=== PATIENT | female | born 1965 | race Caucasian/White ===

== ENCOUNTER → 2020-10-09 09:51 | Outpatient (CLI) | payer OTHER, SELFPAY ==
--- NOTE | 2020-10-09 09:54 | BI_ITS ---
MAMMOGRAPHY - BILATERAL SCREENING REASON FOR EXAM: Female, 55 years old. Routine annual screening examination. PERTINENT HISTORY: Non-contributory. TECHNIQUE: Digital bilateral breast ross (3D mammographic acquisition) in the CC and MLO projections. 2-D mediolateral oblique (MLO) and craniocaudad (CC) views of both breasts were obtained. CAD: Full Field Digital Mammography with Computer Added Detection was performed. COMPARISON: Comparison is made with prior outside examination dated 05/12/2017. FINDINGS: Breast Composition: There are scattered areas of fibroglandular density. There are no dominant masses or suspicious calcifications. Stable small benign-appearing bilateral axillary lymph. No other significant abnormalities are identified. There has been no significant change since the prior study. BI/SCRN MAMM (CAD)W/ROSS BILAT IMPRESSION: Stable bilateral screening mammogram. Yearly follow-up mammogram recommended. (A) ASSESSMENT CATEGORY: BIRADS Category 2: Benign. A letter regarding these results will be sent to the patient by the facility within 30 days. Approximately 10% of breast cancers are not detected by mammography. A normal mammogram should not delay biopsy of a clinically suspicious abnormality. [id number] Electronically Signed: Ahsan Wright MD at 10:59 EDT , Service support ,
== END ==
PROVIDERS: PCP Nurse Practitioner Family; Referring Provider Nurse Practitioner Family; Visit Provider Nurse Practitioner Family
DX: Z12.31 Encounter for screening mammogram for malignant neoplasm of breast (principal)
CPT/HCPCS: 77063; 77067

== ENCOUNTER 2021-07-15 12:02 | Outpatient (CLI) | payer OTHER, SELFPAY | END 2021-07-15 23:59 | disposition short-term general hospital (02) | LOC: LABSPEC 12:04 | PROVIDERS: PCP Nurse Practitioner Family; Referring Provider Physician Assistant; Visit Provider Physician Assistant | DX: U07.1 COVID-19 (principal) | CPT/HCPCS: 87635; U0003; U0005 ==

== ENCOUNTER 2021-10-15 06:21 | Day surgery (SDC) | payer OTHER, SELFPAY ==
[2021-10-15] VITALS (14 sets, daily range): BP systolic 110–159; BP diastolic 44–118; PULSE 58–67; RESP 16–18; TEMP 36.3–36.7; O2SAT 97–100; BMI 37.8
[2021-10-15] MEDS: Lactated Ringers 1,000 ML 15 ML IV (06:56)
--- NOTE | 2021-10-15 07:00 | PCM.HP.STD ---
HPI - General HPI Narrative MILAD L[address], is a 56 F who presents for screening colonoscopy. She had a previous one when she was in her 40s. She has a family history of colon cancer. Fortunately she has been asymptomatic. No abdominal pain. No black stools. No blood in her stools. She has a good feeling of wellness. [facility] Medical History (Updated 10/15/21 @ 07:[address] Aquilino Anaya MD) Alcohol use Anxiety Arthritis Back pain Fatty liver History of edema History of irregular heartbeat Hypertension Injury of back Leg cramps Non-smoker Post-menopausal Thyroid disease Wears glasses Home Medications ergocalciferol (vitamin D2) 1,250 mcg (50,000 unit) capsule 1 unit PO DAILY 09/09/21 [History Last Taken Unknown] hydrochlorothiazide 25 mg tablet 25 mg PO DAILY 09/09/21 [History Last Taken Unknown] levothyroxine 50 mcg tablet 1 tablet PO DAILY 09/09/21 [History Last Taken Unknown] terbinafine HCl 250 mg tablet 250 mg PO DAILY 09/09/21 [History Last Taken Unknown] biotin 1 mg PO DAILY 10/13/21 [History Last Taken Unknown] cholecalciferol (vitamin D3) [Vitamin D3] 50 mcg PO DAILY 10/13/21 [History Last Taken Unknown] magnesium 200 mg PO DAILY 10/13/21 [History Last Taken Unknown] turmeric 400 mg PO DAILY 10/13/21 [History Last Taken Unknown] vit C-Zn gluc-herbal no.325 [Elderberry Zinc Vit C] 1 flakita PO DAILY 10/13/21 [History Last Taken Unknown] Allergy/AdvReac Type Severity Reaction Status Date / Time metronidazole [From Flagyl] Allergy Hives Verified 10/15/21 06:43 Surgical History (Updated 10/13/21 @ 13:31 by Christie Victoria) History of delivery Hx laparoscopic cholecystectomy Hx of hysterectomy Social History Smoking Status: Never smoker ROS Constitutional Constitutional: Reports systems reviewed and no addt'l complaints, except as documented Cardiovascular Cardiovascular: Denies chest pain Respiratory/Chest Respiratory/Chest: Denies shortness of breath at rest Gastrointestinal Gastrointestinal: Denies abdominal pain, change in bowel habits, hematochezia or melena Vital Signs Vital Signs Vital Signs: 10/15/21 06:45 10/15/21 06:46 Temperature 98.0 F Temperature Source Temporal Pulse Rate 58 L Respiratory Rate 18 Respiratory Pattern Normal Blood Pressure 129/75 H Blood Pressure Mean 93 Blood Pressure Source Monitor Blood Pressure Position Semi-Fowlers Blood Pressure Location Left Arm Pulse Ox 100 Oxygen Delivery Method Room Air Weight Weight: 227 lb 9.6 oz Body Mass Index (BMI) 37.8 Physical Exam Const alert, oriented x3 and no apparent distress General Appearance: cooperative and comfortable Eyes General Eye: normal appearance of both eyes Neck General: normal visual inspection Chest inspection of chest normal Resp Effort and Inspection: able to speak in complete sentences and symmetric chest movement Auscultation: clear to auscultation bilaterally Cardio regular rate and regular rhythm GI soft to palpation, non-tender and non-distended Extremity no calf tenderness Neuro oriented x3 Psych thought process normal Results Lab / Micro Data Micro: Microbiology 10/14/21 12:55 Interface Orders SARS-CoV-2 Antigen (Rapid) - Final Assessment & Plan Assessment/Plan (1) Screening for intestinal cancer: PLAN: The patient presents via open access today for screening colonoscopy. She is aware of the technique, benefit, risk, alternatives. She has had an opportunity to ask and have questions answered. We will proceed as noted. Aquilino Anaya M.D., F.A.C.S.
[2021-10-15] MEDS: Midazolam 5 MG/ML Syringe (07:36)
--- NOTE | 2021-10-15 08:02 | OP.COLON_ITS ---
Patient Name: Kira Cedillo Procedure Date: 10/15/2021 7:30 AM Date of : 1965 Age: 56 Procedure: Colonoscopy Indications: Screening for colorectal malignant neoplasm Providers: Aquilino Anaya MD Medicines: Midazolam 4.5 mg IV, Meperidine 100 mg IV Patient Profile: Last Colonoscopy: more than 10 years ago. Complications: No immediate complications. Procedure: Pre-Anesthesia Assessment: - Prior to the procedure, a History and Physical was performed, and patient medications and allergies were reviewed. The patient's tolerance of previous anesthesia was also reviewed. The risks and benefits of the procedure and the sedation options and risks were discussed with the patient. All questions were answered, and informed consent was obtained. Prior Anticoagulants: The patient has taken no previous anticoagulant or antiplatelet agents. ASA Grade Assessment: II - A patient with mild systemic disease. After reviewing the risks and benefits, the patient was deemed in satisfactory condition to undergo the procedure. After I obtained informed consent, the scope was passed under direct vision. Throughout the procedure, the patient's blood pressure, pulse, and oxygen saturations were monitored continuously. The adult colonoscope was introduced through the anus and advanced to the cecum, identified by appendiceal orifice and ileocecal valve. The colonoscopy was performed without difficulty. The patient tolerated the procedure well. The quality of the bowel preparation was good. The ileocecal valve and the appendiceal orifice were photographed. Moderate Sedation: Moderate (conscious) sedation was personally administered by the endoscopist. The following parameters were monitored: oxygen saturation, heart rate, blood pressure, and response to care. Total physician intraservice time was 15 minutes. Scope In: 7:40:25 AM Scope Withdrawal Time 0 hours 7 minutes 52 seconds Scope Out: 7:56:48 AM Total Procedure Duration Time 0 hours 16 minutes 23 seconds Findings: The digital rectal exam findings include non-thrombosed internal hemorrhoids and internal hemorrhoids that prolapse with straining, but spontaneously regress to the resting position (Grade II). The colon (entire examined portion) appeared normal. Impression: - Non-thrombosed internal hemorrhoids and internal hemorrhoids that prolapse with straining, but spontaneously regress to the resting position (Grade II) found on digital rectal exam. - The entire examined colon is normal. - No specimens collected. Recommendation: - Discharge patient to home. - Resume previous diet. - Continue present medications. - Repeat colonoscopy in 10 years for screening purposes. Procedure Code(s): --- Professional --- 72204, Colonoscopy, flexible; diagnostic, including collection of specimen(s) by brushing or washing, when performed (separate procedure) 64591, 58, Moderate sedation services provided by the same physician or other qualified health district manager primary care sales performing the diagnostic or therapeutic service that the sedation supports, requiring the presence of an independent trained observer to assist in the monitoring of the patient's level of consciousness and physiological status; initial 15 minutes of intraservice time, patient age 5 years or older Diagnosis Code(s): --- Professional --- Z12.11, Encounter for screening for malignant neoplasm of colon K64.1, Second degree hemorrhoids CPT copyright 2017 [employer] [place] [employer]. All rights reserved. The codes documented in this report are preliminary and upon judicial clerk review may be revised to meet current compliance requirements. Aquilino Anaya MD 10/15/2021 8:02:14 AM This report has been signed electronically. Number of Addenda: 0 Note Initiated On: 10/15/2021 7:30 AM
--- NOTE | 2021-10-15 08:03 | OP.CCLET_ITS ---
10/15/2021 Emperatriz Jordan [place] [id number] [address] Re : Colonoscopy procedure for Kira Small Dear Dr. Jordan This procedure was performed on Friday, October 15, 2021. My impressions and recommendations are as follows: Impressions : - Non-thrombosed internal hemorrhoids and internal hemorrhoids that prolapse with straining, but spontaneously regress to the resting position (Grade II) found on digital rectal exam. - The entire examined colon is normal. - No specimens collected. Recommendations : - Discharge patient to home. - Resume previous diet. - Continue present medications. - Repeat colonoscopy in 10 years for screening purposes. My findings are described in the full procedure note, which is enclosed. If I can be of further assistance, please feel free to contact me at Doctor phone number(s): Work: . Sincerely, Aquilino Anaya MD 10/15/2021 8:02:14 AM This report has been signed electronically.
== END 2021-10-15 08:53 | disposition home or self-care (01) ==
LOC: EN 06:21 → AC 06:23
PROVIDERS: PCP Family Medicine; Referring Provider Family Medicine; Visit Provider Surgery
PROC: 0DJD8ZZ Inspection of Lower Intestinal Tract, Via Natural or Artificial Opening Endoscopic (ICD-10-PCS; CPT 45378; principal; 2021-10-15 07:25)
DX: Z12.11 Encounter for screening for malignant neoplasm of colon (principal); K64.1 Second degree hemorrhoids; I10 Essential (primary) hypertension; E07.9 Disorder of thyroid, unspecified; Z20.822 Contact with and (suspected) exposure to COVID-19; Z78.0 Asymptomatic menopausal state; Z79.890 Hormone replacement therapy; Z80.0 Family history of malignant neoplasm of digestive organs
CPT/HCPCS: 45378; 87426; 99152; 99153; C9803; J7120

== ENCOUNTER → 2021-10-27 | Outpatient (CLI) | payer OTHER, SELFPAY ==
[2021-10-27 10:17] LABS: AST(SGOT) 12 U/L (15-37); Alanine Aminotransfer ALT/SGPT 29 U/L (13-56); Albumin, Serum 4.1 g/dL (3.2-5.0); Alkaline Phosphatase 71 U/L (45-117); Bilirubin, Direct 0.11 mg/dL (0.00-0.30); Globulin 3.4 g/dL (2.2-4.2); Protein, Total 7.5 g/dL (6.4-8.2)
== END | disposition home or self-care (01) ==
LOC: MTLAB 08:14
PROVIDERS: PCP Family Medicine; Referring Provider Family Medicine; Visit Provider Family Medicine
DX: B35.1 Tinea unguium (principal)
CPT/HCPCS: 36415; 80076

== ENCOUNTER → 2021-12-03 | Outpatient (CLI) | payer OTHER, SELFPAY ==
--- NOTE | 2021-12-03 13:52 | RAD_ITS ---
STUDY: X-RAY - RIGHT FOOT CLINICAL: Female, 56 years old. Pain at the base of the fifth metatarsal. TECHNIQUE: 3 view(s) of the foot. COMPARISON: None. FINDINGS: Plantar spurs. Normal visualized subtalar, talonavicular, calcaneocuboid, tarsal and tarsometatarsal articulations. Normal metatarsi. Normal metatarsophalangeal joint of the great toe. Normal tibial and fibular sesamoid bones. Normal interphalangeal joint of the great toe. Normal phalanges of the great toe. Normal second through fifth metatarsophalangeal joints. Normal interphalangeal joints and phalanges of the lesser toes. The soft tissue structures are unremarkable. RAD/Foot min 3 Views IMPRESSION: Calcaneal spurs. Electronically Signed: Ahsan Wright MD at 16:20 EDT ,
== END | disposition home or self-care (01) ==
LOC: MTRAD 13:50
PROVIDERS: PCP Family Medicine; Referring Provider Family Medicine; Visit Provider Family Medicine
DX: M79.671 Pain in right foot (principal)
CPT/HCPCS: 73630

== ENCOUNTER → 2021-12-10 | Outpatient (CLI) | payer OTHER, SELFPAY ==
--- NOTE | 2021-12-10 14:10 | BI_ITS ---
MAMMOGRAPHY - BILATERAL SCREENING REASON FOR EXAM: Female, 56 years old. Routine annual screening examination. PERTINENT HISTORY: Non-contributory. TECHNIQUE: Digital bilateral breast ross (3D mammographic acquisition) in the CC and MLO projections. 2-D mediolateral oblique (MLO) and craniocaudad (CC) views of both breasts were obtained. CAD: Full Field Digital Mammography with Computer Added Detection was performed. COMPARISON: Screening mammogram from 10/09/2020. FINDINGS: Breast Composition: There are scattered areas of fibroglandular density. There are no dominant masses or suspicious calcifications. No other significant abnormalities are identified. There has been no significant change since the prior study. BI/SCRN MAMM (CAD)W/ROSS BILAT IMPRESSION: Stable bilateral screening mammogram. Yearly follow-up mammogram recommended. (A) ASSESSMENT CATEGORY: BIRADS Category 1: Negative. A letter regarding these results will be sent to the patient by the facility within 30 days. Approximately 10% of breast cancers are not detected by mammography. A normal mammogram should not delay biopsy of a clinically suspicious abnormality. [id number] Electronically Signed: Anoop Cormier, at 8:50 EDT ,
== END | disposition home or self-care (01) ==
LOC: OPBI 14:08
PROVIDERS: PCP Family Medicine; Referring Provider Family Medicine; Visit Provider Family Medicine
DX: Z12.31 Encounter for screening mammogram for malignant neoplasm of breast (principal)
CPT/HCPCS: 77063; 77067

== ENCOUNTER → 2022-01-12 | Outpatient (CLI) | payer OTHER, SELFPAY ==
[2022-01-12 10:52] LABS: Anion Gap 2 (5-15); BUN 16 mg/dL (7-18); BUN/Creat Ratio 26.9 RATIO (10-20); Calcium,Total 8.9 mg/dL (8.5-10.1); Chloride 105 mmol/L (98-107); EST Glomerular Filtration Rate 110 mL/min (>60); Est Glom Filt Rate - Afr Amer 133 mL/min (>60); Glucose 93 mg/dL (74-106); Potassium 4.1 mmol/L (3.5-5.1); Sodium Level 138 mmol/L (136-145); Thyroid Stim Hormone (TSH) 2.31 uIU/mL (0.358-3.74)
== END | disposition home or self-care (01) ==
LOC: MTLAB 07:48
PROVIDERS: PCP Family Medicine; Referring Provider Internal Medicine Endocrinology, Diabetes & Metabolism; Visit Provider Internal Medicine Endocrinology, Diabetes & Metabolism
DX: E03.8 Other specified hypothyroidism (principal)
CPT/HCPCS: 36415; 80048; 84443

== ENCOUNTER → 2022-07-20 | Outpatient (CLI) | payer OTHER, SELFPAY ==
[2022-07-20 15:47] LABS: Vitamin D,25 Hydroxy 85.4 ng/mL
[2022-07-20 16:02] LABS: Anion Gap 7 (5-15); BUN 20 mg/dL (7-18); BUN/Creat Ratio 27.5 RATIO (10-20); Calcium,Total 9.2 mg/dL (8.5-10.1); Chloride 99 mmol/L (98-107); Creatinine, Serum 0.73 mg/dL (0.55-1.02); EST Glomerular Filtration Rate 87 mL/min (>60); Est Glom Filt Rate - Afr Amer 106 mL/min (>60); Glucose 89 mg/dL (74-106); Potassium 3.8 mmol/L (3.5-5.1); Sodium Level 138 mmol/L (136-145); Thyroid Stim Hormone (TSH) 1.57 uIU/mL (0.358-3.74)
== END | disposition home or self-care (01) ==
LOC: MTLAB 13:05
PROVIDERS: PCP Family Medicine; Referring Provider Internal Medicine Endocrinology, Diabetes & Metabolism; Visit Provider Internal Medicine Endocrinology, Diabetes & Metabolism
DX: E03.8 Other specified hypothyroidism (principal); E55.9 Vitamin D deficiency, unspecified
CPT/HCPCS: 36415; 80048; 82306; 84443

== ENCOUNTER → 2022-08-12 | Outpatient (CLI) | payer OTHER, SELFPAY ==
[2022-08-12 12:40] LABS: Absolute Neutrophil Count 2.1 X10^3/uL (2.0-7.7); Basophil# 0.04 X10^3/uL; Basophil% 0.9 % (0-1); Eosinophil# 0.14 X10^3/uL; Hematocrit 43.2 % (37-47); Hemoglobin 14.6 g/dL (12.0-15.0); Lymphocyte % 42.8 % (19-41); Mean Corp Hgb Conc 33.8 g/dL (32-36); Mean Corpuscular Hgb 29.7 pg (27.0-32.0); Mean Corpuscular Volume 87.8 fL (81-99); Mean Platelet Vol. 10.8 fl (6.2-12.0); Monocyte# 0.34 X10^3/uL; Monocyte% 7.3 % (0-10); NRBC Flagged by Analyzer 0 % (0-5); Neutrophil # 2.14 X10^3/uL (2.7-7.7); Neutrophil % 45.8 % (47-70); Platelet Count 221 K/mm3 (150-450); RBC Distribution Width CV 12.5 % (11.6-14.6); RBC Distribution Width SD 40.3 fl (35.1-43.9); Red Blood Count 4.92 M/mm3 (4.2-5.4); White Blood Count 4.7 K/mm3 (4.4-11.0)
[2022-08-12 13:38] LABS: Cholesterol 249 mg/dL (200); High Density Lipoprotein 63 mg/dL; Triglycerides 123 mg/dL; Very Low Density Lipoprotein 25 mg/dL (5-40)
== END | disposition home or self-care (01) ==
LOC: BFHLAB 10:49
PROVIDERS: PCP Family Medicine; Visit Provider Family Medicine
DX: Z00.00 Encounter for general adult medical examination without abnormal findings (principal); I10 Essential (primary) hypertension; E78.5 Hyperlipidemia, unspecified
CPT/HCPCS: 36415; 80061; 85025

== ENCOUNTER → 2022-12-30 | Outpatient (CLI) | payer OTHER, SELFPAY ==
--- NOTE | 2022-12-30 10:21 | BI_ITS ---
MAMMOGRAPHY - BILATERAL SCREENING REASON FOR EXAM: Female, 57 years old. Routine annual screening examination. PERTINENT HISTORY: Non-contributory. TECHNIQUE: Digital bilateral breast ross (3D mammographic acquisition) in the CC and MLO projections. 2-D mediolateral oblique (MLO) and craniocaudad (CC) views of both breasts were obtained. CAD: Full Field Digital Mammography with Computer Added Detection was performed. COMPARISON: Comparison is made with prior study December 10, 2021 and October 09, 2020. FINDINGS: Breast Composition: There are scattered areas of fibroglandular density. There are no dominant masses or suspicious calcifications. Stable small benign-appearing bilateral axillary lymph. No other significant abnormalities are identified. There has been no significant change since the prior study. BI/SCRN MAMM (CAD)W/ROSS BILAT IMPRESSION: Stable bilateral screening mammogram. Yearly follow-up mammogram recommended. (A) ASSESSMENT CATEGORY: BIRADS Category 2: Benign. A letter regarding these results will be sent to the patient by the facility within 30 days. Approximately 10% of breast cancers are not detected by mammography. A normal mammogram should not delay biopsy of a clinically suspicious abnormality. [id number] Electronically Signed: Ahsan Wright MD at 12:52 EDT ,
== END | disposition home or self-care (01) ==
LOC: OPBI 10:20
PROVIDERS: PCP Family Medicine; Referring Provider Family Medicine; Visit Provider Family Medicine
DX: Z12.31 Encounter for screening mammogram for malignant neoplasm of breast (principal)
CPT/HCPCS: 77063; 77067

== ENCOUNTER → 2023-02-03 | Outpatient (CLI) | payer OTHER, SELFPAY ==
[2023-02-03 15:49] LABS: Anion Gap 7 (5-15); BUN 15 mg/dL (7-18); BUN/Creat Ratio 24.8 RATIO (10-20); Chloride 102 mmol/L (98-107); EST Glomerular Filtration Rate 108 mL/min (>60); Est Glom Filt Rate - Afr Amer 130 mL/min (>60); Glucose 100 mg/dL (74-106); Potassium 3.6 mmol/L (3.5-5.1); Sodium Level 137 mmol/L (136-145); Thyroid Stim Hormone (TSH) 1.26 uIU/mL (0.358-3.74)
== END | disposition home or self-care (01) ==
LOC: MTLAB 12:59
PROVIDERS: PCP Family Medicine; Referring Provider Internal Medicine Endocrinology, Diabetes & Metabolism; Visit Provider Internal Medicine Endocrinology, Diabetes & Metabolism
DX: E03.8 Other specified hypothyroidism (principal)
CPT/HCPCS: 36415; 80048; 82306; 84443

== ENCOUNTER → 2024-01-12 | Outpatient (CLI) | payer OTHER, SELFPAY ==
--- NOTE | 2024-01-12 09:22 | BI_ITS ---
MAMMOGRAPHY - BILATERAL SCREENING REASON FOR EXAM: Female, 58 years old. Routine annual screening examination. PERTINENT HISTORY: Non-contributory. TECHNIQUE: Digital bilateral breast ross (3D mammographic acquisition) in the CC and MLO projections. 2-D mediolateral oblique (MLO) and craniocaudad (CC) views of both breasts were obtained. CAD: Full Field Digital Mammography with Computer Added Detection was performed. COMPARISON: Comparison is made with prior study dated December 30, 2022 and December 10, 2021. FINDINGS: Breast Composition: There are scattered areas of fibroglandular density. There is evidence of a new 1.6 cm x 1.2 cm mass in the central medial anterior aspect of the right breast. There is also enlargement of the right axilla lymph nodes at this time. Biopsy recommended. No other significant abnormalities are identified. BI/SCRN MAMM (CAD)W/ROSS BILAT IMPRESSION: New 1.6 cm x 1.2 cm mass in the central medial anterior aspect of the right breast. Enlarged right axillary lymph nodes. Biopsy recommended. ASSESSMENT CATEGORY: BIRADS Category 4: Suspicious - Biopsy Should Be Considered. A letter regarding these results will be sent to the patient by the facility within 30 days. Approximately 10% of breast cancers are not detected by mammography. A normal mammogram should not delay biopsy of a clinically suspicious abnormality. [id number] Electronically Signed: Ashan Wright MD at 10:42 EDT ,
[2024-01-12 10:12] LABS: Absolute Lymphocyte Count 2.03 X10^3/uL (0.83-4.51); Basophil# 0.02 X10^3/uL; Basophil% 0.4 % (0-1); Eosinophils% 2.2 % (0-5); Hematocrit 42.1 % (37-47); Hemoglobin 14.1 g/dL (12.0-15.0); Lymphocyte # 2.03 X10^3/ul (0.83-4.51); Lymphocyte % 44.8 % (19-41); Mean Corp Hgb Conc 33.5 g/dL (32-36); Mean Corpuscular Hgb 28.8 pg (27.0-32.0); Mean Corpuscular Volume 86.1 fL (81-99); Mean Platelet Vol. 10.4 fl (6.2-12.0); Monocyte# 0.35 X10^3/uL; Monocyte% 7.7 % (0-10); NRBC Flagged by Analyzer 0 % (0-5); Neutrophil # 2.03 X10^3/uL (2.7-7.7); Neutrophil % 44.9 % (47-70); Platelet Count 210 K/mm3 (150-450); RBC Distribution Width CV 12.9 % (11.6-14.6); RBC Distribution Width SD 40.3 fl (35.1-43.9); Red Blood Count 4.89 M/mm3 (4.2-5.4); White Blood Count 4.5 K/mm3 (4.4-11.0)
[2024-01-12 11:13] LABS: ALB/GLOB Ratio 1.2 RATIO (0.9-2.4); AST(SGOT) 17 U/L (15-37); Alanine Aminotransfer ALT/SGPT 28 U/L (13-56); Albumin, Serum 3.9 g/dL (3.2-5.0); Alkaline Phosphatase 79 U/L (45-117); Anion Gap 7 (5-15); BUN 13 mg/dL (7-18); BUN/Creat Ratio 22.1 RATIO (10-20); Calcium,Total 9.2 mg/dL (8.5-10.1); Chloride 101 mmol/L (98-107); Cholesterol 238 mg/dL (200); Creatinine, Serum 0.59 mg/dL (0.55-1.02); EST Glomerular Filtration Rate 111 mL/min (>60); Est Glom Filt Rate - Afr Amer 134 mL/min (>60); Globulin 3.3 g/dL (2.2-4.2); Glucose 85 mg/dL (74-106); High Density Lipoprotein 60 mg/dL; Potassium 3.8 mmol/L (3.5-5.1); Protein, Total 7.2 g/dL (6.4-8.2); Sodium Level 135 mmol/L (136-145); Triglycerides 149 mg/dL; Very Low Density Lipoprotein 30 mg/dL (5-40)
== END | disposition home or self-care (01) ==
LOC: OPBI 09:02
PROVIDERS: PCP Family Medicine; Referring Provider Family Medicine; Visit Provider Family Medicine
DX: Z00.00 Encounter for general adult medical examination without abnormal findings (principal); Z12.31 Encounter for screening mammogram for malignant neoplasm of breast; I10 Essential (primary) hypertension; E78.5 Hyperlipidemia, unspecified
CPT/HCPCS: 36415; 77063; 77067; 80053; 80061; 85025

== ENCOUNTER → 2024-01-19 | Outpatient (CLI) | payer OTHER, SELFPAY ==
--- NOTE | 2024-01-19 | BRBX_PTH ---
PATIENT: [address] LOC: OPUS U#:[id number] AGE/SX: 58/F ROOM: RE01/19/[address]: Dr. Emperatriz Jordan MD : 1965 BED: DIS: 01/19/2024 SPEC #: [id number] RECD: 01/19/24 12:00 STATUS: EVA MARIE #: [id number] ALEXANDER: 01/19/24 00:[address]: Emperatriz Jordan DEPT: SURGICAL PATHOLOGY RECD BY: Truong Cortes Tissues: A - Axillary lymph node, NOS B - Right breast, NOS Procedures: Frozen Section (charge) Surgery Specimen Level IV HEADER OPERATION: Biopsy of right breast mass and lymph node PRE-OP DIAGNOSIS: Right breast mass TISSUE SUBMITTED: A- Lymph node right axillary, B- Right breast mass tissue-3o'clock, 2.0cm from nipple Ischemic Time: 1 minute Fixation Time: 30 hours FROZEN SECTION DIAGNOSIS Right axillary lymph node, biopsy: Metastatic carcinoma, non-small cell. / 01/19/2024 MICROSCOPIC DIAGNOSIS A. Right axillary lymph node, core biopsy: Metastatic carcinoma consistent with breast primary. See comment. B. Right breast, core biopsy: Invasive ductal carcinoma. See synoptic report below. / 01/22/2024 COMMENT A. Immunohistochemistry ([id number]) supports the above diagnosis. B. INVASIVE BREAST CANCER SUMMARY: Procedure: Needle core biopsy Specimen Laterality: Right breast Tumor site: 3o'clock, 2.0cm from nipple Histologic type: Invasive ductal carcinoma Provisional Histologic grade: 3 Tubule Differentiation Score: 3 Nuclear Pleomorphism Score: 3 Mitotic Rate Score: 2 Tumor Size ( greatest dimension): 9.0mm Ductal Carcinoma In situ: Not identified Angiolymphatic Invasion: Not identified Microcalcifications: Not identified Additional Findings: None Breast Marker Study: [id number] ER:>95%(strong intensity) VA:32% (moderate intensity) Her2:1-2+(equivocal) Ki67:75% [id number]:Pending The above summary is in compliance with [employer] [place] [employer] (CAP) Cancer Protocols Checklist and [place] [employer] Committee on Cancer (AJCC), Staging Manual, 8th Ed. Dualish results for Her2 will be reported as a addendum. Case has been reviewed in consultation with Dr. Torres who concurs with the above diagnosis. IDC:SJ MICROSCOPIC DESCRIPTION Slides are reviewed. GROSS DESCRIPTION A. Received in saline for frozen section diagnosis labeled with the patient's name is a specimen designated Right lymph node. The specimen consists of two core of light dinh soft tissue each measuring 0.5cm in length and 0.1cm in diameter. The entire specimen is submitted for frozen section diagnosis in one cassette. B. Received in fixative is one container labeled with the patient's name and designated Right breast. The specimen consists of two elongated fragments of fibroadipose tissue measuring in aggregate 1.5 x 0.2 x 0.1cm. The entire specimen is submitted in one cassette. Elizabeth 01/19/2024 TC:0 CPT: 64685v0 ADDENDUM ADDENDUM ADDENDUM ADDENDUM ADDENDUM ADDENDUM ADDENDUM ADDENDUM ADDENDUM ADDENDUM ADDENDUM ADDENDUM ADDENDUM ADDENDUM ADDENDUM ADDENDUM ADDENDUM ADDENDUM ADDENDUM ADDENDUM ADDENDUM ADDENDUM 02/05/2024 09:47 ADDENDUM 02/05/2024 09:47 ADDENDUM 02/05/2024 09:47 ADDENDUM 02/05/2024 09:47 ADDENDUM 02/05/2024 09:47 This addendum is added to incorporate an outside pathology consultation report. The case was examined at [facility] (#[id number]) and the following diagnosis was rendered. A. Right axillary lymph node, core biopsy: Metastatic carcinoma consistent with breast primary. Outside immunohistochemistry stains reviewed: Estrogen receptor positive, Progesterone receptor positive (rare weak). AE1/3 positive, GATA3 positive, Mammaglobin positive (weak). B. Right breast, core biopsy: Invasive ductal carcinoma (8mm in this core biopsy specimen), Gordon grade 3. Outside immunohistochemistry stains reviewed: Estrogen receptor positive (>95%), Progesterone receptor positive (32%), per outside report ADELITA for HER2/ester not amplified; e-cadherin positive, calponin negative, CK8 positive. Please see complete above mentioned consultation report in EMR
--- NOTE | 2024-01-19 | IMM_PTH ---
PATIENT: [address] LOC: [facility] U#:[id number] AGE/SX: 58/F ROOM: RE01/19/[address]: Dr. Emperatriz Jordan MD : 1965 BED: DIS: 01/19/2024 SPEC #: [id number] RECD: 01/22/24 11:39 STATUS: EVA REQ #: [id number] ALEXANDER: 01/19/24 00:[address]: Emperatriz Jordan DEPT: IMMUNOHISTOCHEMISTRY RECD BY: Truong Cortes Tissues: A - Axillary lymph node, NOS B - Right breast, NOS Procedures: CALPONIN-1 (add) CK5-6 (add) CK8 (add) E-CAD (add) ER (add) HER2 TONI (add) KI-67 (add) MAMM (add) P53 (add) NJ (add) Pankeratin (add) GATA3 (add) P40 (add) MOC-31 (add) ER (initial) NJ (initial) PHYSICIAN & INSTITUTION [address] [address] SPECIMEN INFORMATION: Tissue Source: A- Right axillary lymph node, B- Right breast mass Clinical Info: Right breast mass Specimen Number: [id number], B CPT code: [id number] METHODOLOGY: Deparaffinized sections of prefer/formalin-fixed tissue or PAP/DQ stained slides are incubated with monoclonal/polyclonal antibodies/oligonucleotide probes. Localization is made via biotin free immunoperoxidase method. Appropriate controls are performed and reacted as expected. Results on target cell population are indicated in the following table: RESULTS: ANTIBODY / CLONE RESULT Block A GATA3 (L50-823) positive Mammaglobin (31A5) positive, weak ER (6F11) positive NJ (1E2) positive, rare AE1-3 (AE1/AE3/PCK26) positive Block B P53 (DO-7) positive, missense pattern Ki-67 (30-9) positive, 75% CK8 (86swdnZ01) positive CK5-6 (D5 & 1684) negative Calponin-1 (QA812S) negative P40 (BC28) positive E-Cad (ECH-6) positive MOC-31 (2641) MORPHOMETRIC ANALYSIS ER (clone 6F11) > 95%, strong intensity NJ (clone 16/1E2) 32%, moderate intensity Her-2Neu (clone CB11) 1-2+ The prognostic test for HER2 is performed on formalin-fixed paraffin embedded tissue. A 3+ (positive) staining pattern is defined as intense, homogeneous, complete, circumferential membranous staining in >10% of contiguous tumor cells. A similar weak (2+) staining pattern is interpreted as equivocal. ADELITA follow-up testing is recommended for all equivocal cases. Positivity/negativity for ER/NJ is reported if > or < 1% of the tumor cells are immuno- reactive, respectively. The ASCO/CAP criteria is used for scoring. Reference: Journal of Clinical Oncology, 2013; 31:3913-4650 & 2010; 16:9539-1933. Ischemic time: Less than one hour: Yes. These assays have not been validated on decalcified tissues. Results should be interpreted with caution given the likelihood of false negativity on decalcified specimens or fixation greater than 72 hours. Alternative testing methods (FISH/dualISH for Her2; gene expression for ER) are recommended, if applicable. Please notify the laboratory if additional testing is required. These tests were developed and their performance characteristics determined by [facility]. They may not have been cleared or approved by the U.S. Food and Drug Administration. The FDA has determined that such clearance or approval is not necessary. The above immunohistochemical/dualISH markers are ordered and reviewed by the Pathologist. The test for HER 2 is performed on formalin-fixed paraffin embedded tissue using the CB11 mouse monoclonal antibody ([employer]). A 3+ staining pattern is interpreted as positive and is defined as a strong membranous staining involving the entire cell membrane in over 30% of invasive tumor cells. A similar weak staining pattern (2+) involving 10% of the tumor cells is interpreted as equivocal. HER 2 follow-up testing by FISH is recommended for all equivocal results. Reference: [place] [employer] of [employer] and the College [employer] [place] [employer] (J. Clin. Oncol. 23: 118-145, 2007). Fixative Used: Formalin; Duration of Fixation: 30 Hrs.; Sample Adequate: Yes INTERPRETATION: A. Right axillary lymph node, biopsy: Consistent with metastatic breast carcinoma. B. Right breast, biopsy: Invasive ductal carcinoma, provisional grade 3. Positive for estrogen receptors (favorable prognostic indicator). Positive for progesterone receptors (favorable prognostic indicator). Equivocal for overexpression of UHS6hlb. AM/mr 01/23/2024 ADDENDUM ADDENDUM ADDENDUM ADDENDUM ADDENDUM ADDENDUM ADDENDUM ADDENDUM ADDENDUM ADDENDUM ADDENDUM ADDENDUM ADDENDUM ADDENDUM ADDENDUM ADDENDUM ADDENDUM ADDENDUM ADDENDUM ADDENDUM ADDENDUM 01/26/2024 11:41 ADDENDUM 01/26/2024 11:41 ADDENDUM 01/26/2024 11:41 ADDENDUM 01/26/2024 11:41 ADDENDUM 01/26/2024 11:41 IN SITU HYBRIDIZATION (ADELITA) FOR HER2 Interpretation: Negative/ Not amplified HER2 : CEP-17 Ratio: 1.0 Average HER2 Signal: 2.1 Average CEP-17 Signal: 2.0 Number of Tumor Cells Scanned: 50 Interpretative Information: The INFORM HER2 Dual ADELITA DNA Probe Cocktail assay is performed on formalin-fixed paraffin embedded tissue and determines HER2 gene status by detecting HER2 copies via silver in situ hybridization (SISH) and Chromosome 17 copies via chromogenic red in situ hybridization on tumor cells. A minimum of 20 cells representing > 10% of contiguous and homogeneous invasive tumor cells were analyzed. HER2 gene status is classified as Non-amplified (HER2/Chr17 ratio < 2.0) or Amplified (HER2/Chr17 ratio greater than or equal to 2.0). If the resulting HER2/Chr17 ratio falls within 1.8 - 2.2 (Borderline), retesting by FISH is recommended. Reference: Marty AC, Magdalena ARECHIGAH, Lupe DG, et al: Recommendations for Human Epidermal Growth Factor Receptor 2 Testing in Breast Cancer: [place] [employer] / [employer] [place] [employer] Clinical Practice Guideline Update. J Clin Oncol 31:4608-8817, 2013.
--- NOTE | 2024-01-19 07:52 | US_ITS ---
STUDY: ULTRASOUND BREAST - RIGHT REASON FOR EXAM: Female, 58 years old. Abnormal mammogram. TECHNIQUE: Axial and longitudinal images of the RIGHT breast were performed with a high resolution ultrasound transducer. # OF IMAGES: 101 COMPARISON: Comparison is made with prior mammogram dated January 12, 2024. FINDINGS: RIGHT Breast: The right axilla was examined with ultrasound. There is a 2.4 cm x 1.5 cm 1.2 cm irregular appearing lymph node in the right axilla with increased blood flow. Biopsy recommended. There is also evidence of the 2, benign appearing lymph nodes in the axilla. The larger measures 1.2 cm x 1.2 cm x 0.5 cm. There is evidence of a 2.2 cm x 1.9 cm x 1.7 cm hypoechoic irregular nodule with posterior shadowing at the 3:00 position of the breast at 2 cm from nipple. US/Breast Limited Unilateral IMPRESSION: Abnormal appearing lymph node in the right axilla measuring 2.4 cm x 1.5 cm bone 0.2 cm. 2.2 cm x 1.9 cm x 1.7 cm hypoechoic irregular nodule with some posterior acoustical shadowing at the 3:00 position breast at 2 cm from the nipple. Biopsy recommended. ASSESSMENT CATEGORY: BIRADS Category 5: Highly Suggestive of Malignancy - Appropriate Action Should Be Taken. A letter regarding these results will be sent to the patient by the facility within 30 days. Electronically Signed: Ahsan Wright MD at 9:02 EDT ,
== END | disposition home or self-care (01) ==
PROVIDERS: PCP Family Medicine; Referring Provider Family Medicine; Visit Provider Family Medicine
DX: R92.8 Other abnormal and inconclusive findings on diagnostic imaging of breast (principal)
CPT/HCPCS: 76642; 81002; 88305; 88331; 88341; 88342

== ENCOUNTER → 2024-02-12 | Outpatient (CLI) | payer OTHER, SELFPAY ==
[2024-02-12 12:50] LABS: Anion Gap 4 (5-15); BUN 14 mg/dL (7-18); BUN/Creat Ratio 24.9 RATIO (10-20); Calcium,Total 8.9 mg/dL (8.5-10.1); Chloride 104 mmol/L (98-107); Creatinine, Serum 0.56 mg/dL (0.55-1.02); EST Glomerular Filtration Rate 117 mL/min (>60); Est Glom Filt Rate - Afr Amer 141 mL/min (>60); Glucose 80 mg/dL (74-106); Potassium 3.7 mmol/L (3.5-5.1); Sodium Level 138 mmol/L (136-145); Thyroid Stim Hormone (TSH) 1.49 uIU/mL (0.358-3.74)
== END | disposition home or self-care (01) ==
PROVIDERS: PCP Family Medicine; Referring Provider Internal Medicine Endocrinology, Diabetes & Metabolism; Visit Provider Internal Medicine Endocrinology, Diabetes & Metabolism
DX: E03.8 Other specified hypothyroidism (principal); E55.9 Vitamin D deficiency, unspecified
CPT/HCPCS: 36415; 80048; 82306; 84443

== ENCOUNTER 2024-10-03 15:00 | Outpatient (CLI) | payer OTHER, SELFPAY | END 2024-10-03 23:59 | disposition home or self-care (01) | LOC: MEDOUTP 15:04 | PROVIDERS: PCP Family Medicine | DX: Z45.2 Encounter for adjustment and management of vascular access device (principal); C50.811 Malignant neoplasm of overlapping sites of right female breast; Z17.0 Estrogen receptor positive status [ER+] | CPT/HCPCS: 96523 ==

== ENCOUNTER → 2024-12-16 | Outpatient (CLI) | payer OTHER, SELFPAY ==
[2024-12-16 11:02] LABS: Anion Gap 10 (5-15); BUN 12 mg/dL (4-19); Carbon Dioxide 23.1 mmol/L (21.0-32.0); Chloride 102 mmol/L (98-108); Creatinine, Serum 0.75 mg/dL (0.70-1.20); EST Glomerular Filtration Rate 91 (>60); Potassium 4.3 mmol/L (3.3-5.1); Sodium Level 135 mmol/L (133-145)
== END | disposition home or self-care (01) ==
LOC: MTLAB 09:00
PROVIDERS: PCP Family Medicine
DX: E87.1 Hypo-osmolality and hyponatremia (principal)
CPT/HCPCS: 36415; 80051; 82565; 84520

== ENCOUNTER → 2024-12-26 | Outpatient (CLI) | payer OTHER, SELFPAY ==
--- OUTSIDE RECORDS SUMMARY | 2024-12-26 07:09 | XMS RPT_ITS | CCD ---
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 Name Role Phone UNKNOWN, PROVIDER Unavailable Unavailable WM JIN MD Consulting Unavailable CURRY KELLEY NP Admitting Unavailab CURRY Perez NP Primary Care Unavailab CURRY Perez COUNSELING CENTER DIRECTOR Attending Unavailab le PROVIDER, UNKNOWN Consulting Unavailable PROVIDER, UNKNOWN Consulting Unavailable PROVIDER, UNKNOWN Consulting Unavailable SAM HOWELL Primary Care Unavailable SAM HOWELL Attending Unavailable WM JIN MD Consulting Unavailable DANTESAM RESENDIZ Admitting Unavailable PROVIDER, UNKNOWN Consulting Unavailable PROVIDER, UNKNOWN Consulting Unavailable PROVIDER, UNKNOWN Consulting Unavailable Rehan COUNSELING CENTER DIRECTOR, COUNSELING CENTER DIRECTOR-C Curry Primary Care Provide r Rehan COUNSELING CENTER DIRECTOR, MARCELLA-C Curry Referring Provider DoctorDr. Stoddard Attending Provider Nurse, Surgery Attending Provider Unavailable Laura Lauren Attending Provider Unavailable Dr. Aquilino Anaya Attending Provider Dr. Aquilino Anaya Other Provider Dr. Emperatriz Jordan Primary Care Provider Dr. Emperatriz Jordan Referring Provider [phone] Rehan COUNSELING CENTER DIRECTOR, MARCELLA-Margarito Steiner Primary Care Provide r Rehan COUNSELING CENTER DIRECTOR, COUNSELING CENTER DIRECTOR-C Curry Referring Provider Unavailable Primary Care Provider Unavailabl e Unavailable Primary Care Provider Unavailabl e Unavailable Primary Care Provider Unavailabl e Emperatriz Jordan MD Primary Care Provider Dr. Emperatriz Jordan MD Primary Care Provider Dr. Emperatriz Jordan MD Referring Provider [phone] Thomas ARMAS Attending Provider Dr. Nils Pang MD Attending Provider Dr. Thomas Hanson DO Referring Provider RADHA PHIPPS Attending Provider RADHA PHIPPS Referring Provider [phone] Julian GHOSH, [facility] Provider Vevay Dr. Thomas ARMAS Referring Provider TATIANNA ANIN E Attending Unavailable MIEDEL, EMPERATRIZ Referring Unavailable AN, LEONILA E Admitting Unavailable MIEDEL, EMPERATRIZ Primary Care Unavailable MIEDEL, EMPERATRIZ Primary Care Unavailable BADER, GILBERT Attending Unavailable MIEDEL, EMPERATRIZ Referring Unavailable BADER, GILBERT Attending Unavailable MIEDEL, EMPERATRIZ Primary Care Unavailable ROBOTHAM, RACHEL Referring Unavailable BADER, GILBERT Referring Unavailable MIEDEL, BYRON Primary Care Unavailable BADER, GILBERT Attending Unavailable SELF, SELF Referring Unavailable IHISSCHEDULE, INTERVENTIONAL RAD Attending Unavailable IHISSCHEDULE, INTERVENTIONAL RAD Admitting Unavailable MIEDEL, EMPERATRIZ Primary Care Unavailable BADER, GILBERT Attending Unavailable MIEDEL, EMPERATRIZ Primary Care Unavailable MIEDEL, EMPERATRIZ Referring Unavailable BADER, GILBERT Attending Unavailable MIEDEL, EMPERATRIZ Primary Care Unavailable MIEDEL, EMPERATRIZ Referring Unavailable MIEDEL, EMPERATRIZ Primary Care Unavailable ROEL GARCÍA Attending Unavailable MIEDEL, EMPERATRIZ Referring Unavailable BADER, GILBERT Referring Unavailable BADER, GILBERT Attending Unavailable MIEDEL, EMPERATRIZ Primary Care Unavailable BADER, GILBERT Referring Unavailable BADER, GILBERT Attending Unavailable MIEDEL, EMPERATRIZ Primary Care Unavailable MIEDEL, EMPERATRIZ Primary Care Unavailable MIEDEL, EMPERATRIZ Referring Unavailable AN, LEONILA E Attending Unavailable BADER, GILBERT Referring Unavailable MIEDEL, EMPERATRIZ Primary Care Unavailable BADER, GILBERT Attending Unavailable BADER, GILBERT Referring Unavailable BADER, GILBERT Attending Unavailable MIEDEL, EMPERATRIZ Primary Care Unavailable AN, LEONILA E Attending Unavailable AN, LEONILA E Referring Unavailable MIEDEL, EMPERATRIZ Primary Care Unavailable AN, LEONILA E Attending Unavailable AN, LEONILA E Referring Unavailable [facility] Primary Care Unavailable AN, LEONILA E Attending Unavailable AN, LEONILA E Referring Unavailable [facility] Primary Care Unavailable AN, LEONILA E Attending Unavailable AN, LEONILA E Referring Unavailable [facility] Primary Care Unavailable AN, LEONILA E Attending Unavailable [facility] Referring Unavailable [facility] Primary Care Unavailable BADER, GILBERT Referring Unavailable BADER, GILBERT Attending Unavailable [facility] Primary Care Unavailable THERESA MARROQUIN Attending Unavailable THERESA MARROQUIN Referring Unavailable [facility] Primary Care Unavailable BADER, GILBERT Attending Unavailable RACHEL VAZ Referring Unavailable [facility] Primary Care Unavailable BADER, GILBERT Attending Unavailable [facility] Primary Care Unavailable [facility] Referring Unavailable BADER, GILBERT Attending Unavailable [facility] Primary Care Unavailable [facility] Referring Unavailable [facility] Primary Care Unavailable GARCÍA, ROEL E Referring Unavailable GARCÍA, ROEL E Attending Unavailable [facility] Primary Care Unavailable GARCÍA, ROEL E Referring Unavailable GARCÍA, ROEL E Attending Unavailable [facility] Primary Care Unavailable GARCÍA, ROEL E Referring Unavailable GARCÍA, ROEL E Attending Unavailable [facility] Primary Care Unavailable GARCÍA, ROEL E Referring Unavailable AN, LEONILA E Attending Unavailable BADER, GILBERT Referring Unavailable [facility] Primary Care Unavailable BADER, GILBERT Attending Unavailable BADER, GILBERT Referring Unavailable BADER, GILBERT Attending Unavailable [facility] Primary Care Unavailable BADER, GILBERT Referring Unavailable BADER, GILBERT Attending Unavailable [facility] Primary Care Unavailable BADER, GILBERT Attending Unavailable [facility] Primary Care Unavailable [facility] Referring Unavailable BADER, GILBERT Attending Unavailable [facility] Primary Care Unavailable [facility] Referring Unavailable BADER, GILBERT Referring Unavailable BADER, GILBERT Attending Unavailable [facility] Primary Care Unavailable [facility] Primary Care Unavailable WAYNE LÓPEZ Attending Unavailable [facility], EMPERATRIZ Referring Unavailable BADER, GILBERT Attending Unavailable [facility] Primary Care Unavailable MIEDEL, EMPERATRIZ Referring Unavailable BADER, GILBERT Referring Unavailable BADER, GILBERT Attending [facility]available [facility] Primary Care Unavailable BADER, GILBERT Attending Unavailable [facility] Primary Care Unavailable MIEDEL, EMPERATRIZ Referring Unavailable BADER, GILBERT Attending Unavailable [facility], BYRON Primary Care Unavailable MIEDEL, EMPERATRIZ Referring Unavailable BADER, GILBERT Referring Unavailable BADER, GILBERT Attending Unavailable MIED, BYRON Primary Care Unavailable BADER, GILBERT Referring Unavailable BADER, GILBERT [facility] Primary Care Unavailable BADER, GILBERT Referring Unavailable BADER, GILBERT Attending Unavailable [facility] Primary Care Unavailable [facility], [place] Primary Care Unavailable WAYNE LÓPEZ Attending Unavailable MIED, EMPERATRIZ Referring Unavailable BADER, GILBERT Attending Unavailable BADER, GILBERT Referring Unavailable [facility] Primary Care Unavailable BADER, GILBERT Attending Unavailable [facility] Primary Care Unavailable [facility], EMPERATRIZ Referring Unavailable [facility], [place] Attending Unavailable [facility] Primary Care Unavailable WIED, EMPERATRIZ Referring Unavailable WAYNE LÓPEZ Attending Unavailable [facility] Primary Care Unavailable VERN CORONA Referring Unavailable BADER, GILBERT Referring Unavailable BADER, GILBERT Attending Unavailable [facility] Primary Care Unavailable [facility], [place] Primary Care Unavailable YENNY MORALES Attending Unavailable SELF, SELF Referring Unavailable SELF, SELF Referring Unavailable ANDRAOS, TAISHA ASIF Y Attending Unava ilable [facility], [place] Primary Care Unavailable ROEL GARCÍA Referring Unavailable ROEL GARCÍA Attending Unavailable [facility] Primary Care Unavailable BANNERCHIARA Referring Unavailable [facility], [place] Primary Care Unavailable CHIARA MATA Attending Unavailable ROEL GARCÍA E Referring Unavailable ROEL GARCÍA Attending Unavailable [facility] Primary Care Unavailable LEONILA AN Attending Unavailable [facility] Referring Unavailable [facility] Primary Care Unavailable BADER, GILBERT Referring Unavailable [facility] Primary Care Unavailable BADER, GILBERT Attending Unavailable BADER, GILBERT Referring Unavailable RADHA ROBERTS Attending Unavailable [facility] Primary Care Unavailable DAGO RIVERA Referring Unavailable KING MINA Attending Unavailable [facility] Primary Care Unavailable BADER, GILBERT Referring Unavailable BADER, GILBERT Attending Unavailable [facility] Primary Care Unavailable BADER, GILBERT Referring Unavailable BADER, GILBERT Attending Unavailable [facility] Primary Care Unavailable BADER, GILBERT Referring Unavailable BADER, GILBERT Attending Unavailable [facility] Primary Care Unavailable AN, LEONILA E Attending Unavailable [facility] Referring Unavailable [facility] Primary Care Unavailable BADER, GILBERT Referring Unavailable BADER, GILBERT Attending Unavailable [facility] Primary Care Unavailable BADER, GILBERT Referring Unavailable BADER, GILBERT Attending Unavailable [facility] Primary Care Unavailable THERESA MARROQUIN Attending Unavailable [facility] Referring Unavailable [facility] Primary Care Unavailable WAYNE LÓPEZ Attending Unavailable [facility] Referring Unavailable [facility] Primary Care Unavailable BADER, GILBERT Referring Unavailable BADER, GILBERT Attending Unavailable [facility] Care Unavailable AN, LEONILA E Attending Unavailable [facility] Primary Care Unavailable AN, LEONILA E Referring Unavailable AN, LEONILA E Attending Unavailable AN, LEONILA E Referring Unavailable [facility] Primary Care Unavailable AN, LEONILA E Attending Unavailable [facility] Primary Care Unavailable AN, LEONILA E Referring Unavailable AN, LEONILA E Attending Unavailable [facility] Primary Care Unavailable ROBOTJACQUE, RACHEL Referring Unavailable GARCÍA, ROEL E Referring Unavailable GARCÍA, ROEL E Attending Unavailable [facility] Primary Care Unavailable GARCÍA, ROEL E Referring Unavailable GARCÍA, ROEL E Attending Unavailable BADER, GILBERT Attending Unavailable BADER, GILBERT Referring Unavailable [facility] Primary Care Unavailable BADER, GILBERT Referring Unavailable BADER, GILBERT Attending Unavailable [facility], EMP[facility] Primary Care Unavailable BADER, GILBERT Referring Unavailable BADER, GILBERT Attending Unavailable MIEDEL, EMPERATRIZ Primary Care Unavailable BADER, GILBERT Referring Unavailable BADER, GILBERT Attending Unavailable MIEDEL, EMPERATRIZ Primary Care Unavailable ERIC CAMPOS Referring Unavailable MIEDEL, EMPERATRIZ Primary Care Unavailable CAMPOSERIC Attending Unavailable CAMPOSERIC Attending Unavailable MIEDEL, EMPERATRIZ Primary Care Unavailable ROEL GARCÍA Referring Unavailable MIEDEL, EMPERATRIZ Primary Care Unavailable MIEDEL, EMPERATRIZ Primary Care Unavailable BADER, GILBERT Attending Unavailable MIEDEL, EMPERATRIZ Referring Unavailable ANTATIANNAIN E Attending Unavailable WIEDEL, EMPERATRIZ Referring Unavailable MIEDEL, EMPERATRIZ Primary Care Unavailable MIEDEL, EMPERATRIZ Referring Unavailable MIEDEL, EMPERATRIZ Primary Care Unavailable AN LEONILA E Attending Unavailable AN, LEONILA E Admitting Unavailable AN LEONILA E Attending Unavailable WIEDEL, EMPERATRIZ Referring Unavailable AN, LEONILA E Admitting Unavailable MIEDEL, EMPERATRIZ Primary Care Unavailable RADHA ROBERTS Attending Provider RADHA ROBERTS Referring Provider Paedel, Emperatriz Primary Care Unavailable Miedel, Emperatriz Referring Unavailable Rachel Vaz Attending Unavailable Thomas Hanson Attending Unavailable [facility], Emperatriz Primary Care Unavailable Miedel, Emperatriz Referring Unavailable Thomas Hanson Referring Unavailable Miedel, Emperatriz Primary Care Unavailable Thomas Hanson Attending Unavailable Thomas Hanson Attending Unavailable Thomas Hanson Referring Unavailable Miedel, Emperatriz Primary Care Unavailable Thomas Hanson Attending Unavailable Miedel, Emperatriz Primary Care Unavailable Thomas Hanson Referring Unavailable Miedel, Emperatriz Primary Care Unavailable JUAN M LOYA Referring Unavailable JUAN M LOYA Attending Unavailable Miedel, Emperatriz Primary Care Unavailable Miedel, Emperatriz Referring Unavailable Miedel, Emperatriz Attending Unavailable Miedel, Emperatriz Primary Care Unavailable Miedel, Emperatriz Referring Unavailable Miedel, Emperatriz Attending Unavailable Thomas Hanson Attending Unavailable Leopoldo Hansone Referring Unavailable Miedel, Emperatriz Primary Care Unavailable [place], [place] Primary Care Unavailable Leti Nava Attending Unavailable Leti Nava Referring Unavailable [place], [place] Primary Care Unavailable JUAN M LOYA Referring Unavailable JUAN M LOYA Attending Unavailable Thomas Hanson Attending Unavailable Valentin, Thomas Referring Unavailable Miedel, [place] Primary Care Unavailable Valentin, Thomas Attending Unavailable Valentin, Thomas Referring Unavailable Miedel, [place] Primary Care Unavailable Thomas Hanson Attending Unavailable Valentin, Thomas Referring Unavailable [place], [place] Primary Care Unavailable Thomas Hanson Attending Unavailable [place], [place] Primary Care Unavailable Miedel, Emperatriz Referring Unavailable Thomas Hanson Attending Unavailable Miedel, [place] Primary Care Unavailable Valentin, Thomas Referring Unavailable Valentin, Thomas Attending Unavailable Valentin, Thomas Referring Unavailable Miedel, [place] Primary Care Unavailable Valentin, Thomas Referring Unavailable Thomas Hanson Attending Unavailable [place], [place] Primary Care Unavailable Valentin, Thomas Referring Unavailable [place], [place] Primary Care Unavailable Thomas Hanson Attending Unavailable [place], [place] Primary Care Unavailable Mied, Emperatriz Referring Unavailable Rachel Vaz Attending Unavailable Thomas Hanson Attending Unavailable Valentin, Thomas Referring Unavailable [place], [place] Primary Care Unavailable Valentin, Thomas Referring Unavailable Miedel, [place] Primary Care Unavailable Thomas Hanson Attending Unavailable Allergies Allergy Classification Reported Allergen(s) Allergy Type Date of Onset Reaction(s) Facility (20 sources) [facility] Allergy 2 Other: See Bina, Hives [facility] (20 sources) Silver Propensity to adverse reactions to drug 4 [facility] (1 source) [facility] Drug Allergy 5 [facility] Repository Medications Current Medications Medication Drug Class(es) Dates Sig (Normalized) Sig (Original) abemaciclib 100 mg oral tablet (5 sources) Start: 12-02-2024 take 1 tablet by mouth twice daily Abemaciclib (Verzenio) 100 mg tablet Active 100 mg PO TWICE A DAY December 02, 2024 12:00am Start: 11-13-2024 End: 12-13-2024 take 1 tablet by mouth twice daily abemaciclib (Verzenio) 150 MG tablet Indications: Malignant neoplasm of overlapping sites of right breast in female, estrogen receptor positive Take 1 tablet by mouth 2 times daily. Swallow tablets whole; do not crush, chew, or split. Start cycle 1 on 11/15/24 56 tablet 11/13/2024 12/13/2024 Discontinued (Duplicate (suppress cancel msg)) acetaminophen 325 mg oral ta blet (20 sources) Start: 12-13-2024 975 mg, Oral, ONCE (OUTPT CLINIC), 1 dose, Starting on Mon12/13/24 at 1204, Until Mon12/13/24 at 1225, Administer prior to zoledronic acid infusion. It is not necessary to wait 30 minutes between premedication and infusion. Maximum dose of acetaminophen is 4000 mg from all sources in 24 hours. Start: 11-26-2024 End: 11-26-2024 take 1 tablet by mouth every six hours as needed 650 mg, Oral, EVERY 6 HOURS NEEDED, Starting on Mon11/26/24 at 1142, Until Mon11/26/24 at 1428, Mild Pain, Maximum dose of acetaminophen is 4000 mg from all sources in 24 hours., Post-op/Post-Proc Start: 08-15-2024 take 2 tablets by mo [facility] every six hours as needed Acetaminophen 325 mg tablet Active 650 mg PO EVERY 6 HOURS as needed August 15, 2024 1:00am Start: 08-09-2024 End: 08-09-2024 take 1 tablet by mouth every eight hours 975 mg, Oral, EVERY 8 HOURS NON-STANDARD, First dose on Mon08/09/24 at 1415, Until Discontinued, Administer each dose four hours after dose of ibuprofen., Post-op/Post-Proc Start: 08-09-2024 End: 08-09-2024 take 1 tablet by mouth every six hours as needed 650 mg, Oral, EVERY 6 HOURS NEEDED, Starting on Mon08/09/24 at 1241, Until Mon08/09/24 at 1746, Mild Pain, Contact anesthesiologist prior to administration if patient received acetaminophen perioperatively., Recovery Start: 08-09-2024 End: 08-09-2024 take 4000 mg by mouth every twenty-four hours 975 mg, Oral, ONCE, 1 dose, On Mon08/09/24 at 0830, Maximum dose of acetaminophen is 4000 mg from all sources in 24 hours., Pre-op/Pre-Proc Start: 05-03-2024 take 1 dose by mouth once 650 mg, Oral, ONCE (OUTPT CLINIC), 1 dose, Starting on Mon05/03/24 at 1015, Until Mon05/03/24 at 1017, Premedicate 30 minutes before agent. Start: 02-16-2024 End: 08-16-2024 take 3 tablets by mouth every eight hours in the evening Acetaminophen 325 MG tablet Take 3 tablets by mouth every 8 hours for 7 days. 63 tablet 08/09/2024 1:51 PM EST 08/09/2024 Active Start: 02-16-2024 End: 02-16-2024 take 1 tablet by mouth every eight hours 975 mg, Oral, EVERY 8 HOURS NON-STANDARD, First dose on Mon02/16/24 at 1045, Until Discontinued, Administer each dose four hours after dose of ibuprofen., Post-op/Post-Proc Start: 02-16-2024 End: 02-16-2024 take 4000 mg by mouth every twenty-four hours 975 mg, Oral, ONCE, 1 dose, On Mon02/16/24 at 0700, Maximum dose of acetaminophen is 4000 mg from all sources in 24 hours., Pre-op/Pre-Proc anastrozole 1 mg oral tablet (9 sources) Aromatase Inhibitor Start: 11-08-2024 take 1 tablet by mouth once daily Anastrozole 1 mg tablet Active 1 mg PO daily December 02, 2024 12:00am B Complex Vitamins (VITAMIN B COMPLEX PO) (20 sources) take 1 tablet by mouth once daily B Complex Vitamins (VITAMIN B COMPLEX PO) Take 1 tablet by mouth daily. Suspended take 1 tablet by mouth once edmond y B Complex Vitamins (VITAMIN B COMPLEX PO) Take 1 tablet by mouth daily. Active ergocalciferol 1.25 mg oral capsule (20 sources) Provitamin D2 Compound Start: 08-15-2024 take 1 capsule by mouth every other week Ergocalciferol (Vitamin D2) 1,250 mcg (50,000 unit) capsule Active 1 U PO .q other week August 15, 2024 10:43am Start: 09-09-2021 End: 08-15-2024 take 1 capsule by mouth once daily Ergocalciferol (Vitamin D2) 1,250 mcg (50,000 unit) capsule Discontinued 1 U PO DAILY September 09, 2021 1:00am August 15, 2024 10:46am gabapentin 300 mg oral capsule (20 sources) Anti-epileptic Agent Start: 06-28-2024 End: 03-18-2025 take 1 capsule by mouth three times daily Gabapentin 300 mg capsule Active 300 mg PO THREE TIMES A DAY August 15, 2024 1:00am hydroCHLOROthiazide 25 mg oral tablet (20 sources) Thiazide Diuretic Start: 09-09-2021 take 1 tablet by mouth once daily Hydrochlorothiazide 25 mg tablet Active 25 mg PO DAILY September 09, 2021 1:00am ibuprofen 400 mg oral tablet (20 sources) Nonsteroidal Anti-inflammatory Drug Start: 08-09-2024 End: 08-16-2024 take 1 tablet by mouth every six hours Ibuprofen 600 MG tablet Take 1 tablet by mouth every 6 hours for 7 days. 28 tablet 08/09/2024 08/16/2024 Active Start: 08-09-2024 End: 08-09-2024 take 1 tablet by mouth every eight hours 600 mg, Oral, EVERY 8 HOURS NON-STANDARD, First dose on Mon08/09/24 at 1415, Until Discontinued, Administer each dose four hours after dose of acetaminophen., Post-op/Post-Proc Start: 02-16-2024 take 1 tablet by janice th every eight hours as needed Ibuprofen 400 mg tablet Active 400 mg PO Q8H as needed August 15, 2024 1:00am Start: 02-16-2024 End: 02-16-2024 take 1 tablet by mouth every eight hours 600 mg, Oral, EVERY 8 HOURS NON-STANDARD, First dose on Mon02/16/24 at 1045, Until Discontinued, Administer each dose four hours after dose of acetaminophen., Post-op/Post-Proc levothyroxine sodium 0.05 mg oral tablet (20 sources) l-Thyroxine Start: 09-09-2021 Levothyroxine 50 mcg tablet Active 1 NMA PO DAILY September 09, 2021 1:00am Start: 09-09-2021 take 1 tablet by janice th once daily Levothyroxine Active 1 TAB PO DAILY September 09, 2021 1:00am lidocaine 25 mg/ml / prilocaine 25 mg/ml topical cream (20 sources) Antiarrhythmic, Amide Local Anesthetic Start: 08-15-2024 Lidocaine-Prilocaine 2.5-2.5 % cream Active 1 NMA TOPICAL daily as needed August 15, 2024 1:00am Start: 02-15-2024 End: 07-05-2024 Lidocaine-prilocaine 2.5-2.5 % cream Apply 1 Application topically As directed. Apply thick layer 30-60 minutes before needle stick, then cover area 30 g 3 07/05/2024 Active lisinopril 10 mg oral tablet (9 sources) Angiotensin Converting Enzyme Inhibitor Start: 12-02-2024 take 1 tablet by mouth once daily Lisinopril 10 mg tablet Active 10 mg PO daily December 02, 2024 12:00am loperamide hydrochloride 2 mg oral capsule (7 sources) Opioid Agonist Start: 11-08-2024 take 1 capsule by mouth every six hours as needed Loperamide 2 mg capsule Active 2 mg PO EVERY 6 HOURS as needed December 02, 2024 12:00am loratadine 10 mg oral tablet (17 sources) Start: 08-15-2024 take 1 tablet by mouth once daily Loratadine 10 mg tablet Active 10 mg PO daily August 15, 2024 1:00am Magnesium (10 sources) Start: 10-13-2021 take 200 mg by mouth once daily Magnesium Active 200 MG PO DAILY October 13, 2021 1:19pm Start: 10-13-2021 End: 08-15-2024 take 1 tablet by mouth once daily Magnesium 200 mg Tablet Discontinued 200 mg PO DAILY October 13, 2021 12:00am August 15, 2024 10:37am Start: 10-13-2021 take 200 mg by mouth once edmond y Magnesium Active 200 MG PO DAILY October 12, 2021 11:00pm Start: 10-13-2021 take 200 mg by mouth once edmond y Magnesium Active 200 MG PO DAILY October 13, 2021 12:00am magnesium oxide 400 mg oral tablet (20 sources) Start: 08-15-2024 take 1 tablet by mouth once daily Magnesium Oxide 400 mg (241.3 mg magnesium) tablet Active 400 mg PO daily August 15, 2024 1:00am [id number]-Fish Oil-Vit D3 [phone] gz-ie-kn-unit capsule (3 sources) Start: 08-15-2024 Vq-4-[id number]-Epa-F adelita Oil-Vit D3 [phone] lg-zu-te-unit capsule Active 1 NMA PO daily August 15, 2024 1:00am [place]-3 Fatty Acids (OMEGA 3 PO) (20 sources) take 650 mg by mouth once daily [place]-3 Fatty Acids (OMEGA 3 PO) Take 650 mg by mouth daily. Suspended take 650 mg by mouth once daily [place]-3 Fatty Acids (OMEGA 3 PO) Take 650 mg by mouth daily. Active silver sulfADIAZINE 10 mg/ml topical cream (2 sources) Sulfonamide Antibacterial Start: 10-31-2024 Silver Sulfadiazine (Silvadene) 1 % cream Active 1 NMA TOPICAL TWICE A DAY October 31, 2024 12:00am apply a 1.5 mm thickness Tirzepatide (Weight Loss) (2 sources) Start: 12-02-2024 Tirzepatide (Weight Loss) (Zepbound) 2.5 mg/0.5 mL pen injector Active 2.5 mg SC EVERY WEEK December 02, 2024 12:00am for 4 weeks Tirzepatide-Weight Management (Zepbound) 2.5 MG/0.5ML Solution Auto-injector (1 source) inject 2.5 mg by subcutaneous injection every week Tirzepatide-Weigh t Management (Zepbound) 2.5 MG/0.5ML Solution Auto-injector Inject 2.5 mg under the skin once a week. Active Turmeric extract (20 sources) Start: 10-13-2021 take 400 mg by mouth once daily Turmeric Active 400 MG PO DAILY October 13, 2021 1:19pm Start: 10-13-2021 End: 08-15-2024 take 1 capsule by mouth once daily Turmeric 400 mg Capsule Discontinued 400 mg PO DAILY October 13, 2021 12:00am August 15, 2024 10:39am Start: 10-13-2021 take 400 mg by mouth once edmond y Turmeric Active 400 MG PO DAILY October 12, 2021 11:00pm Start: 10-13-2021 take 400 mg by mouth once edmond y Turmeric Active 400 MG PO DAILY October 13, 2021 12:00am End: 02-15-2024 take 1 tablet by mouth once daily Turmeric (QC TUMERIC COMPLEX PO) Take 1 tablet by mouth daily. 02/15/2024 Discontinued take 1 tablet by janice th once daily Turmeric (QC TUMERIC COMPLEX PO) Take 1 tablet by mouth daily. Active Vit C-Zn Gluc-Herbal No.325 (Elderberry Zinc Vit C) 90-15 mg Lozenge (10 sources) Start: 10-13-2021 Vit C-Zn Gluc- Herbal No.325 (Elderberry Zinc Vit C) 90-15 mg Lozenge Active 1 LOZENGE PO DAILY October 13, 2021 1:19pm Start: 10-13-2021 End: 08-15-2024 Vit C-Zn Gluc-Herbal No.325 (Elderberry Zinc Vit C) 90-15 mg Lozenge Discontinued 1 NMA PO DAILY October 13, 2021 12:00am August 15, 2024 10:39am Start: 10-13-2021 Vit C-Zn Gluc- Herbal No.325 (Elderberry Zinc Vit C) 90-15 mg Lozenge Active 1 LOZENGE PO DAILY October 12, 2021 11:00pm Start: 10-13-2021 Vit C-Zn Gluc- Herbal No.325 (Elderberry Zinc Vit C) 90-15 mg Lozenge Active 1 LOZENGE PO DAILY October 13, 2021 12:00am Vitamin B Complex capsule (3 sources) Start: 08-15-2024 Vitamin B Comp albaro capsule Active 1 NMA PO daily August 15, 2024 1:00am vitamin e 180 mg oral capsul e (20 sources) Start: 08-15-2024 Vitamin E (Dl, Acetate) 180 mg (400 unit) capsule Active 360 mg PO daily August 15, 2024 1:00am take 2 capsules by mouth once da ilia vitamin E 400 units capsule Take 2 capsules by mouth daily. Active zolpidem tartrate 5 mg oral tablet (20 sources) gamma-Aminobutyric Acid-ergic Agonist Start: 08-15-2024 Zolpidem 5 mg tablet Active 5 mg PO AT BEDTIME August 15, 2024 1:00am may repeat once if no response in 30-60 minutes End: 01-13-2025 take 1 tablet by mouth at bedtime as needed for sleep Zolpidem (Ambien) 5 MG tablet Take 1 tablet by mouth At bedtime as needed for Sleep. 07/15/2024 Discontinued Completed/Discontinued Medications Medication Drug Class(es) Dates Sig (Normalized) Sig (Original) 18 ml aprepitant 7.2 mg/ml injection (4 sources) Substance P/Neurokinin-1 Receptor Antagonist Start: 04-05-2024 End: 04-05-2024 130 mg, Intravenous, Administer over 2 Minutes, ONCE (OUTPT CLINIC), 1 dose, Starting on Mon04/05/24 at 1127, Until Mon04/05/24 at 1143, Premedicate 30 minutes prior to chemotherapy. Give as slow IV push over at least 2 minutes. Start: 03-22-2024 End: 03-22-2024 130 mg, Intravenous, Adminis ter over 2 Minutes, ONCE (OUTPT CLINIC), 1 dose, Starting on Mon03/22/24 at 1002, Until Mon03/22/24 at 1117, Premedicate 30 minutes prior to chemotherapy. Give as slow IV push over at least 2 minutes. Start: 03-08-2024 End: 03-08-2024 130 mg, Intravenous, Adminis ter over 2 Minutes, ONCE (OUTPT CLINIC), 1 dose, Starting on Mon03/08/24 at 1115, Until Mon03/08/24 at 1143, Premedicate 30 minutes prior to chemotherapy. Give as slow IV push over at least 2 minutes. Start: 02-23-2024 End: 02-23-2024 130 mg, Intravenous, Adminis ter over 2 Minutes, ONCE (OUTPT CLINIC), 1 dose, Starting on Mon02/23/24 at 1058, Until Mon02/23/24 at 1113, Premedicate 30 minutes prior to chemotherapy. Give as slow IV push over at least 2 minutes. ASHWAGANDHA PO (14 sources) End: 02-15-2024 take 1 tablet by mouth once daily ASHWAGANDHA PO Take 1 tablet by mouth daily. 02/15/2024 Discontinued take 1 tablet by mouth once edmond y ASHWAGANDHA PO Take 1 tablet by mouth daily. Active Biotin (10 sources) Start: 10-13-2021 End: 08-15-2024 take 1 mg by mouth once daily Biotin 500 mcg Capsule Discontinued 1 mg PO DAILY October 13, 2021 12:00am August 15, 2024 10:39am Start: 10-13-2021 take 1 mg by mouth once daily Biotin Active 1 MG PO DAILY October 13, 2021 12:00am calcium chloride 0.0014 meq/ ml / potassium chloride 0.004 meq/ml / sodium chloride 0.103 meq/ml / sodium lactate 0.028 meq/ml injectable solution (2 sources) Start: 08-09-2024 End: 08-09-2024 Intravenous, at 20 mL/hr, CONTINUOUS, Starting on Mon08/09/24 at 0915, Until Mon08/09/24 at 1746 Start: 08-09-2024 End: 08-09-2024 1 dose, Starting on Mon at 0816, Until Mon08/09/24 at 0910, Created by cabinet override cetirizine hydrochloride 10 mg oral tablet (3 sources) Histamine-1 Receptor Antagonist Start: 05-03-2024 End: 05-03-2024 take 1 dose by mouth once 10 mg, Oral, ONCE (OUTPT CLINIC), 1 dose, Starting on Mon05/03/24 at 0835, Until Mon05/03/24 at 0931, Premedicate 30 minutes before chemotherapy. Start: 04-26-2024 End: 04-26-2024 take 1 dose by mouth once 10 mg, Oral, ONCE (OUTPT CLI MARYJO), 1 dose, Starting on Mon04/26/24 at 0831, Until Mon04/26/24 at 0920, Premedicate 30 minutes before chemotherapy. Start: 04-19-2024 End: 04-19-2024 take 1 dose by mouth once 10 mg, Oral, ONCE (OUTPT CLI MARYJO), 1 dose, Starting on Mon04/19/24 at 1112, Until Mon04/19/24 at 1131, Premedicate 30 minutes before chemotherapy. cholecalciferol 0.05 mg oral capsule (10 sources) Vitamin D Start: 10-13-2021 End: 01-19-2024 take 1 capsule by mouth once daily Cholecalciferol (Vitamin D3) (Vitamin D3) 50 mcg (2,000 unit) Capsule Discontinued 50 ug PO DAILY October 13, 2021 12:00am January 19, 2024 10:27am Cyclophosphamide (13 sources) Alkylating Drug End: 04-19-2024 CYCLOPHOSPHAMIDE IV by Intravenous route. 04/19/2024 Discontinued CYCLOPHOSPHAMIDE IV by Intravenous route. Active cycloPHOSphamide (CYTOXAN) 1 ,220 mg in Sodium chloride 0.9%, with overfill, tubing 350 mL (total volume) chemo infusion (4 sources) Start: 04-05-2024 End: 04-05-2024 1,220 mg (rounded from 1,224 mg = 600 mg/m2 2.04 m2 Treatment Plan BSA from Recorded weight), Intravenous, at 700 mL/hr, Administer over 30 Minutes, ONCE (OUTPT CLINIC), 1 dose, Starting on Mon04/05/24 at 1129, Until Mon04/05/24 at 1306 Start: 03-22-2024 End: 03-22-2024 1,220 mg (rounded from 1,224 mg = 600 mg/m2 2.04 m2 Treatment Plan BSA from Recorded weight), Intravenous, at 700 mL/hr, Administer over 30 Minutes, ONCE (OUTPT CLINIC), 1 dose, Starting on Mon03/22/24 at 1004, Until Mon03/22/24 at 1251 Start: 03-08-2024 End: 03-08-2024 1,220 mg (rounded from 1,224 mg = 600 mg/m2 2.04 m2 Treatment Plan BSA from Recorded weight), Intravenous, at 700 mL/hr, Administer over 30 Minutes, ONCE (OUTPT CLINIC), 1 dose, Starting on Mon03/08/24 at 1118, Until Mon03/08/24 at 1330 Start: 02-23-2024 End: 02-23-2024 1,220 mg (rounded from 1,224 mg = 600 mg/m2 2.04 m2 Treatment Plan BSA from Recorded weight), Intravenous, at 700 mL/hr, Administer over 30 Minutes, ONCE (OUTPT CLINIC), 1 dose, Starting on Mon02/23/24 at 1101, Until Mon02/23/24 at 1235 dexamethasone 4 mg oral tablet (8 sources) Corticosteroid Start: 12-13-2024 End: 12-13-2024 8 mg, Oral, ONCE (OUTPT CLINIC), 1 dose, Starting on Mon12/13/24 at 1204, Until Mon12/13/24 at 1225, Administer prior to zoledronic acid infusion. It is not necessary to wait 30 minutes between premedication and infusion. Start: 05-03-2024 End: 05-03-2024 20 mg, Intravenous, ONCE ( TPT CLINIC), 1 dose, Starting on Mon05/03/24 at 0835, Until Mon05/03/24 at 0931, Premedicate 30 minutes before chemotherapy. Light Sensitive. Start: 04-26-2024 End: 04-26-2024 20 mg, Intravenous, ONCE ( TPT CLINIC), 1 dose, Starting on Mon04/26/24 at 0831, Until Mon04/26/24 at 0921, Premedicate 30 minutes before chemotherapy. Light Sensitive. Start: 04-19-2024 End: 04-19-2024 20 mg, Intravenous, ONCE ( TPT CLINIC), 1 dose, Starting on Mon04/19/24 at 1112, Until Mon04/19/24 at 1133, Premedicate 30 minutes before chemotherapy. Light Sensitive. Start: 04-05-2024 End: 04-05-2024 12 mg, Oral, ONCE (OUTPT CLI MARYJO), 1 dose, Starting on Mon04/05/24 at 1127, Until Mon04/05/24 at 1137, Give 30 minutes prior to chemotherapy. Start: 03-22-2024 End: 03-22-2024 12 mg, Oral, ONCE (OUTPT CLI MARYJO), 1 dose, Starting on Mon03/22/24 at 1002, Until Mon03/22/24 at 1113, Give 30 minutes prior to chemotherapy. Start: 03-08-2024 End: 03-08-2024 12 mg, Oral, ONCE (OUTPT CLI MARYJO), 1 dose, Starting on Mon03/08/24 at 1115, Until Mon03/08/24 at 1137, Give 30 minutes prior to chemotherapy. Start: 02-23-2024 End: 02-23-2024 12 mg, Oral, ONCE (OUTPT CLI MARYJO), 1 dose, Starting on Mon02/23/24 at 1058, Until Mon02/23/24 at 1108, Give 30 minutes prior to chemotherapy. 1 ml diphenhydrAMINE hydrochloride 50 mg/ml cartridge (1 source) Histamine-1 Receptor Antagonist Start: 08-09-2024 End: 08-09-2024 12.5 mg, Intravenous, EVERY 30 MINUTES NEEDED, 2 doses, Starting on Mon08/09/24 at 1241, Until Mon08/09/24 at 1746, Itching, Use second dose only if first dose did not result in confusion . Do not give if age is > 65yo, Recovery 25 ml DOXOrubicin hydrochloride 2 mg/ml injection (17 sources) Anthracycline Topoisomerase Inhibitor Start: 04-05-2024 End: 04-05-2024 122 mg (rounded from 122.4 mg = 60 mg/m2 2.04 m2 Treatment Plan BSA from Recorded weight), Intravenous, ONCE (OUTPT CLINIC), 1 dose, Starting on Mon04/05/24 at 1129, Until Mon04/05/24 at 1233, Administer doxorubicin IVP through a free-flowing IV checking for blood return every 2 to 5 mLs. Administer each syringe over 3 to 10 minutes, administration time may vary based on venous access. Follow vesicant precautions. For suspected extravasation, call MD and initiate either COLD + DSMO or COLD + Dexrazoxane plan. Start: 03-22-2024 End: 03-22-2024 122 mg (rounded from 122.4 m g = 60 mg/m2 2.04 m2 Treatment Plan BSA from Recorded weight), Intravenous, ONCE (OUTPT CLINIC), 1 dose, Starting on Mon03/22/24 at 1004, Until Mon03/22/24 at 1210, Administer doxorubicin IVP through a free-flowing IV checking for blood return every 2 to 5 mLs. Administer each syringe over 3 to 10 minutes, administration time may vary based on venous access. Follow vesicant precautions. For suspected extravasation, call MD and initiate either COLD + DSMO or COLD + Dexrazoxane plan. Start: 03-08-2024 End: 03-08-2024 122 mg (rounded from 122.4 m g = 60 mg/m2 2.04 m2 Treatment Plan BSA from Recorded weight), Intravenous, ONCE (OUTPT CLINIC), 1 dose, Starting on Mon03/08/24 at 1118, Until Mon03/08/24 at 1258, Administer doxorubicin IVP through a free-flowing IV checking for blood return every 2 to 5 mLs. Administer each syringe over 3 to 10 minutes, administration time may vary based on venous access. Follow vesicant precautions. For suspected extravasation, call MD and initiate either COLD + DSMO or COLD + Dexrazoxane plan. Start: 02-23-2024 End: 02-23-2024 122 mg (rounded from 122.4 m g = 60 mg/m2 2.04 m2 Treatment Plan BSA from Recorded weight), Intravenous, ONCE (OUTPT CLINIC), 1 dose, Starting on Mon02/23/24 at 1101, Until Mon02/23/24 at 1200, Administer doxorubicin IVP through a free-flowing IV checking for blood return every 2 to 5 mLs. Administer each syringe over 3 to 10 minutes, administration time may vary based on venous access. Follow vesicant precautions. For suspected extravasation, call MD and initiate either COLD + DSMO or COLD + Dexrazoxane plan. End: 04-19-2024 DOXORUBICIN HCL IV by Intrav enous route. 04/19/2024 Discontinued DOXORUBICIN HCL IV by Intravenous route. Active 2 ml famotidine 10 mg/ml injection (3 sources) Histamine-2 Receptor Antagonist Start: 05-03-2024 End: 05-03-2024 20 mg, Intravenous, ONCE (OUTPT CLINIC), 1 dose, Starting on Mon05/03/24 at 0835, Until Mon05/03/24 at 0929, Premedicate 30 minutes before chemotherapy. Start: 04-26-2024 End: 04-26-2024 20 mg, Intravenous, ONCE (OU TPT CLINIC), 1 dose, Starting on Mon04/26/24 at 0831, Until Mon04/26/24 at 0920, Premedicate 30 minutes before chemotherapy. Start: 04-19-2024 End: 04-19-2024 20 mg, Intravenous, ONCE (OU TPT CLINIC), 1 dose, Starting on Mon04/19/24 at 1112, Until Mon04/19/24 at 1131, Premedicate 30 minutes before chemotherapy. 2 ml fentaNYL 0.05 mg/ml injection (3 sources) Opioid Agonist Start: 11-26-2024 End: 11-26-2024 0-300 mcg, Intravenous, Administer over 2 Minutes, ADMINISTER DIRECTED, Starting on Tu11/26/24 at 1059, Until Mon11/26/24 at 1428, intraoperative pain management, Administer during procedure as directed by physician. Recorded MAR dose is cumulative amount given during procedure., Intra-op/Intra-Proc Start: 08-09-2024 End: 08-09-2024 50 mcg, Intravenous, Adminis ter over 2 Minutes, EVERY 10 MINUTES NEEDED, 4 doses, Starting on Mon08/09/24 at 1241, Until Mon08/09/24 at 1746, Severe Pain, Recovery Start: 02-16-2024 End: 02-16-2024 25 mcg, Intravenous, Adminis ter over 2 Minutes, EVERY 5 MINUTES NEEDED, 6 doses, Starting on Mon02/16/24 at 0956, Until Mon02/16/24 at 1328, Severe Pain, Moderate Pain, Additional dose may be administered only if first dose did not result in adverse effects (RR flumazenil 0.1 mg/ml injectable solution (1 source) Benzodiazepine Antagonist Start: 11-26-2024 End: 11-26-2024 0.2 mg, Intravenous, SEE ADMIN INSTRUCTIONS, Starting on Mon11/26/24 at 1059, Until Mon11/26/24 at 1428, Vial to bedside in procedure room. Administer ONLY UNDER THE DIRECTION OF PHYSICIAN. Reversal of Conscious Sedation Initial dose: 0.2 mg Repeat doses: 0.2 mg repeated at one-minute intervals Maximum total cumulative dose: 1mg, Intra-op/Intra-Proc Gadopiclenol SOLN 1-25 mL (3 sources) Start: 07-11-2024 End: 07-11-2024 1-25 mL, Intravenous, ONCE, 1 dose, On Gregoria 07/11/24 at 1330 Start: 02-25-2024 End: 02-25-2024 1-25 mL, Intravenous, ONCE, 1 dose, On Mon02/25/24 at 1145 Start: 02-21-2024 End: 02-21-2024 1-25 mL, Intravenous, ONCE, 1 dose, On Mon02/21/24 at 1630 500 ml glucose 50 mg/ml / potassium chloride 0.02 meq/ml / sodium chloride 4.5 mg/ml injection (1 source) Start: 08-09-2024 End: 08-09-2024 Intravenous, at 125 mL/hr, CONTINUOUS, Starting on Mon08/09/24 at 1415, Until Mon08/09/24 at 1746, May convert to saline well when tolerating regular diet or 8 hours after exit from PACU, whichever is first., Post-op/Post-Proc 1 ml haloperidol 5 mg/ml prefilled syringe (2 sources) Typical Antipsychotic Start: 08-09-2024 End: 08-09-2024 take 1 mg intravenously every hour as needed 1 mg, Intravenous, EVERY 1 HOUR NEEDED, 2 doses, Starting on Mon08/09/24 at 1241, Until Mon08/09/24 at 1746, Nausea, SECOND line antiemetic, Recovery Start: 02-16-2024 End: 02-16-2024 1 mg, Intravenous, ONCE N EEDED, 1 dose, Starting on Mon02/16/24 at 0956, Until Mon02/16/24 at 1328, FIRST line Nausea/vomiting,, If patient still experiencing nausea/vomiting after 1st dose use 2nd line antiemetic, Recovery HERBAL PRODUCT (14 sources) End: 02-15-2024 take 1 tablet by mouth once daily HERBAL PRODUCT Take 1 tablet by mouth daily. Magnesium 02/15/2024 Discontinued take 1 tablet by mouth once edmond y HERBAL PRODUCT Take 1 tablet by mouth daily. Magnesium Active take 1 tablet by mouth once edmond y HERBAL PRODUCT Take 1 tablet by mouth daily. Neuro cognitive Active 1 ml hydrALAZINE hydrochloride 20 mg/ml injection (2 sources) Arteriolar Vasodilator Start: 08-09-2024 End: 08-09-2024 5 mg, Intravenous, EVERY 15 MINUTES NEEDED, 4 doses, Starting on Mon08/09/24 at 1241, Until Mon08/09/24 at 1746, SBP > 180 mmHg, SECOND line HTN, For SBP > 180 Use if HR Start: 02-16-2024 End: 02-16-2024 5 mg, Intravenous, EVERY 15 MINUTES NEEDED, 4 doses, Starting on Mon02/16/24 at 0956, Until Mon02/16/24 at 1328, SBP > 160 mmHg with HR 160 Use if HR Iohexol (OMNIPAQUE) 300 MG/ML 50 mL in Water liquid (free water) 950 mL (1 source) Start: 02-13-2024 End: 02-13-2024 take 1 dose by mouth once 15,000 mg, Oral, ONCE, 1 dose, On Mon02/13/24 at 1145, For administration to inpatients, to be given by RN on inpatient nursing unit., CT Procedure iohexol (OMNIPAQUE) 350 MG/ML injection 1-171 mL (1 source) Start: 02-13-2024 End: 02-13-2024 1-171 mL, Intravenous, ONCE, 1 dose, On Mon02/13/24 at 1200, Extravasation Risk, CT Procedure labetalol hydrochloride 5 mg/ml injectable solution (2 sources) beta-Adrenergi c Dexter Start: 08-09-2024 End: 08-09-2024 5 mg, Intravenous, EVERY 15 MINUTES NEEDED, 4 doses, Starting on Mon08/09/24 at 1241, Until Mon08/09/24 at 1746, SBP > 180 mmHg with HR >60 bpm, FIRST line HTN. , For SBP > 180 Hold if HR Start: 02-16-2024 End: 02-16-2024 5 mg, Intravenous, EVERY 15 MINUTES NEEDED, 4 doses, Starting on Mon02/16/24 at 0956, Until Mon02/16/24 at 1328, SBP > 160 mmHg with HR >60 bpm, FIRST line HTN. , For SBP > 160 Hold if HR lidocaine 1% buffered in sod ium bicarbonate 1-8.4 % injection SOSY 1-20 mL (3 sources) Start: 08-08-2024 End: 08-09-2024 1-20 mL, Infiltration, NEEDED, Starting on Mon08/08/24 at 1440, Until Mon08/09/24 at 0242, Other Start: 08-08-2024 End: 08-09-2024 1-20 mL, Other, NEEDED, S tarting on Mon08/08/24 at 1418, Until Mon08/09/24 at 0242, Other Start: 02-21-2024 End: 02-22-2024 1-20 mL, Infiltration, NE EDED, Starting on Mon02/21/24 at 0934, Until Mon02/22/24 at 0249, Other 2 ml midazolam 1 mg/ml injection (1 source) Benzodiazepine Start: 11-26-2024 End: 11-26-2024 0-10 mg, Intravenous, ADMINISTER DIRECTED, Starting on Mon11/26/24 at 1059, Until Mon11/26/24 at 1428, Procedural sedation, Administer during procedure as directed by physician. Recorded MAR dose is cumulative amount given during procedure., Intra-op/Intra-Proc Naloxone (NARCAN) injection 0.1 mg (1 source) Start: 11-26-2024 End: 11-26-2024 Naloxone (NARCAN) injection 0.1 mg OLANZapine 5 mg oral tablet (20 sources) Atypical Antipsychotic Start: 08-15-2024 End: 09-02-2024 take 1 tablet by mouth once daily Olanzapine 5 mg tablet Discontinued 5 mg PO daily August 15, 2024 1:00am September 02, 2024 10:02am Start: 04-05-2024 2.5 mg, Oral, ONCE (OUTPT CLINIC), 1 dose, Starting on Mon04/05/24 at 1127, Until Mon04/05/24 at 1137, Give 30 minutes prior to chemotherapy. Start: 03-22-2024 2.5 mg, Oral, ONCE (OUTPT CLINIC), 1 dose, Starting on Mon03/22/24 at 1002, Until Mon03/22/24 at 1113, Give 30 minutes prior to chemotherapy. Start: 03-08-2024 2.5 mg, Oral, ONCE (OUTPT CLINIC), 1 dose, Starting on Mon03/08/24 at 1115, Until Mon03/08/24 at 1137, Give 30 minutes prior to chemotherapy. Start: 02-23-2024 2.5 mg, Oral, ONCE (OUTPT CLINIC), 1 dose, Starting on Mon02/23/24 at 1058, Until Mon02/23/24 at 1108, Give 30 minutes prior to chemotherapy. Start: 02-15-2024 End: 05-10-2024 OLANZapine 5 MG tablet Take 5 mg PO at bedtime on days 1, 2, 3, 4 following chemotherapy, or UD by physician 25 tablet 02/15/2024 05/10/2024 Discontinued ondansetron 8 mg oral tablet (11 sources) Serotonin-3 Receptor Antagonist Start: 12-13-2024 End: 12-13-2024 8 mg, Oral, ONCE (OUTPT CLINIC), 1 dose, Starting on Mon12/13/24 at 1204, Until Mon12/13/24 at 1225, Administer prior to zoledronic acid infusion. It is not necessary to wait 30 minutes between premedication and infusion. Start: 12-02-2024 take 1 tablet by janice th every six hours Ondansetron Hcl 4 mg tablet Active 4 mg PO EVERY 6 HOURS December 02, 2024 12:00am Start: 11-26-2024 End: 11-26-2024 take 1 tablet by mouth every six hours as needed Ondansetron (ZOFRAN) tablet 4 mg Start: 11-26-2024 End: 11-26-2024 4 mg, Intravenous, ONCE NEEDED, 1 dose, Starting on Mon11/26/24 at 1059, Until Mon11/26/24 at 1428, Nausea, Intra-op/Intra-Proc Start: 11-08-2024 take 1 tablet by janice th twice daily as needed Ondansetron 8 MG tablet Indications: Malignant neoplasm of overlapping sites of right breast in female, estrogen receptor positive Take 1 tablet by mouth 2 times daily as needed for Other. 60 tablet 2 11/08/2024 Active Start: 02-16-2024 End: 02-16-2024 take 4 mg intravenously every six hours as needed 4 mg, Intravenous, EVERY 6 HOURS NEEDED, Starting on Mon02/16/24 at 1039, Until Mon02/16/24 at 1328, Nausea / Vomiting, 1st line, If N/V persists through 1st line, continue 1st line therapy in addition to 2nd line therapy., Post-op/Post-Proc Ondansetron 4mg/2ml (ZOFRAN) injection 4 mg (1 source) Start: 08-09-2024 End: 08-09-2024 take 4 mg intravenously every six hours as needed Ondansetron 4mg/2ml (ZOFRAN) injection 4 mg oxyCODONE (2 sources) Opioid Agonist Start: 08-09-2024 End: 08-09-2024 take 1 tablet by mouth every four hours as needed oxyCODONE (ROXICODONE) tablet 2.5 mg Start: 02-16-2024 End: 02-16-2024 5 mg, Oral, EVERY 4 HOURS NEEDED, 2 doses, Starting on Mon02/16/24 at 0956, Until Mon02/16/24 at 1328, Mild Pain, Recovery PACLitaxel (20 sources) Microtubule Inhibitor End: 07-15-2024 PACLITAXEL IV by Intravenous route. 07/15/2024 Discontinued PACLITAXEL IV by Intravenous route. Active PACLitaxel (TAXOL) 162 mg in Sodium chloride 0.9% (DEHP-Free), with overfill, tubing 323 mL (total volume) chemo infusion (12 sources) Start: 07-11-2024 End: 07-11-2024 162 mg (rounded from 163.2 m g = 80 mg/m2 2.04 m2 Treatment Plan BSA from Recorded weight), Intravenous, at 323 mL/hr, Administer over 1 Hours, ONCE (OUTPT CLINIC), 1 dose, Starting on Gregoria 07/11/24 at 0929, Until Gregoria 07/11/24 at 1113, See Monitoring Guidelines. Start: 07-05-2024 End: 07-05-2024 162 mg (rounded from 163.2 m g = 80 mg/m2 2.04 m2 Treatment Plan BSA from Recorded weight), Intravenous, at 323 mL/hr, Administer over 1 Hours, ONCE (OUTPT CLINIC), 1 dose, Starting on Mon07/05/24 at 1446, Until Mon07/05/24 at 1630, See Monitoring Guidelines. Start: 06-28-2024 End: 06-28-2024 162 mg (rounded from 163.2 m g = 80 mg/m2 2.04 m2 Treatment Plan BSA from Recorded weight), Intravenous, at 323 mL/hr, Administer over 1 Hours, ONCE (OUTPT CLINIC), 1 dose, Starting on Mon06/28/24 at 1121, Until Mon06/28/24 at 1255, See Monitoring Guidelines. Start: 06-21-2024 End: 06-21-2024 162 mg (rounded from 163.2 m g = 80 mg/m2 2.04 m2 Treatment Plan BSA from Recorded weight), Intravenous, at 323 mL/hr, Administer over 1 Hours, ONCE (OUTPT CLINIC), 1 dose, Starting on Mon06/21/24 at 0852, Until Mon06/21/24 at 1028, See Monitoring Guidelines. Start: 06-14-2024 End: 06-14-2024 162 mg (rounded from 163.2 m g = 80 mg/m2 2.04 m2 Treatment Plan BSA from Recorded weight), Intravenous, at 323 mL/hr, Administer over 1 Hours, ONCE (OUTPT CLINIC), 1 dose, Starting on Mon06/14/24 at 1425, Until Mon06/14/24 at 1553, See Monitoring Guidelines. Start: 06-04-2024 End: 06-04-2024 162 mg (rounded from 163.2 m g = 80 mg/m2 2.04 m2 Treatment Plan BSA from Recorded weight), Intravenous, at 323 mL/hr, Administer over 1 Hours, ONCE (OUTPT CLINIC), 1 dose, Starting on Mon06/04/24 at 1151, Until Mon06/04/24 at 1346, See Monitoring Guidelines. Start: 05-24-2024 End: 05-24-2024 162 mg (rounded from 163.2 m g = 80 mg/m2 2.04 m2 Treatment Plan BSA from Recorded weight), Intravenous, at 323 mL/hr, Administer over 1 Hours, ONCE (OUTPT CLINIC), 1 dose, Starting on Mon05/24/24 at 0905, Until Mon05/24/24 at 1051, See Monitoring Guidelines. Start: 05-17-2024 End: 05-17-2024 162 mg (rounded from 163.2 m g = 80 mg/m2 2.04 m2 Treatment Plan BSA from Recorded weight), Intravenous, at 323 mL/hr, Administer over 1 Hours, ONCE (OUTPT CLINIC), 1 dose, Starting on Mon05/17/24 at 0912, Until Mon05/17/24 at 1113, See Monitoring Guidelines. Start: 05-10-2024 End: 05-10-2024 162 mg (rounded from 163.2 m g = 80 mg/m2 2.04 m2 Treatment Plan BSA from Recorded weight), Intravenous, at 323 mL/hr, Administer over 1 Hours, ONCE (OUTPT CLINIC), 1 dose, Starting on Mon05/10/24 at 0907, Until Mon05/10/24 at 1111, See Monitoring Guidelines. Start: 05-03-2024 End: 05-03-2024 162 mg (rounded from 163.2 m g = 80 mg/m2 2.04 m2 Treatment Plan BSA from Recorded weight), Intravenous, at 323 mL/hr, Administer over 1 Hours, ONCE (OUTPT CLINIC), 1 dose, Starting on Mon05/03/24 at 0929, Until Mon05/03/24 at 1131, See Monitoring Guidelines. Start: 04-26-2024 End: 04-26-2024 162 mg (rounded from 163.2 m g = 80 mg/m2 2.04 m2 Treatment Plan BSA from Recorded weight), Intravenous, at 323 mL/hr, Administer over 1 Hours, ONCE (OUTPT CLINIC), 1 dose, Starting on Mon04/26/24 at 0919, Until Mon04/26/24 at 1106, See Monitoring Guidelines. Start: 04-19-2024 End: 04-19-2024 162 mg (rounded from 163.2 m g = 80 mg/m2 2.04 m2 Treatment Plan BSA from Recorded weight), Intravenous, at 323 mL/hr, Administer over 1 Hours, ONCE (OUTPT CLINIC), 1 dose, Starting on Mon04/19/24 at 1115, Until Mon04/19/24 at 1327, See Monitoring Guidelines. 5 ml palonosetron 0.05 mg/ml injection (4 sources) Serotonin-3 Receptor Antagonist Start: 04-05-2024 End: 04-05-2024 take 0.25 mg intravenously once 0.25 mg, Intravenous, ONCE (OUTPT CLINIC), 1 dose, Starting on Mon04/05/24 at 1127, Until Mon04/05/24 at 1146, Administer by IV push over 30 seconds. Give 30 minutes prior to chemotherapy. Start: 03-22-2024 End: 03-22-2024 take 0.25 mg intravenously once 0.25 mg, Intravenous, ONCE (OUTPT CLINIC), 1 dose, Starting on Mon03/22/24 at 1002, Until Mon03/22/24 at 1115, Administer by IV push over 30 seconds. Give 30 minutes prior to chemotherapy. Start: 03-08-2024 End: 03-08-2024 take 0.25 mg intravenously once 0.25 mg, Intravenous, ONCE (OUTPT CLINIC), 1 dose, Starting on Mon03/08/24 at 1115, Until Mon03/08/24 at 1141, Administer by IV push over 30 seconds. Give 30 minutes prior to chemotherapy. Start: 02-23-2024 End: 02-23-2024 take 0.25 mg intravenously once 0.25 mg, Intravenous, ONCE (OUTPT CLINIC), 1 dose, Starting on Mon02/23/24 at 1058, Until Mon02/23/24 at 1111, Administer by IV push over 30 seconds. Give 30 minutes prior to chemotherapy. 0.6 ml pegfilgrastim 10 mg/ml prefilled syringe (4 sources) Leukocyte Growth Factor Start: 04-05-2024 End: 04-05-2024 inject 1 dose by subcutaneous injection once 6 mg, Subcutaneous, ONCE (OUTPT CLINIC), 1 dose, Starting on Mon04/05/24 at 1129, Until Mon04/05/24 at 1251, Chemo nurse to prepare on-body injector and apply to back of upper arm or abdomen and complete documentation including lot number. Before applying, confirm patient has no scans/procedures scheduled within 27 hours after application (the time before the pegfilgrastim OBI will infuse). If scans/procedures are scheduled, do NOT apply the device and contact the ordering team., Indications: Prevention of Chemotherapy-Induced Neutropenia (Z76.89) Start: 03-22-2024 End: 03-22-2024 inject 1 dose by subcutaneous injection once 6 mg, Subcutaneous, ONCE (OUTPT CLINIC), 1 dose, Starting on Mon03/22/24 at 1004, Until Mon03/22/24 at 1254, Chemo nurse to prepare on-body injector and apply to back of upper arm or abdomen and complete documentation including lot number. Before applying, confirm patient has no scans/procedures scheduled within 27 hours after application (the time before the pegfilgrastim OBI will infuse). If scans/procedures are scheduled, do NOT apply the device and contact the ordering team., Indications: Prevention of Chemotherapy-Induced Neutropenia (Z76.89) Start: 03-08-2024 End: 03-08-2024 inject 1 dose by subcutaneous injection once 6 mg, Subcutaneous, ONCE (OUTPT CLINIC), 1 dose, Starting on Mon03/08/24 at 1118, Until Mon03/08/24 at 1340, Chemo nurse to prepare on-body injector and apply to back of upper arm or abdomen and complete documentation including lot number. Before applying, confirm patient has no scans/procedures scheduled within 27 hours after application (the time before the pegfilgrastim OBI will infuse). If scans/procedures are scheduled, do NOT apply the device and contact the ordering team., Indications: Prevention of Chemotherapy-Induced Neutropenia (Z76.89) Start: 02-23-2024 End: 02-23-2024 inject 1 dose by subcutaneous injection once 6 mg, Subcutaneous, ONCE (OUTPT CLINIC), 1 dose, Starting on Mon02/23/24 at 1101, Until Mon02/23/24 at 1206, Chemo nurse to prepare on-body injector and apply to back of upper arm or abdomen and complete documentation including lot number. Before applying, confirm patient has no scans/procedures scheduled within 27 hours after application (the time before the pegfilgrastim OBI will infuse). If scans/procedures are scheduled, do NOT apply the device and contact the ordering team., Indications: Prevention of Chemotherapy-Induced Neutropenia (Z76.89) prochlorperazine 10 mg oral tablet (20 sources) Phenothiazine Start: 08-15-2024 End: 09-02-2024 take 1 tablet by mouth every eight hours as needed Prochlorperazine Maleate 10 mg tablet Discontinued 10 mg PO Q8H as needed August 15, 2024 1:00am September 02, 2024 10:02am Start: 08-09-2024 End: 08-09-2024 take 10 mg intravenously every six hours as needed 10 mg, Intravenous, EVERY 6 HOURS NEEDED, Starting on Mon08/09/24 at 1403, Until Mon08/09/24 at 1746, Nausea / Vomiting, 2nd line, For IV route: dilute dose with 10mL normal saline and give by slow IV push at a rate of 5mg/min. Maximum of 40mg/day., Post-op/Post-Proc Start: 08-09-2024 End: 08-09-2024 take 5 mg intravenously every hour as needed 5 mg, Intravenous, EVERY 1 HOUR NEEDED, 2 doses, Starting on Mon08/09/24 at 1241, Until Mon08/09/24 at 1746, Nausea / Vomiting, FIRST Line antiemetic, Do not administer within 6 hours of intra-operative dose. For IV route: dilute dose with 10mL normal saline and give by slow IV push at a rate of 5mg/min. Maximum of 40mg/day., Recovery Start: 02-16-2024 End: 02-16-2024 take 10 mg intravenously every six hours as needed 10 mg, Intravenous, EVERY 6 HOURS NEEDED, Starting on Mon02/16/24 at 1039, Until Mon02/16/24 at 1328, Refractory Nausea Vomiting, In addition to 1st line therapy., Post-op/Post-Proc Start: 02-16-2024 End: 02-16-2024 take 5 mg intravenously every hour as needed 5 mg, Intravenous, Administer over 5 Minutes, EVERY 1 HOUR NEEDED, Starting on Mon02/16/24 at 0956, Until Mon02/16/24 at 1328, Refractory Nausea Vomiting, SECOND Line, Use if patient still experiencing nausea/vomiting after 1st line antiemetic. For IV route: dilute dose with 10mL normal saline and give by slow IV push at a rate of 5mg/min. Maximum of 40mg/day., Recovery Start: 02-15-2024 End: 07-15-2024 take 1 tablet by mouth every six hours as needed Prochlorperazine 10 MG tablet Take 1 tablet by mouth every 6 hours as needed for Nausea / Vomiting. 40 tablet 3 02/15/2024 07/15/2024 Discontinued sennosides, mcc 8.6 mg oral tablet (1 source) Start: 08-09-2024 End: 08-09-2024 take 8.6 mg by mouth twice daily 8.6 mg, Oral, 2 TIMES DAILY, First dose on Mon08/09/24 at 1700, Until Discontinued, Post-op/Post-Proc 250 ml sodium chloride 9 mg/ml injection (20 sources) Start: 12-13-2024 End: 12-13-2024 500 mL, Intravenous, at 20-999 mL/hr, CONTINUOUS, Starting on Mon12/13/24 at 1215, Until Mon12/13/24 at 1901, Infuse at 20 mL/hr. May increase rate of carrier fluid to max rate of drug in line to manage drug induced burning at IV site during infusion and/or to clear the line of drug and flush the IV site for a maximum of 30 min post drug administration. Start: 07-11-2024 End: 07-11-2024 1-100 mL, Intravenous, ONCE NEEDED, 1 dose, Starting on Mon07/11/24 at 1319, Until Mon07/11/24 at 1329, Flush, MR Procedure Start: 07-11-2024 End: 07-11-2024 500 mL, Intravenous, at 20-9 99 mL/hr, CONTINUOUS, Starting on Mon07/11/24 at 0915, Until 07/11/24 at 1327, Infuse at 20 mL/hr. May increase rate of carrier fluid to max rate of drug in line to manage drug induced burning at IV site during infusion and/or to clear the line of drug and flush the IV site for a maximum of 30 min post drug administration. Start: 07-05-2024 End: 07-05-2024 1 dose, Starting on Mon at 1500, Until Mon07/05/24 at 1638, Created by cabinet override Start: 06-28-2024 End: 06-28-2024 1 dose, Starting on 06/03 at 1121, Until Mon06/28/24 at 1154, Created by cabinet override Start: 06-28-2024 End: 06-28-2024 500 mL, Intravenous, at 20-9 99 mL/hr, CONTINUOUS, Starting on Mon06/28/24 at 1115, Until Mon06/28/24 at 1527, Infuse at 20 mL/hr. May increase rate of carrier fluid to max rate of drug in line to manage drug induced burning at IV site during infusion and/or to clear the line of drug and flush the IV site for a maximum of 30 min post drug administration. Start: 06-21-2024 End: 06-21-2024 1 dose, Starting on 06/03 at 0853, Until Mon06/21/24 at 0859, Created by cabinet override Start: 06-21-2024 End: 06-21-2024 500 mL, Intravenous, at 20-9 99 mL/hr, CONTINUOUS, Starting on Mon06/21/24 at 0815, Until Mon06/21/24 at 1312, Infuse at 20 mL/hr. May increase rate of carrier fluid to max rate of drug in line to manage drug induced burning at IV site during infusion and/or to clear the line of drug and flush the IV site for a maximum of 30 min post drug administration. Start: 06-14-2024 End: 06-14-2024 1 dose, Starting on 06/02 at 1422, Until Mon06/14/24 at 1427, Created by cabinet override Start: 06-14-2024 End: 06-14-2024 500 mL, Intravenous, at 20-9 99 mL/hr, CONTINUOUS, Starting on Mon06/14/24 at 1400, Until Mon06/14/24 at 1759, Infuse at 20 mL/hr. May increase rate of carrier fluid to max rate of drug in line to manage drug induced burning at IV site during infusion and/or to clear the line of drug and flush the IV site for a maximum of 30 min post drug administration. Start: 06-04-2024 End: 06-04-2024 1 dose, Starting on 06/04 at 1145, Until Mon06/04/24 at 1152, Created by cabinet override Start: 06-04-2024 End: 06-04-2024 500 mL, Intravenous, at 20-9 99 mL/hr, CONTINUOUS, Starting on Mon06/04/24 at 1145, Until Mon06/04/24 at 1551, Infuse at 20 mL/hr. May increase rate of carrier fluid to max rate of drug in line to manage drug induced burning at IV site during infusion and/or to clear the line of drug and flush the IV site for a maximum of 30 min post drug administration. Start: 05-24-2024 End: 05-24-2024 500 mL, Intravenous, at 20-9 99 mL/hr, CONTINUOUS, Starting on Mon05/24/24 at 0845, Until Mon05/24/24 at 1323, Infuse at 20 mL/hr. May increase rate of carrier fluid to max rate of drug in line to manage drug induced burning at IV site during infusion and/or to clear the line of drug and flush the IV site for a maximum of 30 min post drug administration. Start: 05-17-2024 End: 05-17-2024 500 mL, Intravenous, at 20-9 99 mL/hr, CONTINUOUS, Starting on Mon05/17/24 at 0845, Until Mon05/17/24 at 1905, Infuse at 20 mL/hr. May increase rate of carrier fluid to max rate of drug in line to manage drug induced burning at IV site during infusion and/or to clear the line of drug and flush the IV site for a maximum of 30 min post drug administration. Start: 05-10-2024 End: 05-10-2024 1 dose, Starting on 05/10 at 0930, Until Mon05/10/24 at 1012, Created by cabinet override Start: 05-10-2024 End: 05-10-2024 500 mL, Intravenous, at 20-9 99 mL/hr, CONTINUOUS, Starting on Mon05/10/24 at 0915, Until Mon05/10/24 at 1324, Infuse at 20 mL/hr. May increase rate of carrier fluid to max rate of drug in line to manage drug induced burning at IV site during infusion and/or to clear the line of drug and flush the IV site for a maximum of 30 min post drug administration. Start: 05-03-2024 End: 05-03-2024 1 dose, Starting on 05/03 at 0926, Until Mon05/03/24 at 0932, Created by cabinet override Start: 05-03-2024 End: 05-03-2024 500 mL, Intravenous, at 20-9 99 mL/hr, CONTINUOUS, Starting on Mon05/03/24 at 0845, Until Mon05/03/24 at 1343, Infuse at 20 mL/hr. May increase rate of carrier fluid to max rate of drug in line to manage drug induced burning at IV site during infusion and/or to clear the line of drug and flush the IV site for a maximum of 30 min post drug administration. Start: 04-26-2024 End: 04-26-2024 500 mL, Intravenous, at 20-9 99 mL/hr, CONTINUOUS, Starting on Mon04/26/24 at 0845, Until Mon04/26/24 at 1316, Infuse at 20 mL/hr. May increase rate of carrier fluid to max rate of drug in line to manage drug induced burning at IV site during infusion and/or to clear the line of drug and flush the IV site for a maximum of 30 min post drug administration. Start: 04-19-2024 End: 04-19-2024 500 mL, Intravenous, at 20-9 99 mL/hr, CONTINUOUS, Starting on Mon04/19/24 at 1115, Until Mon04/19/24 at 1537, Infuse at 20 mL/hr. May increase rate of carrier fluid to max rate of drug in line to manage drug induced burning at IV site during infusion and/or to clear the line of drug and flush the IV site for a maximum of 30 min post drug administration. Start: 04-05-2024 End: 04-05-2024 500 mL, Intravenous, at 20-9 99 mL/hr, CONTINUOUS, Starting on Mon04/05/24 at 1130, Until Mon04/05/24 at 1615, Infuse at 20 mL/hr. May increase rate of carrier fluid to max rate of drug in line to manage drug induced burning at IV site during infusion and/or to clear the line of drug and flush the IV site for a maximum of 30 min post drug administration. Start: 03-22-2024 End: 03-22-2024 500 mL, Intravenous, at 20-9 99 mL/hr, CONTINUOUS, Starting on Mon03/22/24 at 1015, Until Mon03/22/24 at 1601, Infuse at 20 mL/hr. May increase rate of carrier fluid to max rate of drug in line to manage drug induced burning at IV site during infusion and/or to clear the line of drug and flush the IV site for a maximum of 30 min post drug administration. Start: 03-08-2024 End: 03-08-2024 500 mL, Intravenous, at 20-9 99 mL/hr, CONTINUOUS, Starting on Mon03/08/24 at 1130, Until Mon03/08/24 at 1925, Infuse at 20 mL/hr. May increase rate of carrier fluid to max rate of drug in line to manage drug induced burning at IV site during infusion and/or to clear the line of drug and flush the IV site for a maximum of 30 min post drug administration. Start: 02-25-2024 End: 02-25-2024 1-250 mL, Intravenous, ONCE NEEDED, 1 dose, Starting on Mon02/25/24 at 1141, Until Mon02/25/24 at 1216, Flush, MR Procedure Start: 02-23-2024 End: 02-23-2024 500 mL, Intravenous, at 20-9 99 mL/hr, CONTINUOUS, Starting on Mon02/23/24 at 1100, Until Mon02/23/24 at 1811, Infuse at 20 mL/hr. May increase rate of carrier fluid to max rate of drug in line to manage drug induced burning at IV site during infusion and/or to clear the line of drug and flush the IV site for a maximum of 30 min post drug administration. Start: 02-21-2024 End: 02-21-2024 1-100 mL, Intravenous, ONCE NEEDED, 1 dose, Starting on Mon02/21/24 at 1625, Until Mon02/21/24 at 1625, Flush, MR Procedure Start: 02-13-2024 End: 02-13-2024 1-100 mL, Intravenous, ONCE NEEDED, 1 dose, Starting on Mon02/13/24 at 1157, Until Mon02/13/24 at 1159, Flush, CT Procedure Tc-99m medronate (MDP) 22.5-33 millicurie (1 source) Start: 02-13-2024 End: 02-13-2024 22.5-33 millicurie, Intravenous, ONCE, 1 dose, On Mon02/13/24 at 1100 TC-99M SULFUR COLLOID (0.10 UM FILTRATE) IVPB 0.36-0.6 millicurie (1 source) Start: 08-09-2024 End: 08-09-2024 0.36-0.6 millicurie, Subcutaneous, ONCE, 1 dose, On Mon08/09/24 at 1015 terbinafine 250 mg oral tablet (10 sources) Allylamine Antifungal Start: 09-09-2021 End: 01-19-2024 take 1 tablet by mouth once daily Terbinafine Hcl 250 mg tablet Discontinued 250 mg PO DAILY September 09, 2021 1:00am January 19, 2024 10:28am traMADol hydrochloride 50 mg oral tablet (12 sources) Opioid Agonist Start: 08-09-2024 End: 12-13-2024 take 1 tablet by mouth every six hours as needed for pain traMADol 50 MG tablet Indications: S/P breast lumpectomy Take 1 tablet by mouth every 6 hours as needed for breakthrough pain for up to 7 days. 5 tablet 08/09/2024 1:51 PM EST 08/09/2024 12/13/2024 Discontinued (Therapy completed) Start: 02-16-2024 End: 02-16-2024 take 1 tablet by mouth every six hours as needed 50 mg, Oral, EVERY 6 HOURS NEEDED, Starting on Mon02/16/24 at 1039, Until Mon02/16/24 at 1328, Mild Pain, Moderate Pain, Post-op/Post-Proc VERIFY LINKED PATCH PLACEMENT (1 source) Start: 02-16-2024 End: 02-16-2024 Other, EVERY 12 HOURS, First dose on Mon02/16/24 at 0900, Until Discontinued, Confirm continued adhesion of scopolamine 1.5 mg/72hr patch at documented site. 100 ml zoledronic acid 0.04 mg/ml injection (4 sources) Bisphosphonate Start: 12-13-2024 End: 12-13-2024 4 mg, Intravenous, Administer over 15 Minutes, ONCE (OUTPT CLINIC), 1 dose, Starting on Mon12/13/24 at 1207, Until Mon12/13/24 at 1238 Start: 12-02-2024 Zoledronic Aci d 4 mg recon soln Active mg .Route December 02, 2024 12:00am IV infusion beginning 12/13/24 Zoledronic Acid (ZOMETA IV) by Intravenous route. Active Problems Active Problems Problem Classification Problem Date Documented Da te Episodic/Chronic Allergic reactions (3 sources) Radiation dermatitis; Translations: [Radiodermatitis, unspecified] Onset: 12-04-2024 10-31-2024 Episodic Cancer of breast (20 sources) Overlapping malignant neoplasm of female breast; Translations: [Malignant neoplasm of overlapping sites of right female breast] Onset: 01-19-2024 02-01-2024 Chronic Comment on above: Inner upper quadrant , 2.8 cm, ER + (95%)/VA + (32%)/HER2 negative, FISH negative, Ki-67 75%, cT2N1 Grade 3. Cancer of breast (1 source) History of malignant neoplasm of breast; Translations: [Personal history of malignant neoplasm of breast] 02-05-2024 Episodic Fluid and electrolyte disorders (7 sources) Hyponatremia; Translations: [Hypo-osmolality and hyponatremia] Onset: 12-13-2024 12-13-2024 Episodic Joint disorders and dislocations; trauma-related (2 sources) Derangement of knee; Translations: [Unspecified internal derangement of unspecified knee] Onset: 06-02-2016 01-29-2024 Chronic Lymphadenitis (15 sources) Axillary lymphadenopathy; Translations: [Localized enlarged lymph nodes] Onset: 12-05-2024 08-15-2024 Episodic Comment on above: right. Anatomic stag e IIB/Clinical Prognostic Stage IIB, [id number](pending MRI abdomen) Maintenance chemotherapy; radiotherapy (1 source) Patient encounter status; Translations: [Encounter for antineoplastic chemotherapy] 02-15-2024 Chronic Nonmalignant breast conditions (5 sources) Lump in right breast; Translations: [Unspecified lump in the right breast, unspecified quadrant] Onset: 08-09-2024 08-09-2024 Episodic Other aftercare (9 sources) Prophylactic aromatase inhibitors given; Translations: [senior care (current) use of aromatase inhibitors] Onset: 11-08-2024 11-08-2024 Episodic Other aftercare (1 source) drier tender (current) use of aromatase inhibitors; Translations: [senior care (current) use of aromatase inhibitors] Onset: 11-08-2024 Episodic Other aftercare (1 source) Encounter for adjustment and management of vascular access device; Translations: [Encounter for adjustment and management of vascular access device] Onset: 10-09-2024 Episodic Other bone disease and musculoskeletal deformities (5 sources) Postmenopausal osteopenia; Translations: [Other specified disorders of bone density and structure, unspecified site] Onset: 11-09-2024 11-09-2024 Episodic Other nervous system disorders (20 sources) Peripheral nerve disease ; Translations: [Polyneuropathy, unspecified] Onset: 06-28-2024 06-28-2024 Chronic Other nervous system disorders (2 sources) Polyneuropathy due to drug; Translations: [Drug-induced polyneuropathy] Onset: 06-28-2024 06-28-2024 Chronic Other nervous system disorders (1 source) Drug-induced polyneuropathy; Translations: [Drug-induced polyneuropathy] Onset: 06-28-2024 Chronic Other nervous system disorders (2 sources) Other disturbances of smell and taste; Translations: [Other disturbances of smell and taste] Onset: 05-18-2020 Episodic Other nutritional; endocrine; and metabolic disorders (20 sources) Obese class II; Translations: [Obesity, Class II, BMI 35-39.9] Onset: 04-09-2024 04-09-2024 Chronic Residual codes; unclassified (2 sources) Bilateral lower limb edema; Translations: [Localized edema] 06-04-2024 Episodic Residual codes; unclassified (3 sources) Estrogen receptor positive tumor; Translations: [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+]] 08-15-2024 Episodic Secondary malignancies (2 sources) 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 Secondary malignancies (2 sources) Secondary and unspecified malignant neoplasm of axilla and upper limb lymph nodes; Translations: [Secondary and unspecified malignant neoplasm of axilla and upper limb lymph nodes] Onset: 11-08-2024 Chronic Thyroid disorders (1 source) Other specified hypothyroidism; Translations: [Other specified hypothyroidism] Onset: 03-11-2024 Chronic Unclassified (1 source) Unknown / UNK(Unknown) Onset: 07-28-2017 Unclassified (1 source) COVID-19; Translations: [COVID-19] Onset: 05-18-2020 Past or Other Problems Problem Classification Problem Date Documented Date Episodic/Chronic Administrative/social admission (2 sources) Counseling, unspecified; Translations: [Dietary counseling and surveillance] Onset: 03-20-2024 Episodic Fracture of lower limb (2 sources) Closed fracture of upper end of tibia; Translations: [Unspecified fracture of upper end of unspecified tibia, initial encounter for closed fracture] Onset: 06-24-2016 01-29-2024 Episodic Mood disorders (20 sources) Mood disorders Onset: 02-05-2024 Resolved: 11-08-2024 02-05-2024 Other non-traumatic joint disorders (2 sources) Knee joint effusion; Translations: [Effusion, unspecified knee] Onset: 06-02-2016 01-29-2024 Episodic Other screening for suspected conditions (not mental disorders or infectious disease) (20 sources) Patient encounter status; Translations: [Encounter for screening for malignant neoplasm of colon] Onset: 01-20-2024 Episodic Residual codes; unclassified (20 sources) History of total hysterectomy with bilateral salpingo-oophorectomy ; Translations: [Acquired absence of both cervix and uterus] Onset: 02-05-2024 02-05-2024 Episodic Residual codes; unclassified (15 sources) Other specified postprocedural states; Translations: [Other postprocedural status] Onset: 08-09-2024 08-09-2024 Episodic Residual codes; unclassified (1 source) 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+]; Translations: [Estrogen receptor positive status (ER+)] Onset: 08-09-2024 Episodic Residual codes; unclassified (1 source) Other specified health status; Translations: [Other specified health status] Onset: 07-29-2024 Episodic Residual codes; unclassified (2 sources) Other specified personal risk factors, not elsewhere classified; Translations: [Other specified personal risk factors, not elsewhere classified] Onset: 07-15-2024 Episodic Residual codes; unclassified (1 source) Localized edema; Translations: [Localized edema] Onset: 06-14-2024 Episodic Residual codes; unclassified (1 source) Family history of malignant neoplasm of breast; Translations: [Family history of malignant neoplasm of breast] Onset: 02-13-2024 Episodic Residual codes; unclassified (2 sources) Family history of malignant neoplasm of other organs or systems; Translations: [Family history of malignant neoplasm of other organs or systems] Onset: 02-13-2024 Episodic Residual codes; unclassified (2 sources) Family history of malignant neoplasm of digestive organs; Translations: [Family history of malignant neoplasm of digestive organs] Onset: 02-13-2024 Episodic Residual codes; unclassified (1 source) Family history of malignant neoplasm of bladder; Translations: [Family history of malignant neoplasm of bladder] Onset: 02-13-2024 Episodic Residual codes; unclassified (1 source) Other specified postprocedural states; Translations: [Other specified postprocedural states] Onset: 08-09-2024 Episodic Residual codes; unclassified (1 source) Localized edema; Translations: [Localized edema] Onset: 06-14-2024 Episodic Residual codes; unclassified (1 source) Family history of breast cancer; Translations: [Family history of malignant neoplasm of breast] Onset: 02-13-2024 Episodic Sprains and strains (2 sources) Sprain of anterior cruciate ligament of right knee, subsequent encounter; Translations: [Other specified aftercare] Onset: 06-24-2016 01-29-2024 Episodic Superficial injury; contusion (2 sources) Contusion of knee; Translations: [Contusion of unspecified knee, initial encounter] Onset: 06-02-2016 01-29-2024 Episodic Unclassified (1 source) COUGH,TIGHTNESS IN CHEST Onset: 07-28-2017 Unclassified (2 sources) Prophylactic aromatase inhibitors given 11-08-2024 Unclassified (1 source) senior care (current) use of aromatase inhibitors; Translations: [drier tender (current) use of aromatase inhibitors] Onset: 11-08-2024 Unclassified (1 source) Malignant neoplasm of unspecified site of right female breast; Translations: [Malignant neoplasm of unspecified site of right female breast] Onset: 11-08-2024 Unclassified (1 source) Unspecified lump in the right breast, unspecified quadrant; Translations: [Unspecified lump in the right breast, unspecified quadrant] Onset: 08-09-2024 Unclassified (1 source) Malignant neoplasm of overlapping sites of right female breast; Translations: [Malignant neoplasm of overlapping sites of right female breast] Onset: 08-09-2024 Unclassified (1 source) Estrogen receptor positive status (ER+); Translations: [Estrogen receptor positive status (ER+)] Onset: 08-09-2024 Unclassified (1 source) Other specified health status; Translations: [Other specified health status] Onset: 07-29-2024 Unclassified (1 source) Counseling, unspecified; Translations: [Counseling, unspecified] Onset: 07-15-2024 Unclassified (1 source) Dietary counseling and surveillance; Translations: [Dietary counseling and surveillance] Onset: 03-20-2024 Unclassified (1 source) Encounter for observation for other suspected diseases and conditions ruled out; Translations: [Encounter for observation for other suspected diseases and conditions ruled out] Onset: 02-25-2024 Unclassified (1 source) Abnormal findings on diagnostic imaging of liver and biliary tract; Translations: [Abnormal findings on diagnostic imaging of liver and biliary tract] Onset: 02-25-2024 Unclassified (1 source) Family history of malignant neoplasm of bladder; Translations: [Family history of malignant neoplasm of bladder] Onset: 02-13-2024 Results Test Name Value Interpretation Reference Range Facility Anion gap in Serum or Plasma on 12-16-2024 Anion gap [Moles/Vol] 10 mmol/L -15 [facility] BUNon 12-16-2024 Urea nitrogen [Mass/Vol] 12 mg/dL Normal - [facility] Comment on above: Performed By: #### L 501.5294, L501.1000, L501.1105 #### [facility] Laboratory [address] [place], [address] Carbon dioxide, total [Moles /volume] in Central venous bloodon 12-16-2024 CO2 [Moles/Vol] 23.1 mmol/L 21.0-32.0 [facility] Chloride assayon 12-16-2024 Chloride [Moles/Vol] 102 mmol/L 98-108 [facility] Electrolyte Panelon 12-17-19 Chloride [Moles/Vol] 102 mmol/L Normal 98-108 [facility] Comment on above: Performed By: #### L 501.5294, L501.1000, L501.1105 ####[facility] [address] [place], [address] CO2 [Moles/Vol] 23.1 mmol/L Normal 21.0-32.0 [facility] Comment on above: Performed By: #### L 501.5294, L501.1000, L501.1105 ####[facility] [address] [place], [address] GAP 10 Normal 5-15 [facility] Comment on above: Performed By: #### L 501.5294, L501.1000, L501.1105 ####[facility] [address] [place], [address] Potassium [Moles/Vol] 4.3 mmol/L Normal 3.3-5.1 [facility] Comment on above: Performed By: #### L 501.5294, L501.1000, L501.1105 ####[facility] [address], [address] Sodium [Moles/Vol] 135 mmol/L Normal 133-145 [facility] Comment on above: Performed By: #### L 501.5294, L501.1000, L501.1105 ####[facility] [address] [place], [place], [address] Glomerular filtration rate ( GFR) estimation/1.73 sq m using serum, plasma, or whole bon 12-16-2024 GFR/1.73 sq M.predicted among non-blacks MDRD (S/P/Bld) [Vol rate/Area] 91 mL/min/{1.73_m2} >60 [facility] Comment on above: mL/min/1.73m2 CKD-EP I Creatinine Equation (2020) Potassium measurement (mass/ volume)on 12-16-2024 Potassium (Unsp spec) [Mass/Vol] 4.3 mmol/L 3.3-5.1 [facility] Serum Creatinine AND GFRon 0 12-16-2024 Creatinine [Mass/Vol] 0.75 mg/dL Normal 0.70-1.20 [facility] Comment on above: Performed By: #### L 501.5294, L501.1000, L501.1105 #### [facility] [address] [place], [address] GFR/1.73 sq M.predicted among non-blacks MDRD (S/P/Bld) [Vol rate/Area] 91 mL/min/{1.73_m2} Normal >60 [facility] Comment on above: Result Comment: mL/m in/1.73m2 CKD-EPI Creatinine Equation (2020) Performed By: #### L 501.5294, L501.1000, L501.1105 #### [facility] [address] [place], [address] Serum creatinine measurement (mass/volume)on 12-16-2024 Creatinine [Mass/Vol] 0.75 mg/dL 0.70-1.20 [facility] Serum or plasma urea nitroge n measurement (mass/volume)on 12-16-2024 Urea nitrogen [Mass/Vol] 12 mg/dL -19 [facility] Sodium levelon 12-16-2024 Sodium [Moles/Vol] 135 mmol/L 133-145 [facility] CBC AND ELECTRONIC DIFFon Basophils (Bld) [#/Vol] K/uL 0.00 - 0.15 K/uL [facility] Basophils/100 WBC (Bld) 1.5 % [facility] Differential cell count method Nom (Bld) Electronic Differential [facility] Eosinophils (Bld) [#/Vol] 0.2 10*3/uL 0.00 - 0.42 K/uL [facility] Eosinophils/100 WBC (Bld) 9.9 % [facility] Erythrocyte distribution width (RBC) [Ratio] 14.5 % 10.8 - 14.9 % [facility] Hematocrit (Bld) [Volume fraction] 33.1 % Low 34.9 - 44.3 % [facility] Hemoglobin (Bld) [Mass/Vol] 11.7 g/dL 11.4 - 15.2 g/dL [facility] Immature granulocytes (Bld) [#/Vol] K/uL NINF - 0.08 K/uL [facility] Immature granulocytes/100 WBC (Bld) 0 % [facility] Interpretation and review of laboratory results Abnormal [facility] Lymphocytes (Bld) [#/Vol] 0.56 10*3/uL Low 1.16 - 3.51 K/uL [facility] Lymphocytes/100 WBC (Bld) 27.6 % [facility] MCH (RBC) [Entitic mass] 31.3 pg 25.9 - 33.[address] [facility] MCHC (RBC) [Mass/Vol] 35.3 g/dL 31.4 - 35.9 g/dL [facility] MCV (RBC) [Entitic vol] 88.5 fL 79.6 - 97.[address] [facility] Monocytes (Bld) [#/Vol] 0.14 10*3/uL Low 0.22 - 0.87 K/uL [facility] Monocytes/100 WBC (Bld) 6.9 % [facility] Neutrophils (Bld) [#/Vol] 1.1 10*3/uL Low 1.64 - 7.28 K/uL [facility] Nucleated RBC/100 WBC (Bld) [Ratio] 0 % NINF [facility] Platelet mean volume (Bld) [Entitic vol] 8.6 fL 8.5 - 12.[address] [facility] Platelets (Bld) [#/Vol] 161 10*3/uL 150 - 393 K/uL [facility] RBC (Bld) [#/Vol] 3.74 10*6/uL Low [facility] Segmented neutrophils/100 WBC (Bld) 54.1 % [facility] WBC (Bld) [#/Vol] 2.03 10*3/uL Low 3.99 - 11.19 K/uL [facility] Abs Baso Auto < Normal 0.00-0.15 [facility] Comment on above: Performed By: #### L [id number] ####[facility] (DEFAULT)[address] [place] [address] Basophils/100 WBC (Bld) 1.5 % Normal [facility] Comment on above: Performed By: #### L [id number] ####[facility] (DEFAULT)[address] [place] [address] DIFF STATUS Electronic Differential Normal [facility] Comment on above: Performed By: #### L [id number] ####[facility] (DEFAULT)[address] [place] [address] Eosinophils (Bld) [#/Vol] 0.20 10*3/uL Normal 0.00-0.42 [facility] Comment on above: Performed By: #### L [id number] ####[facility] (DEFAULT)[address] [place] [address] Eosinophils/100 WBC (Bld) 9.9 % Normal [facility] Comment on above: Performed By: #### L [id number] ####[facility] (DEFAULT)[address] [place] [address] Hematocrit (Bld) [Volume fraction] 33.1 % Low 34.9-44.3 [facility] Comment on above: Performed By: #### L [id number] ####[facility] (DEFAULT)[address] [place] [address], [place] [address] Hemoglobin (Bld) [Mass/Vol] 11.7 g/dL Normal 11.4-15.2 [facility] Comment on above: Performed By: #### L [id number] ####[facility] (DEFAULT)[address] [place] [address], [place] [address] Immature Grans % 0.0 % Normal [facility] Comment on above: Performed By: #### L [id number] ####[facility] (DEFAULT)[address] [place] [address], [place] [address] Immature Grans Absolute < Normal <=0.08 [facility] Comment on above: Performed By: #### L [id number] ####[facility] (DEFAULT)[address] [place] [address] Lymphocytes (Bld) [#/Vol] 0.56 10*3/uL Low 1.16-3.51 [facility] Comment on above: Performed By: #### L [id number] ####[facility] (DEFAULT)[address] [place] [address], [place] [address] Lymphocytes/100 WBC (Bld) 27.6 % Normal [facility] Comment on above: Performed By: #### L [id number] ####[facility] (DEFAULT)[address] [place] [address], [place] [address] MCV (RBC) [Entitic vol] 88.5 fL Normal 79.6-97.7 [facility] Comment on above: Performed By: #### L [id number] ####[facility] (DEFAULT)[address] [place] [address], [place] [address] Mean Cell Hgb 31.3 pg Normal 25.9-33.9 [facility] Comment on above: Performed By: #### L [id number] ####[facility] (DEFAULT)[address] [place] [address] Mean Cell Hgb Conc 35.3 g/dL Normal 31.4-35.9 [facility] Comment on above: Performed By: #### L [id number] ####[facility] (DEFAULT)[address] [place] [address] Monocytes (Bld) [#/Vol] 0.14 10*3/uL Low 0.22-0.87 [facility] Comment on above: Performed By: #### L [id number] ####[facility] (DEFAULT)[address] [place] [address] Monocytes/100 WBC (Bld) 6.9 % Normal [facility] Comment on above: Performed By: #### L [id number] ####[facility] (DEFAULT)[address] [place] [address] Nucleated RBC 0.0 /100 WBC Normal <=0.2 [facility] Comment on above: Performed By: #### L [id number] ####[facility] (DEFAULT)[address] [place] [address] Platelet mean volume (Bld) [Entitic vol] 8.6 fL Normal 8.5-12.2 [facility] Comment on above: Performed By: #### L [id number] ####[facility] (DEFAULT)[address] [place] [address] Platelets (Bld) [#/Vol] 161 10*3/uL Normal 150-393 [facility] Comment on above: Performed By: #### L [id number] ####[facility] (DEFAULT)[address] [place] [address] RBC (Bld) [#/Vol] 3.74 10*6/uL Low 3.91-5.04 [facility] Comment on above: Performed By: #### L [id number] ####[facility] (DEFAULT)[address] [place] [address] RBC Distribution 14.5 % Normal 10.8-14.[address] [facility] Comment on above: Performed By: #### L [id number] ####[facility] (DEFAULT)[address] [place] [address] Segs + Bands Auto 54.1 % Normal [facility] Comment on above: Performed By: #### L [id number] ####[facility] (DEFAULT)[address] [place] [address] Segs + Bands,Absolute Auto 1.10 K/uL Low 1.64-7.28 [facility] Comment on above: Performed By: #### L [id number] ####[facility] (DEFAULT)[address] [place] [address] WBC (Bld) [#/Vol] 2.03 10*3/uL Low 3.99-11.19 [facility] Comment on above: Performed By: #### L [id number] ####[facility] (DEFAULT)[address] [place] [address], [place] [address] CMPN WITHOUT GLUCOSEon 12-13 Albumin [Mass/Vol] 4.4 g/dL 3.5 - 5.0 g/dL [facility] ALP [Catalytic activity/Vol] 79 U/L 32 - 126 U/L [facility] ALT [Catalytic activity/Vol] 17 U/L 9 - 48 U/L [facility] Anion gap [Moles/Vol] 10 mmol/L 7 - 17 mmol/L [facility] AST [Catalytic activity/Vol] 14 U/L 10 - 39 U/L [facility] Bilirubin [Mass/Vol] 0.6 mg/dL NINF - 1.5 mg/dL [facility] Calcium [Mass/Vol] 9.1 mg/dL 8.6 - 10. 5 mg/dL [facility] Chloride [Moles/Vol] 96 mmol/L Low 98 - 10 8 mmol/L [facility] CO2 [Moles/Vol] 26 mmol/L 21 - 31 mmol/L [facility] Creatinine [Mass/Vol] 0.92 mg/dL 0.50 - 1.20 mg/dL [facility] eGFR, CKD-EPI, Female 70 - PINF [facility] Comment on above: Reported eGFR is bas ed on the CKD-EPI 2020 equation using creatinine, age, and sex. Interpretation and review of laboratory results Abnormal [facility] Potassium [Moles/Vol] 4.1 mmol/L 3.5 - 5.0 mmol/L [facility] Protein [Mass/Vol] 6.6 g/dL 6.4 - 8.3 g/dL [facility] Sodium [Moles/Vol] 128 mmol/L Low 135 - 145 mmol/L [facility] Urea nitrogen [Mass/Vol] 15 mg/dL 7 - 25 mg/dL [facility] Urea nitrogen/Creatinine [Mass ratio] 16 mg/mg [facility] Albumin [Mass/Vol] 4.4 g/dL Normal 3.5-5.0 [facility] Comment on above: Performed By: #### C DYANG MGO ####[facility] (DEFAULT)[address] [place] [address] ALP [Catalytic activity/Vol] 79 U/L Normal 32-126 [facility] Comment on above: Performed By: #### C MPNG, MGO ####[facility] (DEFAULT)[address] [place] [address] ALT [Catalytic activity/Vol] 17 U/L Normal 9-48 [facility] Comment on above: Performed By: #### C MPNG, MGO ####[facility] (DEFAULT)[address] [place] [address] Anion gap [Moles/Vol] 10 mmol/L Normal 7-17 [facility] Comment on above: Performed By: #### C MPNG, MGO ####[facility] (DEFAULT)[address] [place] [address] AST [Catalytic activity/Vol] 14 U/L Normal 10-39 [facility] Comment on above: Performed By: #### C MPNG, MGO ####[facility] (DEFAULT)[address] [place] [address] Bilirubin [Mass/Vol] 0.6 mg/dL Normal <1.5 [facility] Comment on above: Performed By: #### C MPNG, MGO ####[facility] (DEFAULT)[address] [place] [address] Calcium [Mass/Vol] 9.1 mg/dL Normal 8.6-10.5 [facility] Comment on above: Performed By: #### C MPNG, MGO ####[facility] (DEFAULT)[address] [place] [address] Chloride [Moles/Vol] 96 mmol/L Low 98-108 [facility] Comment on above: Performed By: #### C MPNG, MGO ####[facility] (DEFAULT)[address] [place] [address] CO2 [Moles/Vol] 26 mmol/L Normal 21-31 [facility] Comment on above: Performed By: #### C MPNG, MGO ####[facility] (DEFAULT)[address] [place] [address] Creatinine [Mass/Vol] 0.92 mg/dL Normal 0.50-1.20 [facility] Comment on above: Performed By: #### C MPNG, MGO ####[facility] (DEFAULT)[address] [place] [address] GFR/1.73 sq M.predicted among non-blacks MDRD (S/P/Bld) [Vol rate/Area] 71 mL/min/{1.73_m2} Normal >=60 [facility] Comment on above: Result Comment: Repo rted eGFR is based on the CKD-EPI 2020 equation using creatinine, age, and sex. Performed By: #### C MPNG, MGO ####[facility] (DEFAULT)[address] [place] [address] Potassium [Moles/Vol] 4.1 mmol/L Normal 3.5-5.0 [facility] Comment on above: Performed By: #### C MPNG, MGO ####[facility] (DEFAULT)[address] [place] [address] Protein [Mass/Vol] 6.6 g/dL Normal 6.4-8.3 [facility] Comment on above: Performed By: #### C MPNG, MGO ####[facility] (DEFAULT)[address] [place] [address] Sodium [Moles/Vol] 128 mmol/L Low 135-145 [facility] Comment on above: Performed By: #### C MPNG, MGO ####[facility] (DEFAULT)[address] [place] [address] Urea nitrogen [Mass/Vol] 15 mg/dL Normal 7-25 [facility] Comment on above: Performed By: #### C MPNG, MGO ####[facility] (DEFAULT)[address] [place] [address] Urea nitrogen/Creatinine [Mass ratio] 16 mg/mg Normal [facility] Comment on above: Performed By: #### C MPNG, MGO ####[facility] (DEFAULT)[address] [place] [address] MAGNESIUMon 12-13-2024 Interpretation and review of laboratory results Normal [facility] Magnesium [Mass/Vol] 2 mg/dL 1.6 - 2 .6 mg/dL [facility] Magnesium [Mass/Vol] 2.0 mg/dL Normal 1.6-2.6 [facility] Comment on above: Performed By: #### C MPNG, MGO ####[facility] (DEFAULT)[address] [place] [address] OSMOLALITYon 12-13-2024 Interpretation and review of laboratory results Abnormal [facility] Osmolality [Osmolality] 266 mosm/kg Low [facility] Osmolality, Serum 266 mOsm/kg Low 278-305 [facility] Comment on above: Performed By: #### D 25OH, OSMO ####[facility] (DEFAULT)[address] [place] [address] OSMOLALITY, URINEon 12-14-19 Interpretation and review of laboratory results Normal [facility] Osmolality (U) [Osmolality] 413 mosm/kg [facility] Osmolality, Urine 413 mOsm/kg Normal 300-900 [facility] Comment on above: Performed By: #### U OSMR ####[facility] (DEFAULT)[address] [place] [address] SODIUMon 12-13-2024 Interpretation and review of laboratory results Abnormal [facility] Sodium [Moles/Vol] 129 mmol/L Low 135 - 145 mmol/L [facility] Sodium [Moles/Vol] 129 mmol/L Low 135-145 [facility] Comment on above: Performed By: #### N AO ####[facility] (DEFAULT)[address] [place] [address] SODIUM, RANDOM URINEon 12-13 Sodium (24H U) [Moles/Vol] 65 mmol/L [facility] The reference range has not been established for random urine specimens. The test result should be integrated into the clinical context for interpretation. [facility] Sodium (U) [Moles/Vol] 65 mmol/L Normal [facility] Comment on above: Order Comment: The r eference range has not been established for random urine specimens. The test result should be integrated into the clinical context for interpretation. Performed By: #### U ISIS ####[facility] (DEFAULT)[address] [place] [address] VITAMIN D (25-HYDROXY,TOTAL) on 12-13-2024 Interpretation and review of laboratory results Normal [facility] Vitamin D+Metabolites [Mass/Vol] 31.7 ng/mL 30.0 - 100.0 ng/mL [facility] Comment on above: <10 Deficiency 10-29 Insufficiency 30-100 Optimal Level >100 Possible Toxicity Vitamin D values hav e been shown to be falsely decreased in lipemic samples and should be interpreted with caution. [facility] 25-OH Vitamin D Total 31.7 ng/mL Normal 30.0-100.0 [facility] Comment on above: Order Comment: Vitam in D values have been shown to be falsely decreased in lipemic samples and should be interpreted with caution. Result Comment: <10 [id number] Optimal Level>100 Possible Toxicity Performed By: #### D 25OH, OSMO ####[facility] (DEFAULT)[address] [place] [address] Radiation Oncology Visiton 0 12-02-2024 Radiation Oncology Visit [address] [address] OFFICE VISIT Date of Service: 12/02/24 0932 MR#: [id number] Acct: [id number] Name: MILAD L[address] Rep #: [id number] : 1965 From: Thomas Hanson DO Age/Sex: 59/F Location: [facility] [place] Status: Signed Intake Vital Signs 11/04/24 15:07 12/02/24 09:33 Height 5 ft 5 in 5 ft 5 in Weight: 239 lb 243 lb 4 oz BMI 39.7 40.4 BP 136/74 H Blood Pressure Location Lt brachial Position Sitting Respiration 18 15 Pulse 76 78 Pulse Source Monitor Monitor Temp 97.2 F L 98.2 F Temperature Source Temporal Artery Temporal Artery Pulse Oximetry (%) 94 98 Oxygen Delivery Method room air room air Intake Visit Reasons: 1 MONTH F/U POST RT Allergies metronidazole (From Flagyl) Allergy (Verified 12/02/24 09:35) Hives Medications ???Medication ???Instructions ???Recorded ???Confirmed ???Type hydrochlorothiazide 25 mg tablet 25 mg PO DAILY 09/09/21 12/02/24 H istory levothyroxine 50 mcg tablet 1 tablet PO DAILY 09/09/21 5 History acetaminophen 325 mg tablet 650 mg PO Q6H PRN 08/15/24 5 History ergocalciferol (vitamin D2) 1,250 1 unit PO .q other week 08/15/24 12/02/24 History mcg (50,000 unit) capsule gabapentin 300 mg capsule 300 mg PO TID 08/15/24 12/02/24 Hi story ibuprofen 400 mg tablet 400 mg PO Q8H PRN 08/15/24 5 History lidocaine-prilocaine 2.5 %-2.5 % 1 applic topical QDAY PRN 08/15/24 12/02/24 History topical cream loratadine 10 mg tablet 10 mg PO QDAY 08/15/24 12/02/24 Hi story magnesium oxide 400 mg (241.3 mg 400 mg PO QDAY 08/15/24 12/02/24 H istory magnesium) tablet omega-3 650 mg-dha 400 mg-epa 200 1 cap PO QDAY 08/15/24 12/02/24 H istory mg-fish oil-vit D3 300 unit capsule vitamin B complex 1 cap PO QDAY 08/15/24 12/02/24 Hi story vitamin E (dl, acetate) 180 mg 360 mg PO QDAY 08/15/24 12/02/24 H istory (400 unit) capsule zolpidem 5 mg tablet 5 mg PO QHS 08/15/24 12/02/24 Hist ory silver sulfadiazine 1 % topical 1 applic topical BID #85 grams 07/2712/02/24 Rx cream (Silvadene) abemaciclib 100 mg tablet 100 mg PO BID 12/02/24 12/02/24 Hi story (Verzenio) anastrozole 1 mg tablet 1 mg PO QDAY 12/02/24 12/02/24 His tory lisinopril 10 mg tablet 10 mg PO QDAY 12/02/24 12/02/24 Hi story loperamide 2 mg capsule 2 mg PO Q6H PRN 12/02/24 12/02/24 History ondansetron HCl 4 mg tablet 4 mg PO Q6H 12/02/24 12/02/24 Hist ory tirzepatide (weight loss) 2.5 2.5 mg subcut QWEEK 12/02/2412/02 History mg/0.5 mL subcutaneous pen injector (Zepbound) zoledronic acid 4 mg intravenous mg .Route 12/02/24 12/02/24 Histor y solution [facility] Medical History Uterine fibroid Goiter 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+] Malignant neoplasm of overlapping sites of right female breast Invasive ductal carcinoma of right breast Post-menopausal Wears glasses Anxiety Alcohol use Thyroid disease Arthritis Fatty liver Back pain Injury of back Non-smoker Leg cramps History of edema Hypertension History of irregular heartbeat Home Medications ???Medication ???Instructions ???Recorded ???Last Taken ???Type hydrochlorothiazide 25 mg tablet 25 mg PO DAILY 09/09/21 Unknown Hi story levothyroxine 50 mcg tablet 1 tablet PO DAILY 09/09/21 Unknown History acetaminophen 325 mg tablet 650 mg PO Q6H PRN 08/15/24 Unknown History ergocalciferol (vitamin D2) 1,250 1 unit PO .q other week 08/15/24 Unknown History mcg (50,000 unit) capsule gabapentin 300 mg capsule 300 mg PO TID 08/15/24 Unknown His tory ibuprofen 400 mg tablet 400 mg PO Q8H PRN 08/15/24 Unknown History lidocaine-prilocaine 2.5 %-2.5 % 1 applic topical QDAY PRN 08/15/24 Unknown History topical cream loratadine 10 mg tablet 10 mg PO QDAY 08/15/24 Unknown His tory magnesium oxide 400 mg (241.3 mg 400 mg PO QDAY 08/15/24 Unknown Hi story magnesium) tablet omega-3 650 mg-dha 400 mg-epa 200 1 cap PO QDAY 08/15/24 Unknown Hi story mg-fish oil-vit D3 300 unit capsule vitamin B complex 1 cap PO QDAY 08/15/24 Unknown His tory vitamin E (dl, acetate) 180 mg 360 mg PO QDAY 08/15/24 Unknown Hi story (400 unit) capsule zolpidem 5 mg tablet 5 mg PO QHS 08/15/24 Unknown Histo ry silver sulfadiazine 1 % topical 1 applic topical BID #85 grams 07/27 Unknown Rx cream (Silvadene) abemaciclib 100 mg tablet 100 mg PO BID 12/02/24 Unknown His tory (Verzenio) anastrozole 1 mg tablet 1 mg PO QDAY 12/02/24 Unknown Hist ory lisinopril 10 mg tablet 10 mg PO QDAY 12/02/24 Unknown His tory loperamide 2 mg capsule 2 mg PO Q6H PRN 12/02/24 Unknown H (more content not included)... Normal [facility] VENOUS ACCESS PORT REMOVALon 12-02-2024 VENOUS ACCESS PORT REMOVAL Normal [facility] CBC AND ELECTRONIC DIFFon Basophils (Bld) [#/Vol] K/uL 0.00 - 0.15 K/uL [facility] Basophils/100 WBC (Bld) 0.8 % [facility] Differential cell count method Nom (Bld) Electronic Differential [facility] Eosinophils (Bld) [#/Vol] 0.56 10*3/uL High 0.00 - 0.42 K/uL [facility] Eosinophils/100 WBC (Bld) 22 % [facility] Erythrocyte distribution width (RBC) [Ratio] 13.8 % 10.8 - 14.9 % [facility] Hematocrit (Bld) [Volume fraction] 34.9 % 34.9 - 44.3 % [facility] Hemoglobin (Bld) [Mass/Vol] 12 g/dL 11.4 - 15.2 g/dL [facility] Immature granulocytes (Bld) [#/Vol] K/uL NINF - 0.08 K/uL [facility] Immature granulocytes/100 WBC (Bld) 0.8 % [facility] Interpretation and review of laboratory results Abnormal [facility] Lymphocytes (Bld) [#/Vol] 0.47 10*3/uL Low 1.16 - 3.51 K/uL [facility] Lymphocytes/100 WBC (Bld) 18.5 % [facility] MCH (RBC) [Entitic mass] 29.9 pg 25.9 - 33.[address] [facility] MCHC (RBC) [Mass/Vol] 34.4 g/dL 31.4 - 35.9 g/dL [facility] MCV (RBC) [Entitic vol] 86.8 fL 79.6 - 97.[address] [facility] Monocytes (Bld) [#/Vol] 0.17 10*3/uL Low 0.22 - 0.87 K/uL [facility] Monocytes/100 WBC (Bld) 6.7 % [facility] Neutrophils (Bld) [#/Vol] 1.3 10*3/uL Low 1.64 - 7.28 K/uL [facility] Nucleated RBC/100 WBC (Bld) [Ratio] 0 % NINF [facility] Platelet mean volume (Bld) [Entitic vol] 9.2 fL 8.5 - 12.[address] [facility] Platelets (Bld) [#/Vol] 158 10*3/uL 150 - 393 K/uL [facility] RBC (Bld) [#/Vol] 4.02 10*6/uL [facility] Segmented neutrophils/100 WBC (Bld) 51.2 % [facility] WBC (Bld) [#/Vol] 2.54 10*3/uL Low 3.99 - 11.19 K/uL [facility] Abs Baso Auto < Normal 0.00-0.15 [facility] Comment on above: Performed By: #### L [id number] ####[facility] (DEFAULT)[address] [place] [address] Basophils/100 WBC (Bld) 0.8 % Normal [facility] Comment on above: Performed By: #### L [id number] ####[facility] (DEFAULT)[address] [place] [address] DIFF STATUS Electronic Differential Normal [facility] Comment on above: Performed By: #### L [id number] ####[facility] (DEFAULT)[address] [place] [address] Eosinophils (Bld) [#/Vol] 0.56 10*3/uL High 0.00-0.42 [facility] Comment on above: Performed By: #### L [id number] ####[facility] (DEFAULT)[address] [place] [address] Eosinophils/100 WBC (Bld) 22.0 % Normal [facility] Comment on above: Performed By: #### L [id number] ####[facility] (DEFAULT)[address] [place] [address] Hematocrit (Bld) [Volume fraction] 34.9 % Normal 34.9-44.3 [facility] Comment on above: Performed By: #### L [id number] ####[facility] (DEFAULT)[address] [place] [address] Hemoglobin (Bld) [Mass/Vol] 12.0 g/dL Normal 11.4-15.2 [facility] Comment on above: Performed By: #### L [id number] ####[facility] (DEFAULT)[address] [place] [address] Immature Grans % 0.8 % Normal [facility] Comment on above: Performed By: #### L [id number] ####[facility] (DEFAULT)[address] [place] [address] Immature Grans Absolute < Normal <=0.08 [facility] Comment on above: Performed By: #### L [id number] ####[facility] (DEFAULT)[address] [place] [address] Lymphocytes (Bld) [#/Vol] 0.47 10*3/uL Low 1.16-3.51 [facility] Comment on above: Performed By: #### L [id number] ####[facility] (DEFAULT)[address] [place] [address] Lymphocytes/100 WBC (Bld) 18.5 % Normal [facility] Comment on above: Performed By: #### L [id number] ####[facility] (DEFAULT)[address] [place] [address] MCV (RBC) [Entitic vol] 86.8 fL Normal 79.6-97.7 [facility] Comment on above: Performed By: #### L [id number] ####[facility] (DEFAULT)[address] [place] [address] Mean Cell Hgb 29.9 pg Normal 25.9-33.9 [facility] Comment on above: Performed By: #### L [id number] ####[facility] (DEFAULT)[address] [place] [address] Mean Cell Hgb Conc 34.4 g/dL Normal 31.4-35.9 [facility] Comment on above: Performed By: #### L [id number] ####[facility] (DEFAULT)[address] [place] [address] Monocytes (Bld) [#/Vol] 0.17 10*3/uL Low 0.22-0.87 [facility] Comment on above: Performed By: #### L [id number] ####[facility] (DEFAULT)[address] [place] [address] Monocytes/100 WBC (Bld) 6.7 % Normal [facility] Comment on above: Performed By: #### L [id number] ####[facility] (DEFAULT)[address] [place] [address] Nucleated RBC 0.0 /100 WBC Normal <=0.2 [facility] Comment on above: Performed By: #### L [id number] ####[facility] (DEFAULT)[address] [place] [address] Platelet mean volume (Bld) [Entitic vol] 9.2 fL Normal 8.5-12.2 [facility] Comment on above: Performed By: #### L [id number] ####[facility] (DEFAULT)[address] [place] [address] Platelets (Bld) [#/Vol] 158 10*3/uL Normal 150-393 [facility] Comment on above: Performed By: #### L [id number] ####[facility] (DEFAULT)[address] [place] [address] RBC (Bld) [#/Vol] 4.02 10*6/uL Normal 3.91-5.04 [facility] Comment on above: Performed By: #### L [id number] ####[facility] (DEFAULT)[address] [place] [address] RBC Distribution 13.8 % Normal 10.8-14.[address] [facility] Comment on above: Performed By: #### L [id number] ####[facility] (DEFAULT)[address] [place] [address] Segs + Bands Auto 51.2 % Normal [facility] Comment on above: Performed By: #### L [id number] ####[facility] (DEFAULT)[address] [place] [address] Segs + Bands,Absolute Auto 1.30 K/uL Low 1.64-7.28 [facility] Comment on above: Performed By: #### L [id number] ####[facility] (DEFAULT)[address] [place] [address] WBC (Bld) [#/Vol] 2.54 10*3/uL Low 3.99-11.19 [facility] Comment on above: Performed By: #### L [id number] ####[facility] (DEFAULT)[address] [place] [address] COMPREHENSIVE METABOLIC PANE Jaskaran 11-26-2024 Albumin [Mass/Vol] 4 g/dL 3.5 - 5.0 g/dL [facility] ALP [Catalytic activity/Vol] 69 U/L 32 - 126 U/L [facility] ALT [Catalytic activity/Vol] 14 U/L 9 - 48 U/L [facility] Anion gap [Moles/Vol] 8 mmol/L 7 - 17 mmol/L [facility] AST [Catalytic activity/Vol] 12 U/L 10 - 39 U/L [facility] Bilirubin [Mass/Vol] 0.6 mg/dL NINF - 1.5 [facility] Calcium [Mass/Vol] 9 mg/dL 8.6 - 10. 5 mg/dL [facility] Chloride [Moles/Vol] 103 mmol/L 98 - 10 8 mmol/L [facility] CO2 [Moles/Vol] 30 mmol/L 21 - 31 mmol/L [facility] Creatinine [Mass/Vol] 0.78 mg/dL 0.50 - 1.20 mg/dL [facility] eGFR, CKD-EPI, Female 87 - PINF [facility] Comment on above: Reported eGFR is bas ed on the CKD-EPI 2020 equation using creatinine, age, and sex. Glucose [Mass/Vol] 86 mg/dL 70 - 179 mg/dL [facility] Osmolality Calc [Osmolality] [address] [facility] Potassium [Moles/Vol] 4.3 mmol/L 3.5 - 5.0 mmol/L [facility] Protein [Mass/Vol] 6.4 g/dL 6.4 - 8.3 g/dL [facility] Sodium [Moles/Vol] 137 mmol/L 135 - 145 mmol/L [facility] Urea nitrogen [Mass/Vol] 13 mg/dL 7 - 25 mg/dL [facility] Urea nitrogen/Creatinine [Mass ratio] 17 mg/mg [facility] Albumin [Mass/Vol] 4.0 g/dL Normal 3.5-5.0 [facility] Comment on above: Performed By: #### C MPN ####[facility] (DEFAULT)[address] [place] [address] ALP [Catalytic activity/Vol] 69 U/L Normal 32-126 [facility] Comment on above: Performed By: #### C MPN ####[facility] (DEFAULT)[address] [place] [address] ALT [Catalytic activity/Vol] 14 U/L Normal 9-48 [facility] Comment on above: Performed By: #### C MPN ####[facility] (DEFAULT)[address] [place] [address] Anion gap [Moles/Vol] 8 mmol/L Normal 7-17 [facility] Comment on above: Performed By: #### C MPN ####[facility] (DEFAULT)[address] [place] [address] AST [Catalytic activity/Vol] 12 U/L Normal 10-39 [facility] Comment on above: Performed By: #### C MPN ####[facility] (DEFAULT)[address] [place] [address] Bilirubin [Mass/Vol] 0.6 mg/dL Normal <1.5 [facility] Comment on above: Performed By: #### C MPN ####[facility] (DEFAULT)[address] [place] [address] Calcium [Mass/Vol] 9.0 mg/dL Normal 8.6-10.5 [facility] Comment on above: Performed By: #### C MPN ####[facility] (DEFAULT)[address] [place] [address] Chloride [Moles/Vol] 103 mmol/L Normal 98-108 [facility] Comment on above: Performed By: #### C MPN ####[facility] (DEFAULT)[address] [place] [address] CO2 [Moles/Vol] 30 mmol/L Normal 21-31 [facility] Comment on above: Performed By: #### C MPN ####[facility] (DEFAULT)[address] [place] [address], [place] [address] Creatinine [Mass/Vol] 0.78 mg/dL Normal 0.50-1.20 [facility] Comment on above: Performed By: #### C MPN ####[facility] (DEFAULT)[address] [place] [address], [place] [address] GFR/1.73 sq M.predicted among non-blacks MDRD (S/P/Bld) [Vol rate/Area] 87 mL/min/{1.73_m2} Normal >=60 [facility] Comment on above: Result Comment: Repo rted eGFR is based on the CKD-EPI 2020 equation using creatinine, age, and sex. Performed By: #### C MPN ####[facility] (DEFAULT)[address] [place] [address] Glucose [Mass/Vol] 86 mg/dL Normal Nonfastin g : 70-179 mg/dL; Fastin-99 [facility] Comment on above: Performed By: #### C MPN ####[facility] (DEFAULT)[address] [place] [address], [place] [address] Osmolality [Osmolality] 287 mosm/kg Normal 278-305 [facility] Comment on above: Performed By: #### C MPN ####[facility] (DEFAULT)[address] [place] [address], [place] [address] Potassium [Moles/Vol] 4.3 mmol/L Normal 3.5-5.0 [facility] Comment on above: Performed By: #### C MPN ####[facility] (DEFAULT)[address] [place] [address] Protein [Mass/Vol] 6.4 g/dL Normal 6.4-8.3 [facility] Comment on above: Performed By: #### C MPN ####[facility] (DEFAULT)[address] [place] [address] Sodium [Moles/Vol] 137 mmol/L Normal 135-145 [facility] Comment on above: Performed By: #### C MPN ####[facility] (DEFAULT)[address] [place] [address] Urea nitrogen [Mass/Vol] 13 mg/dL Normal 7-25 [facility] Comment on above: Performed By: #### C MPN ####[facility] (DEFAULT)[address] [place] [address] Urea nitrogen/Creatinine [Mass ratio] 17 mg/mg Normal [facility] Comment on above: Performed By: #### C MPN ####[facility] (DEFAULT)[address] [place] [address] GENERAL PROCEDUREon 11-27-19 25 Kaylin Mai MD - 11/26/2024 11:56 AM EDT INTERVENTIONAL RADIOLOGY BRIEF PROCEDURE NOTE PROCEDURE PERFORMED BY: Dr. Mai PROCEDURE DATE: 11/26/2024 11:56 AM PRE PROCEDURE DIAGNOSIS: History of breast cancer; patient is finished with treatment and no longer needs the port. POST PROCEDURE DIAGNOSIS: History of breast cancer; patient is finished with treatment and no longer needs the port. PROCEDURE: Port Removal CONSENT: Informed consent was obtained prior to the procedure after discussion of the risks, benefits, and alternatives and expected outcomes were discussed; consent placed in chart. UNIVERSAL PROTOCOL: Preprocedure verification is complete- patient verified and consents confirmed. ANESTHESIA: Moderate Sedation ESTIMATED BLOOD LOSS: < 5 mL FINDINGS: Nonpurulent port pocket, sutured closed in one layer. CONDITION: Stable. Patient tolerated procedure well. COMPLICATIONS: None. SPECIMEN: None IMPRESSION/PLAN: Successful port removal. [facility] Radiology Study observation (narrative) [facility] BONE DENSITY AXIAL (HIP, PEL VIS, SPINE)on 11-08-2024 BONE DENSITY AXIAL (HIP, PELVIS, SPINE) Normal [facility] CBC AND ELECTRONIC DIFFon Abs Baso Auto < Normal 0.00-0.15 [facility] Comment on above: Performed By: #### L [id number] ####[facility] (DEFAULT)[address] [place] [address] Basophils/100 WBC (Bld) 0.8 % Normal [facility] Comment on above: Performed By: #### L [id number] ####[facility] (DEFAULT)[address] [place] [address] DIFF STATUS Electronic Differential Normal [facility] Comment on above: Performed By: #### L [id number] ####[facility] (DEFAULT)[address] [place] [address] Eosinophils (Bld) [#/Vol] 0.56 10*3/uL High 0.00-0.42 [facility] Comment on above: Performed By: #### L [id number] ####[facility] (DEFAULT)[address] [place] [address] Eosinophils/100 WBC (Bld) 15.5 % Normal [facility] Comment on above: Performed By: #### L [id number] ####[facility] (DEFAULT)[address] [place] [address] Hematocrit (Bld) [Volume fraction] 39.0 % Normal 34.9-44.3 [facility] Comment on above: Performed By: #### L [id number] ####[facility] (DEFAULT)[address] [place] [address] Hemoglobin (Bld) [Mass/Vol] 13.1 g/dL Normal 11.4-15.2 [facility] Comment on above: Performed By: #### L [id number] ####[facility] (DEFAULT)[address] [place] [address] Immature Grans % 0.0 % Normal [facility] Comment on above: Performed By: #### L [id number] ####[facility] (DEFAULT)[address] [place] [address] Immature Grans Absolute < Normal <=0.08 [facility] Comment on above: Performed By: #### L [id number] ####[facility] (DEFAULT)[address] [place] [address] Lymphocytes (Bld) [#/Vol] 0.59 10*3/uL Low 1.16-3.51 [facility] Comment on above: Performed By: #### L [id number] ####[facility] (DEFAULT)[address] [place] [address] Lymphocytes/100 WBC (Bld) 16.3 % Normal [facility] Comment on above: Performed By: #### L [id number] ####[facility] (DEFAULT)[address] [place] [address] MCV (RBC) [Entitic vol] 87.8 fL Normal 79.6-97.7 [facility] Comment on above: Performed By: #### L [id number] ####[facility] (DEFAULT)[address] [place] [address] Mean Cell Hgb 29.5 pg Normal 25.9-33.9 [facility] Comment on above: Performed By: #### L [id number] ####[facility] (DEFAULT)[address] [place] [address] Mean Cell Hgb Conc 33.6 g/dL Normal 31.4-35.9 [facility] Comment on above: Performed By: #### L [id number] ####[facility] (DEFAULT)[address] [place] [address] Monocytes (Bld) [#/Vol] 0.35 10*3/uL Normal 0.22-0.87 [facility] Comment on above: Performed By: #### L [id number] ####[facility] (DEFAULT)[address] [place] [address] Monocytes/100 WBC (Bld) 9.7 % Normal [facility] Comment on above: Performed By: #### L [id number] ####[facility] (DEFAULT)[address] [place] [address] Nucleated RBC 0.0 /100 WBC Normal <=0.2 [facility] Comment on above: Performed By: #### L [id number] ####[facility] (DEFAULT)[address] [place] [address] Platelet mean volume (Bld) [Entitic vol] 9.2 fL Normal 8.5-12.2 [facility] Comment on above: Performed By: #### L [id number] ####[facility] (DEFAULT)[address] [place] [address] Platelets (Bld) [#/Vol] 175 10*3/uL Normal 150-393 [facility] Comment on above: Performed By: #### L [id number] ####[facility] (DEFAULT)[address] [place] [address] RBC (Bld) [#/Vol] 4.44 10*6/uL Normal 3.91-5.04 [facility] Comment on above: Performed By: #### L [id number] ####[facility] (DEFAULT)[address] [place] [address] RBC Distribution 13.8 % Normal 10.8-14.[address] [facility] Comment on above: Performed By: #### L [id number] ####[facility] (DEFAULT)[address] [place] [address] Segs + Bands Auto 57.7 % Normal [facility] Comment on above: Performed By: #### L [id number] ####[facility] (DEFAULT)[address] [facility] [place] [address] Segs + Bands,Absolute Auto 2.08 K/uL Normal 1.64-7.28 [facility] Comment on above: Performed By: #### L [id number] ####[facility] (DEFAULT)[address] [place] [address] WBC (Bld) [#/Vol] 3.61 10*3/uL Low 3.99-11.19 [facility] Comment on above: Performed By: #### L [id number] ####[facility] (DEFAULT)[address] [place] [address] COMPREHENSIVE METABOLIC PANE Jaskaarn 11-08-2024 Albumin [Mass/Vol] 4.2 g/dL Normal 3.5-5.0 [facility] Comment on above: Performed By: #### C MPN ####[facility] (DEFAULT)[address] [place] [address] ALP [Catalytic activity/Vol] 78 U/L Normal 32-126 [facility] Comment on above: Performed By: #### C MPN ####[facility] (DEFAULT)[address] [place] [address] ALT [Catalytic activity/Vol] 17 U/L Normal 9-48 [facility] Comment on above: Performed By: #### C MPN ####[facility] (DEFAULT)[address] [place] [address] Anion gap [Moles/Vol] 10 mmol/L Normal 7-17 [facility] Comment on above: Performed By: #### C MPN ####[facility] (DEFAULT)[address] [place] [address] AST [Catalytic activity/Vol] 16 U/L Normal 10-39 [facility] Comment on above: Performed By: #### C MPN ####[facility] (DEFAULT)[address] [place] [address] Bilirubin [Mass/Vol] 0.6 mg/dL Normal <1.5 [facility] Comment on above: Performed By: #### C MPN ####[facility] (DEFAULT)[address] [place] [address] Calcium [Mass/Vol] 9.0 mg/dL Normal 8.6-10.5 [facility] Comment on above: Performed By: #### C MPN ####[facility] (DEFAULT)[address] [place] [address] Chloride [Moles/Vol] 103 mmol/L Normal 98-108 [facility] Comment on above: Performed By: #### C MPN ####[facility] (DEFAULT)[address] [place] [address] CO2 [Moles/Vol] 28 mmol/L Normal 21-31 [facility] Comment on above: Performed By: #### C MPN ####[facility] (DEFAULT)[address] [place] [address] Creatinine [Mass/Vol] 0.54 mg/dL Normal 0.50-1.20 [facility] Comment on above: Performed By: #### C MPN ####[facility] (DEFAULT)[address] [place] [address] eGFR, CKD-EPI, Female > Normal >=60 [facility] Comment on above: Result Comment: Repo rted eGFR is based on the CKD-EPI 2020 equation using creatinine, age, and sex. Performed By: #### C MPN ####[facility] (DEFAULT)[address] [place] [address] Glucose [Mass/Vol] 83 mg/dL Normal Nonfastin g : 70-179 mg/dL; Fastin-99 [facility] Comment on above: Performed By: #### C MPN ####[facility] (DEFAULT)[address] [place], [place] [address], [place] [address] Osmolality [Osmolality] 285 mosm/kg Normal 278-305 [facility] Comment on above: Performed By: #### C MPN ####[facility] (DEFAULT)[address] [place] [address] Potassium [Moles/Vol] 4.0 mmol/L Normal 3.5-5.0 [facility] Comment on above: Performed By: #### C MPN ####[facility] (DEFAULT)[address] [place] [address] Protein [Mass/Vol] 6.8 g/dL Normal 6.4-8.3 [facility] Comment on above: Performed By: #### C MPN ####[facility] (DEFAULT)[address] [place] [address] Sodium [Moles/Vol] 137 mmol/L Normal 135-145 [facility] Comment on above: Performed By: #### C MPN ####[facility] (DEFAULT)[address] [place] [address] Urea nitrogen [Mass/Vol] 11 mg/dL Normal 7-25 [facility] Comment on above: Performed By: #### C MPN ####[facility] (DEFAULT)[address] [place] [address] Urea nitrogen/Creatinine [Mass ratio] 20 mg/mg Normal [facility] Comment on above: Performed By: #### C MPN ####[facility] (DEFAULT)[address] [place] [address] DXA Skeletal system.axial Vi ews for bone densityon 11-08-2024 IMPRESSION: Based on BMD and WHO criteria diagnosis is consistent with osteopenia. * The T-score reflects standard deviations above (+) or below (-) a 20-40 year-old, , female, [place] population. At this age, it is assumed that peak bone mass is reached. * The Z-score reflects standard deviations above (+) or below (-) an age, sex, ethnicity, and weight-matched population. * Osteoporosis is defined as a skeletal disorder characterized by compromised bone strength predisposing to an increased risk of fracture. Bone strength reflects the integration of two main features: BMD and bone quality (SHE 2001;285:785-795). Any history of fragility fracture is suggestive of osteoporosis, regardless of the BMD data acquired in this study. * Secondary causes of bone loss should be evaluated if clinically indicated as the etiology of low BMD cannot be determined by BMD measurement alone. FRAX is an available clinical tool developed to evaluate fracture risk in patients using individualized clinical risk factors. The online calculator can be accessed at the following link: https://frax.shef.ac.uk/FRAX/ The physician who interpreted this study is a Certified Clinical Forest Officer by the International Society of Clinical Densitometry Prashant Sethi MD, CCD. OLOGY EXAM: BONE DENSITY A XIAL (HIP, PELVIS, SPINE) 11/08/2024 13:08 PM TECHNIQUE: DXA scanning using a [email or web address] Advance bone densitometer at the [facility] was performed on 11/08/2024 13:08 PM CLINICAL INDICATIONS: breast cancer, starting aromatase inhibitor RELEVANT CLINICAL HISTORY: C50.811:Malignant neoplasm of overlapping sites of right breast in female, estrogen receptor positive Z17.0:Malignant neoplasm of overlapping sites of right breast in female, estrogen receptor positive Z79.811:Aromatase inhibitor use COMPARISON: There are no prior studies performed on this bone densitometer with which to make comparison. FINDINGS: 1. Quality of the examination at the L1-4 lumbar spine: Adequate. 2. Quality of the examination at the dual hip: Adequate. BONE MINERAL DENSITY (BMD) CURRENT BONE MINERAL DENSITY (BMD) Region: g/cm2 T-Score Lumbar 1-4 Spine: 1.133 -0.4 Left Femoral Neck: 0.888 -1.1 Left Total Hip: 0.910 -0.8 Right Femoral Neck: 0.816 -1.6 Right Total Hip: 0.859 -1.2 RADIOLOGY Prashant Sethi MD - 11/08/2024 EXAM: BONE DENSITY AXIAL (HIP, PELVIS, SPINE) 11/08/2024 13:08 PM TECHNIQUE: DXA scanning using a [employer] Advance bone densitometer at the [facility] was performed on 11/08/2024 13:08 PM CLINICAL INDICATIONS: breast cancer, starting aromatase inhibitor RELEVANT CLINICAL HISTORY: C50.811:Malignant neoplasm of overlapping sites of right breast in female, estrogen receptor positive Z17.0:Malignant neoplasm of overlapping sites of right breast in female, estrogen receptor positive Z79.811:Aromatase inhibitor use COMPARISON: There are no prior studies performed on this bone densitometer with which to make comparison. FINDINGS: 1. Quality of the examination at the L1-4 lumbar spine: Adequate. 2. Quality of the examination at the dual hip: Adequate. BONE MINERAL DENSITY (BMD) CURRENT BONE MINERAL DENSITY (BMD) Region: g/cm2 T-Score Lumbar 1-4 Spine: 1.133 -0.4 Left Femoral Neck: 0.888 -1.1 Left Total Hip: 0.910 -0.8 Right Femoral Neck: 0.816 -1.6 Right Total Hip: 0.859 -1.2 IMPRESSION IMPRESSION: Based on BMD and WHO criteria diagnosis is consistent with osteopenia. * The T-score reflects standard deviations above (+) or below (-) a 20-40 year-old, , female, [place] population. At this age, it is assumed that peak bone mass is reached. * The Z-score reflects standard deviations above (+) or below (-) an age, sex, ethnicity, and weight-matched population. * Osteoporosis is defined as a skeletal disorder characterized by compromised bone strength predisposing to an increased risk of fracture. Bone strength reflects the integration of two main features: BMD and bone quality (SHE 2001;285:785-795). Any history of fragility fracture is suggestive of osteoporosis, regardless of the BMD data acquired in this study. * Secondary causes of bone loss should be evaluated if clinically indicated as the etiology of low BMD cannot be determined by BMD measurement alone. FRAX is an available clinical tool developed to evaluate fracture risk in patients using individualized clinical risk factors. The online calculator can be accessed at the following link: https://frax.shef.ac.uk/FRAX/ The physician who interpreted this study is a Certified Clinical Forest Officer by the International Society of Clinical Densitometry Prashant Sethi MD, CCD. [facility] Radiology Study observation (narrative) [facility] DXA Skeletal system.axial Vi ews for bone densityOrdered By: Prashant Sethi on 11-08-[address] [facility] Work Phone: TSHon 11-08-2024 TSH 3.061 uIU/mL Normal 0.550-4.78 0 [facility] Comment on above: Order Comment: This order contains result documents that were not sent. The result might be incomplete. Performed By: #### T SH ####[facility] (DEFAULT)[address] [place] [address] VITAMIN D (25-HYDROXY,TOTAL) on 11-08-2024 25-OH Vitamin D Total 29.5 ng/mL Low 30.0-100.0 [facility] Comment on above: Order Comment: Vitam in D values have been shown to be falsely decreased in lipemic samples and should be interpreted with caution. Result Comment: <10 [id number] Optimal Level>100 Possible Toxicity Performed By: #### D 25OH ####[facility] (DEFAULT)[address] [place] [address] Radiation Oncology Visiton 0 11-04-2024 Radiation Oncology Visit [facility] [address] [place] [address] OFFICE VISIT Date of Service: 11/04/24 1517 MR#: [id number] Acct: [id number] Name: MILAD LANE Rep #: [id number] : 1965 From: Thomas Valentin DO Age/Sex: 59/F Location: [facility] [place] Status: Signed End of Treatment Summary: Diagnosis: iMlad Lane is a 59 year-old female diagnosed with clinical stage IIIC (cT2 cN3b M0, ypT0 ypN0) grade 3 invasive ductal carcinoma (ER > 95%, VA 32%, HER2 1???2+ IHC, not amplified on FISH) of the right breast status post screening mammography (01/12/2024), diagnostic right breast mammogram and ultrasound of right breast and axilla (01/19/2024), evaluation by surgery at [facility] (02/05/2024), evaluation by plastic surgery at [facility] (02/08/2024), evaluation by medical oncology at [facility] (02/09/2024), completion of CT chest/abdomen/pelvis with contrast (02/13/2024), completion of bone scan (02/13/2024), MRI breast (02/21/2024), and MRI abdomen (02/25/2024), completion of dd ACT (02/23/2024 ??? 06/28/2024), bilateral breast MRI (07/11/2024), and right lumpectomy and SLNBx (08/09/2024). Oncologic History: 01/12/2024: Patient completed screening mammography.??? This demonstrated evidence of a new 1.6 x 1.2 cm mass in the central medial anterior aspect of the right breast with also enlargement of a right axillary lymph node at this time.??? Biopsy is recommended. 01/19/2024: The right axilla was examined with ultrasound and there is a 2.4 x 1.5 x 1.2 cm irregular appearing lymph node in the right axilla with increased blood flow, recommend biopsy.??? There is also evidence of 2 benign appearing lymph nodes within the axilla.??? Ultrasound of the breast demonstrates a 2.2 x 1.9 x 1.7 cm hypoechoic irregular nodule with posterior shadowing at the 3 o'clock position of the breast 2 cm from the nipple.??? BI-RADS Category 5. 01/19/2024: Ultrasound-guided biopsy to the right breast and right axillary lymph node was completed.??? Breast biopsy demonstrated grade 3 invasive ductal carcinoma (ER > 95%, VA 32%, HER2 1???2+ IHC, not amplified on FISH).??? Biopsy of axillary lymph node was consistent with metastatic breast cancer. 02/05/2024: Patient was evaluated by surgical oncology at [facility].??? Staging recommended due to lymph node involvement.??? Discussed surgical options. 02/08/2024: [facility]??? Discussed various reconstructive options. 02/09/2024: Patient was evaluated by [facility] medical oncology.??? Referral to genetics.??? Due to high Ki-67 and grade 3 disease considered a good candidate for neoadjuvant chemotherapy to downstage the axilla and this is the plan.??? Also discussed adjuvant treatment with AI and abemaciclib. 02/13/2024: Patient completed CT chest/abdomen/pelvis with contrast.??? This demonstrated a right breast nodule with asymmetrically prominent right axillary lymph nodes concerning for neoplasm.??? No evidence for metastatic disease in the chest.??? There is evidence of a 4.7 cm liver lesion likely hemangioma but MRI could be considered for confirmation.??? No other evidence of metastatic disease in the abdomen or pelvis. 02/13/2024: Bone scan was performed.??? This demonstrated no evidence for metastatic disease. 02/21/2024: Patient completed bilateral breast MRI with and without contrast.??? This demonstrated a dominant right breast mass corresponded the biopsy-proven invasive ductal carcinoma.??? No evidence of additional suspicious breast masses or enhancement.??? There is a large right axillary lymph node corresponding to the biopsy-proven metastatic lymph node, there are additional right axillary lymph nodes which at least the level 1 right axillary lymph node is borderline enlarged.??? There is a soft tissue lesion along the internal aspect of the right fourth and fifth rib costochondral junctions encasing the right internal mammary vessels and abuts the right anterior pleura favoring to represent metastatic disease.??? This is likely advanced internal mammary lymphadenopathy and there are additional enlarged right internal mammary lymph nodes concerning for metastatic disease.??? There is increased number and prominence of prevascular lymph nodes which is nonspecific, recommend continued attention to follow-up imaging.??? Hepatic lesion seen on CT as stated previously an MRI would be beneficial to complete for characterization.??? BI-RADS Category 6. 02/23/2024 ??? 06/28/2024: received ddACT 02/25/2024: MRI abdomen with and without contrast was performed.??? This demonstrated that the left liver lesion is consistent with benign hemangioma.??? No additional lesions or evidence of metastatic disease in the abdomen. 07/11/2024: Patient completed bilateral breast MRI with and without contrast (this demonstrated partial treatment response with significant decrease in size and Compass acuity (more content not included)... Normal [facility] Radiation Oncology Visit [facility] [place] [address] OFFICE VISIT Date of Service: 11/04/24 1506 MR#: [id number] Acct: [id number] Name: MILAD LANE Rep #: [id number] : 1965 From: Thomas Hanson DO Age/Sex: 59/F [place] [facility] Status: Signed Intake Vital Signs 10/24/24 14:55 11/04/24 15:07 Height 5 ft 5 in 5 ft 5 in Weight: 239 lb 2 oz 239 lb BMI 39.7 39.7 BP 149/93 H Blood Pressure Location Lt brachial Position Sitting Respiration 18 18 Pulse 73 76 Pulse Source Monitor Monitor Temp 97.6 F L 97.2 F L Temperature Source Temporal Artery Temporal Artery Pulse Oximetry (%) 99 94 Oxygen Delivery Method room air room air Intake Visit Reasons: OTV Is patient in pain?: Yes (collarbone) Pain scale (1-10): 3 Allergies metronidazole (From Flagyl) Allergy (Verified 11/04/24 15:06) Hives Medications ???Medication ???Instructions ???Recorded ???Confirmed ???Type hydrochlorothiazide 25 mg tablet 25 mg PO DAILY 09/09/21 11/04/24 H istory levothyroxine 50 mcg tablet 1 tablet PO DAILY 09/09/21 5 History acetaminophen 325 mg tablet 650 mg PO Q6H PRN 08/15/24 5 History ergocalciferol (vitamin D2) 1,250 1 unit PO .q other week 08/15/24 11/04/24 History mcg (50,000 unit) capsule gabapentin 300 mg capsule 300 mg PO TID 08/15/24 11/04/24 Hi story ibuprofen 400 mg tablet 400 mg PO Q8H PRN 08/15/24 5 History lidocaine-prilocaine 2.5 %-2.5 % 1 applic topical QDAY PRN 08/15/24 11/04/24 History topical cream loratadine 10 mg tablet 10 mg PO QDAY 08/15/24 11/04/24 Hi story magnesium oxide 400 mg (241.3 mg 400 mg PO QDAY 08/15/24 11/04/24 H istory magnesium) tablet omega-3 650 mg-dha 400 mg-epa 200 1 cap PO QDAY 08/15/24 11/04/24 H istory mg-fish oil-vit D3 300 unit capsule vitamin B complex 1 cap PO QDAY 08/15/24 11/04/24 Hi story vitamin E (dl, acetate) 180 mg 360 mg PO QDAY 08/15/24 11/04/24 H istory (400 unit) capsule zolpidem 5 mg tablet 5 mg PO QHS 08/15/24 11/04/24 Hist ory silver sulfadiazine 1 % topical 1 applic topical BID #85 grams 07/2711/04/24 Rx cream (Silvadene) [facility] Medical History Uterine fibroid Goiter 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+] Malignant neoplasm of overlapping sites of right female breast Invasive ductal carcinoma of right breast Post-menopausal Wears glasses Anxiety Alcohol use Thyroid disease Arthritis Fatty liver Back pain Injury of back Non-smoker Leg cramps History of edema Hypertension History of irregular heartbeat Home Medications ???Medication ???Instructions ???Recorded ???Last Taken ???Type hydrochlorothiazide 25 mg tablet 25 mg PO DAILY 09/09/21 Unknown Hi story levothyroxine 50 mcg tablet 1 tablet PO DAILY 09/09/21 Unknown History acetaminophen 325 mg tablet 650 mg PO Q6H PRN 08/15/24 Unknown History ergocalciferol (vitamin D2) 1,250 1 unit PO .q other week 08/15/24 Unknown History mcg (50,000 unit) capsule gabapentin 300 mg capsule 300 mg PO TID 08/15/24 Unknown His tory ibuprofen 400 mg tablet 400 mg PO Q8H PRN 08/15/24 Unknown History lidocaine-prilocaine 2.5 %-2.5 % 1 applic topical QDAY PRN 08/15/24 Unknown History topical cream loratadine 10 mg tablet 10 mg PO QDAY 08/15/24 Unknown His tory magnesium oxide 400 mg (241.3 mg 400 mg PO QDAY 08/15/24 Unknown Hi story magnesium) tablet omega-3 650 mg-dha 400 mg-epa 200 1 cap PO QDAY 08/15/24 Unknown Hi story mg-fish oil-vit D3 300 unit capsule vitamin B complex 1 cap PO QDAY 08/15/24 Unknown His tory vitamin E (dl, acetate) 180 mg 360 mg PO QDAY 08/15/24 Unknown Hi story (400 unit) capsule zolpidem 5 mg tablet 5 mg PO QHS 08/15/24 Unknown Histo ry silver sulfadiazine 1 % topical 1 applic topical BID #85 grams 07/27 Unknown Rx cream (Silvadene) Allergy/AdvReac Type Severity Reaction Status Date / Time metronidazole (From Flagyl) Allergy Hives Verified 11/04/24 15:06 Family History Mother Cancer, Onset Age: 60 pancreatic Aunt Breast cancer, Onset Age: 76 Uncle Cancer Brother Cancer Grandmother Cancer Surgical History History of oophorectomy History of breast biopsy Encounter for insertion of tunneled central venous catheter (CVC) with port Hx of hysterectomy Hx laparoscopic cholecystectomy History of delivery Social History Smoking Status: Never smoker alcohol intake: current alcohol intake frequency: a few times a week substance use type: does not use Monse (more content not included)... Normal [facility] Radiation Oncology Visiton 0 10-31-2024 Radiation Oncology Visit [facility] [address] [address] OFFICE VISIT Date of Service: 10/31/24 145 MR#: [id number] Acct: [id number] Name: MILAD LANE Rep #: [id number] : 1965 From: Thomas Hanson DO Age/Sex: 59/F Location: [facility] [place] Status: Signed Intake Vital Signs 09/02/24 09:04 10/31/24 14:59 Height 5 ft 5 in 5 ft 5 in Weight: 239 lb 6 oz BMI 39.8 BP 153/94 H Blood Pressure Location Lt brachial Position Sitting Respiration 16 Pulse 69 Pulse Source Monitor Temp 97.6 F L Temperature Source Temporal Artery Pulse Oximetry (%) 99 Oxygen Delivery Method room air Intake Visit Reasons: OTV Is patient in pain?: Yes (upper chest wall / breast) Pain scale (1-10): 5 Allergies metronidazole (From Flagyl) Allergy (Verified 10/31/24 15:04) Hives Medications ???Medication ???Instructions ???Recorded ???Confirmed ???Type hydrochlorothiazide 25 mg tablet 25 mg PO DAILY 09/09/21 10/31/24 H istory levothyroxine 50 mcg tablet 1 tablet PO DAILY 09/09/21 5 History acetaminophen 325 mg tablet 650 mg PO Q6H PRN 08/15/24 5 History ergocalciferol (vitamin D2) 1,250 1 unit PO .q other week 08/15/24 10/31/24 History mcg (50,000 unit) capsule gabapentin 300 mg capsule 300 mg PO TID 08/15/24 10/31/24 Hi story ibuprofen 400 mg tablet 400 mg PO Q8H PRN 08/15/24 5 History lidocaine-prilocaine 2.5 %-2.5 % 1 applic topical QDAY PRN 08/15/24 10/31/24 History topical cream loratadine 10 mg tablet 10 mg PO QDAY 08/15/24 10/31/24 Hi story magnesium oxide 400 mg (241.3 mg 400 mg PO QDAY 08/15/24 10/31/24 H istory magnesium) tablet omega-3 650 mg-dha 400 mg-epa 200 1 cap PO QDAY 08/15/24 10/31/24 H istory mg-fish oil-vit D3 300 unit capsule vitamin B complex 1 cap PO QDAY 08/15/24 10/31/24 Hi story vitamin E (dl, acetate) 180 mg 360 mg PO QDAY 08/15/24 10/31/24 H istory (400 unit) capsule zolpidem 5 mg tablet 5 mg PO QHS 08/15/24 10/31/24 Hist ory silver sulfadiazine 1 % topical 1 applic topical BID #85 grams 07/2710/31/24 Rx cream (Silvadene) [facility] Medical History Uterine fibroid Goiter 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+] Malignant neoplasm of overlapping sites of right female breast Invasive ductal carcinoma of right breast Post-menopausal Wears glasses Anxiety Alcohol use Thyroid disease Arthritis Fatty liver Back pain Injury of back Non-smoker Leg cramps History of edema Hypertension History of irregular heartbeat Home Medications ???Medication ???Instructions ???Recorded ???Last Taken ???Type hydrochlorothiazide 25 mg tablet 25 mg PO DAILY 09/09/21 Unknown Hi story levothyroxine 50 mcg tablet 1 tablet PO DAILY 09/09/21 Unknown History acetaminophen 325 mg tablet 650 mg PO Q6H PRN 08/15/24 Unknown History ergocalciferol (vitamin D2) 1,250 1 unit PO .q other week 08/15/24 Unknown History mcg (50,000 unit) capsule gabapentin 300 mg capsule 300 mg PO TID 08/15/24 Unknown His tory ibuprofen 400 mg tablet 400 mg PO Q8H PRN 08/15/24 Unknown History lidocaine-prilocaine 2.5 %-2.5 % 1 applic topical QDAY PRN 08/15/24 Unknown History topical cream loratadine 10 mg tablet 10 mg PO QDAY 08/15/24 Unknown His tory magnesium oxide 400 mg (241.3 mg 400 mg PO QDAY 08/15/24 Unknown Hi story magnesium) tablet omega-3 650 mg-dha 400 mg-epa 200 1 cap PO QDAY 08/15/24 Unknown Hi story mg-fish oil-vit D3 300 unit capsule vitamin B complex 1 cap PO QDAY 08/15/24 Unknown His tory vitamin E (dl, acetate) 180 mg 360 mg PO QDAY 08/15/24 Unknown Hi story (400 unit) capsule zolpidem 5 mg tablet 5 mg PO QHS 08/15/24 Unknown Histo ry silver sulfadiazine 1 % topical 1 applic topical BID #85 grams 07/27 Unknown Rx cream (Silvadene) Allergy/AdvReac Type Severity Reaction Status Date / Time metronidazole (From Flagyl) Allergy Hives Verified 10/31/24 15:04 Family History Mother Cancer, Onset Age: 60 pancreatic Aunt Breast cancer, Onset Age: 76 Uncle Cancer Brother Cancer Grandmother Cancer Surgical History History of oophorectomy History of breast biopsy Encounter for insertion of tunneled central venous catheter (CVC) with port Hx of hysterectomy Hx laparoscopic cholecystectomy History of delivery Social History Smoking Status: Never smoker alcohol intake: current alcohol intake frequency: a few times a week substance use type: does not use Diagnosis: Milad Lane is a 59 year-old female (more content not included)... Normal [facility] Radiation Oncology Visiton 0 10-24-2024 Radiation Oncology Visit [facility] [address] [place] [address] OFFICE VISIT Date of Service: 10/24/24 1454 MR#: [id number] Acct: [id number] Name: MILAD LANE Rep #: [id number] : 1965 From: Thomas Hanson DO Age/Sex: 59/F Location: [facility] [place] Status: Signed Intake Vital Signs 09/02/24 09:04 10/24/24 14:55 Height 5 ft 5 in 5 ft 5 in Weight: 239 lb 2 oz BMI 39.7 BP 149/93 H Blood Pressure Location Lt brachial Position Sitting Respiration 18 Pulse 73 Pulse Source Monitor Temp 97.6 F L Temperature Source Temporal Artery Pulse Oximetry (%) 99 Oxygen Delivery Method room air Intake Visit Reasons: OTV Is patient in pain?: No Allergies metronidazole (From Flagyl) Allergy (Verified 10/24/24 15:01) Hives Medications ???Medication ???Instructions ???Recorded ???Confirmed ???Type hydrochlorothiazide 25 mg tablet 25 mg PO DAILY 09/09/21 10/24/24 H istory levothyroxine 50 mcg tablet 1 tablet PO DAILY 09/09/21 5 History acetaminophen 325 mg tablet 650 mg PO Q6H PRN 08/15/24 5 History ergocalciferol (vitamin D2) 1,250 1 unit PO .q other week 08/15/24 10/24/24 History mcg (50,000 unit) capsule gabapentin 300 mg capsule 300 mg PO TID 08/15/24 10/24/24 Hi story ibuprofen 400 mg tablet 400 mg PO Q8H PRN 08/15/24 5 History lidocaine-prilocaine 2.5 %-2.5 % 1 applic topical QDAY PRN 08/15/24 10/24/24 History topical cream loratadine 10 mg tablet 10 mg PO QDAY 08/15/24 10/24/24 Hi story magnesium oxide 400 mg (241.3 mg 400 mg PO QDAY 08/15/24 10/24/24 H istory magnesium) tablet omega-3 650 mg-dha 400 mg-epa 200 1 cap PO QDAY 08/15/24 10/24/24 H istory mg-fish oil-vit D3 300 unit capsule vitamin B complex 1 cap PO QDAY 08/15/24 10/24/24 Hi story vitamin E (dl, acetate) 180 mg 360 mg PO QDAY 08/15/24 10/24/24 H istory (400 unit) capsule zolpidem 5 mg tablet 5 mg PO QHS 08/15/24 10/24/24 Hist ory PFSH [facility] Medical History Uterine fibroid Goiter 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+] Malignant neoplasm of overlapping sites of right female breast Invasive ductal carcinoma of right breast Post-menopausal Wears glasses Anxiety Alcohol use Thyroid disease Arthritis Fatty liver Back pain Injury of back Non-smoker Leg cramps History of edema Hypertension History of irregular heartbeat Home Medications ???Medication ???Instructions ???Recorded ???Last Taken ???Type hydrochlorothiazide 25 mg tablet 25 mg PO DAILY 09/09/21 Unknown Hi story levothyroxine 50 mcg tablet 1 tablet PO DAILY 09/09/21 Unknown History acetaminophen 325 mg tablet 650 mg PO Q6H PRN 08/15/24 Unknown History ergocalciferol (vitamin D2) 1,250 1 unit PO .q other week 08/15/24 Unknown History mcg (50,000 unit) capsule gabapentin 300 mg capsule 300 mg PO TID 08/15/24 Unknown His tory ibuprofen 400 mg tablet 400 mg PO Q8H PRN 08/15/24 Unknown History lidocaine-prilocaine 2.5 %-2.5 % 1 applic topical QDAY PRN 08/15/24 Unknown History topical cream loratadine 10 mg tablet 10 mg PO QDAY 08/15/24 Unknown His tory magnesium oxide 400 mg (241.3 mg 400 mg PO QDAY 08/15/24 Unknown Hi story magnesium) tablet omega-3 650 mg-dha 400 mg-epa 200 1 cap PO QDAY 08/15/24 Unknown Hi story mg-fish oil-vit D3 300 unit capsule vitamin B complex 1 cap PO QDAY 08/15/24 Unknown His tory vitamin E (dl, acetate) 180 mg 360 mg PO QDAY 08/15/24 Unknown Hi story (400 unit) capsule zolpidem 5 mg tablet 5 mg PO QHS 08/15/24 Unknown Histo ry Allergy/AdvReac Type Severity Reaction Status Date / Time metronidazole (From Flagyl) Allergy Hives Verified 10/24/24 15:01 Family History Mother Cancer, Onset Age: 60 pancreatic Aunt Breast cancer, Onset Age: 76 Uncle Cancer Brother Cancer Grandmother Cancer Surgical History History of oophorectomy History of breast biopsy Encounter for insertion of tunneled central venous catheter (CVC) with port Hx of hysterectomy Hx laparoscopic cholecystectomy History of delivery Social History Smoking Status: Never smoker alcohol intake: current alcohol intake frequency: a few times a week substance use type: does not use Diagnosis: Milad Lane is a 59 year-old female diagnosed with clinical stage IIIC (cT2 cN3b M0, ypT0 ypN0) grade 3 invasive ductal carcinoma (ER > 95%, VA 32%, HER2 1???2+ IHC, not amplified on FISH) of the right breast status post screening mammography (01/12/2024), diagnostic right breast mammogram and ultrasound (more content not included)... Normal [facility] Radiation Oncology Visiton 0 10-17-2024 Radiation Oncology Visit [facility] [address] [place] [id number] OFFICE VISIT Date of Service: 10/17/24 1452 MR#: [id number] Acct: [id number] Name: MILAD LANE Rep #: [id number] : 1965 From: Thomas Hanson DO Age/Sex: 59/F Location[place] [facility] Status: Signed Intake Vital Signs 09/02/24 09:04 10/17/24 14:54 Height 5 ft 5 in 5 ft 5 in Weight: 236 lb 6 oz BMI 39.3 BP 155/93 H Blood Pressure Location Lt brachial Position Sitting Respiration 16 Pulse 66 Pulse Source Monitor Temp 97.7 F L Temperature Source Temporal Artery Pulse Oximetry (%) 99 Oxygen Delivery Method room air Intake Visit Reasons: OTV Is patient in pain?: No Allergies metronidazole (From Flagyl) Allergy (Verified 10/17/24 14:55) Hives Medications ???Medication ???Instructions ???Recorded ???Confirmed ???Type hydrochlorothiazide 25 mg tablet 25 mg PO DAILY 09/09/21 10/17/24 H istory levothyroxine 50 mcg tablet 1 tablet PO DAILY 09/09/21 5 History acetaminophen 325 mg tablet 650 mg PO Q6H PRN 08/15/24 5 History ergocalciferol (vitamin D2) 1,250 1 unit PO .q other week 08/15/24 10/17/24 History mcg (50,000 unit) capsule gabapentin 300 mg capsule 300 mg PO TID 08/15/24 10/17/24 Hi story ibuprofen 400 mg tablet 400 mg PO Q8H PRN 08/15/24 5 History lidocaine-prilocaine 2.5 %-2.5 % 1 applic topical QDAY PRN 08/15/24 10/17/24 History topical cream loratadine 10 mg tablet 10 mg PO QDAY 08/15/24 10/17/24 Hi story magnesium oxide 400 mg (241.3 mg 400 mg PO QDAY 08/15/24 10/17/24 H istory magnesium) tablet omega-3 650 mg-dha 400 mg-epa 200 1 cap PO QDAY 08/15/24 10/17/24 H istory mg-fish oil-vit D3 300 unit capsule vitamin B complex 1 cap PO QDAY 08/15/24 10/17/24 Hi story vitamin E (dl, acetate) 180 mg 360 mg PO QDAY 08/15/24 10/17/24 H istory (400 unit) capsule zolpidem 5 mg tablet 5 mg PO QHS 08/15/24 10/17/24 Hist ory PFSH PFSH Medical History Uterine fibroid Goiter 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+] Malignant neoplasm of overlapping sites of right female breast Invasive ductal carcinoma of right breast Post-menopausal Wears glasses Anxiety Alcohol use Thyroid disease Arthritis Fatty liver Back pain Injury of back Non-smoker Leg cramps History of edema Hypertension History of irregular heartbeat Home Medications ???Medication ???Instructions ???Recorded ???Last Taken ???Type hydrochlorothiazide 25 mg tablet 25 mg PO DAILY 09/09/21 Unknown Hi story levothyroxine 50 mcg tablet 1 tablet PO DAILY 09/09/21 Unknown History acetaminophen 325 mg tablet 650 mg PO Q6H PRN 08/15/24 Unknown History ergocalciferol (vitamin D2) 1,250 1 unit PO .q other week 08/15/24 Unknown History mcg (50,000 unit) capsule gabapentin 300 mg capsule 300 mg PO TID 08/15/24 Unknown His tory ibuprofen 400 mg tablet 400 mg PO Q8H PRN 08/15/24 Unknown History lidocaine-prilocaine 2.5 %-2.5 % 1 applic topical QDAY PRN 08/15/24 Unknown History topical cream loratadine 10 mg tablet 10 mg PO QDAY 08/15/24 Unknown His tory magnesium oxide 400 mg (241.3 mg 400 mg PO QDAY 08/15/24 Unknown Hi story magnesium) tablet omega-3 650 mg-dha 400 mg-epa 200 1 cap PO QDAY 08/15/24 Unknown Hi story mg-fish oil-vit D3 300 unit capsule vitamin B complex 1 cap PO QDAY 08/15/24 Unknown His tory vitamin E (dl, acetate) 180 mg 360 mg PO QDAY 08/15/24 Unknown Hi story (400 unit) capsule zolpidem 5 mg tablet 5 mg PO QHS 08/15/24 Unknown Histo ry Allergy/AdvReac Type Severity Reaction Status Date / Time metronidazole (From Flagyl) Allergy Hives Verified 10/17/24 14:55 Family History Mother Cancer, Onset Age: 60 pancreatic Aunt Breast cancer, Onset Age: 76 Uncle Cancer Brother Cancer Grandmother Cancer Surgical History History of oophorectomy History of breast biopsy Encounter for insertion of tunneled central venous catheter (CVC) with port Hx of hysterectomy Hx laparoscopic cholecystectomy History of delivery Social History Smoking Status: Never smoker alcohol intake: current alcohol intake frequency: a few times a week substance use type: does not use Diagnosis: Milad Lane is a 59 year-old female diagnosed with clinical stage IIIC (cT2 cN3b M0, ypT0 ypN0) grade 3 invasive ductal carcinoma (ER > 95%, VA 32%, HER2 1???2+ IHC, not amplified on FISH) of the right breast status post screening mammography (01/12/2024), diagnostic right breast mammogram and ultrasound (more content not included)... Normal [facility] Radiation Oncology Visiton 0 10-09-2024 Radiation Oncology Visit [facility] [address] [place] [address] [place] [address] OFFICE VISIT Date of Service: 10/09/24 1509 MR#: [id number] Acct: [id number] Name: MILAD LANE Rep #: [id number] : 1965 From: Nils Pang MD Age/Sex: 59/F Location: [facility] [place] Status: Signed Intake Vital Signs 09/02/24 09:04 10/02/24 15:16 10/09/24 15:11 Height 5 ft 5 in 5 ft 5 in 5 ft 5 in Weight: 237 lb 9 oz 240 lb 4 oz BMI 39.5 39.9 BP 139/87 H 143/89 H Blood Pressure Location Lt brachial Lt brachial Position Sitting Sitting Respiration 18 16 Pulse 75 73 Pulse Source Monitor Monitor Temp 97.1 F L 98.0 F Temperature Source Temporal Artery Temporal Artery Pulse Oximetry (%) 98 98 Oxygen Delivery Method room air room air Intake Visit Reasons: OTV Is patient in pain?: No Allergies metronidazole (From Flagyl) Allergy (Verified 10/09/24 15:14) Hives Medications ???Medication ???Instructions ???Recorded ???Confirmed ???Type hydrochlorothiazide 25 mg tablet 25 mg PO DAILY 09/09/21 10/09/24 H istory levothyroxine 50 mcg tablet 1 tablet PO DAILY 09/09/21 5 History acetaminophen 325 mg tablet 650 mg PO Q6H PRN 08/15/24 5 History ergocalciferol (vitamin D2) 1,250 1 unit PO .q other week 08/15/24 10/09/24 History mcg (50,000 unit) capsule gabapentin 300 mg capsule 300 mg PO TID 08/15/24 10/09/24 Hi story ibuprofen 400 mg tablet 400 mg PO Q8H PRN 08/15/24 5 History lidocaine-prilocaine 2.5 %-2.5 % 1 applic topical QDAY PRN 08/15/24 10/09/24 History topical cream loratadine 10 mg tablet 10 mg PO QDAY 08/15/24 10/09/24 Hi story magnesium oxide 400 mg (241.3 mg 400 mg PO QDAY 08/15/24 10/09/24 H istory magnesium) tablet omega-3 650 mg-dha 400 mg-epa 200 1 cap PO QDAY 08/15/24 10/09/24 H istory mg-fish oil-vit D3 300 unit capsule vitamin B complex 1 cap PO QDAY 08/15/24 10/09/24 Hi story vitamin E (dl, acetate) 180 mg 360 mg PO QDAY 08/15/24 10/09/24 H istory (400 unit) capsule zolpidem 5 mg tablet 5 mg PO QHS 08/15/24 10/09/24 Hist ory [facility] Medical History Uterine fibroid Goiter 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+] Malignant neoplasm of overlapping sites of right female breast Invasive ductal carcinoma of right breast Post-menopausal Wears glasses Anxiety Alcohol use Thyroid disease Arthritis Fatty liver Back pain Injury of back Non-smoker Leg cramps History of edema Hypertension History of irregular heartbeat Home Medications ???Medication ???Instructions ???Recorded ???Last Taken ???Type hydrochlorothiazide 25 mg tablet 25 mg PO DAILY 09/09/21 Unknown Hi story levothyroxine 50 mcg tablet 1 tablet PO DAILY 09/09/21 Unknown History acetaminophen 325 mg tablet 650 mg PO Q6H PRN 08/15/24 Unknown History ergocalciferol (vitamin D2) 1,250 1 unit PO .q other week 08/15/24 Unknown History mcg (50,000 unit) capsule gabapentin 300 mg capsule 300 mg PO TID 08/15/24 Unknown His tory ibuprofen 400 mg tablet 400 mg PO Q8H PRN 08/15/24 Unknown History lidocaine-prilocaine 2.5 %-2.5 % 1 applic topical QDAY PRN 08/15/24 Unknown History topical cream loratadine 10 mg tablet 10 mg PO QDAY 08/15/24 Unknown His tory magnesium oxide 400 mg (241.3 mg 400 mg PO QDAY 08/15/24 Unknown Hi story magnesium) tablet omega-3 650 mg-dha 400 mg-epa 200 1 cap PO QDAY 08/15/24 Unknown Hi story mg-fish oil-vit D3 300 unit capsule vitamin B complex 1 cap PO QDAY 08/15/24 Unknown His tory vitamin E (dl, acetate) 180 mg 360 mg PO QDAY 08/15/24 Unknown Hi story (400 unit) capsule zolpidem 5 mg tablet 5 mg PO QHS 08/15/24 Unknown Histo ry Allergy/AdvReac Type Severity Reaction Status Date / Time metronidazole (From Flagyl) Allergy Hives Verified 10/09/24 15:14 Family History Mother Cancer, Onset Age: 60 pancreatic Aunt Breast cancer, Onset Age: 76 Uncle Cancer Brother Cancer Grandmother Cancer Surgical History History of oophorectomy History of breast biopsy Encounter for insertion of tunneled central venous catheter (CVC) with port Hx of hysterectomy Hx laparoscopic cholecystectomy History of delivery Social History Smoking Status: Never smoker alcohol intake: current alcohol intake frequency: a few times a week substance use type: does not use Diagnosis: Milad Lane is a 59 year-old female diagnosed with clinical stage IIIC (cT2 cN3b M0, ypT0 ypN0) grade 3 invasive ductal carcinoma (ER > 95%, VA 32%, HER2 1???2+ IHC, not amplified on (more content not included)... Normal [facility] Radiation Oncology Visiton 0 10-02-2024 Radiation Oncology Visit [facility] [place] [address] OFFICE VISIT Date of Service: 10/02/24 1506 MR#: [id number] Acct: [id number] Name: MILAD LANE Rep #: [id number] : 1965 From: Nils Pang MD Age/Sex: 59/F [place] [facility] Status: Signed Intake Vital Signs 09/02/24 09:04 09/26/24 15:00 10/02/24 15:16 Height 5 ft 5 in 5 ft 5 in 5 ft 5 in Weight: 237 lb 9 oz 237 lb 9 oz BMI 39.5 39.5 BP 143/90 H 139/87 H Blood Pressure Location Lt brachial Lt brachial Position Sitting Sitting Respiration 18 18 Pulse 79 75 Pulse Source Monitor Monitor Temp 98.0 F 97.1 F L Temperature Source Temporal Artery Temporal Artery Pulse Oximetry (%) 97 98 Oxygen Delivery Method room air room air Intake Visit Reasons: OTV Is patient in pain?: No Allergies metronidazole (From Flagyl) Allergy (Verified 10/02/24 15:16) Hives Medications ???Medication ???Instructions ???Recorded ???Confirmed ???Type hydrochlorothiazide 25 mg tablet 25 mg PO DAILY 09/09/21 10/02/24 H istory levothyroxine 50 mcg tablet 1 tablet PO DAILY 09/09/21 5 History acetaminophen 325 mg tablet 650 mg PO Q6H PRN 08/15/24 5 History ergocalciferol (vitamin D2) 1,250 1 unit PO .q other week 08/15/24 10/02/24 History mcg (50,000 unit) capsule gabapentin 300 mg capsule 300 mg PO TID 08/15/24 10/02/24 Hi story ibuprofen 400 mg tablet 400 mg PO Q8H PRN 08/15/24 5 History lidocaine-prilocaine 2.5 %-2.5 % 1 applic topical QDAY PRN 08/15/24 10/02/24 History topical cream loratadine 10 mg tablet 10 mg PO QDAY 08/15/24 10/02/24 Hi story magnesium oxide 400 mg (241.3 mg 400 mg PO QDAY 08/15/24 10/02/24 H istory magnesium) tablet omega-3 650 mg-dha 400 mg-epa 200 1 cap PO QDAY 08/15/24 10/02/24 H istory mg-fish oil-vit D3 300 unit capsule vitamin B complex 1 cap PO QDAY 08/15/24 10/02/24 Hi story vitamin E (dl, acetate) 180 mg 360 mg PO QDAY 08/15/24 10/02/24 H istory (400 unit) capsule zolpidem 5 mg tablet 5 mg PO QHS 08/15/24 10/02/24 Hist ory PFSH PFS Medical History Uterine fibroid Goiter 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+] Malignant neoplasm of overlapping sites of right female breast Invasive ductal carcinoma of right breast Post-menopausal Wears glasses Anxiety Alcohol use Thyroid disease Arthritis Fatty liver Back pain Injury of back Non-smoker Leg cramps History of edema Hypertension History of irregular heartbeat Home Medications ???Medication ???Instructions ???Recorded ???Last Taken ???Type hydrochlorothiazide 25 mg tablet 25 mg PO DAILY 09/09/21 Unknown Hi story levothyroxine 50 mcg tablet 1 tablet PO DAILY 09/09/21 Unknown History acetaminophen 325 mg tablet 650 mg PO Q6H PRN 08/15/24 Unknown History ergocalciferol (vitamin D2) 1,250 1 unit PO .q other week 08/15/24 Unknown History mcg (50,000 unit) capsule gabapentin 300 mg capsule 300 mg PO TID 08/15/24 Unknown His tory ibuprofen 400 mg tablet 400 mg PO Q8H PRN 08/15/24 Unknown History lidocaine-prilocaine 2.5 %-2.5 % 1 applic topical QDAY PRN 08/15/24 Unknown History topical cream loratadine 10 mg tablet 10 mg PO QDAY 08/15/24 Unknown His tory magnesium oxide 400 mg (241.3 mg 400 mg PO QDAY 08/15/24 Unknown Hi story magnesium) tablet omega-3 650 mg-dha 400 mg-epa 200 1 cap PO QDAY 08/15/24 Unknown Hi story mg-fish oil-vit D3 300 unit capsule vitamin B complex 1 cap PO QDAY 08/15/24 Unknown His tory vitamin E (dl, acetate) 180 mg 360 mg PO QDAY 08/15/24 Unknown Hi story (400 unit) capsule zolpidem 5 mg tablet 5 mg PO QHS 08/15/24 Unknown Histo ry Allergy/AdvReac Type Severity Reaction Status Date / Time metronidazole (From Flagyl) Allergy Hives Verified 10/02/24 15:16 Family History Mother Cancer, Onset Age: 60 pancreatic Aunt Breast cancer, Onset Age: 76 Uncle Cancer Brother Cancer Grandmother Cancer Surgical History History of oophorectomy History of breast biopsy Encounter for insertion of tunneled central venous catheter (CVC) with port Hx of hysterectomy Hx laparoscopic cholecystectomy History of delivery Social History Smoking Status: Never smoker alcohol intake: current alcohol intake frequency: a few times a week substance use type: does not use Diagnosis: Milad Lane is a 59 year-old female diagnosed with clinical stage IIIC (cT2 cN3b M0, ypT0 ypN0) grade 3 invasive ductal carcinoma (ER > 95%, VA 32%, HER2 1???2+ IHC, not amplified on (more content not included)... Normal [facility] Radiation Oncology Visiton 0 09-26-2024 Radiation Oncology Visit [facility] [address] [address] OFFICE VISIT Date of Service: 09/26/24 1459 MR#: [id number] Acct: [id number] Name: MILAD LANE Rep #: [id number] : 1965 From: Thomas Hanson DO Age/Sex: 59/F Location: [facility] [place] Status: Signed Intake Vital Signs 09/02/24 09:04 09/26/24 15:00 Height 5 ft 5 in 5 ft 5 in Weight: 237 lb 9 oz BMI 39.5 BP 143/90 H Blood Pressure Location Lt brachial Position Sitting Respiration 18 Pulse 79 Pulse Source Monitor Temp 98.0 F Temperature Source Temporal Artery Pulse Oximetry (%) 97 Oxygen Delivery Method room air Intake Visit Reasons: OTV Is patient in pain?: No Allergies metronidazole (From Flagyl) Allergy (Verified 09/26/24 15:09) Hives Medications ???Medication ???Instructions ???Recorded ???Confirmed ???Type hydrochlorothiazide 25 mg tablet 25 mg PO DAILY 09/09/21 09/26/24 H istory levothyroxine 50 mcg tablet 1 tablet PO DAILY 09/09/21 5 History acetaminophen 325 mg tablet 650 mg PO Q6H PRN 08/15/24 5 History ergocalciferol (vitamin D2) 1,250 1 unit PO .q other week 08/15/24 09/26/24 History mcg (50,000 unit) capsule gabapentin 300 mg capsule 300 mg PO TID 08/15/24 09/26/24 Hi story ibuprofen 400 mg tablet 400 mg PO Q8H PRN 08/15/24 5 History lidocaine-prilocaine 2.5 %-2.5 % 1 applic topical QDAY PRN 08/15/24 09/26/24 History topical cream loratadine 10 mg tablet 10 mg PO QDAY 08/15/24 09/26/24 Hi story magnesium oxide 400 mg (241.3 mg 400 mg PO QDAY 08/15/24 09/26/24 H istory magnesium) tablet omega-3 650 mg-dha 400 mg-epa 200 1 cap PO QDAY 08/15/24 09/26/24 H istory mg-fish oil-vit D3 300 unit capsule vitamin B complex 1 cap PO QDAY 08/15/24 09/26/24 Hi story vitamin E (dl, acetate) 180 mg 360 mg PO QDAY 08/15/24 09/26/24 H istory (400 unit) capsule zolpidem 5 mg tablet 5 mg PO QHS 08/15/24 09/26/24 Hist ory PFSH PFS Medical History Uterine fibroid Goiter 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+] Malignant neoplasm of overlapping sites of right female breast Invasive ductal carcinoma of right breast Post-menopausal Wears glasses Anxiety Alcohol use Thyroid disease Arthritis Fatty liver Back pain Injury of back Non-smoker Leg cramps History of edema Hypertension History of irregular heartbeat Home Medications ???Medication ???Instructions ???Recorded ???Last Taken ???Type hydrochlorothiazide 25 mg tablet 25 mg PO DAILY 09/09/21 Unknown Hi story levothyroxine 50 mcg tablet 1 tablet PO DAILY 09/09/21 Unknown History acetaminophen 325 mg tablet 650 mg PO Q6H PRN 08/15/24 Unknown History ergocalciferol (vitamin D2) 1,250 1 unit PO .q other week 08/15/24 Unknown History mcg (50,000 unit) capsule gabapentin 300 mg capsule 300 mg PO TID 08/15/24 Unknown His tory ibuprofen 400 mg tablet 400 mg PO Q8H PRN 08/15/24 Unknown History lidocaine-prilocaine 2.5 %-2.5 % 1 applic topical QDAY PRN 08/15/24 Unknown History topical cream loratadine 10 mg tablet 10 mg PO QDAY 08/15/24 Unknown His tory magnesium oxide 400 mg (241.3 mg 400 mg PO QDAY 08/15/24 Unknown Hi story magnesium) tablet omega-3 650 mg-dha 400 mg-epa 200 1 cap PO QDAY 08/15/24 Unknown Hi story mg-fish oil-vit D3 300 unit capsule vitamin B complex 1 cap PO QDAY 08/15/24 Unknown His tory vitamin E (dl, acetate) 180 mg 360 mg PO QDAY 08/15/24 Unknown Hi story (400 unit) capsule zolpidem 5 mg tablet 5 mg PO QHS 08/15/24 Unknown Histo ry Allergy/AdvReac Type Severity Reaction Status Date / Time metronidazole (From Flagyl) Allergy Hives Verified 09/26/24 15:09 Family History Mother Cancer, Onset Age: 60 pancreatic Aunt Breast cancer, Onset Age: 76 Uncle Cancer Brother Cancer Grandmother Cancer Surgical History History of oophorectomy History of breast biopsy Encounter for insertion of tunneled central venous catheter (CVC) with port Hx of hysterectomy Hx laparoscopic cholecystectomy History of delivery Social History Smoking Status: Never smoker alcohol intake: current alcohol intake frequency: a few times a week substance use type: does not use Diagnosis: Milad Lane is a 59 year-old female diagnosed with clinical stage IIIC (cT2 cN3b M0, ypT0 ypN0) grade 3 invasive ductal carcinoma (ER > 95%, VA 32%, HER2 1???2+ IHC, not amplified on FISH) of the right breast status post screening mammography (01/12/2024), diagnostic right breast mammogram and ultrasound o (more content not included)... Normal [facility] Radiation Oncology Visiton 0 09-02-2024 Radiation Oncology Visit [facility] [address] [place] [address] OFFICE VISIT Date of Service: 09/02/24 0858 MR#: [id number] Acct: [id number] Name: MILAD LANE Rep #: [id number] : 1965 From: Thomas Hanson DO Age/Sex: 59/F Location[place] [facility] Status: Signed Intake Vital Signs 01/19/24 10:26 09/02/24 09:04 Height 5 ft 5 in 5 ft 5 in Weight: 214 lb 237 lb 8 oz BMI 35.6 39.5 BP 147/88 H 140/80 H Blood Pressure Location Rt brachial Lt brachial Position Sitting Sitting Respiration 17 18 Pulse 67 76 Pulse Source Monitor Monitor Temp 98.3 F Temperature Source Temporal Artery Pulse Oximetry (%) 100 95 Oxygen Delivery Method room air room air Intake Visit Reasons: CONSULT - BREAST Is patient in pain?: No Allergies metronidazole (From Flagyl) Allergy (Verified 09/02/24 09:01) Hives Medications ???Medication ???Instructions ???Recorded ???Confirmed ???Type hydrochlorothiazide 25 mg tablet 25 mg PO DAILY 09/09/21 09/02/24 H istory levothyroxine 50 mcg tablet 1 tablet PO DAILY 09/09/21 5 History acetaminophen 325 mg tablet 650 mg PO Q6H PRN 08/15/24 5 History ergocalciferol (vitamin D2) 1,250 1 unit PO .q other week 08/15/24 09/02/24 History mcg (50,000 unit) capsule gabapentin 300 mg capsule 300 mg PO TID 08/15/24 09/02/24 Hi story ibuprofen 400 mg tablet 400 mg PO Q8H PRN 08/15/24 5 History lidocaine-prilocaine 2.5 %-2.5 % 1 applic topical QDAY PRN 08/15/24 09/02/24 History topical cream loratadine 10 mg tablet 10 mg PO QDAY 08/15/24 09/02/24 Hi story magnesium oxide 400 mg (241.3 mg 400 mg PO QDAY 08/15/24 09/02/24 H istory magnesium) tablet omega-3 650 mg-dha 400 mg-epa 200 1 cap PO QDAY 08/15/24 09/02/24 H istory mg-fish oil-vit D3 300 unit capsule vitamin B complex 1 cap PO QDAY 08/15/24 09/02/24 Hi story vitamin E (dl, acetate) 180 mg 360 mg PO QDAY 08/15/24 09/02/24 H istory (400 unit) capsule zolpidem 5 mg tablet 5 mg PO QHS 08/15/24 09/02/24 Hist ory PFSH [facility] Medical History Uterine fibroid Goiter 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+] Malignant neoplasm of overlapping sites of right female breast Invasive ductal carcinoma of right breast Post-menopausal Wears glasses Anxiety Alcohol use Thyroid disease Arthritis Fatty liver Back pain Injury of back Non-smoker Leg cramps History of edema Hypertension History of irregular heartbeat Home Medications ???Medication ???Instructions ???Recorded ???Last Taken ???Type hydrochlorothiazide 25 mg tablet 25 mg PO DAILY 09/09/21 Unknown Hi story levothyroxine 50 mcg tablet 1 tablet PO DAILY 09/09/21 Unknown History acetaminophen 325 mg tablet 650 mg PO Q6H PRN 08/15/24 Unknown History ergocalciferol (vitamin D2) 1,250 1 unit PO .q other week 08/15/24 Unknown History mcg (50,000 unit) capsule gabapentin 300 mg capsule 300 mg PO TID 08/15/24 Unknown His tory ibuprofen 400 mg tablet 400 mg PO Q8H PRN 08/15/24 Unknown History lidocaine-prilocaine 2.5 %-2.5 % 1 applic topical QDAY PRN 08/15/24 Unknown History topical cream loratadine 10 mg tablet 10 mg PO QDAY 08/15/24 Unknown His tory magnesium oxide 400 mg (241.3 mg 400 mg PO QDAY 08/15/24 Unknown Hi story magnesium) tablet omega-3 650 mg-dha 400 mg-epa 200 1 cap PO QDAY 08/15/24 Unknown Hi story mg-fish oil-vit D3 300 unit capsule vitamin B complex 1 cap PO QDAY 08/15/24 Unknown His tory vitamin E (dl, acetate) 180 mg 360 mg PO QDAY 08/15/24 Unknown Hi story (400 unit) capsule zolpidem 5 mg tablet 5 mg PO QHS 08/15/24 Unknown Histo ry Allergy/AdvReac Type Severity Reaction Status Date / Time metronidazole (From Flagyl) Allergy Hives Verified 09/02/24 09:01 Family History Mother Cancer, Onset Age: 60 pancreatic Aunt Breast cancer, Onset Age: 76 Uncle Cancer Brother Cancer Grandmother Cancer Surgical History History of oophorectomy History of breast biopsy Encounter for insertion of tunneled central venous catheter (CVC) with port Hx of hysterectomy Hx laparoscopic cholecystectomy History of delivery Social History Smoking Status: Never smoker alcohol intake: current alcohol intake frequency: a few times a week substance use type: does not use Referring Provider: Taisha Gonzales MD Diagnosis: Milad Lane is a 59 year-old female diagnosed with clinical stage IIIC (cT2 cN3b M0, ypT0 ypN0) grade 3 invasive ductal carcinoma (ER > 95%, VA 32%, HER2 1???2+ IHC, not amplified on FI (more content not included)... Normal [facility] CONTINUOUS CARDIAC MONITORIN G STRIPOrdered By: Unassigned Pacs on 08-09-2024 [facility] Work Phone: MAMMO SPECIMEN RADIOGRAPH BR Parag 08-09-2024 MAMMO SPECIMEN RADIOGRAPH BREAST Normal [facility] MAMMO SPECIMEN RADIOGRAPH BREAST Normal [facility] MG Breast Viewson 08-09-2024 IMPRESSION: Surgical specimen includes biopsy clip and Victorina Body Mechanic. OLOGY EXAM: MAMMO SPECIMEN RADIOGRAPH BREAST, 08/09/2024 12:28 PM CLINICAL INDICATIONS AND HISTORY: Right breast at mass 3:00 2 cm from the nipple at coil clip and 1 victorina piccoloist. C50.911:Breast cancer metastasized to axillary lymph node, right C77.3:Breast cancer metastasized to axillary lymph node, right C50.811:Malignant neoplasm of overlapping sites of right breast in female, estrogen receptor positive Z17.0:Malignant neoplasm of overlapping sites of right breast in female, estrogen receptor positive Specimen radiograph following right breast lumpectomy for invasive ductal carcinoma. COMPARISON: August 09, 2024, August 08, 2024 TECHNIQUE: Radiograph of the surgical specimen. FINDINGS: Specimen radiograph demonstrates the coil-shaped clip, Victorina Body Mechanic, as well as the mass within the specimen. RADIOLOGY Kristine Gil DO - 08/09/2024 EXAM: MAMMO SPECIMEN RADIOGRAPH BREAST, 08/09/2024 12:28 PM CLINICAL INDICATIONS AND HISTORY: Right breast at mass 3:00 2 cm from the nipple at coil clip and 1 victorina piccoloist. C50.911:Breast cancer metastasized to axillary lymph node, right C77.3:Breast cancer metastasized to axillary lymph node, right C50.811:Malignant neoplasm of overlapping sites of right breast in female, estrogen receptor positive Z17.0:Malignant neoplasm of overlapping sites of right breast in female, estrogen receptor positive Specimen radiograph following right breast lumpectomy for invasive ductal carcinoma. COMPARISON: August 09, 2024, August 08, 2024 TECHNIQUE: Radiograph of the surgical specimen. FINDINGS: Specimen radiograph demonstrates the coil-shaped clip, Victorina Body Mechanic, as well as the mass within the specimen. IMPRESSION IMPRESSION: Surgical specimen includes biopsy clip and Victorina Body Mechanic. [facility] IMPRESSION: Surgical specimen of the right axilla includes 2 biopsy clips. OLOGY EXAM: MAMMO SPECIMEN RADIOGRAPH BREAST, 08/09/2024 12:28 PM CLINICAL INDICATIONS AND HISTORY: s/p right Victorina piccoloist N63.10:Mass of right breast, unspecified quadrant COMPARISON: Ultrasound needle localization May 08, 2025 TECHNIQUE: Radiograph of the surgical specimen. FINDINGS: Radiograph of the surgical specimen demonstrates the ribbon-shaped biopsy clip]-shaped biopsy clip. VICTORINA marker not identified. RADIOLOGY Elle Fox MD - 08/09/2024 EXAM: MAMMO SPECIMEN RADIOGRAPH BREAST, 08/09/2024 12:28 PM CLINICAL INDICATIONS AND HISTORY: s/p right Victorina piccoloist N63.10:Mass of right breast, unspecified quadrant COMPARISON: Ultrasound needle localization May 08, 2025 TECHNIQUE: Radiograph of the surgical specimen. FINDINGS: Radiograph of the surgical specimen demonstrates the ribbon-shaped biopsy clip]-shaped biopsy clip. VICTORINA marker not identified. IMPRESSION IMPRESSION: Surgical specimen of the right axilla includes [address] [facility] Radiology Study observation (narrative) [facility] Radiology Study observation (narrative) [facility] MG Breast ViewsOrdered By: Shayla Gil on 08-09-[address] [facility] Work Phone: MG Breast ViewsOrdered By: Margarito Fox on 08-09-[address] [facility] Work Phone: NM Lymphatic vessels Views W radionuclide intra lymphaticon 08-09-2024 IMPRESSION: Radiopharmaceutical administration for intraoperative localization of sentinel lymph nodes. OLOGY EXAM: NUC BREAST/LYM PH GLAND INJECTION, 08/09/2024 10:05 AM CLINICAL INDICATIONS: right sentinel lymph node biopsy TECHNIQUE: Utilizing aseptic technique, 472 microcuries Tc 99m filtered sulfur colloid in 0.4 mL normal saline was injected intradermally in the right breast by Dr. An in anticipation of the intraoperative gamma probe localization of draining lymphatics/lymph nodes. RADIOLOGY Delbert Robert MD - 08/09/2024 EXAM: NUC BREAST/LYMPH GLAND INJECTION, 08/09/2024 10:05 AM CLINICAL INDICATIONS: right sentinel lymph node biopsy TECHNIQUE: Utilizing aseptic technique, 472 microcuries Tc 99m filtered sulfur colloid in 0.4 mL normal saline was injected intradermally in the right breast by Dr. An in anticipation of the intraoperative gamma probe localization of draining lymphatics/lymph nodes. IMPRESSION IMPRESSION: Radiopharmaceutical administration for intraoperative localization of sentinel lymph nodes. [facility] Radiology Study observation (narrative) [facility] NM Lymphatic vessels Views W radionuclide intra lymphaticOrdered By: Sukhdev Robert on 08-09-[address] [facility] Work Phone: NUC BREAST/LYMPH GLAND INJEC TIONon 08-09-2024 NUC BREAST/LYMPH GLAND INJECTION Normal [facility] SURG PATH REQUESTon 08-09-19 Case Report Normal [facility] Comment on above: Result Comment: Surg ical Pathology Report Case: [id number] Provider: Leonila An MD Collected: 08/09/2024 10:49 AMOrdering Location: Perioperative Services at Received: 08/09/2024 01:02 PM [facility] Outpatient CarePathologist: Chris Apple MDIntraop: Kyler Anne, DOSpecimens: A) - SURG PATH, Right axillary sentinel lymph node #1, blue, count 9033, 2 clips in node B) - SURG PATH, Right axillary sentinel lymph node #2, hot, not blue, count 38079 C) - SURG PATH, Right axillary victorina piccoloist for gross only D) - SURG PATH, Right victorina piccoloist localized lumpectomy, short stitch = superior, long stitch = lateral, ink per protoco 1 victorina piccoloist, 1 biopsy clip E) - SURG PATH, New superior margin, clips = new margin F) - SURG PATH, New medial margin, clips = new margin G) - SURG PATH, New anterior margin, clips = new margin H) - SURG PATH, New posterior margin, clips = new margin Performed By: #### S URGP ####[facility] (DEFAULT)[address] [place] [address] Clinical History Normal [facility] Comment on above: Performed By: #### S URGP ####[facility] (DEFAULT)[address] [place] [address] Gross Description Normal [facility] Comment on above: Result Comment: The specimens are received in eight properly labeled containers with the patient's name and accession number.A. The specimen is designated right axillary sentinel lymph node #1, blue, count 9033, 2 clips in node and consists of a 2.6 x 2.2 x 1.0 cm overall piece of fibroadipose tissue. Dissection reveals a 2.2 x 2.1 x 0.7 cm rubbery fat-replaced pink node that is sectioned to reveal partially fat replaced spiculated pink-red cut surfaces. One dragonfly clip and one ribbon clip are present within the node. The node is entirely submitted for frozen sectioning and is resubmitted as received in cassettes A1-3. Only adipose tissue remains in the container. RS 3Cassettes: A1-3, one node trisected, frozen section tissueB. The specimen is designated right axillary sentinel lymph node #2, hot, not blue, count 13000 and consists of a 2.1 x 1.7 x 1.0 cm unoriented piece of adipose tissue. Dissection reveals a 1.6 x 1.1 x 0.5 cm pink rubbery node that was bisected to reveal pink fatty franci cut surfaces. The node is entirely submitted for frozen sectioning and is resubmitted as received in cassette B1. Only adipose tissue remains in the container. RS 1Cassettes: B1, one node bisected, frozen section tissueC. The specimen is designated right axillary Victorina piccoloist for gross only and consists of a 1.3 cm linear silvery metallic medical billing clerk consistent with a Victorina piccoloist. No tissue is present. It is submitted for gross only examination. (P)D. The specimen is designated right Victorina piccoloist localized lumpectomy, short stitch=superior, long stitch=lateral, ink per protocol 1 Victorina piccoloist, 1 biopsy clip and consists of a 15.8 gram oriented piece of fibroadipose tissue measuring 4.6 (ML) x 3.8 (SI) x 2.5 (AP) cm. No skin is present. Specimen is oriented with the short stitch on the superior, long stitch on the lateral aspects, and it is received previously inked as follows: superior - blue, inferior - green, medial - orange, lateral - yellow, anterior - purple, and posterior - black. The specimen is serially sectioned from medial to lateral into six slices. Slice thicknesses are as follows: 1 - 0.7 cm, 2 - 0.7 cm, 3 - 0.8 cm, 4 - 0.6 cm, 5 - 0.8 cm, and 6 - 1.1 cm.An approximately 2.6 (AP) x 1.8 (ML) x 1.4 (SI) cm incredibly ill-defined, variegated pale overton (60%) to hemorrhagic red-brown (40%), peripherally spiculated, fibrous mass is identified spanning slices 2-5 that diffusely abuts the superior, anterior margins and is 0.9 cm from the posterior, 0.6 cm from the inferior, 0.6 cm from the medial, 1.1 cm from the lateral margins. One Victorina piccoloist (slice 2) and one coil clip (slice 3) are retrieved from within the mass. The mass occupies about 30% of the total cut surface of the specimen and is encircled by predominantly fatty breast parenchyma comprised of 90% adipose tissue and 10% (or less) fibrous tissue. No lymph nodes are present. RS 13Cassettes:D1, slice 1 medial and perpendicularD2-3, entire slice 2 with mass to superior, inferior, anterior, and posterior margins, bisectedD4-7, entire slice 3 with mass to superior, inferior, anterior, and posterior margins, quadrisected (orange and yellow = matching ends)D8-11, entire slice 4 with full face of mass to superior, inferior, anterior and posterior margins, quadrisected (orange and yellow indicating matching ends)D12, slice 5, mass with superior and anterior [id number], slice 6, lateral and perpendicular Note: All margins are perpendicular. The mass is entirely submitted. A radiographic image and a diagram are provided with the requisition.Time of specimen removal from patient: 08/09/2024 at 11:38 a.m.Time specimen placed in formalin: 08/09/2024 at 12:03 p.m. Cold Ischemia Time: 25 minutesTime specimen removed from formalin: 08/09/2024 at 2300 Total Fixation Time: 10 hours 57 minutesE. The specimen is designated new superior margin, clips=new margin and consists of a 2.5 x 2.1 x 1.1 cm partially oriented piece of pink-yellow adipose tissue with multiple clips on one aspect designating the new margin. The new margin is inked purple and the old margin/opposite aspect is inked orange. Sectioning reveals pink-yellow fatty cut surfaces. TE 2F. The specimen is designated new medial margin, clips=new margin and consists of a 2.9 x 2.6 x 1.1 cm partially oriented piece of pink-yellow adipose tissue with multiple clips on one aspect designating the new margin. The new margin is inked purple and the old margin/opposite aspect is inked orange. Sectioning reveals pink-yellow fatty cut surfaces. TE 2G. The specimen is designated new anterior margin, clips=new margin and consists of a 2.6 x 2.1 x 0.6 cm partially oriented piece of slightly blue stained yellow adipose tissue with multiple clips on one aspect designating the new margin. The new margin is inked purple and the old margin/opposite aspect is inked orange. Sectioning reveals blue-pink fibrofatty cut surfaces. TE 2H. The specimen is designated new posterior margin, clips=new margin and consists of a 2.1 x 2.1 x 0.6 cm oriented piece of pink-yellow fibroadipose tissue with multiple clips on one aspect designating the new margin. The new margin is inked purple and the old margin/opposite aspect is inked orange. Sectioning reveals pink-yellow fibrofatty cut surfaces. TE 2Lab Use Only: JobID [id number] for this case was: Garret Arceo Performed By: #### S URGP ####[facility] (DEFAULT)[address] [place] [address] Intraoperative Diagnosis Normal [facility] Comment on above: Result Comment: A1. Right axillary sentinel lymph node #1, blue, count 9033, 2 clips in node (Frozen section performed):For Immediate Release [facility] YesOne lymph node with biopsy site changes; no definitive carcinoma identified (A1-3)Note: Reported to Dr. An at 11:04 a.m. on 08/09/2024.B1. Right axillary sentinel lymph node #2, hot, not blue, count 06892 (Frozen section performed):One lymph node negative for carcinomaNote: Reported to Dr. Arango at 11:35 a.m. on 08/09/2024.Intraoperative Auto Camp Attendant: Kyler Anne DO Performed By: #### S URGP ####[facility] (DEFAULT)[address] [place] [address] Microscopic Description Normal [facility] Comment on above: Result Comment: A mi croscopic examination was performed.All controls show appropriate reactivity. All immunohistochemistry (IHC), in situ hybridization (ADELITA), and histochemical tests were developed by and are performed at the [facility] Clinical Laboratory, Histology and IHC Lab, [address] [place] [address]. All Immunofluorescent (IF) tests were developed by and are performed at the [facility] Clinical Laboratory, Renal Division, [address] [place] [address]. All tests reported here, except for PD-L1, have not been cleared by or approved by the [place] Food and Drug Administration (FDA). The laboratory is regulated under CLIA as qualified to perform high-complexity testing. The tests are used for clinical purposes. They should not be regarded as investigational or for research. Performed By: #### S URGP ####[facility] (DEFAULT)[address] [place] [address] Pathologic Diagnosis Normal [facility] Comment on above: Result Comment: Renetta tijerinanel lymph node #1, right axilla, excision:1 lymph node, negative for carcinoma by H&E and AE1/3Histologic evidence of therapy effect is presentBiopsy site changesB. [place] lymph node #2, right axilla, excision:1 lymph node, negative for carcinoma by H&E and AE1/3Negative for histologic evidence of therapy effectC. Right axillary Victorina piccoloist for gross only:Victorina piccoloist, gross examination onlyD. Right breast, Victorina piccoloist localized lumpectomy:Negative for residual invasive or in situ carcinoma, see commentTherapy effect status post neoadjuvant chemotherapyBiopsy site changesSurgical resection margins are negativeComment: A radiograph of the breast specimen was performed to assist in the sectioning of the specimen and the image was reviewed and correlated with the histological findings. The tumor bed grossly measures 2.6 x 1.8 cm.E. New superior margin, re-excision:Breast tissue and surgical margin, negative for carcinomaF. New medial margin, re-excision:Breast tissue and surgical margin, negative for carcinomaG. New anterior margin, re-excision:Breast tissue and surgical margin, negative for carcinomaH. New posterior margin, re-excision:Breast tissue and surgical margin, negative for carcinoma at 1457 EST Performed By: #### S URGP ####[facility] (DEFAULT)[address] [place] [id number] Professional Interpretation Performed at: [facility] Comment on above: Result Comment: Prof essional interpretation performed remotely at a secondary location, address on file. Performed By: #### S URGP ####[facility] (DEFAULT)[address] [place] [id number] GENERAL PROCEDUREon 08-08-19 25 Elle weaver MD - 08/08/2024 3:00 PM EST History and Physical Update: The H&P completed on 02/09/2024 and 07/15/2024 was reviewed and patient was assessed. No changes were noted. Elle Fox MD, 08/08/2024, 3:[address] [facility] Mena Massey - 08/08/2024 2:00 PM EST History and Physical Update: The H&P completed on 07/15/2024 was reviewed and patient was assessed. No changes were noted. Kristine Gil DO, 08/08/2024, 2:[address] [facility] MAMMO GUIDED NEEDLE LOCALIZA TION BREAST RIGHTon 08-08-2024 MAMMO GUIDED NEEDLE LOCALIZATION BREAST RIGHT Normal [facility] MG Breast Viewson 08-08-2024 IMPRESSION: Technically successful Victorina Body Mechanic localization of the right breast. Kristine Gil DO was in the room and participated during all tomlin portions of this procedure. [facility] Facility: [facility], [address] [place] [address], I personally viewed and interpreted these images and I have reviewed and approved this report. OLOGY EXAM: MAMMO GUIDED N EEDLE LOCALIZATION BREAST RIGHT, 08/08/2024 14:58 PM PRE-PROCEDURE DIAGNOSIS: Invasive ductal carcinoma in the right inner central breast. POST-PROCEDURE DIAGNOSIS: Invasive ductal carcinoma in the right inner central breast. PERFORMING PHYSICIAN: Kristine Gil DO TAPPER HELPER: Juanis Cerda DO COMPARISON: Mammography from February 05, 2024 FINDINGS: Consent: Following a thorough discussion of the risks, benefits and alternatives of the procedure written informed consent was obtained. Preparation: Time out was performed. The patient was positioned using the medial approach. The patient's skin was cleansed, and the skin and subcutaneous tissues anesthetized with 1% lidocaine solution. The clip in the inner central breast was localized using mammographic guidance. Procedure: A 7.5 cm Victorina Body Mechanic needle was placed in the right breast from a medial approach. The localization device was deployed. ML and CC images confirm that the Victorina Body Mechanic device is appropriately positioned. The estimated blood loss is none. The patient tolerated the procedure well without evidence of immediate complications. RADIOLOGY Kristine Gil DO - 08/08/2024 EXAM: MAMMO GUIDED NEEDLE LOCALIZATION BREAST RIGHT, 08/08/2024 14:58 PM PRE-PROCEDURE DIAGNOSIS: Invasive ductal carcinoma in the right inner central breast. POST-PROCEDURE DIAGNOSIS: Invasive ductal carcinoma in the right inner central breast. PERFORMING PHYSICIAN: Kristine Gil DO TAPPER HELPER: Juanis Cerda DO COMPARISON: Mammography from February 05, 2024 FINDINGS: Consent: Following a thorough discussion of the risks, benefits and alternatives of the procedure written informed consent was obtained. Preparation: Time out was performed. The patient was positioned using the medial approach. The patient's skin was cleansed, and the skin and subcutaneous tissues anesthetized with 1% lidocaine solution. The clip in the inner central breast was localized using mammographic guidance. Procedure: A 7.5 cm Victorina Body Mechanic needle was placed in the right breast from a medial approach. The localization device was deployed. ML and CC images confirm that the Victorina Body Mechanic device is appropriately positioned. The estimated blood loss is none. The patient tolerated the procedure well without evidence of immediate complications. IMPRESSION IMPRESSION: Technically successful Victorina Body Mechanic localization of the right breast. Kristine Gil DO was in the room and participated during all tomlin portions of this procedure. [facility] Facility: [facility], [address] [place] [address], I personally viewed and interpreted these images and I have reviewed and approved this report. [facility] Radiology Study observation (narrative) [facility] No Panel Informationon 08-[address] [facility] US GUIDED NEEDLE LOC BREAST RIGHTon 08-08-2024 US GUIDED NEEDLE LOC BREAST RIGHT Normal [facility] US Guidance for needle local ization of Breast - righton 08-08-2024 IMPRESSION: Technically successful ultrasound-guided VICTORINA marker localization in the right axilla. Elle Fox M.D. was in the room and participated during all tomlin portions of this procedure. 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 TAPPER HELPER: Dr. Valerio COMPARISON: Bilateral breast MRI July 11, 2024 and right axillary ultrasound February 05, 2024 FINDINGS: Consent: Following a thorough discussion of the risks, benefits and alternatives of the procedure written informed consent was obtained. Time out was performed. Position: The patient was placed in a supine position on the US table and a preliminary US scan was obtained. The abnormality was again identified in the right axilla. Preparation: The patient's skin was cleansed, and the skin and subcutaneous tissues anesthetized with 1% lidocaine solution. Procedure: Utilizing VICTORINA marker deployment device, the previously biopsied right axillary lymph node was targeted under ultrasound guidance. The needle was removed. The estimated blood loss is minimal. The patient tolerated the procedure well without evidence of immediate complications. Post procedural MLO image demonstrates appropriate placement of the VICTORINA marker overlapping the dragonfly biopsy clip, ribbon-shaped biopsy clip and right axillary lymph node. IMPRESSION IMPRESSION: Technically successful ultrasound-guided VICTORINA marker localization in the right axilla. Elle Fox M.D. was in the room and participated during all tomlin portions of this procedure. [facility] Facility: [facility], [address] [place] [address], [facility] Radiology Study observation (narrative) [facility] CBC AND ELECTRONIC DIFFon Basophils (Bld) [#/Vol] K/uL 0.00 - 0.15 K/uL [facility] Basophils/100 WBC (Bld) 0.6 % [facility] Differential cell count method Nom (Bld) Electronic Differential [facility] Eosinophils (Bld) [#/Vol] 0.08 10*3/uL 0.00 - 0.42 K/uL [facility] Eosinophils/100 WBC (Bld) 2.5 % [facility] Erythrocyte distribution width (RBC) [Ratio] 13.8 % 10.8 - 14.9 % [facility] Hematocrit (Bld) [Volume fraction] 34.0 % Low 34.9 - 44.3 % [facility] Hemoglobin (Bld) [Mass/Vol] 11.4 g/dL 11.4 - 15.2 g/dL [facility] Immature granulocytes (Bld) [#/Vol] K/uL NINF - 0.08 K/uL [facility] Immature granulocytes/100 WBC (Bld) 0.3 % [facility] Interpretation and review of laboratory results Abnormal [facility] Lymphocytes (Bld) [#/Vol] 1.06 10*3/uL Low 1.16 - 3.51 K/uL [facility] Lymphocytes/100 WBC (Bld) 33.0 % [facility] MCH (RBC) [Entitic mass] 30.9 pg 25.9 - 33.[address] [facility] MCHC (RBC) [Mass/Vol] 33.5 g/dL 31.4 - 35.9 g/dL [facility] MCV (RBC) [Entitic vol] 92.1 fL 79.6 - 97.[address] [facility] Monocytes (Bld) [#/Vol] 0.27 10*3/uL 0.22 - 0.87 K/uL [facility] Monocytes/100 WBC (Bld) 8.4 % [facility] Neutrophils (Bld) [#/Vol] 1.77 10*3/uL 1.64 - 7.28 K/uL [facility] Nucleated RBC/100 WBC (Bld) [Ratio] 0.0 % [facility] Platelet mean volume (Bld) [Entitic vol] 9.2 fL 8.5 - 12.[address] [facility] Platelets (Bld) [#/Vol] 229 10*3/uL 150 - 393 K/uL [facility] RBC (Bld) [#/Vol] 3.69 10*6/uL Low [facility] Segmented neutrophils/100 WBC (Bld) 55.2 % [facility] WBC (Bld) [#/Vol] 3.21 10*3/uL Low 3.99 - 11.19 K/uL [facility] Abs Baso Auto < Normal 0.00-0.15 [facility] Comment on above: Performed By: #### L [id number] ####[facility] (DEFAULT)[address] [place] [address] Basophils/100 WBC (Bld) 0.6 % Normal [facility] Comment on above: Performed By: #### L [id number] ####[facility] [facility] (DEFAULT)[address] [place] [address] DIFF STATUS Electronic Differential Normal [facility] Comment on above: Performed By: #### L [id number] ####[facility] (DEFAULT)[address] [place] [address] Eosinophils (Bld) [#/Vol] 0.08 10*3/uL Normal 0.00-0.42 [facility] Comment on above: Performed By: #### L [id number] ####[facility] (DEFAULT)[address] [place] [address] Eosinophils/100 WBC (Bld) 2.5 % Normal [facility] Comment on above: Performed By: #### L [id number] ####[facility] (DEFAULT)[address] [place] [address] Hematocrit (Bld) [Volume fraction] 34.0 % Low 34.9-44.3 [facility] Comment on above: Performed By: #### L [id number] ####[facility] (DEFAULT)[address] [place] [address] Hemoglobin (Bld) [Mass/Vol] 11.4 g/dL Normal 11.4-15.2 [facility] Comment on above: Performed By: #### L [id number] ####[facility] (DEFAULT)[address] [place] [address] Immature Grans % 0.3 % Normal [facility] Comment on above: Performed By: #### L [id number] ####[facility] (DEFAULT)[address] [place] [address] Immature Grans Absolute < Normal <=0.08 [facility] Comment on above: Performed By: #### L [id number] ####[facility] (DEFAULT)[address] [place] [address] Lymphocytes (Bld) [#/Vol] 1.06 10*3/uL Low 1.16-3.51 [facility] Comment on above: Performed By: #### L [id number] ####[facility] (DEFAULT)[address] [place] [address], [place] [address] Lymphocytes/100 WBC (Bld) 33.0 % Normal [facility] Comment on above: Performed By: #### L [id number] ####[facility] (DEFAULT)[address] [place] [address] MCV (RBC) [Entitic vol] 92.1 fL Normal 79.6-97.7 [facility] Comment on above: Performed By: #### L [id number] ####[facility] (DEFAULT)[address] [place] [address] Mean Cell Hgb 30.9 pg Normal 25.9-33.9 [facility] Comment on above: Performed By: #### L [id number] ####[facility] (DEFAULT)[address] [place] [address] Mean Cell Hgb Conc 33.5 g/dL Normal 31.4-35.9 [facility] Comment on above: Performed By: #### L [id number] ####[facility] (DEFAULT)[address] [place] [address] Monocytes (Bld) [#/Vol] 0.27 10*3/uL Normal 0.22-0.87 [facility] Comment on above: Performed By: #### L [id number] ####[facility] (DEFAULT)[address] [place] [address] Monocytes/100 WBC (Bld) 8.4 % Normal [facility] Comment on above: Performed By: #### L [id number] ####[facility] (DEFAULT)[address] [place] [address] Nucleated RBC 0.0 /100 WBC Normal <=0.2 [facility] Comment on above: Performed By: #### L [id number] ####[facility] (DEFAULT)[address] [place] [address] Platelet mean volume (Bld) [Entitic vol] 9.2 fL Normal 8.5-12.2 [facility] Comment on above: Performed By: #### L [id number] ####[facility] (DEFAULT)[address] [place] [address] Platelets (Bld) [#/Vol] 229 10*3/uL Normal 150-393 [facility] Comment on above: Performed By: #### L [id number] ####[facility] (DEFAULT)[address] [place] [address] RBC (Bld) [#/Vol] 3.69 10*6/uL Low 3.91-5.04 [facility] Comment on above: Performed By: #### L [id number] ####[facility] (DEFAULT)[address] [place] [address] RBC Distribution 13.8 % Normal 10.8-14.[address] [facility] Comment on above: Performed By: #### L [id number] ####[facility] (DEFAULT)[address] [place] [address] Segs + Bands Auto 55.2 % Normal [facility] Comment on above: Performed By: #### L [id number] ####[facility] (DEFAULT)[address] [place] [address] Segs + Bands,Absolute Auto 1.77 K/uL Normal 1.64-7.28 [facility] Comment on above: Performed By: #### L [id number] ####[facility] (DEFAULT)[address] [place] [address] WBC (Bld) [#/Vol] 3.21 10*3/uL Low 3.99-11.19 [facility] Comment on above: Performed By: #### L [id number] ####[facility] (DEFAULT)[address] [place] [address] MR Breast - bilateral WO and W contrast IVOrdered By: Minh Segura on 07-11-2024 Interpretation and review of laboratory results Abnormal [facility] Work Phone: [facility] Work Phone: MR Breast - bilateral WO and W contrast Jessi 07-11-2024 IMPRESSION: Partial treatment response with significant decrease in size and conspicuity of biopsy-proven invasive ductal carcinoma of the right breast. Evidence of response to therapy with decrease in size of the previously seen axillary lymph nodes. Evidence of response to therapy with interval decrease in size of the previously seen abnormal internal mammary lymph node. There is also significant response to therapy of the enhancing soft tissue lesion at the costochondral junction without dominant residual suspicious mass today. Previously noted prevascular lymphadenopathy no longer seen today, may reflect response to therapy. BI-RADS: 6: Known biopsy proven malignancy Recommendation: Surgical excision when clinically appropriate. Recommendation Laterality: Right I personally viewed and interpreted these images and I have reviewed and approved this report. OLOGY EXAM: MRI BREAST JOSÉ ATERAL WITH AND WITHOUT CONTRAST, 07/11/2024 13:56 PM CLINICAL INDICATIONS AND HISTORY: end of neoadjuvant chemo, please scan to evaulate therapy response C50.911:Breast cancer metastasized to axillary lymph node, right C77.3:Breast cancer metastasized to axillary lymph node, right Patient with biopsy-proven invasive ductal carcinoma within the right breast with biopsy-proven right axillary lymph node metastatic disease presented for breast MRI following neoadjuvant chemotherapy. COMPARISON: MRI BREAST BILATERAL WITH AND WITHOUT CONTRAST February 21, 2024 TECHNIQUE: Axial BLADE (STIR), axial noncontrast T1- weighted, axial dynamic pre- and postcontrast fat-suppressed T1-weighted, delayed postcontrast high-resolution sagittal fat-suppressed T1-weighted images were obtained. Serial subtraction images were generated during post-processing. The images were analyzed on the [employer] CAD software package on an independent workstation. FINDINGS: Amount of fibroglandular tissue: scattered fibroglandular tissue. Background parenchymal enhancement: minimal symmetric. Right breast: Significant decrease in size and conspicuity of prior irregular mass with spiculated margin with small residual delayed enhancing lesion measuring 1.0 AP x 0.4 TR x 0.7 CC cm (series 1023, image 87 and series 17, image 211), previously 3.3 x 3.0 x 2.4 cm. No other interval suspicious architectural distortion or mass lesion. Susceptibility artifact corresponding to biopsy clip in the right breast (series 2 image 80) in appropriate position just superior to the residual enhancement. Left breast: No evidence for architectural distortion or mass lesion within the left breast. Axilla: Decreased size and conspicuity of right axillary lymph nodes with index right level 1 axillary lymph node measuring 0.8 cm x 0.9 cm (series 1021, image 191), previously 1.7 x 1.6 cm with biopsy marker in place. This measurement may be overestimated due to susceptibility artifact from biopsy clip. Additional index right level 1 lymph node measures 1.2 cm x 0.6 cm (series 1021, image 191), previously 1.6 x 1.0 cm. No new or progressive lymphadenopathy. No left axillary lymphadenopathy. Internal Mammary Chain: Near resolution of prior right internal mammary lymphadenopathy with index lymph node measuring 0.3 cm (series 1023 image 23), previously 0.8 cm. Extramammary soft tissues: Left-sided chest port. Resolution of prior enhancing soft tissue lesion along the internal aspect of the right fourth and fifth ribs at the costochondral junction with no discrete measurable residual component. Resolution of prior prevascular lymphadenopathy with no residual measurable component Multinodular thyroid. RADIOLOGY Minh Segura M D - 07/11/2024 EXAM: MRI BREAST BILATERAL WITH AND WITHOUT CONTRAST, 07/11/2024 13:56 PM CLINICAL INDICATIONS AND HISTORY: end of neoadjuvant chemo, please scan to evaulate therapy response C50.911:Breast cancer metastasized to axillary lymph node, right C77.3:Breast cancer metastasized to axillary lymph node, right Patient with biopsy-proven invasive ductal carcinoma within the right breast with biopsy-proven right axillary lymph node metastatic disease presented for breast MRI following neoadjuvant chemotherapy. COMPARISON: MRI BREAST BILATERAL WITH AND WITHOUT CONTRAST February 21, 2024 TECHNIQUE: Axial BLADE (STIR), axial noncontrast T1- weighted, axial dynamic pre- and postcontrast fat-suppressed T1-weighted, delayed postcontrast high-resolution sagittal fat-suppressed T1-weighted images were obtained. Serial subtraction images were generated during post-processing. The images were analyzed on the [employer] CAD software package on an independent workstation. FINDINGS: Amount of fibroglandular tissue: scattered fibroglandular tissue. Background parenchymal enhancement: minimal symmetric. Right breast: Significant decrease in size and conspicuity of prior irregular mass with spiculated margin with small residual delayed enhancing lesion measuring 1.0 AP x 0.4 TR x 0.7 CC cm (series 1023, image 87 and series 17, image 211), previously 3.3 x 3.0 x 2.4 cm. No other interval suspicious architectural distortion or mass lesion. Susceptibility artifact corresponding to biopsy clip in the right breast (series 2 image 80) in appropriate position just superior to the residual enhancement. Left breast: No evidence for architectural distortion or mass lesion within the left breast. Axilla: Decreased size and conspicuity of right axillary lymph nodes with index right level 1 axillary lymph node measuring 0.8 cm x 0.9 cm (series 1021, image 191), previously 1.7 x 1.6 cm with biopsy marker in place. This measurement may be overestimated due to susceptibility artifact from biopsy clip. Additional index right level 1 lymph node measures 1.2 cm x 0.6 cm (series 1021, image 191), previously 1.6 x 1.0 cm. No new or progressive lymphadenopathy. No left axillary lymphadenopathy. Internal Mammary Chain: Near resolution of prior right internal mammary lymphadenopathy with index lymph node measuring 0.3 cm (series 1023 image 23), previously 0.8 cm. Extramammary soft tissues: Left-sided chest port. Resolution of prior enhancing soft tissue lesion along the internal aspect of the right fourth and fifth ribs at the costochondral junction with no discrete measurable residual component. Resolution of prior prevascular lymphadenopathy with no residual measurable component Multinodular thyroid. IMPRESSION IMPRESSION: Partial treatment response with significant decrease in size and conspicuity of biopsy-proven invasive ductal carcinoma of the right breast. Evidence of response to therapy with decrease in size of the previously seen axillary lymph nodes. Evidence of response to therapy with interval decrease in size of the previously seen abnormal internal mammary lymph node. There is also significant response to therapy of the enhancing soft tissue lesion at the costochondral junction without dominant residual suspicious mass today. Previously noted prevascular lymphadenopathy no longer seen today, may reflect response to therapy. BI-RADS: 6: Known biopsy proven malignancy Recommendation: Surgical excision when clinically appropriate. Recommendation Laterality: Right I personally viewed and interpreted these images and I have reviewed and approved this report. [facility] Radiology Study observation (narrative) [facility] MRI BREAST BILATERAL WITH AN D WITHOUT CONTRASTon 07-11-2024 MRI BREAST BILATERAL WITH AND WITHOUT CONTRAST Abnormal [facility] CBC AND ELECTRONIC DIFFon Basophils (Bld) [#/Vol] K/uL 0.00 - 0.15 K/uL [facility] Basophils/100 WBC (Bld) 1.0 % [facility] Differential cell count method Nom (Bld) Electronic Differential [facility] Eosinophils (Bld) [#/Vol] 0.11 10*3/uL 0.00 - 0.42 K/uL [facility] Eosinophils/100 WBC (Bld) 3.5 % [facility] Erythrocyte distribution width (RBC) [Ratio] 13.7 % 10.8 - 14.9 % [facility] Hematocrit (Bld) [Volume fraction] 33.1 % Low 34.9 - 44.3 % [facility] Hemoglobin (Bld) [Mass/Vol] 11.1 g/dL Low 11.4 - 15.2 g/dL [facility] Immature granulocytes (Bld) [#/Vol] K/uL NINF - 0.08 K/uL [facility] Immature granulocytes/100 WBC (Bld) 0.3 % [facility] Interpretation and review of laboratory results Abnormal [facility] Lymphocytes (Bld) [#/Vol] 1.05 10*3/uL Low 1.16 - 3.51 K/uL [facility] Lymphocytes/100 WBC (Bld) 33.3 % [facility] MCH (RBC) [Entitic mass] 30.9 pg 25.9 - 33.[address] [facility] MCHC (RBC) [Mass/Vol] 33.5 g/dL 31.4 - 35.9 g/dL [facility] MCV (RBC) [Entitic vol] 92.2 fL 79.6 - 97.[address] [facility] Monocytes (Bld) [#/Vol] 0.36 10*3/uL 0.22 - 0.87 K/uL [facility] Monocytes/100 WBC (Bld) 11.4 % [facility] Neutrophils (Bld) [#/Vol] 1.59 10*3/uL Low 1.64 - 7.28 K/uL [facility] Nucleated RBC/100 WBC (Bld) [Ratio] 0.0 % [facility] Platelet mean volume (Bld) [Entitic vol] 9.6 fL 8.5 - 12.[address] [facility] Platelets (Bld) [#/Vol] 217 10*3/uL 150 - 393 K/uL [facility] RBC (Bld) [#/Vol] 3.59 10*6/uL Low [facility] Segmented neutrophils/100 WBC (Bld) 50.5 % [facility] WBC (Bld) [#/Vol] 3.15 10*3/uL Low 3.99 - 11.19 K/uL [facility] Abs Baso Auto < Normal 0.00-0.15 [facility] Comment on above: Performed By: #### L [id number] ####[facility] (DEFAULT)[address] [place] [address] Basophils/100 WBC (Bld) 1.0 % Normal [facility] Comment on above: Performed By: #### L [id number] ####[facility] (DEFAULT)[address] [place] [address] DIFF STATUS Electronic Differential Normal [facility] Comment on above: Performed By: #### L [id number] ####[facility] (DEFAULT)[address] [place] [address] Eosinophils (Bld) [#/Vol] 0.11 10*3/uL Normal 0.00-0.42 [facility] Comment on above: Performed By: #### L [id number] ####[facility] (DEFAULT)[address] [place] [address] Eosinophils/100 WBC (Bld) 3.5 % Normal [facility] Comment on above: Performed By: #### L [id number] ####[facility] (DEFAULT)[address] [place] [address] Hematocrit (Bld) [Volume fraction] 33.1 % Low 34.9-44.3 [facility] Comment on above: Performed By: #### L [id number] ####[facility] (DEFAULT)[address] [place] [address] Hemoglobin (Bld) [Mass/Vol] 11.1 g/dL Low 11.4-15.2 [facility] Comment on above: Performed By: #### L [id number] ####[facility] (DEFAULT)[address] [place] [address] Immature Grans % 0.3 % Normal [facility] Comment on above: Performed By: #### L [id number] ####[facility] (DEFAULT)[address] [place] [address] Immature Grans Absolute < Normal <=0.08 [facility] Comment on above: Performed By: #### L [id number] ####[facility] (DEFAULT)[address] [place] [address], [place] [address] Lymphocytes (Bld) [#/Vol] 1.05 10*3/uL Low 1.16-3.51 [facility] Comment on above: Performed By: #### L [id number] ####[facility] (DEFAULT)[address] [place] [address], [place] [address] Lymphocytes/100 WBC (Bld) 33.3 % Normal [facility] Comment on above: Performed By: #### L [id number] ####[facility] (DEFAULT)[address] [place] [address], [place] [address] MCV (RBC) [Entitic vol] 92.2 fL Normal 79.6-97.7 [facility] Comment on above: Performed By: #### L [id number] ####[facility] (DEFAULT)[address] [place] [address] Mean Cell Hgb 30.9 pg Normal 25.9-33.9 [facility] Comment on above: Performed By: #### L [id number] ####[facility] (DEFAULT)[address] [place] [address], [place] [address] Mean Cell Hgb Conc 33.5 g/dL Normal 31.4-35.9 [facility] Comment on above: Performed By: #### L [id number] ####[facility] (DEFAULT)[address] [place] [address] Monocytes (Bld) [#/Vol] 0.36 10*3/uL Normal 0.22-0.87 [facility] Comment on above: Performed By: #### L [id number] ####[facility] (DEFAULT)[address] [place] [address] Monocytes/100 WBC (Bld) 11.4 % Normal [facility] Comment on above: Performed By: #### L [id number] ####[facility] (DEFAULT)[address] [place] [address] Nucleated RBC 0.0 /100 WBC Normal <=0.2 [facility] Comment on above: Performed By: #### L [id number] ####[facility] (DEFAULT)[address] [place] [address] Platelet mean volume (Bld) [Entitic vol] 9.6 fL Normal 8.5-12.2 [facility] Comment on above: Performed By: #### L [id number] ####[facility] (DEFAULT)[address] [place] [address] Platelets (Bld) [#/Vol] 217 10*3/uL Normal 150-393 [facility] Comment on above: Performed By: #### L [id number] ####[facility] (DEFAULT)[address] [place] [address] RBC (Bld) [#/Vol] 3.59 10*6/uL Low 3.91-5.04 [facility] Comment on above: Performed By: #### L [id number] ####[facility] (DEFAULT)[address] [place] [address] RBC Distribution 13.7 % Normal 10.8-14.[address] [facility] Comment on above: Performed By: #### L [id number] ####[facility] (DEFAULT)[address] [place] [address] Segs + Bands Auto 50.5 % Normal [facility] Comment on above: Performed By: #### L [id number] ####[facility] (DEFAULT)[address] [place] [address], [place] [address] Segs + Bands,Absolute Auto 1.59 K/uL Low 1.64-7.28 [facility] Comment on above: Performed By: #### L [id number] ####[facility] (DEFAULT)[address] [place] [address] WBC (Bld) [#/Vol] 3.15 10*3/uL Low 3.99-11.19 [facility] Comment on above: Performed By: #### L [id number] ####[facility] (DEFAULT)[address] [place] [address] CBC AND ELECTRONIC DIFFon Erythrocyte distribution width (RBC) [Ratio] 13.8 % 10.8 - 14.9 % [facility] Hematocrit (Bld) [Volume fraction] 32.6 % Low 34.9 - 44.3 % [facility] Hemoglobin (Bld) [Mass/Vol] 10.9 g/dL Low 11.4 - 15.2 g/dL [facility] MCH (RBC) [Entitic mass] 31.5 pg 25.9 - 33.[address] [facility] MCHC (RBC) [Mass/Vol] 33.4 g/dL 31.4 - 35.9 g/dL [facility] MCV (RBC) [Entitic vol] 94.2 fL 79.6 - 97.[address] [facility] Platelet mean volume (Bld) [Entitic vol] 9.3 fL 8.5 - 12.[address] [facility] Comment on above: This is an appended report. These results have been appended to a previously preliminary verified report. Platelets (Bld) [#/Vol] 214 10*3/uL 150 - 393 K/uL [facility] Comment on above: This is an appended report. These results have been appended to a previously preliminary verified report. RBC (Bld) [#/Vol] 3.46 10*6/uL Low [facility] WBC (Bld) [#/Vol] 2.83 10*3/uL Low 3.99 - 11.19 K/uL [facility] Comment on above: This is an appended report. These results have been appended to a previously preliminary verified report. Hematocrit (Bld) [Volume fraction] 32.6 % Low 34.9-44.3 [facility] Comment on above: Performed By: #### L [id number] ####[facility] (DEFAULT)[address] [place] [address] Hemoglobin (Bld) [Mass/Vol] 10.9 g/dL Low 11.4-15.2 [facility] Comment on above: Performed By: #### L [id number] ####[facility] (DEFAULT)[address] [place] [address] MCV (RBC) [Entitic vol] 94.2 fL Normal 79.6-97.7 [facility] Comment on above: Performed By: #### L [id number] ####[facility] (DEFAULT)[address] [place] [address], [place] [address] Mean Cell Hgb 31.5 pg Normal 25.9-33.9 [facility] Comment on above: Performed By: #### L [id number] ####[facility] (DEFAULT)[address] [place] [address] Mean Cell Hgb Conc 33.4 g/dL Normal 31.4-35.9 [facility] Comment on above: Performed By: #### L [id number] ####[facility] (DEFAULT)[address] [place] [address], [place] [address] Platelet mean volume (Bld) [Entitic vol] 9.3 fL Normal 8.5-12.2 [facility] Comment on above: Result Comment: This is an appended report. These results have been appended to a previously preliminary verified report. Performed By: #### L [id number] ####[facility] (DEFAULT)[address] [place] [address], [place] [address] Platelets (Bld) [#/Vol] 214 10*3/uL Normal 150-393 [facility] Comment on above: Result Comment: This is an appended report. These results have been appended to a previously preliminary verified report. Performed By: #### L [id number] ####[facility] (DEFAULT)[address] [place] [address] RBC (Bld) [#/Vol] 3.46 10*6/uL Low 3.91-5.04 [facility] Comment on above: Performed By: #### L [id number] ####[facility] (DEFAULT)[address] [place] [address] RBC Distribution 13.8 % Normal 10.8-14.[address] [facility] Comment on above: Performed By: #### L [id number] ####[facility] (DEFAULT)[address] [place] [address] WBC (Bld) [#/Vol] 2.83 10*3/uL Low 3.99-11.19 [facility] Comment on above: Result Comment: This is an appended report. These results have been appended to a previously preliminary verified report. Performed By: #### L [id number] ####[facility] (DEFAULT)[address] [place] [address] CMPN WITHOUT GLUCOSEon 06-28 Albumin [Mass/Vol] 4.1 g/dL 3.5 - 5.0 g/dL [facility] [facility] ALP [Catalytic activity/Vol] 58 U/L 32 - 126 U/L [facility] ALT [Catalytic activity/Vol] 20 U/L 9 - 48 U/L [facility] Anion gap [Moles/Vol] 9 mmol/L 7 - 17 mmol/L [facility] AST [Catalytic activity/Vol] 18 U/L 10 - 39 U/L [facility] Bilirubin [Mass/Vol] 0.4 mg/dL NINF - 1.5 mg/dL [facility] Calcium [Mass/Vol] 8.7 mg/dL 8.6 - 10. 5 mg/dL [facility] Chloride [Moles/Vol] 104 mmol/L 98 - 10 8 mmol/L [facility] CO2 [Moles/Vol] 28 mmol/L 21 - 31 mmol/L [facility] Creatinine [Mass/Vol] 0.50 mg/dL 0.50 - 1.20 mg/dL [facility] eGFR, CKD-EPI, Female - PINF [facility] Comment on above: Reported eGFR is bas ed on the CKD-EPI 2020 equation using creatinine, age, and sex. Interpretation and review of laboratory results Abnormal [facility] Potassium [Moles/Vol] 3.9 mmol/L 3.5 - 5.0 mmol/L [facility] Protein [Mass/Vol] 6.3 g/dL Low 6.4 - 8.3 g/dL [facility] Sodium [Moles/Vol] 137 mmol/L 135 - 145 mmol/L [facility] Urea nitrogen [Mass/Vol] 12 mg/dL 7 - 25 mg/dL [facility] Urea nitrogen/Creatinine [Mass ratio] 24 mg/mg [facility] Albumin [Mass/Vol] 4.1 g/dL Normal 3.5-5.0 [facility] Comment on above: Performed By: #### C MPNG, GLUC ####[facility] (DEFAULT)[address] [place] [address] ALP [Catalytic activity/Vol] 58 U/L Normal 32-126 [facility] Comment on above: Performed By: #### C MPNG, GLUC ####[facility] (DEFAULT)[address] [place] [address] ALT [Catalytic activity/Vol] 20 U/L Normal 9-48 [facility] Comment on above: Performed By: #### C MPNG, GLUC ####[facility] (DEFAULT)[address] [place] [address] Anion gap [Moles/Vol] 9 mmol/L Normal 7-17 [facility] Comment on above: Performed By: #### C MPNG, GLUC ####[facility] (DEFAULT)[address] [place] [address] AST [Catalytic activity/Vol] 18 U/L Normal 10-39 [facility] Comment on above: Performed By: #### C MPNG, GLUC ####[facility] (DEFAULT)[address] [place] [address] Bilirubin [Mass/Vol] 0.4 mg/dL Normal <1.5 [facility] Comment on above: Performed By: #### C MPNG, GLUC ####[facility] (DEFAULT)[address] [place] [address] Calcium [Mass/Vol] 8.7 mg/dL Normal 8.6-10.5 [facility] Comment on above: Performed By: #### C MPNG, GLUC ####[facility] (DEFAULT)[address] [place] [address] Chloride [Moles/Vol] 104 mmol/L Normal 98-108 [facility] Comment on above: Performed By: #### C MPNG, GLUC ####[facility] (DEFAULT)[address] [place] [address] CO2 [Moles/Vol] 28 mmol/L Normal 21-31 [facility] Comment on above: Performed By: #### C MPNG, GLUC ####[facility] (DEFAULT)[address] [place] [address] Creatinine [Mass/Vol] 0.50 mg/dL Normal 0.50-1.20 [facility] Comment on above: Performed By: #### C MPNG, GLUC ####[facility] (DEFAULT)[address] [place] [address] eGFR, CKD-EPI, Female > Normal >=60 [facility] Comment on above: Result Comment: Repo rted eGFR is based on the CKD-EPI 2020 equation using creatinine, age, and sex. Performed By: #### C MPNG, GLUC ####[facility] (DEFAULT)[address] [place] [address] Potassium [Moles/Vol] 3.9 mmol/L Normal 3.5-5.0 [facility] Comment on above: Performed By: #### C MPNG, GLUC ####[facility] (DEFAULT)[address] [place] [address] Protein [Mass/Vol] 6.3 g/dL Low 6.4-8.3 [facility] Comment on above: Performed By: #### C MPNG, GLUC ####[facility] (DEFAULT)[address] [place] [address] Sodium [Moles/Vol] 137 mmol/L Normal 135-145 [facility] Comment on above: Performed By: #### C MPNG, GLUC ####[facility] (DEFAULT)[address] [place] [address] Urea nitrogen [Mass/Vol] 12 mg/dL Normal 7-25 [facility] Comment on above: Performed By: #### C MPNG, GLUC ####[facility] (DEFAULT)[address] [place] [address] Urea nitrogen/Creatinine [Mass ratio] 24 mg/mg Normal [facility] Comment on above: Performed By: #### C MPNG, GLUC ####[facility] (DEFAULT)[address] [place] [address], [place] [address] GLUCOSEon 06-28-2024 Glucose [Mass/Vol] 81 mg/dL 70 - 99 mg/dL [facility] Interpretation and review of laboratory results Normal [facility] Glucose [Mass/Vol] 81 mg/dL Normal 70-99 [facility] Comment on above: Order Comment: If [place] is diabetic, on steroids, on olanzapine, or on a checkpoint inhibitor (atezolizumab, pembrolizumab, nivolumab, etc.).For screening of diabetes Z13.1 Performed By: #### C MPNG, GLUC ####[facility] (DEFAULT)[address] [place] [address] MANUAL DIFFon 06-28-2024 Band form neutrophils/100 WBC (Bld) 0.0 % [facility] Basophils (Bld) [#/Vol] 0.03 10*3/uL 0.00 - 0.15 K/uL [facility] Basophils/100 WBC (Bld) 1.0 % [facility] Differential cell count method Nom (Bld) Manual Differential [facility] Eosinophils (Bld) [#/Vol] 0.11 10*3/uL [facility] Eosinophils/100 WBC (Bld) 4.0 % [facility] Lymphocytes (Bld) [#/Vol] 0.96 10*3/uL Low 1.16 - 3.51 K/uL [facility] Lymphocytes/100 WBC (Bld) 34.0 % [facility] Monocytes (Bld) [#/Vol] 0.11 10*3/uL Low 0.22 - 0.87 K/uL [facility] Monocytes/100 WBC (Bld) 4.0 % [facility] Neutrophils (Bld) [#/Vol] 1.61 10*3/uL Low 1.64 - 7.28 K/uL [facility] Platelets Estimate (Bld) [#/Vol] Automated platelet count confirmed by manual slide review [facility] RBC morphology finding Nom (Bld) RBC INDICES CONFIRMED WITH MANUAL SLIDE REVIEW [facility] Segmented neutrophils/100 WBC (Bld) 57.0 % [facility] No Panel Informationon 06-28 Interpretation and review of laboratory results Abnormal [facility] CBC AND ELECTRONIC DIFFon Basophils (Bld) [#/Vol] K/uL 0.00 - 0.15 K/uL [facility] Basophils/100 WBC (Bld) 0.6 % [facility] Differential cell count method Nom (Bld) Electronic Differential [facility] Eosinophils (Bld) [#/Vol] 0.12 10*3/uL 0.00 - 0.42 K/uL [facility] Eosinophils/100 WBC (Bld) 3.7 % [facility] Erythrocyte distribution width (RBC) [Ratio] 13.2 % 10.8 - 14.9 % [facility] Hematocrit (Bld) [Volume fraction] 32.4 % Low 34.9 - 44.3 % [facility] Hemoglobin (Bld) [Mass/Vol] 11.0 g/dL Low 11.4 - 15.2 g/dL [facility] Immature granulocytes (Bld) [#/Vol] K/uL NINF - 0.08 K/uL [facility] Immature granulocytes/100 WBC (Bld) 0.3 % [facility] Interpretation and review of laboratory results Abnormal [facility] Lymphocytes (Bld) [#/Vol] 0.95 10*3/uL Low 1.16 - 3.51 K/uL [facility] Lymphocytes/100 WBC (Bld) 29.2 % [facility] MCH (RBC) [Entitic mass] 31.3 pg 25.9 - 33.[address] [facility] MCHC (RBC) [Mass/Vol] 34.0 g/dL 31.4 - 35.9 g/dL [facility] MCV (RBC) [Entitic vol] 92.3 fL 79.6 - 97.[address] [facility] Monocytes (Bld) [#/Vol] 0.27 10*3/uL 0.22 - 0.87 K/uL [facility] Monocytes/100 WBC (Bld) 8.3 % [facility] Neutrophils (Bld) [#/Vol] 1.88 10*3/uL 1.64 - 7.28 K/uL [facility] Nucleated RBC/100 WBC (Bld) [Ratio] 0.0 % NINF [facility] Platelet mean volume (Bld) [Entitic vol] 8.9 fL 8.5 - 12.[address] [facility] Platelets (Bld) [#/Vol] 193 10*3/uL 150 - 393 K/uL [facility] RBC (Bld) [#/Vol] 3.51 10*6/uL Low [facility] Segmented neutrophils/100 WBC (Bld) 57.9 % [facility] WBC (Bld) [#/Vol] 3.25 10*3/uL Low 3.99 - 11.19 K/uL [facility] Abs Baso Auto < Normal 0.00-0.15 [facility] Comment on above: Performed By: #### L [id number] ####[facility] (DEFAULT)[address] [place] [address] Basophils/100 WBC (Bld) 0.6 % Normal [facility] Comment on above: Performed By: #### L [id number] ####[facility] (DEFAULT)[address] [place] [address] [place] [address] DIFF STATUS Electronic Differential Normal [facility] Comment on above: Performed By: #### L [id number] ####[facility] (DEFAULT)[address] [place] [address] Eosinophils (Bld) [#/Vol] 0.12 10*3/uL Normal 0.00-0.42 [facility] Comment on above: Performed By: #### L [id number] ####[facility] (DEFAULT)[address] [place] [address] Eosinophils/100 WBC (Bld) 3.7 % Normal [facility] Comment on above: Performed By: #### L [id number] ####[facility] (DEFAULT)[address] [place] [address] Hematocrit (Bld) [Volume fraction] 32.4 % Low 34.9-44.3 [facility] Comment on above: Performed By: #### L [id number] ####[facility] (DEFAULT)[address] [place] [address] Hemoglobin (Bld) [Mass/Vol] 11.0 g/dL Low 11.4-15.2 [facility] Comment on above: Performed By: #### L [id number] ####[facility] (DEFAULT)[address] [place] [address] Immature Grans % 0.3 % Normal [facility] Comment on above: Performed By: #### L [id number] ####[facility] (DEFAULT)[address] [place] [address] Immature Grans Absolute < Normal <=0.08 [facility] Comment on above: Performed By: #### L [id number] ####[facility] (DEFAULT)[address] [place] [address] Lymphocytes (Bld) [#/Vol] 0.95 10*3/uL Low 1.16-3.51 [facility] Comment on above: Performed By: #### L [id number] ####[facility] (DEFAULT)[address] [place] [address] Lymphocytes/100 WBC (Bld) 29.2 % Normal [facility] Comment on above: Performed By: #### L [id number] ####[facility] (DEFAULT)[address] [place] [address] MCV (RBC) [Entitic vol] 92.3 fL Normal 79.6-97.7 [facility] Comment on above: Performed By: #### L [id number] ####[facility] (DEFAULT)[address] [place] [address] Mean Cell Hgb 31.3 pg Normal 25.9-33.9 [facility] Comment on above: Performed By: #### L [id number] ####[facility] (DEFAULT)[address] [place] [address] Mean Cell Hgb Conc 34.0 g/dL Normal 31.4-35.9 [facility] Comment on above: Performed By: #### L [id number] ####[facility] (DEFAULT)[address] [place] [address] Monocytes (Bld) [#/Vol] 0.27 10*3/uL Normal 0.22-0.87 [facility] Comment on above: Performed By: #### L [id number] ####[facility] (DEFAULT)[address] [place] [address] Monocytes/100 WBC (Bld) 8.3 % Normal [facility] Comment on above: Performed By: #### L [id number] ####[facility] (DEFAULT)[address] [place] [address] Nucleated RBC 0.0 /100 WBC Normal <=0.2 [facility] Comment on above: Performed By: #### L [id number] ####[facility] (DEFAULT)[address] [place] [address] Platelet mean volume (Bld) [Entitic vol] 8.9 fL Normal 8.5-12.2 [facility] Comment on above: Performed By: #### L [id number] ####[facility] (DEFAULT)[address] [place] [address] Platelets (Bld) [#/Vol] 193 10*3/uL Normal 150-393 [facility] Comment on above: Performed By: #### L [id number] ####[facility] (DEFAULT)[address] [place] [address] RBC (Bld) [#/Vol] 3.51 10*6/uL Low 3.91-5.04 [facility] Comment on above: Performed By: #### L [id number] ####[facility] (DEFAULT)[address] [place] [address] RBC Distribution 13.2 % Normal 10.8-14.[address] [facility] Comment on above: Performed By: #### L [id number] ####[facility] (DEFAULT)[address] [place] [address] Segs + Bands Auto 57.9 % Normal [facility] Comment on above: Performed By: #### L [id number] ####[facility] (DEFAULT)[address] [place] [address] Segs + Bands,Absolute Auto 1.88 K/uL Normal 1.64-7.28 [facility] Comment on above: Performed By: #### L [id number] ####[facility] (DEFAULT)[address] [place] [address] WBC (Bld) [#/Vol] 3.25 10*3/uL Low 3.99-11.19 [facility] Comment on above: Performed By: #### L [id number] ####[facility] (DEFAULT)[address] [place] [address] CBC AND ELECTRONIC DIFFon Basophils (Bld) [#/Vol] K/uL 0.00 - 0.15 K/uL [facility] Basophils/100 WBC (Bld) 0.6 % [facility] Differential cell count method Nom (Bld) Electronic Differential [facility] Eosinophils (Bld) [#/Vol] 0.07 10*3/uL 0.00 - 0.42 K/uL [facility] Eosinophils/100 WBC (Bld) 2.0 % [facility] Erythrocyte distribution width (RBC) [Ratio] 14.1 % 10.8 - 14.9 % [facility] Hematocrit (Bld) [Volume fraction] 32.6 % Low 34.9 - 44.3 % [facility] Hemoglobin (Bld) [Mass/Vol] 10.9 g/dL Low 11.4 - 15.2 g/dL [facility] Immature granulocytes (Bld) [#/Vol] K/uL NINF - 0.08 K/uL [facility] Immature granulocytes/100 WBC (Bld) 0.3 % [facility] Interpretation and review of laboratory results Abnormal [facility] Lymphocytes (Bld) [#/Vol] 0.93 10*3/uL Low 1.16 - 3.51 K/uL [facility] Lymphocytes/100 WBC (Bld) 26.1 % [facility] MCH (RBC) [Entitic mass] 31.4 pg 25.9 - 33.[address] [facility] MCHC (RBC) [Mass/Vol] 33.4 g/dL 31.4 - 35.9 g/dL [facility] MCV (RBC) [Entitic vol] 93.9 fL 79.6 - 97.[address] [facility] Monocytes (Bld) [#/Vol] 0.40 10*3/uL 0.22 - 0.87 K/uL [facility] Monocytes/100 WBC (Bld) 11.2 % [facility] Neutrophils (Bld) [#/Vol] 2.13 10*3/uL 1.64 - 7.28 K/uL [facility] Nucleated RBC/100 WBC (Bld) [Ratio] 0.0 % [facility] Platelet mean volume (Bld) [Entitic vol] 8.9 fL 8.5 - 12.[address] [facility] Platelets (Bld) [#/Vol] 223 10*3/uL 150 - 393 K/uL [facility] RBC (Bld) [#/Vol] 3.47 10*6/uL Low [facility] Segmented neutrophils/100 WBC (Bld) 59.8 % [facility] WBC (Bld) [#/Vol] 3.56 10*3/uL Low 3.99 - 11.19 K/uL [facility] Abs Baso Auto < Normal 0.00-0.15 [facility] Comment on above: Performed By: #### L [id number] ####[facility] (DEFAULT)[address] [place] [address] Basophils/100 WBC (Bld) 0.6 % Normal [facility] Comment on above: Performed By: #### L [id number] ####[facility] (DEFAULT)[address] [place] [address] DIFF STATUS Electronic Differential Normal [facility] Comment on above: Performed By: #### L [id number] ####[facility] (DEFAULT)[address] [place] [address], [place] [address] Eosinophils (Bld) [#/Vol] 0.07 10*3/uL Normal 0.00-0.42 [facility] Comment on above: Performed By: #### L [id number] ####[facility] (DEFAULT)[address] [place] [address] Eosinophils/100 WBC (Bld) 2.0 % Normal [facility] Comment on above: Performed By: #### L [id number] ####[facility] (DEFAULT)[address] [place] [address] Hematocrit (Bld) [Volume fraction] 32.6 % Low 34.9-44.3 [facility] Comment on above: Performed By: #### L [id number] ####[facility] (DEFAULT)[address] [place] [address] Hemoglobin (Bld) [Mass/Vol] 10.9 g/dL Low 11.4-15.2 [facility] Comment on above: Performed By: #### L [id number] ####[facility] (DEFAULT)[address] [place] [address] Immature Grans % 0.3 % Normal [facility] Comment on above: Performed By: #### L [id number] ####[facility] (DEFAULT)[address] [place], [place] [address], [place] [address] Immature Grans Absolute < Normal <=0.08 [facility] Comment on above: Performed By: #### L [id number] ####[facility] (DEFAULT)[address] [place] [address] Lymphocytes (Bld) [#/Vol] 0.93 10*3/uL Low 1.16-3.51 [facility] Comment on above: Performed By: #### L [id number] ####[facility] (DEFAULT)[address] [place] [address] Lymphocytes/100 WBC (Bld) 26.1 % Normal [facility] Comment on above: Performed By: #### L [id number] ####[facility] (DEFAULT)[address] [place] [address] MCV (RBC) [Entitic vol] 93.9 fL Normal 79.6-97.7 [facility] Comment on above: Performed By: #### L [id number] ####[facility] (DEFAULT)[address] [place] [address] Mean Cell Hgb 31.4 pg Normal 25.9-33.9 [facility] Comment on above: Performed By: #### L [id number] ####[facility] (DEFAULT)[address] [place] [address] Mean Cell Hgb Conc 33.4 g/dL Normal 31.4-35.9 [facility] Comment on above: Performed By: #### L [id number] ####[facility] (DEFAULT)[address] [place] [address] Monocytes (Bld) [#/Vol] 0.40 10*3/uL Normal 0.22-0.87 [facility] Comment on above: Performed By: #### L [id number] ####[facility] (DEFAULT)[address] [place] [address] Monocytes/100 WBC (Bld) 11.2 % Normal [facility] Comment on above: Performed By: #### L [id number] ####[facility] (DEFAULT)[address] [place] [address] Nucleated RBC 0.0 /100 WBC Normal <=0.2 [facility] Comment on above: Performed By: #### L [id number] ####[facility] (DEFAULT)[address] [place] [address] Platelet mean volume (Bld) [Entitic vol] 8.9 fL Normal 8.5-12.2 [facility] Comment on above: Performed By: #### L [id number] ####[facility] (DEFAULT)[address] [place] [address] Platelets (Bld) [#/Vol] 223 10*3/uL Normal 150-393 [facility] Comment on above: Performed By: #### L [id number] ####[facility] (DEFAULT)[address] [place] [address] RBC (Bld) [#/Vol] 3.47 10*6/uL Low 3.91-5.04 [facility] Comment on above: Performed By: #### L [id number] ####[facility] (DEFAULT)[address] [place] [address] RBC Distribution 14.1 % Normal 10.8-14.[address] [facility] Comment on above: Performed By: #### L [id number] ####[facility] (DEFAULT)[address] [place] [address] Segs + Bands Auto 59.8 % Normal [facility] Comment on above: Performed By: #### L [id number] ####[facility] (DEFAULT)[address] [place] [address] Segs + Bands,Absolute Auto 2.13 K/uL Normal 1.64-7.28 [facility] Comment on above: Performed By: #### L [id number] ####[facility] (DEFAULT)[address] [place] [address] WBC (Bld) [#/Vol] 3.56 10*3/uL Low 3.99-11.19 [facility] Comment on above: Performed By: #### L [id number] ####[facility] (DEFAULT)[address] [place] [address] Cardiac echo study Procedure Ordered By: Scott Kothari on 06-14-2024 3D EF 58 % [facility] Work Phone: Avg e' pk ajay 0.06 m/s [facility] Work Phone: Avg E/e' ratio 7.57 [facility] Work Phone: Body surface area Derived from formula 2.16 m2 [facility] Work Phone: E wave decelartion time 234.[address] [facility] Work Phone: e' lateral pk ajya 0.0580 m/s [facility] Work Phone: e' lateral pk ajay 0.06 m/s [facility] Work Phone: e' septal pk ajay 0.0700 m/s [facility] Work Phone: e' septal pk ajay 0.07 m/s [facility] Work Phone: E/A ratio 0.[address] [facility] Work Phone: E/e' lateral [facility] 8.28 [facility] Work Phone: E/e' septal ratio 6.86 [facility] Work Phone: EST RAP 3.00 mmHg [facility] Work Phone: FS 32 % [facility] Work Phone: IVC ostium 1.24 cm [facility] Work Phone: IVS 1.[address] [facility] Work Phone: Long Strain -20.6 % [facility] Work Phone: LV EDV 3D [address] [facility] Work Phone: LV ESV 3D [address] [facility] Work Phone: LV mass 207.[address] [facility] Work Phone: [phone] LV Mass Index 95.9 g/m2 [facility] Work Phone: LV RWT 0.[address] [facility] Work Phone: [phone] LVIDD 5.[address] [facility] Work Phone: LVIDS 3.[address] [facility] Work Phone: [phone] MV pk A ajay 0.72 m/s [facility] Work Phone: MV pk E ajay 0.48 m/s [facility] Work Phone: MV stenosis pressure 1/2 time 68.[address] [facility] Work Phone: MV valve area p 1/2 method 3.[address] [facility] Work Phone: [facility] ECHO LV EDV 3D INDEX 55.09 mL/m2 [facility] Work Phone: [facility] ECHO LV ESV 3D INDEX 23.15 mL/m2 [facility] Work Phone: PW 1.[address] [facility] [address] [facility] Work Phone: RV Area diastolic 9.65 cm2 [facility] [place] Work Phone: RV [facility] systolic 6.12 cm2 [facility]: RV Fractional area change 36.6 % [facility] Work Phone: RV S' 10.70 cm/s [facility] Work Phone: TAPSE 1.[address] [facility] Work Phone: [facility] Work Phone: Cardiac echo study Procedure on 06-14-2024 Left Ventricle: Willie mindi size is normal. Normal wall thickness. Normal global systolic function. Regional wall motion is normal. Ejection fraction is normal (55 - 60%). The magnitude of the left ventricular longitudinal strain is normal. Diastolic function could not be determined. Global longitudinal strain is -20.6%. Right Ventricle: Chamber size is normal. Systolic function is normal. Tricuspid Valve: Trace regurgitation. Pulmonary artery systolic pressure (PASP) is unable to be estimated. Comment: Limited study. Left Ventricle Chamber size is normal. Normal wall thickness. Normal global systolic function. Regional wall motion is normal. The ejection fraction is 58%. Ejection fraction is normal (55 - 60%). The magnitude of the left ventricular longitudinal strain is normal. Diastolic function could not be determined. Global longitudinal strain is -20.6%. Right Ventricle Chamber size is normal. Systolic function is normal. Left Atrium Left atrium not assessed. Right Atrium Right atrium not assessed. IVC/SVC The inferior vena cava is normal in size. The inferior vena cava structure has a diameter <21 mm and decreases >50% during inspiration. Mitral Valve Normal appearing leaflets. Leaflet mobility is normal. No valve stenosis. Tricuspid Valve Normal leaflets. Leaflet mobility is normal. Trace regurgitation. Pulmonary artery systolic pressure (PASP) is unable to be estimated. Aortic Valve Trileaflet valve. Leaflet mobility is normal. Pulmonic Valve Pulmonic valve not assessed. Pericardium No pericardial effusion. Septum Atrial septum not assessed. Pulmonary Artery Pulmonary artery not assessed. Aorta Aorta not assessed. Study Details A limited echocardiography study (including color flow Doppler, limited spectral Doppler, 3D and left ventricular strain) was performed. 3D imaging performed for evaluation of left ventricle function. 3D rendering with interpretation and reporting of echocardiogram with image postprocessing under concurrent physician supervision, REQUIRING image postprocessing on an independent workstation was performed. Strain measurements performed for the evaluation of chemotherapy induced cardiac dysfunction. Imaging system used: [employer]. Indications Indications for study: shortness of breath and chemotherapy (pre/post). Wall Scoring Score Index: 1.00 The left ventricular wall motion is normal. [facility] Radiology Study observation (narrative) [facility] CBC AND ELECTRONIC DIFFon Basophils (Bld) [#/Vol] K/uL 0.00 - 0.15 K/uL [facility] Basophils/100 WBC (Bld) 0.6 % [facility] Differential cell count method Nom (Bld) Electronic Differential [facility] Eosinophils (Bld) [#/Vol] 0.11 10*3/uL 0.00 - 0.42 K/uL [facility] Eosinophils/100 WBC (Bld) 3.5 % [facility] Erythrocyte distribution width (RBC) [Ratio] 15.2 % High 10.8 - 14.9 % [facility] Hematocrit (Bld) [Volume fraction] 32.9 % Low 34.9 - 44.3 % [facility] Hemoglobin (Bld) [Mass/Vol] 10.7 g/dL Low 11.4 - 15.2 g/dL [facility] Immature granulocytes (Bld) [#/Vol] K/uL NINF - 0.08 K/uL [facility] Immature granulocytes/100 WBC (Bld) 0.3 % [facility] Interpretation and review of laboratory results Abnormal [facility] Lymphocytes (Bld) [#/Vol] 0.86 10*3/uL Low 1.16 - 3.51 K/uL [facility] Lymphocytes/100 WBC (Bld) 27.7 % [facility] MCH (RBC) [Entitic mass] 30.9 pg 25.9 - 33.[address] [facility] MCHC (RBC) [Mass/Vol] 32.5 g/dL 31.4 - 35.9 g/dL [facility] MCV (RBC) [Entitic vol] 95.1 fL 79.6 - 97.[address] [facility] Monocytes (Bld) [#/Vol] 0.42 10*3/uL 0.22 - 0.87 K/uL [facility] Monocytes/100 WBC (Bld) 13.5 % [facility] Neutrophils (Bld) [#/Vol] 1.69 10*3/uL 1.64 - 7.28 K/uL [facility] Nucleated RBC/100 WBC (Bld) [Ratio] 0.0 % NINF [facility] Platelet mean volume (Bld) [Entitic vol] 9.2 fL 8.5 - 12.[address] [facility] Platelets (Bld) [#/Vol] 216 10*3/uL 150 - 393 K/uL [facility] RBC (Bld) [#/Vol] 3.46 10*6/uL Low [facility] Segmented neutrophils/100 WBC (Bld) 54.4 % [facility] WBC (Bld) [#/Vol] 3.11 10*3/uL Low 3.99 - 11.19 K/uL [facility] Abs Baso Auto < Normal 0.00-0.15 [facility] Comment on above: Performed By: #### L [id number] ####[facility] (DEFAULT)[address] [place] [address] Basophils/100 WBC (Bld) 0.6 % Normal [facility] Comment on above: Performed By: #### L [id number] ####[facility] (DEFAULT)[address] [place] [address] DIFF STATUS Electronic Differential Normal [facility] Comment on above: Performed By: #### L [id number] ####[facility] (DEFAULT)[address] [place] [address] Eosinophils (Bld) [#/Vol] 0.11 10*3/uL Normal 0.00-0.42 [facility] Comment on above: Performed By: #### L [id number] ####[facility] (DEFAULT)[address] [place] [address] Eosinophils/100 WBC (Bld) 3.5 % Normal [facility] Comment on above: Performed By: #### L [id number] ####[facility] (DEFAULT)[address] [place] [address] Hematocrit (Bld) [Volume fraction] 32.9 % Low 34.9-44.3 [facility] Comment on above: Performed By: #### L [id number] ####[facility] (DEFAULT)[address] [place] [address] Hemoglobin (Bld) [Mass/Vol] 10.7 g/dL Low 11.4-15.2 [facility] Comment on above: Performed By: #### L [id number] ####[facility] (DEFAULT)[address] [place] [address] Immature Grans % 0.3 % Normal [facility] Comment on above: Performed By: #### L [id number] ####[facility] (DEFAULT)[address] [place] [address], [place] [address] Immature Grans Absolute < Normal <=0.08 [facility] Comment on above: Performed By: #### L [id number] ####[facility] (DEFAULT)[address] [place] [address] Lymphocytes (Bld) [#/Vol] 0.86 10*3/uL Low 1.16-3.51 [facility] Comment on above: Performed By: #### L [id number] ####[facility] (DEFAULT)[address] [place] [address], [place] [address] Lymphocytes/100 WBC (Bld) 27.7 % Normal [facility] Comment on above: Performed By: #### L [id number] ####[facility] (DEFAULT)[address] [place] [address] MCV (RBC) [Entitic vol] 95.1 fL Normal 79.6-97.7 [facility] Comment on above: Performed By: #### L [id number] ####[facility] (DEFAULT)[address] [place] [address] Mean Cell Hgb 30.9 pg Normal 25.9-33.9 [facility] Comment on above: Performed By: #### L [id number] ####[facility] (DEFAULT)[address] [place] [address] Mean Cell Hgb Conc 32.5 g/dL Normal 31.4-35.9 [facility] Comment on above: Performed By: #### L [id number] ####[facility] (DEFAULT)[address] [place] [address] Monocytes (Bld) [#/Vol] 0.42 10*3/uL Normal 0.22-0.87 [facility] Comment on above: Performed By: #### L [id number] ####[facility] (DEFAULT)[address] [place] [address] Monocytes/100 WBC (Bld) 13.5 % Normal [facility] Comment on above: Performed By: #### L [id number] ####[facility] (DEFAULT)[address] [place] [address] Nucleated RBC 0.0 /100 WBC Normal <=0.2 [facility] Comment on above: Performed By: #### L [id number] ####[facility] (DEFAULT)[address] [place] [address] Platelet mean volume (Bld) [Entitic vol] 9.2 fL Normal 8.5-12.2 [facility] Comment on above: Performed By: #### L [id number] ####[facility] (DEFAULT)[address] [place] [address] Platelets (Bld) [#/Vol] 216 10*3/uL Normal 150-393 [facility] Comment on above: Performed By: #### L [id number] ####[facility] (DEFAULT)[address] [place] [address] RBC (Bld) [#/Vol] 3.46 10*6/uL Low 3.91-5.04 [facility] Comment on above: Performed By: #### L [id number] ####[facility] (DEFAULT)[address] [place] [address] RBC Distribution 15.2 % High 10.8-14.[address] [facility] Comment on above: Performed By: #### L [id number] ####[facility] (DEFAULT)[address] [place] [address] Segs + Bands Auto 54.4 % Normal [facility] Comment on above: Performed By: #### L [id number] ####[facility] (DEFAULT)[address] [place] [address] Segs + Bands,Absolute Auto 1.69 K/uL Normal 1.64-7.28 [facility] Comment on above: Performed By: #### L [id number] ####[facility] (DEFAULT)[address] [place] [address] WBC (Bld) [#/Vol] 3.11 10*3/uL Low 3.99-11.19 [facility] Comment on above: Performed By: #### L [id number] ####[facility] (DEFAULT)[address] [place] [address] CMPN WITHOUT GLUCOSEon 06-04 Albumin [Mass/Vol] 4.0 g/dL 3.5 - 5.0 g/dL [facility] ALP [Catalytic activity/Vol] 57 U/L 32 - 126 U/L [facility] ALT [Catalytic activity/Vol] 22 U/L 9 - 48 U/L [facility] Anion gap [Moles/Vol] 10 mmol/L 7 - 17 mmol/L [facility] AST [Catalytic activity/Vol] 19 U/L 10 - 39 U/L [facility] Bilirubin [Mass/Vol] 0.5 mg/dL NINF - 1.5 mg/dL [facility] Calcium [Mass/Vol] 9.0 mg/dL 8.6 - 10. 5 mg/dL [facility] Chloride [Moles/Vol] 103 mmol/L 98 - 10 8 mmol/L [facility] CO2 [Moles/Vol] 27 mmol/L 21 - 31 mmol/L [facility] Creatinine [Mass/Vol] 0.47 mg/dL Low 0.50 - 1.20 mg/dL [facility] eGFR, CKD-EPI, Female - PINF [facility] Comment on above: Reported eGFR is bas ed on the CKD-EPI 2020 equation using creatinine, age, and sex. Interpretation and review of laboratory results Abnormal [facility] Potassium [Moles/Vol] 3.9 mmol/L 3.5 - 5.0 mmol/L [facility] Protein [Mass/Vol] 6.3 g/dL Low 6.4 - 8.3 g/dL [facility] Sodium [Moles/Vol] 136 mmol/L 135 - 145 mmol/L [facility] Urea nitrogen [Mass/Vol] 16 mg/dL 7 - 25 mg/dL [facility] Urea nitrogen/Creatinine [Mass ratio] 34 mg/mg [facility] Albumin [Mass/Vol] 4.0 g/dL Normal 3.5-5.0 [facility] Comment on above: Performed By: #### C MPNG ####[facility] (DEFAULT)[address] [place] [address] ALP [Catalytic activity/Vol] 57 U/L Normal 32-126 [facility] Comment on above: Performed By: #### C MPNG ####[facility] (DEFAULT)[address] [place] [address] ALT [Catalytic activity/Vol] 22 U/L Normal 9-48 [facility] Comment on above: Performed By: #### C MPNG ####[facility] (DEFAULT)[address] [place] [address] Anion gap [Moles/Vol] 10 mmol/L Normal 7-17 [facility] Comment on above: Performed By: #### C MPNG ####[facility] (DEFAULT)[address] [place] [address] AST [Catalytic activity/Vol] 19 U/L Normal 10-39 [facility] Comment on above: Performed By: #### C MPNG ####[facility] (DEFAULT)[address] [place] [address] Bilirubin [Mass/Vol] 0.5 mg/dL Normal <1.5 [facility] Comment on above: Performed By: #### C MPNG ####[facility] (DEFAULT)[address] [place] [address] Calcium [Mass/Vol] 9.0 mg/dL Normal 8.6-10.5 [facility] Comment on above: Performed By: #### C MPNG ####[facility] (DEFAULT)[address] [place] [address] Chloride [Moles/Vol] 103 mmol/L Normal 98-108 [facility] Comment on above: Performed By: #### C MPNG ####[facility] (DEFAULT)[address] [place] [address] CO2 [Moles/Vol] 27 mmol/L Normal 21-31 [facility] Comment on above: Performed By: #### C MPNG ####[facility] (DEFAULT)[address] [place] [address] Creatinine [Mass/Vol] 0.47 mg/dL Low 0.50-1.20 [facility] Comment on above: Performed By: #### C MPNG ####[facility] (DEFAULT)[address] [place] [address] eGFR, CKD-EPI, Female > Normal >=60 [facility] Comment on above: Result Comment: Repo rted eGFR is based on the CKD-EPI 2020 equation using creatinine, age, and sex. Performed By: #### C MPNG ####[facility] (DEFAULT)[address] [place] [address] Potassium [Moles/Vol] 3.9 mmol/L Normal 3.5-5.0 [facility] Comment on above: Performed By: #### C MPNG ####[facility] (DEFAULT)[address] [place] [address] Protein [Mass/Vol] 6.3 g/dL Low 6.4-8.3 [facility] Comment on above: Performed By: #### C MPNG ####[facility] (DEFAULT)[address] [place] [address] Sodium [Moles/Vol] 136 mmol/L Normal 135-145 [facility] Comment on above: Performed By: #### C MPNG ####[facility] (DEFAULT)[address] [place] [address] Urea nitrogen [Mass/Vol] 16 mg/dL Normal 7-25 [facility] Comment on above: Performed By: #### C MPNG ####[facility] (DEFAULT)[address] [place] [address], [place] [address] Urea nitrogen/Creatinine [Mass ratio] 34 mg/mg Normal [facility] Comment on above: Performed By: #### C MPNG ####[facility] (DEFAULT)[address] [place] [address] CBC AND ELECTRONIC DIFFon Basophils (Bld) [#/Vol] K/uL 0.00 - 0.15 K/uL [facility] Basophils/100 WBC (Bld) 0.3 % [facility] Differential cell count method Nom (Bld) Electronic Differential [facility] Eosinophils (Bld) [#/Vol] 0.12 10*3/uL 0.00 - 0.42 K/uL [facility] Eosinophils/100 WBC (Bld) 4.1 % [facility] Erythrocyte distribution width (RBC) [Ratio] 15.3 % High 10.8 - 14.9 % [facility] Hematocrit (Bld) [Volume fraction] 32.8 % Low 34.9 - 44.3 % [facility] Hemoglobin (Bld) [Mass/Vol] 11.0 g/dL Low 11.4 - 15.2 g/dL [facility] Immature granulocytes (Bld) [#/Vol] K/uL NINF - 0.08 K/uL [facility] Immature granulocytes/100 WBC (Bld) 0.3 % [facility] Interpretation and review of laboratory results Abnormal [facility] Lymphocytes (Bld) [#/Vol] 0.90 10*3/uL Low 1.16 - 3.51 K/uL [facility] Lymphocytes/100 WBC (Bld) 30.5 % [facility] MCH (RBC) [Entitic mass] 31.3 pg 25.9 - 33.[address] [facility] MCHC (RBC) [Mass/Vol] 33.5 g/dL 31.4 - 35.9 g/dL [facility] MCV (RBC) [Entitic vol] 93.4 fL 79.6 - 97.[address] [facility] Monocytes (Bld) [#/Vol] 0.32 10*3/uL 0.22 - 0.87 K/uL [facility] Monocytes/100 WBC (Bld) 10.8 % [facility] Neutrophils (Bld) [#/Vol] 1.59 10*3/uL Low 1.64 - 7.28 K/uL [facility] Nucleated RBC/100 WBC (Bld) [Ratio] 0.0 % [facility] Platelet mean volume (Bld) [Entitic vol] 9.0 fL 8.5 - 12.[address] [facility] Platelets (Bld) [#/Vol] 207 10*3/uL 150 - 393 K/uL [facility] RBC (Bld) [#/Vol] 3.51 10*6/uL Low [facility] Segmented neutrophils/100 WBC (Bld) 54.0 % [facility] WBC (Bld) [#/Vol] 2.95 10*3/uL Low 3.99 - 11.19 K/uL [facility] Abs Baso Auto < Normal 0.00-0.15 [facility] Comment on above: Performed By: #### L [id number] ####[facility] (DEFAULT)[address] [place] [address] Basophils/100 WBC (Bld) 0.3 % Normal [facility] Comment on above: Performed By: #### L [id number] ####[facility] (DEFAULT)[address] [place] [address] DIFF STATUS Electronic Differential Normal [facility] Comment on above: Performed By: #### L [id number] ####[facility] (DEFAULT)[address] [place] [address] Eosinophils (Bld) [#/Vol] 0.12 10*3/uL Normal 0.00-0.42 [facility] Comment on above: Performed By: #### L [id number] ####[facility] (DEFAULT)[address] [place] [address] Eosinophils/100 WBC (Bld) 4.1 % Normal [facility] Comment on above: Performed By: #### L [id number] ####[facility] (DEFAULT)[address] [place] [address] Hematocrit (Bld) [Volume fraction] 32.8 % Low 34.9-44.3 [facility] Comment on above: Performed By: #### L [id number] ####[facility] (DEFAULT)[address] [place] [address] Hemoglobin (Bld) [Mass/Vol] 11.0 g/dL Low 11.4-15.2 [facility] Comment on above: Performed By: #### L [id number] ####[facility] (DEFAULT)[address] [place] [address] Immature Grans % 0.3 % Normal [facility] Comment on above: Performed By: #### L [id number] ####[facility] (DEFAULT)[address] [place] [address] Immature Grans Absolute < Normal <=0.08 [facility] Comment on above: Performed By: #### L [id number] ####[facility] (DEFAULT)[address] [place] [address] Lymphocytes (Bld) [#/Vol] 0.90 10*3/uL Low 1.16-3.51 [facility] Comment on above: Performed By: #### L [id number] ####[facility] (DEFAULT)[address] [place] [address] Lymphocytes/100 WBC (Bld) 30.5 % Normal [facility] Comment on above: Performed By: #### L [id number] ####[facility] (DEFAULT)[address] [place] [address] MCV (RBC) [Entitic vol] 93.4 fL Normal 79.6-97.7 [facility] Comment on above: Performed By: #### L [id number] ####[facility] (DEFAULT)[address] [place] [address] Mean Cell Hgb 31.3 pg Normal 25.9-33.9 [facility] Comment on above: Performed By: #### L [id number] ####[facility] (DEFAULT)[address] [place] [address] Mean Cell Hgb Conc 33.5 g/dL Normal 31.4-35.9 [facility] Comment on above: Performed By: #### L [id number] ####[facility] (DEFAULT)[address] [place] [address] Monocytes (Bld) [#/Vol] 0.32 10*3/uL Normal 0.22-0.87 [facility] Comment on above: Performed By: #### L [id number] ####[facility] (DEFAULT)[address] [place] [address] Monocytes/100 WBC (Bld) 10.8 % Normal [facility] Comment on above: Performed By: #### L [id number] ####[facility] (DEFAULT)[address] [place] [address] Nucleated RBC 0.0 /100 WBC Normal <=0.2 [facility] Comment on above: Performed By: #### L [id number] ####[facility] (DEFAULT)[address] [place] [address] Platelet mean volume (Bld) [Entitic vol] 9.0 fL Normal 8.5-12.2 [facility] Comment on above: Performed By: #### L [id number] ####[facility] (DEFAULT)[address] [place] [address] Platelets (Bld) [#/Vol] 207 10*3/uL Normal 150-393 [facility] Comment on above: Performed By: #### L [id number] ####[facility] (DEFAULT)[address] [place] [address] RBC (Bld) [#/Vol] 3.51 10*6/uL Low 3.91-5.04 [facility] Comment on above: Performed By: #### L [id number] ####[facility] (DEFAULT)[address] [place] [address] RBC Distribution 15.3 % High 10.8-14.[address] [facility] Comment on above: Performed By: #### L [id number] ####[facility] (DEFAULT)[address] [place] [address] Segs + Bands Auto 54.0 % Normal [facility] Comment on above: Performed By: #### L [id number] ####[facility] (DEFAULT)[address] [place] [address] Segs + Bands,Absolute Auto 1.59 K/uL Low 1.64-7.28 [facility] Comment on above: Performed By: #### L [id number] ####[facility] (DEFAULT)[address] [place] [address] WBC (Bld) [#/Vol] 2.95 10*3/uL Low 3.99-11.19 [facility] Comment on above: Performed By: #### L [id number] ####[facility] (DEFAULT)[address] [place] [address] CBC AND ELECTRONIC DIFFon Basophils (Bld) [#/Vol] K/uL 0.00 - 0.15 K/uL [facility] Basophils/100 WBC (Bld) 0.6 % [facility] Differential cell count method Nom (Bld) Electronic Differential [facility] Eosinophils (Bld) [#/Vol] 0.10 10*3/uL 0.00 - 0.42 K/uL [facility] Eosinophils/100 WBC (Bld) 2.9 % [facility] Erythrocyte distribution width (RBC) [Ratio] 15.2 % High 10.8 - 14.9 % [facility] Hematocrit (Bld) [Volume fraction] 31.9 % Low 34.9 - 44.3 % [facility] Hemoglobin (Bld) [Mass/Vol] 10.8 g/dL Low 11.4 - 15.2 g/dL [facility] Immature granulocytes (Bld) [#/Vol] K/uL NINF - 0.08 K/uL [facility] Immature granulocytes/100 WBC (Bld) 0.3 % [facility] Interpretation and review of laboratory results Abnormal [facility] Lymphocytes (Bld) [#/Vol] 0.80 10*3/uL Low 1.16 - 3.51 K/uL [facility] Lymphocytes/100 WBC (Bld) 23.1 % [facility] MCH (RBC) [Entitic mass] 31.1 pg 25.9 - 33.[address] [facility] MCHC (RBC) [Mass/Vol] 33.9 g/dL 31.4 - 35.9 g/dL [facility] MCV (RBC) [Entitic vol] 91.9 fL 79.6 - 97.[address] [facility] Monocytes (Bld) [#/Vol] 0.34 10*3/uL 0.22 - 0.87 K/uL [facility] Monocytes/100 WBC (Bld) 9.8 % [facility] Neutrophils (Bld) [#/Vol] 2.19 10*3/uL 1.64 - 7.28 K/uL [facility] Nucleated RBC/100 WBC (Bld) [Ratio] 0.0 % NINF [facility] Platelet mean volume (Bld) [Entitic vol] 8.7 fL 8.5 - 12.[address] [facility] Platelets (Bld) [#/Vol] 173 10*3/uL 150 - 393 K/uL [facility] RBC (Bld) [#/Vol] 3.47 10*6/uL Low [facility] Segmented neutrophils/100 WBC (Bld) 63.3 % [facility] WBC (Bld) [#/Vol] 3.46 10*3/uL Low 3.99 - 11.19 K/uL [facility] Abs Baso Auto < Normal 0.00-0.15 [facility] Comment on above: Performed By: #### L [id number] ####[facility] (DEFAULT)[address] [place] [address] Basophils/100 WBC (Bld) 0.6 % Normal [facility] Comment on above: Performed By: #### L [id number] ####[facility] (DEFAULT)[address] [place] [address] DIFF STATUS Electronic Differential Normal [facility] Comment on above: Performed By: #### L [id number] ####[facility] (DEFAULT)[address] [place] [address] Eosinophils (Bld) [#/Vol] 0.10 10*3/uL Normal 0.00-0.42 [facility] Comment on above: Performed By: #### L [id number] ####[facility] (DEFAULT)[address] [place] [address], [place] [address] Eosinophils/100 WBC (Bld) 2.9 % Normal [facility] Comment on above: Performed By: #### L [id number] ####[facility] (DEFAULT)[address] [place] [address], [place] [address] Hematocrit (Bld) [Volume fraction] 31.9 % Low 34.9-44.3 [facility] Comment on above: Performed By: #### L [id number] ####[facility] (DEFAULT)[address] [place] [address], [place] [address] Hemoglobin (Bld) [Mass/Vol] 10.8 g/dL Low 11.4-15.2 [facility] Comment on above: Performed By: #### L [id number] ####[facility] (DEFAULT)[address] [place] [address], [place] [address] Immature Grans % 0.3 % Normal [facility] Comment on above: Performed By: #### L [id number] ####[facility] (DEFAULT)[address] [place] [address], [place] [address] Immature Grans Absolute < Normal <=0.08 [facility] Comment on above: Performed By: #### L [id number] ####[facility] (DEFAULT)[address] [place] [address] Lymphocytes (Bld) [#/Vol] 0.80 10*3/uL Low 1.16-3.51 [facility] Comment on above: Performed By: #### L [id number] ####[facility] (DEFAULT)[address] [place] [address] Lymphocytes/100 WBC (Bld) 23.1 % Normal [facility] Comment on above: Performed By: #### L [id number] ####[facility] (DEFAULT)[address] [place] [address] MCV (RBC) [Entitic vol] 91.9 fL Normal 79.6-97.7 [facility] Comment on above: Performed By: #### L [id number] ####[facility] (DEFAULT)[address] [place] [address] Mean Cell Hgb 31.1 pg Normal 25.9-33.9 [facility] Comment on above: Performed By: #### L [id number] ####[facility] (DEFAULT)[address] [place] [address] Mean Cell Hgb Conc 33.9 g/dL Normal 31.4-35.9 [facility] Comment on above: Performed By: #### L [id number] ####[facility] (DEFAULT)[address] [place] [address] Monocytes (Bld) [#/Vol] 0.34 10*3/uL Normal 0.22-0.87 [facility] Comment on above: Performed By: #### L [id number] ####[facility] (DEFAULT)[address] [place] [address], [place] [address] Monocytes/100 WBC (Bld) 9.8 % Normal [facility] Comment on above: Performed By: #### L [id number] ####[facility] (DEFAULT)[address] [place] [address] Nucleated RBC 0.0 /100 WBC Normal <=0.2 [facility] Comment on above: Performed By: #### L [id number] ####[facility] (DEFAULT)[address] [place] [address] Platelet mean volume (Bld) [Entitic vol] 8.7 fL Normal 8.5-12.2 [facility] Comment on above: Performed By: #### L [id number] ####[facility] (DEFAULT)[address] [place] [address] Platelets (Bld) [#/Vol] 173 10*3/uL Normal 150-393 [facility] Comment on above: Performed By: #### L [id number] ####[facility] (DEFAULT)[address] [place] [address] RBC (Bld) [#/Vol] 3.47 10*6/uL Low 3.91-5.04 [facility] Comment on above: Performed By: #### L [id number] ####[facility] (DEFAULT)[address] [place] [address] RBC Distribution 15.2 % High 10.8-14.[address] [facility] Comment on above: Performed By: #### L [id number] ####[facility] (DEFAULT)[address] [place] [address] Segs + Bands Auto 63.3 % Normal [facility] Comment on above: Performed By: #### L [id number] ####[facility] (DEFAULT)[address] [place] [address] Segs + Bands,Absolute Auto 2.19 K/uL Normal 1.64-7.28 [facility] Comment on above: Performed By: #### L [id number] ####[facility] (DEFAULT)[address] [place] [address] WBC (Bld) [#/Vol] 3.46 10*3/uL Low 3.99-11.19 [facility] Comment on above: Performed By: #### L [id number] ####[facility] (DEFAULT)[address] [place] [address] CBC AND ELECTRONIC DIFFon Basophils (Bld) [#/Vol] 0.04 10*3/uL 0.00 - 0.15 K/uL [facility] Basophils/100 WBC (Bld) 1.0 % [facility] Differential cell count method Nom (Bld) Electronic Differential [facility] Eosinophils (Bld) [#/Vol] 0.09 10*3/uL 0.00 - 0.42 K/uL [facility] Eosinophils/100 WBC (Bld) 2.3 % [facility] Erythrocyte distribution width (RBC) [Ratio] 15.6 % High 10.8 - 14.9 % [facility] Hematocrit (Bld) [Volume fraction] 33.7 % Low 34.9 - 44.3 % [facility] Hemoglobin (Bld) [Mass/Vol] 11.5 g/dL 11.4 - 15.2 g/dL [facility] Immature granulocytes (Bld) [#/Vol] K/uL NINF - 0.08 K/uL [facility] Immature granulocytes/100 WBC (Bld) 0.3 % [facility] Interpretation and review of laboratory results Abnormal [facility] Lymphocytes (Bld) [#/Vol] 0.82 10*3/uL Low 1.16 - 3.51 K/uL [facility] Lymphocytes/100 WBC (Bld) 20.6 % [facility] MCH (RBC) [Entitic mass] 31.2 pg 25.9 - 33.[address] [facility] MCHC (RBC) [Mass/Vol] 34.1 g/dL 31.4 - 35.9 g/dL [facility] MCV (RBC) [Entitic vol] 91.3 fL 79.6 - 97.[address] [facility] Monocytes (Bld) [#/Vol] 0.39 10*3/uL 0.22 - 0.87 K/uL [facility] Monocytes/100 WBC (Bld) 9.8 % [facility] Neutrophils (Bld) [#/Vol] 2.64 10*3/uL 1.64 - 7.28 K/uL [facility] Nucleated RBC/100 WBC (Bld) [Ratio] 0.0 % NINF [facility] Platelet mean volume (Bld) [Entitic vol] 9.3 fL 8.5 - 12.[address] [facility] Platelets (Bld) [#/Vol] 197 10*3/uL 150 - 393 K/uL [facility] RBC (Bld) [#/Vol] 3.69 10*6/uL Low [facility] Segmented neutrophils/100 WBC (Bld) 66.0 % [facility] WBC (Bld) [#/Vol] 3.99 10*3/uL 3.99 - 11.19 K/uL [facility] Basophils (Bld) [#/Vol] 0.04 10*3/uL Normal 0.00-0.15 [facility] Comment on above: Performed By: #### L [id number] ####[facility] (DEFAULT)[address] [place] [address] Basophils/100 WBC (Bld) 1.0 % Normal [facility] Comment on above: Performed By: #### L [id number] ####[facility] (DEFAULT)[address] [place] [address] DIFF STATUS Electronic Differential Normal [facility] Comment on above: Performed By: #### L [id number] ####[facility] (DEFAULT)[address] [place] [address] Eosinophils (Bld) [#/Vol] 0.09 10*3/uL Normal 0.00-0.42 [facility] Comment on above: Performed By: #### L [id number] ####[facility] (DEFAULT)[address] [place] [address] Eosinophils/100 WBC (Bld) 2.3 % Normal [facility] Comment on above: Performed By: #### L [id number] ####[facility] (DEFAULT)[address] [place] [address] Hematocrit (Bld) [Volume fraction] 33.7 % Low 34.9-44.3 [facility] Comment on above: Performed By: #### L [id number] ####[facility] (DEFAULT)[address] [place] [address] Hemoglobin (Bld) [Mass/Vol] 11.5 g/dL Normal 11.4-15.2 [facility] Comment on above: Performed By: #### L [id number] ####[facility] (DEFAULT)[address] [place] [address] Immature Grans % 0.3 % Normal [facility] Comment on above: Performed By: #### L [id number] ####[facility] (DEFAULT)[address] [place] [address] Immature Grans Absolute < Normal <=0.08 [facility] Comment on above: Performed By: #### L [id number] ####[facility] (DEFAULT)[address] [place] [address] Lymphocytes (Bld) [#/Vol] 0.82 10*3/uL Low 1.16-3.51 [facility] Comment on above: Performed By: #### L [id number] ####[facility] (DEFAULT)[address] [place] [address] Lymphocytes/100 WBC (Bld) 20.6 % Normal [facility] Comment on above: Performed By: #### L [id number] ####[facility] (DEFAULT)[address] [place] [address] MCV (RBC) [Entitic vol] 91.3 fL Normal 79.6-97.7 [facility] Comment on above: Performed By: #### L [id number] ####[facility] (DEFAULT)[address] [place] [address] Mean Cell Hgb 31.2 pg Normal 25.9-33.9 [facility] Comment on above: Performed By: #### L [id number] ####[facility] (DEFAULT)[address] [place] [address] Mean Cell Hgb Conc 34.1 g/dL Normal 31.4-35.9 [facility] Comment on above: Performed By: #### L [id number] ####[facility] (DEFAULT)[address] [place] [address] Monocytes (Bld) [#/Vol] 0.39 10*3/uL Normal 0.22-0.87 [facility] Comment on above: Performed By: #### L [id number] ####[facility] (DEFAULT)[address] [place] [address] Monocytes/100 WBC (Bld) 9.8 % Normal [facility] Comment on above: Performed By: #### L [id number] ####[facility] (DEFAULT)[address] [place] [address] Nucleated RBC 0.0 /100 WBC Normal <=0.2 [facility] Comment on above: Performed By: #### L [id number] ####[facility] (DEFAULT)[address] [place] [address] Platelet mean volume (Bld) [Entitic vol] 9.3 fL Normal 8.5-12.2 [facility] Comment on above: Performed By: #### L [id number] ####[facility] (DEFAULT)[address] [place] [address] Platelets (Bld) [#/Vol] 197 10*3/uL Normal 150-393 [facility] Comment on above: Performed By: #### L [id number] ####[facility] (DEFAULT)[address] [place] [address] RBC (Bld) [#/Vol] 3.69 10*6/uL Low 3.91-5.04 [facility] Comment on above: Performed By: #### L [id number] ####[facility] (DEFAULT)[address] [place] [address] RBC Distribution 15.6 % High 10.8-14.[address] [facility] Comment on above: Performed By: #### L [id number] ####[facility] (DEFAULT)[address] [place] [address] Segs + Bands Auto 66.0 % Normal [facility] Comment on above: Performed By: #### L [id number] ####[facility] (DEFAULT)[address] [place] [address] Segs + Bands,Absolute Auto 2.64 K/uL Normal 1.64-7.28 [facility] Comment on above: Performed By: #### L [id number] ####[facility] (DEFAULT)[address] [place] [address] WBC (Bld) [#/Vol] 3.99 10*3/uL Normal 3.99-11.19 [facility] Comment on above: Performed By: #### L [id number] ####[facility] (DEFAULT)[address] [place] [address] CMPN WITHOUT GLUCOSEon 05-10 Albumin [Mass/Vol] 4.2 g/dL 3.5 - 5.0 g/dL [facility] ALP [Catalytic activity/Vol] 62 U/L 32 - 126 U/L [facility] ALT [Catalytic activity/Vol] 34 U/L 9 - 48 U/L [facility] Anion gap [Moles/Vol] 10 mmol/L 7 - 17 mmol/L [facility] AST [Catalytic activity/Vol] 21 U/L 10 - 39 U/L [facility] Bilirubin [Mass/Vol] 0.5 mg/dL NINF - 1.5 mg/dL [facility] Calcium [Mass/Vol] 9.2 mg/dL 8.6 - 10. 5 mg/dL [facility] Chloride [Moles/Vol] 103 mmol/L 98 - 10 8 mmol/L [facility] CO2 [Moles/Vol] 28 mmol/L 21 - 31 mmol/L [facility] Creatinine [Mass/Vol] 0.52 mg/dL 0.50 - 1.20 mg/dL [facility] eGFR, CKD-EPI, Female - PINF [facility] Comment on above: Reported eGFR is bas ed on the CKD-EPI 2020 equation using creatinine, age, and sex. Potassium [Moles/Vol] 3.9 mmol/L 3.5 - 5.0 mmol/L [facility] Protein [Mass/Vol] 6.5 g/dL 6.4 - 8.3 g/dL [facility] Sodium [Moles/Vol] 137 mmol/L 135 - 145 mmol/L [facility] Urea nitrogen [Mass/Vol] 20 mg/dL 7 - 25 mg/dL [facility] Urea nitrogen/Creatinine [Mass ratio] 38 mg/mg [facility] Albumin [Mass/Vol] 4.2 g/dL Normal 3.5-5.0 [facility] Comment on above: Performed By: #### C MPNG ####[facility] (DEFAULT)[address] [place] [address] ALP [Catalytic activity/Vol] 62 U/L Normal 32-126 [facility] Comment on above: Performed By: #### C MPNG ####[facility] (DEFAULT)[address] [place] [address] ALT [Catalytic activity/Vol] 34 U/L Normal 9-48 [facility] Comment on above: Performed By: #### C MPNG ####[facility] (DEFAULT)[address] [place] [address] Anion gap [Moles/Vol] 10 mmol/L Normal 7-17 [facility] Comment on above: Performed By: #### C MPNG ####[facility] (DEFAULT)[address] [place] [address] AST [Catalytic activity/Vol] 21 U/L Normal 10-39 [facility] Comment on above: Performed By: #### C MPNG ####[facility] (DEFAULT)[address] [place] [address] Bilirubin [Mass/Vol] 0.5 mg/dL Normal <1.5 [facility] Comment on above: Performed By: #### C MPNG ####[facility] (DEFAULT)[address] [place] [address] Calcium [Mass/Vol] 9.2 mg/dL Normal 8.6-10.5 [facility] Comment on above: Performed By: #### C MPNG ####[facility] (DEFAULT)[address] [place] [address] Chloride [Moles/Vol] 103 mmol/L Normal 98-108 [facility] Comment on above: Performed By: #### C MPNG ####[facility] (DEFAULT)[address] [place] [address] CO2 [Moles/Vol] 28 mmol/L Normal 21-31 [facility] Comment on above: Performed By: #### C MPNG ####[facility] (DEFAULT)[address] [place] [address] Creatinine [Mass/Vol] 0.52 mg/dL Normal 0.50-1.20 [facility] Comment on above: Performed By: #### C MPNG ####[facility] (DEFAULT)[address] [place] [address] eGFR, CKD-EPI, Female > Normal >=60 [facility] Comment on above: Result Comment: Repo rted eGFR is based on the CKD-EPI 2020 equation using creatinine, age, and sex. Performed By: #### C MPNG ####[facility] (DEFAULT)[address] [place] [address] Potassium [Moles/Vol] 3.9 mmol/L Normal 3.5-5.0 [facility] Comment on above: Performed By: #### C MPNG ####[facility] (DEFAULT)[address] [place] [address] Protein [Mass/Vol] 6.5 g/dL Normal 6.4-8.3 [facility] Comment on above: Performed By: #### C MPNG ####[facility] (DEFAULT)[address] [place] [address] Sodium [Moles/Vol] 137 mmol/L Normal 135-145 [facility] Comment on above: Performed By: #### C MPNG ####[facility] (DEFAULT)[address] [place] [address] Urea nitrogen [Mass/Vol] 20 mg/dL Normal 7-25 [facility] Comment on above: Performed By: #### C MPNG ####[facility] (DEFAULT)[address] [place] [address] Urea nitrogen/Creatinine [Mass ratio] 38 mg/mg Normal [facility] Comment on above: Performed By: #### C MPNG ####[facility] (DEFAULT)[address] [place] [address], [place] [address] CBC AND ELECTRONIC DIFFon Basophils (Bld) [#/Vol] K/uL 0.00 - 0.15 K/uL [facility] Basophils/100 WBC (Bld) 0.9 % [facility] Differential cell count method Nom (Bld) Electronic Differential [facility] Eosinophils (Bld) [#/Vol] 0.04 10*3/uL 0.00 - 0.42 K/uL [facility] Eosinophils/100 WBC (Bld) 1.1 % [facility] Erythrocyte distribution width (RBC) [Ratio] 16.2 % High 10.8 - 14.9 % [facility] Hematocrit (Bld) [Volume fraction] 32.1 % Low 34.9 - 44.3 % [facility] Hemoglobin (Bld) [Mass/Vol] 10.8 g/dL Low 11.4 - 15.2 g/dL [facility] Immature granulocytes (Bld) [#/Vol] K/uL NINF - 0.08 K/uL [facility] Immature granulocytes/100 WBC (Bld) 0.3 % [facility] Interpretation and review of laboratory results Abnormal [facility] Lymphocytes (Bld) [#/Vol] 0.76 10*3/uL Low 1.16 - 3.51 K/uL [facility] Lymphocytes/100 WBC (Bld) 21.8 % [facility] MCH (RBC) [Entitic mass] 30.7 pg 25.9 - 33.[address] [facility] MCHC (RBC) [Mass/Vol] 33.6 g/dL 31.4 - 35.9 g/dL [facility] MCV (RBC) [Entitic vol] 91.2 fL 79.6 - 97.[address] [facility] Monocytes (Bld) [#/Vol] 0.35 10*3/uL 0.22 - 0.87 K/uL [facility] Monocytes/100 WBC (Bld) 10.1 % [facility] Neutrophils (Bld) [#/Vol] 2.29 10*3/uL 1.64 - 7.28 K/uL [facility] Nucleated RBC/100 WBC (Bld) [Ratio] 0.0 % [facility] Platelet mean volume (Bld) [Entitic vol] 8.9 fL 8.5 - 12.[address] [facility] Platelets (Bld) [#/Vol] 265 10*3/uL 150 - 393 K/uL [facility] RBC (Bld) [#/Vol] 3.52 10*6/uL Low [facility] Segmented neutrophils/100 WBC (Bld) 65.8 % [facility] WBC (Bld) [#/Vol] 3.48 10*3/uL Low 3.99 - 11.19 K/uL [facility] Abs Baso Auto < Normal 0.00-0.15 [facility] Comment on above: Performed By: #### L [id number] ####[facility] (DEFAULT)[address] [place] [address] Basophils/100 WBC (Bld) 0.9 % Normal [facility] Comment on above: Performed By: #### L [id number] ####[facility] (DEFAULT)[address] [place] [address] DIFF STATUS Electronic Differential Normal [facility] Comment on above: Performed By: #### L [id number] ####[facility] (DEFAULT)[address] [place] [address] Eosinophils (Bld) [#/Vol] 0.04 10*3/uL Normal 0.00-0.42 [facility] Comment on above: Performed By: #### L [id number] ####[facility] (DEFAULT)[address] [place] [address] Eosinophils/100 WBC (Bld) 1.1 % Normal [facility] Comment on above: Performed By: #### L [id number] ####[facility] (DEFAULT)[address] [place] [address] Hematocrit (Bld) [Volume fraction] 32.1 % Low 34.9-44.3 [facility] Comment on above: Performed By: #### L [id number] ####[facility] (DEFAULT)[address] [place] [address] Hemoglobin (Bld) [Mass/Vol] 10.8 g/dL Low 11.4-15.2 [facility] Comment on above: Performed By: #### L [id number] ####[facility] (DEFAULT)[address] [place] [address] Immature Grans % 0.3 % Normal [facility] Comment on above: Performed By: #### L [id number] ####[facility] (DEFAULT)[address] [place] [address] Immature Grans Absolute < Normal <=0.08 [facility] Comment on above: Performed By: #### L [id number] ####[facility] (DEFAULT)[address] [place] [address] Lymphocytes (Bld) [#/Vol] 0.76 10*3/uL Low 1.16-3.51 [facility] Comment on above: Performed By: #### L [id number] ####[facility] (DEFAULT)[address] [place] [address] Lymphocytes/100 WBC (Bld) 21.8 % Normal [facility] Comment on above: Performed By: #### L [id number] ####[facility] (DEFAULT)[address] [place] [address] MCV (RBC) [Entitic vol] 91.2 fL Normal 79.6-97.7 [facility] Comment on above: Performed By: #### L [id number] ####[facility] (DEFAULT)[address] [place] [address] Mean Cell Hgb 30.7 pg Normal 25.9-33.9 [facility] Comment on above: Performed By: #### L [id number] ####[facility] (DEFAULT)[address] [place] [address] Mean Cell Hgb Conc 33.6 g/dL Normal 31.4-35.9 [facility] Comment on above: Performed By: #### L [id number] ####[facility] (DEFAULT)[address] [place] [address] Monocytes (Bld) [#/Vol] 0.35 10*3/uL Normal 0.22-0.87 [facility] Comment on above: Performed By: #### L [id number] ####[facility] (DEFAULT)[address] [place] [address] Monocytes/100 WBC (Bld) 10.1 % Normal [facility] Comment on above: Performed By: #### L [id number] ####[facility] (DEFAULT)[address] [place] [address] Nucleated RBC 0.0 /100 WBC Normal <=0.2 [facility] Comment on above: Performed By: #### L [id number] ####[facility] (DEFAULT)[address] [place] [address] Platelet mean volume (Bld) [Entitic vol] 8.9 fL Normal 8.5-12.2 [facility] Comment on above: Performed By: #### L [id number] ####[facility] (DEFAULT)[address] [place] [address] Platelets (Bld) [#/Vol] 265 10*3/uL Normal 150-393 [facility] Comment on above: Performed By: #### L [id number] ####[facility] (DEFAULT)[address] [place] [address] RBC (Bld) [#/Vol] 3.52 10*6/uL Low 3.91-5.04 [facility] Comment on above: Performed By: #### L [id number] ####[facility] (DEFAULT)[address] [place] [address] RBC Distribution 16.2 % High 10.8-14.[address] [facility] Comment on above: Performed By: #### L [id number] ####[facility] (DEFAULT)[address] [place] [address] Segs + Bands Auto 65.8 % Normal [facility] Comment on above: Performed By: #### L [id number] ####[facility] (DEFAULT)[address] [place] [address] Segs + Bands,Absolute Auto 2.29 K/uL Normal 1.64-7.28 [facility] Comment on above: Performed By: #### L [id number] ####[facility] (DEFAULT)[address] [place] [address] WBC (Bld) [#/Vol] 3.48 10*3/uL Low 3.99-11.19 [facility] Comment on above: Performed By: #### L [id number] ####[facility] (DEFAULT)[address] [place] [address] CBC AND ELECTRONIC DIFFon Basophils (Bld) [#/Vol] 0.04 10*3/uL 0.00 - 0.15 K/uL [facility] Basophils/100 WBC (Bld) 1.0 % [facility] Differential cell count method Nom (Bld) Electronic Differential [facility] Eosinophils (Bld) [#/Vol] 0.04 10*3/uL 0.00 - 0.42 K/uL [facility] Eosinophils/100 WBC (Bld) 1.0 % [facility] Erythrocyte distribution width (RBC) [Ratio] 16.1 % High 10.8 - 14.9 % [facility] Hematocrit (Bld) [Volume fraction] 32.6 % Low 34.9 - 44.3 % [facility] Hemoglobin (Bld) [Mass/Vol] 11.1 g/dL Low 11.4 - 15.2 g/dL [facility] Immature granulocytes (Bld) [#/Vol] K/uL NINF - 0.08 K/uL [facility] Immature granulocytes/100 WBC (Bld) 0.3 % [facility] Interpretation and review of laboratory results Abnormal [facility] Lymphocytes (Bld) [#/Vol] 0.86 10*3/uL Low 1.16 - 3.51 K/uL [facility] Lymphocytes/100 WBC (Bld) 21.9 % [facility] MCH (RBC) [Entitic mass] 30.7 pg 25.9 - 33.[address] [facility] MCHC (RBC) [Mass/Vol] 34.0 g/dL 31.4 - 35.9 g/dL [facility] MCV (RBC) [Entitic vol] 90.1 fL 79.6 - 97.[address] [facility] Monocytes (Bld) [#/Vol] 0.51 10*3/uL 0.22 - 0.87 K/uL [facility] Monocytes/100 WBC (Bld) 13.0 % [facility] Neutrophils (Bld) [#/Vol] 2.46 10*3/uL 1.64 - 7.28 K/uL [facility] Nucleated RBC/100 WBC (Bld) [Ratio] 0.0 % NINF [facility] Platelet mean volume (Bld) [Entitic vol] 9.0 fL 8.5 - 12.[address] [facility] Platelets (Bld) [#/Vol] 255 10*3/uL 150 - 393 K/uL [facility] RBC (Bld) [#/Vol] 3.62 10*6/uL Low [facility] Segmented neutrophils/100 WBC (Bld) 62.8 % [facility] WBC (Bld) [#/Vol] 3.92 10*3/uL Low 3.99 - 11.19 K/uL [facility] Basophils (Bld) [#/Vol] 0.04 10*3/uL Normal 0.00-0.15 [facility] Comment on above: Performed By: #### L [id number] ####[facility] (DEFAULT)[address] [place] [address] Basophils/100 WBC (Bld) 1.0 % Normal [facility] Comment on above: Performed By: #### L [id number] ####[facility] (DEFAULT)[address] [place] [address] DIFF STATUS Electronic Differential Normal [facility] Comment on above: Performed By: #### L [id number] ####[facility] (DEFAULT)[address] [place] [address] Eosinophils (Bld) [#/Vol] 0.04 10*3/uL Normal 0.00-0.42 [facility] Comment on above: Performed By: #### L [id number] ####[facility] (DEFAULT)[address] [place] [address] Eosinophils/100 WBC (Bld) 1.0 % Normal [facility] Comment on above: Performed By: #### L [id number] ####[facility] (DEFAULT)[address] [place] [address] Hematocrit (Bld) [Volume fraction] 32.6 % Low 34.9-44.3 [facility] Comment on above: Performed By: #### L [id number] ####[facility] (DEFAULT)[address] [place] [address] Hemoglobin (Bld) [Mass/Vol] 11.1 g/dL Low 11.4-15.2 [facility] Comment on above: Performed By: #### L [id number] ####[facility] (DEFAULT)[address] [place] [address] Immature Grans % 0.3 % Normal [facility] Comment on above: Performed By: #### L [id number] ####[facility] (DEFAULT)[address] [place], [place] [address], [place] [address] Immature Grans Absolute < Normal <=0.08 [facility] Comment on above: Performed By: #### L [id number] ####[facility] (DEFAULT)[address] [place] [address] Lymphocytes (Bld) [#/Vol] 0.86 10*3/uL Low 1.16-3.51 [facility] Comment on above: Performed By: #### L [id number] ####[facility] (DEFAULT)[address] [place] [address] Lymphocytes/100 WBC (Bld) 21.9 % Normal [facility] Comment on above: Performed By: #### L [id number] ####[facility] (DEFAULT)[address] [place] [address] MCV (RBC) [Entitic vol] 90.1 fL Normal 79.6-97.7 [facility] Comment on above: Performed By: #### L [id number] ####[facility] (DEFAULT)[address] [place] [address] Mean Cell Hgb 30.7 pg Normal 25.9-33.9 [facility] Comment on above: Performed By: #### L [id number] ####[facility] (DEFAULT)[address] [place] [address] Mean Cell Hgb Conc 34.0 g/dL Normal 31.4-35.9 [facility] Comment on above: Performed By: #### L [id number] ####[facility] (DEFAULT)[address] [place] [address] Monocytes (Bld) [#/Vol] 0.51 10*3/uL Normal 0.22-0.87 [facility] Comment on above: Performed By: #### L [id number] ####[facility] (DEFAULT)[address] [place] [address] Monocytes/100 WBC (Bld) 13.0 % Normal [facility] Comment on above: Performed By: #### L [id number] ####[facility] (DEFAULT)[address] [place] [address] Nucleated RBC 0.0 /100 WBC Normal <=0.2 [facility] Comment on above: Performed By: #### L [id number] ####[facility] (DEFAULT)[address] [place] [address] Platelet mean volume (Bld) [Entitic vol] 9.0 fL Normal 8.5-12.2 [facility] Comment on above: Performed By: #### L [id number] ####[facility] (DEFAULT)[address] [place] [address] Platelets (Bld) [#/Vol] 255 10*3/uL Normal 150-393 [facility] Comment on above: Performed By: #### L [id number] ####[facility] (DEFAULT)[address] [place] [address] RBC (Bld) [#/Vol] 3.62 10*6/uL Low 3.91-5.04 [facility] Comment on above: Performed By: #### L [id number] ####[facility] (DEFAULT)[address] [place] [address] RBC Distribution 16.1 % High 10.8-14.[address] [facility] Comment on above: Performed By: #### L [id number] ####[facility] (DEFAULT)[address] [place] [address] Segs + Bands Auto 62.8 % Normal [facility] Comment on above: Performed By: #### L [id number] ####[facility] (DEFAULT)[address] [facility] [place] [address] Segs + Bands,Absolute Auto 2.46 K/uL Normal 1.64-7.28 [facility] Comment on above: Performed By: #### L [id number] ####[facility] (DEFAULT)[address] [place] [address] WBC (Bld) [#/Vol] 3.92 10*3/uL Low 3.99-11.19 [facility] Comment on above: Performed By: #### L [id number] ####[facility] (DEFAULT)[address] [place] [address] CBC AND ELECTRONIC DIFFon Abs Baso Auto Normal [facility] Comment on above: Performed By: #### L [id number] ####[facility] (DEFAULT)[address] [place] [address] Abs Eos Auto Normal [facility] Comment on above: Performed By: #### L [id number] ####[facility] (DEFAULT)[address] [place] [address] Abs Lymph Auto Normal [facility] Comment on above: Performed By: #### L [id number] ####[facility] (DEFAULT)[address] [place] [address] Abs [place] Auto Normal [facility] Comment on above: Performed By: #### L [id number] ####[facility] (DEFAULT)[address] [place] [address] Basophil % Auto Normal [facility] Comment on above: Performed By: #### L [id number] ####[facility] (DEFAULT)[address] [place] [address] Eosinophil % Auto Normal [facility] Comment on above: Performed By: #### L [id number] ####[facility] (DEFAULT)[address] [place] [address] Hematocrit (Bld) [Volume fraction] 34.0 % Low 34.9-44.3 [facility] Comment on above: Performed By: #### L [id number] ####[facility] (DEFAULT)[address] [place] [address] Hemoglobin (Bld) [Mass/Vol] 11.5 g/dL Normal 11.4-15.2 [facility] Comment on above: Performed By: #### L [id number] ####[facility] (DEFAULT)[address] [place] [address] Immature Grans % Normal [facility] Comment on above: Performed By: #### L [id number] ####[facility] (DEFAULT)[address] [place] [address] Immature Grans Absolute Normal [facility] Comment on above: Performed By: #### L [id number] ####[facility] (DEFAULT)[address] [place] [address] Lymphocyte % Auto Normal [facility] Comment on above: Performed By: #### L [id number] ####[facility] (DEFAULT)[address] [place] [address] MCV (RBC) [Entitic vol] 90.4 fL Normal 79.6-97.7 [facility] Comment on above: Performed By: #### L [id number] ####[facility] (DEFAULT)[address] [place] [address] Mean Cell Hgb 30.6 pg Normal 25.9-33.9 [facility] Comment on above: Performed By: #### L [id number] ####[facility] (DEFAULT)[address] [place] [address] Mean Cell Hgb Conc 33.8 g/dL Normal 31.4-35.9 [facility] Comment on above: Performed By: #### L [id number] ####[facility] (DEFAULT)[address] [place] [address] Monocyte % Auto Normal [facility] Comment on above: Performed By: #### L [id number] ####[facility] (DEFAULT)[address] [place] [address] Platelet mean volume (Bld) [Entitic vol] 8.4 fL Low 8.5-12.2 [facility] Comment on above: Performed By: #### L [id number] ####[facility] (DEFAULT)[address] [place] [address] Platelets (Bld) [#/Vol] 191 10*3/uL Normal 150-393 [facility] Comment on above: Performed By: #### L [id number] ####[facility] (DEFAULT)[address] [place] [address] RBC (Bld) [#/Vol] 3.76 10*6/uL Low 3.91-5.04 [facility] Comment on above: Performed By: #### L [id number] ####[facility] (DEFAULT)[address] [place] [address] RBC Distribution 16.6 % High 10.8-14.[address] [facility] Comment on above: Performed By: #### L [id number] ####[facility] (DEFAULT)[address] [place] [address] Segs + Bands Auto Normal [facility] Comment on above: Performed By: #### L [id number] ####[facility] (DEFAULT)[address] [place] [address] Segs + Bands,Absolute Auto Normal [facility] Comment on above: Performed By: #### L [id number] ####[facility] (DEFAULT)[address] [place] [address] WBC (Bld) [#/Vol] 5.59 10*3/uL Normal 3.99-11.19 [facility] Comment on above: Performed By: #### L [id number] ####[facility] (DEFAULT)[address] [place] [address] CMPN WITHOUT GLUCOSEon 04-19 Albumin [Mass/Vol] 4.3 g/dL Normal 3.5-5.0 [facility] Comment on above: Performed By: #### C MPNG, GLUC ####[facility] (DEFAULT)[address] [place] [address] ALP [Catalytic activity/Vol] 92 U/L Normal 32-126 [facility] Comment on above: Performed By: #### C MPNG, GLUC ####[facility] (DEFAULT)[address] [place] [address] ALT [Catalytic activity/Vol] 21 U/L Normal 9-48 [facility] Comment on above: Performed By: #### C MPNG, GLUC ####[facility] (DEFAULT)[address] [place] [address] Anion gap [Moles/Vol] 10 mmol/L Normal 7-17 [facility] Comment on above: Performed By: #### C MPNG, GLUC ####[facility] (DEFAULT)[address] [place] [address] AST [Catalytic activity/Vol] 16 U/L Normal 10-39 [facility] Comment on above: Performed By: #### C MPNG, GLUC ####[facility] (DEFAULT)[address] [place] [address] Bilirubin [Mass/Vol] 0.4 mg/dL Normal <1.5 [facility] Comment on above: Performed By: #### C MPNG, GLUC ####[facility] (DEFAULT)[address] [place] [address] Calcium [Mass/Vol] 9.3 mg/dL Normal 8.6-10.5 [facility] Comment on above: Performed By: #### C MPNG, GLUC ####[facility] (DEFAULT)[address] [place] [address] Chloride [Moles/Vol] 104 mmol/L Normal 98-108 [facility] Comment on above: Performed By: #### C MPNG, GLUC ####[facility] (DEFAULT)[address] [place] [address] CO2 [Moles/Vol] 28 mmol/L Normal 21-31 [facility] Comment on above: Performed By: #### C MPNG, GLUC ####[facility] (DEFAULT)[address] [place] [address] Creatinine [Mass/Vol] 0.51 mg/dL Normal 0.50-1.20 [facility] Comment on above: Performed By: #### C MPNG, GLUC ####[facility] (DEFAULT)[address] [place] [address] eGFR, CKD-EPI, Female > Normal >=60 [facility] Comment on above: Result Comment: Repo rted eGFR is based on the CKD-EPI 2020 equation using creatinine, age, and sex. Performed By: #### C MPNG, GLUC ####[facility] (DEFAULT)[address] [place] [address] Potassium [Moles/Vol] 4.0 mmol/L Normal 3.5-5.0 [facility] Comment on above: Performed By: #### C MPNG, GLUC ####[facility] (DEFAULT)[address] [place] [address] Protein [Mass/Vol] 6.6 g/dL Normal 6.4-8.3 [facility] Comment on above: Performed By: #### C MPNG, GLUC ####[facility] (DEFAULT)[address] [place] [address] Sodium [Moles/Vol] 138 mmol/L Normal 135-145 [facility] Comment on above: Performed By: #### C MPNG, GLUC ####[facility] (DEFAULT)[address] [place] [address] Urea nitrogen [Mass/Vol] 14 mg/dL Normal 7-25 [facility] Comment on above: Performed By: #### C MPNG, GLUC ####[facility] (DEFAULT)[address] [place] [address] Urea nitrogen/Creatinine [Mass ratio] 27 mg/mg Normal [facility] Comment on above: Performed By: #### C MPNG, GLUC ####[facility] (DEFAULT)[address] [place] [address] GLUCOSEon 10-18-2024 Glucose [Mass/Vol] 81 mg/dL Normal 70-99 [facility] Comment on above: Order Comment: If [place] is diabetic, on steroids, on olanzapine, or on a checkpoint inhibitor (atezolizumab, pembrolizumab, nivolumab, etc.).For screening of diabetes Z13.1 Performed By: #### C MPNG, GLUC ####[facility] (DEFAULT)[address] [place] [address] Laboratory - Chemistry and C hemistry - challengeon 04-19-2024 Albumin [Mass/Vol] 4.3 g/dL 3.5 - 5.0 [facility] ALP [Catalytic activity/Vol] 92 U/L 32 - 126 U/L [facility] ALT [Catalytic activity/Vol] 21 U/L 9 - 48 U/L [facility] Anion gap [Moles/Vol] 10 mmol/L 7 - 17 mmol/L [facility] AST [Catalytic activity/Vol] 16 U/L 10 - 39 U/L [facility] Bilirubin [Mass/Vol] 0.4 mg/dL NINF - 1.5 mg/dL [facility] Calcium [Mass/Vol] 9.3 mg/dL 8.6 - 10. 5 mg/dL [facility] Chloride [Moles/Vol] 104 mmol/L 98 - 10 8 mmol/L [facility] CO2 [Moles/Vol] 28 mmol/L 21 - 31 mmol/L [facility] Creatinine [Mass/Vol] 0.51 mg/dL 0.50 - 1.20 mg/dL [facility] Glucose [Mass/Vol] 81 mg/dL 70 - 99 mg/dL [facility] Potassium [Moles/Vol] 4.0 mmol/L 3.5 - 5.0 mmol/L [facility] Protein [Mass/Vol] 6.6 g/dL 6.4 - 8.3 g/dL [facility] Sodium [Moles/Vol] 138 mmol/L 135 - 145 mmol/L [facility] Urea nitrogen [Mass/Vol] 14 mg/dL 7 - 25 mg/dL [facility] Urea nitrogen/Creatinine [Mass ratio] 27 mg/mg [facility] Laboratory - Hematology and Cell countson 04-19-2024 Band form neutrophils/100 WBC (Bld) 1.0 % [facility] Basophils (Bld) [#/Vol] [facility] Basophils (Bld) [#/Vol] 0.06 10*3/uL 0.00 - 0.15 K/uL [facility] Basophils/100 WBC (Bld) [facility] Basophils/100 WBC (Bld) 1.0 % [facility] Differential cell count method Nom (Bld) Manual Differential [facility] Eosinophils (Bld) [#/Vol] [facility] Eosinophils/100 WBC (Bld) [facility] Eosinophils/100 WBC (Bld) 1.0 % [facility] Erythrocyte distribution width (RBC) [Ratio] 16.6 % High 10.8 - 14.9 % [facility] Hematocrit (Bld) [Volume fraction] 34.0 % Low 34.9 - 44.3 % [facility] Hemoglobin (Bld) [Mass/Vol] 11.5 g/dL 11.4 - 15.2 g/dL [facility] Immature granulocytes (Bld) [#/Vol] [facility] Immature granulocytes/100 WBC (Bld) [facility] Lymphocytes (Bld) [#/Vol] [facility] Lymphocytes (Bld) [#/Vol] 1.62 10*3/uL 1.16 - 3.51 K/uL [facility] Lymphocytes/100 WBC (Bld) [facility] Lymphocytes/100 WBC (Bld) 29.0 % [facility] MCH (RBC) [Entitic mass] 30.6 pg 25.9 - 33.[address] [facility] MCHC (RBC) [Mass/Vol] 33.8 g/dL 31.4 - 35.9 g/dL [facility] MCV (RBC) [Entitic vol] 90.4 fL 79.6 - 97.[address] [facility] Metamyelocytes (Bld) [#/Vol] 0.06 10*3/uL NINF - 0.08 K/uL [facility] Monocytes (Bld) [#/Vol] [facility] Monocytes (Bld) [#/Vol] 0.45 10*3/uL 0.22 - 0.87 K/uL [facility] Monocytes/100 WBC (Bld) [facility] Monocytes/100 WBC (Bld) 8.0 % [facility] Myelocytes (Bld) [#/Vol] 0.17 10*3/uL High NINF - 0.08 K/uL [facility] Neutrophils (Bld) [#/Vol] 3.19 10*3/uL 1.64 - 7.28 K/uL [facility] Neutrophils/100 WBC (Bld) [facility] Normoblasts Polychromatophilic/1 00 cells Microscopy (Bld) 1+ Abnormal (none) [facility] Nucleated RBC/100 WBC (Bld) [Ratio] 0.0 % [facility] Platelet mean volume (Bld) [Entitic vol] 8.4 fL Low 8.5 - 12.[address] [facility] Platelets (Bld) [#/Vol] 191 10*3/uL 150 - 393 K/uL [facility] Platelets Estimate (Bld) [#/Vol] Automated platelet count confirmed by manual slide review [facility] RBC (Bld) [#/Vol] 3.76 10*6/uL Low [facility] RBC morphology finding Nom (Bld) RBC INDICES CONFIRMED WITH MANUAL SLIDE REVIEW [facility] Segmented neutrophils/100 WBC (Bld) [facility] Segmented neutrophils/100 WBC (Bld) 56.0 % [facility] WBC (Bld) [#/Vol] 5.59 10*3/uL 3.99 - 11.19 K/uL [facility] No Panel Informationon 04-19 Abs Eos Manual 0.[address] [facility] Interpretation and review of laboratory results Abnormal [facility] Metamyelocyte Relative 1.0 % [facility] Myelocyte Relative 3.0 % [facility] eGFR, CKD-EPI, Female - PINF [facility] Comment on above: Reported eGFR is bas ed on the CKD-EPI 2020 equation using creatinine, age, and sex. Interpretation and review of laboratory results Normal [facility] CBC AND ELECTRONIC DIFFon Basophils (Bld) [#/Vol] [facility] Basophils/100 WBC (Bld) [facility] Eosinophils (Bld) [#/Vol] [facility] Eosinophils/100 WBC (Bld) [facility] Erythrocyte distribution width (RBC) [Ratio] 15.7 % High 10.8 - 14.9 % [facility] Hematocrit (Bld) [Volume fraction] 36.6 % 34.9 - 44.3 % [facility] Hemoglobin (Bld) [Mass/Vol] 11.9 g/dL 11.4 - 15.2 g/dL [facility] Immature granulocytes (Bld) [#/Vol] [facility] Immature granulocytes/100 WBC (Bld) [facility] Lymphocytes (Bld) [#/Vol] [facility] Lymphocytes/100 WBC (Bld) [facility] MCH (RBC) [Entitic mass] 29.5 pg 25.9 - 33.[address] [facility] MCHC (RBC) [Mass/Vol] 32.5 g/dL 31.4 - 35.9 g/dL [facility] MCV (RBC) [Entitic vol] 90.6 fL 79.6 - 97.[address] [facility] Monocytes (Bld) [#/Vol] [facility] Monocytes/100 WBC (Bld) [facility] Neutrophils/100 WBC (Bld) [facility] Platelet mean volume (Bld) [Entitic vol] 8.7 fL 8.5 - 12.[address] [facility] Platelets (Bld) [#/Vol] 226 10*3/uL 150 - 393 K/uL [facility] RBC (Bld) [#/Vol] 4.04 10*6/uL [facility] Segmented neutrophils/100 WBC (Bld) [facility] WBC (Bld) [#/Vol] 7.20 10*3/uL 3.99 - 11.19 K/uL [facility] Abs Baso Auto Normal [facility] Comment on above: Performed By: #### L [id number] ####[facility] (DEFAULT)[address] [place] [address] Abs Eos Auto Normal [facility] Comment on above: Performed By: #### L [id number] ####[facility] (DEFAULT)[address] [place] [address] Abs Lymph Auto Normal [facility] Comment on above: Performed By: #### L [id number] ####[facility] (DEFAULT)[address] [place] [address], [place] [address] Abs [place] Auto Normal [facility] Comment on above: Performed By: #### L [id number] ####[facility] (DEFAULT)[address] [place] [address] Basophil % Auto Normal [facility] Comment on above: Performed By: #### L [id number] ####[facility] (DEFAULT)[address] [place] [address] Eosinophil % Auto Normal [facility] Comment on above: Performed By: #### L [id number] ####[facility] (DEFAULT)[address] [place] [address] Hematocrit (Bld) [Volume fraction] 36.6 % Normal 34.9-44.3 [facility] Comment on above: Performed By: #### L [id number] ####[facility] (DEFAULT)[address] [place] [address] Hemoglobin (Bld) [Mass/Vol] 11.9 g/dL Normal 11.4-15.2 [facility] Comment on above: Performed By: #### L [id number] ####[facility] (DEFAULT)[address] [place] [address] Immature Grans % Normal [facility] Comment on above: Performed By: #### L [id number] ####[facility] (DEFAULT)[address] [place] [address] Immature Grans Absolute Normal [facility] Comment on above: Performed By: #### L [id number] ####[facility] (DEFAULT)[address] [place] [address] Lymphocyte % Auto Normal [facility] Comment on above: Performed By: #### L [id number] ####[facility] (DEFAULT)[address] [place] [address] MCV (RBC) [Entitic vol] 90.6 fL Normal 79.6-97.7 [facility] Comment on above: Performed By: #### L [id number] ####[facility] (DEFAULT)[address] [place] [address] Mean Cell Hgb 29.5 pg Normal 25.9-33.9 [facility] Comment on above: Performed By: #### L [id number] ####[facility] (DEFAULT)[address] [place] [address] Mean Cell Hgb Conc 32.5 g/dL Normal 31.4-35.9 [facility] Comment on above: Performed By: #### L [id number] ####[facility] (DEFAULT)[address] [place] [address] Monocyte % Auto Normal [facility] Comment on above: Performed By: #### L [id number] ####[facility] (DEFAULT)[address] [place] [address] Platelet mean volume (Bld) [Entitic vol] 8.7 fL Normal 8.5-12.2 [facility] Comment on above: Performed By: #### L [id number] ####[facility] (DEFAULT)[address] [place] [address] Platelets (Bld) [#/Vol] 226 10*3/uL Normal 150-393 [facility] Comment on above: Performed By: #### L [id number] ####[facility] (DEFAULT)[address] [place] [address] RBC (Bld) [#/Vol] 4.04 10*6/uL Normal 3.91-5.04 [facility] Comment on above: Performed By: #### L [id number] ####[facility] (DEFAULT)[address] [place] [address] RBC Distribution 15.7 % High 10.8-14.[address] [facility] Comment on above: Performed By: #### L [id number] ####[facility] (DEFAULT)[address] [place] [address] Segs + Bands Auto Normal [facility] Comment on above: Performed By: #### L [id number] ####[facility] (DEFAULT)[address] [place] [address] Segs + Bands,Absolute Auto Normal [facility] Comment on above: Performed By: #### L [id number] ####[facility] (DEFAULT)[address] [place] [address] WBC (Bld) [#/Vol] 7.20 10*3/uL Normal 3.99-11.19 [facility] Comment on above: Performed By: #### L [id number] ####[facility] (DEFAULT)[address] [place] [address] MANUAL DIFFon 04-05-2024 Abs Eos Manual 0.[address] [facility] Band form neutrophils/100 WBC (Bld) 2.0 % [facility] Basophils (Bld) [#/Vol] 0.07 10*3/uL 0.00 - 0.15 K/uL [facility] Basophils/100 WBC (Bld) 1.0 % [facility] Differential cell count method Nom (Bld) Manual Differential [facility] Eosinophils/100 WBC (Bld) 0.0 % [facility] Lymphocytes (Bld) [#/Vol] 0.86 10*3/uL Low 1.16 - 3.51 K/uL [facility] Lymphocytes/100 WBC (Bld) 12.0 % [facility] Metamyelocyte Relative 2.0 % [facility] Metamyelocytes (Bld) [#/Vol] 0.14 10*3/uL High NINF - 0.08 K/uL [facility] Monocytes (Bld) [#/Vol] 0.65 10*3/uL 0.22 - 0.87 K/uL [facility] Monocytes/100 WBC (Bld) 9.0 % [facility] Neutrophils (Bld) [#/Vol] 5.47 10*3/uL 1.64 - 7.28 K/uL [facility] Nucleated RBC/100 WBC (Bld) [Ratio] 0.0 % [facility] Platelets Estimate (Bld) [#/Vol] Automated platelet count confirmed by manual slide review [facility] RBC morphology finding Nom (Bld) RBC INDICES CONFIRMED WITH MANUAL SLIDE REVIEW [facility] Segmented neutrophils/100 WBC (Bld) 74.0 % [facility] No Panel Informationon 04-05 Interpretation and review of laboratory results Abnormal [facility] SURG PATH REQUESTon 04-03-20 Case Report Normal [facility] Comment on above: Result Comment: Surg ical Pathology Report Case: [id number] Provider: Leonila An MD Collected: 04/03/2024 12:04 PMOrdering Location: [facility] Received: 04/03/2024 12:05 PM RHODESPathologist: REID Fletcherpecimen: SURG PATH, Right Axillary Lymph Node, Core Biopsy; Right Breast, Core Biopsy Performed By: #### S URGP ####[facility] (DEFAULT)[address] [place] [address] Diagnosis Comments All submitted contro ls show appropriate reactivity. Normal [facility] Comment on above: Performed By: #### S URGP ####[facility] (DEFAULT)[address] [place] [address] Gross Description [facility] Comment on above: Result Comment: The following material(s) are received from [facility], [address] [place] [address], with an identifying surgical pathology report that includes the Breast Cancer Summary results, a copy of the patient's immunohistochemistry / In Situ Hybridization (ADELITA) report as well as a copy of the patient's consultation report from [facility]: 5 H&E slide(s) and 18 non-H&E slide(s), labeled [id number].Outside materials are returned in sixty (60) days under separate cover with our number recorded on them.Grosser for this case was: Gabriela Keating Performed By: #### S URGP ####[facility] (DEFAULT)[address] [place] [address] Microscopic Description A microscopic examination was performed. Normal [facility] Comment on above: Performed By: #### S URGP ####[facility] (DEFAULT)[address] [place] [address] Pathologic Diagnosis [facility] Comment on above: Result Comment: Outs tayo Slides:[id number] (01/24/2024)A. Right Axillary Lymph Node, Core Biopsy:Fragments of lymph node with metastatic carcinoma (3 mm deposit)Comment: The provided immunohistochemical stains for pankeratin and GATA3 ae positive, supporting breast primary.B. Right Breast, Core Biopsy:Invasive ductal carcinoma, grade 3 (score: tubule 3, nuclear 3, mitotic 3), 0.8 cm in greatest lengthBiomarker results using slides and reports from the outside institution:ER: Positive (95%, strong intensity)VA: Positive (30%, moderate intensity)HER2: Equivocal (score 2+)HER2 FISH: Negative (ratio: 1.0, HER2/cell: 2.1) per reportComment: The provided immunohistochemical stains for MOC31 and CK8 are positive while CK5/6, calponin and p40 are negative. E-cadherin shows membranous staining, supporting ductal phenotype. Performed By: #### S URGP ####[facility] (DEFAULT)[address] [place] [address] Professional Interpretation Performed at: [facility] Comment on above: Result Comment: [facility] CLINICAL LABORATORYFor Immediate Release to [facility] [id number] [place] [address] Performed By: #### S URGP ####[facility] (DEFAULT)[address] [place] [address] CBC AND ELECTRONIC DIFFon Basophils (Bld) [#/Vol] [facility] Basophils/100 WBC (Bld) [facility] Eosinophils (Bld) [#/Vol] [facility] Eosinophils/100 WBC (Bld) [facility] Erythrocyte distribution width (RBC) [Ratio] 14.2 % 10.8 - 14.9 % [facility] Hematocrit (Bld) [Volume fraction] 35.8 % 34.9 - 44.3 % [facility] Hemoglobin (Bld) [Mass/Vol] 11.8 g/dL 11.4 - 15.2 g/dL [facility] Immature granulocytes (Bld) [#/Vol] [facility] Immature granulocytes/100 WBC (Bld) [facility] Lymphocytes (Bld) [#/Vol] [facility] Lymphocytes/100 WBC (Bld) [facility] MCH (RBC) [Entitic mass] 29.4 pg 25.9 - 33.[address] [facility] MCHC (RBC) [Mass/Vol] 33.0 g/dL 31.4 - 35.9 g/dL [facility] MCV (RBC) [Entitic vol] 89.1 fL 79.6 - 97.[address] [facility] Monocytes (Bld) [#/Vol] [facility] Monocytes/100 WBC (Bld) [facility] Neutrophils/100 WBC (Bld) [facility] Platelet mean volume (Bld) [Entitic vol] 8.5 fL 8.5 - 12.[address] [facility] Platelets (Bld) [#/Vol] 202 10*3/uL 150 - 393 K/uL [facility] RBC (Bld) [#/Vol] 4.02 10*6/uL [facility] Segmented neutrophils/100 WBC (Bld) [facility] WBC (Bld) [#/Vol] 6.98 10*3/uL 3.99 - 11.19 K/uL [facility] Abs Baso Auto Normal [facility] Comment on above: Performed By: #### L [id number] ####[facility] (DEFAULT)[address] [place] [address] Abs Eos Auto Normal [facility] Comment on above: Performed By: #### L [id number] ####[facility] (DEFAULT)[address] [place] [address] Abs Lymph Auto Normal [facility] Comment on above: Performed By: #### L [id number] ####[facility] (DEFAULT)[address] [place] [address] Abs [place] Auto Normal [facility] Comment on above: Performed By: #### L [id number] ####[facility] (DEFAULT)[address] [place] [address] Basophil % Auto Normal [facility] Comment on above: Performed By: #### L [id number] ####[facility] (DEFAULT)[address] [place] [address] Eosinophil % Auto Normal [facility] Comment on above: Performed By: #### L [id number] ####[facility] (DEFAULT)[address] [place] [address] Hematocrit (Bld) [Volume fraction] 35.8 % Normal 34.9-44.3 [facility] Comment on above: Performed By: #### L [id number] ####[facility] (DEFAULT)[address] [place] [address] Hemoglobin (Bld) [Mass/Vol] 11.8 g/dL Normal 11.4-15.2 [facility] Comment on above: Performed By: #### L [id number] ####[facility] (DEFAULT)[address] [place] [address] Immature Grans % Normal [facility] Comment on above: Performed By: #### L AB980 ####[facility] (DEFAULT)[address] [place] [address] Immature Grans Absolute Normal [facility] Comment on above: Performed By: #### L [id number] ####[facility] (DEFAULT)[address] [place] [address] Lymphocyte % Auto Normal [facility] Comment on above: Performed By: #### L [id number] ####[facility] (DEFAULT)[address] [place] [address] MCV (RBC) [Entitic vol] 89.1 fL Normal 79.6-97.7 [facility] Comment on above: Performed By: #### L [id number] ####[facility] (DEFAULT)[address] [place] [address] Mean Cell Hgb 29.4 pg Normal 25.9-33.9 [facility] Comment on above: Performed By: #### L [id number] ####[facility] (DEFAULT)[address] [place] [address] Mean Cell Hgb Conc 33.0 g/dL Normal 31.4-35.9 [facility] Comment on above: Performed By: #### L [id number] ####[facility] (DEFAULT)[address] [place] [address] Monocyte % Auto Normal [facility] Comment on above: Performed By: #### L [id number] ####[facility] (DEFAULT)[address] [place] [address] Platelet mean volume (Bld) [Entitic vol] 8.5 fL Normal 8.5-12.2 [facility] Comment on above: Performed By: #### L [id number] ####[facility] (DEFAULT)[address] [place] [address] Platelets (Bld) [#/Vol] 202 10*3/uL Normal 150-393 [facility] Comment on above: Performed By: #### L [id number] ####[facility] (DEFAULT)[address] [place] [address] RBC (Bld) [#/Vol] 4.02 10*6/uL Normal 3.91-5.04 [facility] Comment on above: Performed By: #### L [id number] ####[facility] (DEFAULT)[address] [place] [address] RBC Distribution 14.2 % Normal 10.8-14.[address] [facility] Comment on above: Performed By: #### L [id number] ####[facility] (DEFAULT)[address] [place] [address] Segs + Bands Auto Normal [facility] Comment on above: Performed By: #### L [id number] ####[facility] (DEFAULT)[address] [place] [address] Segs + Bands,Absolute Auto Normal [facility] Comment on above: Performed By: #### L [id number] ####[facility] (DEFAULT)[address] [place] [address] WBC (Bld) [#/Vol] 6.98 10*3/uL Normal 3.99-11.19 [facility] Comment on above: Performed By: #### L [id number] ####[facility] (DEFAULT)[address] [place] [address] CMPN WITHOUT GLUCOSEon 03-22 Albumin [Mass/Vol] 4.1 g/dL 3.5 - 5.0 g/dL [facility] ALP [Catalytic activity/Vol] 84 U/L 32 - 126 U/L [facility] ALT [Catalytic activity/Vol] 21 U/L 9 - 48 U/L [facility] Anion gap [Moles/Vol] 11 mmol/L 7 - 17 mmol/L [facility] AST [Catalytic activity/Vol] 16 U/L 10 - 39 U/L [facility] Bilirubin [Mass/Vol] 0.3 mg/dL NINF - 1.5 mg/dL [facility] Calcium [Mass/Vol] 9.0 mg/dL 8.6 - 10. 5 mg/dL [facility] Chloride [Moles/Vol] 103 mmol/L 98 - 10 8 mmol/L [facility] CO2 [Moles/Vol] 28 mmol/L 21 - 31 mmol/L [facility] Creatinine [Mass/Vol] 0.51 mg/dL 0.50 - 1.20 mg/dL [facility] eGFR, CKD-EPI, Female - PINF [facility] Comment on above: Reported eGFR is bas ed on the CKD-EPI 2020 equation using creatinine, age, and sex. Potassium [Moles/Vol] 3.8 mmol/L 3.5 - 5.0 mmol/L [facility] Protein [Mass/Vol] 6.6 g/dL 6.4 - 8.3 g/dL [facility] Sodium [Moles/Vol] 138 mmol/L 135 - 145 mmol/L [facility] Urea nitrogen [Mass/Vol] 19 mg/dL 7 - 25 mg/dL [facility] Urea nitrogen/Creatinine [Mass ratio] 37 mg/mg [facility] Albumin [Mass/Vol] 4.1 g/dL Normal 3.5-5.0 [facility] Comment on above: Performed By: #### C MPNG ####[facility] (DEFAULT)[address] [place] [address] ALP [Catalytic activity/Vol] 84 U/L Normal 32-126 [facility] Comment on above: Performed By: #### C MPNG ####[facility] (DEFAULT)[address] [place] [address] ALT [Catalytic activity/Vol] 21 U/L Normal 9-48 [facility] Comment on above: Performed By: #### C MPNG ####[facility] (DEFAULT)[address] [place] [address] Anion gap [Moles/Vol] 11 mmol/L Normal 7-17 [facility] Comment on above: Performed By: #### C MPNG ####[facility] (DEFAULT)[address] [place] [address] AST [Catalytic activity/Vol] 16 U/L Normal 10-39 [facility] Comment on above: Performed By: #### C MPNG ####[facility] (DEFAULT)[address] [place] [address] Bilirubin [Mass/Vol] 0.3 mg/dL Normal <1.5 [facility] Comment on above: Performed By: #### C MPNG ####[facility] (DEFAULT)[address] [place] [address] Calcium [Mass/Vol] 9.0 mg/dL Normal 8.6-10.5 [facility] Comment on above: Performed By: #### C MPNG ####[facility] (DEFAULT)[address] [place] [address] Chloride [Moles/Vol] 103 mmol/L Normal 98-108 [facility] Comment on above: Performed By: #### C MPNG ####[facility] (DEFAULT)[address] [place] [address] CO2 [Moles/Vol] 28 mmol/L Normal 21-31 [facility] Comment on above: Performed By: #### C MPNG ####[facility] (DEFAULT)[address] [place] [address] Creatinine [Mass/Vol] 0.51 mg/dL Normal 0.50-1.20 [facility] Comment on above: Performed By: #### C MPNG ####[facility] (DEFAULT)[address] [place] [address] eGFR, CKD-EPI, Female > Normal >=60 [facility] Comment on above: Result Comment: Repo rted eGFR is based on the CKD-EPI 2020 equation using creatinine, age, and sex. Performed By: #### C MPNG ####[facility] (DEFAULT)[address] [place] [address] Potassium [Moles/Vol] 3.8 mmol/L Normal 3.5-5.0 [facility] Comment on above: Performed By: #### C MPNG ####[facility] (DEFAULT)[address] [place] [address] Protein [Mass/Vol] 6.6 g/dL Normal 6.4-8.3 [facility] Comment on above: Performed By: #### C MPNG ####[facility] (DEFAULT)[address] [place] [address] Sodium [Moles/Vol] 138 mmol/L Normal 135-145 [facility] Comment on above: Performed By: #### C MPNG ####[facility] (DEFAULT)[address] [place] [address] Urea nitrogen [Mass/Vol] 19 mg/dL Normal 7-25 [facility] Comment on above: Performed By: #### C MPNG ####[facility] (DEFAULT)[address] [place] [address] Urea nitrogen/Creatinine [Mass ratio] 37 mg/mg Normal [facility] Comment on above: Performed By: #### C MPNG ####[facility] (DEFAULT)[address] [place] [address] MANUAL DIFFon 03-22-2024 Abs Eos Manual 0.[address] [facility] Band form neutrophils/100 WBC (Bld) 1.0 % [facility] Basophils (Bld) [#/Vol] 0.07 10*3/uL 0.00 - 0.15 K/uL [facility] Basophils/100 WBC (Bld) 1.0 % [facility] Differential cell count method Nom (Bld) Manual Differential [facility] Eosinophils/100 WBC (Bld) 0.0 % [facility] Interpretation and review of laboratory results Abnormal [facility] Lymphocytes (Bld) [#/Vol] 1.75 10*3/uL 1.16 - 3.51 K/uL [facility] Lymphocytes/100 WBC (Bld) 25.0 % [facility] Metamyelocyte Relative 2.0 % [facility] Metamyelocytes (Bld) [#/Vol] 0.14 10*3/uL High NINF - 0.08 K/uL [facility] Monocytes (Bld) [#/Vol] 0.56 10*3/uL 0.22 - 0.87 K/uL [facility] Monocytes/100 WBC (Bld) 8.0 % [facility] Myelocyte Relative 2.0 % [facility] Myelocytes (Bld) [#/Vol] 0.14 10*3/uL High NINF - 0.08 K/uL [facility] Neutrophils (Bld) [#/Vol] 4.33 10*3/uL 1.64 - 7.28 K/uL [facility] Nucleated RBC/100 WBC (Bld) [Ratio] 1.0 % High [facility] Platelets Estimate (Bld) [#/Vol] Automated platelet count confirmed by manual slide review [facility] RBC morphology finding Nom (Bld) RBC INDICES CONFIRMED WITH MANUAL SLIDE REVIEW [facility] Segmented neutrophils/100 WBC (Bld) 61.0 % [facility] No Panel Informationon 03-[address] [facility] CBC AND ELECTRONIC DIFFon Basophils (Bld) [#/Vol] [facility] Basophils/100 WBC (Bld) [facility] Eosinophils (Bld) [#/Vol] [facility] Eosinophils/100 WBC (Bld) [facility] Erythrocyte distribution width (RBC) [Ratio] 13.1 % 10.8 - 14.9 % [facility] Hematocrit (Bld) [Volume fraction] 38.3 % 34.9 - 44.3 % [facility] Hemoglobin (Bld) [Mass/Vol] 12.8 g/dL 11.4 - 15.2 g/dL [facility] Immature granulocytes (Bld) [#/Vol] [facility] Immature granulocytes/100 WBC (Bld) [facility] Lymphocytes (Bld) [#/Vol] [facility] Lymphocytes/100 WBC (Bld) [facility] MCH (RBC) [Entitic mass] 29.4 pg 25.9 - 33.[address] [facility] MCHC (RBC) [Mass/Vol] 33.4 g/dL 31.4 - 35.9 g/dL [facility] MCV (RBC) [Entitic vol] 87.8 fL 79.6 - 97.[address] [facility] Monocytes (Bld) [#/Vol] [facility] Monocytes/100 WBC (Bld) [facility] Neutrophils/100 WBC (Bld) [facility] Platelet mean volume (Bld) [Entitic vol] 9.0 fL 8.5 - 12.[address] [facility] Platelets (Bld) [#/Vol] 159 10*3/uL 150 - 393 K/uL [facility] RBC (Bld) [#/Vol] 4.36 10*6/uL [facility] Segmented neutrophils/100 WBC (Bld) [facility] WBC (Bld) [#/Vol] 6.93 10*3/uL 3.99 - 11.19 K/uL [facility] Abs Baso Auto Normal [facility] Comment on above: Performed By: #### L [id number] ####[facility] (DEFAULT)[address] [place] [address] Abs Eos Auto Normal [facility] Comment on above: Performed By: #### L [id number] ####[facility] (DEFAULT)[address] [place] [address], [place] [address] Abs Lymph Auto Normal [facility] Comment on above: Performed By: #### L [id number] ####[facility] (DEFAULT)[address] [place] [address] Abs [place] Auto Normal [facility] Comment on above: Performed By: #### L [id number] ####[facility] (DEFAULT)[address] [place] [address] Basophil % Auto Normal [facility] Comment on above: Performed By: #### L [id number] ####[facility] (DEFAULT)[address] [place] [address] Eosinophil % Auto Normal [facility] Comment on above: Performed By: #### L [id number] ####[facility] (DEFAULT)[address] [place] [address] Hematocrit (Bld) [Volume fraction] 38.3 % Normal 34.9-44.3 [facility] Comment on above: Performed By: #### L [id number] ####[facility] (DEFAULT)[address] [place] [address] Hemoglobin (Bld) [Mass/Vol] 12.8 g/dL Normal 11.4-15.2 [facility] Comment on above: Performed By: #### L [id number] ####[facility] (DEFAULT)[address] [place] [address] Immature Grans % Normal [facility] Comment on above: Performed By: #### L [id number] ####[facility] (DEFAULT)[address] [place] [address] Immature Grans Absolute Normal [facility] Comment on above: Performed By: #### L [id number] ####[facility] (DEFAULT)[address] [place] [address] Lymphocyte % Auto Normal [facility] Comment on above: Performed By: #### L [id number] ####[facility] (DEFAULT)[address] [place] [address], [place] [address] MCV (RBC) [Entitic vol] 87.8 fL Normal 79.6-97.7 [facility] Comment on above: Performed By: #### L [id number] ####[facility] (DEFAULT)[address] [place] [address] Mean Cell Hgb 29.4 pg Normal 25.9-33.9 [facility] Comment on above: Performed By: #### L [id number] ####[facility] (DEFAULT)[address] [place] [address] Mean Cell Hgb Conc 33.4 g/dL Normal 31.4-35.9 [facility] Comment on above: Performed By: #### L [id number] ####[facility] (DEFAULT)[address] [place] [address] Monocyte % Auto Normal [facility] Comment on above: Performed By: #### L [id number] ####[facility] (DEFAULT)[address] [place] [address] Platelet mean volume (Bld) [Entitic vol] 9.0 fL Normal 8.5-12.2 [facility] Comment on above: Performed By: #### L [id number] ####[facility] (DEFAULT)[address] [place] [address] Platelets (Bld) [#/Vol] 159 10*3/uL Normal 150-393 [facility] Comment on above: Performed By: #### L [id number] ####[facility] (DEFAULT)[address] [place] [address] RBC (Bld) [#/Vol] 4.36 10*6/uL Normal 3.91-5.04 [facility] Comment on above: Performed By: #### L [id number] ####[facility] (DEFAULT)[address] [place] [address] RBC Distribution 13.1 % Normal 10.8-14.[address] [facility] Comment on above: Performed By: #### L [id number] ####[facility] (DEFAULT)[address] [place] [address] Segs + Bands Auto Normal [facility] Comment on above: Performed By: #### L [id number] ####[facility] (DEFAULT)[address] [place] [address] Segs + Bands,Absolute Auto Normal [facility] Comment on above: Performed By: #### L [id number] ####[facility] (DEFAULT)[address] [place] [address] WBC (Bld) [#/Vol] 6.93 10*3/uL Normal 3.99-11.19 [facility] Comment on above: Performed By: #### L [id number] ####[facility] (DEFAULT)[address] [place] [address] EXTRA MINT GREEN TOPon 03-[address] [facility] MANUAL DIFFon 03-08-2024 Abs Eos Manual 0.[address] [facility] Band form neutrophils/100 WBC (Bld) 2.0 % [facility] Basophils (Bld) [#/Vol] 0.07 10*3/uL 0.00 - 0.15 K/uL [facility] Basophils/100 WBC (Bld) 1.0 % [facility] Differential cell count method Nom (Bld) Manual Differential [facility] Eosinophils/100 WBC (Bld) 1.0 % [facility] Interpretation and review of laboratory results Abnormal [facility] Lymphocytes (Bld) [#/Vol] 2.29 10*3/uL 1.16 - 3.51 K/uL [facility] Lymphocytes/100 WBC (Bld) 33.0 % [facility] Metamyelocyte Relative 3.0 % [facility] Metamyelocytes (Bld) [#/Vol] 0.21 10*3/uL High NINF - 0.08 K/uL [facility] Monocytes (Bld) [#/Vol] 0.42 10*3/uL 0.22 - 0.87 K/uL [facility] Monocytes/100 WBC (Bld) 6.0 % [facility] Myelocyte Relative 1.0 % [facility] Myelocytes (Bld) [#/Vol] 0.07 10*3/uL NINF - 0.08 K/uL [facility] Neutrophils (Bld) [#/Vol] 3.81 10*3/uL 1.64 - 7.28 K/uL [facility] Nucleated RBC/100 WBC (Bld) [Ratio] 0.0 % [facility] Platelets Estimate (Bld) [#/Vol] Automated platelet count confirmed by manual slide review [facility] RBC morphology finding Nom (Bld) RBC INDICES CONFIRMED WITH MANUAL SLIDE REVIEW [facility] Segmented neutrophils/100 WBC (Bld) 53.0 % [facility] No Panel Informationon 03-[address] [facility] MRI ABDOMEN WITH AND WITHOUT CONTRASTon 02-27-2024 MRI ABDOMEN WITH AND WITHOUT CONTRAST Normal [facility] CBC AND ELECTRONIC DIFFon Basophils (Bld) [#/Vol] K/uL 0.00 - 0.15 K/uL [facility] Basophils/100 WBC (Bld) 0.4 % [facility] Differential cell count method Nom (Bld) Electronic Differential [facility] Eosinophils (Bld) [#/Vol] 0.14 10*3/uL 0.00 - 0.42 K/uL [facility] Eosinophils/100 WBC (Bld) 3.0 % [facility] Erythrocyte distribution width (RBC) [Ratio] 13.1 % 10.8 - 14.9 % [facility] Hematocrit (Bld) [Volume fraction] 37.9 % 34.9 - 44.3 % [facility] Hemoglobin (Bld) [Mass/Vol] 12.9 g/dL 11.4 - 15.2 g/dL [facility] Immature granulocytes (Bld) [#/Vol] K/uL NINF - 0.08 K/uL [facility] Immature granulocytes/100 WBC (Bld) 0.2 % [facility] Lymphocytes (Bld) [#/Vol] 1.84 10*3/uL 1.16 - 3.51 K/uL [facility] Lymphocytes/100 WBC (Bld) 38.9 % [facility] MCH (RBC) [Entitic mass] 29.4 pg 25.9 - 33.[address] [facility] MCHC (RBC) [Mass/Vol] 34.0 g/dL 31.4 - 35.9 g/dL [facility] MCV (RBC) [Entitic vol] 86.3 fL 79.6 - 97.[address] [facility] Monocytes (Bld) [#/Vol] 0.43 10*3/uL 0.22 - 0.87 K/uL [facility] Monocytes/100 WBC (Bld) 9.1 % [facility] Neutrophils (Bld) [#/Vol] 2.29 10*3/uL 1.64 - 7.28 K/uL [facility] Nucleated RBC/100 WBC (Bld) [Ratio] 0.0 % NINF [facility] Platelet mean volume (Bld) [Entitic vol] 9.5 fL 8.5 - 12.[address] [facility] Platelets (Bld) [#/Vol] 192 10*3/uL 150 - 393 K/uL [facility] RBC (Bld) [#/Vol] 4.39 10*6/uL [facility] Segmented neutrophils/100 WBC (Bld) 48.4 % [facility] WBC (Bld) [#/Vol] 4.73 10*3/uL 3.99 - 11.19 K/uL [facility] Abs Baso Auto < Normal 0.00-0.15 [facility] Comment on above: Performed By: #### L [id number] ####[facility] (DEFAULT)[address] [place] [address] Basophils/100 WBC (Bld) 0.4 % Normal [facility] Comment on above: Performed By: #### L [id number] ####[facility] (DEFAULT)[address] [place] [address] DIFF STATUS Electronic Differential Normal [facility] Comment on above: Performed By: #### L [id number] ####[facility] (DEFAULT)[address] [place] [address] Eosinophils (Bld) [#/Vol] 0.14 10*3/uL Normal 0.00-0.42 [facility] Comment on above: Performed By: #### L [id number] ####[facility] (DEFAULT)[address] [place] [address] Eosinophils/100 WBC (Bld) 3.0 % Normal [facility] Comment on above: Performed By: #### L [id number] ####[facility] (DEFAULT)[address] [place] [address] Hematocrit (Bld) [Volume fraction] 37.9 % Normal 34.9-44.3 [facility] Comment on above: Performed By: #### L [id number] ####[facility] (DEFAULT)[address] [place] [address] Hemoglobin (Bld) [Mass/Vol] 12.9 g/dL Normal 11.4-15.2 [facility] Comment on above: Performed By: #### L [id number] ####[facility] (DEFAULT)[address] [place] [address] Immature Grans % 0.2 % Normal [facility] Comment on above: Performed By: #### L [id number] ####[facility] (DEFAULT)[address] [place] [address] Immature Grans Absolute < Normal <=0.08 [facility] Comment on above: Performed By: #### L [id number] ####[facility] (DEFAULT)[address] [place] [address] Lymphocytes (Bld) [#/Vol] 1.84 10*3/uL Normal 1.16-3.51 [facility] Comment on above: Performed By: #### L [id number] ####[facility] (DEFAULT)[address] [place] [address] Lymphocytes/100 WBC (Bld) 38.9 % Normal [facility] Comment on above: Performed By: #### L [id number] ####[facility] (DEFAULT)[address] [place] [address] MCV (RBC) [Entitic vol] 86.3 fL Normal 79.6-97.7 [facility] Comment on above: Performed By: #### L [id number] ####[facility] (DEFAULT)[address] [place] [address] Mean Cell Hgb 29.4 pg Normal 25.9-33.9 [facility] Comment on above: Performed By: #### L [id number] ####[facility] (DEFAULT)[address] [place] [address] Mean Cell Hgb Conc 34.0 g/dL Normal 31.4-35.9 [facility] Comment on above: Performed By: #### L [id number] ####[facility] (DEFAULT)[address] [place] [address] Monocytes (Bld) [#/Vol] 0.43 10*3/uL Normal 0.22-0.87 [facility] Comment on above: Performed By: #### L [id number] ####[facility] (DEFAULT)[address] [place] [address] Monocytes/100 WBC (Bld) 9.1 % Normal [facility] Comment on above: Performed By: #### L [id number] ####[facility] (DEFAULT)[address] [place] [address] Nucleated RBC 0.0 /100 WBC Normal <=0.2 [facility] Comment on above: Performed By: #### L [id number] ####[facility] (DEFAULT)[address] [place] [address] Platelet mean volume (Bld) [Entitic vol] 9.5 fL Normal 8.5-12.2 [facility] Comment on above: Performed By: #### L [id number] ####[facility] (DEFAULT)[address] [place] [address] Platelets (Bld) [#/Vol] 192 10*3/uL Normal 150-393 [facility] Comment on above: Performed By: #### L [id number] ####[facility] (DEFAULT)[address] [place] [address] RBC (Bld) [#/Vol] 4.39 10*6/uL Normal 3.91-5.04 [facility] Comment on above: Performed By: #### L [id number] ####[facility] (DEFAULT)[address] [place] [address] RBC Distribution 13.1 % Normal 10.8-14.[address] [facility] Comment on above: Performed By: #### L [id number] ####[facility] (DEFAULT)[address] [place] [address] Segs + Bands Auto 48.4 % Normal [facility] Comment on above: Performed By: #### L [id number] ####[facility] (DEFAULT)[address] [place] [address] Segs + Bands,Absolute Auto 2.29 K/uL Normal 1.64-7.28 [facility] Comment on above: Performed By: #### L [id number] ####[facility] (DEFAULT)[address] [place] [address] WBC (Bld) [#/Vol] 4.73 10*3/uL Normal 3.99-11.19 [facility] Comment on above: Performed By: #### L [id number] ####[facility] (DEFAULT)[address] [place] [address] CMPN WITHOUT GLUCOSEon 02-22 Albumin [Mass/Vol] 4.1 g/dL 3.5 - 5.0 g/dL [facility] ALP [Catalytic activity/Vol] 74 U/L 32 - 126 U/L [facility] ALT [Catalytic activity/Vol] 21 U/L 9 - 48 U/L [facility] Anion gap [Moles/Vol] 9 mmol/L 7 - 17 mmol/L [facility] AST [Catalytic activity/Vol] 15 U/L 10 - 39 U/L [facility] Bilirubin [Mass/Vol] 0.4 mg/dL NINF - 1.5 mg/dL [facility] Calcium [Mass/Vol] 8.8 mg/dL 8.6 - 10. 5 mg/dL [facility] Chloride [Moles/Vol] 104 mmol/L 98 - 10 8 mmol/L [facility] CO2 [Moles/Vol] 29 mmol/L 21 - 31 mmol/L [facility] Creatinine [Mass/Vol] 0.56 mg/dL 0.50 - 1.20 mg/dL [facility] eGFR, CKD-EPI, Female - PINF [facility] Comment on above: Reported eGFR is bas ed on the CKD-EPI 2020 equation using creatinine, age, and sex. Potassium [Moles/Vol] 3.6 mmol/L 3.5 - 5.0 mmol/L [facility] Protein [Mass/Vol] 6.6 g/dL 6.4 - 8.3 g/dL [facility] Sodium [Moles/Vol] 138 mmol/L 135 - 145 mmol/L [facility] Urea nitrogen [Mass/Vol] 14 mg/dL 7 - 25 mg/dL [facility] Urea nitrogen/Creatinine [Mass ratio] 25 mg/mg [facility] Albumin [Mass/Vol] 4.1 g/dL Normal 3.5-5.0 [facility] Comment on above: Performed By: #### G DALTON, CMPNG ####[facility] (DEFAULT)[address] [place] [address] ALP [Catalytic activity/Vol] 74 U/L Normal 32-126 [facility] Comment on above: Performed By: #### G DALTON, CMPNG ####[facility] (DEFAULT)[address] [place] [address] ALT [Catalytic activity/Vol] 21 U/L Normal 9-48 [facility] Comment on above: Performed By: #### G DALTON, CMPNG ####[facility] (DEFAULT)[address] [place] [address] Anion gap [Moles/Vol] 9 mmol/L Normal 7-17 [facility] Comment on above: Performed By: #### G DALTON, CMPNG ####[facility] (DEFAULT)[address] [place] [address] AST [Catalytic activity/Vol] 15 U/L Normal 10-39 [facility] Comment on above: Performed By: #### G DALTON, CMPNG ####[facility] (DEFAULT)[address] [place] [address] Bilirubin [Mass/Vol] 0.4 mg/dL Normal <1.5 [facility] Comment on above: Performed By: #### G DALTON, CMPNG ####[facility] (DEFAULT)[address] [place] [address] Calcium [Mass/Vol] 8.8 mg/dL Normal 8.6-10.5 [facility] Comment on above: Performed By: #### G DALTON, CMPNG ####[facility] (DEFAULT)[address] [place] [address] Chloride [Moles/Vol] 104 mmol/L Normal 98-108 [facility] Comment on above: Performed By: #### G DALTON, CMPNG ####[facility] (DEFAULT)[address] [place] [address] CO2 [Moles/Vol] 29 mmol/L Normal 21-31 [facility] Comment on above: Performed By: #### G DALTON, CMPNG ####[facility] (DEFAULT)[address] [place] [address] Creatinine [Mass/Vol] 0.56 mg/dL Normal 0.50-1.20 [facility] Comment on above: Performed By: #### G DALTON, CMPNG ####[facility] (DEFAULT)[address] [place] [address] eGFR, CKD-EPI, Female > Normal >=60 [facility] Comment on above: Result Comment: Repo rted eGFR is based on the CKD-EPI 2020 equation using creatinine, age, and sex. Performed By: #### G DALTON, CMPNG ####[facility] (DEFAULT)[address] [place] [address] Potassium [Moles/Vol] 3.6 mmol/L Normal 3.5-5.0 [facility] Comment on above: Performed By: #### G DALTON, CMPNG ####[facility] (DEFAULT)[address] [place] [address] Protein [Mass/Vol] 6.6 g/dL Normal 6.4-8.3 [facility] Comment on above: Performed By: #### G DALTON, CMPNG ####[facility] (DEFAULT)[address] [place] [address] Sodium [Moles/Vol] 138 mmol/L Normal 135-145 [facility] Comment on above: Performed By: #### G DALTON, CMPNG ####[facility] (DEFAULT)[address] [place] [address] Urea nitrogen [Mass/Vol] 14 mg/dL Normal 7-25 [facility] Comment on above: Performed By: #### G DALTON, CMPNG ####[facility] (DEFAULT)[address] [place] [address] Urea nitrogen/Creatinine [Mass ratio] 25 mg/mg Normal [facility] Comment on above: Performed By: #### G DALTON, CMPNG ####[facility] (DEFAULT)[address] [place] [address] GLUCOSEon 02-23-2024 Glucose [Mass/Vol] 89 mg/dL 70 - 99 mg/dL [facility] Interpretation and review of laboratory results Normal [facility] Glucose [Mass/Vol] 89 mg/dL Normal 70-99 [facility] Comment on above: Order Comment: If [place] is diabetic, on steroids, on olanzapine, or on a checkpoint inhibitor (atezolizumab, pembrolizumab, nivolumab, etc.).For screening of diabetes Z13.1 Performed By: #### G DAVE HOFFMAN ####[facility] (DEFAULT)[address] [place] [address] No Panel Informationon 02-[address] [facility] MR Breast - bilateral WO and W contrast IVOrdered By: Steven Rosa on 02-22-2024 Interpretation and review of laboratory results Abnormal [facility] Work Phone: [facility] Work Phone: MR Breast - bilateral WO and W contrast Jessi 02-22-2024 IMPRESSION: 1. Dominant right breast mass, corresponding to biopsy-proven invasive ductal carcinoma. No evidence of additional suspicious breast masses or enhancement. 2. Large right axillary lymph node, corresponding to biopsy-proven metastatic lymph node. There are additional right axillary lymph nodes, which at least the level 1 right axillary lymph node is borderline enlarged. 3. Soft tissue lesion along the internal aspect of the right fourth and fifth rib costochondral junctions, encasing the right internal mammary vessels and abuts the right anterior pleura, favored to represent metastatic disease likely advanced internal mammary lymphadenopathy. Additional enlarged right internal mammary lymph node, concerning for metastatic disease. 4. Increased number and prominence of prevascular lymph nodes, nonspecific. Recommend continued attention on follow-up imaging 5. Hepatic lesion as seen on previous CT, as stated previously abnormal MR would be of benefit for complete characterization BI-RADS: 6: Known biopsy proven malignancy Recommendation: Surgical excision when clinically appropriate. Recommendation Laterality: Right I personally viewed and interpreted these images and I have reviewed and approved this report. OLOGY EXAM: MRI BREAST JOSÉ ATERAL WITH AND WITHOUT CONTRAST, 02/21/2024 16:24 PM CLINICAL INDICATIONS AND HISTORY: Staging scan and franci evaluation due to cT2N1 right breast cancer C50.811:Malignant neoplasm of overlapping sites of right breast in female, estrogen receptor positive Z17.0:Malignant neoplasm of overlapping sites of right breast in female, estrogen receptor positive Staging scan and franci evaluation due to cT2N1 right breast cancer; 58-year-old female with biopsy-proven right breast invasive ductal carcinoma with biopsy-proven right axillary metastatic lymph node. Breast MRI is requested for staging and franci evaluation. COMPARISON: Mammogram January 12, 2024, February 05, 2024, CT chest February 13, 2024. TECHNIQUE: Axial BLADE (STIR), axial noncontrast T1- weighted, axial dynamic pre- and postcontrast fat-suppressed T1-weighted, delayed postcontrast high-resolution sagittal fat-suppressed T1-weighted images were obtained. Serial subtraction images were generated during post-processing. The images were analyzed on the [employer] CAD software package on an independent workstation. FINDINGS: Amount of fibroglandular tissue: scattered fibroglandular tissue. Background parenchymal enhancement: minimal symmetric. Enhancing irregular mass with spiculated margins in the inner lower quadrant of the right breast at middle depth containing a focus of susceptibility artifact, corresponding to known malignancy. This measures 3.3 x 3.0 x 2.4 cm (series 11 image 2 2, series 6 image 76), in the CC, AP, TV dimensions respectively. There is no dominant mass, architectural distortion or area of suspicious enhancement of the left breast. Axilla: Enlarged right axillary lymph node with abnormal morphology containing foci of susceptibility artifact, corresponding to the metastatic right axillary lymph node containing biopsy markers. This measures 1.7 x 1.6 x 2.4 cm (series 6 image 197, series 11 image 242) the TV, AP, CC dimensions respectively. This node is surrounded by a few other smaller nodes. There is an additional enlarged right level 1 axillary lymph node measuring 1.6 x 1.0 x 1.7 cm (series 6 image 193, series 11 image 234). Internal Mammary Chain: Enlarged right internal mammary lymph node measuring 0.9 x 0.8 x 0.6 cm (series 11 image 162, series 6 image 113) in the CC, TV, AP dimensions respectively. Extramammary soft tissues: Enhancing soft tissue lesion along the internal aspect between the right fourth and fifth ribs at the costochondral junction, measuring 2.5 x 1.4 x 2.0 cm (series 6 image 98, series 11 image 173) in the TV, AP, CC dimensions respectively. This encases the right internal mammary vessels and abuts the anterior right pleura. This has the appearance of a possible metastatic internal mammary node. There are few prevascular lymph nodes which appear more prominent compared to the CT chest on February 13, 2024, with a physician representative lymph node measuring 1.1 x 0.7 cm (series 3 image 30). Left chest port is present. Redemonstration of a peripheral nodular enhancing lesion in segment 3 of the liver. Redemonstration of multiple right thyroid nodules. RADIOLOGY MRI BREAST BILATERAL WITH AN D WITHOUT CONTRASTon 02-22-2024 MRI BREAST BILATERAL WITH AND WITHOUT CONTRAST Abnormal [facility] GENERAL PROCEDUREon 02-21-20 Diane South DO - 02/21/2024 10:00 AM EDT History and Physical Update: The H&P completed on 02/15/24 was reviewed and patient was assessed. No changes were noted. Diane South DO, 02/21/2024, 9:55 AM. Procedures [facility] Radiology Study observation (narrative) [facility] MR Breast - bilateral WO and W contrast Jessi 02-21-2024 Radiology Study observation (narrative) [facility] No Panel Informationon 02-[address] [facility] US CLIP PLACEMENT FOR MAMMOG RAPHYon 02-21-2024 US CLIP PLACEMENT FOR MAMMOGRAPHY Normal [facility] IMPRESSION: Technically successful ultrasound-guided clip placement of the breast. Diane South DO was in the room and participated during all tomlin portions of this procedure. [facility] Facility: I personally viewed and interpreted these images and I have reviewed and approved this report. OLOGY Diane South DO - 02/21/2024 EXAM: US CLIP PLACEMENT FOR MAMMOGRAPHY, 02/21/2024 10:07 AM PRE-PROCEDURE DIAGNOSIS: Biopsy-proven metastatic right-sided IDC to the right axilla. This is performed to have a hydromark clip in the axilla POST-PROCEDURE DIAGNOSIS: Biopsy-proven metastatic right-sided IDC to the right axilla PERFORMING PHYSICIAN: Diane South DO TAPPER HELPER: Alanna Chilel M.D. COMPARISON: February 05, 2024 FINDINGS: Consent: Following a thorough discussion of the risks, benefits and alternatives of the procedure written informed consent was obtained. Time out was performed. Position: The patient was placed in a supine position on the US table and a preliminary scan was obtained. The abnormality again identified in the right axilla. Preparation: The patient's skin was cleansed, and the skin and subcutaneous tissues anesthetized with 1% lidocaine solution. Procedure: The hydromark dragonfly was positioned into the site. The clip introducer was removed and handheld pressure was applied. The estimated blood loss is none. The patient tolerated the procedure well without evidence of immediate complications. IMPRESSION IMPRESSION: Technically successful ultrasound-guided clip placement of the breast. Diane South DO was in the room and participated during all tomlin portions of this procedure. [facility] Facility: I personally viewed and interpreted these images and I have reviewed and approved this report. [facility] Radiology Study observation (narrative) [facility] CONTINUOUS CARDIAC MONITORIN G STRIPOrdered By: Unassigned Pacs on 02-16-[address] [facility] Work Phone: Portable XR Chest Viewson IMPRESSION: No evidence of pneumothorax.. Properly positioned left chest port. I personally viewed and interpreted these images and I have reviewed and approved this report. OLOGY EXAM: XR CHEST 1 VIE W PORTABLE, 02/16/2024 10:29 AM COMPARISON: No prior studies available for comparison. CLINICAL INDICATIONS: rule out pneumothorax, concern port placement RELEVANT CLINICAL HISTORY: FINDINGS: (Adequate technique) Implanted Devices: Left port catheter with tip terminating in right atrium. Thorax: Lungs are clear. Heart size normal. No pneumothorax. No pleural effusion. RADIOLOGY Valery Barnes MD - 02/16/2024 EXAM: XR CHEST 1 VIEW PORTABLE, 02/16/2024 10:29 AM COMPARISON: No prior studies available for comparison. CLINICAL INDICATIONS: rule out pneumothorax, concern port placement RELEVANT CLINICAL HISTORY: FINDINGS: (Adequate technique) Implanted Devices: Left port catheter with tip terminating in right atrium. Thorax: Lungs are clear. Heart size normal. No pneumothorax. No pleural effusion. IMPRESSION IMPRESSION: No evidence of pneumothorax.. Properly positioned left chest port. I personally viewed and interpreted these images and I have reviewed and approved this report. [facility] Radiology Study observation (narrative) [facility] Portable XR Chest ViewsOrder ed By: Valery Barnes on 02-16-[address] [facility] Work Phone: US Unspecified body regionon 02-16-[address] [facility] Radiology Study observation (narrative) [facility] XR CHEST 1 VIEW PORTABLEon 0 02-16-2024 XR CHEST 1 VIEW PORTABLE Normal [facility] Cardiac echo study Procedure Ordered By: Bruno Turpin on 02-15-2024 Ao peak ajay 1.13 m/s [facility] Work Phone: Ao VTI 25.[address] [facility] Work Phone: AV LVOT peak gradient [address] [facility] Work Phone: AV mean gradient 3 [facility]: AV peak gradient 5 mmHG [facility] Work Phone: AV valve area 2.[address] [facility] Work Phone: AV Velocity Ratio 0.65 [facility] [place] Work Phone: ANIKA (continuity Vmax) 2.45 [facility]: ANIKA (continuity VTI) 2.35 cm2 [facility] Work Phone: ANIKA index (continuity Vmax) 1.21 m/s [facility] Work Phone: ANIKA index (continuity VTI) 1.16 cm2/m2 [facility] Work Phone: Avg e' pk ajay 0.07 m/s [facility] Work Phone: Avg E/e' ratio 7.76 [facility] Work Phone: Body surface area Derived from formula 2.03 m2 [facility] Work Phone: BP EF 64 % [facility] Work Phone: DI (Vmax) 0.[address] [facility] Work Phone: DI (VTI) 0.62 m/[address] [facility] Work Phone: E wave decelartion time 267.[address] [facility] Work Phone: e' lateral pk ajay 0.0839 m/s [facility] [place] Work Phone: e' lateral pk ajay 0.08 m/s [facility] Work Phone: e' septal pk ajay 0.0523 m/s [facility] Work Phone: e' septal pk ajay 0.05 m/s [facility] Work Phone: E/A ratio 0.[address] [facility] Work Phone: E/e' lateral [facility] 5.96 [facility] Work Phone: E/e' septal ratio 9.56 [facility] Work Phone: EF SP 2CH 61 [facility] Work Phone: EF SP 4CH 66 [facility] Work Phone: EST RAP 3.00 mmHg [facility] Work Phone: FS 45 % Abnormal 28 - 44 % [facility] Work Phone: Interpretation and review of laboratory results Abnormal [facility] Work Phone: IVC ostium 0.99 cm [facility] Work Phone: IVS 1.18 cm [facility] Work Phone: LA AREA 2CH 16.78 cm2 [facility] Work Phone: LA area 4CH 22.[address] [facility] Work Phone: LA ESV BP (MOD) [facility] LA ESV BP (MOD) index 25 mL/m2 [facility] Work Phone: LA ESV SP 2CH (MOD) 39 mL [facility] Work Phone: LA ESV SP 4CH (MOD) 69 mL [facility] Work Phone: LA size 3.95 cm [facility] Work Phone: LEFT ATRIAL DIAMETER INDEX 1.95 cm/m2 [facility] Work Phone: LV EDV BP 92 [facility] Work Phone: LV EDV SP 2CH 83 [facility] Work Phone: [phone] LV EDV SP 4CH 98 mL [facility] Work Phone: LV ESV BP 33 mL [facility] Work Phone: LV ESV SP 2CH 32 mL [facility] Work Phone: LV ESV SP 4CH 33 mL [facility] Work Phone: LV mass 216.67 g [facility] Work Phone: LV Mass Index 106.7 g/m2 [facility] Work Phone: LV RWT 0.[address] [facility] Work Phone: LV stroke volume BP (ml) 59 [facility] Work Phone: LV stroke volume index BP 29.06 mL/m2 [facility] Work Phone: LVIDD 4.[address] [facility] Work Phone: LVIDS 2.[address] [facility] Work Phone: LVOT area 3.[address] [facility] Work Phone: LVOT diameter 2.[address] [facility] Work Phone: LVOT peak ajay 0.73 m/s [facility] Work Phone: LVOT peak VTI 15.[address] [facility] Work Phone: LVOT stroke volume 59 cm3 [facility] Work Phone: LVOT stroke volume index 29.18 ml/m2 [facility] Work Phone: MV pk A ajay 0.71 m/s [facility] Work Phone: MV pk E ajay 0.50 m/s [facility] Work Phone: OSU AV VTI RATIO PRE STRESS 0.[address] [facility] Work Phone: OSU ECHO LV BIPLANE SYSTOLIC VOLUME INDEX 16.26 mL/m2 [facility] Work Phone: OSU ECHO LV BP DIASTOLIC VOLUME INDEX 45.32 mL/m2 [facility] Work Phone: PV peak gradient 2 mmHg [facility] Work Phone: PV PK AJAY 0.72 m/s [facility] Work Phone: PW 1.[address] [facility] Work Phone: RA vol index 4CH (MOD) 20.69 mL/m2 [facility] Work Phone: Right atrium volume 4 chamber method of disks [address] [facility] Work Phone: RV Area diastolic 19.37 cm2 [facility] Work Phone: RV Area systolic 12.01 cm2 [facility] Work Phone: RV basal diam 3.[address] [facility] Work Phone: RV Fractional area change 38.0 % [facility] Work Phone: RV long diam 6.49 [facility] Work [facility]: RV mid diam 2.49 cm [facility] Work Phone: RV S' 10.56 cm/s [facility] Work Phone: RVOT peak gradient 1 mmHg [facility] Work Phone: RVOT peak ajay 0.52 m/s [facility] Work Phone: RVOT peak VTI 11.[address] [facility] Work Phone: Stroke Volume 59 cm/mL [facility] Work Phone: Stroke volume index 29 [facility] Work Phone: TAPSE 1.[address] [facility] Work Phone: [facility] Work Phone: Cardiac echo study Procedure on 02-15-2024 No prior study for comparison. Left VentricleChamber size is normal. Increased wall thickness. Concentric hypertrophy. Normal global systolic function. Regional wall motion is normal. Ejection fraction is normal (60 - 65%). Diastolic function could not be determined. Right VentricleChamber size is normal. Systolic function is normal. No hemodynamically significant valvular disease. Pulmonary artery systolic pressure (PASP) is unable to be estimated. Poor tricuspid regurgitation jet may not accurately reflect right ventricular systolic pressure. No pericardial effusion. Left Ventricle Chamber size is normal. Increased wall thickness. Concentric hypertrophy. Normal global systolic function. Regional wall motion is normal. Ejection fraction is normal (60 - 65%). Diastolic function could not be determined. Right Ventricle Chamber size is normal. Systolic function is normal. Left Atrium Chamber size is normal. Right Atrium Chamber size is normal. IVC/SVC The inferior vena cava structure has a diameter <21 mm and decreases >50% during inspiration. Mitral Valve Normal appearing leaflets. Leaflet mobility is normal. No regurgitation. No valve stenosis. Tricuspid Valve Normal leaflets. Leaflet mobility is normal. Trace regurgitation. No stenosis. Pulmonary artery systolic pressure (PASP) is unable to be estimated. Poor tricuspid regurgitation jet may not accurately reflect right ventricular systolic pressure. Aortic Valve Trileaflet valve. Leaflet mobility is normal. No regurgitation. No stenosis. Mean gradient: 3 mmHg. Valve area continuity VTI: 2.35 cm2. The valve Vmax is 1.13 m/s. Pulmonic Valve Pulmonic valve not well visualized. No regurgitation. No stenosis. Pericardium Appears normal. No pericardial effusion. Septum The atrial septum is normal. Aorta Aorta not assessed. Study Details A complete echocardiography study (including color flow Doppler, spectral Doppler and M-mode) was performed. Imaging system used: Siemens. Indications Indications for study: chemotherapy (pre/post). Wall Scoring Score Index: 1.00 The left ventricular wall motion is normal. [facility] Radiology Study observation (narrative) [facility] CT ABDOMEN/PELVIS WITH CONTR Christiano 02-14-2024 CT ABDOMEN/PELVIS WITH CONTRAST Normal [facility] CT CHEST WITH CONTRASTon CT CHEST WITH CONTRAST Normal [facility] NM Whole body Bone Viewson 0 02-13-2024 IMPRESSION: No scintigraphic evidence of metastatic osseous disease. I personally viewed and interpreted these images and I have reviewed and approved this report. OLOGY EXAM: NUC BONE SCAN WHOLE BODY, 02/13/2024 14:10 PM CLINICAL INDICATIONS: Breast cancer, staging COMPARISON: CT chest with contrast on 02/13/24. CT abd/pelvis with contrast on 02/13/24. TECHNIQUE: 20 mCi Tc 99m MDP was administered IV per protocol. Whole body scintigrams were obtained in the anterior and posterior projection approximately 3 hours post injection of radiopharmaceutical. FINDINGS: Diffuse increased radiotracer uptake in the calvarium suggestive of hyperostosis. Heterogenous radiotracer uptake in the bilateral shoulder joints, lower lumbar spine, and knees likely degenerative arthropathy. Heterogenously increased radiotracer uptake in the tarsal bones, right second MTP joint and bilateral first MTP joints, likely degenerative in nature. There are no bony abnormalities to suggest bony metastases. Soft tissue tracer distribution is unremarkable. Physiologic tracer excretion is seen in the kidney and bladder. RADIOLOGY Janice Soto MD - 02/13/2024 EXAM: NUC BONE SCAN WHOLE BODY, 02/13/2024 14:10 PM CLINICAL INDICATIONS: Breast cancer, staging COMPARISON: CT chest with contrast on 02/13/24. CT abd/pelvis with contrast on 02/13/24. TECHNIQUE: 20 mCi Tc 99m MDP was administered IV per protocol. Whole body scintigrams were obtained in the anterior and posterior projection approximately 3 hours post injection of radiopharmaceutical. FINDINGS: Diffuse increased radiotracer uptake in the calvarium suggestive of hyperostosis. Heterogenous radiotracer uptake in the bilateral shoulder joints, lower lumbar spine, and knees likely degenerative arthropathy. Heterogenously increased radiotracer uptake in the tarsal bones, right second MTP joint and bilateral first MTP joints, likely degenerative in nature. There are no bony abnormalities to suggest bony metastases. Soft tissue tracer distribution is unremarkable. Physiologic tracer excretion is seen in the kidney and bladder. IMPRESSION IMPRESSION: No scintigraphic evidence of metastatic osseous disease. I personally viewed and interpreted these images and I have reviewed and approved this report. [facility] Radiology Study observation (narrative) [facility] NM Whole body Bone ViewsOrde red By: Janice Soto on 02-13-[address] [facility] Work Phone: NUC BONE SCAN WHOLE BODYon 0 02-13-2024 NUC BONE SCAN WHOLE BODY Normal [facility] TCCP - GOLDon 02-13-2024 CANCER CARE PROTOCOL Done Normal [facility] Comment on above: Performed By: #### L ABTCCPGOLD ####[facility] (DEFAULT)[address] [place] [id number] Performed By: #### L ABTCCPLAV ####[facility] (DEFAULT)[address] [place] [id number] Basic Metabolic Profile (BMP )on 02-12-2024 BUN/CRE 24.9 RATIO High 04-21 [facility] Comment on above: Performed By: #### L [id number], L500.2500, L506.1000 ####[facility] [address] [place], [address] CA,Total 8.9 mg/dL Normal 8.5-10.1 [facility] Comment on above: Performed By: #### L [id number], L500.2500, L506.1000 ####[facility] [address] [place], [address] Chloride [Moles/Vol] 104 mmol/L Normal 98-107 [facility] Comment on above: Performed By: #### L [id number], L500.2500, L506.1000 ####[facility] [address] [place], [address] CO2 [Moles/Vol] 30.0 mmol/L Normal 21.0-32.0 [facility] Comment on above: Performed By: #### L [id number], L500.2500, L506.1000 ####[facility] [address] [place], [address] Creatinine [Mass/Vol] 0.56 mg/dL Normal 0.55-1.02 [facility] Comment on above: Result Comment: The validity of the calculated GFR GFRAA in patients over 70 years has not been determined. Clinical correlation is essential. Performed By: #### L 501.9520, L500.2500, L506.1000 ####[facility] [address] [place], [address] EST GFR - AA 141 mL/min Normal >60 [facility] Comment on above: Result Comment: Afri can Hungarian GFR Calc Performed By: #### L [id number], L500.2500, L506.1000 ####[facility] [address] [place], [address] GAP 4 Low 5-15 [facility] Comment on above: Performed By: #### L [id number], L500.2500, L506.1000 ####[facility] [address] [place], [address] GFR/1.73 sq M.predicted among non-blacks MDRD (S/P/Bld) [Vol rate/Area] 117 mL/min/{1.73_m2} Normal >60 [facility] Comment on above: Result Comment: Non- GFR Calc Performed By: #### L 501.9520, L500.2500, L506.1000 ####[facility] [address] [place], [address] Glucose [Mass/Vol] 80 mg/dL Normal 74-106 [facility] Comment on above: Performed By: #### L 501.9520, L500.2500, L506.1000 ####[facility] [address] [place], [address] Potassium [Moles/Vol] 3.7 mmol/L Normal 3.5-5.1 [facility] Comment on above: Performed By: #### L 501.9520, L500.2500, L506.1000 ####[facility] [address] [place], [address] Sodium [Moles/Vol] 138 mmol/L Normal 136-145 [facility] Comment on above: Performed By: #### L 501.9520, L500.2500, L506.1000 ####[facility] [address] [place], [address] Urea nitrogen [Mass/Vol] 14 mg/dL Normal 7-18 [facility] Comment on above: Performed By: #### L 501.9520, L500.2500, L506.1000 ####[facility] [address] [place], [address] Thyroid Stim Hormone (TSH)on 02-12-2024 TSH 1.49 uIU/mL Normal 0.358-3.74 [facility] Comment on above: Performed By: #### L 501.9520, L500.2500, L506.1000 ####[facility] [address] [place], [address] Vitamin D,25 Hydroxyon 02-11 Vitamin D 25-OH 73.0 ng/mL Normal [facility] Comment on above: Result Comment: Jennifer min D 25(OH) Status Range Deficiency <20 ng/mL (50nmol/L) Insufficiency 20 - 30 ng/mL (50 - 75 nmol/L) Sufficiency 30 - 100 ng/mL (75 - 250 nmol/L) Toxicity >100 ng/mL (>250 nmol/L) Performed By: #### L 501.9520, L500.2500, L506.1000 ####[facility] [address] [place], [address] CBC AND ELECTRONIC DIFFon Abs Baso Auto < Normal 0.00-0.15 [facility] Comment on above: Performed By: #### L [id number] ####[facility] (DEFAULT)[address] [place] [address] Basophils/100 WBC (Bld) 0.4 % Normal [facility] Comment on above: Performed By: #### L [id number] ####[facility] (DEFAULT)[address] [place] [address] DIFF STATUS Electronic Differential Normal [facility] Comment on above: Performed By: #### L [id number] ####[facility] (DEFAULT)[address] [place] [address] Eosinophils (Bld) [#/Vol] 0.07 10*3/uL Normal 0.00-0.42 [facility] Comment on above: Performed By: #### L [id number] ####[facility] (DEFAULT)[address] [place] [address] Eosinophils/100 WBC (Bld) 1.5 % Normal [facility] Comment on above: Performed By: #### L [id number] ####[facility] (DEFAULT)[address] [place] [address] Hematocrit (Bld) [Volume fraction] 40.9 % Normal 34.9-44.3 [facility] Comment on above: Performed By: #### L [id number] ####[facility] (DEFAULT)[address] [place] [address] Hemoglobin (Bld) [Mass/Vol] 13.8 g/dL Normal 11.4-15.2 [facility] Comment on above: Performed By: #### L [id number] ####[facility] (DEFAULT)[address] [place] [address], [place] [address] Immature Grans % 0.0 % Normal [facility] Comment on above: Performed By: #### L [id number] ####[facility] (DEFAULT)[address] [place] [address], [place] [address] Immature Grans Absolute < Normal <=0.08 [facility] Comment on above: Performed By: #### L [id number] ####[facility] (DEFAULT)[address] [place] [address] Lymphocytes (Bld) [#/Vol] 2.02 10*3/uL Normal 1.16-3.51 [facility] Comment on above: Performed By: #### L [id number] ####[facility] (DEFAULT)[address] [place] [address], [place] [address] Lymphocytes/100 WBC (Bld) 42.7 % Normal [facility] Comment on above: Performed By: #### L [id number] ####[facility] (DEFAULT)[address] [place] [address] MCV (RBC) [Entitic vol] 86.7 fL Normal 79.6-97.7 [facility] Comment on above: Performed By: #### L [id number] ####[facility] (DEFAULT)[address] [place] [address] Mean Cell Hgb 29.2 pg Normal 25.9-33.9 [facility] Comment on above: Performed By: #### L [id number] ####[facility] (DEFAULT)[address] [place] [address] Mean Cell Hgb Conc 33.7 g/dL Normal 31.4-35.9 [facility] Comment on above: Performed By: #### L [id number] ####[facility] (DEFAULT)[address] [place] [address] Monocytes (Bld) [#/Vol] 0.36 10*3/uL Normal 0.22-0.87 [facility] Comment on above: Performed By: #### L [id number] ####[facility] (DEFAULT)[address] [place] [address] Monocytes/100 WBC (Bld) 7.6 % Normal [facility] Comment on above: Performed By: #### L [id number] ####[facility] (DEFAULT)[address] [place] [address] Nucleated RBC 0.0 /100 WBC Normal <=0.2 [facility] Comment on above: Performed By: #### L [id number] ####[facility] (DEFAULT)[address] [place] [address] Platelet mean volume (Bld) [Entitic vol] 9.9 fL Normal 8.5-12.2 [facility] Comment on above: Performed By: #### L [id number] ####[facility] (DEFAULT)[address] [place] [address] Platelets (Bld) [#/Vol] 227 10*3/uL Normal 150-393 [facility] Comment on above: Performed By: #### L [id number] ####[facility] (DEFAULT)[address] [place] [address] RBC (Bld) [#/Vol] 4.72 10*6/uL Normal 3.91-5.04 [facility] Comment on above: Performed By: #### L [id number] ####[facility] (DEFAULT)[address] [place] [address] RBC Distribution 13.0 % Normal 10.8-14.[address] [facility] Comment on above: Performed By: #### L [id number] ####[facility] (DEFAULT)[address] [place] [address] Segs + Bands Auto 47.8 % Normal [facility] Comment on above: Performed By: #### L [id number] ####[facility] (DEFAULT)[address] [place] [address] Segs + Bands,Absolute Auto 2.26 K/uL Normal 1.64-7.28 [facility] Comment on above: Performed By: #### L [id number] ####[facility] (DEFAULT)[address] [place] [address], [place] [address] WBC (Bld) [#/Vol] 4.73 10*3/uL Normal 3.99-11.19 [facility] Comment on above: Performed By: #### L [id number] ####[facility] (DEFAULT)[address] [place] [address] COMPREHENSIVE METABOLIC PANE Jaskaran 02-09-2024 Albumin [Mass/Vol] 4.4 g/dL 3.5 - 5.0 g/dL [facility] ALP [Catalytic activity/Vol] 68 U/L 32 - 126 U/L [facility] ALT [Catalytic activity/Vol] 16 U/L 9 - 48 U/L [facility] Anion gap [Moles/Vol] 10 mmol/L 7 - 17 mmol/L [facility] AST [Catalytic activity/Vol] 13 U/L 10 - 39 U/L [facility] Bilirubin [Mass/Vol] 0.5 mg/dL NINF - 1.5 mg/dL [facility] Calcium [Mass/Vol] 9.5 mg/dL 8.6 - 10. 5 mg/dL [facility] Chloride [Moles/Vol] 100 mmol/L 98 - 10 8 mmol/L [facility] CO2 [Moles/Vol] 31 mmol/L 21 - 31 mmol/L [facility] Creatinine [Mass/Vol] 0.60 mg/dL 0.50 - 1.20 mg/dL [facility] eGFR, CKD-EPI, Female - PINF [facility] Comment on above: Reported eGFR is bas ed on the CKD-EPI 2020 equation using creatinine, age, and sex. Glucose [Mass/Vol] 87 mg/dL 70 - 99 mg/dL [facility] Osmolality Calc [Osmolality] [address] [facility] Potassium [Moles/Vol] 3.5 mmol/L 3.5 - 5.0 mmol/L [facility] Protein [Mass/Vol] 7.1 g/dL 6.4 - 8.3 g/dL [facility] Sodium [Moles/Vol] 137 mmol/L 135 - 145 mmol/L [facility] Urea nitrogen [Mass/Vol] 14 mg/dL 7 - 25 mg/dL [facility] Urea nitrogen/Creatinine [Mass ratio] 23 mg/mg [facility] Albumin [Mass/Vol] 4.4 g/dL Normal 3.5-5.0 [facility] Comment on above: Performed By: #### C MPN ####[facility] (DEFAULT)[address] [place] [address] ALP [Catalytic activity/Vol] 68 U/L Normal 32-126 [facility] Comment on above: Performed By: #### C MPN ####[facility] (DEFAULT)[address] [place] [address] ALT [Catalytic activity/Vol] 16 U/L Normal 9-48 [facility] Comment on above: Performed By: #### C MPN ####[facility] (DEFAULT)[address] [place] [address] Anion gap [Moles/Vol] 10 mmol/L Normal 7-17 [facility] Comment on above: Performed By: #### C MPN ####[facility] (DEFAULT)[address] [place] [address] AST [Catalytic activity/Vol] 13 U/L Normal 10-39 [facility] Comment on above: Performed By: #### C MPN ####[facility] (DEFAULT)[address] [place] [address] Bilirubin [Mass/Vol] 0.5 mg/dL Normal <1.5 [facility] Comment on above: Performed By: #### C MPN ####[facility] (DEFAULT)[address] [place] [address] Calcium [Mass/Vol] 9.5 mg/dL Normal 8.6-10.5 [facility] Comment on above: Performed By: #### C MPN ####[facility] (DEFAULT)[address] [place] [address] Chloride [Moles/Vol] 100 mmol/L Normal 98-108 [facility] Comment on above: Performed By: #### C MPN ####[facility] (DEFAULT)[address] [place] [address] CO2 [Moles/Vol] 31 mmol/L Normal 21-31 [facility] Comment on above: Performed By: #### C MPN ####[facility] (DEFAULT)[address] [place] [address] Creatinine [Mass/Vol] 0.60 mg/dL Normal 0.50-1.20 [facility] Comment on above: Performed By: #### C MPN ####[facility] (DEFAULT)[address] [place] [address] eGFR, CKD-EPI, Female > Normal >=60 [facility] Comment on above: Result Comment: Repo rted eGFR is based on the CKD-EPI 2020 equation using creatinine, age, and sex. Performed By: #### C MPN ####[facility] (DEFAULT)[address] [place] [address] Glucose [Mass/Vol] 87 mg/dL Normal 70-99 [facility] Comment on above: Performed By: #### C MPN ####[facility] (DEFAULT)[address] [place] [address] Osmolality [Osmolality] 286 mosm/kg Normal 278-305 [facility] Comment on above: Performed By: #### C MPN ####[facility] (DEFAULT)[address] [place] [address] Potassium [Moles/Vol] 3.5 mmol/L Normal 3.5-5.0 [facility] Comment on above: Performed By: #### C MPN ####[facility] (DEFAULT)[address] [place] [address] Protein [Mass/Vol] 7.1 g/dL Normal 6.4-8.3 [facility] Comment on above: Performed By: #### C MPN ####[facility] (DEFAULT)[address] [place] [address] Sodium [Moles/Vol] 137 mmol/L Normal 135-145 [facility] Comment on above: Performed By: #### C MPN ####[facility] (DEFAULT)[address] [place] [address] Urea nitrogen [Mass/Vol] 14 mg/dL Normal 7-25 [facility] Comment on above: Performed By: #### C MPN ####[facility] (DEFAULT)[address] [place] [address] Urea nitrogen/Creatinine [Mass ratio] 23 mg/mg Normal [facility] Comment on above: Performed By: #### C MPN ####[facility] (DEFAULT)[address] [place] [address] MAMMO DIAGNOSTIC RIGHTon MAMMO DIAGNOSTIC RIGHT Abnormal [facility] MG Breast - right Diagnostic on 02-05-2024 Radiology Study observation (narrative) [facility] No Panel InformationOrdered By: Nadeem Cormier on 02-05-2024 Interpretation and review of laboratory results Abnormal [facility] Work Phone: [facility] Work Phone: No Panel Informationon 02-04 IMPRESSION:; ;1. Lenka picious right breast masses undergone biopsy demonstrating malignancy at;3:00. Suspicious right axillary lymph node is also undergone biopsy;demonstrating metastatic disease. It is not clear if clips were placed over;the type of clip was placed therefore right diagnostic mammogram is;recommended to document clip placement and type. Additionally, there is;suggestion of possible 58 year old female with biopsy-proven malignancy 3:00 right breast. Second opinion requested mammogram for confirmation of clip as well as possible microcalcifications posterior to the mass. Ultrasound also ordered for tumor sizing. MAMMOGRAM COMPARISON: February 05, 2024, January 19, 2024 MAMMOGRAM TECHNIQUE: Digital MLO and CC views of the right breast were obtained. Computer aided detection was utilized. Magnification cc and ML views were also obtained FINDINGS: Breast Density: The breast has scattered areas of fibroglandular density. There is an irregular 2.3 cm mass in the 3:00 position of the right breast with a coil clip in appropriate position. There are a few scattered microcalcifications identified in the right breast however there is no group of suspicious microcalcifications posterior to the patient's mass. There are no suspicious masses, calcifications, or architectural distortions. ULTRASOUND TECHNIQUE: Multiple real-time overton-scale images of the right breast in the 3 o'clock axis are performed. Color Doppler was used to assess vascular flow. ULTRASOUND FINDINGS: In the 3:00 position the right breast, 3.4 cm from the nipple is an irregular hypoechoic 2.4 x 1.9 x 2.8 cm mass with internal vascularity and shadowing. There is a clip in the center of the mass. This is consistent with the patient's history of biopsy-proven malignancy IMPRESSION: 1. Coil clip in appropriate position at the 3:00 right breast in the center of the patient's known malignancy. 2. No suspicious microcalcifications identified posterior to the patient's malignancy. BI-RADS: 6: Known biopsy proven malignancy Recommendation: Surgical excision when clinically appropriate. Recommendation Laterality: Right OLOGY EXAM: MAMMO DIAGNOST IC RIGHT, US BREAST LIMITED UNILATERAL RIGHT, 02/05/2024 11:32 AM (accession [id number]), 02/05/2024 11:50 AM (accession [id number]) CLINICAL INDICATIONS AND HISTORY: see comment C50.059:Malignant neoplasm of female breast, unspecified estrogen receptor status, unspecified laterality, unspecified site of breast RADIOLOGY Nadeem Cormier MD - 02/05/2024 EXAM: MAMMO DIAGNOSTIC RIGHT, US BREAST LIMITED UNILATERAL RIGHT, 02/05/2024 11:32 AM (accession [id number]), 02/05/2024 11:50 AM (accession [id number]) CLINICAL INDICATIONS AND HISTORY: see comment C50.289:Malignant neoplasm of female breast, unspecified estrogen receptor status, unspecified laterality, unspecified site of breast IMPRESSION IMPRESSION:; ;1. Suspicious right breast masses undergone biopsy demonstrating malignancy at;3:00. Suspicious right axillary lymph node is also undergone biopsy;demonstrating metastatic disease. It is not clear if clips were placed over;the type of clip was placed therefore right diagnostic mammogram is;recommended to document clip placement and type. Additionally, there is;suggestion of possible 58 year old female with biopsy-proven malignancy 3:00 right breast. Second opinion requested mammogram for confirmation of clip as well as possible microcalcifications posterior to the mass. Ultrasound also ordered for tumor sizing. MAMMOGRAM COMPARISON: February 05, 2024, January 19, 2024 MAMMOGRAM TECHNIQUE: Digital MLO and CC views of the right breast were obtained. Computer aided detection was utilized. Magnification cc and ML views were also obtained FINDINGS: Breast Density: The breast has scattered areas of fibroglandular density. There is an irregular 2.3 cm mass in the 3:00 position of the right breast with a coil clip in appropriate position. There are a few scattered microcalcifications identified in the right breast however there is no group of suspicious microcalcifications posterior to the patient's mass. There are no suspicious masses, calcifications, or architectural distortions. ULTRASOUND TECHNIQUE: Multiple real-time overton-scale images of the right breast in the 3 o'clock axis are performed. Color Doppler was used to assess vascular flow. ULTRASOUND FINDINGS: In the 3:00 position the right breast, 3.4 cm from the nipple is an irregular hypoechoic 2.4 x 1.9 x 2.8 cm mass with internal vascularity and shadowing. There is a clip in the center of the mass. This is consistent with the patient's history of biopsy-proven malignancy IMPRESSION: 1. Coil clip in appropriate position at the 3:00 right breast in the center of the patient's known malignancy. 2. No suspicious microcalcifications identified posterior to the patient's malignancy. BI-RADS: 6: Known biopsy proven malignancy Recommendation: Surgical excision when clinically appropriate. Recommendation Laterality: Right [facility] US AXILLA FOR MAMMOGRAPHY RI Anabel 02-05-2024 US AXILLA FOR MAMMOGRAPHY RIGHT Abnormal [facility] US Axilla - rightOrdered By: Nadeem Cormier on 02-05-2024 Interpretation and review of laboratory results Abnormal [facility] Work Phone: [facility] Work Phone: US Axilla - righton 02-05-20 IMPRESSION: Abnormal right axillary lymph node which correlates with the biopsy-proven metastatic lymphadenopathy. According to outside hospital report, the biopsy marker is a ribbon clip which is not well evaluated on ultrasound. If neoadjuvant therapy is desired, consider placement of a Hydromark biopsy marker for localization. BI-RADS: 6: Known biopsy proven malignancy Recommendation: Surgical excision when clinically appropriate. Recommendation Laterality: Right I personally viewed and interpreted these images and I have reviewed and approved this report. OLOGY EXAM: US AXILLA FOR MAMMOGRAPHY RIGHT, 02/05/2024 13:25 PM CLINICAL INDICATIONS AND HISTORY: see comment C50.919:Malignant neoplasm of female breast, unspecified estrogen receptor status, unspecified laterality, unspecified site of breast Right axillary US to confirm if biopsy clip in positive lymph node for treatment planning; Biopsy-proven right breast IDC metastatic to the right axilla (biopsies 01/19/2024), evaluating for clip placement within the right axillary lymph node. COMPARISON: Right axillary lymph node biopsy dated 01/19/2024. Mammogram dated 01/12/2024. Same-day mammogram and ultrasound. TECHNIQUE: Multiple real-time overton-scale images of the right axilla were submitted. Color Doppler is used to assess vascular flow. FINDINGS: In the inferior right axilla, again seen is an enlarged right axillary lymph node which measures 2.3 x 1.3 x 1.6 cm. Within this, there is a hyperechoic biopsy tract and probable echogenic biopsy marker. RADIOLOGY Nadeem Cormier MD - 02/05/2024 EXAM: US AXILLA FOR MAMMOGRAPHY RIGHT, 02/05/2024 13:25 PM CLINICAL INDICATIONS AND HISTORY: see comment C50.919:Malignant neoplasm of female breast, unspecified estrogen receptor status, unspecified laterality, unspecified site of breast Right axillary US to confirm if biopsy clip in positive lymph node for treatment planning; Biopsy-proven right breast IDC metastatic to the right axilla (biopsies 01/19/2024), evaluating for clip placement within the right axillary lymph node. COMPARISON: Right axillary lymph node biopsy dated 01/19/2024. Mammogram dated 01/12/2024. Same-day mammogram and ultrasound. TECHNIQUE: Multiple real-time overton-scale images of the right axilla were submitted. Color Doppler is used to assess vascular flow. FINDINGS: In the inferior right axilla, again seen is an enlarged right axillary lymph node which measures 2.3 x 1.3 x 1.6 cm. Within this, there is a hyperechoic biopsy tract and probable echogenic biopsy marker. IMPRESSION IMPRESSION: Abnormal right axillary lymph node which correlates with the biopsy-proven metastatic lymphadenopathy. According to outside hospital report, the biopsy marker is a ribbon clip which is not well evaluated on ultrasound. If neoadjuvant therapy is desired, consider placement of a Hydromark biopsy marker for localization. BI-RADS: 6: Known biopsy proven malignancy Recommendation: Surgical excision when clinically appropriate. Recommendation Laterality: Right I personally viewed and interpreted these images and I have reviewed and approved this report. [facility] Radiology Study observation (narrative) [facility] US BREAST LIMITED UNILATERAL RIGHTon 02-05-2024 US BREAST LIMITED UNILATERAL RIGHT Abnormal [facility] US Breast - right limitedon 02-05-2024 Radiology Study observation (narrative) [facility] CNPMargaret 02-02-2024 CNPN Telephone (BRCRMN) [address] ([id number]) 1965 F Date Time Provider Department 02/02/24 [facility] COOPER [facility] During your visit today, we recorded the following information about you: Kari Moody RN 02/05/2024 9:50 AM Signed February 02, 2024 Clinical Information: new outside cancer from [facility] right lymph node and right breast 3 o'clock, 2.0 cm from the nipple. Screening mammogram Scanned Documents Date 01/12/24 Historic screening mammograms for comparison- Scanned Documents Date Diagnostic mammogram- scanned documents Date 01/12/24 Ultrasound- Reports are in Care Everywhere Date 01/19/24 Biopsy Ultrasound or Stereotactic: Scanned Documents Date 01/19/24 Pathology: Scanned Documents Date 01/19/24 MRI: No previous images completed Date n/a Allergies As of Date: 02/02/2024 Noted Allergy Reaction METRONIDAZOLE 01/29/2024 14 - Other: See Comments Date Reviewed: Never Reviewed Primary Visit Diagnosis:History of right breast cancer [Z85.3] Order(s):CONSULT FOR RAD 2ND READ [1360000] Order #: [id number]: 1 Problem List As Of Date 02/02/2024 Noted Resolved Knee joint effusion [M25.469] 06/02/2016 Internal derangement of knee [M23.90] 06/02/2016 Contusion of knee [S80.00XA] 06/02/2016 Closed fracture of upper end of tibia [S82.109A]06/24/2016 Sprain of anterior cruciate ligament of right k*06/24/2016 Encounter Status:Closed by KARI MOODY on 02/05/24 Normal [facility] BREAST IMAGING SECOND OPINIO N READINGon 02-01-2024 BREAST IMAGING SECOND OPINION READING Normal [facility] MG Breast Viewson 02-01-2024 IMPRESSION: 1. Suspicious right breast masses undergone biopsy demonstrating malignancy at 3:00. Suspicious right axillary lymph node is also undergone biopsy demonstrating metastatic disease. It is not clear if clips were placed over the type of clip was placed therefore right diagnostic mammogram is recommended to document clip placement and type. Additionally, there is suggestion of possible associated calcifications extending outside the mass although due to technical factors this could represent artifact. This can also be reassessed on diagnostic mammogram with magnification views performed if required. Additionally, repeat ultrasound of the index mass could be performed for better assessment of true size. 2. Negative left mammogram. OLOGY EXAM: BREAST IMAGING SECOND OPINION READING, 02/01/2024 09:33 AM CLINICAL INDICATIONS: The patient present with a palpable abnormality. A suspicious right breast mass at 3:00 was identified. Suspicious right axillary lymph node was also identified. Both underwent biopsy demonstrating invasive ductal carcinoma in the mass and metastatic carcinoma in the lymph node. Note, the report for the biopsy was not submitted and post procedure mammogram was not performed therefore is unclear if clips were placed. COMPARISON: December 30, 2022, December 10, 2021, October 09, 2020 BILATERAL DIAGNOSTIC MAMMOGRAM WITH TOMOSYNTHESIS JANUARY 12, 2024: The breasts have scattered areas of fibroglandular density. There is a mass in the central medial right breast middle depth. There is also an abnormal appearing right axillary lymph node. There are questionable calcifications extending posterior to the mass, although this may be artifact related to technique. No suspicious masses, suspicious calcifications or areas of distortion identified in the left breast. RIGHT BREAST AND AXILLARY ULTRASOUND JANUARY 19, 2024: Corresponding to the mammographic finding at the 3:00 position there is a irregular hypoechoic mass measuring 1.9 x 2.2 x 1.7 cm. On cine images the mass may be slightly larger than the measurements provided. This is suspicious. Images of the right axilla demonstrate an abnormal right axillary lymph node measuring 2.4 x 1.2 x 1.5 cm with markedly thickened cortex and effaced hilum. This is suspicious Additional normal-appearing lymph node is noted. IMAGES FROM A RIGHT BREAST ULTRASOUND CORE BIOPSY AND RIGHT AXILLARY ULTRASOUND CORE BIOPSY JANUARY 19, 2024: Limited ultrasound images demonstrate core needle sampling of the right breast mass and right axillary lymph node. It is not clear if or what type of clip was replaced and a post procedure mammogram is not submitted. However pathology of invasive ductal carcinoma in the right breast and metastatic carcinoma in the right axilla is concordant. RADIOLOGY Radiology Study observation (narrative) [facility] MG Breast ViewsOrdered By: Sheree Rosa on 02-01-[address] [facility] Work Phone: OUTSIDE SURG PATH SLIDE REVI EWon 02-01-2024 CASE REPORT Normal [facility] Comment on above: Order Comment: Vincent garcia Type: FORMALIN-FIXED PARAFFIN-EMBEDDED TISSUE SPECIMEN Ordering Facility: [facility] Outside Review Address: , , Result Comment: Surg ical Pathology Report Case: [id number] Authorizing Provider: Sonja Perez MD Collected: 02/01/2024 10:41 PM Ordering Location: [facility] Main Received: 02/01/2024 10:40 PM [facility] Pathologist: Kayce Ingram MD Specimen: Slide(s), 24 SLIDES ([id number]) Performed By: #### L [id number] #### [facility] [id number] [address] [place] [address] STATES OF [facility] FINAL DIAGNOSIS Normal [facility] Comment on above: Order Comment: Vincent garcia Type: FORMALIN-FIXED PARAFFIN-EMBEDDED TISSUE SPECIMEN Ordering Facility: [facility] Review Address: , , Result Comment: [place], [place] ([id number], 01/19/24) A. Right axillary lymph node, core biopsy: - Metastatic carcinoma consistent with breast primary. - Outside immunohistochemical stains reviewed: Estrogen receptor positive, Progesterone receptor positive (rare weak), AE1/3 positive, GATA3 positive, Mammaglobin positive (weak). B. Right breast, core biopsy: - Invasive ductal carcinoma (8 mm in this core biopsy specimen), [place] grade 3. - Outside immunohistochemical stains reviewed: Estrogen receptor positive (>95%), Progesterone receptor positive (32%), per outside report ADELITA for HER2/ester not amplified; e-cadherin positive, calponin negative, CK8 positive. Performed By: #### L [id number] #### [facility] CLIA [id number] [address] [place] [address] OF [facility] FINAL PERFORMING LAB Normal [facility] Comment on above: Order Comment: Speci men Type: FORMALIN-FIXED PARAFFIN-EMBEDDED TISSUE SPECIMEN Ordering Facility: [facility] Outside Review Address: , , Result Comment: Diag nostic interpretation performed at [facility], [address] [place] [address] CLIA# [id number] Binding Cutter: Cassy Dinero M.D. Performed By: #### L [id number] #### [facility] CLIA [id number] [address] [place] [address] CNPNon 01-30-2024 CNPN Telephone (BRCRMN) [address] ([id number]) 1965 F Date Time Provider Department 01/30/24 KARI MOODY [facility] During your visit today, we recorded the following information about you: Kari Moody RN 01/30/2024 3:19 PM Signed Requested imaging/path slides from: FACILITY: [facility] Pathology Request date: /January 30, 2024 [employer]#: [id number] Kari Moody RN 02/02/2024 11:06 AM Signed February 02, 2024 Slides delivered. FERCHO Dickinson Cymbre, RN 02/02/2024 11:16 AM Signed February 02, 2024 I have attempted to contact this patient to complete new patient intake. Patient was unable to be reach. Left a detailed message requesting a return call. Kari oMody RN Allergies As of Date: 01/30/2024 Noted Allergy Reaction METRONIDAZOLE 01/29/2024 14 - Other: See Comments Date Reviewed: Never Reviewed Problem List As Of Date 01/30/2024 Noted Resolved Knee joint effusion [M25.469] 06/02/2016 Internal derangement of knee [M23.90] 06/02/2016 Contusion of knee [S80.00XA] 06/02/2016 Closed fracture of upper end of tibia [S82.109A]06/24/2016 Sprain of anterior cruciate ligament of right k*06/24/2016 Encounter Status:Closed by KARI MOODY on 01/30/24 Normal [facility] Breast Limited Unilateralon 01-19-2024 Breast Limited Unilateral [facility] [address] [place] [address] [id number] Breast Limited Unilateral MR#: [id number] Acct: [id number] Name: MLI[address] L[address] Rep #: [id number] : 1965 F 58 From: Ahsan leger MD PCP: Dr. Emperatriz Jordan MD Status: REG [facility] Study: Breast Limited Unilateral Date of Exam: Exam# [id number] Ordering Dr: Emperatriz Jordan MD [id number] STUDY: ULTRASOUND BREAST - RIGHT REASON FOR EXAM: Female, 58 years old. Abnormal mammogram. TECHNIQUE: Axial and longitudinal images of the RIGHT breast were performed with a high resolution ultrasound transducer. # OF IMAGES: 101 COMPARISON: Comparison is made with prior mammogram dated January 12, 2024. FINDINGS: RIGHT Breast: The right axilla was examined with ultrasound. There is a 2.4 cm x 1.5 cm 1.2 cm irregular appearing lymph node in the right axilla with increased blood flow. Biopsy recommended. There is also evidence of the 2, benign appearing lymph nodes in the axilla. The larger measures 1.2 cm x 1.2 cm x 0.5 cm. There is evidence of a 2.2 cm x 1.9 cm x 1.7 cm hypoechoic irregular nodule with posterior shadowing at the 3:00 position of the breast at 2 cm from nipple. US/Breast Limited Unilateral IMPRESSION: Abnormal appearing lymph node in the right axilla measuring 2.4 cm x 1.5 cm bone 0.2 cm. 2.2 cm x 1.9 cm x 1.7 cm hypoechoic irregular nodule with some posterior acoustical shadowing at the 3:00 position breast at 2 cm from the nipple. Biopsy recommended. ASSESSMENT CATEGORY: BIRADS Category 5: Highly Suggestive of Malignancy - Appropriate Action Should Be Taken. A letter regarding these results will be sent to the patient by the facility within 30 days. Electronically Signed: Ahsan Wright MD at 9:02 EDT , CC: Dr. Emperatriz Jordan MD Jalousie Installer: Signed Normal [facility] ER (initial)on 01-19-2024 ER (initial) --------- ----- Patient Age/Sex Location Account Attending Physician ----- [address] 58/F OPUS [id number] Dr. Emperatriz Jordan MD ----- Specimen: [id number] Received: 01/22/24 Status: BHAVINKt Charlee Num: [id number] Spec Type: IMMUNO Subm Dr: Dr. Emperatriz Jordan MD PHYSICIAN INSTITUTION [place] [address] SPECIMEN INFORMATION: Tissue Source: A- Right axillary lymph node, B- Right breast mass Clinical Info: Right breast mass Specimen Number: [id number], B CPT code: [id number] METHODOLOGY: Deparaffinized sections of prefer/formalin-fixed tissue or PAP/DQ stained slides are incubated with monoclonal/polyclonal antibodies/oligonucleotide probes. Localization is made via biotin free immunoperoxidase method. Appropriate controls are performed and reacted as expected. Results on target cell population are indicated in the following table: RESULTS: ANTIBODY / CLONE RESULT Block A GATA3 (L50-823) positive Mammaglobin (31A5) positive, weak ER (6F11) positive VA (1E2) positive, rare AE1-3 (AE1/AE3/PCK26) positive Block B P53 (DO-7) positive, missense pattern Ki-67 (30-9) positive, 75% CK8 (37lkayY18) positive CK5-6 (D5 1684) negative Calponin-1 (FX338Q) negative P40 (BC28) positive E-Cad (ECH-6) positive MOC-31 (4565) MORPHOMETRIC ANALYSIS ER (clone 6F11) > 95%, strong intensity VA (clone 16/1E2) 32%, moderate intensity Her-2Neu (clone CB11) 1-2+ The prognostic test for HER2 is performed on formalin-fixed paraffin embedded tissue. A 3+ (positive) staining pattern is defined as intense, homogeneous, complete, circumferential membranous staining in >10% of contiguous tumor cells. A similar weak (2+) staining pattern is interpreted as equivocal. ADELITA follow-up testing is recommended for all equivocal cases. Positivity/negativity for ER/VA is reported if > or < 1% of the tumor cells are immuno- reactive, respectively. The ASCO/CAP criteria is used for scoring. ----- Patient Age/Sex Location Account Attending Physician ----- [address] 58/F OPUS [id number] Dr. Emperatriz Jordan MD ----- RESULTS: (Continued) Reference: Journal of Clinical Oncology, 2013; 31:2041-4441 2010; 16:1295-5509. Ischemic time: Less than one hour: Yes. These assays have not been validated on decalcified tissues. Results should be interpreted with caution given the likelihood of false negativity on decalcified specimens or fixation greater than 72 hours. Alternative testing methods (FISH/dualISH for Her2; gene expression for ER) are recommended, if applicable. Please notify the laboratory if additional testing is required. These tests were developed and their performance characteristics determined by [facility]. They may not have been cleared or approved by the U.S. Food and Drug Administration. The FDA has determined that such clearance or approval is not necessary. The above immunohistochemical/dualISH markers are ordered and reviewed by the Pathologist. The test for HER 2 is performed on formalin-fixed paraffin embedded tissue using the CB11 mouse monoclonal antibody (Familonet). A 3+ staining pattern is interpreted as positive and is defined as a strong membranous staining involving the entire cell membrane in over 30% of invasive tumor cells. A similar weak staining pattern (2+) involving 10% of the tumor cells is interpreted as equivocal. HER 2 follow-up testing by FISH is recommended for all equivocal results. Reference: [place] Society of Clinical Oncology and the College of [place] [employer] (J. Clin. Oncol. 23: 118-145, 2007). Fixative Used: Formalin; Duration of Fixation: 30 Hrs.; Sample Adequate: Yes INTERPRETATION: A. Right axillary lymph node, biopsy: Consistent with metastatic breast carcinoma. B. Right breast, biopsy: Invasive ductal carcinoma, provisional grade 3. Positive for estrogen receptors (favorable prognostic indicator). Positive for progesterone receptors (favorable prognostic indicator). Equivocal for overexpression of RZO0you. SANTIAGO/ 01/23/2024 ----- ADDENDUM Addendum 1 Entered: 01/26/24-1141 IN SITU HYBRIDIZATION (ADELITA) FOR HER2 Interpretation: Negative/ Not amplified HER2 : CEP-17 Ratio: 1.0 Average HER2 Signa (more content not included)... Normal [facility] Comment on above: Performed By: #### P ER #### [facility] [place], [address] Frozen Section (charge)on Frozen Section (charge) ----- Patient Age/Sex Location Account Attending Physician ----- [address]ER[address] 58/F OPUS [id number] Dr. Emperatriz Jordan MD ----- Specimen: [id number] Received: 01/19/24 Status: EVA Deshpande Num: [id number] Spec Type: BREAST BX Subm Dr: Dr. Emperatriz Jordan MD HEADER OPERATION: Biopsy of right breast mass and lymph node PRE-OP DIAGNOSIS: Right breast mass TISSUE SUBMITTED: A- Lymph node right axillary, B- Right breast mass tissue-3o'clock, 2.0cm from nipple Ischemic Time: 1 minute Fixation Time: 30 hours ----- FROZEN SECTION DIAGNOSIS Right axillary lymph node, biopsy: Metastatic carcinoma, non-small cell. AM/mr 01/19/2024 MICROSCOPIC DIAGNOSIS A. Right axillary lymph node, core biopsy: Metastatic carcinoma consistent with breast primary. See comment. B. Right breast, core biopsy: Invasive ductal carcinoma. See synoptic report below. AM/mr 01/22/2024 COMMENT A. Immunohistochemistry ([id number]) supports the above diagnosis. B. INVASIVE BREAST CANCER SUMMARY: Procedure: Needle core biopsy Specimen Laterality: Right breast Tumor site: 3o'clock, 2.0cm from nipple Histologic type: Invasive ductal carcinoma Provisional Histologic grade: 3 Tubule Differentiation Score: 3 Nuclear Pleomorphism Score: 3 Mitotic Rate Score: 2 Tumor Size ( greatest dimension): 9.0mm Ductal Carcinoma In situ: Not identified Angiolymphatic Invasion: Not identified Microcalcifications: Not identified Additional Findings: None Breast Marker Study: [id number] ER:>95%(strong intensity) VA:32% (moderate intensity) Her2:1-2+(equivocal) ----- Patient Age/Sex Location Account Attending Physician ----- [address] 58/F OPUS [id number] Dr. Emperatriz Jordan MD ----- Ki67:75% Xou1ImqmzWV:Pending The above summary is in compliance with College of [employer] (CAP) Cancer Protocols Checklist and [place] Joint Committee on Cancer (AJCC), Staging Manual, 8th Ed. Dualish results for Her2 will be reported as a addendum. Case has been reviewed in consultation with Dr. Torres who concurs with the above diagnosis. IDC:LAKEISHA MICROSCOPIC DESCRIPTION Slides are reviewed. GROSS DESCRIPTION A. Received in saline for frozen section diagnosis labeled with the patient's name is a specimen designated Right lymph node. The specimen consists of two core of light dinh soft tissue each measuring 0.5cm in length and 0.1cm in diameter. The entire specimen is submitted for frozen section diagnosis in one cassette. B. Received in fixative is one container labeled with the patient's name and designated Right breast. The specimen consists of two elongated fragments of fibroadipose tissue measuring in aggregate 1.5 x 0.2 x 0.1cm. The entire specimen is submitted in one cassette. LAKEISHA/ 01/19/2024 TC:0 [facility]: [id number] ----- ADDENDUM Addendum 1 Entered: 02/05/24 This addendum is added to incorporate an outside pathology consultation report. The case was examined at [facility] (#[id number]) and the following diagnosis was rendered. A. Right axillary lymph node, core biopsy: Metastatic carcinoma consistent with breast primary. Outside immunohistochemistry stains reviewed: Estrogen receptor positive, Progesterone receptor positive (rare weak). AE1/3 positive, GATA3 positive, Mammaglobin positive (weak). B. Right breast, core biopsy: Invasive ductal carcinoma (8mm in this core biopsy specimen), [place] grade 3. Outside immunohistochemistry stains reviewed: Estrogen receptor positive (>95%), ----- Patient Age/Sex Location Account Attending Physician ----- [address] 58/F OPUS [id number] Dr. Emperatriz Jordan MD ----- ADDENDUM (Continued) Progesterone receptor positive (32%), per outside report ADELITA for HER2/ester not amplified; e-cadherin positive, calponin negative, CK8 positive. Please see complete above mentioned consultation report in EMR Addendum Signed (more content not included)... Normal [facility] Comment on above: Performed By: #### P FSC ####[facility] [address] [place], [address] Surgery Visit Reporton 01-18 Surgery Visit Report [facility] [address] [place] [address] OFFICE VISIT Date of Service: 01/19/24 MR#: [id number] Acct: [id number] Name: [address] Rep #: [id number] : 1965 Provider: Dr. Rachel burdick MD Age/Sex: 58/F Location: [facility] Status: Signed Intake Vital Signs 01/17/24 10:51 01/19/24 10:26 Height 5 ft 5 in 5 ft 5 in Weight: 214 lb BMI 35.6 BP 147/88 H Blood Pressure Location Rt brachial Position Sitting Respiration 17 Pulse 67 Pulse Source Monitor Pulse Oximetry (%) 100 Oxygen Delivery Method room air Intake Visit Reasons: Right Breast biopsy Chief Complaint: right breast biopsy Is patient in pain?: No Allergies metronidazole (From Flagyl) Allergy (Verified 01/19/24 10:27) Hives Medications ???Medication ???Instructions ???Recorded ???Confirmed ???Type ergocalciferol (vitamin D2) 1,250 1 unit PO DAILY 09/09/21 01/19/24 History mcg (50,000 unit) capsule hydrochlorothiazide 25 mg tablet 25 mg PO DAILY 09/09/21 01/19/24 History levothyroxine 50 mcg tablet 1 tablet PO DAILY 09/09/21 01/19/24 History biotin 500 mcg capsule 1 mg PO DAILY 10/13/21 01/19/24 History magnesium 200 mg tablet 200 mg PO DAILY 10/13/21 01/19/24 History turmeric 400 mg capsule 400 mg PO DAILY 10/13/21 01/19/24 History vitamin C 90 mg-zinc gluconate 15 1 flakita PO DAILY 10/13/21 01/19/24 History mg-herbal complex no. 325 lozenges (Elderberry Zinc Vit C) [facility] Medical History (Updated 01/19/24 @ 13:[address] Rachel Vaz MD) Post-menopausal Wears glasses Anxiety Alcohol use Thyroid disease Arthritis Fatty liver Back pain Injury of back Non-smoker Leg cramps History of edema Hypertension History of irregular heartbeat Surgical History Hx of hysterectomy Hx laparoscopic cholecystectomy History of delivery Family History (Updated 01/19/24 @ 10:26 by Jennifer Reyes) Mother Cancer pancreatic Social History (Updated 01/19/24 @ 10:26 by Jennifer Reyes) Smoking Status: Never smoker alcohol intake: current alcohol intake frequency: a few times a week HPI HPI HPI: 58-year-old female presents due to abnormal breast mammogram and ultrasound. Patient states she does get yearly mammograms. Patient did feel her right breast and think is likely a fibroadenoma and did have an upcoming mammogram scheduled so did not think anything of it as patient's mom did have history of biopsies with fibroadenomas. Patient's mammogram showed breast mass and large right axillary lymph nodes recommended ultrasound. Ultrasound did show a 1.6 x 1.2 cm mass in the central area of the right breast with axillary adenopathy. Patient does admit to some breast pain in the last few nights in her right breast. Also occasional itching in both breast but more so on the right. Age of menses 11, age of of first child 18, no family history of breast cancer, mom did have a history of pancreatic cancer, no previous breast biopsies. ROS General General: Yes weight change and fatigue; No appetite, colon cancer, breast cancer or weakness HEENT HEENT: No difficulty swallowing, eye injury, eye surgery, swollen glands or hoarseness Endo Endocrine: Yes thyroid disease; No diabetes mellitus, thyroid cancer, Hair loss, heat intolerance or cold intolerance Skin Skin: No rash or changing moles Breast Breast: Yes right breast lump, abnormal mammogram and abnormal US; No left breast lump, nipple discharge, breast pain or breast enlargement Musc Musculoskeletal: Yes arthritis; No back problems, rheumatoid arthritis, gout or joint pain Cardio Cardiovascular: No murmur, pacemaker, heart disease, atrial fibrillation, high blood pressure, heart attack, heart stent, palpitations, shortness of breat with exertion or chest pain Psych Psychiatric: Yes anxiety; No depression or hearing voices Resp Respiratory: No shortness of breath, No sleep apnea, No cough, No COPD, No asthma, No emphysema and No wheezing Gastro Gastrointestinal: No abdominal pain, No nausea or vomiting, No diarrhea, No constipation, No blood in stool, No acid reflux, No hemorrhoids, No ulcers, No gallbladder problem and No black,tarry stools Mango Hematologic: No blood thinners, No blood disorders, No bleeding, No anemia and No blood clots Neuro Neurologic: No system reviewed and no additional complaints, except as documented, No as per HPI, No abnormal gait, No abnormal hearing, No abnormal movements, No abnormal speech, No behavioral changes, No burning sensations, No confusion, No convulsions, No disequilibrium, No dizziness, No localized weakness, No frequent falls, No headache(s), No lack of coordination, No loss of vision, No mem (more content not included)... Normal [facility] CBC W/Diff, Automatedon 12-31 Absolute Lymph 2.03 X10 3/uL Normal 0.83-4.51 [facility] Comment on above: Performed By: #### L 500.4050, L100.0100, L500.4100 ####[facility] [address] [place], [address] Absolute Neut 2.0 X10 3/uL Normal 2.0-7.7 [facility] Comment on above: Performed By: #### L 500.4050, L100.0100, L500.4100 ####[facility] [address] [place], [address] Basophils/100 WBC (Bld) 0.4 % Normal 0-1 [facility] Comment on above: Performed By: #### L 500.4050, L100.0100, L500.4100 ####[facility] [address] [place], [address] Eosinophils/100 WBC (Bld) 2.2 % Normal 0-5 [facility] Comment on above: Performed By: #### L 500.4050, L100.0100, L500.4100 ####[facility] [address] [place], [address] Erythrocyte distribution width (RBC) [Ratio] 12.9 % Normal 11.6-14.6 [facility] Comment on above: Performed By: #### L 500.4050, L100.0100, L500.4100 ####[facility] [address] [place], [address] Hematocrit (Bld) [Volume fraction] 42.1 % Normal 37-47 [facility] Comment on above: Performed By: #### L 500.4050, L100.0100, L500.4100 ####[facility] [address] [place], [address] Hemoglobin (Bld) [Mass/Vol] 14.1 g/dL Normal 12.0-15.0 [facility] Comment on above: Performed By: #### L 500.4050, L100.0100, L500.4100 ####[facility] [address] [place], [address] IG% 0.000 Normal 0.0-0.9 [facility] Comment on above: Result Comment: IG% - Immature Granulocytes (promyelocytes, myelocytes and metamyelocytes) > 1% indicates that a LEFT SHIFT is Present. Performed By: #### L 500.4050, L100.0100, L500.4100 ####[facility] [address] [place], [address] Lymphocytes/100 WBC (Bld) 44.8 % High 19-41 [facility] Comment on above: Performed By: #### L 500.4050, L100.0100, L500.4100 ####[facility] [address] [place], [address] MCH (RBC) [Entitic mass] 28.8 pg Normal 27.0-32.0 [facility] Comment on above: Performed By: #### L 500.4050, L100.0100, L500.4100 ####[facility] [address] [place], [address] MCHC (RBC) [Mass/Vol] 33.5 g/dL Normal 32-36 [facility] Comment on above: Performed By: #### L 500.4050, L100.0100, L500.4100 ####[facility] [address] [place], [address] MCV (RBC) [Entitic vol] 86.1 fL Normal 81-99 [facility] Comment on above: Performed By: #### L 500.4050, L100.0100, L500.4100 ####[facility] [address] [place], [address] Monocytes/100 WBC (Bld) 7.7 % Normal 0-10 [facility] Comment on above: Performed By: #### L 500.4050, L100.0100, L500.4100 ####[facility] [address] [place], [address] Neutrophils/100 WBC (Bld) 44.9 % Low 47-70 [facility] Comment on above: Performed By: #### L 500.4050, L100.0100, L500.4100 ####[facility] [address] [place], [address] Nucleated RBC (Bld) [#/Vol] 0 10*3/uL Normal 0-5 [facility] Comment on above: Performed By: #### L 500.4050, L100.0100, L500.4100 ####[facility] [address] [place], [address] Platelet mean volume (Bld) [Entitic vol] 10.4 fL Normal 6.2-12.0 [facility] Comment on above: Performed By: #### L 500.4050, L100.0100, L500.4100 ####[facility] [address] [place], [address] Platelets (Bld) [#/Vol] 210 10*3/uL Normal 150-450 [facility] Comment on above: Performed By: #### L 500.4050, L100.0100, L500.4100 ####[facility] [address] [place], [address] RBC (Bld) [#/Vol] 4.89 10*6/uL Normal 4.2-5.4 [facility] Comment on above: Performed By: #### L 500.4050, L100.0100, L500.4100 ####[facility] [address] [place], [address] RDW SD 40.3 fl Normal 35.1-43.9 [facility] Comment on above: Performed By: #### L 500.4050, L100.0100, L500.4100 ####[facility] [address] [place], [address] WBC (Bld) [#/Vol] 4.5 10*3/uL Normal 4.4-11.0 [facility] Comment on above: Performed By: #### L 500.4050, L100.0100, L500.4100 ####[facility] [address] [place], [address] Comprehensive Metabolic [facility] 01-12-2024 Albumin [Mass/Vol] 3.9 g/dL Normal 3.2-5.0 [facility] Comment on above: Performed By: #### L 500.4050, L100.0100, L500.4100 ####[facility] [address] [place], [address] Albumin/Globulin [Mass ratio] 1.2 {ratio} Normal 0.9-2.4 [facility] Comment on above: Performed By: #### L 500.4050, L100.0100, L500.4100 ####[facility] [address] [place], [address] ALK P 79 U/L Normal 45-117 [facility] Comment on above: Performed By: #### L 500.4050, L100.0100, L500.4100 ####[facility] [address] [place], [address] ALT [Catalytic activity/Vol] 28 U/L Normal 13-56 [facility] Comment on above: Performed By: #### L 500.4050, L100.0100, L500.4100 ####[facility] [address] [place], [address] AST [Catalytic activity/Vol] 17 U/L Normal 15-37 [facility] Comment on above: Performed By: #### L 500.4050, L100.0100, L500.4100 ####[facility] [address] [place], [address] Bilirubin [Mass/Vol] 0.60 mg/dL Normal 0.20-1.00 [facility] Comment on above: Result Comment: For patients on eltrombopag therapy, use of Dimension [place] TBIL is not recommended. Performed By: #### L 500.4050, L100.0100, L500.4100 ####[facility] [address] [place], [address] BUN/CRE 22.1 RATIO High 10-20 [facility] Comment on above: Performed By: #### L 500.4050, L100.0100, L500.4100 ####[facility] [address] [place], [address] CA,Total 9.2 mg/dL Normal 8.5-10.1 [facility] Comment on above: Performed By: #### L 500.4050, L100.0100, L500.4100 ####[facility] [address] [place], [address] Chloride [Moles/Vol] 101 mmol/L Normal 98-107 [facility] Comment on above: Performed By: #### L 500.4050, L100.0100, L500.4100 ####[facility] [address] [place], [address] CO2 [Moles/Vol] 27.0 mmol/L Normal 21.0-32.0 [facility] Comment on above: Performed By: #### L 500.4050, L100.0100, L500.4100 ####[facility] [address] [place], [address] Creatinine [Mass/Vol] 0.59 mg/dL Normal 0.55-1.02 [facility] Comment on above: Result Comment: The validity of the calculated GFR GFRAA in patients over 70 years has not been determined. Clinical correlation is essential. Performed By: #### L 500.4050, L100.0100, L500.4100 ####[facility] [address] [place], [address] EST GFR - AA 134 mL/min Normal >60 [facility] Comment on above: Result Comment: Afri can Hungarian GFR Calc Performed By: #### L 500.4050, L100.0100, L500.4100 ####[facility] [address] [place], [address] GAP 7 Normal 5-15 [facility] Comment on above: Performed By: #### L 500.4050, L100.0100, L500.4100 ####[facility] [address] [place], [address] GFR/1.73 sq M.predicted among non-blacks MDRD (S/P/Bld) [Vol rate/Area] 111 mL/min/{1.73_m2} Normal >60 [facility] Comment on above: Result Comment: Non- GFR Calc Performed By: #### L 500.4050, L100.0100, L500.4100 ####[facility] [address] [place], [address] Globulin (S) [Mass/Vol] 3.3 g/dL Normal 2.2-4.2 [facility] Comment on above: Performed By: #### L 500.4050, L100.0100, L500.4100 ####[facility] [address] [place], [address] Glucose [Mass/Vol] 85 mg/dL Normal 74-106 [facility] Comment on above: Performed By: #### L 500.4050, L100.0100, L500.4100 ####[facility] [address] [place], [address] Potassium [Moles/Vol] 3.8 mmol/L Normal 3.5-5.1 [facility] Comment on above: Performed By: #### L 500.4050, L100.0100, L500.4100 ####[facility] [address] [place], [address] Sodium [Moles/Vol] 135 mmol/L Low 136-145 [facility] Comment on above: Performed By: #### L 500.4050, L100.0100, L500.4100 ####[facility] [address] [place], [address] T PROT 7.2 g/dL Normal 6.4-8.2 [facility] Comment on above: Performed By: #### L 500.4050, L100.0100, L500.4100 ####[facility] [address] [place], [address] Urea nitrogen [Mass/Vol] 13 mg/dL Normal 7-18 [facility] Comment on above: Performed By: #### L 500.4050, L100.0100, L500.4100 ####[facility] [address] [place], [address] Lipid Profileon 01-12-2024 Cholesterol [Mass/Vol] 238 mg/dL High 200 [facility] Comment on above: Result Comment: <200 mg/dL Desirable 200-240 mg/dL Borderline >240 mg/dL High Risk Performed By: #### L 500.4050, L100.0100, L500.4100 ####[facility] [address] [place], [address] Cholesterol in HDL [Mass/Vol] 60 mg/dL Normal [facility] Comment on above: Result Comment: The drugs N-Acetylcysteine and Metamizole may falsely depress this assay. Reference Range HDL <40 mg/dL Low HDL Cholesterol HDL >or= 60 mg/dL High HDL Cholesterol Performed By: #### L 500.4050, L100.0100, L500.4100 ####[facility] [address] [place], [address] Cholesterol in LDL [Mass/Vol] 148 mg/dL High 0-130 [facility] Comment on above: Performed By: #### L 500.4050, L100.0100, L500.4100 ####[facility] [address] [place], [address] Cholesterol in VLDL [Mass/Vol] 30 mg/dL Normal 5-40 [facility] Comment on above: Performed By: #### L 500.4050, L100.0100, L500.4100 ####[facility] [address] [place], [address] Triglyceride [Mass/Vol] 149 mg/dL Normal [facility] Comment on above: Result Comment: The drugs N-Acetylcysteine and Metamizole may falsely depress this assay. Serum Triglycerides Reference Interval Normal <150 mg/dL Borderline high 150 - 199 mg/dL High 200 - 499 mg/dL Very High > or = 500 mg/dL Performed By: #### L 500.4050, L100.0100, L500.4100 ####[facility] [address] [place], [address] SCRN MAMM (CAD)W/ELVER BILATo n 01-12-2024 SCRN MAMM (CAD)W/ELVER BILAT [facility] [address] [place] [address] SCRN MAMM (CAD)W/ELVER BILAT MR#: [id number] Acct: [id number] Name: [address] Rep #: [id number] : 1965 F 58 From: Ahsan leger MD PCP: Dr. Emperatriz Jordan MD Status: [facility] Study: SCRN MAMM (CAD)W/ELVER BILAT Date of Exam: 12/31 08/26 Exam# [id number] Ordering Dr: Emperatriz Jordan MD [id number] MAMMOGRAPHY - BILATERAL SCREENING REASON FOR EXAM: Female, 58 years old. Routine annual screening examination. PERTINENT HISTORY: Non-contributory. TECHNIQUE: Digital bilateral breast elver (3D mammographic acquisition) in the CC and MLO projections. 2-D mediolateral oblique (MLO) and craniocaudad (CC) views of both breasts were obtained. CAD: Full Field Digital Mammography with Computer Added Detection was performed. COMPARISON: Comparison is made with prior study dated December 30, 2022 and December 10, 2021. FINDINGS: Breast Composition: There are scattered areas of fibroglandular density. There is evidence of a new 1.6 cm x 1.2 cm mass in the central medial anterior aspect of the right breast. There is also enlargement of the right axilla lymph nodes at this time. Biopsy recommended. No other significant abnormalities are identified. BI/SCRN MAMM (CAD)W/ELVER BILAT IMPRESSION: New 1.6 cm x 1.2 cm mass in the central medial anterior aspect of the right breast. Enlarged right axillary lymph nodes. Biopsy recommended. ASSESSMENT CATEGORY: BIRADS Category 4: Suspicious - Biopsy Should Be Considered. A letter regarding these results will be sent to the patient by the facility within 30 days. Approximately 10% of breast cancers are not detected by mammography. A normal mammogram should not delay biopsy of a clinically suspicious abnormality. [id number] Electronically Signed: Ahsan Wright MD at 10:42 EDT , CC: Dr. Emperatriz Jordan MD Jalousie Installer: Signed Normal [facility] Basophil percentageOrdered B y: Leti Nava on 02-03-2023 Chloride [Moles/Vol] 102 mmol/L 98-107 [facility] Glucose [Mass/Vol] 100 mg/dL 74-106 [facility] Comment on above: Fasting Glucose resu lt from 100 to 125 mg/dL suggests IMPAIRED HOMEOSTASIS per A.D.A. criteria. Potassium [Moles/Vol] 3.6 mmol/L 3.5-5.1 [facility] Sodium [Moles/Vol] 137 mmol/L 136-145 [facility] Laboratory - Chemistry and C hemistry - challengeOrdered By: Leti Nava on 02-03-2023 CO2 [Moles/Vol] 28.0 mmol/L 21.0-32.0 [facility] Urea nitrogen/Creatinine [Mass ratio] 24.8 mg/mg 10- [facility] No Panel InformationOrdered By: Leti Nava on 02-03-2023 Estimated GFR (MDRD) Amer 130 mL/min >60 [facility] Comment on above: GFR Calc Estimated GFR (MDRD) Non-Af Amer 108 mL/min >60 [facility] Comment on above: Non- GFR Calc Thyroid Stimulating Hormone (TSH) 1.26 uIU/mL 0.358-3.74 [facility] Vitamin D 25-Hydroxy 100.0 ng/mL [facility] Comment on above: Vitamin D 25(OH) Sta tus Range Deficiency <20 ng/mL (50nmol/L) Insufficiency 20 - 30 ng/mL (50 - 75 nmol/L) Sufficiency 30 - 100 ng/mL (75 - 250 nmol/L) Toxicity >100 ng/mL (>250 nmol/L) Serum or plasma calcium yuli urement (mass/volume)Ordered By: Leti Nava on 02-03-2023 Calcium [Mass/Vol] 9.0 mg/dL 8.5-10.1 [facility] Serum or plasma creatinine m easurement (mass/volume)Ordered By: Leti Nava on 02-03-2023 Creatinine [Mass/Vol] 0.60 mg/dL 0.55-1.02 [facility] Comment on above: The validity of the calculated GFR & GFRAA in patients over 70 years has not been determined. Clinical correlation is essential. Serum or plasma urea nitroge n measurement (mass/volume)Ordered By: Leti Nava on 02-03-2023 Urea nitrogen [Mass/Vol] 15 mg/dL -18 [facility] Thin prep Papanicolaou smear with manual screeningOrdered By: Leti Nava on 02-03-2023 Thin prep Papanicolaou smear with manual screening 7 5-15 [facility] Basophil percentageOrdered B y: Dr. Nava on 07-20-2022 Chloride [Moles/Vol] 99 mmol/L 98-107 [facility] Glucose [Mass/Vol] 89 mg/dL 74-106 [facility] Potassium [Moles/Vol] 3.8 mmol/L 3.5-5.1 [facility] Sodium [Moles/Vol] 138 mmol/L 136-145 [facility] Laboratory - Chemistry and C hemistry - challengeOrdered By: Dr. Nava on 07-20-2022 CO2 [Moles/Vol] 32.0 mmol/L 21.0-32.0 [facility] Urea nitrogen/Creatinine [Mass ratio] 27.5 mg/mg 10-20 [facility] No Panel InformationOrdered By: Dr. Nava on 07-20-2022 Estimated GFR (MDRD) Amer 106 mL/min >60 [facility] Comment on above: GFR Calc Estimated GFR (MDRD) Non-Af Amer 87 mL/min >60 [facility] Comment on above: Non- GFR Calc Thyroid Stimulating Hormone (TSH) 1.57 uIU/mL 0.358-3.74 [facility] Vitamin D 25-Hydroxy 85.4 ng/mL [facility] Comment on above: Vitamin D 25(OH) Sta tus Range Deficiency <20 ng/mL (50nmol/L) Insufficiency 20 - 30 ng/mL (50 - 75 nmol/L) Sufficiency 30 - 100 ng/mL (75 - 250 nmol/L) Toxicity >100 ng/mL (>250 nmol/L) Serum or plasma calcium yuli urement (mass/volume)Ordered By: Dr. Nava on 07-20-2022 Calcium [Mass/Vol] 9.2 mg/dL 8.5-10.1 [facility] Serum or plasma creatinine m easurement (mass/volume)Ordered By: Dr. Nava on 07-20-2022 Creatinine [Mass/Vol] 0.73 mg/dL 0.55-1.02 [facility] Comment on above: The validity of the calculated GFR & GFRAA in patients over 70 years has not been determined. Clinical correlation is essential. Serum or plasma urea nitroge n measurement (mass/volume)Ordered By: Dr. Nava on 07-20-2022 Urea nitrogen [Mass/Vol] 20 mg/dL 01-17 [facility] Thin prep Papanicolaou smear with manual screeningOrdered By: Dr. Nava on 07-20-2022 Thin prep Papanicolaou smear with manual screening 01 04-15 [facility] Basophil percentageon 2021 Chloride [Moles/Vol] 105 mmol/L 98-107 [facility] Work Phone: Glucose [Mass/Vol] 93 mg/dL 74-106 [facility] Work Phone: Potassium [Moles/Vol] 4.1 mmol/L 3.5-5.1 [facility] Work Phone: Sodium [Moles/Vol] 138 mmol/L 136-145 [facility] Work Phone: Laboratory - Chemistry and C hemistry - challengeon 01-12-2022 CO2 [Moles/Vol] 31.0 mmol/L 21.0-32.0 [facility] Work Phone: Urea nitrogen/Creatinine [Mass ratio] 26.9 mg/mg 10-20 [facility] Work Phone: No Panel Informationon 01-12 Estimated GFR (MDRD) Amer 133 mL/min >60 [facility] Work Phone: Comment on above: GFR Calc Estimated GFR (MDRD) Non-Af Amer 110 mL/min >60 [facility] Work Phone: Comment on above: Non- GFR Calc Thyroid Stimulating Hormone (TSH) 2.31 uIU/mL 0.358-3.74 [facility] Work Phone: Serum or plasma calcium yuli urement (mass/volume)on 01-12-2022 Calcium [Mass/Vol] 8.9 mg/dL 8.5-10.1 [facility] Work Phone: Serum or plasma creatinine m easurement (mass/volume)on 01-12-2022 Creatinine [Mass/Vol] 0.60 mg/dL 0.55-1.02 [facility] Work Phone: Comment on above: The validity of the calculated GFR & GFRAA in patients over 70 years has not been determined. Clinical correlation is essential. Serum or plasma urea nitroge n measurement (mass/volume)on 01-12-2022 Urea nitrogen [Mass/Vol] 16 mg/dL 7-18 [facility] Work Phone: Thin prep Papanicolaou smear with manual screeningon 01-12-2022 Thin prep Papanicolaou smear with manual screening 2 5-15 [facility] Work Phone: Basophil percentageon 2021 Bilirubin [Mass/Vol] 0.50 mg/dL 0.20-1.00 [facility] Work Phone: Comment on above: For patients on eltr ombopag therapy, use of Dimension [place] TBIL is not recommended. Protein [Mass/Vol] 7.5 g/dL 6.4-8.2 [facility] Work Phone: Direct bilirubinon 2 Bilirubin.direct [Mass/Vol] 0.11 mg/dL 0.00-0.30 [facility] Work Phone: Laboratory - Chemistry and C hemistry - challengeon 10-27-2021 ALP [Catalytic activity/Vol] 71 U/L 45-117 [facility] Work Phone: ALT [Catalytic activity/Vol] 29 U/L 13-56 [facility] Work Phone: Globulin (S) [Mass/Vol] 3.4 g/dL 2.2-4.2 [facility] Work Phone: Serum or plasma albumin yuli urement (mass/volume)on 10-27-2021 Albumin [Mass/Vol] 4.1 g/dL 3.2-5.0 [facility] Work Phone: Thin prep Papanicolaou smear with manual screeningon 10-27-2021 Thin prep Papanicolaou smear with manual screening 12 U/L 15-37 [facility] Work Phone: Laboratory - Microbiology an d Antimicrobial susceptibilityon 07-15-2021 SARS-CoV-2 (COVID-19) RNA EDGARDO+probe Ql (Unsp spec) Detected Not Detect [facility] Work Phone: Comment on above: Normal Reference Ran ge: Not DetectedMethod:(RT-PCR) real-time reverse transcriptase PCRLuminex JESSICA Instrument*The Food and Drug Administration (FDA) has issued an Emergency Use Authorization (EAU) for the JESSICA SARS-CoV-2 Assay for the rapid detection of the virus that causes COVID-19. This test has been validated, but the FDAs independent review of this validation is pending.*Negative results do not preclude infection and should not be used as the sole basis for treatment or patient management. Optimum specimen types and timing for peak viral levels during infections caused by SARS-CoV-2 have not been determined. Collection of multiple specimens from the same patient may be necessary to detect the virus. The possibility of a false negative result should be considered if the patient has clinical presentation or has had recent exposure. CMP with eGFRon 07-16-2020 Age - Reported 55 years Normal [facility] Comment on above: Performed By: #### 2 [id number] #### [facility],[address] [place] [address] Albumin [Mass/Vol] 4.3 g/dL Normal 3.4 - 5.0 [facility] Comment on above: Performed By: #### 2 84921 #### [facility],[address] [place] [address] Albumin/Globulin [Mass ratio] 1.6 {ratio} Normal 0.9 - 1.6 [facility] Comment on above: Performed By: #### 2 97401 #### [facility],[address] [place] [address] ALK PHOS 73 U/L Normal 46 - 116 [facility] Comment on above: Performed By: #### 2 93790 #### [address] [address] ALT/SGPT 33 U/L Normal 14 - 59 [facility] Comment on above: Performed By: #### 2 31502 #### [facility],[address] [place] [address] Anion gap [Moles/Vol] 10 mmol/L Normal 10 - 20 [facility] Comment on above: Performed By: #### 2 93897 #### [address] [address] AST/SGOT 15 U/L Normal 13 - 39 [facility] Comment on above: Performed By: #### 2 34680 #### [address] [address] B/C RATIO 17 ratio Normal 0 - 30 [facility] Comment on above: Performed By: #### 2 25651 #### [facility],[address] [place] [address] Bilirubin [Mass/Vol] 0.6 mg/dL Normal 0.2 - 1.0 [facility] Comment on above: Performed By: #### 2 92520 #### [facility],[address] [place] [address] Calcium [Mass/Vol] 9.5 mg/dL Normal 8.5 - 10.1 [facility] Comment on above: Performed By: #### 2 57241 #### [facility],[address] [place], [place] [address] Chloride [Moles/Vol] 101 mmol/L Normal 98 - 107 [facility] Comment on above: Performed By: #### 2 91116 #### [facility],[address] [place], [place] [address] CO2 [Moles/Vol] 32.8 mmol/L High 21.0 - 32.0 [facility] Comment on above: Performed By: #### 2 49543 #### [facility],[address] [place], [place] [address] Creatinine [Mass/Vol] 0.7 mg/dL Normal 0.5 - 1.0 [facility] Comment on above: Performed By: #### 2 92999 #### [facility],[address] [place] [address] GFR/1.73 sq M predicted among non-blacks MDRD (S/P/Bld) [Vol rate/Area] mL/min/{1.73_m2} Normal 60 - 999 [facility] Comment on above: Performed By: #### 2 46817 #### [facility],[address] [place] [address] Result Comment: ACCO RDING TO THE NATIONAL KIDNEY DISEASE EDUCATION PROGRAM(NKDE), A NORMAL eGFR IS A VALUE GREATER THAN OR EQUAL TO 60 ML/MIN/1.73 SQ METERS. CHRONIC KIDNEY DISEASE: <60mL/MIN/1.73 SQ METERS KIDNEY FAILURE: <15mL/MIN/1.73 SQ METERS THIS TEST SHOULD ONLY BE USED FOR PATIENTS 18 YEARS OF AGE AND OLDER. GFR/1.73 sq M predicted among non-blacks MDRD (S/P/Bld) [Vol rate/Area] Normal [facility] Comment on above: Result Comment: COMP REHENSIVE METABOLIC PANEL Performed By: #### 2 14156 #### [facility],[address] [place] [address] Globulin (S) [Mass/Vol] 2.7 g/dL Normal 1.5 - 3.8 [facility] Comment on above: Performed By: #### 2 42195 #### [facility],[address] [place] [address] Glucose [Mass/Vol] 78 mg/dL Normal 74 - 106 [facility] Comment on above: Performed By: #### 2 11631 #### [facility],[address] [place] [address] Potassium [Moles/Vol] 4.3 mmol/L Normal 3.5 - 5.1 [facility] Comment on above: Performed By: #### 2 52195 #### [facility],[address] [place] [address] Protein [Mass/Vol] 7.0 g/dL Normal 6.4 - 8.2 [facility] Comment on above: Performed By: #### 2 81173 #### [facility],[address] [place] [address] Sodium [Moles/Vol] 139 mmol/L Normal 136 - 145 [facility] Comment on above: Performed By: #### 2 38989 #### [facility],[address] [place] [address] Urea nitrogen [Mass/Vol] 12 mg/dL Normal 7 - 18 [facility] Comment on above: Performed By: #### 2 04782 #### [facility],[address] [place] [address] LIPID PROFILEon 07-16-2020 Cholesterol [Mass/Vol] 212 mg/dL Normal 0 - 240 [facility] Comment on above: Performed By: #### 2 03844 #### [facility],[address] [place] [address] Cholesterol in HDL [Mass/Vol] 59 mg/dL Normal 40 - 60 [facility] Comment on above: Performed By: #### 2 77776 #### [facility],[address] [place] [address] Cholesterol in LDL [Mass/Vol] 138 mg/dL High 0 - 129 [facility] Comment on above: Performed By: #### 2 10681 #### [facility],[address] [place] [address] Cholesterol.total/Ch olesterol in HDL [Mass ratio] 3.6 {ratio} Normal 0.0 - 5.0 [facility] Comment on above: Performed By: #### 2 94709 #### [facility],[address] [place] [address] 09238 Lipid 1996 panel Normal [facility] Comment on above: Result Comment: LIPI D PROFILE Performed By: #### 2 29009 #### [facility],[address] [place] [address] Triglyceride [Mass/Vol] 73 mg/dL Normal 0 - 150 [facility] Comment on above: Performed By: #### 2 23056 #### [facility],[address] [place] [address] CORONAVIRUS PCR [CCL]on 05-03 REF LAB REPORT Positive Normal [facility] Comment on above: Performed By: #### 2 62326 #### [facility],[address] [place] [address] SEND TO IC? YES Normal [facility] Comment on above: Performed By: #### 2 31858 #### [facility],[address] [place] [address]806 COVID 19 Result COUNSELING CENTER DIRECTOR Positive Abnormal CORNEG [facility] Comment on above: Result Comment: Posi tive for COVID19 (SARS CoV2) by PCR.(*) This test was developed and its performance characteristics determined by [facility] [place]. This test has been authorized by [facility] under an Emergency Use Authorization (EUA). This test has been validated in accordance with the FDA's Guidance Document Policy for Diagnostics Testing in Laboratories Certified to Perform High Complexity Testing under CLIA prior to Emergency use Authorization for Coronavirus Disease 2019 during the Public Health Emergency issued on August 31, 2019. [facility] [address] [place] [address] Bala Sheppard III, M.D. [id number] Performed By: #### 2 45870 #### [facility],[address] [place] [address] COVID 19 Source COUNSELING CENTER DIRECTOR Nasopharyngeal Swab Normal [facility] Comment on above: Result Comment: Presley ected on 05/20 AT 1152: Previously reported as NASOPHARYNGEAL Performed By: #### 2 04299 #### [address] [address] Coronavirus 2019on 0 COVID 19 Result COUNSELING CENTER DIRECTOR Abnormal Negative for COVID19 (SARS CoV2) by PCR. [facility] Comment on above: Result Comment: Posi tive for This test was developed and its performance characteristics determined by [facility] [place]. This test has been authorized by FDA under an Emergency Use Authorization (EUA). This test has been validated in accordance with the FDA's Guidance Document Policy for Diagnostics Testing in Laboratories Certified to Perform High Complexity Testing under CLIA prior to Emergency use Authorization for Coronavirus Disease 2019 during the Public Health Emergency issued on August 31, 2019. COVID19 (SARS This test was developed and its performance characteristics determined by [facility] [place]. This test has been authorized by FDA under an Emergency Use Authorization (EUA). This test has been validated in accordance with the FDA's Guidance Document Policy for Diagnostics Testing in Laboratories Certified to Perform High Complexity Testing under CLIA prior to Emergency use Authorization for Coronavirus Disease 2019 during the Public Health Emergency issued on August 31, 2019. CoV2) by This test was developed and its performance characteristics determined by [facility] [place]. This test has been authorized by FDA under an Emergency Use Authorization (EUA). This test has been validated in accordance with the FDA's Guidance Document Policy for Diagnostics Testing in Laboratories Certified to Perform High Complexity Testing under CLIA prior to Emergency use Authorization for Coronavirus Disease 2019 during the Public Health Emergency issued on August 31, 2019. PCR.(*) This test was developed and its performance characteristics determined by [facility] [place]. This test has been authorized by FDA under an Emergency Use Authorization (EUA). This test has been validated in accordance with the FDA's Guidance Document Policy for Diagnostics Testing in Laboratories Certified to Perform High Complexity Testing under CLIA prior to Emergency use Authorization for Coronavirus Disease 2019 during the Public Health Emergency issued on August 31, 2019. Coronavirus 2019on 0 COVID 19 Source [facility] DIRECTOR Normal [facility] Comment on above: Result Comment: Naso pharyngeal Corrected on 05/20 AT 1152: Previously reported as NASOPHARYNGEAL Swab Corrected on 05/20 AT 1152: Previously reported as NASOPHARYNGEAL BMPon 04-18-2019 Anion gap [Moles/Vol] 22.4 mmol/L High 15-22 [facility] Comment on above: Performed By: #### L 100.0010 #### [facility] [address] [place] [address] Calcium [Mass/Vol] 10.3 mg/dL High 8.6-10.0 [facility] Comment on above: Performed By: #### L 100.0010 #### [facility] [address] [place] [address] Chloride [Moles/Vol] 96 mmol/L Low 98-107 [facility] Comment on above: Performed By: #### L 100.0010 #### ML - LABORATORY [address] [place] [address] 73456 CO2 [Moles/Vol] 28 mmol/L Normal 22-29 [facility] Comment on above: Performed By: #### L 100.0010 #### ML - LABORATORY [address] [place] [address] 84288 Creatinine [Mass/Vol] 0.67 mg/dL Normal 0.50-0.90 [facility] Comment on above: Performed By: #### L 100.0010 #### ML - LABORATORY [address] [place] [address] 63666 eGFR if AFR RAI > 60 ml/min/1.73m2 Normal [facility] Comment on above: Result Comment: eGFR >= 60 Indicates normal kidney function. * eGFR IS AN ESTIMATE * (AFR RAI = ) (non-AFR AM = NON-) MDRD calculation used in the eGFR should not be used to dose medications. For further limitations of the eGFR please refer to the Physician Website or the National Kidney Disease Education Program website (www.nkdep.nih.gov). Performed By: #### L 100.0010 #### ML - LABORATORY [address] [place] [address] 38094 eGFR nonAFR Rai > 60 ml/Min/1.73m2 Normal [facility] Comment on above: Performed By: #### L 100.0010 #### ML - LABORATORY [address] [place] [address] 56209 Glucose [Mass/Vol] 128 mg/dL High 74-106 [facility] Comment on above: Performed By: #### L 100.0010 #### [facility] [address] [place] [address] 71514 Potassium [Moles/Vol] 3.4 mmol/L Low 3.5-5.0 [facility] Comment on above: Performed By: #### L 100.0010 #### ML - LABORATORY [address] [place] [address] 86880 Sodium [Moles/Vol] 143 mmol/L Normal 135-145 [facility] Comment on above: Performed By: #### L 100.0010 #### ML - LABORATORY [address] [place] [address] 26006 Urea nitrogen [Mass/Vol] 14 mg/dL Normal 6-20 [facility] Comment on above: Performed By: #### L 100.0010 #### ML - LABORATORY [address] [place] [address] 70730 TSHon 04-18-2019 TSH Qn 1.86 uIU/mL Normal 0.27-4.20 [facility] Comment on above: Result Comment: NOTE : NEW REFERENCE RANGE FOR TSH EFFECTIVE 4.12.19 Performed By: #### L 100.0010 #### ML - LABORATORY [address] [place] [address] 65824 VITAMIN Don 04-18-2019 VITAMIN D 43.5 ng/mL Normal 30-100 [facility] Comment on above: Performed By: #### L 100.0010 #### ML - LABORATORY [address] [place] [address] 90142 CMPon 11-21-2018 A:G RATIO 1.84 Normal 1.1-2.5 [facility] Comment on above: Performed By: #### L 100.0010 #### ML - LABORATORY [address] [place] [address] 19167 Albumin [Mass/Vol] 4.6 g/dL Normal 3.5-5.2 [facility] Comment on above: Performed By: #### L 100.0010 #### ML - LABORATORY [address] [place] [address] 79995 ALK. PHOS 76 U/L Normal 35-105 [facility] Comment on above: Performed By: #### L 100.0010 #### ML - LABORATORY [address] [place] [address] 06086 ALT [Catalytic activity/Vol] 22 U/L Normal 5-33 [facility] Comment on above: Performed By: #### L 100.0010 #### ML - LABORATORY [address] [place] [address] 35929 Anion gap [Moles/Vol] 17.0 mmol/L Normal 15-22 [facility] Comment on above: Performed By: #### L 100.0010 #### ML - LABORATORY [address] [place] [address] 56445 AST [Catalytic activity/Vol] 18 U/L Normal 5-32 [facility] Comment on above: Performed By: #### L 100.0010 #### ML - LABORATORY [address] [place] [address] 67273 Bilirubin Ql (U) 0.6 mg/dL Normal 0.2-1.2 [facility] Comment on above: Performed By: #### L 100.0010 #### ML - LABORATORY [address] [place] [address] 16989 Calcium [Mass/Vol] 9.5 mg/dL Normal 8.6-10.0 [facility] Comment on above: Performed By: #### L 100.0010 #### ML - LABORATORY [address] [place] [address] 02594 Chloride [Moles/Vol] 97 mmol/L Low 98-107 [facility] Comment on above: Performed By: #### L 100.0010 #### ML - LABORATORY [address] [place] [address] 56723 CO2 [Moles/Vol] 29 mmol/L Normal 22-29 [facility] Comment on above: Performed By: #### L 100.0010 #### ML - LABORATORY [address] [place] [address] 44937 Creatinine [Mass/Vol] 0.61 mg/dL Normal 0.50-0.90 [facility] Comment on above: Performed By: #### L 100.0010 #### ML - LABORATORY [address] [place] [address] 52752 eGFR if AFR RAI > 60 ml/min/1.73m2 [facility] Comment on above: Result Comment: eGFR >= 60 Indicates normal kidney function. * eGFR IS AN ESTIMATE * (AFR RAI = ) (non-AFR AM = NON-) MDRD calculation used in the eGFR should not be used to dose medications. For further limitations of the eGFR please refer to the Physician Website or the National Kidney Disease Education Program website (www.nkdep.nih.gov). Performed By: #### L 100.0010 #### ML [facility] [address] [place] [address] 53844 eGFR nonAFR Rai > 60 ml/Min/1.73m2 Normal [facility] Comment on above: Performed By: #### L 100.0010 #### [facility] [address] [place] [address] 80316 Globulin (S) [Mass/Vol] 2.5 g/dL Normal 1.5-4.5 [facility] Comment on above: Performed By: #### L 100.0010 #### [facility] [address] [place] [address] 72587 Glucose [Mass/Vol] 99 mg/dL Normal 74-106 [facility] Comment on above: Performed By: #### L 100.0010 #### [facility] [address] [place] [address] 98996 Potassium [Moles/Vol] 4.0 mmol/L Normal 3.5-5.0 [facility] Comment on above: Performed By: #### L 100.0010 #### [facility] [address] [place] [address] 53237 Protein [Mass/Vol] 7.1 g/dL Normal 6.4-8.3 [facility] Comment on above: Performed By: #### L 100.0010 #### [facility] [address] [place] [address] 16349 Sodium [Moles/Vol] 139 mmol/L Normal 135-145 [facility] Comment on above: Performed By: #### L 100.0010 #### ML - LABORATORY [address] [place] [address] 44014 Urea nitrogen [Mass/Vol] 13 mg/dL Normal 6-20 [facility] Comment on above: Performed By: #### L 100.0010 #### ML - LABORATORY [address] [place] [address] 79711 Florian 10-10-2018 ALT [Catalytic activity/Vol] 19 U/L Normal 5-33 [facility] Comment on above: Performed By: #### L 304.0140, L100.0250, L304.0470, L100.0010, L100.0240 #### ML - LABORATORY [address] [place] [address] 55979 Christiano 10-10-2018 AST [Catalytic activity/Vol] 15 U/L Normal -32 [facility] Comment on above: Performed By: #### L 304.0140, L100.0250, L304.0470, L100.0010, L100.0240 #### ML - LABORATORY [address] [place] [address] 04696 BMPon 10-10-2018 Anion gap [Moles/Vol] 17.6 mmol/L Normal 15-22 [facility] Comment on above: Performed By: #### L 304.0140, L100.0250, L304.0470, L100.0010, L100.0240 #### - LABORATORY [address] [place] [address] 89432 Calcium [Mass/Vol] 9.5 mg/dL Normal 8.6-10.0 [facility] Comment on above: Performed By: #### L 304.0140, L100.0250, L304.0470, L100.0010, L100.0240 #### ML - LABORATORY [address] [place] [address] 39115 Chloride [Moles/Vol] 97 mmol/L Low 98-107 [facility] Comment on above: Performed By: #### L 304.0140, L100.0250, L304.0470, L100.0010, L100.0240 #### ML - LABORATORY [address] [place] [address] CO2 [Moles/Vol] 29 mmol/L Normal 22-29 [facility] Comment on above: Performed By: #### L 304.0140, L100.0250, L304.0470, L100.0010, L100.0240 #### [facility] [address] [place] [address] 32556 Creatinine [Mass/Vol] 0.57 mg/dL Normal 0.50-0.90 [facility] Comment on above: Performed By: #### L 304.0140, L100.0250, L304.0470, L100.0010, L100.0240 #### [facility] [address] [place] [address] 21392 eGFR if AFR RAI > 60 ml/min/1.73m2 Normal [facility] Comment on above: Result Comment: eGFR >= 60 Indicates normal kidney function. * eGFR IS AN ESTIMATE * (AFR RAI = ) (non-AFR AM = NON-) MDRD calculation used in the eGFR should not be used to dose medications. For further limitations of the eGFR please refer to the Physician Website or the National Kidney Disease Education Program website (www.nkdep.nih.gov). Performed By: #### L 304.0140, L100.0250, L304.0470, L100.0010, L100.0240 #### [facility] [address] [place] [address] eGFR nonAFR Rai > 60 ml/Min/1.73m2 Normal [facility] Comment on above: Performed By: #### L 304.0140, L100.0250, L304.0470, L100.0010, L100.0240 #### [facility] [address] [place] [address] 95065 Glucose [Mass/Vol] 79 mg/dL Normal 74-106 [facility] Comment on above: Performed By: #### L 304.0140, L100.0250, L304.0470, L100.0010, L100.0240 #### - LABORATORY [address] [place] [address] 00979 Potassium [Moles/Vol] 3.6 mmol/L Normal 3.5-5.0 [facility] Comment on above: Performed By: #### L 304.0140, L100.0250, L304.0470, L100.0010, L100.0240 #### [facility] [address] [place] [address] 03998 Sodium [Moles/Vol] 140 mmol/L Normal 135-145 [facility] Comment on above: Performed By: #### L 304.0140, L100.0250, L304.0470, L100.0010, L100.0240 #### [facility] [address] [place] [address] 29461 Urea nitrogen [Mass/Vol] 14 mg/dL Normal 6-20 [facility] Comment on above: Performed By: #### L 304.0140, L100.0250, L304.0470, L100.0010, L100.0240 #### [facility] [address] [place] [address] 94368 TSHon 10-10-2018 TSH Qn 1.82 uIU/mL Normal 0.45-4.50 [facility] Comment on above: Performed By: #### L 304.0140, L100.0250, L304.0470, L100.0010, L100.0240 #### ML - LABORATORY [address] [place] [address] 66059 VITAMIN Don 10-10-2018 VITAMIN D 31.8 ng/mL Normal 30-100 [facility] Comment on above: Performed By: #### L 100.0010 #### - LABORATORY [address] [place] [address] 59487 Florian 06-19-2018 ALT [Catalytic activity/Vol] 38 U/L High 5-33 [facility] Comment on above: Performed By: #### L 304.0140, L100.0250, L304.0470, L100.0240 #### ML - LABORATORY [address] [place] [address] 90710 Christiano 06-19-2018 AST [Catalytic activity/Vol] 22 U/L Normal 5-32 [facility] Comment on above: Performed By: #### L 304.0140, L100.0250, L304.0470, L100.0240 #### ML - LABORATORY [address] [place] [address] 79437 BMPon 06-19-2018 Anion gap [Moles/Vol] 17.5 mmol/L Normal 15- [facility] Comment on above: Performed By: #### L 100.0010 #### ML [facility] [address] [place] [address] 22398 Calcium [Mass/Vol] 9.6 mg/dL Normal 8.6-10.0 [facility] Comment on above: Performed By: #### L 100.0010 #### ML - LABORATORY [address] [place] [address] 36534 Chloride [Moles/Vol] 98 mmol/L Normal 98-107 [facility] Comment on above: Performed By: #### L 100.0010 #### ML [facility] [address] [place] [address] 00721 CO2 [Moles/Vol] 29 mmol/L Normal 22-29 [facility] Comment on above: Performed By: #### L 100.0010 #### ML - LABORATORY [address] [place] [address] 89128 Creatinine [Mass/Vol] 0.71 mg/dL Normal 0.50-0.90 [facility] Comment on above: Performed By: #### L 100.0010 #### ML - LABORATORY [address] [place] [address] 22388 eGFR if AFR RAI > 60 ml/min/1.73m2 Normal [facility] Comment on above: Result Comment: eGFR >= 60 Indicates normal kidney function. * eGFR IS AN ESTIMATE * (AFR RAI = ) (non-AFR AM = NON-) MDRD calculation used in the eGFR should not be used to dose medications. For further limitations of the eGFR please refer to the Physician Website or the National Kidney Disease Education Program website (www.nkdep.nih.gov). Performed By: #### L 100.0010 #### ML [facility] [address] [place] [address] 35380 eGFR nonAFR Rai > 60 ml/Min/1.73m2 [facility] Comment on above: Performed By: #### L 100.0010 #### ML [facility] [address] [place] [address] 30801 Glucose [Mass/Vol] 93 mg/dL Normal 74-106 [facility] Comment on above: Performed By: #### L 100.0010 #### ML [facility] [address] [place] [address] 89563 Potassium [Moles/Vol] 3.5 mmol/L Normal 3.5-5.0 [facility] Comment on above: Performed By: #### L 100.0010 #### ML [facility] [address] [place] [address] 91034 Sodium [Moles/Vol] 141 mmol/L Normal 135-145 [facility] Comment on above: Performed By: #### L 100.0010 #### ML [facility] [address] [place] [address] 45282 Urea nitrogen [Mass/Vol] 10 mg/dL Normal 6-20 [facility] Comment on above: Performed By: #### L 100.0010 #### ML [facility] [address] [place] [address] 99766 LIPID PANELon 06-19-2018 Cholesterol [Mass/Vol] 191 mg/dL Normal 130-200 [facility] Comment on above: Performed By: #### L 100.0040 #### ML - LABORATORY [address] [place] [address] 06021 Cholesterol in HDL [Mass/Vol] 48 mg/dL Normal [facility] Comment on above: Result Comment: Chanelle onal Cholesterol Education Program (NCEP) guidelines: <40 mg/dL: Low HDL-Cholesterol(major risk factor for CHD) > or = 60 mg/dL: High HDL-Cholesterol(negative risk factor for CHD) HDL-cholesterol is affected by a number of factors, e.g., smoking, exercise, hormones, sex, and age. 4th Generation Test; Results may be approximately 7% lower than previous values. Performed By: #### L 100.0040 #### ML - LABORATORY [address] [place] [address] 82006 Cholesterol in LDL [Mass/Vol] 120 mg/dL Normal [facility] Comment on above: Result Comment: LDL: OPTIMAL FOR PEOPLE AT VERY HIGH RISK <70 OPTIMAL <100 NEAR OPTIMAL 100-129 BORDERLINE HIGH 130-159 HIGH 160-189 VERY HIGH >=190 Source: 2009 NCEP ATP III, ADA Guidelines Reviewed: October, Performed By: #### L 100.0040 #### ML - LABORATORY [address] [place] [address] 57007 Cholesterol in LDL/Cholesterol in HDL [Mass ratio] 2.5 Normal [facility] Comment on above: Performed By: #### L 100.0040 #### ML - LABORATORY [address] [place] [address] 52265 Cholesterol in VLDL [Mass/Vol] 23 mg/dL Normal 6-40 [facility] Comment on above: Performed By: #### L 100.0040 #### ML - LABORATORY [address] [place] [address] 48914 Triglyceride [Mass/Vol] 113 mg/dL Normal [facility] Comment on above: Result Comment: TRIG : DESIRABLE: <150 mg/dL Performed By: #### L 100.0040 #### ML - LABORATORY [address] [place] [address] 30542 TSHon 06-19-2018 TSH Qn 1.74 uIU/mL Normal 0.45-4.50 [facility] Comment on above: Performed By: #### L 304.0140, L100.0250, L304.0470, L100.0240 #### ML - LABORATORY [address] [place] [address] VITAMIN Don 06-19-2018 VITAMIN D 30.0 ng/mL Normal 30-100 [facility] Comment on above: Performed By: #### L 304.0140, L100.0250, L304.0470, L100.0240 #### ML - LABORATORY [address] [place] [address] 96999 TSCon 07-28-2017 [facility] DATE OF SERVICE: 07/28/2017CHIEF COMPLAINT: Cough, chest tightness, dry cough, shortness of breath.A 52-year-old female presented here with history of pneumonia going on for 2 or 3days. A lot of congestion and pressure. No other complaint.DRUG ALLERGIES: FLAGYL.MEDICATIONS:1. Levothyroxine.2. Hydrochlorothiazide.3. Mucinex.PHYSICAL EXAMINATION:Vital Signs: Blood pressure is 145/87, pulse is 89, respiratory rate is 16,temperature is 98.9, pulse oximetry 98%. Pain is 3/10.HEENT: Tympanic membranes bilaterally with clear type effusion. Pharynx is clear.Neck: Supple.Lungs: Within normal limits.Heart: Within normal limits.ASSESSMENT: Acute sinusitis.PLAN: Discussed with the patient treatments and plan. Placed the patient on aZ-[place], take as prescribed, Capmist DM 1 tablet p.o. t.i.d. Have the patient followup as needed. Treatments and plan were thoroughly discussed. ____JOBY Bill/[id number]: 07/28/2017 14:42DT: 07/29/2017 14:43SSI File#: [id number] #: [id number]/Reviewed by08/03/17 Jus6 [facility] PATIENT NAME: MILAD LILLY Marleny Painter MEDICAL REC #: [id number], [place] [address] STATCARE REPORT STATCARE PHYSICIAN Normal [facility] REJI STATCARE REPORT [facility] SURGICAL PATHOLOGY, CONVERTE Don 07-12-2007 [facility] CYTOLOGY MOTOR VEHICLE TECHNICIAN, CONVERTEDon [facility] Vital Signs Date Time Vital Sign Value Performing Clinician Jabari shaikh 12-13-2024 09:59-0400 Body mass index (BMI) [Ratio] 39.14 kg/m2 Radha Roberts APRN-SERVICE ADMINISTRATOR Work Phone: [facility] 12-13-2024 09:59-0400 Body temperature 97.81 [degF] Radha Roberts [employer]ONSTRATION AGENT-CN P Work Phone: [facility] 12-13-2024 09:59-0400 Body weight 106.69 kg Radha Roberts [employer]ATION AGENT-CN P Work Phone: [facility] 12-13-2024 09:59-0400 Diastolic blood pressure 85 mm[Hg] Radha Roberts [employer]ONSTRATION AGENT-SERVICE ADMINISTRATOR Work Phone: [facility] 12-13-2024 09:59-0400 Heart rate 66 /min Radha Roberts [employer]ONSTRATION AGENT-CN P Work Phone: [facility] 12-13-2024 09:59-0400 Respiratory rate 16 /min Radha Roberts [employer]ONSTRATION AGENT-CN P Work Phone: [facility] 12-13-2024 09:59-0400 SaO2% (BldA) [Mass fraction] 100 % Radha Roberts APRN-SERVICE ADMINISTRATOR Work Phone: [facility] 12-13-2024 09:59-0400 Systolic blood pressure 123 mm[Hg] Radha Roberts [employer]ONSTRATION AGENT-SERVICE ADMINISTRATOR Work Phone: [facility] 12-02-2024 09:33-0400 Body height 165.[address] Emperatriz Jordan MD Work Phone: [facility] 12-02-2024 09:33-0400 Body mass index (BMI) [Ratio] 40.4 kg/m2 Dr. Emperatriz Jordan MD Work Phone: [facility] 12-02-2024 09:33-0400 Body temperature 98.2 [degF] Dr. Emperatriz Jordan MD Work Phone: [facility] 12-02-2024 09:33-0400 Body weight 110.[address] Emperatriz Jordan MD Work Phone: [facility] 12-02-2024 09:33-0400 Diastolic blood pressure 74 mm[Hg] Dr. Emperatriz Jordan MD Work Phone: [facility] 12-02-2024 09:33-0400 Heart rate 78 /min Dr. Emperatriz Jordan MD Work Phone: [facility] 12-02-2024 09:33-0400 Respiratory rate 15 /min Dr. Emperatriz Jordan MD Work Phone: [facility] 12-02-2024 09:33-0400 SaO2% (BldA) [Mass fraction] 98 % Dr. Emperatriz Jordan MD Work Phone: [facility] 12-02-2024 09:33-0400 Systolic blood pressure 136 mm[Hg] Dr. Emperatriz Jordan MD Work Phone: [facility] 11-26-2024 12:00-0400 Diastolic blood pressure 52 mm[Hg] Interventional Ihisschedule Work Phone: [facility] 11-26-2024 12:00-0400 Heart rate 71 /min Interventional Ihisschedule Work Phone: [facility] 11-26-2024 12:00-0400 Respiratory rate 14 /min Interventional Ihisschedule Work Phone: [facility] 11-26-2024 12:00-0400 SaO2% (BldA) [Mass fraction] 98 % Interventional Ihisschedule Work Phone: [facility] 11-26-2024 12:00-0400 Systolic blood pressure 109 mm[Hg] Interventional Ihisschedule Work Phone: [facility] 11-26-2024 11:50-0400 Body temperature 97.5 [degF] Interventional Ihisschedule Work Phone: [facility] 11-26-2024 08:40-0400 Body height 165.1 cm Interventional Ihisschedule Work Phone: [facility] 11-26-2024 08:40-0400 Body mass index (BMI) [Ratio] 40.35 kg/m2 Interventional Ihisschedule Work Phone: [facility] 11-26-2024 08:40-0400 Body weight 110 kg Interventional Ihisschedule Work Phone: [facility] 11-08-2024 09:09-0400 Body height 165.1 cm Lucio Joseph MD Work Phone: [facility] 11-08-2024 09:09-0400 Body mass index (BMI) [Ratio] 39.54 kg/m2 Lucio Joseph MD Work Phone: [facility] 11-08-2024 09:09-0400 Body temperature 97.59 [degF] Lucio Joseph MD Work Phone: [facility] 11-08-2024 09:09-0400 Body weight 107.78 kg Lucio Joseph MD Work Phone: [facility] 11-08-2024 09:09-0400 Diastolic blood pressure 66 mm[Hg] Lucio Joseph MD Work Phone: [facility] 11-08-2024 09:09-0400 Heart rate 66 /min Lucio Joseph MD Work Phone: [phone] [place] [address] 11-08-2024 09:09-0400 Respiratory rate 18 /min Lucio Joseph MD Work Phone: 8(023)808-572762 [place] [address] 11-08-2024 09:09-0400 SaO2% (BldA) [Mass fraction] 99 % Lucio Joseph MD Work Phone: 3(776)111-952262 [place] [address] 11-08-2024 09:09-0400 Systolic blood pressure 137 mm[Hg] Lucio Joseph MD Work Phone: 1(793)667-772762 [place] [address] 11-04-2024 15:07-0400 Body mass index (BMI) [Ratio] 39.7 kg/m2 Dr. Emperatriz Jordan MD Work Phone: [facility] 11-04-2024 15:07-0400 Body temperature 97.2 [degF] Dr. Emperatriz Jordan MD Work Phone: [facility] 11-04-2024 15:07-0400 Body weight 108.[address] Emperatriz Jordan MD Work Phone: [facility] 11-04-2024 15:07-0400 Heart rate 76 /min Dr. Emperatriz Jordan MD Work Phone: [facility] 11-04-2024 15:07-0400 Respiratory rate 18 /min Dr. Emperatriz Jordan MD Work Phone: [facility] 11-04-2024 15:07-0400 SaO2% (BldA) [Mass fraction] 94 % Dr. Emperatriz Jordan MD Work Phone: [facility] 10-31-2024 14:59-0400 Body mass index (BMI) [Ratio] 39.8 kg/m2 Dr. Emperatriz Jordan MD Work Phone: [facility] 10-31-2024 14:59-0400 Body temperature 97.6 [degF] Dr. Emperatriz Jordan MD Work Phone: [facility] 10-31-2024 14:59-0400 Body weight 108.[address] Emperatriz Jordan MD Work Phone: 9(975)049-318614 [place] [address] 10-31-2024 14:59-0400 Diastolic blood pressure 94 mm[Hg] Dr. Emperatriz Jordan MD Work Phone: [facility] 10-31-2024 14:59-0400 Heart rate 69 /min Dr. Emperatriz Jordan MD Work Phone: [facility] 10-31-2024 14:59-0400 Respiratory rate 16 /min Dr. Emperatriz Jordan MD Work Phone: [facility] 10-31-2024 14:59-0400 SaO2% (BldA) [Mass fraction] 99 % Dr. Emperatriz Jordan MD Work Phone: [facility] 10-31-2024 14:59-0400 Systolic blood pressure 153 mm[Hg] Dr. Emperatriz Jordan MD Work Phone: [facility] 10-24-2024 14:55-0400 Body mass index (BMI) [Ratio] 39.7 kg/m2 Dr. Emperatriz Jordan MD Work Phone: [facility] 10-24-2024 14:55-0400 Body temperature 97.6 [degF] Dr. Emperatriz Jordan MD Work Phone: [facility] 10-24-2024 14:55-0400 Body weight 108.[address] Emperatriz Jordan MD Work Phone: [facility] 10-24-2024 14:55-0400 Diastolic blood pressure 93 mm[Hg] Dr. Emperatriz Jordan MD Work Phone: [facility] 10-24-2024 14:55-0400 Heart rate 73 /min Dr. Emperatriz Jordan MD Work Phone: [facility] 10-24-2024 14:55-0400 Respiratory rate 18 /min Dr. Emperatriz Jordan MD Work Phone: [facility] 10-24-2024 14:55-0400 SaO2% (BldA) [Mass fraction] 99 % Dr. Emperatriz Jordan MD Work Phone: [facility] 10-24-2024 14:55-0400 Systolic blood pressure 149 mm[Hg] Dr. Emperatriz Jordan MD Work Phone: [facility] 10-17-2024 14:54-0400 Body mass index (BMI) [Ratio] 39.3 kg/m2 Dr. Emperatriz Jordan MD Work Phone: [facility] 10-17-2024 14:54-0400 Body temperature 97.7 [degF] Dr. Emperatriz Jordan MD Work Phone: [facility] 10-17-2024 14:54-0400 Body weight 107.[address] Emperatriz Jordan MD Work Phone: [facility] 10-17-2024 14:54-0400 Diastolic blood pressure 93 mm[Hg] Dr. Emperatriz Jordan MD Work Phone: [facility] 10-17-2024 14:54-0400 Heart rate 66 /min Dr. Emperatriz Jordan MD Work Phone: [facility] 10-17-2024 14:54-0400 Respiratory rate 16 /min Dr. Emperatriz Jordan MD Work Phone: [facility] 10-17-2024 14:54-0400 SaO2% (BldA) [Mass fraction] 99 % Dr. Emperatriz Jordan MD Work Phone: [facility] 10-17-2024 14:54-0400 Systolic blood pressure 155 mm[Hg] Dr. Emperatriz Jordan MD Work Phone: [facility] 10-09-2024 15:11-0400 Body mass index (BMI) [Ratio] 39.9 kg/m2 Dr. Emperatriz Jordan MD Work Phone: [facility] 10-09-2024 15:11-0400 Body temperature 98 [degF] Dr. Emperatriz Jordan MD Work Phone: [facility] 10-09-2024 15:11-0400 Body weight 108.[address] Emperatriz Jordan MD Work Phone: [facility] 10-09-2024 15:11-0400 Diastolic blood pressure 89 mm[Hg] Dr. Emperatriz Jordan MD Work Phone: [facility] 10-09-2024 15:11-0400 Heart rate 73 /min Dr. Emperatriz Jordan MD Work Phone: [facility] 10-09-2024 15:11-0400 Respiratory rate 16 /min Dr. Emperatriz Jordan MD Work Phone: [facility] 10-09-2024 15:11-0400 SaO2% (BldA) [Mass fraction] 98 % Dr. Emperatriz Jordan MD Work Phone: [facility] 10-09-2024 15:11-0400 Systolic blood pressure 143 mm[Hg] Dr. Emperatriz Jordan MD Work Phone: [facility] 10-02-2024 15:16-0400 Body height 165.[address] Emperatriz Jordan MD Work Phone: [facility] 10-02-2024 15:16-0400 Body mass index (BMI) [Ratio] 39.5 kg/m2 Dr. Emperatriz Jordan MD Work Phone: [facility] 10-02-2024 15:16-0400 Body temperature 97.1 [degF] Dr. Emperatriz Jordan MD Work Phone: [facility] 10-02-2024 15:16-0400 Body weight 107.[address] Emperatriz Jordan MD Work Phone: [facility] 10-02-2024 15:16-0400 Diastolic blood pressure 87 mm[Hg] Dr. Emperatriz Jordan MD Work Phone: [facility] 10-02-2024 15:16-0400 Heart rate 75 /min Dr. Emperatriz Jordan MD Work Phone: [facility] 10-02-2024 15:16-0400 Respiratory rate 18 /min Dr. Emperatriz Jordan MD Work Phone: [facility] 10-02-2024 15:16-0400 SaO2% (BldA) [Mass fraction] 98 % Dr. Emperatriz Jordan MD Work Phone: [facility] 10-02-2024 15:16-0400 Systolic blood pressure 139 mm[Hg] Dr. Emperatriz Jordan MD Work Phone: [facility] 09-26-2024 15:00-0400 Body mass index (BMI) [Ratio] 39.5 kg/m2 Dr. Emperatriz Jordan MD Work Phone: [facility] 09-26-2024 15:00-0400 Body temperature 98 [degF] Dr. Emperatriz Jordan MD Work Phone: [facility] 09-26-2024 15:00-0400 Body weight 107.[address] Emperatriz Jordan MD Work Phone: [facility] 09-26-2024 15:00-0400 Diastolic blood pressure 90 mm[Hg] Dr. Emperatriz Jordan MD Work Phone: [facility] 09-26-2024 15:00-0400 Heart rate 79 /min Dr. Emperatriz Jordan MD Work Phone: [facility] 09-26-2024 15:00-0400 Respiratory rate 18 /min Dr. Emperatriz Jordan MD Work Phone: [facility] 09-26-2024 15:00-0400 SaO2% (BldA) [Mass fraction] 97 % Dr. Emperatriz Jordan MD Work Phone: [facility] 09-26-2024 15:00-0400 Systolic blood pressure 143 mm[Hg] Dr. Emperatriz Jordan MD Work Phone: [facility] 09-02-2024 09:04-0500 Body mass index (BMI) [Ratio] 39.5 kg/m2 Dr. Emperatriz Jordan MD Work Phone: [facility] 09-02-2024 09:04-0500 Body temperature 98.3 [degF] Dr. Emperatriz Jordan MD Work Phone: [facility] 09-02-2024 09:04-0500 Body weight 107.[address] Emperatriz Jordan MD Work Phone: [facility] 09-02-2024 09:04-0500 Diastolic blood pressure 80 mm[Hg] Dr. Emperatriz Jordan MD Work Phone: [facility] 09-02-2024 09:04-0500 Heart rate 76 /min Dr. Emperatriz Jordan MD Work Phone: [facility] 09-02-2024 09:04-0500 Respiratory rate 18 /min Dr. Emperatriz Jordan MD Work Phone: [facility] 09-02-2024 09:04-0500 SaO2% (BldA) [Mass fraction] 95 % Dr. Emperatriz Jordan MD Work Phone: [facility] 09-02-2024 09:04-0500 Systolic blood pressure 140 mm[Hg] Dr. Emperatriz Jordan MD Work Phone: [facility] 08-22-2024 09:53-0500 Body mass index (BMI) [Ratio] 39.71 kg/m2 Leonila An MD Work Phone: 2(937)186-910804 [address] 08-22-2024 09:53-0500 Body temperature 97.5 [degF] Leonila An MD Work Phone: 4(748)453-348204 [address] 08-22-2024 09:53-0500 Body weight 108.23 kg Leonila An MD Work Phone: 5(339)129-166204 [address] 08-22-2024 09:53-0500 Diastolic blood pressure 92 mm[Hg] Leonila An MD Work Phone: [facility] 08-22-2024 09:53-0500 Heart rate 70 /min Leonila An MD Work Phone: [facility] 08-22-2024 09:53-0500 Systolic blood pressure 152 mm[Hg] Leonila An MD Work Phone: [facility] 08-09-2024 14:30-0500 Diastolic blood pressure 60 mm[Hg] Leonila An MD Work Phone: [facility] 08-09-2024 14:30-0500 Heart rate 69 /min Leonila An MD Work Phone: [facility] 08-09-2024 14:30-0500 Respiratory rate 16 /min Leonila An MD Work Phone: 6(932)353-619004 [address] 08-09-2024 14:30-0500 SaO2% (BldA) [Mass fraction] 95 % Leonila An MD Work Phone: 6(653)838-175166 [place] [address] 08-09-2024 14:30-0500 Systolic blood pressure 128 mm[Hg] Leonila An MD Work Phone: 2(864)300-835266 [place] [address] 08-09-2024 14:12-0500 Body temperature 98.71 [degF] Leonila An MD Work Phone: 4(730)714-509666 [place] [address] 08-09-2024 08:24-0500 Body height 165.1 cm Leonila An MD Work Phone: 2(796)495-743666 [place] [address] 08-09-2024 08:24-0500 Body mass index (BMI) [Ratio] 39.71 kg/m2 Leonila An MD Work Phone: 6(428)635-879566 [place] [address] 08-09-2024 08:24-0500 Body weight 108.23 kg Leonila An MD Work Phone: 7(987)663-434966 [place] [address] 08-08-2024 15:48-0500 Body temperature 97.2 [degF] Leonila An MD Work Phone: 4(936)323-329766 [place] [address] 08-08-2024 15:48-0500 Diastolic blood pressure 70 mm[Hg] Leonila An MD Work Phone: 2(573)639-764266 [place] [address] 08-08-2024 15:48-0500 Heart rate 72 /min Leonila An MD Work Phone: 3(616)041-333166 [place] [address] 08-08-2024 15:48-0500 Systolic blood pressure 143 mm[Hg] Leonila An MD Work Phone: 1(909)002-321666 [place] [address] 08-08-2024 14:52-0500 Body temperature 97.9 [degF] Leonila An MD Work Phone: 9(525)414-217966 [place] [address] 08-08-2024 14:52-0500 Diastolic blood pressure 76 mm[Hg] Leonila An MD Work Phone: [facility] 08-08-2024 14:52-0500 Heart rate 75 /min Leonila An MD Work Phone: 9(238)608-978898 [place] [address] 08-08-2024 14:52-0500 Systolic blood pressure 130 mm[Hg] Leonila An MD Work Phone: 9(754)143-506198 [place] [address] 07-15-2024 10:11-0500 Body mass index (BMI) [Ratio] 41 kg/m2 Leonila An MD Work Phone: 9(573)567-352666 [place] [address] 07-15-2024 10:11-0500 Body temperature 97.5 [degF] Leonila An MD Work Phone: 6(984)557-227966 [place] [address] 07-15-2024 10:11-0500 Body weight 111.77 kg Leonila An MD Work Phone: 6(752)215-194666 [place] [address] 07-15-2024 10:11-0500 Diastolic blood pressure 79 mm[Hg] Leonila An MD Work Phone: 7(693)644-040166 [place] [address] 07-15-2024 10:11-0500 Heart rate 83 /min Leonila An MD Work Phone: 7(077)594-906104 [address] 07-15-2024 10:11-0500 Systolic blood pressure 164 mm[Hg] Leonila An MD Work Phone: 4(654)550-572798 [place] [address] 07-11-2024 09:01-0500 Body mass index (BMI) [Ratio] 41.07 kg/m2 Liz Rivers RN [facility] 07-11-2024 09:01-0500 Body temperature 97.5 [degF] Liz Rivers RN [facility] 07-11-2024 09:01-0500 Body weight 111.95 kg Liz Rivers RN [facility] 07-11-2024 09:01-0500 Diastolic blood pressure 72 mm[Hg] Liz Bryantser RN [facility] 07-11-2024 09:01-0500 Heart rate 68 /min Liz Rivers RN [facility] 07-11-2024 09:01-0500 Respiratory rate 16 /min Liz Rivers RN [facility] 07-11-2024 09:01-0500 SaO2% (BldA) [Mass fraction] 100 % Liz Rivers RN [facility] 07-11-2024 09:01-0500 Systolic blood pressure 158 mm[Hg] Liz Rivers RN [facility] 07-05-2024 14:19-0500 Body height 165.1 cm Evelyn Handy RN [facility] 07-05-2024 14:19-0500 Body mass index (BMI) [Ratio] 41.34 kg/m2 Evelyn Handy RN [facility] 07-05-2024 14:19-0500 Body temperature 97.7 [degF] Evelyn Handy RN [facility] 07-05-2024 14:19-0500 Body weight 112.67 kg Evelyn Handy RN [facility] 07-05-2024 14:19-0500 Diastolic blood pressure 67 mm[Hg] Evelyn Handy RN [facility] 07-05-2024 14:19-0500 Heart rate 77 /min Evelyn Handy RN [facility] 07-05-2024 14:19-0500 Respiratory rate 16 /min Evelyn Handy RN [facility] 07-05-2024 14:19-0500 SaO2% (BldA) [Mass fraction] 98 % Evelyn Handy RN [facility] 07-05-2024 14:19-0500 Systolic blood pressure 153 mm[Hg] Evelyn Handy RN [facility] 06-28-2024 10:13-0500 Body mass index (BMI) [Ratio] 40.72 kg/m2 Lucio Joseph MD Work Phone: [facility] 06-28-2024 10:13-0500 Body temperature 98.01 [degF] Lucio Joseph MD Work Phone: [facility] 06-28-2024 10:13-0500 Body weight 111 kg Lucio Joseph MD Work Phone: 8(814)556-747562 [place] [address] 06-28-2024 10:13-0500 Diastolic blood pressure 75 mm[Hg] Lucio Joseph MD Work Phone: 3(192)649-926762 [place] [address] 06-28-2024 10:13-0500 Heart rate 69 /min Lucio Joseph MD Work Phone: 1(432)120-734362 [place] [address] 06-28-2024 10:13-0500 Respiratory rate 18 /min Lucio Joseph MD Work Phone: 0(418)321-954662 [place] [address] 06-28-2024 10:13-0500 SaO2% (BldA) [Mass fraction] 100 % Lucio Joseph MD Work Phone: [facility] 06-28-2024 10:13-0500 Systolic blood pressure 140 mm[Hg] uLcio Joseph MD Work Phone: [facility] 06-21-2024 08:03-0500 Body mass index (BMI) [Ratio] 40.54 kg/m2 Carlie Jackie RN [facility] 06-21-2024 08:03-0500 Body temperature 98.01 [degF] Carlie Jackie RN [facility] 06-21-2024 08:03-0500 Body weight 110.5 kg Carlie Jackie RN [facility] 06-21-2024 08:03-0500 Diastolic blood pressure 74 mm[Hg] Carlie Jackie RN [facility] 06-21-2024 08:03-0500 Heart rate 66 /min Carlie Jackie RN [facility] 06-21-2024 08:03-0500 Respiratory rate 18 /min Carlie Jackie RN [facility] 06-21-2024 08:03-0500 SaO2% (BldA) [Mass fraction] 99 % Carlie Jackie RN [facility] 06-21-2024 08:03-0500 Systolic blood pressure 155 mm[Hg] Carlie Mejia RN [facility] 06-14-2024 13:59-0500 Body mass index (BMI) [Ratio] 40.47 kg/m2 Kathe Mast RN [facility] 06-14-2024 13:59-0500 Body temperature 98.01 [degF] Kathe Mast RN [facility] 06-14-2024 13:59-0500 Body weight 110.31 kg Kathe Mast RN [facility] 06-14-2024 13:59-0500 Diastolic blood pressure 67 mm[Hg] Kathe Mast RN [facility] 06-14-2024 13:59-0500 Heart rate 77 /min Kathe Mast RN [facility] 06-14-2024 13:59-0500 Respiratory rate 18 /min Kathe Mast RN [facility] 06-14-2024 13:59-0500 SaO2% (BldA) [Mass fraction] 96 % Kathe Mast RN [facility] 06-14-2024 13:59-0500 Systolic blood pressure 150 mm[Hg] Kathe Mast RN [facility] 06-14-2024 10:54-0500 Body height 165.1 cm Lucio Joseph MD Work Phone: [facility] 06-14-2024 10:54-0500 Body mass index (BMI) [Ratio] 41.1 kg/m2 Lucio Joseph MD Work Phone: [facility] 06-14-2024 10:54-0500 Body weight 112.04 kg Lucio Joseph MD Work Phone: [facility] 06-14-2024 10:54-0500 Diastolic blood pressure 79 mm[Hg] Lucio Joseph MD Work Phone: 6(061)538-316725 [place] [address] 06-14-2024 10:54-0500 Heart rate 68 /min Lucio Joseph MD Work Phone: 1(148)676-810762 [place] [address] 06-14-2024 10:54-0500 Systolic blood pressure 131 mm[Hg] Lucio Joseph MD Work Phone: 2(715)706-777962 [place] [address] 06-04-2024 10:28-0500 Body mass index (BMI) [Ratio] 41.17 kg/m2 Lucio Joseph MD Work Phone: 7(768)612-888562 [place] [address] 06-04-2024 10:28-0500 Body temperature 98.1 [degF] Lucio Joseph MD Work Phone: 5(301)310-984462 [place] [address] 06-04-2024 10:28-0500 Body weight 112.22 kg Lucio Joseph MD Work Phone: 4(538)653-218962 [place] [address] 06-04-2024 10:28-0500 Diastolic blood pressure 69 mm[Hg] Lucio Joseph MD Work Phone: 1(892)657-748262 [place] [address] 06-04-2024 10:28-0500 Heart rate 68 /min Lucio Joseph MD Work Phone: 7(544)205-966962 [place] [address] 06-04-2024 10:28-0500 Respiratory rate 18 /min Lucio Joseph MD Work Phone: 6(057)842-434962 [place] [address] 06-04-2024 10:28-0500 SaO2% (BldA) [Mass fraction] 100 % Lucio Jsoeph MD Work Phone: 1(522)546-740462 [place] [address] 06-04-2024 10:28-0500 Systolic blood pressure 141 mm[Hg] Lucio Joseph MD Work Phone: 8(576)145-607062 [place] [address] 05-24-2024 08:46-0500 Body mass index (BMI) [Ratio] 39.87 kg/m2 Carlie Mejia RN [facility] 05-24-2024 08:46-0500 Body temperature 97 [degF] Carlie Mejia RN [facility] 05-24-2024 08:46-0500 Body weight 108.68 kg Carlie Jackie RN [facility] 05-24-2024 08:46-0500 Diastolic blood pressure 67 mm[Hg] Carlie Mejia RN [facility] 05-24-2024 08:46-0500 Heart rate 77 /min Carlie Mejia RN [facility] 05-24-2024 08:46-0500 Respiratory rate 16 /min Carlie Jackie RN [facility] 05-24-2024 08:46-0500 SaO2% (BldA) [Mass fraction] 97 % Carlie Mejia RN [facility] 05-24-2024 08:46-0500 Systolic blood pressure 143 mm[Hg] Carlie Mejia RN [facility] 05-20-2024 10:18-0500 Body mass index (BMI) [Ratio] 39.11 kg/m2 Leonila An MD Work Phone: [facility] 05-20-2024 10:18-0500 Body temperature 97.9 [degF] Leonila An MD Work Phone: [facility] 05-20-2024 10:18-0500 Body weight 106.59 kg Leonila An MD Work Phone: [facility] 05-20-2024 10:18-0500 Diastolic blood pressure 81 mm[Hg] Leonila An MD Work Phone: [facility] 05-20-2024 10:18-0500 Heart rate 78 /min Leonila An MD Work Phone: [facility] 05-20-2024 10:18-0500 Systolic blood pressure 144 mm[Hg] Leonila An MD Work Phone: [facility] 05-17-2024 08:39-0500 Body mass index (BMI) [Ratio] 39.67 kg/m2 Marjorie Marmolejo RN [facility] 05-17-2024 08:39-0500 Body temperature 97.81 [degF] Marjorie Marmolejo RN [facility] 05-17-2024 08:39-0500 Body weight 108.14 kg Marjorie Marmolejo RN [facility] 05-17-2024 08:39-0500 Diastolic blood pressure 70 mm[Hg] Marjorie Marmolejo RN [facility] 05-17-2024 08:39-0500 Heart rate 75 /min Marjorie Marmolejo RN [facility] 05-17-2024 08:39-0500 Respiratory rate 16 /min Marjorie Marmolejo RN [facility] 05-17-2024 08:39-0500 SaO2% (BldA) [Mass fraction] 99 % Marjorie Marmolejo RN [facility] 05-17-2024 08:39-0500 Systolic blood pressure 154 mm[Hg] Marjorie Marmolejo RN [facility] 05-10-2024 08:24-0500 Body mass index (BMI) [Ratio] 39.01 kg/m2 Lucio Joseph MD Work Phone: [facility] 05-10-2024 08:24-0500 Body temperature 97.81 [degF] Lucio Joseph MD Work Phone: [facility] 05-10-2024 08:24-0500 Body weight 106.32 kg Lucio Joseph MD Work Phone: [facility] 05-10-2024 08:24-0500 Diastolic blood pressure 68 mm[Hg] Lucio Joseph MD Work Phone: [facility] 05-10-2024 08:24-0500 Heart rate 68 /min Lucio Joseph MD Work Phone: [facility] 05-10-2024 08:24-0500 Respiratory rate 16 /min Lucio Joseph MD Work Phone: [facility] 05-10-2024 08:24-0500 SaO2% (BldA) [Mass fraction] 99 % Lucio Joseph MD Work Phone: [facility] 05-10-2024 08:24-0500 Systolic blood pressure 138 mm[Hg] Lucio Joseph MD Work Phone: [facility] 05-03-2024 08:57-0400 Body mass index (BMI) [Ratio] 38.77 kg/m2 Zaria Henryry RN [facility] 05-03-2024 08:57-0400 Body temperature 98.1 [degF] Zaria Henryry RN [facility] 05-03-2024 08:57-0400 Body weight 105.69 kg Zaria Henryry RN [facility] 05-03-2024 08:57-0400 Diastolic blood pressure 58 mm[Hg] Zaria Henryry RN [facility] 05-03-2024 08:57-0400 Heart rate 72 /min Zariakaitlynn Henryry RN [facility] 05-03-2024 08:57-0400 Respiratory rate 16 /min Zaria Henryry RN [facility] 05-03-2024 08:57-0400 SaO2% (BldA) [Mass fraction] 97 % Zaira Henryry RN [facility] 05-03-2024 08:57-0400 Systolic blood pressure 123 mm[Hg] Zaria Henryry RN [facility] 04-26-2024 08:41-0400 Body height 165.1 cm Zaria Henryry RN [facility] 04-26-2024 08:41-0400 Body mass index (BMI) [Ratio] 38.47 kg/m2 Zaria Henryry RN [facility] 04-26-2024 08:41-0400 Body temperature 97.81 [degF] Zaria Henryry RN [facility] 04-26-2024 08:41-0400 Body weight 104.87 kg Zaria Cortes RN [facility] 04-26-2024 08:41-0400 Diastolic blood pressure 60 mm[Hg] Zaria Cortes RN [facility] 04-26-2024 08:41-0400 Heart rate 71 /min Zaria Cortes RN [facility] 04-26-2024 08:41-0400 Respiratory rate 18 /min Zaria Cortes RN [facility] 04-26-2024 08:41-0400 SaO2% (BldA) [Mass fraction] 96 % Zaria Cortes RN [facility] 04-26-2024 08:41-0400 Systolic blood pressure 119 mm[Hg] Zaria Cortes RN [facility] 04-19-2024 09:50-0400 Body mass index (BMI) [Ratio] 38.14 kg/m2 Lucio Joseph MD Work Phone: [facility] 04-19-2024 09:50-0400 Body temperature 97.59 [degF] Lucio Joseph MD Work Phone: [facility] 04-19-2024 09:50-0400 Body weight 103.96 kg Lucio Joseph MD Work Phone: [facility] 04-19-2024 09:50-0400 Diastolic blood pressure 60 mm[Hg] Lucio Joseph MD Work Phone: [facility] 04-19-2024 09:50-0400 Heart rate 66 /min Lucio Joseph MD Work Phone: [facility] 04-19-2024 09:50-0400 Respiratory rate 18 /min Lucio Joseph MD Work Phone: [facility] 04-19-2024 09:50-0400 SaO2% (BldA) [Mass fraction] 99 % Lucio Joseph MD Work Phone: [facility] 04-19-2024 09:50-0400 Systolic blood pressure 126 mm[Hg] Lucio Joseph MD Work Phone: [facility] 04-05-2024 10:36-0400 Body mass index (BMI) [Ratio] 37.24 kg/m2 Wayne López [employer]ON[employer]ATION AGENT-SERVICE ADMINISTRATOR Work Phone: [facility] 04-05-2024 10:36-0400 Body temperature 97.39 [degF] Wayne López [employer]-C COUNSELING CENTER DIRECTOR Work Phone: [phone](068)[phone] [address] 04-05-2024 10:36-0400 Body weight 101.52 kg Wayne López [employer]ATION AG[employer]-C COUNSELING CENTER DIRECTOR Work Phone: [phone](803)[phone] [address] 04-05-2024 10:36-0400 Diastolic blood pressure 66 mm[Hg] Wayne López [employer]ON[employer]ATION AGENT-SERVICE ADMINISTRATOR Work Phone: [phone] [address] 04-05-2024 10:36-0400 Heart rate 68 /min Wayne López [employer]ATION AG[employer]-C COUNSELING CENTER DIRECTOR Work Phone: [phone] [address] 04-05-2024 10:36-0400 Respiratory rate 16 /min Wayne López [employer]ATION AGENT-C COUNSELING CENTER DIRECTOR Work Phone: [phone] [address] 04-05-2024 10:36-0400 SaO2% (BldA) [Mass fraction] 100 % Wayne López [employer]ON[employer]ATION AGENT-SERVICE ADMINISTRATOR Work Phone: [facility] 04-05-2024 10:36-0400 Systolic blood pressure 139 mm[Hg] Wayne López [employer]ONSTRATION AGENT-SERVICE ADMINISTRATOR Work Phone: [facility] 03-22-2024 09:12-0400 Body mass index (BMI) [Ratio] 36.61 kg/m2 Lucio Joseph MD Work Phone: [facility] 03-22-2024 09:12-0400 Body temperature 97.81 [degF] Lucio Joseph MD Work Phone: [facility] 03-22-2024 09:12-0400 Body weight 99.79 kg Lucio Joseph MD Work Phone: [facility] 03-22-2024 09:12-0400 Diastolic blood pressure 64 mm[Hg] Lucio Joseph MD Work Phone: [facility] 03-22-2024 09:12-0400 Heart rate 70 /min Lucio Joseph MD Work Phone: [facility] 03-22-2024 09:12-0400 Respiratory rate 16 /min Lucio Joseph MD Work Phone: [facility] 03-22-2024 09:12-0400 SaO2% (BldA) [Mass fraction] 100 % Lucio Joseph MD Work Phone: [facility] 03-22-2024 09:12-0400 Systolic blood pressure 132 mm[Hg] Lucio Joseph MD Work Phone: [facility] 03-08-2024 09:28-0400 Body mass index (BMI) [Ratio] 35.94 kg/m2 Wayne López APRN-SERVICE ADMINISTRATOR Work Phone: [facility] 03-08-2024 09:28-0400 Body temperature 97.5 [degF] Wayne López APRN-Margarito COUNSELING CENTER DIRECTOR Work Phone: [facility] 03-08-2024 09:28-0400 Body weight 97.98 kg Wayne López APRN-Margarito COUNSELING CENTER DIRECTOR Work Phone: [facility] 03-08-2024 09:28-0400 Diastolic blood pressure 98 mm[Hg] Wayne López APRN-SERVICE ADMINISTRATOR Work Phone: [facility] 03-08-2024 09:28-0400 Heart rate 67 /min Wayne López [employer]ENT-C COUNSELING CENTER DIRECTOR Work Phone: [facility] 03-08-2024 09:28-0400 Respiratory rate 18 /min Wayne López APRN-C COUNSELING CENTER DIRECTOR Work Phone: [facility] 03-08-2024 09:28-0400 SaO2% (BldA) [Mass fraction] 97 % Wayne López [employer]ON[employer]ATION AGENT-SERVICE ADMINISTRATOR Work Phone: [facility] 03-08-2024 09:28-0400 Systolic blood pressure 130 mm[Hg] Wayne López [employer]ONSTRATION AGENT-SERVICE ADMINISTRATOR Work Phone: [facility] 02-25-2024 11:41-0400 Diastolic blood pressure 83 mm[Hg] Roel García [employer]ONSTRATION AGENT-SERVICE ADMINISTRATOR Work Phone: [facility] 02-25-2024 11:41-0400 Systolic blood pressure 128 mm[Hg] Roel García [employer]ONSTRATION AGENT-SERVICE ADMINISTRATOR Work Phone: [facility] 02-23-2024 10:06-0400 Body mass index (BMI) [Ratio] 36.04 kg/m2 Wayne López [employer]ON[employer]ATION AGENT-SERVICE ADMINISTRATOR Work Phone: [facility] 02-23-2024 10:06-0400 Body temperature 97.59 [degF] Wayne López APRN-C COUNSELING CENTER DIRECTOR Work Phone: [facility] 02-23-2024 10:06-0400 Body weight 98.25 kg Wayne López APRN-C COUNSELING CENTER DIRECTOR Work Phone: [facility] 02-23-2024 10:06-0400 Diastolic blood pressure 65 mm[Hg] Wayne López [employer]ONSTRATION AGENT-SERVICE ADMINISTRATOR Work Phone: [facility] 02-23-2024 10:06-0400 Heart rate 63 /min Wayne López APRN-C COUNSELING CENTER DIRECTOR Work Phone: [facility] 02-23-2024 10:06-0400 Respiratory rate 16 /min Wayne López [employer]ON[employer]ATION AGENT-C COUNSELING CENTER DIRECTOR Work Phone: [facility] 02-23-2024 10:06-0400 SaO2% (BldA) [Mass fraction] 100 % Wayne Jainley [employer]ON[employer]ATION AGENT-SERVICE ADMINISTRATOR Work Phone: [facility] 02-23-2024 10:06-0400 Systolic blood pressure 138 mm[Hg] Wayne Maribel [employer]ATION AGENT-SERVICE ADMINISTRATOR Work Phone: [facility] 02-21-2024 16:06-0400 Diastolic blood pressure 87 mm[Hg] Chiara Janek [employer]ONSTRATION AGENT-SERVICE ADMINISTRATOR Work Phone: [facility] 02-21-2024 16:06-0400 Heart rate 80 /min Chiara Janek [employer]ONSTRATION AGENT-SERVICE ADMINISTRATOR Work Phone: [facility] 02-21-2024 16:06-0400 Systolic blood pressure 153 mm[Hg] Chiara Janek [employer]ONSTRATION AGENT-SERVICE ADMINISTRATOR Work Phone: [facility] 02-16-2024 11:00-0400 Diastolic blood pressure 60 mm[Hg] Leonila An MD Work Phone: [facility] 02-16-2024 11:00-0400 Heart rate 68 /min Leonila An MD Work Phone: [facility] 02-16-2024 11:00-0400 Respiratory rate 16 /min Leonila An MD Work Phone: [facility] 02-16-2024 11:00-0400 SaO2% (BldA) [Mass fraction] 96 % Leonila An MD Work Phone: [facility] 02-16-2024 11:00-0400 Systolic blood pressure 135 mm[Hg] Leonila An MD Work Phone: [facility] 02-16-2024 10:45-0400 Body temperature 98.49 [degF] Leonila An MD Work Phone: [facility] 02-16-2024 07:03-0400 Body height 165.1 cm Leonila An MD Work Phone: [facility] 02-16-2024 07:03-0400 Body mass index (BMI) [Ratio] 35.94 kg/m2 Leonila An MD Work Phone: [facility] 02-16-2024 07:03-0400 Body weight 97.98 kg Leonila An MD Work Phone: [facility] 02-15-2024 13:18-0400 Body mass index (BMI) [Ratio] 36.11 kg/m2 Taisha Gonzales MD Work Phone: [facility] 02-15-2024 13:18-0400 Body temperature 98.1 [degF] Taisha Gonzales MD Work Phone: [facility] 02-15-2024 13:18-0400 Body weight 98.43 kg Taisha Gonzales MD Work Phone: [facility] 02-15-2024 13:18-0400 Diastolic blood pressure 61 mm[Hg] Taisha Gonzales MD Work Phone: [facility] 02-15-2024 13:18-0400 Heart rate 76 /min Taisha Gonzales MD Work Phone: [facility] 02-15-2024 13:18-0400 Respiratory rate 16 /min Taisha Gonzales MD Work Phone: [facility] 02-15-2024 13:18-0400 SaO2% (BldA) [Mass fraction] 97 % Taisha Gonzales MD Work Phone: [facility] 02-15-2024 13:18-0400 Systolic blood pressure 130 mm[Hg] Taisha Gonzales MD Work Phone: [facility] 02-15-2024 09:21-0400 Body height 165.1 cm Lucio Joseph MD Work Phone: [facility] 02-15-2024 09:21-0400 Body mass index (BMI) [Ratio] 35.45 kg/m2 Lucio Joseph MD Work Phone: [facility] 02-15-2024 09:21-0400 Body weight 96.62 kg Lucio Joseph MD Work Phone: [facility] 02-15-2024 09:21-0400 Diastolic blood pressure 78 mm[Hg] Lucio Joseph MD Work Phone: [facility] 02-15-2024 09:21-0400 Systolic blood pressure 148 mm[Hg] Lucio Joseph MD Work Phone: [facility] 02-13-2024 10:54-0400 Body height 165.1 cm Roel García [employer]ONSTRATION AGENT-CN P Work Phone: [facility] 02-13-2024 10:54-0400 Body mass index (BMI) [Ratio] 35.45 kg/m2 Roel García [employer]ONSTRATION AGENT-SERVICE ADMINISTRATOR Work Phone: [facility] 02-13-2024 10:54-0400 Body weight 96.62 kg Roel García [employer]ONSTRATION AGENT-CN P Work Phone: [facility] 02-13-2024 10:54-0400 Diastolic blood pressure 84 mm[Hg] Roel García [employer] DEMONSTRATION AGENT-SERVICE ADMINISTRATOR Work Phone: [facility] 02-13-2024 10:54-0400 Heart rate 61 /min Roel García [employer]ONSTRATION AGENT-CN P Work Phone: [facility] 02-13-2024 10:54-0400 Systolic blood pressure 148 mm[Hg] Roel García [employer]ONSTRATION AGENT-SERVICE ADMINISTRATOR Work Phone: [facility] 02-13-2024 09:12-0400 Body mass index (BMI) [Ratio] 35.45 kg/m2 Roel García [employer]ONSTRATION AGENT-SERVICE ADMINISTRATOR Work Phone: [facility] 02-13-2024 09:12-0400 Body temperature 97.39 [degF] Roel García [employer] DEMONSTRATION AGENT-CN P Work Phone: [facility] 02-13-2024 09:12-0400 Body weight 96.62 kg Roel García [employer]ONSTRATION AGENT-CN P Work Phone: [facility] 02-13-2024 09:12-0400 Diastolic blood pressure 71 mm[Hg] Roel García [employer] DEMONSTRATION AGENT-SERVICE ADMINISTRATOR Work Phone: [facility] 02-13-2024 09:12-0400 Heart rate 62 /min Roel García [employer] DEMONSTRATION AGENT-CN P Work Phone: [facility] 02-13-2024 09:12-0400 Systolic blood pressure 150 mm[Hg] Roel García [employer]ONSTRATION AGENT-SERVICE ADMINISTRATOR Work Phone: [facility] 02-09-2024 09:42-0400 Body mass index (BMI) [Ratio] 35.79 kg/m2 Lucio Joseph MD Work Phone: [facility] 02-09-2024 09:42-0400 Body temperature 97.3 [degF] Lucio Joseph MD Work Phone: [facility] 02-09-2024 09:42-0400 Body weight 97.57 kg Lucio Joseph MD Work Phone: [facility] 02-09-2024 09:42-0400 Diastolic blood pressure 77 mm[Hg] Lucio Joseph MD Work Phone: [facility] 02-09-2024 09:42-0400 Heart rate 58 /min Lucio Joseph MD Work Phone: [facility] 02-09-2024 09:42-0400 Respiratory rate 16 /min Lucio Joseph MD Work Phone: [facility] 02-09-2024 09:42-0400 SaO2% (BldA) [Mass fraction] 99 % Lucio Joseph MD Work Phone: [facility] 02-09-2024 09:42-0400 Systolic blood pressure 127 mm[Hg] Lucio Joseph MD Work Phone: [facility] 02-08-2024 12:34-0400 Body height 165.1 cm Yenny Rojas MD Work Phone: [facility] 02-08-2024 12:34-0400 Body mass index (BMI) [Ratio] 35.74 kg/m2 Yenny Rojas MD Work Phone: [facility] 02-08-2024 12:34-0400 Body temperature 98.01 [degF] Yenny Rojas MD Work Phone: [facility] 02-08-2024 12:34-0400 Body weight 97.43 kg Yenny Rojas MD Work Phone: [facility] 02-08-2024 12:34-0400 Diastolic blood pressure 78 mm[Hg] Yenny Rojas MD Work Phone: [facility] 02-08-2024 12:34-0400 Heart rate 66 /min Yenny Rojas MD Work Phone: [facility] 02-08-2024 12:34-0400 Respiratory rate 16 /min Yenny Rojas MD Work Phone: [facility] 02-08-2024 12:34-0400 SaO2% (BldA) [Mass fraction] 97 % Yenny Rojas MD Work Phone: [facility] 02-08-2024 12:34-0400 Systolic blood pressure 156 mm[Hg] Yenny Rojas MD Work Phone: [facility] 02-05-2024 09:17-0400 Body height 165 cm Leonila An MD Work Phone: [facility] 02-05-2024 09:17-0400 Body mass index (BMI) [Ratio] 35.65 kg/m2 Leonila An MD Work Phone: [facility] 02-05-2024 09:17-0400 Body temperature 97.39 [degF] Leonila An MD Work Phone: [facility] 02-05-2024 09:17-0400 Body weight 97.07 kg Leonila An MD Work Phone: [facility] 02-05-2024 09:17-0400 Diastolic blood pressure 84 mm[Hg] Leonila An MD Work Phone: [facility] 02-05-2024 09:17-0400 Heart rate 63 /min Leonila An MD Work Phone: [facility] 02-05-2024 09:17-0400 Systolic blood pressure 176 mm[Hg] Leonila An MD Work Phone: [facility] 10-15-2021 08:17-0400 Body temperature 97.4 [degF] MARIA G Kelley NP Work Phone: [facility] Work Phone: 10-15-2021 08:17-0400 Diastolic blood pressure 62 mm[Hg] COUNSELING CENTER DIRECTOR-C Curry Hoobduliatetter COUNSELING CENTER DIRECTOR Work Phone: [facility] Work Phone: 10-15-2021 08:17-0400 Heart rate 62 /min COUNSELING CENTER DIRECTOR-C Curry Hoobduliatetter COUNSELING CENTER DIRECTOR Work Phone: [facility] Work Phone: 10-15-2021 08:17-0400 Respiratory rate 16 /min COUNSELING CENTER DIRECTOR-C Curry Healytetter COUNSELING CENTER DIRECTOR Work Phone: [facility] Work Phone: 10-15-2021 08:17-0400 SaO2% (BldA) [Mass fraction] 99 % COUNSELING CENTER DIRECTOR-C Curry Healytetter COUNSELING CENTER DIRECTOR Work Phone: [facility] Work Phone: 10-15-2021 08:17-0400 Systolic blood pressure 115 mm[Hg] COUNSELING CENTER DIRECTOR-C Curry Healytetter COUNSELING CENTER DIRECTOR Work Phone: [facility] Work Phone: 10-15-2021 06:46-0400 Body height 165.1 cm COUNSELING CENTER DIRECTOR-C Curry Healytetter COUNSELING CENTER DIRECTOR Work Phone: [facility] Work Phone: 10-15-2021 06:46-0400 Body mass index (BMI) [Ratio] 37.8 kg/m2 COUNSELING CENTER DIRECTOR-C Curry Hoobduliatetter COUNSELING CENTER DIRECTOR Work Phone: [facility] Work Phone: 10-15-2021 06:46-0400 Body weight 103.23 kg COUNSELING CENTER DIRECTOR-C Curry Healytetter COUNSELING CENTER DIRECTOR Work Phone: [facility] Work Phone: 09-09-2021 12:23-0500 Body mass index (BMI) [Ratio] 38.6 kg/m2 COUNSELING CENTER DIRECTOR-C Curry Healytetter COUNSELING CENTER DIRECTOR Work Phone: [facility] Work Phone: 09-09-2021 12:23-0500 Body weight 105.23 kg MARIA G Kelley COUNSELING CENTER DIRECTOR Work Phone: [facility] Work Phone: Encounters Encounter Date Encounter Type Care Provider Facility Start: 12-16-2024 End: 12-16-[address] Emperatriz Jordan MD Work Phone: [facility] Work Phone: Start: 12-16-2024 End: 12-16-[address] Emperatriz Jordan MD Work Phone: -[facility] Work Phone: Start: 12-16-2024 End: 12-16-2024 ambulatory Emperatriz Jordan Facility:[facility] Start: 12-13-2024 End: 12-13-2024 Office outpatient visit 40 minutes Radha Roberts [employer]ONSTRATION AGENT-SERVICE ADMINISTRATOR Work Phone: [facility] Comment on above: Malignant neoplasm o f overlapping sites of right breast in female, estrogen receptor positive (Primary Dx); Acute hyponatremia Start: 12-13-2024 End: 12-13-2024 ambulatory Lucio Joseph MD Work Phone: [facility] Comment on above: Malignant neoplasm o f overlapping sites of right breast in female, estrogen receptor positive (Primary Dx); Hyponatremia Start: 12-02-2024 End: 12-02-[address] Thomas Hanson DO [facility] Work Phone: Start: 12-02-2024 End: 12-02-[address] Emperatriz Jordan MD Work Phone: [facility] Work Phone: Start: 11-26-2024 End: 11-26-2024 ambulatory SELF SELF Facility:[facility] Start: 11-26-2024 End: 11-26-2024 Subsequent hospital visit by physician Lexus Lewis Work Phone: Inter[facility] Radiology [facility] Comment on above: Malignant neoplasm o f overlapping sites of right breast in female, estrogen receptor positive Start: 11-08-2024 ambulatory LUCIO JOSEPH Facility: [facility] Start: 11-08-2024 End: 11-08-2024 Subsequent hospital visit by physician Lucio Joseph MD Work Phone: Department of Radiology Comment on above: Arrived Start: 11-08-2024 End: 11-08-2024 Clinical Support Encounter Lucio Joseph MD Work Phone: [facility] Comment on above: Malignant neoplasm o f overlapping sites of right breast in female, estrogen receptor positive (Primary Dx) Malignant neoplasm o f overlapping sites of right breast in female, estrogen receptor positive (Primary Dx); Breast cancer metastasized to axillary lymph node, right Start: 11-08-2024 End: 11-08-2024 Office outpatient visit 40 minutes Lucio Joseph MD Work Phone: [facility] Comment on above: Malignant neoplasm o f overlapping sites of right breast in female, estrogen receptor positive (Primary Dx); Aromatase inhibitor use; Osteopenia after menopause Start: 11-08-2024 ambulatory WAYNE Webber y:[facility] Start: 11-04-[address] Thomas Gregory on DO -Radiation Oncology Start: 11-04-2024 End: 11-04-[address] [facility] Work Phone: Start: 11-04-2024 End: 11-04-2024 ambulatory Thomas Hanson Facility:[facility] Start: 10-31-2024 End: 10-31-[address] [facility] Work Phone: Start: 10-31-2024 End: 10-31-2024 ambulatory Thomas Hanson Facility:[facility] Start: 10-29-2024 ambulatory Thomas Hanson Facility: [facility] Start: 10-29-2024 Non-patient / Non-visit Dr. Thomas merida DO [facility] Start: 10-28-2024 ambulatory [facility] Facility: [facility] Start: 10-28-2024 Non-patient / Non-visit Dr. Thomas merida DO [facility] Start: 10-24-2024 End: 10-24-[address] Thomas Hanson DO [facility] Work Phone: Start: 10-24-2024 End: 10-24-2024 ambulatory [facility] Facility:[facility] Start: 10-17-2024 End: 10-17-[address] Thomas Hanson [facility] Work Phone: Start: 10-17-2024 End: 10-17-2024 ambulatory [facility] Start: 10-09-2024 End: 10-09-[address] Thomas Hanson DO [facility] Work Phone: Start: 10-09-2024 End: 10-09-2024 ambulatory [facility] Facility:[facility] Start: 10-03-2024 End: 10-03-[address] Emperatriz Jordan MD Work Phone: -Medical Out Work Phone: Start: 10-03-2024 End: 10-03-[address] Emperatriz Jordan MD Work Phone: [facility] Work Phone: Start: 10-03-[address] Thomas Gregory on DO -Radiation Oncology Start: 10-02-2024 End: 10-02-[address] Nils Pang MD -[facility] Work Phone: Start: 10-02-2024 End: 10-02-2024 ambulatory [facility] Start: 09-26-2024 End: 09-26-[address] Thomas Hanson DO [facility] Work Phone: Start: 09-26-2024 End: 09-26-2024 ambulatory Thomaskateryna Hanson Facility:[facility] Start: 09-20-2024 ambulatory Thomas Valentin Facility: [facility] Start: 09-20-2024 Non-patient / Non-visit Dr. Thomas merida DO [facility] Start: 09-19-2024 ambulatory Thomas Hanson Facility: [facility] Start: 09-19-2024 Non-patient / Non-visit Dr. Thomas merida DO [facility] Start: 09-10-2024 ambulatory Thomaskateryna Hanson Facility: [facility] Start: 09-10-2024 Non-patient / Non-visit Dr. Thomas merida DO [facility] Start: 09-02-2024 End: 09-02-[address] Thomas Hanson [facility] Work Phone: Start: 09-02-2024 End: 09-02-2024 ambulatory Thomas Hanson Facility:[facility] Start: 08-22-2024 End: 08-22-2024 Postop follow up visit related to original px Leonila An MD Work Phone: Division of Surgical Oncology Comment on above: Malignant neoplasm o f overlapping sites of right breast in female, estrogen receptor positive (Primary Dx); Breast cancer metastasized to axillary lymph node, right Start: 08-22-2024 ambulatory LEONILA AN Facility:[facility] Start: 08-09-2024 End: 08-09-2024 [facility] LEONILA AN [facility] Start: 08-09-2024 End: 08-09-2024 Subsequent hospital visit by physician Leonila An MD Work Phone: Peri[facility] Services [facility] Comment on above: S/P breast lumpectom y Arrived Start: 08-09-2024 ambulatory LEONILA AN Facility:[facility] Start: 08-09-2024 End: 08-09-2024 Subsequent hospital visit by physician Leonila An MD Work Phone: Mammography at [facility] Comment on above: Arrived Start: 08-08-2024 ambulatory LEONILA AN Facility:[facility] Start: 08-08-2024 End: 08-09-2024 Subsequent hospital visit by physician Leonila An MD Work Phone: [facility] Comment on above: Arrived Start: 07-29-2024 ambulatory LEONILA AN Facility:[facility] Start: 07-15-2024 ambulatory LEONILA AN Facility:[facility] Start: 07-15-2024 End: 07-15-2024 Office outpatient visit 25 minutes Leonila An MD Work Phone: Division of Surgical Oncology Comment on above: Breast cancer metast asized to axillary lymph node, right (Primary Dx); Malignant neoplasm of overlapping sites of right breast in female, estrogen receptor positive Start: 07-15-2024 ambulatory LEONILA AN Facility:[facility] Start: 07-11-2024 End: 07-11-2024 Subsequent hospital visit by physician Theresa PETER Work Phone: Department of Radiology Comment on above: Arrived Start: 07-11-2024 End: 07-11-2024 ambulatory Lucio Joseph MD Work Phone: [facility] Comment on above: Malignant neoplasm o f overlapping sites of right breast in female, estrogen receptor positive (Primary Dx) Start: 07-05-2024 End: 07-05-2024 ambulatory Lucio Joseph MD Work Phone: [facility] Comment on above: Malignant neoplasm o f overlapping sites of right breast in female, estrogen receptor positive (Primary Dx) Start: 06-28-2024 End: 06-28-2024 ambulatory Lucio Joseph MD Work Phone: [facility] Comment on above: Malignant neoplasm o f overlapping sites of right breast in female, estrogen receptor positive (Primary Dx) Start: 06-28-2024 End: 06-28-2024 Office outpatient visit 40 minutes Lucio Joseph MD Work Phone: Medical Oncology at [facility] Comment on above: Malignant neoplasm o f overlapping sites of right breast in female, estrogen receptor positive (Primary Dx); Drug-induced polyneuropathy Start: 06-28-2024 ambulatory LUCIO JOSEPH Facility: [facility] Start: 06-21-2024 End: 06-21-2024 ambulatory Lucio Joseph MD Work Phone: [facility] Comment on above: Malignant neoplasm o f overlapping sites of right breast in female, estrogen receptor positive (Primary Dx) Start: 06-14-2024 End: 06-14-2024 ambulatory Lucio Joseph MD Work Phone: [facility] Comment on above: Malignant neoplasm o f overlapping sites of right breast in female, estrogen receptor positive (Primary Dx) Start: 06-14-2024 End: 06-14-2024 Subsequent hospital visit by physician Lucio Joseph MD Work Phone: [facility] Start: 06-04-2024 End: 06-04-2024 ambulatory Lucio Joseph MD Work Phone: [facility] Comment on above: Malignant neoplasm o f overlapping sites of right breast in female, estrogen receptor positive (Primary Dx) Start: 06-04-2024 End: 06-04-2024 Office outpatient visit 40 minutes Lucio Joseph MD Work Phone: Medical Oncology at [facility] Comment on above: Malignant neoplasm o f overlapping sites of right breast in female, estrogen receptor positive (Primary Dx); Bilateral leg edema Start: 06-04-2024 bessie JOSEPH Facility: [facility] Start: 05-24-2024 End: 05-24-2024 ambulatory Lucio Joseph MD Work Phone: [facility] Comment on above: Malignant neoplasm o f overlapping sites of right breast in female, estrogen receptor positive (Primary Dx) Start: 05-20-2024 End: 05-20-2024 Office outpatient visit 40 minutes Leonila An MD Work Phone: Division of Surgical Oncology Comment on above: Breast cancer metast asized to axillary lymph node, right (Primary Dx) Start: 05-20-2024 ambulatory EMPERATRIZ JORDAN Facility: [facility] Start: 05-17-2024 End: 05-17-2024 Clinical Support Encounter Lucio Joseph MD Work Phone: [facility] Comment on above: Malignant neoplasm o f overlapping sites of right breast in female, estrogen receptor positive (Primary Dx) Start: 05-17-2024 ambulatory LUCIO JOSEPH Facility: [facility] Start: 05-10-2024 End: 05-10-2024 ambulatory Lucio Joseph MD Work Phone: [facility] Comment on above: Malignant neoplasm o f overlapping sites of right breast in female, estrogen receptor positive (Primary Dx) Start: 05-10-2024 End: 05-10-2024 Office outpatient visit 40 minutes Lucio Joseph MD Work Phone: Medical Oncology at [facility] Comment on above: Malignant neoplasm o f overlapping sites of right breast in female, estrogen receptor positive (Primary Dx) Start: 05-10-2024 ambulatory LUCIO JOSEPH Facility: [facility] Start: 05-03-2024 End: 05-03-2024 ambulatory Lucio Joseph MD Work Phone: [facility] Comment on above: Malignant neoplasm o f overlapping sites of right breast in female, estrogen receptor positive (Primary Dx) Start: 04-26-2024 End: 04-26-2024 ambulatory Zaria Cortes RN [facility] Comment on above: Malignant neoplasm o f overlapping sites of right breast in female, estrogen receptor positive (Primary Dx) Start: 04-19-2024 End: 04-19-2024 ambulatory Lucio Joseph MD Work Phone: [facility] Comment on above: Malignant neoplasm o f overlapping sites of right breast in female, estrogen receptor positive (Primary Dx) Start: 04-19-2024 End: 04-19-2024 Office outpatient visit 40 minutes Lucio Joseph MD Work Phone: [facility] Oncology [facility] Comment on above: Malignant neoplasm o f overlapping sites of right breast in female, estrogen receptor positive (Primary Dx) Start: 04-19-2024 ambulatory LUCIO JOSEPH Facility: [facility] Start: 04-05-2024 End: 04-05-2024 Office outpatient visit 40 minutes Wayne López APRN-SERVICE ADMINISTRATOR Work Phone: [facility] On[facility] Comment on above: Malignant neoplasm o f overlapping sites of right breast in female, estrogen receptor positive (Primary Dx) Start: 04-05-2024 End: 04-05-2024 Clinical Support Encounter Lucio Joseph MD Work Phone: Lab at [facility] Comment on above: Malignant neoplasm o f overlapping sites of right breast in female, estrogen receptor positive (Primary Dx) Start: 04-05-2024 ambulatory LUCIO JOSEPH Facility: [facility] Start: 03-22-2024 End: 03-22-2024 ambulatory Lucio Joseph MD Work Phone: [facility] Comment on above: Malignant neoplasm o f overlapping sites of right breast in female, estrogen receptor positive (Primary Dx) Start: 03-22-2024 End: 03-22-2024 Office outpatient visit 40 minutes Lucio Joseph MD Work Phone: [facility] Oncology [facility] Comment on above: Malignant neoplasm o f overlapping sites of right breast in female, estrogen receptor positive (Primary Dx) Start: 03-22-2024 ambulatory LUCIO JOSEPH Facility: [facility] Start: 03-20-2024 ambulatory GINOPSYCHIATRIC Facility: [facility] Start: 03-08-2024 End: 03-08-2024 Clinical Support Encounter Jenise Dobbins Comment on above: Malignant neoplasm o f overlapping sites of right breast in female, estrogen receptor positive (Primary Dx) Start: 03-08-2024 End: 03-08-2024 Office outpatient visit 40 minutes Wayne López [employer]ON[employer]ATION AGENT-SERVICE ADMINISTRATOR Work Phone: Medical Oncology [facility] Comment on above: Malignant neoplasm o f overlapping sites of right breast in female, estrogen receptor positive (Primary Dx) Start: 03-08-2024 ambulatory [facility]TATIAN[facility] Facility: [facility] Start: 02-25-2024 ambulatory ROEL GARCÍA Facility :[facility] Start: 02-25-2024 End: 02-25-2024 Subsequent hospital visit by physician Roel García [employer]ATION AGENT-SERVICE ADMINISTRATOR Work Phone: Imaging [facility] Comment on above: Arrived Start: 02-23-2024 End: 02-23-2024 ambulatory Emperatriz Jordan MD Work Phone: [facility] Comment on above: Malignant neoplasm o f overlapping sites of right breast in female, estrogen receptor positive (Primary Dx) Start: 02-23-2024 End: 02-23-2024 Office outpatient visit 40 minutes Lucio Joseph MD Work Phone: [facility] Oncology [facility] Comment on above: Malignant neoplasm o f overlapping sites of right breast in female, estrogen receptor positive (Primary Dx) Start: 02-23-2024 ambulatory LUCIO JOSEPH Facility: [facility] Start: 02-21-2024 End: 02-21-2024 Clinical Support Encounter Roel García [employer]ON[employer]ATION AGENT-SERVICE ADMINISTRATOR Work Phone: [facility] Comment on above: Malignant neoplasm o f overlapping sites of right female breast, unspecified estrogen receptor status (Primary Dx) Start: 02-21-2024 ambulatory CHIARA Smallwood ity:[facility] Start: 02-21-2024 End: 02-21-2024 Subsequent hospital visit by physician Chiara Mata [employer]ON[employer]ATION AGENT-SERVICE ADMINISTRATOR Work Phone: Department of Radiology Comment on above: Arrived Start: 02-16-2024 End: 02-16-2024 Telephone encounter Lucio Joseph MD Work Phone: [facility] Oncology [facility] Comment on above: FMLA/Disability Start: 02-16-2024 End: 02-16-2024 ambulatory EMPERATRIZ JORDAN Facility:[facility] Start: 02-16-2024 End: 02-16-2024 Subsequent hospital visit by physician Leonila An MD Work Phone: Perioperative Services at [facility] Comment on above: Malignant neoplasm o f overlapping sites of right breast in female, estrogen receptor positive Start: 02-15-2024 End: 02-15-2024 Telephone encounter Lucio Joseph MD Work Phone: [facility] Oncology [facility] Comment on above: Patient Education Start: 02-15-2024 End: 02-16-2024 Office outpatient new 60 minutes Taisha Gonzales MD Work Phone: Department of Radiation Oncology Comment on above: Malignant neoplasm o f overlapping sites of right breast in female, estrogen receptor positive (Primary Dx) Start: 02-15-2024 ambulatory [facility] Facility: [facility] Start: 02-15-2024 ambulatory SELF GRISELDA Facility:[facility] Start: 02-15-2024 End: 02-15-2024 Subsequent hospital visit by physician Lucio Joseph MD Work Phone: [facility] Comment on above: Arrived Start: 02-15-2024 ambulatory LEONILA AN Facility:[facility] Start: 02-13-2024 [facility] Start: 02-13-2024 End: 02-13-2024 Subsequent hospital visit by physician Roel García [employer]ON[employer]ATION AGENT-SERVICE ADMINISTRATOR Work Phone: [facility] Comment on above: Arrived Start: 02-13-2024 End: 02-13-2024 Patient encounter procedure Roel García [employer]ON[employer]ATION AGENT-SERVICE ADMINISTRATOR Work Phone: Division of Surgical Oncology Comment on above: Malignant neoplasm o f overlapping sites of right breast in female, estrogen receptor positive (Primary Dx) Start: 02-13-2024 [facility] Start: 02-13-2024 ambulatory ERIC Leger lity:[facility] Start: 02-12-2024 End: 02-12-2024 ambulatory [facility] Facility:[facility] Start: 02-09-2024 ambulatory LUCIO JOSEPH Facility: [facility] Start: 02-09-2024 End: 02-09-2024 Office outpatient new 60 minutes Lucio Jsoeph MD Work Phone: Medical Oncology at [facility] Comment on above: Malignant neoplasm o f overlapping sites of right breast in female, estrogen receptor positive (Primary Dx) Start: 02-09-2024 ambulatory LUCIO JOSEPH Facility: [facility] Start: 02-08-2024 End: 02-08-2024 Office consultation new/estab patient 60 min Yenny Morales MD Work Phone: Department of Plastic Surgery Comment on above: Malignant neoplasm o f overlapping sites of right breast in female, estrogen receptor positive (Primary Dx) Start: 02-08-2024 ambulatory [facility] Facility: [facility] Start: 02-05-2024 End: 02-05-2024 Subsequent hospital visit by physician Leonila An MD Work Phone: [facility] Comment on above: Arrived Start: 02-05-2024 ambulatory [facility] Facility: [facility] Start: 02-05-2024 End: 02-05-2024 Office outpatient new 45 minutes Leonila An MD Work Phone: Division of Surgical Oncology Comment on above: Malignant neoplasm o f female breast, unspecified estrogen receptor status, unspecified laterality, unspecified site of breast (Primary Dx); Observation for suspected malignant neoplasm Start: 02-05-2024 End: 02-05-2024 Subsequent hospital visit by physician Leonila An MD Work Phone: [facility] Comment on above: Arrived Start: 02-05-2024 ambulatory LEONILA AN Facility:[facility] Start: 02-02-2024 Telephone encounter Basilio ariza MD Work Phone: [facility] Start: 02-01-2024 ambulatory ROEL GARCÍA Facility :[facility] Start: 02-01-2024 End: 02-01-2024 Subsequent hospital visit by physician Roel García [employer]ON[employer]ATION AGENT-SERVICE ADMINISTRATOR Work Phone: [facility] Comment on above: Arrived Start: 01-30-2024 Telephone encounter Kari Moody RN [facility] Start: 01-19-2024 End: 01-19-2024 ambulatory [facility] Start: 01-19-2024 End: 01-19-2024 ambulatory [facility] Facility:[facility] Start: 01-12-2024 End: 01-12-2024 ambulatory Emperatriz Memeedel Facility:[facility] Start: 02-03-2023 End: 02-03-2023 ambulatory [facility] Work Phone: Start: 02-03-2023 End: 02-03-2023 Patient encounter procedure [facility] Work Phone: Start: 12-30-2022 End: 12-30-2022 Patient encounter procedure [facility]-Outpatient Breast Imaging Work Phone: Start: 07-20-2022 End: 07-20-2022 ambulatory [facility] Work Phone: Start: 07-20-2022 End: 07-20-2022 Patient encounter procedure [facility] Start: 01-12-2022 End: 01-12-[address] Aquilino Anaya Work Phone: [facility] Start: 12-10-2021 End: 12-10-2021 Patient encounter procedure COUNSELING CENTER DIRECTOR-C Curry Kelley COUNSELING CENTER DIRECTOR Work Phone: [facility]-Outpatient Breast Imaging Start: 12-03-2021 End: 12-03-2021 Patient encounter procedure COUNSELING CENTER DIRECTOR-C Curry Kelley COUNSELING CENTER DIRECTOR Work Phone: [facility] Start: 10-27-2021 End: 10-27-2021 Patient encounter procedure COUNSELING CENTER DIRECTOR-C Curry Kelley COUNSELING CENTER DIRECTOR [facility] Start: 10-15-2021 Non-patient / Non-visit COUNSELING CENTER DIRECTOR-C Micaela Kelley COUNSELING CENTER DIRECTOR Work Phone: [facility] Start: 10-15-2021 End: 10-15-2021 Admission to same day surgery center COUNSELING CENTER DIRECTOR-C Curry Kelley COUNSELING CENTER DIRECTOR Work Phone: [facility]-Endoscopy Start: 09-09-2021 Non-patient / Non-visit COUNSELING CENTER DIRECTOR-C Micaela Kelley COUNSELING CENTER DIRECTOR Work Phone: [facility] Start: 09-02-2021 End: 09-02-2021 Patient encounter procedure COUNSELING CENTER DIRECTOR-C Curry Kelley COUNSELING CENTER DIRECTOR Work Phone: [facility] Start: 07-15-2021 End: 07-15-2021 Patient encounter procedure COUNSELING CENTER DIRECTOR-C Curry Kelley COUNSELING CENTER DIRECTOR Work Phone: [facility]-Laboratory, Specimen Start: 07-15-2021 End: 07-15-2021 Patient encounter procedure COUNSELING CENTER DIRECTOR-C Curry Kelley COUNSELING CENTER DIRECTOR Work Phone: [facility] Start: 07-16-2020 End: 07-16-2020 Patient encounter procedure [facility] Start: 05-18-2020 End: 05-18-2020 Patient encounter procedure SAM HOWELL [facility] Start: 07-28-2017 Ambulatory PROVIDER UNKNOWN Facili ty:[facility] Start: 07-12-2007 Documentation procedure Venkat Delgadillo MD Work Phone: [facility] Start: 07-12-2007 Historic EMR Venkat Delgadillo MD Work Phone: [facility] Start: 05-31-2007 Documentation procedure Venkat Delgadillo MD Work Phone: [facility] Start: 05-31-2007 Historic EMR Venkat Delgadillo MD Work Phone: [facility] Procedures Date Procedure Procedure Detail Performing Clinician Start: 12-13-2024 End: 12-13-2024 Sodium serum plasma or whole blood Radha Mortenseni [employer]ATION AGENT-SERVICE ADMINISTRATOR Work Phone: Start: 12-13-2024 Assay of magnesium Calvin Rajputorni [employer]ATION AGENT-SERVICE ADMINISTRATOR Work Phone: Start: 12-13-2024 CBC AND ELECTRONIC DIFF Radha Mortenseni [employer]ON[employer]ATION AGENT-SERVICE ADMINISTRATOR Work Phone: Start: 12-13-2024 Complete blood count with white cell differential, automated Radha Baptitse Reguloclaribeljerri [employer]ATION AGENT-SERVICE ADMINISTRATOR Work Phone: Start: 11-26-2024 GENERAL PROCEDURE Jodie Mai MD Work Phone: Start: 11-26-2024 CBC AND ELECTRONIC DIFF Lucio Joseph MD Work Phone: Start: 11-26-2024 Complete blood count with white cell differential, automated Lucio Joseph MD Work Phone: Start: 11-26-2024 Comprehensive metabolic panel Lucio Joseph MD Work Phone: Start: 11-08-2024 Dxa bone density laura dy 1/> sites axial skel Lucio Joseph MD Work Phone: Start: 08-09-2024 CONTINUOUS CARDIAC M ONITORING STRIP Other Other Start: 08-09-2024 End: 08-09-2024 Radiological examination surgical specimen Leonila An MD Work Phone: Start: 08-09-2024 Inj radioactive trac er for id of sentinel node Dago Rivera [employer]ONSTRATION AGENT-[facility] Work Phone: Start: 08-08-2024 End: 08-08-2024 Perq breast loc device placemt 1st lesio us imag Theresa Jeffery [employer]ONSTRATION AGENT-SERVICE ADMINISTRATOR Work Phone: Start: 08-08-2024 End: 08-08-2024 GENERAL PROCEDURE Elle weaver MD Work Phone: Start: 07-11-2024 MRI w/o fol w/cont, breast, Theresa Marroquin [employer]ONSTRATION AGENT-SERVICE ADMINISTRATOR Work Phone: Start: 07-11-2024 CBC AND ELECTRONIC DIFF Lucio Joseph MD Work Phone: Start: 07-11-2024 Complete blood count with white cell differential, automated Lucio Joseph MD Work Phone: Start: 07-05-2024 CBC AND ELECTRONIC DIFF Lucio Joseph MD Work Phone: Start: 07-05-2024 Complete blood count with white cell differential, automated Lucio Joseph MD Work Phone: Start: 06-28-2024 CBC AND ELECTRONIC DIFF Lucio Joseph MD Work Phone: Start: 06-28-2024 Complete blood count with white cell differential, gunjan Joseph MD Work Phone: Start: 06-28-2024 Glucose quantitative blood xcpt reagent strip Lucio Joseph MD Work Phone: Start: 06-28-2024 MANUAL DIFF Lucio stoll MD Work Phone: Start: 06-21-2024 CBC AND ELECTRONIC DIFF Lucio Joseph MD Work Phone: Start: 06-21-2024 Complete blood count with white cell differential, gunjan Joseph MD Work Phone: Start: 06-14-2024 CBC AND ELECTRONIC DIFF Lucio Joseph MD Work Phone: Start: 06-14-2024 Complete blood count with white cell differential, gunjan Joseph MD Work Phone: Start: 06-14-2024 Echocardiography LEONILARAH ORTEGA Start: 06-14-2024 Echo transthorc r-t 2d w/wo m-mode rec f-up/lmtd Lucio Joseph MD Work Phone: Start: 06-04-2024 Albumin serum plasma /whole blood Lucio Joseph MD Work Phone: Start: 06-04-2024 CBC AND ELECTRONIC DIFF Lucio Joseph MD Work Phone: Start: 06-04-2024 Complete blood count with white cell differential, gunjan Joseph MD Work Phone: Start: 05-24-2024 CBC AND ELECTRONIC DIFF Lucio Joseph MD Work Phone: Start: 05-24-2024 Complete blood count with white cell differential, gunjan Joseph MD Work Phone: Start: 05-17-2024 CBC AND ELECTRONIC DIFF Lucio Joseph MD Work Phone: Start: 05-17-2024 Complete blood count with white cell differential, gunjan Joseph MD Work Phone: Start: 05-10-2024 Albumin serum plasma /whole blood Lucio Joseph MD Work Phone: Start: 05-10-2024 CBC AND ELECTRONIC DIFF Lucio Joseph MD Work Phone: Start: 05-10-2024 Complete blood count with white cell differential, gunjan Joseph MD Work Phone: Start: 05-03-2024 CBC AND ELECTRONIC DIFF Lucio Joseph MD Work Phone: Start: 05-03-2024 Complete blood count with white cell differential, gunjan Joseph MD Work Phone: Start: 04-26-2024 CBC AND ELECTRONIC DIFF Lucio Joseph MD Work Phone: Start: 04-26-2024 Complete blood count with white cell differential, gunjan Joseph MD Work Phone: Start: 04-19-2024 CBC AND ELECTRONIC DIFF Lucio Joseph MD Work Phone: Start: 04-19-2024 Complete blood count with white cell differential, gunjan Joseph MD Work Phone: Start: 04-19-2024 Glucose quantitative blood xcpt reagent strip Lucio Joseph MD Work Phone: Start: 04-19-2024 MANUAL DIFF Lucio stoll MD Work Phone: Start: 04-05-2024 CBC AND ELECTRONIC DIFF Wayne López [employer]ATION AGENT-SERVICE ADMINISTRATOR Work Phone: Start: 04-05-2024 Complete blood count with white cell differential, automated Wayne López [employer]ATION AGENT-SERVICE ADMINISTRATOR Work Phone: Start: 04-05-2024 MANUAL DIFF Wayne Hinojosa He yo [employer]ONSTRATION AGENT-SERVICE ADMINISTRATOR Work Phone: Start: 04-05-2024 Chemotherapy Chemotherapy WAYNE RAINES YO Start: 03-22-2024 Albumin serum plasma /whole blood Lucio Joseph MD Work Phone: Start: 03-22-2024 CBC AND ELECTRONIC DIFF Lucio Joseph MD Work Phone: Start: 03-22-2024 Complete blood count with white cell differential, automated Lucio Joseph MD Work Phone: Start: 03-22-2024 MANUAL DIFF Lucio stoll MD Work Phone: Start: 03-08-2024 CBC AND ELECTRONIC DIFF Wayne López [employer]ONSTRATION AGENT-SERVICE ADMINISTRATOR Work Phone: Start: 03-08-2024 Complete blood count with white cell differential, automated Wayne Hinojosa López [employer]ONSTRATION AGENT-SERVICE ADMINISTRATOR Work Phone: Start: 03-08-2024 EXTRA MINT GREEN TOP Caryl Lai MD Work Phone: Start: 03-08-2024 EXTRA TUBES Randa blake MD Work Phone: Start: 03-08-2024 MANUAL DIFF Wayne Micaela Raines yo COUNTY [employer]ONSTRATION AGENT-SERVICE ADMINISTRATOR Work Phone: Start: 02-23-2024 CBC AND ELECTRONIC DIFF Wayne Micaela JainLópez [employer]ATION AGENT-SERVICE ADMINISTRATOR Work Phone: Start: 02-23-2024 Complete blood count with white cell differential, automated Wayne López [employer]ONSTRATION AGENT-SERVICE ADMINISTRATOR Work Phone: Start: 02-23-2024 Glucose quantitative blood xcpt reagent strip Wayne López [employer]ATION AGENT-SERVICE ADMINISTRATOR Work Phone: Start: 02-21-2024 Perq breast loc mimi ce placemt 1st lesio us imag Roel E García [employer]ATION AGENT-SERVICE ADMINISTRATOR Work Phone: Start: 02-21-2024 GENERAL PROCEDURE Diane South DO Work Phone: Start: 02-16-2024 Radiologic exam ches t single view Autumn Gardner PA-C Work Phone: Start: 02-16-2024 CONTINUOUS CARDIAC M ONITORING STRIP Other Other Start: 02-16-2024 End: 02-16-2024 Fluoro central venous access dev placement Leonila An MD Work Phone: Start: 02-16-2024 End: 02-16-2024 Insj tunneled ctr vad w/subq port age 4 yr/> Leonila An MD Work Phone: Start: 02-16-2024 End: 02-16-2024 Us vasc access sits vsl patency ndl entry Leonila An MD Work Phone: Start: 02-16-2024 US Unspecified body region Leonila An MD Work Phone: Start: 02-15-2024 Echocardiography LEONILA ORTEGA Start: 02-15-2024 Echo tthrc r-t 2d w/ wom-mode compl spec&colr d Lucio Joseph MD Work Phone: Start: 02-13-2024 Bone &/joint imaging whole body Roel García APRN-SERVICE ADMINISTRATOR Work Phone: Start: 02-05-2024 Us lmtd joint/oth no nvasc xtr strux r-t w/img Roel García APRN-SERVICE ADMINISTRATOR Work Phone: Start: 02-05-2024 Us breast uni real t madonna with image limited Roel García [employer]ATION AGENT-SERVICE ADMINISTRATOR Work Phone: Start: 02-05-2024 Diagnostic mammograp hy computer-aided detcj uni Roel García APRN-SERVICE ADMINISTRATOR Work Phone: Start: 02-01-2024 MG Breast Views Roel García APRN-SERVICE ADMINISTRATOR Work Phone: Start: 12-30-2022 Screening mammography Start: 12-10-2021 Screening mammography N P-C Curry Kelley COUNSELING CENTER DIRECTOR Work Phone: Start: 12-03-2021 X-ray of both feet COUNSELING CENTER DIRECTOR-C Curry Rehan COUNSELING CENTER DIRECTOR Work Phone: Start: 10-15-2021 Colonoscopy COUNSELING CENTER DIRECTOR-C Angela silva Rehan COUNSELING CENTER DIRECTOR Work Phone: Start: 10-14-2021 End: 10-14-2021 Viral antigen assay COUNSELING CENTER DIRECTOR-C Curry Rehan COUNSELING CENTER DIRECTOR Work Phone: Start: 06-19-2018 Lipid 1996 panel - S inés or Plasma Kari Moody RN Start: 07-12-2007 SURGICAL PATHOLOGY, CONVERTED Venkat Delgadillo MD Work Phone: Start: 05-30-2007 CYTOLOGY MOTOR VEHICLE TECHNICIAN, CONVERTED Venkat Delgadillo MD Work Phone: Viral antigen assay [facility]. [facility] Work Phone: Plan of Treatment Date Care Activity Detail Author Start: 2039 RSV VACCINE (1 - 1-dose 75+ series) RSV VACCINE (1 - 1-dose 75+ series) [facility] Start: 12-13-2025 Potassium [Moles/volume] in Serum or Plasma POTASSIUM [facility] Start: 11-26-2025 Potassium [Moles/volume] in Serum or Plasma POTASSIUM [facility] Start: 11-08-2025 Potassium [Moles/volume] in Serum or Plasma [facility]SIUM [facility] [facility] Start: 11-08-2025 Thyroid stimulating hormone measurement TSH [facility] Start: 06-28-2025 Potassium [Moles/volume] in Serum or Plasma POTASSIUM [facility] Start: 06-04-2025 Potassium [Moles/volume] in Serum or Plasma POTASSIUM [facility] Start: 05-16-2025 End: 05-16-2025 Telemedicine consultation with patient 05/16/2025 9:00 AM EST Telemedicine Supportive Care at The [address] [address] Leandra Heath, COUNTY HOME DEMONSTRATION AGENT-SERVICE ADMINISTRATOR [address] [place] [address] Supportive Care at The [facility] Start: 05-10-2025 Potassium [Moles/volume] in Serum or Plasma POTASSIUM [facility] Start: 04-19-2025 Potassium [Moles/volume] in Serum or Plasma POTASSIUM [facility] Start: 03-22-2025 Potassium [Moles/volume] in Serum or Plasma POTASSIUM [facility] Start: 02-22-2025 Potassium [Moles/volume] in Serum or Plasma POTASSIUM [facility] Start: 02-08-2025 Potassium [Moles/volume] in Serum or Plasma POTASSIUM [facility] Start: 01-31-2025 Screening for malignant neoplasm of breast Mammogram Screening [facility] Start: 01-30-2025 End: 01-30-2025 Patient encounter procedure [facility] Mammography at [facility] Start: 01-27-2025 End: 01-27-2025 Patient encounter procedure [facility] Mammography at [facility] Start: 01-21-2025 End: 08-20-2025 MG Breast - bilateral Diagnostic MAMMO DIAGNOSTIC WITH ELVER BILATERAL Imaging Routine Malignant neoplasm of overlapping sites of right breast in female, estrogen receptor positive Breast cancer metastasized to axillary lymph node, right Expected: 01/21/2025, Expires: 08/20/[address] [facility] Comment on above: Expected: 01/21/2025, Expires: Start: 01-11-2025 Screening for malignant neoplasm of breast [facility] Start: 12-27-2024 End: 12-27-2024 Telemedicine consultation with patient 12/27/2024 3:30 PM EDT Telemedicine Medical Oncology at The [facility] [address] [facility] 4th Floor, [address] [place] [address] Radha Roberts, COUNTY HOME DEMONSTRATION AGENT-SERVICE ADMINISTRATOR [address] [place] [address] Medical Oncology at The [facility] Start: 12-27-2024 End: 12-13-2025 CHEM 6 (LYTES, BUN CREA) CHEM 6 (LYTES, BUN CREA) Lab Routine Malignant neoplasm of overlapping sites of right breast in female, estrogen receptor positive Expected: 12/27/2024, Expires: 12/13/[address] [facility] Comment on above: Expected: 12/27/2024, Expires: Start: 12-27-2024 End: 12-13-2025 Glucose [Mass/volume] in Serum or Plasma GLUCOSE Lab Routine Malignant neoplasm of overlapping sites of right breast in female, estrogen receptor positive Expected: 12/27/2024, Expires: 12/13/[address] [facility] Comment on above: Expected: 12/27/2024, Expires: Start: 12-27-2024 End: 12-13-2025 Hepatic function 2000 panel - Serum or Plasma HEPATIC FUNCTION PANEL Lab Routine Malignant neoplasm of overlapping sites of right breast in female, estrogen receptor positive Expected: 12/27/2024, Expires: 12/13/[address] [facility] Comment on above: Expected: 12/27/2024, Expires: Start: 12-27-2024 End: 12-13-2025 Magnesium [Mass/volume] in Serum or Plasma MAGNESIUM Lab Routine Malignant neoplasm of overlapping sites of right breast in female, estrogen receptor positive Expected: 12/27/2024, Expires: 12/13/[address] [facility] Comment on above: Expected: 12/27/2024, Expires: Start: 12-16-2024 End: 12-13-2025 CHEM 6 (LYTES, BUN CREA) CHEM 6 (LYTES, BUN CREA) Lab Routine Acute hyponatremia Expected: 12/16/2024, Expires: 12/13/[address] [facility] Comment on above: Expected: 12/16/2024, Expires: Start: 12-13-2024 End: 12-13-2024 Clinical Support Encounter Clinical Laboratories at The [facility] Start: 11-29-2024 End: 11-08-2025 Complete blood count with white cell differential, automated CBC, EDIF, PLATELET Lab Routine Malignant neoplasm of overlapping sites of right breast in female, estrogen receptor positive Expected: 11/29/2024, Expires: 11/08/[address] [facility] Comment on above: Expected: 11/29/2024, Expires: Start: 11-29-2024 End: 11-08-2025 Comprehensive metabolic 2000 panel - Serum or Plasma COMPREHENSIVE METABOLIC PANEL Lab Routine Malignant neoplasm of overlapping sites of right breast in female, estrogen receptor positive Expected: 11/29/2024, Expires: 11/08/[address] [facility] Comment on above: Expected: 11/29/2024, Expires: Start: 11-01-2024 End: 11-01-2024 Patient encounter procedure Medical Oncology at The [facility] Start: 08-22-2024 End: 08-22-2024 Patient encounter procedure 08/22/2024 10:15 AM EST Office Visit Division of Surgical Oncology [address] [facility] 3rd Floor, [address] [place] [address] Leonila An MD [address] [place], [place] [phone] Division of Surgical Oncology Start: 08-15-2024 End: 08-15-2024 Patient encounter procedure 08/15/2024 2:30 PM EST Office Visit Department of Plastic Surgery [address] [facility] [address] [place] [phone] Yenny Aguero MD [address] [facility] [address] [place] [phone] Department of Plastic Surgery Start: 08-09-2024 End: 08-09-2024 Axillary lymphadenectomy complete [facility] Start: 08-09-2024 End: 08-09-2024 Bx/exc lymph node open deep axillary node [facility] Start: 08-09-2024 End: 08-09-2024 Inj radioactive tracer for id of sentinel node [facility] Start: 08-09-2024 End: 08-09-2024 Intraop sentinel lymph node id w/dye injection [facility] Start: 08-09-2024 End: 08-09-2024 Mastectomy partial [facility] Start: 08-09-2024 End: 08-09-2024 Admission to same day surgery center 08/09/2024 7:15 AM EST - 08/09/2024 9:30 AM EST Surgery Perioperative Services at The [facility] [address]rd [place] [phone] Leonila An MD [address] [place] [address] MASTECTOMY PARTIAL (LUMPECTOMY) Perioperative Services at The [facility] Comment on above: MASTECTOMY PARTIAL (LUMPECTOMY) Start: 08-09-2024 End: 08-09-2024 Axillary lymphadenectomy complete LYMPHADENECTOMY AXILLARY DEEP Breast cancer metastasized to axillary lymph node, right Malignant neoplasm of overlapping sites of right breast in female, estrogen receptor positive 08/09/2024 7:15 AM EST [facility] Start: 08-09-2024 End: 08-09-2024 Bx/exc lymph node open deep axillary node BX LYMPH NODE AXILLARY DEEP Breast cancer metastasized to axillary lymph node, right Malignant neoplasm of overlapping sites of right breast in female, estrogen receptor positive 08/09/2024 7:15 AM EST [facility] Start: 08-09-2024 End: 08-09-2024 Inj radioactive tracer for id of sentinel node INJECTION RADIOACTIVE TRACER FOR SENTINEL NODE IDENTIFICATION Breast cancer metastasized to axillary lymph node, right Malignant neoplasm of overlapping sites of right breast in female, estrogen receptor positive 08/09/2024 7:15 AM EST [facility] Start: 08-09-2024 End: 08-09-2024 Intraop sentinel lymph node id w/dye injection IDENTIFICATION SENTINEL NODE INTRAOPERATIVE ADD-ON PX Breast cancer metastasized to axillary lymph node, right Malignant neoplasm of overlapping sites of right breast in female, estrogen receptor positive 08/09/2024 7:15 AM EST [facility] Start: 08-09-2024 End: 08-09-2024 Mastectomy partial MASTECTOMY PARTIAL (LUMPECTOMY) Breast cancer metastasized to axillary lymph node, right Malignant neoplasm of overlapping sites of right breast in female, estrogen receptor positive 08/09/2024 7:15 AM EST [facility] Start: 08-09-2024 Subsequent hospital visit by physician Perioperative Services at The [facility] Comment on above: Breast cancer metastasized to axillary l ymph node, right Arrived Start: 08-09-2024 Subsequent hospital visit by physician 08/09/2024 5:15 AM EST Hospital Encounter Perioperative Services at The [facility] [address] [facility] 3rd [place] [phone] Leonila An MD [address] [place] [id number] Breast cancer metastasized to axillary lymph node, right Perioperative Services at The [facility] Comment on above: Breast cancer metastasized to axillary l ymph node, right Start: 08-08-2024 End: 08-08-2024 Patient encounter procedure [facility] Mammography at [facility] Start: 08-01-2024 End: 08-01-2024 Patient encounter procedure 08/01/2024 2:00 PM EST Office Visit Department of Plastic Surgery [address] [facility] [address] [place] [phone] Yenny Aguero MD [address] [facility] [address] [place] [address] Department of Plastic Surgery Start: 07-29-2024 End: 07-29-2024 Anesthesia consultation 07/29/2024 8:30 AM EST Pre-Operative Nurse Assessment [facility] at [facility] [place] [address] [place] [phone] [facility] Pre Anesthesia Center at [facility] Start: 07-15-2024 End: 07-15-2024 Patient encounter procedure Division of Surgical Oncology Start: 07-11-2024 End: 07-11-2024 Patient encounter procedure 07/11/2024 1:00 PM EST Appointment Department of Radiology [address] [facility] [address] [place] [address] Theresa Marroquin, COUNTY HOME DEMONSTRATION AGENT-SERVICE ADMINISTRATOR [address] [facility] [address] [place] [address] Department of Radiology Start: 07-11-2024 Subsequent hospital visit by physician 07/11/2024 1:00 PM EST Hospital Encounter Department of Radiology [address] [facility] [address] [place] [address] Theresa Marroquin, COUNTY HOME DEMONSTRATION AGENT-SERVICE ADMINISTRATOR [address] [facility] [address] [place] [address] Department of Radiology Start: 07-11-2024 End: 07-11-2024 ambulatory 07/11/2024 9:30 AM EST Infusion Visit [facility] [address] [facility] [facility] [address] [place] [address] Lucio Joseph MD [address] [place] [address] [facility] Start: 07-05-2024 End: 07-05-2024 ambulatory 07/05/2024 2:30 PM EST Infusion Visit [facility] [address] [facility] [facility] [address] [place] [address] Lucio Joseph MD [address] [facility] [place] [address] [facility] Start: 07-04-2024 End: 06-20-2025 MR Breast - bilateral WO and W contrast IV MRI BREAST BILATERAL WITH AND WITHOUT CONTRAST Imaging Routine Breast cancer metastasized to axillary lymph node, right Expected: 07/04/2024, Expires: 06/20/[address] [facility] Comment on above: Expected: 07/04/2024, Expires: Start: 06-28-2024 End: 06-28-2024 ambulatory 06/28/2024 10:30 AM EST Infusion Visit [facility] [address] [facility] [address] [place] [phone] Lucio Joseph MD [address] [place] [address] [facility] Start: 06-28-2024 End: 06-28-2024 Clinical Support Encounter Clinical Laboratories at [facility] Start: 06-21-2024 End: 06-21-[address] [facility] Start: 06-14-2024 End: 06-14-[address] [facility] Start: 06-14-2024 End: 06-14-2024 Patient encounter procedure 06/14/2024 11:00 AM EST Appointment [facility] [address] [place] [address] Lucio Joseph MD [address] [place] [address] [facility] Start: 06-04-2024 End: 06-04-2025 Echocardiography ECHOCARDIOGRAM Echocardiography STAT Bilateral leg edema Expected: 06/04/2024, Expires: 06/04/[address] [facility] Comment on above: Expected: 06/04/2024, Expires: Start: 06-04-2024 End: 06-04-[address] [facility] Start: 06-04-2024 End: 06-04-2024 Clinical Support Encounter Clinical Laboratories at [facility] Start: 05-24-2024 End: 05-24-[address] [facility] Start: 05-20-2024 End: 05-20-2024 Patient encounter procedure 05/20/2024 10:15 AM EST Office Visit Division of Surgical Oncology [address] 3[address] Floor, [address] [place] [address] Leonila An MD [address] [place] [place] [address] Division of Surgical Oncology Start: 05-17-2024 End: 05-17-[address] [facility] Start: 05-10-2024 End: 05-10-2024 Clinical Support Encounter Clinical Laboratories at [facility] Start: 05-03-2024 End: 05-03-2024 ambulatory 05/03/2024 9:00 AM EDT Infusion Visit [facility] [address] [facility] [address] [place] [address] Lucio Joseph MD [address] [place] [phone] [facility] Start: 04-26-2024 End: 04-26-2024 ambulatory 04/26/2024 9:00 AM EDT Infusion Visit [facility] [address] [facility] [facility] [address] [place] [address] [facility] Start: 04-19-2024 End: 04-19-2024 ambulatory 04/19/2024 11:30 AM EDT Infusion Visit [facility] [address] [facility] [address] [place] [address] Lucio Joseph MD [address] [place] [address] [facility] Start: 04-19-2024 End: 04-19-2024 Clinical Support Encounter Clinical Laboratories at [facility] Start: 2024 RSV VACCINE (1 - 1-dose 60+ series) RSV VACCINE (1 - 1-dose 60+ series) [facility] Start: 2024 RSV VACCINE (1 - Risk 60-74 years 1-dose series) RSV VACCINE (1 - Risk 60-74 years 1-dose series) [facility] Start: 04-05-2024 End: 04-05-2024 Clinical Support Encounter Clinical Laboratories at [facility] Start: 03-22-2024 End: 03-22-2024 ambulatory 03/22/2024 10:30 AM EDT Infusion Visit [facility] [address] [facility] [address] [place] [address] Lucio Joseph MD [address] [facility] [place] [address] [facility] Start: 03-22-2024 End: 03-22-2024 Clinical Support Encounter Clinical Laboratories at [facility] Start: 03-20-2024 End: 03-20-2024 Nutrition therapy 03/20/2024 10:00 AM EDT Telemed Clin Support Department of Nutrition and Dietetics [facility] [facility] [address] [place] [phone] Lucio Joseph MD [address] [facility] [place] [address] Department of Nutrition and Dietetics Start: 03-08-2024 End: 03-08-2024 Clinical Support Encounter [facility] Start: 03-03-2024 COVID-19 VACCINE ( season) COVID-19 VACCINE ( season) [facility] Start: 03-03-2024 COVID-19 VACCINE ( season) COVID-19 VACCINE ( season) [facility] Start: 03-03-2024 COVID-19 VACCINE () COVID-19 VACCINE ( season) [facility] Start: 03-03-2024 Influenza vaccination Influenza Vaccine (#1) [facility] Start: 02-25-2024 Subsequent hospital visit by physician 02/25/2024 12:00 PM EDT Hospital Encounter Imaging [facility] [address] [facility] 1st [place] [phone] Roel García, COUNTY HOME DEMONSTRATION AGENT-SERVICE ADMINISTRATOR [address] [place] [address] [facility] Start: 02-23-2024 End: 02-23-[address] [facility] Start: 02-23-2024 End: 02-23-2024 Clinical Support Encounter Clinical Laboratories at [facility] Start: 02-21-2024 Subsequent hospital visit by physician 02/21/2024 4:20 PM EDT Hospital Encounter Department of Radiology [address] [facility] [address] [place] [phone] Chiara Mata, COUNTY HOME DEMONSTRATION AGENT-SERVICE ADMINISTRATOR [address] [place] [address] Department of Radiology Start: 02-21-2024 End: 02-21-2024 Patient encounter procedure [facility]amm[facility] at [facility] Start: 02-16-2024 End: 02-16-2024 Admission to same day surgery center 02/16/2024 9:00 AM EDT - 02/16/2024 11:00 AM EDT Surgery Perioperative Services at [facility] [address] [place] [address] Leonila An MD [address] [place], [place] [phone] INSERTION CVC TUNNELED W/ PORT PUMP Perioperative Services at [facility] Comment on above: INSERTION CVC TUNNELED W/ PORT PUMP Start: 02-16-2024 End: 08-16-2024 Insj tunneled ctr vad w/subq port age 4 yr/> [facility] Start: 02-16-2024 Subsequent hospital visit by physician 02/16/2024 7:00 AM EDT Hospital Encounter Perioperative Services at [facility] [address]rd [place] [address] Leonila An MD [address] [place] [address] Malignant neoplasm of overlapping sites of right breast in female, estrogen receptor positive Perioperative Services at [facility] Comment on above: Malignant neoplasm of overlapping sites of right breast in female, estrogen receptor positive Start: 02-15-2024 End: 02-15-2024 Patient encounter procedure 02/15/2024 1:30 PM EDT Office Visit Department of Radiation Oncology [address] [facility] 1st Floor, [address] [place] [phone] Taisha Gonzales MD [address] [place] [address] Department of Radiation Oncology Start: 02-15-2024 End: 02-15-2024 ambulatory Lab at [facility] Start: 02-15-2024 End: 02-15-2024 Anesthesia consultation 02/15/2024 11:30 AM EDT Pre-Operative Nurse Assessment Comprehensive Pre Anesthesia [facility] at [facility] [address] [place] [phone] Leonila An MD [address] [place] [address] Comprehensive Pre Anesthesia Center at [facility] Start: 02-15-2024 End: 02-15-2024 Patient encounter procedure 02/15/2024 9:30 AM EDT Appointment [facility] [address] [place] [phone] Lucio Joseph MD [address] [place] [address] [facility] Start: 02-13-2024 Subsequent hospital visit by physician Imaging [facility] Start: 02-13-2024 End: 02-13-2024 Patient encounter procedure Imaging [facility] Start: 02-13-2024 End: 02-13-2024 Telemedicine consultation with patient 02/13/2024 8:00 AM EDT Telemedicine Division of Human Genetics [address] [facility] [address] [place] [address] Eric Campos, [facility] [address] [place] [address] Division of Human Genetics Start: 02-12-2024 End: 02-12-2024 ambulatory 02/12/2024 8:00 AM EDT Visit (SP) Office Hematology/Oncology [address] [place] [address] Jessa Cloud MD [address] [place] [address] [facility] - 2nd Opinion Hematology/Oncology Comment on above: [facility] - 2nd Opinion Start: 02-12-2024 End: 02-12-2024 Patient encounter procedure Mammography Comment on above: Imaging Review Breast Cancer- New patient consult [facility] - 2nd Opinion Start: 02-09-2024 End: 02-08-2025 Echocardiography ECHOCARDIOGRAM Echocardiography STAT Malignant neoplasm of overlapping sites of right breast in female, estrogen receptor positive Expected: 02/09/2024, Expires: 02/08/[address] [facility] Comment on above: Expected: 02/09/2024, Expires: Start: 02-09-2024 End: 02-09-2024 Patient encounter procedure 02/09/2024 9:40 AM EDT Office Visit Medical Oncology at [facility] Breast [place] [address] [facility] [facility] [address], [address] [place] [phone] Lucio Joseph MD [address] [facility] [address] [place] [phone] Medical Oncology at [facility] Start: 02-08-2024 End: 02-08-2024 Patient encounter procedure 02/08/2024 12:30 PM EDT Office Visit Department of Plastic Surgery [address] [place] [phone] Yenny Aguero MD [address] [place] [phone] Department of Plastic Surgery Start: 02-05-2024 End: 02-04-2025 CT Abdomen and Pelvis W contrast IV CT ABDOMEN/PELVIS WITH CONTRAST Imaging Routine Malignant neoplasm of female breast, unspecified estrogen receptor status, unspecified laterality, unspecified site of breast Observation for suspected malignant neoplasm Expected: 02/05/2024, Expires: 02/04/[address] [facility] Comment on above: Expected: 02/05/2024, Expires: Start: 02-05-2024 End: 02-04-2025 CT Chest W contrast IV CT CHEST WITH CONTRAST Imaging Routine Malignant neoplasm of female breast, unspecified estrogen receptor status, unspecified laterality, unspecified site of breast Observation for suspected malignant neoplasm Expected: 02/05/2024, Expires: 02/04/[address] [facility] Comment on above: Expected: 02/05/2024, Expires: Start: 02-05-2024 End: 02-04-2025 NM Whole body Bone Views NUC BONE SCAN WHOLE BODY Imaging Routine Malignant neoplasm of female breast, unspecified estrogen receptor status, unspecified laterality, unspecified site of breast Observation for suspected malignant neoplasm Expected: 02/05/2024, Expires: 02/04/[address] [facility] Comment on above: Expected: 02/05/2024, Expires: Start: 02-05-2024 End: 02-05-2024 Patient encounter procedure [facility] Start: 02-05-2024 End: 02-05-2024 Patient encounter procedure 02/05/2024 9:30 AM EDT Office Visit Division of Surgical Oncology [address] Floor, [address] [place] [address] Leonila An MD [address] [place] [address] Division of Surgical Oncology Start: 06-19-2023 Lipid panel Lipid Screening [facility] Start: 03-03-2023 Covid-19 Vaccine ( season) Covid-19 Vaccine () [facility] Start: 04-18-2022 Diabetes Screening Diabetes Screening [facility] Start: 10-15-2021 Colonoscopy flx dx w/collj spec when pfrmd DIAGNOSTIC COLONOSCOPY [facility] Work Phone: Start: 2014 Pneumococcal vaccination PNEUMOCOCCAL VACCINE SERIES (1 of 1 - PCV) [facility] Start: 2014 Shingrix Vaccine (1 of 2) Shingrix Vaccine (1 of 2) [facility] Start: 2014 Zoster vaccine hzv live for subcutaneous use ZOSTER (SHINGLES) VACCINE (1 of 2) [facility] Start: 2009 Screening for malignant neoplasm of colon [facility] Start: 2004 Lipid panel LIPID SCREENING [facility] Start: 1985 Screening for malignant neoplasm of cervix [facility] Start: 1983 Hepatitis B vaccination HEP B VACCINE (1 of 3 - 19+ 3-dose series) [facility] Start: 1983 Third diphtheria, tetanus and acellular pertussis (DTaP) vaccination TDAP (ADULT) [facility] Start: 1983 Urine microalbumin profile DTaP,Tdap,Td Vaccine (1 - Tdap) [facility] Start: 1982 Anxiety Screening Anxiety Screening [facility] Start: 1982 Depression Screening Depression Screening [facility] Start: 1982 Hepatitis C screening Hepatitis C Screening [facility] Start: 1982 HIV screening HIV Screening [facility] Start: 1979 HIV screening HIV SCREENING DISCUSSION [facility] [facility]: 1965 Hepatitis C screening HEPATITIS C VIRUS SCREENING [facility] Start: 1964 Potassium [Moles/volume] in Serum or Plasma POTASSIUM [facility] Start: 1964 Tetanus vaccination TETANUS [facility] Start: 1964 Thyroid stimulating hormone measurement TSH [facility] End: 02-13-2024 CT Abdomen and Pelvis W contrast IV [facility] Comment on above: 1 Occurrences starting 02/13/2024 until 02/13/2024 End: 02-13-2024 CT Chest W contrast IV [facility] Comment on above: 1 Occurrences starting 02/13/2024 until 02/13/2024 Mastectomy partial MASTECTOMY PA RTIAL (LUMPECTOMY) Breast cancer metastasized to axillary lymph node, right Malignant neoplasm of overlapping sites of right breast in female, estrogen receptor positive [facility] End: 02-25-2024 [facility] on above: 1 Occurrences starting 02/25/2024 until 02/25/2024 End: 02-21-2024 MR Breast - bilateral WO and W contrast IV [facility] Work Phone: Comment on above: 1 Occurrences starting 02/21/2024 until 02/21/2024 Patient referral [facility] Work Phone: End: 02-16-2024 RF Less than [address] [facility] Comment on above: One Time for 1 Occurrences starting 01/31 until 02/16/2024 Rmvl dayanara ctr vad w/s ubq port/lumber trimmer ctr/prph insj REMOVAL CENTRAL VENOUS ACCESS DEVICE TUNNELED W/ PORT PUMP Malignant neoplasm of overlapping sites of right breast in female, estrogen receptor positive [facility] INTERVENTIONAL RADIOLOGY SURG PATH REQUEST [facility] Comment on above: Release Upon Ordering for 1 Occurrences starting 08/09/2024, 1 completed End: 11-11-2024 VENOUS ACCESS PORT REMOVAL [facility] Comment on above: One Time for 1 Occurrences starting 10/31 until 11/11/2024 Immunizations Immunization Date Immunization Notes Care Provider David kamara 05-24-2024 influenza, seasonal, injectable, preservative free Carlie Mejia RN [facility] 04-17-2009 influenza virus vaccine, unspecified formulation Roel García [employer] AGENT-SERVICE ADMINISTRATOR Work Phone: [facility] Payers Date Payer Category Payer Managed Care (unspecified) MMO [facility]/PREFERRED RATE [id number] 2024 Unknown [id number] 2024 Unknown [id number]. [id number] 2023 Self-pay [id number] 2023 Unknown [id number] 2015 Private Health Insurance [id number] 1964 Unknown [id number] 2.16.840.1.220310.3.579.2. 651 1964 Unknown [id number] 2.16.840.1.599007.3.579.2. 651 1964 Unknown [id number] 2.16.840.1.379158.3.579.2. 594 1964 Unknown [id number] 2.16.840.1.032426.3.579.2. 594 1964 Unknown [id number] 2.16.840.1.118077.3.579.2. 594 1964 Unknown [id number] 2.16.840.1.721482.3.579.2. 594 1964 Unknown [id number] 2.16.840.1.037090.3.579.2. 594 1964 Unknown [id number] 2.16.840.1.037605.3.579.2. 594 1964 Unknown [id number] 2.16.840.1.492797.3.579.2. 594 1964 Unknown [id number] 2.16.840.1.874104.3.579.2. 594 1964 Unknown [id number] 2.16.840.1.692593.3.579.2. 594 1964 Unknown [id number] 2.16.840.1.390998.3.579.2. 594 1964 Unknown [id number] 2.16.840.1.421887.3.579.2. 594 1964 Unknown [id number] 2.16.840.1.999460.3.579.2. 594 1964 Unknown [id number] 2.16.840.1.302119.3.579.2. 594 1964 Unknown [id number] 2.16.840.1.863952.3.579.2. 594 1964 Unknown [id number] 2.16.840.1.431385.3.579.2. 594 1964 Unknown [id number] 2.16.840.1.889999.3.579.2. 594 1964 Unknown [id number] 2.16.840.1.416724.3.579.2. 594 1964 Unknown [id number] 2.16.840.1.250111.3.579.2. 594 1964 Unknown [id number] 2.840.1.332261.3.579.2. 594 1964 Unknown [id number] 2.16840.1.909999.3.579.2. 594 1964 Unknown [id number] 2.840.1.603972.3.579.2. 594 1964 Unknown [id number] 2.840.1.057839.3.579.2. 594 1964 Unknown [id number] 2.840.1.494547.3.579.2. 594 1964 Unknown [id number] 2.840.1.523703.3.579.2. 594 1964 Unknown [id number] 2.840.1.986801.3.579.2. 594 1964 Unknown [id number] 2.840.1.602650.3.579.2. 594 1964 Unknown [id number] 2.840.1.136706.3.579.2. 594 1964 Unknown [id number] 2.840.1.102302.3.579.2. 594 1964 Unknown [id number] 840.1.266064.3.579.2. 594 1964 Unknown [id number] 2.840.1.875267.3.579.2. 594 1964 Unknown [id number] 2.840.1.923843.3.579.2. 594 1964 Unknown [id number] 2.16840.1.763295.3.579.2. 594 1964 Unknown [id number] 2.840.1.507066.3.579.2. 594 1964 Unknown [id number] 2.16.840.1.876646.3.579.2. 594 1964 Unknown [id number] 2.840.1.003330.3.579.2. 594 1964 Unknown [id number] 2.16.840.1.501318.3.579.2. 594 1964 Unknown [id number] 2.840.1.646950.3.579.2. 594 1964 Unknown [id number] 2.840.1.023470.3.579.2. 594 1964 Unknown [id number] 2.840.1.211877.3.579.2. 594 1964 Unknown [id number] 2.840.1.783728.3.579.2. 594 1964 Unknown [id number] 2.840.1.031414.3.579.2. 594 1964 Unknown [id number] 2.840.1.553438.3.579.2. 594 1964 Unknown [id number] 2.840.1.956221.3.579.2. 594 1964 Unknown [id number] 2.840.1.079549.3.579.2. 594 1964 Unknown [id number] 2.840.1.519308.3.579.2. 594 1964 Unknown [id number] 2.840.1.672008.3.579.2. 594 1964 Unknown [id number] 2.840.1.547288.3.579.2. 594 1964 Unknown [id number] 2.840.1.060508.3.579.2. 594 1964 Unknown [id number] 2.840.1.909695.3.579.2. 594 1964 Unknown [id number] 2.16.840.1.031331.3.579.2. 594 1964 Unknown [id number] 2.16.840.1.529185.3.579.2. 594 1964 Unknown [id number] 2.16.840.1.664807.3.579.2. 594 1964 Unknown [id number] 2.840.1.285840.3.579.2. 594 1964 Unknown [id number] 2.840.1.649237.3.579.2. 594 1964 Unknown [id number] 2.840.1.637580.3.579.2. 594 1964 Unknown [id number] 2.840.1.234205.3.579.2. 594 1964 Unknown [id number] 2.840.1.132029.3.579.2. 594 1964 Unknown [id number] 2.840.1.364192.3.579.2. 594 1964 Unknown [id number] 2.840.1.732526.3.579.2. 594 1964 Unknown [id number] 2.840.1.051449.3.579.2. 594 1964 Unknown [id number] 2.840.1.354064.3.579.2. 594 1964 Unknown [id number] 2.16840.1.563352.3.579.2. 594 1964 Unknown [id number] 2.840.1.445783.3.579.2. 594 1964 Unknown [id number] 2.16.840.1.444764.3.579.2. 594 1964 Unknown [id number] 2.840.1.424893.3.579.2. 594 1964 Unknown [id number] 2.16.840.1.087050.3.579.2. 594 1964 Unknown [id number] 2.16.840.1.654977.3.579.2. 594 1964 Unknown [id number] 2.16.840.1.135878.3.579.2. 594 1964 Unknown [id number] 2.16.840.1.380741.3.579.2. 594 1964 Unknown [id number] 2.16.840.1.096910.3.579.2. 594 1964 Unknown [id number] 2.16.840.1.519262.3.579.2. 594 1964 Unknown [id number] 2.16.840.1.649083.3.579.2. 594 1964 Unknown [id number] 2.840.1.007192.3.579.2. 594 1964 Unknown [id number] 2.16.840.1.134181.3.579.2. 594 1964 Unknown [id number] 2.16.840.1.537784.3.579.2. 594 1964 Unknown [id number] 2.16.840.1.500692.3.579.2. 594 1964 Unknown [id number] 2.16840.1.875201.3.579.2. 594 1964 Unknown [id number] 2.16.840.1.458547.3.579.2. 594 1964 Unknown [id number] 2.16.840.1.694260.3.579.2. 594 1964 Unknown [id number] 2.16.840.1.755860.3.579.2. 594 1964 Unknown [id number] 2.16.840.1.287339.3.579.2. 594 1964 Unknown [id number] 2.16.840.1.686095.3.579.2. 594 Private Health Insurance [id number] Unknown [id number] Unknown [id number] 2.16.840.1.429704.3.579.2. 462 Unknown [id number] 2.16.840.1.171343.3.579.2. 462 Unknown [id number] 2.16.840.1.864058.3.579.2. 462 Unknown [id number] 2.16.840.1.478641.3.579.2. 462 Unknown [id number] 2.16.840.1.855392.3.579.2. 462 Unknown [id number] 2.16.840.1.475601.3.579.2. 462 Unknown [id number] 2.16.840.1.546162.3.579.2. 462 Unknown [id number] 2.16.840.1.421809.3.579.2. 462 Unknown [id number] 2.16.840.1.853528.3.579.2. 462 Unknown [id number] 2.16.840.1.234098.3.579.2. 462 Unknown [id number] 2.16.840.1.284201.3.579.2. 462 Unknown [id number] 2.16.840.1.737025.3.579.2. 462 Unknown [id number] 2.16.840.1.089491.3.579.2. 462 Unknown [id number] 2.16.840.1.989733.3.579.2. 462 Unknown [id number] 2.16.840.1.365423.3.579.2. 462 Unknown [id number] 2.16.840.1.736645.3.579.2. 462 Unknown [id number] 2.16.840.1.959981.3.579.2. 462 Unknown [id number] 2.16.840.1.448639.3.579.2. 462 Unknown [id number] 2.16.840.1.262145.3.579.2. 462 Unknown [id number] 2.16.840.1.729603.3.579.2. 462 Unknown [id number] 2.840.1.077518.3.579.2. 462 Unknown [id number] 2.16.840.1.230400.3.579.2. 462 Social History Date Type Detail Facility Start: 10-13-2021 End: 10-13-2021 Tobacco smoking status NHIS Unknown if ever smoked [facility] Start: 1965 Sex Assigned At Female [facility] Start: 1965 Sex Assigned At Not on file [facility] Start: 02-05-2024 End: 11-08-2024 Gender identity Not on file [facility] Start: 01-31-2024 Gender identity Identifies as female gender (finding) [facility] Start: 01-31-2024 Sexual orientation Heterosexual (finding) [facility] Start: 02-05-2024 End: 08-15-2024 Tobacco smoking status NHIS Never smoked tobacco [facility] Start: 02-05-2024 Tobacco use and exposure Smokeless tobacco non-user [facility] Start: 02-05-2024 End: 06-04-2024 Alcoholic beverage intake Current drinker of alcohol (finding) [facility] Start: 02-05-2024 End: 11-08-2024 History of Social function [facility] How hard is it for y ou to pay for the very basics like food, housing, medical care, and heating Somewhat hard [facility] (I/We) worried rosemarie er (my/our) food would run out before (I/we) got money to buy more. Never true [facility] In the past 12 month s, has lack of transportation kept you from medical appointments or from getting medications? No [facility] Start: 07-15-2024 End: 12-03-2024 Alcoholic beverage intake Ex-drinker (finding) [facility] Start: 01-26-2024 End: 10-04-2024 Sex Female (finding) [facility] Medical Equipment Procedure Code Equipment Code Equipment Origin al Text Equipment Identifier Dates [facility] [employer]vue Airguard 6fr 1 Lumen Low - [id number] Start: 02-16-2024 Port [employer] S evans [employer]vue Airguard 6fr 1 Lumen Low - [id number] Start: 11-26-2024 Goals Date Patient Goal Desired Activity /State Mental Status Date Assessment Result Facility 10-15-2021 Cognitive function Voice/Name [facility] Work Phone: Clinical Notes 01-30-2024 to 12-13-2024 Lucy Harrington RN - 12/13/2024 11:00 AM Srini Galo RN - 12/13/2024 10:00 AM ROME Son - 12/13/2024 10:00 AM EDTPatient InstructionsAttachmentsDischarge InstructionsAttachments Note Date & Type Note Facility 12-13-2024 History of Presen t illness Narrative Milad Lane seen in Medical Oncology clinic today. Nursing documentation of today's clinic visit reviewed. Pt's Sodium was low (128) on initial lab draw. Additional serum and urine labs obtained and results pending. Pt coming to infusion clinic for Zometa infusion. Waiting on results before discharging pt. Repeat Sodium = 129. Radha Roberts CNP updated. 1 L normal saline hydration ordered. Hydration completed. Radha Roberts CNP at bedside to update pt with plan of care, provide lab scripts and AVS. Milad Lane received Zometa infusion and 1 L normal saline hydration today. Pt tolerated well. Patient scheduled for telehealth visit with EMERALD on 12/27/2024. Patient's next appointment has been verified by RN. documented in this encounter [facility] 12-13-2024 History of Presen t illness Narrative Patient declined a medical mechanical adjuster for sensitive exam. Clinic to Infusion Handoff Report S: Milad Lane is coming from Exam to Infusion for Zometa (pt brought dental clearance today, sent to [facility] to be scanned into EMR). Na = 128, recheck = 129, osmo, urine sent B: Clinic Nurse (Shefali Galo RN) reviewed the following: Allergies Reviewed: yes Medications Reviewed: yes Is patient accessed: Yes, PIV Verified the following are signed/documented prior to patient discharge from clinic: Chemotherapy/Supportive/Therapy Plans yes Toxicity Assessment completed: ECOG yes and Bisphosphonate yes Add on Products: No Research Patient: No A: Reviewed patient assessment and outstanding items. Labs within treatment parameters yes If no, MD/PRADEEP notified of labs outside treatment parameters N/A Vital Signs within treatment parameters yes OK to Treat (if labs/vitals/ECOG outside of parameters) N/A Report called to brim raiser if acute changes Yes to Lucy Bal RN Fall Risk? no Bisphosphonate/Denosumab Assessment Patient's Oral Assessment: own teeth Patient compliant with oral hygiene program including: Regular Brushing/Flossing: Yes Dental exam every 6 months: Yes Is patient experiencing any dental issues: Dental Pain/Swelling/Loose Teeth: No Ulcers in mouth/Exposed bone in mouth/Irritated areas around dentures or plates: No Any dental extractions since last visit: No Calcium supplementation: Patient is receiving anti-resorptive bone agent (zolendronic acid, pamidronate, or denosumab) for bone metastasis or osteopenia/osteoporosis and is taking at least one Calcium Carbonate 600 mg + Vitamin D 400 IU tablet daily (or equivalent): Yes, vitamin D QOWk, instructions given to start calcium supplement as well. R: Milad Lane has her After Visit Summary (AVS), completed her check out, and discharged to the infusion unit. For questions please call: Shefali Galo RN History of Present Illness: Ms Lane presented to our clinic for breast cancer. She started to feel a mass in her right breast in January 2024. Bilateral diagnostic mammogram and right breast ultrasound showed 1.9x2.2x1.7 cm mass in right breast at 3 position along with 2.4x1.2x1.5 cm abnormal right axillary node. Biopsy of the mass showed IDC, grade 3, ER > 95%, VA 32%, HER2 equivocal, FISH negative, Ki-67 75%. Biopsy of the axillary node was positive for carcinoma. She has been referred to genetics. We discussed that it is reasonable to try to downstage the axilla with neoadjuvant chemo based on grade 3 and high Ki-67. We discussed possible side effects of ddACT and she agreed to proceed. We also briefly discussed adjuvant treatment with AI and abemaciclib. Breast MRI done on 02/21/24 showed 3.3x3x2.4 cm cancer in right breast, enlarged right axillary and internal mammary nodes. Bone scan done on 02/13/[address] Scan C/A/P done on 02/13/24 showed possible hepatic hemangiomas. MRI-abdomen done on 02/25/24 showed hepatic hemangiomas. TTE done on 02/15/24 showed EF 60-65%. Port was placed on 02/16/24. She started ddAC on 02/23/24. Genetic testing was negative. She competed neoadjuvant ddAC in July 2024. She underwent right lumpectomy and SLNB that showed complete response on 08/09/24. She completed radiation locally on 11/04/24. We discussed endocrine therapy and its side effects. She has agreed to proceed with abemaciclib and anastrozole (started both around 10/2024). We also discussed the role of Zometa. She obtained dental clearance. Plan for cycle 1 Zometa 12/13/2024 Interval history: Cycle 2 Abema + anastrozole and ask for dental clearance for Zometa (today)??? She had last dose of Abema on 12/13/2024 She has had SOB with exertion with chemotherapy and overall it has gotten better. She has some SOB with stairs, but quickly recovers. She denies SOB at rest. She completed radiation locally 11/04/2024 and did not have a cough then. She has fatigue since radiation. Able to care for herself. She is working three full days now as well. She was recently placed on lisinopril on 11/05/2024 and has noticed new cough at night, since starting this medication. Denies sore throat, denies allergies. Has seasonal allergies. She has had reflux in past but none recently. Denies fevers, chills. Mood and energy is good. Her energy is not back to herself yet but slowly improving. She had diarrhea once, but is very well controlled with immodium. Her local radiology MD wanted someone to keep close eye on internal mammary nodes and was wondering if CT chest could be arranged every 4 months to monitor (emailed Dr. Joseph). Has numbness/tingling in fingers and toes that is the same since chemotherapy. She has seen in PT and they gave her exercises. She might try taking 600 mg gabapentin at night to help her with the discomfort, instead of 300 mg TID> She is not really taking the afternoon dose. Denies new joint since starting anastrozole. Having vaginal dryness. Will try coconut oil and replens. Review of Systems: 11 point ROS is positive for fatigue, arthralgia, peripheral neuropathy and hot flashes. Physical Exam: Vitals: Smoking Status Never BP 123/85 Pulse 66 Temp 97.8 F (36.6 C) Resp 16 Wt 106.7 kg (235 lb 3.2 oz) SpO2 100% BMI 39.14 kg/m Smoking Status Never Patient's Current Performance Status 0 General/Constitutional: Well developed, well nourished female, No acute distress. HEENT: Head: Normocephalic and atraumatic. Sclerae are anicteric. Neck: Supple, non-tender, with no lymphadenopathy. Cardiac: Regular rate and rhythm. Normal S1, S2. No murmurs, rubs or gallops. Pulmonary/Chest: Lungs are clear to auscultation bilaterally. No wheezes, rhonchi or rales noted. Abdominal: Abdomen with normoactive bowel sounds in all four quadrants. Soft, non-tender, non-distended. Extremities: no edema in both legs. Skin: Skin is warm and dry. She is not diaphoretic. Psychiatric: Appropriate mood and affect. Breast exam: done in presence of a mechanical adjuster: right lumpectomy scar is healed, no signs of infection. Impression and Recommendations: Right breast IDC, cT2N3b, grade 3, ER > 95%, VA 32%, HER2 equivocal, FISH negative, Ki-67 75%. We discussed that it is reasonable to try to downstage the axilla with neoadjuvant chemo based on grade 3 and high Ki-67. We discussed possible side effects of ddACT and she agreed to proceed. We also briefly discussed adjuvant treatment with AI and abemaciclib. Breast MRI done on 02/21/24 showed 3.3x3x2.4 cm cancer in right breast, enlarged right axillary and internal mammary nodes. Bone scan done on 02/13/[address] Scan C/A/P done on 02/13/24 showed possible hepatic hemangiomas. MRI-abdomen done on 02/25/24 showed hepatic hemangiomas. TTE done on 02/15/24 showed EF 60-65%. Port was placed on 02/16/24 and removed 10/2024 She started ddAC on 02/23/24. Genetic testing was negative. TTE was done on 06/14/24 due to LL edema. It showed EF 55-60%. Edema may be due to Taxol. She competed neoadjuvant ddAC in July 2024. She underwent right lumpectomy and SLNB that showed complete response on 08/09/24. She completed radiation locally on 11/04/24. She states that the neuropathy in her hands have worsened since surgery. She continues to take gabapentin 300 mg TID (filled 11/18/2024) and no issues with dropping things. She does not take afternoon gabapentin dose and she might try to take 600 mg gabapentin at night as her pain is worse at night. We discussed endocrine therapy and its side effects. She has agreed to proceed with abemaciclib and anastrozole (started both around 10/2024). We also discussed the role of Zometa and side effects which include flu-like symptoms. She obtained dental clearance. DEXA scan done on 11/08/24 showed osteopenia. Vitamin D checked on 11/08/24 was 29.5. MMG arranged and then Surg. Onc 01/27/2025 12/13/2024: Is tolerating Abema and anastrozole well. ANC is 1110. Labs and symptoms stable for cycle 2 Abema. Reports overall her SOB has improved. She has cough intermittently which is worse at night (could be related to LIsinopril which she recently or possibly reflux). She will call her PCP to arrange follow up. Diarrhea is controlled well with immodium. 12/13/2024: Today we discussed the role of zometa for treatment of osteopenia and prevention of recurrence of breast cancer. Has dental clearance. Plan for cycle 1 Zometa. We did discuss that there is a small subset of patients who have infusion reaction consisting of fever, aches and pains that can persist for a couple of days after infusion. We also informed them that before each dose they will have renal function monitored to make sure they have adequate kidney function to proceed with therapy. Patient encouraged to continue taking Calcium and vitamin D while on Zometa therapy. Patient's questions were addressed. Denies jaw or dental pain today. Hyponatremia could be related to diarrhea, although she had it only way day and was controlled with immodium. She reports feels diizzy at times when getting up. Na was 128, recheck is 129. Patient is asymptomatic. -She was recently started on Zepbound and has been on thiazide diuretic for years. She reports her oral intake has decreased related to Zepbound, but feels she is drinking well. Continues to void well. -12/13/2024: Serum Osmolality is 266 -12/13/2024:Urine Na and Urine Osm completed -Will give 1 L fluid today. She is aware to hold her thiazide. Patient arranged to check Chem6 on 12/16 locally and instructed to call her PCP for close follow up. -Reviewed if she becomes confused, lethargic then go to local ER over weekend. -Left confidential voicemail to patient's PCP Dr. Becker of labs (faxed lab results on 12/16/2024) and to please arrange follow up with patient. Labs locally in 2 weeks on 12/26/2024. Follow-up in 2 weeks as telemed visit for Cycle 2 day 15 Abema + Anastrozole on 12/27/2024. Cycle 2 Zometa will be due 05/30/2025 I spent greater than 50 minutes in direct care and consultation with the patient, reviewing current symptoms, completing physical exam, discussing lab results, and devising a plan of care using shared medical decision making with the patient. Also calling her PCP and faxing them her current lab results. Radha Roebrts, COUNTY HOME DEMONSTRATION AGENT-SERVICE ADMINISTRATOR [place] [phone] documented in this encounter [facility] 12-13-2024 Instructions Shefali Galo RN - 12/13/2024 10:00 AM EDT Images from the original note were not included. Please get labs (chem6) checked locally on 12/16/2024 For Cycle 2 Day 15 Abema please get labs locally on 12/26/2024 and then you will have Phone visit with Dr. Joseph on 12/27/2024 When will my phone call be returned? Our providers will do their best to answer your call quickly. You should expect a returned call within 24 hours. If you have an emergency, please call 911 or go to your local emergency department. When will my Luqit message be returned? Our providers will do their best to answer your questions quickly. However, there are certain times when you won t get a response. Our providers won t respond to messages on nights, weekends or holidays. Luqit messages are not for urgent issues, and you can expect a response within 3 business days. If you have an emergency, please call 911 or go to your local emergency department. A business day is Monday through Monday 8 a.m. to 4:30 p.m. When are my results released? Patients have access to most test results as soon as they are available. These results and notes could include sensitive information such as a cancer diagnosis. You always have the choice to wait to view your information in Luqit until you speak with your provider. When will my FMLA/Paperwork be returned? Please allow 7-10 business days for completion of FMLA/Paperwork to be returned. Patient Satisfaction Surveys: Your opinion matters! If you receive a patient satisfaction survey in the mail we would appreciate your thoughts. Please help us get better! Store controlled substances (for example - opioids/narcotics, certain stimulants, certain sedatives, etc.) in a locked cabinet or in an area only accessible to you. When you no longer need the controlled substances that have been prescribed for you, do NOT bring them to [facility]. We are NOT permitted under law to accept controlled substances from a patient for disposal. You may dispose of controlled substances, as well as other old or zynq-rvm-zsiejjf and prescription medications, by one of the safe methods listed below: A drug take-back program - this is the best method to dispose of medications safely. You can locate the take-back program closest to you @ https://takebackday.[facility].gov under the COLLECTION SITE LABORER PIPELINES tab. The [facility] of pharmacy homepage also has an RX Disposal Ground Products Director tool @https://www.pharmacy.[place].gov/ Compliance/DrugDisposal. If you cannot locate a drug take-back program, never dispose of medications down the sink or toilet. Instead, place the medication in a sealable storage bag and mix with damp coffee grounds, dirt, or cat litter, then seal the bag, and dispose of in your regular trash. If you have or unused cancer medication or hazardous drugs (this does not include Tamoxifen, Anastrozole, Letrozole or Exemestane), these may be potentially donated to our [facility] repository drug program and then given to other patients who are uninsured or underinsured. Ask your [facility] pharmacist about this program. The following attachments cannot be sent through Care Everywhere.Non-Hormonal Products to Help with Vaginal Dryness (Jaison Antonio) (Nigerien)Supplements: Calcium + Vitamin D for Breast Cancer Survivoris (Jaison Antonio) (Nigerien)documented in this encounter [facility] 11-26-2024 Procedure note Associated Ord er(s): GENERAL PROCEDURE INTERVENTIONAL RADIOLOGY BRIEF PROCEDURE NOTE PROCEDURE PERFORMED BY: Dr. Mai PROCEDURE DATE: 11/26/2024 11:56 AM PRE PROCEDURE DIAGNOSIS: History of breast cancer; patient is finished with treatment and no longer needs the port. POST PROCEDURE DIAGNOSIS: History of breast cancer; patient is finished with treatment and no longer needs the port. PROCEDURE: Port Removal CONSENT: Informed consent was obtained prior to the procedure after discussion of the risks, benefits, and alternatives and expected outcomes were discussed; consent placed in chart. UNIVERSAL PROTOCOL: Preprocedure verification is complete- patient verified and consents confirmed. ANESTHESIA: Moderate Sedation ESTIMATED BLOOD LOSS: < 5 mL FINDINGS: Nonpurulent port pocket, sutured closed in one layer. CONDITION: Stable. Patient tolerated procedure well. COMPLICATIONS: None. SPECIMEN: None IMPRESSION/PLAN: Successful port removal. [facility] Work Phone: 11-26-2024 Procedure note Associated Ord er(s): GENERAL PROCEDURE INTERVENTIONAL RADIOLOGY BRIEF PROCEDURE NOTE PROCEDURE PERFORMED BY: Dr. Mai PROCEDURE DATE: 11/26/2024 11:56 AM PRE PROCEDURE DIAGNOSIS: History of breast cancer; patient is finished with treatment and no longer needs the port. POST PROCEDURE DIAGNOSIS: History of breast cancer; patient is finished with treatment and no longer needs the port. PROCEDURE: Port Removal CONSENT: Informed consent was obtained prior to the procedure after discussion of the risks, benefits, and alternatives and expected outcomes were discussed; consent placed in chart. UNIVERSAL PROTOCOL: Preprocedure verification is complete- patient verified and consents confirmed. ANESTHESIA: Moderate Sedation ESTIMATED BLOOD LOSS: < 5 mL FINDINGS: Nonpurulent port pocket, sutured closed in one layer. CONDITION: Stable. Patient tolerated procedure well. COMPLICATIONS: None. SPECIMEN: None IMPRESSION/PLAN: Successful port removal. documented in this encounter [facility] 11-26-2024 Nurse Note 1149 : Patient arrived to [facility] from [facility] via gurney. Vital signs taken and stable. Patient given drink and snacks. Family called to bedside. Patient assessed. 1200 : Patient and family member given copy of AVS, all prescriptions, and supplies. Patient and family member present for discharge teaching. All questions answered at this time. 1227 : Patient meets [facility] discharge criteria and discharged per MD order to home. Patient taken by wheelchair to awaiting car. All belongings gathered with patient. Family/friend to drive patient home and care for patient 24 hours post-op. [facility] 11-26-2024 Miscellaneous Notes Formattin g of this note might be different from the original. 1149 : Patient arrived to [facility] from [facility] via gurney. Vital signs taken and stable. Patient given drink and snacks. Family called to bedside. Patient assessed. 1200 : Patient and family member given copy of AVS, all prescriptions, and supplies. Patient and family member present for discharge teaching. All questions answered at this time. 1227 : Patient meets [facility] discharge criteria and discharged per MD order to home. Patient taken by wheelchair to awaiting car. All belongings gathered with patient. Family/friend to drive patient home and care for patient 24 hours post-op. Interventional Radiology procedure completed with IR Attending MD Dr Mai of left sided power port removal with all components intact. Pt tolerated procedure with local numbing agent and IV sedation medication. Pt to travel to [facility] for post procedure recovery. Post procedure orders in place. Called regarding appointment for procedure this upcoming Monday in . Arrival time 0900 in registration office. Last solid food midnight. Last water midnight. May take all prescription medications with sip of H2O no later than 0800. Medication exceptions- none. Reminder- responsible person to drive home. Callback number for questions or problems [phone]. documented in this encounter [facility] 11-26-2024 Nurse Note Interventional Radiology procedure completed with IR Attending MD Dr Mai of left sided power port removal with all components intact. Pt tolerated procedure with local numbing agent and IV sedation medication. Pt to travel to [facility] for post procedure recovery. Post procedure orders in place. [facility] 11-26-2024 Nurse Surgical operation note Patient admits to radiation last November 04. Patient admits to L port. Patient denies hx of seizure or stroke. [facility] Note Patient admits to radiation last November 04. Patient admits to L port. Patient denies hx of seizure or stroke. documented in this encounter [facility] 11-26-2024 Hospital Discharg e instructions Sav Summers, COUNTY HOME DEMONSTRATION AGENT-SERVICE ADMINISTRATOR - 11/26/2024 9:04 AM EDT Home Care after Sedation You have been given medicines during your procedure that might make you sleepy. To prevent problems: 1. Rest for the remainder of the day. You should have someone drive you home and be available for the next [address] 3. Do not drink alcoholic beverages today. 4. Do not make any important business or legally binding decisions today. 5. Do not work around the stove, machinery or power equipment today. 6. The medicines used for sedation may make you feel nauseated. Start with clear liquids, which is anything that you can see through such as tea, jello, broth and shreyas kalin. As you feel better you may add soft foods such as pudding and ice cream. When you no longer feel nauseated you may try your normal diet. You should be back to eating your normal meals after 24 hours. Removal of Your Port Keep the dressings clean and dry. Do not remove the steri-strips (small tapes). They will fall off on their own in about 10 to 14 days. Keep the incision areas clean, dry and open to the air until they heal. The incisions should heal in 10 to 14 days. When to Call Your Doctor or Medical Team Here are signs you need to watch for at the area where the catheter was removed. -Signs of Bleeding Watch for bleeding at the incision areas Oozing blood Swelling under the skin Bruising around the incision areas If you have bleeding, apply firm pressure at the incision site, sit upright and remain still. To help apply firm pressure, roll up a dry washcloth and place it over the site. Call your doctor. -Signs of Infection Chills or fever of 100.4 degrees Fahrenheit (38 degrees Celsius) or higher Redness, tenderness, and swelling around the incision areas Foul smelling drainage or pus from the incision areas Care of the Wound You will need to leave the gauze dressing on for 48 hours, then you may remove the dressing. If Your Wound Was Closed With Steri-Strips (small tape strips) If you have Steri-Strips (small tape strips) do not remove them. They will fall off on their own in about 10 to 14 days. If you have a small amount of drainage from an incision, put on a new, sterile 4 x 4 inch gauze dressing. Change the dressing every 24 hours. Leave the dressing off when the drainage stops. You may shower 2 days after your port was removed. Follow the instructions below when you plan to take a shower to keep the incision areas dry if you have Steri Strips: -Carefully cover both incisions with plastic wrap (Saran Wrap or Bmovy-u-Jqch). If you use Hbwef-X-Njew, be sure to have a gauze pad over the steri-strip tapes so the Qvrxd-q-Ajml does not pull the steri-strips off. - Use tape to seal all around the edges, so water does not get under the plastic wrap. - After your shower, remove the plastic wrap and gently pat the incisions dry. If Your Wound Was Closed with Dermabond (glue): Your doctor used special skin glue called Dermabond to hold your wound together instead of using stitches, steri-strips or robyn. The glue film will loosen from your skin on its own as the wound heals. Follow these care guidelines for Dermabond (glue): Keep the wound dry. Do not pick, scratch or rub the glue on the wound, so it does not loosen before the wound heals. Do not soak your wound in water until the glue film falls off. Avoid swimming or using a hot tub while the glue is in place. When you shower or bathe, let water run over the wound but do not rub. It is okay to get the Dermabond wet in the shower. Pat the wound gently with a soft towel to dry. Avoid direct sunlight to the wound and do not use tanning beds or lamps with the glue film in place. Do not apply any cream, lotion or ointment to the skin near the wound. It could loosen the glue before the wound heals. Do not use petroleum based ointments over the Dermabond-they will dissolve Dermabond. Do not apply any tape, sticky dressing, alcohol or Chloraprep to the glue site for the first 7 to 10 days. These could loosen the glue. Activity Guidelines After Port Removal For about 2 weeks after your port is removed, you will need to hold off (limit) some activities while your incisions are healing. Here are precautions you will need to follow: Do not do any strenuous exercises. Do not do activities or exercises that involve reaching or stretching your chest and neck areas. Do not lift anything heavier than 10 pounds (a gallon of milk is about 8lbs). Talk to your doctor or nurse about when you can return to your normal activities. Interventional Radiology Contact Information If you have questions or concerns, please call Interventional Radiology at After-Hours or on Weekends, please call the Hospital Cash Van Salesperson at [phone] and ask them for the Interventional [facility] On-Call documented in this encounter [facility] 11-26-2024 History and physical note Interventional Radiology Pre Procedure H&P Referring Provider Lucio Joseph MD Chief Complaint- Here for port removal Procedure- Removal [facility] SLPP Indication for Procedure- Completion of chemotherapy for breast cancer Code Status- Full Past Medical History: Diagnosis Date Anxiety Essential hypertension, benign Goiter Malignant neoplasm of overlapping sites of right breast in female, estrogen receptor positive 01/19/2024 IDC, ER+/VA+/HER2 equivocal Uterine fibroid Past Surgical History: Procedure Laterality Date MASTECTOMY PARTIAL (LUMPECTOMY) Right 08/09/2024 Laterality: Right; Surgeon: Leonila An MD; Location[facility] PERIOP BX LYMPH NODE AXILLARY DEEP Right 08/09/2024 Laterality: Right; Surgeon: Leonila An MD; Location: [facility] PERIOP INJECTION RADIOACTIVE TRACER FOR SENTINEL NODE IDENTIFICATION Right 08/09/2024 Laterality: Right; Surgeon: Leonila An MD; Location: [facility] PERIOP IDENTIFICATION SENTINEL NODE INTRAOPERATIVE ADD-ON PX Right 08/09/2024 Laterality: Right; Surgeon: Leonila An MD; Location: [facility] PERIOP EXCISIONAL BREAST BIOPSY Right 08/08/2024 EXCISIONAL BREAST BIOPSY Right 08/08/2024 INSERTION CVC TUNNELED W/ PORT PUMP Left 02/16/2024 Laterality: Left; Surgeon: Leonila An MD; [facility] GUIDANCE U/S VASCULAR ACCESS PROCEDURES ADD-ON PX Left 02/16/2024 Laterality: Left; Surgeon: Leonila An MD; Location: [facility] PERIOP GUIDANCE FLUOROSCOPIC PLACEMENT REPLACEMENT REMOVAL OF CVAD ADD-ON PX Left 02/16/2024 Laterality: Left; Surgeon: Leonila An MD; Location: [facility] CORE BIOPSY OF THE BREAST Right 01/19/2024 Malignant neoplasm of overlapping sites of right breast in female, estrogen receptor positive SECTION 1988 SECTION 1987 SECTION 1983 CHOLECYSTECTOMY 1983 HYSTERECTOMY OOPHORECTOMY LAVERN AND BSO 40's Social History Tobacco Use Smoking status: Never Smokeless tobacco: Never Vaping Use Vaping status: Never Used Substance Use Topics Alcohol use: Not Currently Alcohol/week: 1.0 - 3.0 standard drink of alcohol Types: 1 - 3 Standard drinks or equivalent per week Drug use: Never Allergies Allergies Allergen Reactions Metronidazole Hives Tegaderm Ag Mesh [Silver] Redness Please use IV 3000 Prior to Admission medications Medication Sig Start Date End Date Taking? Authorizing Provider abemaciclib (Verzenio) 150 MG tablet Take 1 tablet by mouth 2 times daily. Swallow tablets whole; do not crush, chew, or split. Start cycle 1 on 11/15/24 11/13/24 Lucio Joseph MD Acetaminophen 325 MG tablet Take 3 tablets by mouth every 8 hours for 7 days. 08/09/24 08/22/24 Gabriela Davis MD anastrozole 1 MG tablet Take 1 tablet by mouth daily. May take without regard to food. Dx: Breast Cancer 11/08/24 Lucio Joseph MD B Complex Vitamins (VITAMIN B COMPLEX PO) Take 1 tablet by mouth daily. Historical Provider ergocalciferol 1.25 MG (77625 UT) capsule Take 1 capsule by mouth Every other week. Historical Provider Gabapentin (Neurontin) 300 MG capsule Take 1 capsule by mouth 3 times daily. 11/18/24 03/18/25 Lucio Joseph MD hydroCHLOROthiazide 25 MG tablet Take 1 tablet by mouth daily. Historical Provider Ibuprofen 400 MG tablet Take 1 tablet by mouth every 8 hours. 02/16/24 Autumn Gardner PA-C levothyroxine 50 MCG tablet Take 1 tablet by mouth daily. Historical Provider Lidocaine-prilocaine 2.5-2.5 % cream Apply 1 Application topically As directed. Apply thick layer 30-60 minutes before needle stick, then cover area 07/05/24 Lucio Joseph MD Lisinopril 10 MG tablet Take 1 tablet by mouth daily. Historical Provider Loperamide 2 MG capsule Take 2 caps at first sign of diarrhea, then 1 cap 4 hours OR after each loose stool (and 2 caps every 4 hours at night) until no loose stools for 8 hours. Resume if diarrhea returns. 11/08/24 Lucio Joseph MD Loratadine 10 MG tablet Take 1 tablet by mouth daily. Historical Provider magnesium oxide 400 MG tablet Take 1 tablet by mouth daily. Historical Provider [place]-3 Fatty Acids (OMEGA 3 PO) Take 650 mg by mouth daily. Historical Provider Ondansetron 8 MG tablet Take 1 tablet by mouth 2 times daily as needed for Other. 11/08/24 Lucio Joseph MD traMADol 50 MG tablet Take 1 tablet by mouth every 6 hours as needed for breakthrough pain for up to 7 days. 08/09/24 08/16/24 Gabriela Davis MD vitamin E 400 units capsule Take 2 capsules by mouth daily. Historical Provider Review of Systems Denies the following: Arrhythmias, bleeding disorders, asthma, COPD, MAURI, seizure disorder, DM Denies previous problems with sedation or topical anesthetics Denies problems lying flat or prone Gen - denies fevers or antibiotics Cardiovascular - denies CP; denies palpitations Respiratory - denies SOB Gastrointestinal - denies nausea or vomiting or abdominal pain Renal - denies dysuria, hematuria or flank pain Neuromuscular - denies neuropathy; denies weakness Physical Exam Blood pressure 141/69, pulse 65, resp. rate 14, height 1.651 m (5' 5), weight 110 kg (242 lb 8 oz), SpO2 99%. General: Alert and oriented, in no distress Cardio: S1S2 RRR Lungs: Clear to auscultation bilaterally Neurological: No focal deficits Skin: Bison, warm and dry Port site clean dry no redness or warmth Laboratory Data Lab Results Component Value Date/Time PLATELET 175 11/08/2024 08:43 AM HGB 13.1 11/08/2024 08:43 AM POTASSIUM 4.0 11/08/2024 08:43 AM BUN 11 11/08/2024 08:43 AM CREATSERUM 0.54 11/08/2024 08:43 AM GFR >90 11/08/2024 08:43 AM Impression and Plan 1. Breast cancer s/p LIJ SLPP - Completion of chemotherapy, no longer indicated proceed with removal as planned 2. HTn - SBP acceptable for planned procedure ROME Thakur 11/26/2024 9:01 AM Cosigned by Kaylin Mai MD at 11/26/2024 11:49 AM EDT [facility]24 History and physical note Interventional Radiology Pre Procedure H&P Referring Provider Lucio Joseph MD Chief Complaint- Here for port removal Procedure- Removal [facility] SLPP Indication for Procedure- Completion of chemotherapy for breast cancer Code Status- Full Past Medical History: Diagnosis Date Anxiety Essential hypertension, benign Goiter Malignant neoplasm of overlapping sites of right breast in female, estrogen receptor positive 01/19/2024 IDC, ER+/VA+/HER2 equivocal Uterine fibroid Past Surgical History: Procedure Laterality Date MASTECTOMY PARTIAL (LUMPECTOMY) Right 08/09/2024 Laterality: Right; Surgeon: Leonila An MD; [facility] BX LYMPH NODE AXILLARY DEEP Right 08/09/2024 Laterality: Right; Surgeon: Leonila An MD; [facility] PERIOP INJECTION RADIOACTIVE TRACER FOR SENTINEL NODE IDENTIFICATION Right 08/09/2024 Laterality: Right; Surgeon: Leonila An MD; [facility] PERIOP IDENTIFICATION SENTINEL NODE INTRAOPERATIVE ADD-ON PX Right 08/09/2024 Laterality: Right; Surgeon: Leonila An MD; [facility] EXCISIONAL BREAST BIOPSY Right 08/08/2024 EXCISIONAL BREAST BIOPSY Right 08/08/2024 INSERTION CVC TUNNELED W/ PORT PUMP Left 02/16/2024 Laterality: Left; Surgeon: Leonila An MD; [facility]IOP GUIDANCE U/S VASCULAR ACCESS PROCEDURES ADD-ON PX Left 02/16/2024 Laterality: Left; Surgeon: Leonila An MD; Location[facility] GUIDANCE FLUOROSCOPIC PLACEMENT REPLACEMENT REMOVAL OF CVAD ADD-ON PX Left 02/16/2024 Laterality: Left; Surgeon: Leonila An MD; [facility] CORE BIOPSY OF THE BREAST Right 01/19/2024 Malignant neoplasm of overlapping sites of right breast in female, estrogen receptor positive SECTION 1988 SECTION 1987 SECTION 1983 CHOLECYSTECTOMY 1984 HYSTERECTOMY OOPHORECTOMY LAVERN AND BSO 40's Social History Tobacco Use Smoking status: Never Smokeless tobacco: Never Vaping Use Vaping status: Never Used Substance Use Topics Alcohol use: Not Currently Alcohol/week: 1.0 - 3.0 standard drink of alcohol Types: 1 - 3 Standard drinks or equivalent per week Drug use: Never Allergies Allergies Allergen Reactions Metronidazole Hives Tegaderm Ag Mesh [Silver] Redness Please use IV 3000 Prior to Admission medications Medication Sig Start Date End Date Taking? Authorizing Provider abemaciclib (Verzenio) 150 MG tablet Take 1 tablet by mouth 2 times daily. Swallow tablets whole; do not crush, chew, or split. Start cycle 1 on 11/15/24 11/13/24 Lucio Joseph MD Acetaminophen 325 MG tablet Take 3 tablets by mouth every 8 hours for 7 days. 08/09/24 08/22/24 Gabriela Davis MD anastrozole 1 MG tablet Take 1 tablet by mouth daily. May take without regard to food. Dx: Breast Cancer 11/08/24 Lucio Joseph MD B Complex Vitamins (VITAMIN B COMPLEX PO) Take 1 tablet by mouth daily. Historical Provider ergocalciferol 1.25 MG (92456 UT) capsule Take 1 capsule by mouth Every other week. Historical Provider Gabapentin (Neurontin) 300 MG capsule Take 1 capsule by mouth 3 times daily. 11/18/24 03/18/25 Lucio Joseph MD hydroCHLOROthiazide 25 MG tablet Take 1 tablet by mouth daily. Historical Provider Ibuprofen 400 MG tablet Take 1 tablet by mouth every 8 hours. 02/16/24 Autumn Gardner PA-C levothyroxine 50 MCG tablet Take 1 tablet by mouth daily. Historical Provider Lidocaine-prilocaine 2.5-2.5 % cream Apply 1 Application topically As directed. Apply thick layer 30-60 minutes before needle stick, then cover area 07/05/24 Lucio Joseph MD Lisinopril 10 MG tablet Take 1 tablet by mouth daily. Historical Provider Loperamide 2 MG capsule Take 2 caps at first sign of diarrhea, then 1 cap 4 hours OR after each loose stool (and 2 caps every 4 hours at night) until no loose stools for 8 hours. Resume if diarrhea returns. 11/08/24 Lucio Joseph MD Loratadine 10 MG tablet Take 1 tablet by mouth daily. Historical Provider magnesium oxide 400 MG tablet Take 1 tablet by mouth daily. Historical Provider [place]-3 Fatty Acids (OMEGA 3 PO) Take 650 mg by mouth daily. Historical Provider Ondansetron 8 MG tablet Take 1 tablet by mouth 2 times daily as needed for Other. 11/08/24 Lucio Joseph MD traMADol 50 MG tablet Take 1 tablet by mouth every 6 hours as needed for breakthrough pain for up to 7 days. 08/09/24 08/16/24 Gabriela Davis MD vitamin E 400 units capsule Take 2 capsules by mouth daily. Historical Provider Review of Systems Denies the following: Arrhythmias, bleeding disorders, asthma, COPD, MAURI, seizure disorder, DM Denies previous problems with sedation or topical anesthetics Denies problems lying flat or prone Gen - denies fevers or antibiotics Cardiovascular - denies CP; denies palpitations Respiratory - denies SOB Gastrointestinal - denies nausea or vomiting or abdominal pain Renal - denies dysuria, hematuria or flank pain Neuromuscular - denies neuropathy; denies weakness Physical Exam Blood pressure 141/69, pulse 65, resp. rate 14, height 1.651 m (5' 5), weight 110 kg (242 lb 8 oz), SpO2 99%. General: Alert and oriented, in no distress Cardio: S1S2 RRR Lungs: Clear to auscultation bilaterally Neurological: No focal deficits Skin: Bison, warm and dry Port site clean dry no redness or warmth Laboratory Data Lab Results Component Value Date/Time PLATELET 175 11/08/2024 08:43 AM HGB 13.1 11/08/2024 08:43 AM POTASSIUM 4.0 11/08/2024 08:43 AM BUN 11 11/08/2024 08:43 AM CREATSERUM 0.54 11/08/2024 08:43 AM GFR >90 11/08/2024 08:43 AM Impression and Plan 1. Breast cancer s/p LIJ SLPP - Completion of chemotherapy, no longer indicated proceed with removal as planned 2. HTn - SBP acceptable for planned procedure ROME Thakur 11/26/2024 9:01 AM Cosigned by Kaylin Mai MD at 11/26/2024 11:49 AM EDT documented in this encounter [facility] 11-22-2024 Nurse Note Called regarding appointment for procedure this upcoming Monday in IR . Arrival time 0900 in registration office. Last solid food midnight. Last water midnight. May take all prescription medications with sip of H2O no later than 0800. Medication exceptions- none. Reminder- responsible person to drive home. Callback number for questions or problems [phone]. [facility] 11-08-2024 History of Presen t illness Narrative Milad came in for a new wig fitting on 11/08/24. He let me know that she had unlimited coverage. She also wanted to get something shorter so she can transition to her new hair growing in. She went home with Gypsy in amaretto and cream. I gave her fresh products and care instructions. Billing insurance. [place] documented in this encounter [facility] 11-08-2024 History of Presen t illness Narrative NOTE: VERIFY NAME, , ADDRESS FOR CLIENT(UPDATE CATAPULT) Bra Prosthesis Note Milad Lane is being seen today at [facility] by Cassy Munguia for a Breast Issue. Her surgery was on 08/09/2024. Mastectomy: R__ L__ Bilateral __ Lumpectomy: R_x_ L__ Bilateral__ Reconstruction: Yes__ No _x_ Reconstruction removed Yes__ No__ Orders Orders: Orders reviewed _yes in [facility] ___ Dx code ___c50.811 z17.0 c 50.911__c77.3____ Measurements Bra Band: 43 inches Fullest part of Bust: 24 inches Final band size:44 Final cup size:c Prosthesis/Form: Size: Dispensed dary 217 sz 9 x1 on 11/09/23 Additional Visit information Client Visit: pre/post op___ routine/annual_x__ refit___ reorder/no fitting___. Goals that were discussed with patient: Comfort, support and symmetry. Reason for replacement of bras: First fitting. Reason for replacement of prosthesis: First fitting. Concerns/comments about fitting: Kerrie is a pleasure to fit. She came in wearing a VS molded under wire bra in 38d. I measured 43 so fit with 44 bands which were comfortable.Cira just completed radiation and her right breast was a bit smaller than her left. The [place] 217 sz 9 created the correct symmetry. Cira checked her [employer] benefits and they were quite generous. She said that the Amoena Patricia was very comfortable as well as the other Kate Meredith and Amoena Lilly. Did you instruct client on don/doffing procedures: yes Did you instruct client of care for pros/bras: yes Did you instruct client of warranty/storage of pros/bras: yes Purchased: dary 217 sz 9 x1 , dary 48715 pink Lilly molded x1, dary 31763 wh Lilly 44c x1, dary 68477 bk 44c x1 dary 01588 bk 2xl x1 dary [id number] sa 2 xl x1, ani 5726x bh 44c x1 Product ordered: na DID YOU RELEASE CARE INSTRUCTIONS yes documented in this encounter [facility] 11-08-2024 History of Presen t illness Narrative Shefali Galo RN served as medical mechanical adjuster for sensitive exam. History of Present Illness: Ms Lane presented to our clinic for breast cancer. She started to feel a mass in her right breast in January 2024. Bilateral diagnostic mammogram and right breast ultrasound showed 1.9x2.2x1.7 cm mass in right breast at 3 position along with 2.4x1.2x1.5 cm abnormal right axillary node. Biopsy of the mass showed IDC, grade 3, ER > 95%, VA 32%, HER2 equivocal, FISH negative, Ki-67 75%. Biopsy of the axillary node was positive for carcinoma. She has been referred to genetics. We discussed that it is reasonable to try to downstage the axilla with neoadjuvant chemo based on grade 3 and high Ki-67. We discussed possible side effects of ddACT and she agreed to proceed. We also briefly discussed adjuvant treatment with AI and abemaciclib. Breast MRI done on 02/21/24 showed 3.3x3x2.4 cm cancer in right breast, enlarged right axillary and internal mammary nodes. Bone scan done on 02/13/[address] Scan C/A/P done on 02/13/24 showed possible hepatic hemangiomas. MRI-abdomen done on 02/25/24 showed hepatic hemangiomas. TTE done on 02/15/24 showed EF 60-65%. Port was placed on 02/16/24. She started ddAC on 02/23/24. Genetic testing was negative. Interval history: The patient presented for follow-up of her breast cancer. She competed neoadjuvant ddAC in July 2024. She underwent right lumpectomy and SLNB that showed complete response on 08/09/24. She completed radiation locally on 11/04/24. She reports fatigue, arthralgia, and continued SOB. Her hypertension has improved while on lisinopril. She states that the neuropathy in her hands have worsened since surgery. She continues to take gabapentin. We discussed endocrine therapy and its side effects. She has agreed to proceed with abemaciclib and anastrozole. We also discussed the role of Zometa. She will obtain dental clearance prior to next visit. Review of Systems: 11 point ROS is positive for fatigue, arthralgia, peripheral neuropathy and hot flashes. Physical Exam: Vitals: BP 137/66 Pulse 66 Temp 97.6 F (36.4 C) (Oral) Resp 18 Ht 1.651 m (5' 5) Wt 107.8 kg (237 lb 9.6 oz) SpO2 99% BMI 39.54 kg/m Smoking Status Never Patient's Current Performance Status 0 General/Constitutional: Well developed, well nourished female, No acute distress. HEENT: Head: Normocephalic and atraumatic. Sclerae are anicteric. Neck: Supple, non-tender, with no lymphadenopathy. Cardiac: Regular rate and rhythm. Normal S1, S2. No murmurs, rubs or gallops. Pulmonary/Chest: Lungs are clear to auscultation bilaterally. No wheezes, rhonchi or rales noted. Abdominal: Abdomen with normoactive bowel sounds in all four quadrants. Soft, non-tender, non-distended. Extremities: moderate pitting edema in both legs. Skin: Skin is warm and dry. She is not diaphoretic. Psychiatric: Appropriate mood and affect. Breast exam: done in presence of a mechanical adjuster: right lumpectomy scar is healed, no signs of infection. Impression and Recommendations: Right breast IDC, cT2N3b, grade 3, ER > 95%, VA 32%, HER2 equivocal, FISH negative, Ki-67 75%. We discussed that it is reasonable to try to downstage the axilla with neoadjuvant chemo based on grade 3 and high Ki-67. We discussed possible side effects of ddACT and she agreed to proceed. We also briefly discussed adjuvant treatment with AI and abemaciclib. Breast MRI done on 02/21/24 showed 3.3x3x2.4 cm cancer in right breast, enlarged right axillary and internal mammary nodes. Bone scan done on 02/13/[address] Scan C/A/P done on 02/13/24 showed possible hepatic hemangiomas. MRI-abdomen done on 02/25/24 showed hepatic hemangiomas. TTE done on 02/15/24 showed EF 60-65%. Port was placed on 02/16/24. She started ddAC on 02/23/24. Genetic testing was negative. TTE was done on 06/14/24 due to LL edema. It showed EF 55-60%. Edema may be due to Taxol. She competed neoadjuvant ddAC in July 2024. She underwent right lumpectomy and SLNB that showed complete response on 08/09/24. She completed radiation locally on 11/04/24. She states that the neuropathy in her hands have worsened since surgery. She continues to take gabapentin. We discussed endocrine therapy and its side effects. She has agreed to proceed with abemaciclib and anastrozole. We also discussed the role of Zometa. She will obtain dental clearance prior to next visit. DEXA scan done on 11/08/24 showed osteopenia. Vitamin D checked on 11/08/24 was 29.5. Labs locally in 3 weeks. Follow-up in 5 weeks for labs, clinic visit, Zometa. I spent 45 minutes taking care of the patient with > 50% of the time spent in consultation, education and coordination of care. Documented by Wendi Lin, for Dr. Joseph on 11/08/2024 at 10:08 AM. All medical record entries made by the Delia were at my direction and personally dictated by me, Lucio Joseph MD . I have reviewed and edited the chart and agree that the record accurately reflects my personal performance of the history, physical exam, assessment and plan. I have also personally directed, reviewed, and agree with the discharge instructions. Lucio Joseph. documented in this encounter [facility] 11-08-2024 Instructions Shefali Galo, FERCHO - 11/08/2024 9:00 AM EDT Images from the original note were not included. When will my phone call be returned? Our providers will do their best to answer your call quickly. You should expect a returned call within 24 hours. If you have an emergency, please call 911 or go to your local emergency department. When will my Luqit message be returned? Our providers will do their best to answer your questions quickly. However, there are certain times when you won t get a response. Our providers won t respond to messages on nights, weekends or holidays. Luqit messages are not for urgent issues, and you can expect a response within 3 business days. If you have an emergency, please call 911 or go to your local emergency department. A business day is Monday through Monday 8 a.m. to 4:30 p.m. When are my results released? Patients have access to most test results as soon as they are available. These results and notes could include sensitive information such as a cancer diagnosis. You always have the choice to wait to view your information in Luqit until you speak with your provider. When will my FMLA/Paperwork be returned? Please allow 7-10 business days for completion of FMLA/Paperwork to be returned. Patient Satisfaction Surveys: Your opinion matters! If you receive a patient satisfaction survey in the mail we would appreciate your thoughts. Please help us get better! Store controlled substances (for example - opioids/narcotics, certain stimulants, certain sedatives, etc.) in a locked cabinet or in an area only accessible to you. When you no longer need the controlled substances that have been prescribed for you, do NOT bring them to [facility]. We are NOT permitted under law to accept controlled substances from a patient for disposal. You may dispose of controlled substances, as well as other old or strf-wed-bdnogje and prescription medications, by one of the safe methods listed below: A drug take-back program - this is the best method to dispose of medications safely. You can locate the take-back program closest to you @ https://takebackday.annika.gov under the [employer] tab. The [facility] Board of pharmacy homepage also has an RX Disposal Ground Products Director tool @https://www.pharmacy.[place].gov/ Compliance/DrugDisposal. If you cannot locate a drug take-back program, never dispose of medications down the sink or toilet. Instead, place the medication in a sealable storage bag and mix with damp coffee grounds, dirt, or cat litter, then seal the bag, and dispose of in your regular trash. If you have or unused cancer medication or hazardous drugs (this does not include Tamoxifen, Anastrozole, Letrozole or Exemestane), these may be potentially donated to our [facility] repository drug program and then given to other patients who are uninsured or underinsured. Ask your [facility] pharmacist about this program. The following attachments cannot be sent through Care Everywhere.Aromatase Inhibitor Therapy for Breast Cancer for Females (Jaison Santoro) (Nigerien)Zoledronic Acid (Jaison Santoro) (Nigerien)documented in this encounter [facility] 09-02-2024 Evaluation note Diagnosis Onset Date Resolution Invasive ductal carcinoma of right breast acute September 02, 2024 8:55am Axillary lymphadenopathy acute September 26, 2024 2:33pm Invasive ductal carcinoma of right breast acute September 26, 2024 2:33pm Malignant neoplasm of overlapping sites of right female breast acute October 02 2:46pm [facility] Work Phone: 1(125) 883-206203-03-2025 Evaluation note* Diagnosis Onset Date Resolution Status Admit Date Invasive ductal carcinoma of right breast acute September 02, 2024 8:55am Axillary lymphadenopathy acute September 26, 2024 2:33pm Invasive ductal carcinoma of right breast acute September 26, 2024 2:33pm Malignant neoplasm of overla pping sites of right female breast acute Apr 2024 2:46pm Malignant neoplasm of overla pping sites of right female breast acute Apr 2024 2:38pm Axillary lymphadenopathy acute October 17, 2024 2:28pm Invasive ductal carcinoma of right breast acute October 17, 2024 2:28pm Axillary lymphadenopathy acute October 24, 2024 2:33pm Invasive ductal carcinoma of right breast acute October 24, 2024 2:33pm Axillary lymphadenopathy acute October 31, 2024 2:32pm Invasive ductal carcinoma of right breast acute October 31, 2024 2: 32pm Axillary lymphadenopathy acute November 04, 2024 2:22pm Invasive ductal carcinoma of right breast acute November 04, 2024 2: 22pm [facility] Work Phone: 1(805) 856-817203-03-2025 Evaluation note* Diagnosis Onset Date Resolution Status Admit Date Invasive ductal carcinoma of right breast acute September 02, 2024 8:55am Axillary lymphadenopathy acute September 26, 2024 2:33pm Invasive ductal carcinoma of right breast acute September 26, 2024 2:33pm Malignant neoplasm of overla pping sites of right female breast acute Apr 2024 2:46pm Malignant neoplasm of overla pping sites of right female breast acute Apr il 2024 2:38pm Axillary lymphadenopathy acute October 17, 2024 2:28pm Invasive ductal carcinoma of right breast acute October 17, 2024 2:28pm Axillary lymphadenopathy acute October 24, 2024 2:33pm Invasive ductal carcinoma of right breast acute October 24, 2024 2:33pm Axillary lymphadenopathy acute October 31, 2024 2:32pm Invasive ductal carcinoma of right breast acute October 31, 2024 2: 32pm Axillary lymphadenopathy acute November 04, 2024 2:22pm Invasive ductal carcinoma of right breast acute November 04, 2024 2: 22pm Invasive ductal carcinoma of right breast acute December 02, 2024 9 :23am [facility] Work Phone: 1(909) 884-500202-20-2025 History of Present illness Narrative* Dalia Simpson RN - 08/22/2024 10:15 AM EST Patient offered a medical mechanical adjuster for sensitive exam. Patient declined mechanical adjuster. * Leonila An MD - 08/22/2024 10:15 AM EST Subjective Clinical Care Team: -Referring Provider for today's consult: Emperatriz Jordan MD -Primary Care Provider: Emperatriz Jordan History of Present Illness: Chief Complaint Patient presents with Post Op Visit DOS 08/09, pt denies any concerns and reports some edema in the right axilla. Milad Lane is a 59 y.o. female who presents to the [facility] for post-op follow up. She reports overall doing well after surgery. Pain is controlled. No signs or symptoms of infection. Review of presentation and treatment: 01/12/24 bilateral screening mammogram showed new right breast mass in the central medial anterior aspect of the right breast measuring 1.6 x 1.2 cm. Enlarged axillary lymph nodes were noted. Right axilla showed 2.4 x 1.5 cm irregular appearing lymph node in the right axilla with increased blood flow (BIRADS-5). Biopsy was recommended. 01/19/24 right breast biopsy showed invasive ductal carcinoma, grade 3, ER positive (>95%, strongintensity), VA positive (32%, moderate intensity), HER2 1- 2+ (equivocal) and FISH not amplified. Lymph node positive for metastatic carcinoma consistent with breast primary. 02/01/24 [facility] review of outside films showed suspicious right breast masses having undergonebiopsy at right breast 3:00 and in right axilla. It is not clear if clips were placed or type of clips placed. There is suggestion of possible associated calcifications extending outside the mass butcould represent artifact. This could be reassessed on diagnostic mammogram and repeat US could be performed to get better assessment of true size. 02/05/2024 presents to establish in Surg/Onc breast clinic with Dr. An. She reports right breast lump about six weeks prior to her screening mammogram but thought this may be a benign finding as hermother had a similar symptom in her past. She does report some pain and itching. She has noted somenumbness and tingling in the left arm for about 1 month. She is accompanied by her and daughter to today's visit. 02/13/2024: staging scans (CT C/A/P, nuc bone scan) No evidence of metastatic osseous/pulmonary, or in abdomen/pelvis. There is a 4.7 cm liver lesion - likely hemangioma 02/13/2024: genetic testing - negative 02/21/2024: breast MRI: 3.3x3x2.4 cm cancer in right breast, enlarged right axillary and internal mammary nodes 02/21/24: Dragonfly clip placed in previously biopsied right axillary node 02/23/2024: start neoadjuvant chemotherapy ddAC 02/25/2024: MRI abdomen - benign hepatic hemangioma, no evidence of metastatic disease in the abdomen 02/23/24 - 07/2024 - Completed ddAC and T 07/11/2023: Breast MRI: Partial treatment response with significant decrease in size and conspicuity of biopsy-proven invasive ductal carcinoma of the right breast. Evidence of response to therapy withdecrease in size of the previously seen axillary lymph nodes. Evidence of response to therapy with interval decrease in size of the previously seen abnormal internal mammary lymph node. There is alsosignificant response to therapy of the enhancing soft tissue lesion at the costochondral junction without dominant residual suspicious mass today. Previously noted prevascular lymphadenopathy no longer seen today, may reflect response to therapy. 08/09/2024 - Right localized lumpectomy and targeted axillary node dissection. Final pathology with complete pathologic response. She has a family history of breast cancer in her maternal aunt at age 72 and mother had pancreatic cancer at age 60 with recurrence at 71. He mother also had many skin cancers removed from her face (unknown origin). Her brother had bladder cancer at 72. I have reviewed [facility] medical, surgical and other pertinent history in detail, and have updated where appropriate in the computerized patient record. Oncologic History: Cancer Staging Malignant neoplasm of overlapping sites of right breast in female, estrogen receptor positive Staging form: Breast, AJCC 8th Edition - Clinical stage from 02/05/2024: Stage IIB (cT2, cN1(f), cM0, G3, ER+, VA+, HER2-) - Pathologic stage from 08/09/2024: ypT0, pN0(sn), cM0, GX, ER+, VA+, HER2- Oncology History Malignant neoplasm of overlapping sites of right breast in female, estrogen receptor positive 01/19/2024 Initial Diagnosis Malignant neoplasm of overlapping sites of right breast in female, grade 3, estrogen/progesterone receptor positive, HER2 1-2 + (equivocal), FISH pending with positive axillary lymph node. 02/05/2024 - Cancer Staged Staging form: Breast, AJCC 8th Edition - Clinical stage from 02/05/2024: Stage IIB (cT2, cN1(f), cM0, G3, ER+, VA+, HER2-) 08/09/2024 Surgery Right localized lumpectomy and targeted axillary node dissection. Final pathology with complete pathologic response. Medical/Surgical History: Past Medical History: Diagnosis Date Anxiety Essential hypertension, benign Goiter Malignant neoplasm of overlapping sites of right breast in female, estrogen receptor positive 01/19/2024 IDC, ER+/VA+/HER2 equivocal Uterine fibroid Past Surgical History: Procedure Laterality Date MASTECTOMY PARTIAL (LUMPECTOMY) Right 08/09/2024 Laterality: Right; Surgeon: Leonila An MD; [facility] PERIOP BX LYMPH NODE AXILLARY DEEP Right 08/09/2024 Laterality: Right; Surgeon: Leonila An MD; Location: [facility] INJECTION RADIOACTIVE TRACER FOR SENTINEL NODE IDENTIFICATION Right 08/09/2024 Laterality: Right; Surgeon: Leonila An MD; Location: [facility] PERIOP IDENTIFICATION SENTINEL NODE INTRAOPERATIVE ADD-ON PX Right 08/09/2024 Laterality: Right; Surgeon: Leonila An MD; Location: [facility] PERIOP EXCISIONAL BREAST BIOPSY Right 08/08/2024 EXCISIONAL BREAST BIOPSY Right 08/08/2024 INSERTION CVC TUNNELED W/ PORT PUMP Left 02/16/2024 Laterality: Left; Surgeon: Leonila An MD; Location: [facility] PERIOP GUIDANCE U/S VASCULAR ACCESS PROCEDURES ADD-ON PX Left 02/16/2024 Laterality: Left; Surgeon: Leonila An MD; Location: [facility] PERIOP GUIDANCE FLUOROSCOPIC PLACEMENT REPLACEMENT REMOVAL OF CVAD ADD-ON PX Left 02/16/2024 Laterality: Left; Surgeon: Leonila An MD; Location: [facility] PERIOP CORE BIOPSY OF THE BREAST Right 01/19/2024 Malignant neoplasm of overlapping sites of right breast in female, estrogen receptor positive SECTION 1988 SECTION 1987 SECTION 1983 CHOLECYSTECTOMY 1983 HYSTERECTOMY OOPHORECTOMY LAVERN AND BSO 40's Family/Social History: Family History Problem Relation Age of Onset Cancer- Other Mother 60 pancreatic- 60, recurrance at 71. Multiple skin cancers pt thinks melanoma Cancer- Other Brother bladder passed at age 72 Cancer- Other Paternal Grandmother unknown type passed at age 39 Breast Cancer Maternal Aunt 76 recently diagnosed Cancer Maternal Uncle unknown type Cancer Maternal Uncle unknown type Breast Cancer Maternal Cousin 60 - 69 Leukemia Maternal Cousin 60 - 69 Ovarian Cancer Neg Hx Uterine Cancer Neg Hx Social History Socioeconomic History Marital status: Tobacco Use Smoking status: Never Smokeless tobacco: Never Vaping Use Vaping status: Never Used Substance and Sexual Activity Alcohol use: Not Currently Alcohol/week: 1.0 - 3.0 standard drink of alcohol Types: 1 - 3 Standard drinks or equivalent per week Drug use: Never Sexual activity: Yes Partners: Male control/protection: Hysterectomy 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 Patient denies hormonal therapy at this time. BREAST (GENERAL): Patient admits to self-breast exams and does them several times per month. Date of patient's first mammogram: Age 39 Date of most recent mammogram: 01/12/2024 Bra/Cup Size: 38DD BREAST(HISTORICAL BIOPSY/THERAPY/TREATMENT) Patient admits to previous breast biopsy(s). Patient admits to being told they personally have breast cancer or a breast malignancy. Patient denies chemotherapy, hormone therapy or radiation therapy during the last month. Social Drivers of Health Financial Resource Strain: Low Risk (08/22/2024) Overall Financial Resource Strain (CARDIA) Difficulty of Paying Living Expenses: Not hard at all Food Insecurity: No Food Insecurity (08/22/2024) NCSS - Food Insecurity Worried About Running Out of Food in the Last Year: No Ran Out of Food in the Last Year: No Transportation Needs: No Transportation Needs (08/22/2024) NCSS - Transportation Lack of Transportation: No Medications/Allergies/Immunizations: Her current medication(s) include has a current medication list which includes the following prescription(s): Acetaminophen 325 MG tablet, B Complex Vitamins (VITAMIN B COMPLEX PO), ergocalciferol 1.25 MG (29522 UT) capsule, Gabapentin (Neurontin) 300 MG capsule, hydroCHLOROthiazide 25 MG tablet, Ibuprofen 400 MG tablet, levothyroxine 50 MCG tablet, Loratadine 10 MG tablet, magnesium oxide 400 MGtablet, vitamin E 400 units capsule, Lidocaine-prilocaine 2.5-2.5 % cream, [place]-3 Fatty Acids (OMEGA 3 PO), and traMADol 50 MG tablet. Allergies: Metronidazole and Tegaderm ag mesh [silver], Immunizations: Immunization History Administered Date(s) Administered [id number] COVID-19 monovalent vaccine, mRNA, Moderna, 50 mcg/0.25 mL booster 07/21/2020, 08/18/2020 Influenza Vaccine 05/24/2024 Social History Socioeconomic History Marital status: Spouse name: Not on file Number of children: Not on file Years of education: Not on file Highest education level: Not on file Occupational History Not on file Tobacco Use Smoking status: Never Smokeless tobacco: Never Vaping Use Vaping status: Never Used Substance and Sexual Activity Alcohol use: Not Currently Alcohol/week: 1.0 - 3.0 standard drink of alcohol Types: 1 - 3 Standard drinks or equivalent per week Drug use: Never Sexual activity: Yes Partners: Male control/protection: Hysterectomy Other Topics Concern Not on file 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 Patient denies hormonal therapy at this time. BREAST (GENERAL): Patient admits to self-breast exams and does them several times per month. Date of patient's first mammogram: Age 39 Date of most recent mammogram: 01/12/2024 Bra/Cup Size: 38DD BREAST(HISTORICAL BIOPSY/THERAPY/TREATMENT) Patient admits to previous breast biopsy(s). Patient admits to being told they personally have breast cancer or a breast malignancy. Patient denies chemotherapy, hormone therapy or radiation therapy during the last month. Social Drivers of Health Financial Resource Strain: Low Risk (08/22/2024) Overall Financial Resource Strain (CARDIA) Difficulty of Paying Living Expenses: Not hard at all Food Insecurity: No Food Insecurity (08/22/2024) NCSS - Food Insecurity Worried About Running Out of Food in the Last Year: No Ran Out of Food in the Last Year: No Transportation Needs: No Transportation Needs (08/22/2024) NCSS - Transportation Lack of Transportation: No Physical Activity: Not on file Stress: Not on file Social Connections: Not on file Personal Safety: Not on file Housing Stability: Not on file Review of Systems: Review of Systems Constitutional: Negative. Respiratory: Negative. Cardiovascular: Negative. Breasts: see HPI Objective Physical Exam: BP (!) 152/92 (BP Location: Left arm, BP Position: Sitting) Pulse 70 Temp 97.5 F (36.4 C) (Oral) Wt 108.2 kg (238 lb 9.6 oz) BMI 39.71 kg/m Smoking Status Never General/Constitutional: No acute distress. HEENT: Head: Normocephalic and atraumatic. Cardiac: Normal rate Pulmonary/Chest: Non-labored breathing Breast/lymphatics: Right breast and axillary incisions c,d,I without erythema or hematoma. Skin: Skin is warm and dry. Extremities: Normal range of motion in all four extremities. Neurological: Conscious, alert and oriented. No focal neurologic deficit. Psychiatric: Appropriate mood and affect for clinical situation. Imaging: None new Path: Pathologic Diagnosis A. [place] lymph node #1, right axilla, excision: 1 lymph node, negative for carcinoma by H&E and AE1/3 Histologic evidence of therapy effect is present Biopsy site changes B. [place] lymph node #2, right axilla, excision: 1 lymph node, negative for carcinoma by H&E and AE1/3 Negative for histologic evidence of therapy effect C. Right axillary Victorina piccoloist for gross only: Victorina piccoloist, gross examination only D. Right breast, Victorina piccoloist localized lumpectomy: Negative for residual invasive or in situ carcinoma, see comment Therapy effect status post neoadjuvant chemotherapy Biopsy site changes Surgical resection margins are negative Comment: A radiograph of the breast specimen was performed to assist in the sectioning of the specimen and the image was reviewed and correlated with the histological findings. The tumor bed grossly measures 2.6 x 1.8 cm. E. New superior margin, re-excision: Breast tissue and surgical margin, negative for carcinoma F. New medial margin, re-excision: Breast tissue and surgical margin, negative for carcinoma G. New anterior margin, re-excision: Breast tissue and surgical margin, negative for carcinoma H. New posterior margin, re-excision: Breast tissue and surgical margin, negative for carcinoma Electronically signed by Chris Apple MD Assessment & Plan Assessment & Plan: Milad Lane is a 59 y.o. female with right breast ER/VA positive, HER2 negative with positive axillary lymph node, [place]. Cancer Staging Malignant neoplasm of overlapping sites of right breast in female, estrogen receptor positive Staging form: Breast, AJCC 8th Edition - Clinical stage from 02/05/2024: Stage IIB (cT2, cN1(f), cM0, G3, ER+, VA+, HER2-) - Pathologic stage from 08/09/2024: ypT0, pN0(sn), cM0, GX, ER+, VA+, HER2- - I have reviewed with the patient her pathology results which show no evidence of residual disease. - We have reviewed the continued recommendation for RT in this setting. She will also remain a candidate for endocrine therapy and possible CDK 4/6 inhibitor. - She is already scheduled for follow up with Rad Onc. We will reach out to Med Onc to get her set up for follow up for adjuvant systemic therapy. - We will plan for follow up in December with bilateral mammogram for continued surveillance. Leonila An MD, FACS Surgical Oncology [facility]* Nursing Notes - Sammie Baldwin RN - 08/09/2024 2:08 PM EST 1400- Awaiting Automotive Software Engineer to meat pickler patient's medications and bring them to [facility]. Patient and family aware. 1408 : Patient arrived to [facility] ASU from [facility] PACU via gurney. Vital signs taken and stable. Patient given drink and snacks. Family called to bedside. Patient assessed. 1430 : Patient and family member given copy of AVS, all prescriptions, and supplies. Patient and family member present for discharge teaching. All questions answered at this time. 1444- Still awaiting patient's medications. 1530 : IV removed per policy. 1535 : Patient meets ASU discharge criteria and discharged per MD order to home. Patient taken by wheelchair to awaiting car. All belongings gathered with patient. Family/friend to drive patient homeand care for patient 24 hours post-op. [facility] Miscellaneous Notes* Nursing Notes - Sammie Baldwin RN - 08/09/2024 2:08 PM EST 1400- Awaiting Automotive Software Engineer to meat pickler patient's medications and bring them to [facility]. Patient and family aware. 1408 : Patient arrived to [facility] ASU from [facility] PACU via gurney. Vital signs taken and stable. Patient given drink and snacks. Family called to bedside. Patient assessed. 1430 : Patient and family member given copy of AVS, all prescriptions, and supplies. Patient and family member present for discharge teaching. All questions answered at this time. 1444- Still awaiting patient's medications. 1530 : IV removed per policy. 1535 : Patient meets ASU discharge criteria and discharged per MD order to home. Patient taken by wheelchair to awaiting car. All belongings gathered with patient. Family/friend to drive patient homeand care for patient 24 hours post-op. * Op Note - Leonila An MD - 08/09/2024 12:21 PM EST Name: Milad Lane ([id number]) Pre-Operative Diagnosis: Breast cancer metastasized to axillary lymph node, right [C50.911, C77.3] Malignant neoplasm of overlapping sites of right breast in female, estrogen receptor positive [C50.811, Z17.0] Post-Operative Diagnosis: Breast cancer metastasized to axillary lymph node, right [C50.911, C77.3] Malignant neoplasm of overlapping sites of right breast in female, estrogen receptor positive [C50.811, Z17.0] Procedure(s) Performed: Right victorina piccoloist localized lumpectomy and targeted axillary node dissection to include removal of victorina localized lymph node and sentinel lymph nodes with intra-operative injection of Technetium-99 and blue dye Attending Surgeon(s): Surgeons and Role: * Leonila An MD - Primary Anesthesiologist: Anesthesiologist: Igor Joy MD NUT THREADER: Bruno Fontana APRN-NUT THREADER Surgical Staff: Ski Patrol Director: Sophy Mauricio RN Relief Scrub: Juan Ramon George RN Scrub Person: Isamar Lopez RN Resident Assisting: Gabriela Davis MD Estimated Blood Loss: Minimal Specimens: See below ID Type Source Tests Collected by Time Destination 1 : Right axillary victorina piccoloist for gross only Permanent SURG PATH SURG PATH REQUEST Leonila An MD08/09/2024 1049 3 : Right victorina piccoloist localized lumpectomy, short stitch = superior, long stitch = lateral, ink per protoco 1 victorina piccoloist, 1 biopsy clip Fixation SURG PATH SURG PATH REQUEST Leonila An MD 08/09/2024 1138 4 : Right axillary sentinel lymph node #2, hot, not blue, count [id number] Frozen SURG PATH SURG PATH REQUEST Leonila An MD 08/09/2024 1121 5 : New superior margin, clips = new margin Fixation SURG PATH SURG PATH REQUEST Leonila An MD 08/09/2024 1149 6 : New medial margin, clips = new margin Fixation SURG PATH SURG PATH REQUEST Leonila An MD 08/09/2024 1151 7 : New anterior margin, clips = new margin Fixation SURG PATH SURG PATH REQUEST Leonila An MD 08/09/2024 1152 8 : New posterior margin, clips = new margin Fixation SURG PATH SURG PATH REQUEST Leonila An MD 08/09/2024 1152 9 : Right axillary sentinel lymph node #1, blue, count [id number], 2 clips in node Frozen SURG PATH SURG PATH REQUEST Leonila An MD 08/09/2024 1233 Drains: None Intra-Operative Findings: SLN x2, 1 SLN with biopsy clip x2, victorina piccoloist next to node and removed, both nodes negative on frozen Lumpectomy specimen with biopsy clip and victorina piccoloist in lumpectomy Indications: Milad Lane is a 59 y.o. female that was diagnosed with invasive ductal carcinoma, grade 3, ER positive, VA positive, Her2 negative of the right breast. Given the size of the lesion at presentation and good response to therapy lumpectomy and targeted axillary node dissection with possible axillary node dissection was recommended. The patient elected to proceed with this procedure after discussion of the risks and benefits. Informed written consent was obtained prior to the procedure. Narrative: Prior to the date of surgery the patient underwent localization of the right breast previous mass site with victorina piccoloist. The patient was taken to the operating room and placed in supine position beingsure to pad all bony prominences. Anesthesia was induced without complication. The periareolar skinof right breast was injected with Technetium-99 for intraoperative lymphatic mapping. The subareolar region of the right breast was then injected with isosulfan blue for further intraoperative lymphatic mapping. The patient was prepped and draped in normal sterile fashion. A time-out for patient safety was performed. Attention was first turned to the right sentinel lymph node biopsy. An incision just inferior to the hair-bearing region of the axilla was planned. This area was anesthetized with local. Incision wasmade with a 15 blade at the previously marked site. Dissection was carried down through the subcutaneous tissue and the clavipectoral fascia to the level of the deep axillary lymph nodes. Using the sa vi probe a the victorina piccoloist clip was identified. Dissection in the area of victorina clip was performed which revealed a blue lymph node. This was dissected out using a combination of electrocautery and clips. It was identified as right axillary sentinel node #1 and it had counts of 9033. Of note the two biopsy clips were in this node but the victorina piccoloist was not as it was directly next to the node. This was removed and sent as right axillary victorina piccoloist for gross only. We then explored the axilla with the nodeseeker. On placing the nodeseeker into the axilla there were still elevated counts. Further dissection in the area of maximal intensity revealed another lymph node. This was dissected out usinga combination of electrocautery and clips. It was identified as right axillary sentinel node #2 andit [place] [id number]. On returning the nodeseeker to the axilla there were no further counts within 10% of the hottest node. Additionally no further blue lymph nodes were identified. No palpably abnormal lymph nodes were identified. As such this portion of the procedure was terminated. Using the victorina piccoloist probe the victorina piccoloist clip was identified in the right breast consistent with imaging. A periareolar incision was planned in order to conceal the incision. This area was anesthetized with local. Incision was made at the previously marked site with a 15 blade. Skin flaps were raised until we were directly over the victorina piccoloist. A stitch was then placed into the specimen to be used for retraction. Circumferential dissection was performed around the victorina piccoloist being sure to leavean adequate margin around the victorina. Once it was clear that we were deep to the victorina the specimen was delivered through the incision and transected at its most posterior attachments using electrocautery. The specimen was marked with a short stitch superior and long stitch lateral. A specimen radiograph was performed which showed the victorina piccoloist and biopsy clip in the specimen. The victorina piccoloist and biopsy clip appeared to be close the superior and medial margin and possible residual mass seemed close to anterior and posterior margin. As such a new margin at these 4 sites were taken. The lumpectomycavity was then irrigated with normal saline and hemostasis was achieved. Clips were placed to markthe cavity with one clip superior, one inferior, one lateral, one medial and one posterior. At this point the frozen on the nodes had returned as negative and as such we did not proceed with axillary node dissection. The incision sites were irrigated with normal saline and hemostasis was achieved. The clavipectoralfascia was approximated with interrupted sutures of 3-0 Vicryl. The breast tissue was approximated with 3-0 vicryl to decrease the size of the lumpectomy cavity and improve cosmesis. The lumpectomy incision and axillary incision were then closed in layers using interrupted deep dermal sutures of 3-0 Vicryl and a running subcuticular of 4-0 Monocryl. Dermabond was applied as a dressing. The patient tolerated the procedure well without complication. All counts were correct at the end of the case. Leonila An MD Surgical Oncology August 09, 2024 12:39 PM * Brief Op Note - Leonila An MD - 08/09/2024 12:17 PM EST Milad Ariana ([id number]) PRE OPERATIVE DIAGNOSIS Breast cancer metastasized to axillary lymph node, right [C50.911, C77.3] Malignant neoplasm of overlapping sites of right breast in female, estrogen receptor positive [C50.811, Z17.0] POST OPERATIVE DIAGNOSIS Breast cancer metastasized to axillary lymph node, right [C50.911, C77.3] Malignant neoplasm of overlapping sites of right breast in female, estrogen receptor positive [C50.811, Z17.0] PROCEDURE PERFORMED Procedure(s) (LRB): MASTECTOMY PARTIAL (LUMPECTOMY) (Right) BX LYMPH NODE AXILLARY DEEP (Right) INJECTION RADIOACTIVE TRACER FOR SENTINEL NODE IDENTIFICATION (Right) IDENTIFICATION SENTINEL NODE INTRAOPERATIVE ADD-ON PX (Right) PRIMARY CLOSURE Yes INTRAOPERATIVE FINDINGS SLN x2 , 1 SLN with biopsy clip x2, victorina piccoloist next to node and removed Lumpectomy specimen with biopsy clip and victorina piccoloist in lumpectomy SURGEON Surgeons and Role: * Leonila An MD - Primary ANESTHESIOLOGIST Anesthesiologist: Igor Joy MD NUT THREADER: Bruno Fontana APRN-NUT THREADER SURGICAL STAFF Ski Patrol Director: Sophy Mauricio RN Relief Scrub: Juan Ramon George RN Scrub Person: Isamar Lopez RN Resident Assisting: Gabriela Davis MD COMPLICATIONS None ESTIMATED BLOOD LOSS Minimal SPECIMENS See below ID Type Source Tests Collected by Time Destination 1 : Right axillary victorina piccoloist for gross only Permanent SURG PATH SURG PATH REQUEST Leonila An MD08/09/2024 1049 2 : Right axillary sentinel lymph node #1, 2 clips in node Frozen SURG PATH SURG PATH REQUEST Leonila An MD 08/09/2024 1043 3 : Right victorina piccoloist localized lumpectomy, short stitch = superior, long stitch = lateral, ink per protoco 1 victorina piccoloist, 1 biopsy clip Fixation SURG PATH SURG PATH REQUEST Leonila An MD 08/09/2024 1138 4 : Right axillary sentinel lymph node #2, hot, not blue, count [id number] Frozen SURG PATH SURG PATH REQUEST Leonila An MD 08/09/2024 1121 5 : New superior margin, clips = new margin Fixation SURG PATH SURG PATH REQUEST Leonila An MD 08/09/2024 1149 6 : New medial margin, clips = new margin Fixation SURG PATH SURG PATH REQUEST Leonila An MD 08/09/2024 1151 7 : New anterior margin, clips = new margin Fixation SURG PATH SURG PATH REQUEST Leonila An MD 08/09/2024 1152 8 : New posterior margin, clips = new margin Fixation SURG PATH SURG PATH REQUEST Leonila An MD 08/09/2024 1152 [place] Node Biopsy for Breast Cancer - Right Operation performed with curative intent. Yes Tracer(s) used to identify sentinel nodes in the upfront surgery (non- neoadjuvant) setting (select all that apply). N/A Tracer(s) used to identify sentinel nodes in the neoadjuvant setting (select all that apply). Dye and Radioactive tracer All nodes (colored or non-colored) present at the end of a dye-filled lymphatic channel were removed. Yes All significantly radioactive nodes were removed. Yes All palpably suspicious nodes were removed. N/A Biopsy-proven positive nodes marked with clips prior to chemotherapy were identified and removed. Yes Leonila An MD August 09, 2024 12:17 PM * Nursing Notes - Isamar Nye RN - 08/09/2024 9:15 AM EST Patient has hx of chemo with last dose on 07/11/2024. Denies radiation. Patient denies metal or foreign objects in body. Patient denies hx of seizure or stroke. [facility] Discharge instructions* Discharge Instructions* Yuly Solorzano PA-C - 08/09/2024 1:25 PM EST Images from the original note were not included. Your provider is Dr. An Office Number: [phone] During office hours, Monday through Monday, 8:00 AM to 4:30 PM, call the office if you have any questions or concerns. After hours, weekends and holidays call the office number and you will be transferred to the After Hours Nurse Line. Call 911 for Emergencies. If you are unable to attend appointments that have been arranged for you, it is your responsibilityto call to reschedule at least 48 hours prior to the appointment date. Your After Visit Summary (AVS) has provided you with instructions for your discharge. There are also instructions in the breast surgery book given to you preoperatively. This book is found at the QR code below. It is your responsibility to ask questions if you have any. Please contact your medical care team at the numbers listed if you should have any additional questions. WHEN TO CALL THE DOCTOR? Bleeding that will not stop with pressure applied to the site Increase in pain in or around wound Change in the amount, color, or odor of drainage from your wound Redness, swelling or increased warmth around your wound Temperature greater than 100.4? F Incision separates/opens up Increasing or unrelieved pain while taking maximum dose of prescribed pain medication Persistent nausea and vomiting Inability to take medication without vomiting Inability to keep 8 oz. of fluids every 2 hours down CALL 911 if you have: Tender, swollen or reddened areas anywhere in your leg. Numbness or tingling in your lower leg or calf, or at the top of your leg or groin Skin on your leg looks pale or blue or feels cold to touch Chest pain or have trouble breathing CARE WHEN YOU GET HOME The first 1-2 days at home Rest quietly at home Have another adult with you for the first 24 hours Set up a schedule to take your medications and do wound and drain care You may have sore throat, jaw discomfort or muscle aches from anesthesia for surgery Do not drink alcoholic beverages Do not sign legal paperwork or make important decisions After General Anesthesia If you had general, monitored, or regional anesthesia, rest for [address], drink alcoholic beverages, or make important decisions during this time. General anesthesia may cause a sore throat, jaw discomfort or muscle aches. These symptoms can last for one or two days. MEDICATIONS AT HOME Resume pre-surgery medications as directed by your doctor. Pain Medications at Home You will be prescribed medications to manage pain at home. Your provider may have asked you to keepa pain management log. If so, please fill it for two weeks or until your first post-operative appointment. If You Are Prescribed Acetaminophen and Ibuprofen - Alternate Taking These Medications: Do not take them at the same time. Your acetaminophen should be taken the interval prescribed ALTERNATING with doses of Ibuprofen at the interval prescribed. Ibuprofen is easier to take on a full stomach. Other pain medication (such as Oxycodone or Tramadol) are taken ONLY if the Acetaminophen and Ibuprofen are not controlling your pain. You should SCHEDULE taking Tylenol and Ibuprofen alternately every 4 hours around the clock for thefirst 3 to 5 days following surgery. Prescription pain medication can be used NEEDED for moderate to severe pain. Do not take them at the same time. Acetaminophen 975 mg by mouth should be taken every 8 hours alternating with doses of Ibuprofen 400 mg by mouth every 8 hours. Ibuprofen is easier to take on a full stomach. Here is an example of a schedule: 8:00 am: Take Ibuprofen 400 mg by mouth 12:00 pm: Take Acetaminophen 975 mg by mouth 4:00 pm: Take Ibuprofen 400 mg by mouth 8:00 pm: Take Acetaminophen 975 mg by mouth 12:00 am: Take Ibuprofen 400 mg by mouth (if you are unable to sleep or concerned you will wake up in pain) Notes: Do not take more than 3,000 mg of Acetaminophen in 24 hours. Opioid medications are taken ONLY if the Acetaminophen and Ibuprofen are not controlling your pain. A few days after surgery, when your pain is in better control, stop taking these medications at a scheduled time each day, instead, begin taking Ibuprofen and Acetaminophen only when you need it. Remember, do not take more than 3,000 mg of Acetaminophen in 24 hours. Opioid medications are taken ONLY if the Acetaminophen and Ibuprofen are not controlling your pain. Pain medication reminders: Do not drive or drink alcoholic beverages after taking opioid pain medication such as Oxycodone Take each dose of opioids or Ibuprofen with food or milk Keep medications out of reach of children and pets If you were given a nerve block to control pain and or a teal wristband, please note your block will wear off in 2-3 day and your pain may increase a bit after it wears off. Take the pain medicationsgiven to you by your provider to control pain. Prevent constipation Follow the instructions on the attached Constipation and Opioid (Pain Medication) Use Sheet Prior to discharge, you may be given prescriptions for stool softeners and laxatives that can be purchased over the counter at your local pharmacy. DIET Resume the diet you were on before surgery Eat three servings of protein a day and drink 12 (8 ounce) glasses of water a day to help your wound heal ACTIVITY AND BATHING Elevate the arm on the same side as your surgery on a pillow when sitting and at night for at leastone week after surgery You may walk short distances and around home. YOU MAY RESUME SHOWERING 48 hours after surgery. Have help nearby, avoid shower spray hit directly on incision (keep front side of body turned away from the shower spray) If your physician has asked allowed you to shower and wishes for you to keep your dressing on, applying press and seal plastic wrap over the wound may help keep it dry. You may use your arm on the same side as your surgery to eat, comb hair, and do light activities (such as folding laundry in your lap) unless instructed otherwise by your physician. You may resume sexual activity. Until your physician gives you permission to do so: Do not raise the arm on the same side as your surgery more than a 90 degree angle away from your body unless instructed otherwise by your physician Do not bend at the waist or have your head lower than your heart Do not resume exercise until approved by your physician. Avoid sudden movements such as bouncing, jumping jacks, etc. Do not lift more than 2 pounds. Do not push or pull forcefully. For example, do not vacuum, perform house cleaning, or push a lawnmower Your provider will discuss when you can begin to drive at your post-operative appointment visits. Your provider will usually allow you to start driving when drains are out, and you are not taking anysedating or opioid medications. You may shower when your surgeon feels you are ready. Depending on your surgeon's instructions takea daily sponge bath or shower, starting on the post- operative day that is specified. To follow activity restrictions, you may need someone to help you with bathing. You may not soak or submerge your incision or drain site in a pool, tub, or body of water CLOTHING If recommended by your surgeon, wear your sport or surgical bra at all times. Do not insert a soft drum filler in the bra until your physician gives you permission. Wear a loose shirt over the bra,with a button front if possible, until your physician removes your drains. Pin drains to the shirt to avoid tugging. When comfortable for you and approved by your provider, you may use a mastectomy bra with a soft insert prosthesis. If applicable, and you had a mastectomy without reconstruction, you will be given a prescription for a permanent prosthesis and prosthetic bra in several weeks after surgery and you are completely healed. When you receive this prescription make an appointment at [employer] or the shop of your choice to be fitted for a prosthesis and post mastectomy clothing such as bras, swimsuits, etc. You may also purchase items online, one source is: [email or web address] If your surgeon does not wish for you to wear a surgical bra, wear a loose shirt without a bra, with a button front if possible until your physician removes your drains and allows you to wear a bra or loose camisole. Pin drains to the shirt to avoid tugging. CARE FOR YOU WOUNDS/INCISIONS Your wound dressing should remain dry and remain in place until the time your provider asks you to remove it. Incision dressing and care If your surgical incision is closed with skin glue: It will remain in place for up to 2 to 3 weeks and it will wear off (peel off) naturally. Do not scratch, rub, or pick at the transparent film skin closure; if you do, the transparent film skin closure may become loose before your surgical incision site is fully healed. Keep your surgical incision site dry for 48 hours after surgery. When you are instructed to resume showering; keep front of body turned away from shower spray and allow water to stream gently over chest. Resources and Support Support Group for breast cancer survivors: There is a monthly support group for breast cancer survivors and their loved ones. It is virtual. To sign up, call or see https://cancer.os.e du/patient-support/gwipforkfu-ddn-sxanhwy Attending educational class with other cancer survivors and their caregivers can be very helpful after surgery. For more information about our free classes and support groups call or see https://cancer.os.edu/patient-support/oxxhuhusok-gho-hiiaevg Reputable websites National Cancer [place]: https://www.cancer.gov/ [employer]: https://ww5.komen.org/ Support organizations of interest to people with breast cancer Reach to Recovery: https://www.cancer.org/treatment/kspbexf-vyvveqas-zjc-services/tzeys-vk-yuweadnj .html Living beyond breast cancer: https://www.lbbc.org/ Young Survival Coalition: https://www.youngsurvival.org/ Tiger[employer]ily Foundation: https://www.tigerlilyfoundation.org/ Cancer Support Community: https://www.cancersupportcommunity.org/ If you need support talking to your children or grandchildren about your diagnosis, please refer to: This explanation by psychologist on how to tell your children or grandchildren: https://www.youBusiness Exchange.com/watch?v=7hvcbM7H1mU&feature=youtu.be This video for children to explain the cancer diagnosis: https://www.youMozyube.com/watch?v=5DTYSnvmecA&feature=youtu.be This website which coaches you through how to tell your children: http://www.Today Tix.zoomsquare/ documented in this [facility]02-07-2025 Surgery Postoperative evaluation and management note* Op Note - Leoinla An MD - 08/09/2024 12:21 PM EST Name: Milad Lane ([id number]) Pre-Operative Diagnosis: Breast cancer metastasized to axillary lymph node, right [C50.911, C77.3] Malignant neoplasm of overlapping sites of right breast in female, estrogen receptor positive [C50.811, Z17.0] Post-Operative Diagnosis: Breast cancer metastasized to axillary lymph node, right [C50.911, C77.3] Malignant neoplasm of overlapping sites of right breast in female, estrogen receptor positive [C50.811, Z17.0] Procedure(s) Performed: Right victorina piccoloist localized lumpectomy and targeted axillary node dissection to include removal of victorina localized lymph node and sentinel lymph nodes with intra-operative injection of Technetium-99 and blue dye Attending Surgeon(s): Surgeons and Role: * Leonila An MD - Primary Anesthesiologist: Anesthesiologist: Igor Joy MD NUT THREADER: Bruno Fontana APRN-NUT THREADER Surgical Staff: Ski Patrol Director: Sophy Mauricio RN Relief Scrub: Juan Ramon George RN Scrub Person: Isamar Lopez RN Resident Assisting: Gabriela Davis MD Estimated Blood Loss: Minimal Specimens: See below ID Type Source Tests Collected by Time Destination 1 : Right axillary victorina piccoloist for gross only Permanent SURG PATH SURG PATH REQUEST Leonila An MD08/09/2024 1049 3 : Right victorina piccoloist localized lumpectomy, short stitch = superior, long stitch = lateral, ink per protoco 1 victorina piccoloist, 1 biopsy clip Fixation SURG PATH SURG PATH REQUEST Leonila An MD 08/09/2024 1138 4 : Right axillary sentinel lymph node #2, hot, not blue, count [id number] Frozen SURG PATH SURG PATH REQUEST Leonila An MD 08/09/2024 1121 5 : New superior margin, clips = new margin Fixation SURG PATH SURG PATH REQUEST Leonila An MD 08/09/2024 1149 6 : New medial margin, clips = new margin Fixation SURG PATH SURG PATH REQUEST Leonila An MD 08/09/2024 1151 7 : New anterior margin, clips = new margin Fixation SURG PATH SURG PATH REQUEST Leonila nA MD 08/09/2024 1152 8 : New posterior margin, clips = new margin Fixation SURG PATH SURG PATH REQUEST Leonila An MD 08/09/2024 1152 9 : Right axillary sentinel lymph node #1, blue, count 9033, 2 clips in node Frozen SURG PATH SURG PATH REQUEST Leonila An MD 08/09/2024 1233 Drains: None Intra-Operative Findings: SLN x2, 1 SLN with biopsy clip x2, victorina piccoloist next to node and removed, both nodes negative on frozen Lumpectomy specimen with biopsy clip and victorina piccoloist in lumpectomy Indications: Milad Lane is a 59 y.o. female that was diagnosed with invasive ductal carcinoma, grade 3, ER positive, VA positive, Her2 negative of the right breast. Given the size of the lesion at presentation and good response to therapy lumpectomy and targeted axillary node dissection with possible axillary node dissection was recommended. The patient elected to proceed with this procedure after discussion of the risks and benefits. Informed written consent was obtained prior to the procedure. Narrative: Prior to the date of surgery the patient underwent localization of the right breast previous mass site with victorina piccoloist. The patient was taken to the operating room and placed in supine position beingsure to pad all bony prominences. Anesthesia was induced without complication. The periareolar skinof right breast was injected with Technetium-99 for intraoperative lymphatic mapping. The subareolar region of the right breast was then injected with isosulfan blue for further intraoperative lymphatic mapping. The patient was prepped and draped in normal sterile fashion. A time-out for patient safety was performed. Attention was first turned to the right sentinel lymph node biopsy. An incision just inferior to the hair-bearing region of the axilla was planned. This area was anesthetized with local. Incision wasmade with a 15 blade at the previously marked site. Dissection was carried down through the subcutaneous tissue and the clavipectoral fascia to the level of the deep axillary lymph nodes. Using the sa vi probe a the victorina piccoloist clip was identified. Dissection in the area of victorina clip was performed which revealed a blue lymph node. This was dissected out using a combination of electrocautery and clips. It was identified as right axillary sentinel node #1 and it had counts of 9033. Of note the two biopsy clips were in this node but the victorina piccoloist was not as it was directly next to the node. This was removed and sent as right axillary victorina piccoloist for gross only. We then explored the axilla with the nodeseeker. On placing the nodeseeker into the axilla there were still elevated counts. Further dissection in the area of maximal intensity revealed another lymph node. This was dissected out usinga combination of electrocautery and clips. It was identified as right axillary sentinel node #2 andit [place] [address]. On returning the nodeseeker to the axilla there were no further counts within 10% of the hottest node. Additionally no further blue lymph nodes were identified. No palpably abnormal lymph nodes were identified. As such this portion of the procedure was terminated. Using the victorina piccoloist probe the victorina piccoloist clip was identified in the right breast consistent with imaging. A periareolar incision was planned in order to conceal the incision. This area was anesthetized with local. Incision was made at the previously marked site with a 15 blade. Skin flaps were raised until we were directly over the victorina piccoloist. A stitch was then placed into the specimen to be used for retraction. Circumferential dissection was performed around the victorina piccoloist being sure to leavean adequate margin around the victorina. Once it was clear that we were deep to the victorina the specimen was delivered through the incision and transected at its most posterior attachments using electrocautery. The specimen was marked with a short stitch superior and long stitch lateral. A specimen radiograph was performed which showed the victorina piccoloist and biopsy clip in the specimen. The victorina piccoloist and biopsy clip appeared to be close the superior and medial margin and possible residual mass seemed close to anterior and posterior margin. As such a new margin at these 4 sites were taken. The lumpectomycavity was then irrigated with normal saline and hemostasis was achieved. Clips were placed to markthe cavity with one clip superior, one inferior, one lateral, one medial and one posterior. At this point the frozen on the nodes had returned as negative and as such we did not proceed with axillary node dissection. The incision sites were irrigated with normal saline and hemostasis was achieved. The clavipectoralfascia was approximated with interrupted sutures of 3-0 Vicryl. The breast tissue was approximated with 3-0 vicryl to decrease the size of the lumpectomy cavity and improve cosmesis. The lumpectomy incision and axillary incision were then closed in layers using interrupted deep dermal sutures of 3-0 Vicryl and a running subcuticular of 4-0 Monocryl. Dermabond was applied as a dressing. The patient tolerated the procedure well without complication. All counts were correct at the end of the case. Leonila An MD Surgical Oncology August 09, 2024 12:[address] [facility] Work Phone: 1([phone]) 142-404202-07-2025 Surgery Postoperative evaluation and management note* Brief Op Note - Leonila An MD - 08/09/2024 12:[address] ([id number]) PRE OPERATIVE DIAGNOSIS Breast cancer metastasized to axillary lymph node, right [C50.911, C77.3] Malignant neoplasm of overlapping sites of right breast in female, estrogen receptor positive [C50.811, Z17.0] POST OPERATIVE DIAGNOSIS Breast cancer metastasized to axillary lymph node, right [C50.911, C77.3] Malignant neoplasm of overlapping sites of right breast in female, estrogen receptor positive [C50.811, Z17.0] PROCEDURE PERFORMED Procedure(s) (LRB): MASTECTOMY PARTIAL (LUMPECTOMY) (Right) BX LYMPH NODE AXILLARY DEEP (Right) INJECTION RADIOACTIVE TRACER FOR SENTINEL NODE IDENTIFICATION (Right) IDENTIFICATION SENTINEL NODE INTRAOPERATIVE ADD-ON PX (Right) PRIMARY CLOSURE Yes INTRAOPERATIVE FINDINGS SLN x2 , 1 SLN with biopsy clip x2, victorina piccoloist next to node and removed Lumpectomy specimen with biopsy clip and victorina piccoloist in lumpectomy SURGEON Surgeons and Role: * Leonila An MD - Primary ANESTHESIOLOGIST Anesthesiologist: Igor Joy MD NUT THREADER: Bruno Fontana APRN-NUT THREADER SURGICAL STAFF Ski Patrol Director: Sophy Mauricio RN Relief Scrub: Juan Ramon George RN Scrub Person: Isamar Lopez RN Resident Assisting: Gabriela Davis MD COMPLICATIONS None ESTIMATED BLOOD LOSS Minimal SPECIMENS See below ID Type Source Tests Collected by Time Destination 1 : Right axillary victorina piccoloist for gross only Permanent SURG PATH SURG PATH REQUEST Leonila An MD08/09/2024 1049 2 : Right axillary sentinel lymph node #1, 2 clips in node Frozen SURG PATH SURG PATH REQUEST Leonila An MD 08/09/2024 1043 3 : Right victorina piccoloist localized lumpectomy, short stitch = superior, long stitch = lateral, ink per protoco 1 victorina piccoloist, 1 biopsy clip Fixation SURG PATH SURG PATH REQUEST Leonila An MD 08/09/2024 1138 4 : Right axillary sentinel lymph node #2, hot, not blue, count [id number] Frozen SURG PATH SURG PATH REQUEST Leonila An MD 08/09/2024 1121 5 : New superior margin, clips = new margin Fixation SURG PATH SURG PATH REQUEST Leonila An MD 08/09/2024 1149 6 : New medial margin, clips = new margin Fixation SURG PATH SURG PATH REQUEST Leonila An MD 08/09/2024 1151 7 : New anterior margin, clips = new margin Fixation SURG PATH SURG PATH REQUEST Leonila An MD 08/09/2024 1152 8 : New posterior margin, clips = new margin Fixation SURG PATH SURG PATH REQUEST Leonila An MD 08/09/2024 1152 [place] Node Biopsy for Breast Cancer - Right Operation performed with curative intent. Yes Tracer(s) used to identify sentinel nodes in the upfront surgery (non- neoadjuvant) setting (select all that apply). N/A Tracer(s) used to identify sentinel nodes in the neoadjuvant setting (select all that apply). Dye and Radioactive tracer All nodes (colored or non-colored) present at the end of a dye-filled lymphatic channel were removed. Yes All significantly radioactive nodes were removed. Yes All palpably suspicious nodes were removed. N/A Biopsy-proven positive nodes marked with clips prior to chemotherapy were identified and removed. Yes Leonila An MD August 09, 2024 12:17 PM [facility]02-07-2025 History and physical note* Yuly Solorzano PA-C - 08/09/2024 9:28 AM ESTSummary: H&P Interval Note PERIOPERATIVE SURGICAL HISTORY AND PHYSICAL UPDATE Pre-op Diagnoses: Breast cancer metastasized to axillary lymph node, right [C50.911, C77.3] Malignant neoplasm of overlapping sites of right breast in female, estrogen receptor positive [C50.811, Z17.0] Procedure(s): MASTECTOMY PARTIAL (LUMPECTOMY) BX LYMPH NODE AXILLARY DEEP INJECTION RADIOACTIVE TRACER FOR SENTINEL NODE IDENTIFICATION IDENTIFICATION SENTINEL NODE INTRAOPERATIVE ADD-ON PX LYMPHADENECTOMY AXILLARY DEEP Surgeon(s): Surgeons and Role: * Leonila An MD - Primary History and Physical Update: Blood pressure 133/66, pulse 67, temperature 97.9 F (36.6 C), temperature source Oral, resp. rate 16, height 1.651 m (5' 5), weight 108.2 kg (238 lb 9.6 oz), SpO2 98%. I have reviewed Milad Lane's medical, surgical and other pertinent history, and I have updated the medication and allergy information in the computerized patient record. I have examined the patient, reviewed the previous H&P completed on date (07/15/2024) and thereare no changes. Pt has no new complaints today and denies F/C, CP/SOB, N/V/D or trips to urgent care/ED since last being seen. Today's surgical history and physical update was completed by Yuly Solorzano PA-C, 08/09/2024, 9:28 AM. [facility] Work Phone: [phone] History and physical note* Yuly Solorzano PA-C - 08/09/2024 9:28 AM ESTSummary: H&P Interval Note PERIOPERATIVE SURGICAL HISTORY AND PHYSICAL UPDATE Pre-op Diagnoses: Breast cancer metastasized to axillary lymph node, right [C50.911, C77.3] Malignant neoplasm of overlapping sites of right breast in female, estrogen receptor positive [C50.811, Z17.0] Procedure(s): MASTECTOMY PARTIAL (LUMPECTOMY) BX LYMPH NODE AXILLARY DEEP INJECTION RADIOACTIVE TRACER FOR SENTINEL NODE IDENTIFICATION IDENTIFICATION SENTINEL NODE INTRAOPERATIVE ADD-ON PX LYMPHADENECTOMY AXILLARY DEEP Surgeon(s): Surgeons and Role: * Leonila An MD - Primary History and Physical Update: Blood pressure 133/66, pulse 67, temperature 97.9 F (36.6 C), temperature source Oral, resp. rate 16, height 1.651 m (5' 5), weight 108.2 kg (238 lb 9.6 oz), SpO2 98%. I have reviewed Milad Lane's medical, surgical and other pertinent history, and I have updated the medication and allergy information in the computerized patient record. I have examined the patient, reviewed the previous H&P completed on date (07/15/2024) and thereare no changes. Pt has no new complaints today and denies F/C, CP/SOB, N/V/D or trips to urgent care/ED since last being seen. Today's surgical history and physical update was completed by Yuly Solorzano PA-C, 08/09/2024, 9:28 AM. [facility] Nurse Note* Nursing Notes - Isamar Nye RN - 08/09/2024 9:15 AM EST Patient has hx of chemo with last dose on 07/11/2024. Denies radiation. Patient denies metal or foreign objects in body. Patient denies hx of seizure or stroke. [facility]02-06-2025 NoteEXAM: US GUIDED NEEDLE LOC BREAST RIGHT, 08/08/2024 15:47 PM PRE-PROCEDURE DIAGNOSIS: Metastatic carcinoma to the right axillary lymph nodes POST-PROCEDURE DIAGNOSIS: Metastatic carcinoma to right axillary lymph nodes PERFORMING PHYSICIAN: Elle Fox M.D. TAPPER HELPER: Dr. Valerio COMPARISON: Bilateral breast MRI July 11, 2024 and right axillary ultrasound February 05, 2024 FINDINGS: Consent: Following a thorough discussion of the risks, benefits and alternatives of the procedure written informed consent was obtained. Time out was performed. Position: The patient was placed in a supine position on the US table and a preliminary US scan was obtained. The abnormality was again identified in the right axilla. Preparation: The patient's skin was cleansed, and the skin and subcutaneous tissues anesthetized with 1% lidocaine solution. Procedure: Utilizing VICTORINA marker deployment device, the previously biopsied right axillary lymph node was targeted under ultrasound guidance. The needle was removed. The estimated blood loss is minimal. The patient tolerated the procedure well without evidence of immediate complications. Post procedural MLO image demonstrates appropriate placement of the VICTORINA marker overlapping the dragonfly biopsy clip, ribbon-shaped biopsy clip and right axillary lymph node. [id number] History of Present illness Narrative* Ladan Funes - 08/08/2024 3:00 PM EST Completed a RT axilla ULTRASOUND Victorina Body Mechanic localization using a 16g x 7.5 cm needle. Patient tolerated procedure well. Bandage and ice pack were applied and patient was released in good condition. Patient scheduled for surgery (date) 08/09/2024 Patient aware yes Specimen scheduled by: POST IMPLANT SURVEY: Post-implant audible signal dected no Total number of VICTORINA PRODUCT PROMOTER SALES PERSON REFLECTOR(S) placed 1 Compression held from 1543 to 1548 post confirmation of VICTORINA PRODUCT PROMOTER SALES PERSON REFLECTOR PLACEMENT. Victorina Body Mechanic Lot number- [id number] [facility] Procedure note* Elle Fox MD - 08/08/2024 3:00 PM ESTAssociated Order(s): GENERAL PROCEDURE History and Physical Update: The H&P completed on 02/09/2024 and 07/15/2024 was reviewed and patient was assessed. No changes were noted. Elle Fox MD, 08/08/2024, 3:[address] [facility] Work Phone: 1(870) 368-153402-06-2025 Procedure note* Elle Fox MD - 08/08/2024 3:00 PM ESTAssociated Order(s): GENERAL PROCEDURE History and Physical Update: The H&P completed on 02/09/2024 and 07/15/2024 was reviewed and patient was assessed. No changes were noted. Elle Fox MD, 08/08/2024, 3:21 PM. [facility] this [facility] History of Present illness Narrative* Noreen Raphael - 08/08/2024 2:50 PM EST Completed a RT breast X-RAY Victorina Body Mechanic localization using a 16g x 7.5 cm needle. Patient tolerated procedure well. Bandage and ice pack were applied and patient was released in good condition. Patient scheduled for surgery (date) 08/09/2024 Patient aware yes Specimen scheduled by: [facility] POST IMPLANT SURVEY: Post-implant audible signal dected yes Total number of VICTORINA PRODUCT PROMOTER SALES PERSON REFLECTOR(S) placed 1 Compression held from 2:44 pm to 2:49 pm post confirmation of VICTORINA PRODUCT PROMOTER SALES PERSON REFLECTOR PLACEMENT. Victorina Body Mechanic Lot number- [id number] documented [facility] Procedure note* Kristine Gil DO - 08/08/2024 2:00 PM ESTAssociated Order(s): GENERAL PROCEDURE History and Physical Update: The H&P completed on 07/15/2024 was reviewed and patient was assessed. No changes were noted. Kristine Gil DO, 08/08/2024, 2:[address] [facility] Work Phone: [phone]) [phone] Procedure note* Kristine Gil DO - 08/08/2024 2:00 PM ESTAssociated Order(s): GENERAL PROCEDURE History and Physical Update: The H&P completed on 07/15/2024 was reviewed and patient was assessed. No changes were noted. Kristine Gil DO, 08/08/2024, 2:12 PM. documented in this [facility]Mer[facility] History of Present illness Narrative* Theresa LUDIVINA Marroquin-SERVICE ADMINISTRATOR - 07/15/2024 10:15 AM EST Subjective Clinical Care Team: -Referring Provider for today's consult: Emperatriz Jordan MD -Primary Care Provider: Emperatriz Jordan History of Present Illness: Chief Complaint Patient presents with Pre-op Exam Pr reports ongoing edema and fluid retention. Pt completed chemo last week. Milad Lane is a 59 y.o. female who presents to the [facility] for surgical planning. She has completed her chemotherapy and has had a good response to therapy. She notes swelling and neuropathy related to the chemotherapy. Since her last appointment she has elected to proceed with lumpectomy and targeted axillary dissection and possible completion axillary node dissection. Review of presentation and treatment: 01/12/24 bilateral screening mammogram showed new right breast mass in the central medial anterior aspect of the right breast measuring 1.6 x 1.2 cm. Enlarged axillary lymph nodes were noted. Right axilla showed 2.4 x 1.5 cm irregular appearing lymph node in the right axilla with increased blood flow (BIRADS-5). Biopsy was recommended. 01/19/24 right breast biopsy showed invasive ductal carcinoma, grade 3, ER positive (>95%, strongintensity), VA positive (32%, moderate intensity), HER2 1- 2+ (equivocal) and FISH not amplified. Lymph node positive for metastatic carcinoma consistent with breast primary. 02/01/24 [facility] review of outside films showed suspicious right breast masses having undergonebiopsy at right breast 3:00 and in right axilla. It is not clear if clips were placed or type of clips placed. There is suggestion of possible associated calcifications extending outside the mass butcould represent artifact. This could be reassessed on diagnostic mammogram and repeat US could be performed to get better assessment of true size. 02/05/2024 presents to establish in Surg/Onc breast clinic with Dr. An. She reports right breast lump about six weeks prior to her screening mammogram but thought this may be a benign finding as hermother had a similar symptom in her past. She does report some pain and itching. She has noted somenumbness and tingling in the left arm for about 1 month. She is accompanied by her and daughter to today's visit. 02/13/2024: staging scans (CT C/A/P, nuc bone scan) No evidence of metastatic osseous/pulmonary, or in abdomen/pelvis. There is a 4.7 cm liver lesion - likely hemangioma 02/13/2024: genetic testing - negative 02/21/2024: breast MRI: 3.3x3x2.4 cm cancer in right breast, enlarged right axillary and internal mammary nodes 02/21/24: Dragonfly clip placed in previously biopsied right axillary node 02/23/2024: start neoadjuvant chemotherapy ddAC 02/25/2024: MRI abdomen - benign hepatic hemangioma, no evidence of metastatic disease in the abdomen 02/23/24 - 07/2024 - Completed ddAC and T 07/11/2023: Breast MRI: Partial treatment response with significant decrease in size and conspicuity of biopsy-proven invasive ductal carcinoma of the right breast. Evidence of response to therapy withdecrease in size of the previously seen axillary lymph nodes. Evidence of response to therapy with interval decrease in size of the previously seen abnormal internal mammary lymph node. There is alsosignificant response to therapy of the enhancing soft tissue lesion at the costochondral junction without dominant residual suspicious mass today. Previously noted prevascular lymphadenopathy no longer seen today, may reflect response to therapy. Issue with fluid retention and edema, foot neoropathy and BLE weakness. Echo WNL She has a family history of breast cancer in her maternal aunt at age 72 and mother had pancreatic cancer at age 60 with recurrence at 71. He mother also had many skin cancers removed from her face (unknown origin). Her brother had bladder cancer at 72. I have reviewed [facility] medical, surgical and other pertinent history in detail, and have updated where appropriate in the computerized patient record. Oncologic History: Cancer Staging Malignant neoplasm of overlapping sites of right breast in female, estrogen receptor positive Staging form: Breast, AJCC 8th Edition - Clinical stage from 02/05/2024: Stage IIB (cT2, cN1(f), cM0, G3, ER+, VA+, HER2-) Oncology History Malignant neoplasm of overlapping sites of right breast in female, estrogen receptor positive 01/19/2024 Initial Diagnosis Malignant neoplasm of overlapping sites of right breast in female, grade 3, estrogen/progesterone receptor positive, HER2 1-2 + (equivocal), FISH pending with positive axillary lymph node. 02/05/2024 - Cancer Staged Staging form: Breast, AJCC 8th Edition - Clinical stage from 02/05/2024: Stage IIB (cT2, cN1(f), cM0, G3, ER+, VA+, HER2-) Medical/Surgical History: Past Medical History: Diagnosis Date Anxiety Essential hypertension, benign Goiter Malignant neoplasm of overlapping sites of right breast in female, estrogen receptor positive 01/19/2024 IDC, ER+/VA+/HER2 equivocal Uterine fibroid Past Surgical History: Procedure Laterality Date INSERTION CVC TUNNELED W/ PORT PUMP Left 02/16/2024 Laterality: Left; Surgeon: Leonila An MD; [facility] PERIOP GUIDANCE U/S VASCULAR ACCESS PROCEDURES ADD-ON PX Left 02/16/2024 Laterality: Left; Surgeon: Leonila An MD; [facility] PERIOP GUIDANCE FLUOROSCOPIC PLACEMENT REPLACEMENT REMOVAL OF CVAD ADD-ON PX Left 02/16/2024 Laterality: Left; Surgeon: Leonila An MD; [facility] PERIOP CORE BIOPSY OF THE BREAST Right 01/19/2024 Malignant neoplasm of overlapping sites of right breast in female, estrogen receptor positive SECTION 1988 SECTION 1987 SECTION 1983 CHOLECYSTECTOMY 1983 HYSTERECTOMY OOPHORECTOMY LAVERN AND BSO 40's Family/Social History: Family History Problem Relation Age of Onset Cancer- Other Mother 60 pancreatic- 60, recurrance at 71. Multiple skin cancers pt thinks melanoma Cancer- Other Brother bladder passed at age 72 Cancer- Other Paternal Grandmother unknown type passed at age 39 Breast Cancer Maternal Aunt 76 recently diagnosed Cancer Maternal Uncle unknown type Cancer Maternal Uncle unknown type Breast Cancer Maternal Cousin 60 - 69 Leukemia Maternal Cousin 60 - 69 Ovarian Cancer Neg Hx Uterine Cancer Neg Hx Social History Socioeconomic History Marital status: Tobacco Use Smoking status: Never Smokeless tobacco: Never Vaping Use Vaping status: Never Used Substance and Sexual Activity Alcohol use: Yes Alcohol/week: 1.0 - 3.0 standard drink of alcohol Types: 1 - 3 Standard drinks or equivalent per week Drug use: Never Sexual activity: Yes Partners: Male control/protection: Hysterectomy 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 Patient denies hormonal therapy at this time. BREAST (GENERAL): Patient admits to self-breast exams and does them several times per month. Date of patient's first mammogram: Age 39 Date of most recent mammogram: 01/12/2024 Bra/Cup Size: 38DD BREAST(HISTORICAL BIOPSY/THERAPY/TREATMENT) Patient admits to previous breast biopsy(s). Patient admits to being told they personally have breast cancer or a breast malignancy. Patient denies chemotherapy, hormone therapy or radiation therapy during the last month. Social Determinants of Health Financial Resource Strain: Low Risk (07/15/2024) Overall Financial Resource Strain (CARDIA) Difficulty of Paying Living Expenses: Not hard at all Food Insecurity: No Food Insecurity (07/15/2024) Hunger Vital Sign Worried About Running Out of Food in the Last Year: Never true Ran Out of Food in the Last Year: Never true Transportation Needs: No Transportation Needs (07/15/2024) PRAPARE - Transportation Lack of Transportation (Medical): No Lack of Transportation (Non-Medical): No Medications/Allergies/Immunizations: Her current medication(s) include has a current medication list which includes the following prescription(s): Acetaminophen 325 MG tablet, B Complex Vitamins (VITAMIN B COMPLEX PO), ergocalciferol 1.25 MG (96413 UT) capsule, Gabapentin (Neurontin) 300 MG capsule, hydroCHLOROthiazide 25 MG tablet, Ibuprofen 400 MG tablet, levothyroxine 50 MCG tablet, magnesium oxide 400 MG tablet, [place]-3 Fatty Acids (OMEGA 3 PO), vitamin E 400 units capsule, Lidocaine-prilocaine 2.5- 2.5 % cream, Prochlorperazine 10 MG tablet, and Zolpidem (Ambien) 5 MG tablet. Allergies: Metronidazole and Tegaderm ag mesh [silver], Immunizations: Immunization History Administered Date(s) Administered [id number] COVID-19 monovalent vaccine, mRNA, Moderna, 50 mcg/0.25 mL booster 07/21/2020, 08/18/2020 Influenza Vaccine 05/24/2024 Social History Socioeconomic History Marital status: Spouse name: Not on file Number of children: Not on file Years of education: Not on file Highest education level: Not on file Occupational History Not on file Tobacco Use Smoking status: Never Smokeless tobacco: Never Vaping Use Vaping status: Never Used Substance and Sexual Activity Alcohol use: Yes Alcohol/week: 1.0 - 3.0 standard drink of alcohol Types: 1 - 3 Standard drinks or equivalent per week Drug use: Never Sexual activity: Yes Partners: Male control/protection: Hysterectomy Other Topics Concern Not on file 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 Patient denies hormonal therapy at this time. BREAST (GENERAL): Patient admits to self-breast exams and does them several times per month. Date of patient's first mammogram: Age 39 Date of most recent mammogram: 01/12/2024 Bra/Cup Size: 38DD BREAST(HISTORICAL BIOPSY/THERAPY/TREATMENT) Patient admits to previous breast biopsy(s). Patient admits to being told they personally have breast cancer or a breast malignancy. Patient denies chemotherapy, hormone therapy or radiation therapy during the last month. Social Determinants of Health Financial Resource Strain: Low Risk (07/15/2024) Overall Financial Resource Strain (CARDIA) Difficulty of Paying Living Expenses: Not hard at all Food Insecurity: No Food Insecurity (07/15/2024) Hunger Vital Sign Worried About Running Out of Food in the Last Year: Never true Ran Out of Food in the Last Year: Never true Transportation Needs: No Transportation Needs (07/15/2024) PRAPARE - Transportation Lack of Transportation (Medical): No Lack of Transportation (Non-Medical): No Physical Activity: Not on file Stress: Not on file Social Connections: Not on file Intimate Partner Violence: Not on file Housing Stability: Not on file Review of Systems: Review of Systems Constitutional: Positive for activity change (due to chemo) and fatigue (ongoing with chemo). Negative for appetite change, chills and fever. 30lbs weight gain since chemo HENT: Positive for nosebleeds (with Taxol), postnasal drip and tinnitus (occasional d/t chemo). Eyes: Negative. Respiratory: Positive for shortness of breath (HENDRIX). Negative for cough, choking, chest tightness and wheezing. Cardiovascular: Positive for palpitations (occasional, 1x last week heart flatter, hx of palpitations) and leg swelling. Negative for chest pain. Gastrointestinal: Negative. Endocrine: Negative. Genitourinary: Negative. Musculoskeletal: Negative. Arthritis, From chemo - back & shoulder pain Allergic/Immunologic: Negative. Neurological: Positive for weakness and numbness. LE neuropathy Hematological: Negative. Psychiatric/Behavioral: Negative. Objective Physical Exam: BP 164/79 (BP Location: Right arm, BP Position: Sitting) Pulse 83 Temp 97.5 F (36.4 C) (Oral) Wt 111.8 kg (246 lb 6.4 oz) BMI 41.00 kg/m Smoking Status Never General/Constitutional: No acute distress. HEENT: Head: Normocephalic and atraumatic. Cardiac: Normal rate Pulmonary/Chest: Non-labored breathing Breast/lymphatics: Breasts examined in the supine and seated position. There are no palpable massesor concerning skin changes bilaterally. There is no palpable cervical, supraclavicular or axillary lymphadenopathy bilaterally. Skin: Skin is warm and dry. Extremities: Normal range of motion in all four extremities. Neurological: Conscious, alert and oriented. No focal neurologic deficit. Psychiatric: Appropriate mood and affect for clinical situation. Imaging: EXAM: MRI BREAST BILATERAL WITH AND WITHOUT CONTRAST, 07/11/2024 13:56 PM CLINICAL INDICATIONS AND HISTORY: end of neoadjuvant chemo, please scan to evaulate therapy response C50.911:Breast cancer metastasized to axillary lymph node, right C77.3:Breast cancer metastasized to axillary lymph node, right Patient with biopsy-proven invasive ductal carcinoma within the right breast with biopsy-proven right axillary lymph node metastatic disease presented for breast MRI following neoadjuvant chemotherapy. COMPARISON: MRI BREAST BILATERAL WITH AND WITHOUT CONTRAST February 21, 2024 TECHNIQUE: Axial BLADE (STIR), axial noncontrast T1- weighted, axial dynamic pre- and postcontrast fat-suppressed T1-weighted, delayed postcontrast high-resolution sagittal fat-suppressed T1-weighted images were obtained. Serial subtraction images were generated during post-processing. The images were analyzed on the [employer] CAD software package on an independent workstation. FINDINGS: Amount of fibroglandular tissue: scattered fibroglandular tissue. Background parenchymal enhancement: minimal symmetric. Right breast: Significant decrease in size and conspicuity of prior irregular mass with spiculated margin with small residual delayed enhancing lesion measuring 1.0 AP x 0.4 TR x 0.7 CC cm (series 1023, image 87 and series 17, image 211), previously 3.3 x 3.0 x 2.4 cm. No other interval suspicious architectural distortion or mass lesion. Susceptibility artifact corresponding to biopsy clip in the right breast (series 2 image 80) in appropriate position just superior to the residual enhancement. Left breast: No evidence for architectural distortion or mass lesion within the left breast. Axilla: Decreased size and conspicuity of right axillary lymph nodes with index right level 1 axillary lymph node measuring 0.8 cm x 0.9 cm (series 1021, image 191), previously 1.7 x 1.6 cm with biopsy marker in place. This measurement may be overestimated due to susceptibility artifact from biopsy clip. Additional index right level 1 lymph node measures 1.2 cm x 0.6 cm (series 1021, image 191), previously 1.6 x 1.0 cm. No new or progressive lymphadenopathy. No left axillary lymphadenopathy. Internal Mammary Chain: Near resolution of prior right internal mammary lymphadenopathy with index lymph node measuring 0.3 cm (series 1023 image 23), previously 0.8 cm. Extramammary soft tissues: Left-sided chest port. Resolution of prior enhancing soft tissue lesion along the internal aspect of the right fourth and fifth ribs at the costochondral junction with no discrete measurable residual component. Resolution of prior prevascular lymphadenopathy with no residual measurable component Multinodular thyroid. IMPRESSION IMPRESSION: Partial treatment response with significant decrease in size and conspicuity of biopsy-proven invasive ductal carcinoma of the right breast. Evidence of response to therapy with decrease in size of the previously seen axillary lymph nodes. Evidence of response to therapy with interval decrease in size of the previously seen abnormal internal mammary lymph node. There is also significant response to therapy of the enhancing soft tissue lesion at the costochondral junction without dominant residual suspicious mass today. Previously noted prevascular lymphadenopathy no longer seen today, may reflect response to therapy. BI-RADS: 6: Known biopsy proven malignancy Recommendation: Surgical excision when clinically appropriate. Recommendation Laterality: Right Path: Pathologic Diagnosis Outside Slides: [id number] (01/24/2024) A. Right Axillary Lymph Node, Core Biopsy: Fragments of lymph node with metastatic carcinoma (3 mm deposit) Comment: The provided immunohistochemical stains for pankeratin and GATA3 ae positive, supporting breast primary. B. Right Breast, Core Biopsy: Invasive ductal carcinoma, grade 3 (score: tubule 3, nuclear 3, mitotic 3), 0.8 cm in greatest length Biomarker results using slides and reports from the outside institution: ER: Positive (95%, strong intensity) VA: Positive (30%, moderate intensity) HER2: Equivocal (score 2+) HER2 FISH: Negative (ratio: 1.0, HER2/cell: 2.1) per report Comment: The provided immunohistochemical stains for MOC31 and CK8 are positive while CK5/6, calponin and p40 are negative. E-cadherin shows membranous staining, supporting ductal phenotype. Assessment & Plan Assessment & Plan: Milad Lane is a 59 y.o. female with right breast ER/VA positive, HER2 negative with positive axillary lymph node, AWD. Cancer Staging Malignant neoplasm of overlapping sites of right breast in female, estrogen receptor positive Staging form: Breast, AJCC 8th Edition - Clinical stage from 02/05/2024: Stage IIB (cT2, cN1(f), cM0, G3, ER+, VA+, HER2-) - WE have reviewed her diagnosis and treatment course. We have reviewed her MRI results which show a very good response to therapy. - Given good response to therapy at this time she would be a candidate for lumpectomy with targetedaxillary node dissection (to include removal of Victorina localized node and and sentinel nodes) and possible axillary node dissection. Decision on whether to proceed with complete axillary node dissection would be dependent on frozen section evaluation of the nodes and would be completed if any residual cancer is seen in the sampled nodes. She reports that she would like to proceed with this approachas after much thought she is not wanting to undergo the extent of surgery that bilateral mastectomyand autologous reconstruction would require. - She understands that adjuvant RT will be recommended as a part of her treatment. - She has been seen by Plastics for consideration of pLVBP in addition to reconstruction. Her insurance has denied coverage of pLVBP. We discussed the pros and cons of this procedure and the out of pocket costs. After this discussion patient has elected to not proceed with this procedure. - The risks, benefits and alternatives to this procedure were discussed. We discussed the possibility of positive margins or change in lymph node results that could require a return to OR. We discussed that should she need the complete franci dissection she will spend the night in the hospital and discharge to home with a drain. If complete franci dissection is not needed she will discharge to homesame day with no drain in place. - We reviewed that she will need localization of the breast lesion and biopsied lymph node with Victorina piccoloist prior to surgery. - Pre-op evaluation and teaching completed today. Time spent: 30 minutes I spent the above mentioned duration reviewing this patient's case independently, discussing the case with colleagues, reviewing imaging and/or outside hospital reports, reviewing pathology reports, and development of documentation. Leonila An MD, FACS Surgical Oncology * Dalia Simpson RN - 07/15/2024 10:15 AM EST Patient offered a medical mechanical adjuster for sensitive exam. Patient declined mechanical adjuster. Surgical teaching provided to patient and family using surgery booklet, and pre- op instruction sheet. Provided education on pain management and pain expectations. CHG Foam soap provided. All questions answered at time of teaching. Patient encouraged to call office with any questions or concerns befo re and after surgery. Our office will contact patient to confirm arrival/surgery start time. Patient verbalized understanding. 30 minutes spent in face to face education with patient and family. [facility] Instructions* Patient Instructions* Theresa Marroquin [place] [employer]ONSTRATION AGENT-SERVICE ADMINISTRATOR - 07/15/2024 10:15 AM EST Images from the original note were not included. To prepare for your surgery, please read your preoperative teaching booklet given to you by your nurse. It is found at the following QR code and at this URL: [email or web address] PRIOR to your surgery: Please call the office at [phone] if any you have any cold, flu like or other symptoms of infection the week prior to your surgery. It may be necessary that you follow up with your primary care provider for further assessment. The presence of infection or illness may delay surgery. Please expect phone calls from [facility] before surgery to confirm your time to report to surgery and to review important things you need to do to prepare for surgery, listed on this handout.. Eat three meals a day and three servings of protein. Drink 64 ounces of water a day. See the instructions on diet in your preoperative teaching book. As your physical condition permits, please walk 15-20 minutes a day to build muscle tone and increase your lung health. You will be asked to walk with a nurse the night of your surgery. Please ask your nurse for help setting up [facility], if you have not already done so. In many cases, you will be asked to give information via [employer] before and after surgery, such as offering information about what medications you are currently taking. In some cases, your surgeon may ask you tosend a photo of your wound via [employer], which is a secure and confidential communication tool. If you are having an outpatient procedure, please make arrangements to have someone with you for 24hours after you are discharged. This is necessary to ensure your safety after surgery. You are not permitted to drive yourself home or take a ride service such as a cab, Uber or Lyft. Plan to have the person who will care for you at home after surgery come pick you up at the hospital on the day of discharge. Your caregiver needs to be available to receive teaching about your care at home. Please ask your caregiver to plan on being present at your bedside for teaching on the day of discharge. This teaching visit, which may take an hour, will include incision and drain care, pain management, nausea management and other important topics. Please also plan for someone to drive you home after surgery when you are discharged. You are not permitted to drive yourself home or take a ride service such as a cab, Uber or Lyft. Do NOT shave, or pluck hair from anywhere near the surgical site (breast, armpit) the day of or theweek before surgery. Shower or bathe from the neck down once daily with Chlorhexidine soap solution for five days prior to surgery and again the morning of surgery. Do not use lotion for 5 days before your surgery, it prevents the soap from decreasing germs on your skin that can cause an infection after surgery. DO NOT eat or chew ANYTHING for eight hours before the time you need to report for your surgery. This includes gum, antacid tablets and breath mints. You may eat and drink liquids until midnight the night before surgery. DO NOT smoke, chew, dip or vape tobacco or use any nicotine containing products (gum, patch) for 4 weeks before surgery and after midnight the night before your surgery. Use of tobacco may lead to complications or delaying healing after surgery. Let your provider know if this will not be possible, we can help. DO NOT smoke, vape or eat anything containing cannibis or cannibis compounds (THC, CBD) for 72 hours before surgery. DO NOT drink alcohol at all for 4 weeks before your surgery. Let your provider know if this will not be possible, we can help. You may brush your teeth (do not swallow the toothpaste) and rinse your mouth with water only aftermidnight but do so more than two hours before you report for surgery. On the day of surgery, DO NOT wear lotion, makeup, or perfume/cologne. Remove all fingernail khmer, artificial finger nails, watch, dentures, wedding band and jewelry inpierced areas. Your caregiver or loved one can bring your dentures to you after surgery. Medications Here is a list of your current medications we have on file with directions on whether to hold them before surgery: Current Outpatient Medications Medication Sig Acetaminophen 325 MG tablet Take 3 tablets by mouth every 8 hours. B Complex Vitamins (VITAMIN B COMPLEX PO) Take 1 tablet by mouth daily. ergocalciferol 1.25 MG (48972 UT) capsule Take 1 capsule by mouth Every other week. Gabapentin (Neurontin) 300 MG capsule Take 1 capsule by mouth 3 times daily. hydroCHLOROthiazide 25 MG tablet Take 1 tablet by mouth daily. Ibuprofen 400 MG tablet Take 1 tablet by mouth every 8 hours. levothyroxine 50 MCG tablet Take 1 tablet by mouth daily. magnesium oxide 400 MG tablet Take 1 tablet by mouth daily. [place]-3 Fatty Acids (OMEGA 3 PO) Take 650 mg by mouth daily. vitamin E 400 units capsule Take 2 capsules by mouth daily. Lidocaine-prilocaine 2.5-2.5 % cream Apply 1 Application topically As directed. Apply thick layer 30-60 minutes before needle stick, then cover area (Patient not taking: Reported on 07/15/2024) Only take gabapentin, levothyroxine on the morning of surgery with a sip of water. Do not take any of your other medications on the morning of surgery. If you use inhalers, use all your inhalers on the morning of surgery. If you are taking oral or injectable medication for diabetes or weight loss, we will give you additional instructions regarding these medications. Do NOT take Herbal medications, vitamins or supplements (including fish oil ([place]-3), garlic, Glucosamine - Chondroitin ,gingko, ginseng, Collagen, Vitamin E) 2 weeks before surgery. Do NOT take Aleve, Advil, Motrin, Ibuprofen, Advil, Naproxen, Diclofenac, Celebrex, Meloxicam, or Aspirin for 7 days before surgery. Please take Tylenol (Acetaminophen) for minor aches and pains unless instructed otherwise by your providers. If you are having surgery at [facility] ([facility]), please bring your home medications in their original bottles to take while at this facility. If having surgery at [facility] ([facility]) this is not necessary. KEEP. This is important because you may have to take one of your home medications while at [facility] if the nurse asks you to. What you need to bring to the hospital The best option is for you to ask your caregiver/loved one who will be with you to carry these items for you. They will be needed when you are admitted and on your day of discharge. Pack a button-down or zip front shirt and comfortable elastic waist pants to wear home from the hospital. You will not be permitted to raise your arms above your head and this clothing will be easiest for you to wear and still limit activity. We will issue you a bra at the hospital if your providerwishes for you to have one. 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 (There are some medications you might need to fill before discharge because they often not available at a neighborhood pharmacy). Money or credit card to cover co-pays for medications. A list of ALL MEDICATIONS you are currently taking including the dose and times that you take them.You will be turning this list over to your nurse. If you are having surgery at [facility] ([facility]), please bring your home medications in their original bottles to take while at this facility. If having surgery at [facility] ([facility]), this is not indicated. If you use crutches, a walker, a wheelchair, eyeglasses, contacts, hearing aids, CPAP, BiPAP or other devices, please bring them with you to the hospital. If you wear contacts, you will be asked to remove them during surgery so please bring a storage case for them. Please call [phone] at any time with any other questions or concerns. documented in this [facility] History of Present illness Narrative* Samara Bass - 07/11/2024 1:00 PM EST Second technologist present for imaging. No need for medical mechanical adjuster. documented in this [facility]01-09-2025 History of Present illness Narrative* Liz Rivers RN - 07/11/2024 9:[address] received Taxol today - completed [id number]. Patient to return for next appointmenton 1/13 (surg onc). Patient's next appointment has been verified by RN. Left accessed for MRI after chemotherapy. LAST CHEMO!!! documented in this [facility]Mer[facility]01-03-2025 History of Present illness Narrative* Evelyn Handy RN - 07/05/2024 2:30 PM EST Patient forgot her emla cream. We placed a cold pack on port site for 5 minutes before accessing port and patient did fine with no emla cream. Milad Lane received Taxol - completed [id number]. Patient to return for next treatment on 07/12/24. Patient's next appointment has been verified by RN. documented in this encounterMer[facility]12-27-2024 History of Present illness Narrative* Lucy Harrington RN - 06/28/2024 10:[address] seen in Medical Oncology clinic today. Nursing documentation of today's clinic visitreviewed. Milad Lane received Taxol today - completed [id number]. Pt tolerated well. Patient to return for next treatment on 07/05/2024. Patient's next appointment has been verified by RN. [facility]U [facility] History of Present illness Narrative* Shefali Galo RN - 06/28/2024 9:40 AM EST Shefali Galo RN served as medical mechanical adjuster for sensitive exam. Clinic to Infusion Handoff Report S - Patient coming from Exam to Infusion for treatment - Taxol B - Clinic Nurse reviewed the following: Allergies yes Medications yes Vital signs within treatment parameters yes Patient accessed yes A - Reviewed patient assessment and verified following: ECOG/Toxicity yes Ht/wt yes Labs within treatment parameters Yes If no, MD/PRADEEP notified. Ok to Treat order entered N/A If no, MD/PRADEEP notified. Treatment plans signed yes If no, MD/PRADEEP notified. R - Recommendations for plan of care: Describe any changes to plan of care: none Patient has AVS, completed check out, and discharged to infusion unit. For questions, please call: Shefali Galo RN * Lucio Joseph MD - 06/28/2024 9:40 AM EST History of Present Illness: Ms Lane presented to our clinic for breast cancer. She started to feel a mass in her right breast in January 2024. Bilateral diagnostic mammogram and right breast ultrasound showed 1.9x2.2x1.7 cm mass in right breast at 3 position along with 2.4x1.2x1.5 cm abnormal right axillary node. Biopsy of the mass showed IDC, grade 3, ER > 95%, VA 32%, HER2 equivocal, FISH negative, Ki-67 75%. Biopsy of the axillary node was positive for carcinoma. She has been referred to genetics. We discussed that itis reasonable to try to downstage the axilla with neoadjuvant chemo based on grade 3 and high Ki-67. We discussed possible side effects of ddACT and she agreed to proceed. We also briefly discussed adjuvant treatment with AI and abemaciclib. Breast MRI done on 02/21/24 showed 3.3x3x2.4 cm cancer in right breast, enlarged right axillary and internal mammary nodes. Bone scan done on 02/13/[address] Scan C/A/P done on 02/13/24 showed possible hepatic hemangiomas. MRI-abdomen done on 02/25/24 showed hepatic hemangiomas. TTE done on 02/15/24 showed EF 60- 65%. Port was placed on 02/16/24. She started ddAC on 02/23/24. Genetic testing was negative. Interval history: The patient presented for follow-up of her breast cancer and treatment. She will get dose 10 of Taxol this visit. TTE was done on 06/14/24 due to LL edema. It showed EF 55-60%. Edema may be due to Taxol. She has grade 2 peripheral neuropathy and she would like to try gabapentin. She will start gabapentin 300 mg tid. Review of Systems: 11 point ROS is positive for fatigue, peripheral neuropathy and hot flashes. Physical Exam: Vitals: BP 140/75 (BP Location: Right arm, BP Position: Sitting) Pulse 69 Temp 98 F (36.7 C) (Oral) Resp 18 Wt 111 kg (244 lb 11.2 oz) SpO2 100% BMI 40.72 kg/m Smoking Status Never Patient's Current Performance Status 0 General/Constitutional: Well developed, well nourished female, No acute distress. HEENT: Head: Normocephalic and atraumatic. Sclerae are anicteric. Neck: Supple, non-tender, with nolymphadenopathy. Cardiac: Regular rate and rhythm. Normal S1, S2. No murmurs, rubs or gallops. Pulmonary/Chest: Lungs are clear to auscultation bilaterally. No wheezes, rhonchi or rales noted. Abdominal: Abdomen with normoactive bowel sounds in all four quadrants. Soft, non-tender, non-distended. Extremities: moderate pitting edema in both legs. Skin: Skin is warm and dry. She is not diaphoretic. Psychiatric: Appropriate mood and affect. Breast exam: done in presence of a mechanical adjuster: palpable mass in right breast at 3 position is very small, hard to measure, no palpable lymph nodes. Impression and Recommendations: Right breast IDC, cT2N3b, grade 3, ER > 95%, VA 32%, HER2 equivocal, FISH negative, Ki-67 75%. We discussed that it is reasonable to try to downstage the axilla with neoadjuvant chemo based on grade 3 and high Ki-67. We discussed possible side effects of ddACT and she agreed to proceed. We also briefly discussed adjuvant treatment with AI and abemaciclib. Breast MRI done on 02/21/24 showed 3.3x3x2.4 cm cancer in right breast, enlarged right axillary and internal mammary nodes. Bone scan done on 02/13/[address] Scan C/A/P done on 02/13/24 showed possible hepatic hemangiomas. MRI-abdomen done on 02/25/24 showed hepatic hemangiomas. TTE done on 02/15/24 showed EF 60-65%. Port was placed on 02/16/24. She started ddAC on 02/23/24. Genetic testing was negative. She will get dose 10 of Taxol this visit. TTE was done on 06/14/24 due to LL edema. It showed EF 55-60%. Edema may be due to Taxol. She has grade 2 peripheral neuropathy and she would like to try gabapentin. She will start gabapentin 300 mg tid. Continue with weekly Taxol. Follow-up after surgery. I spent 40 minutes taking care of the patient with > 50% of the time spent in consultation, education and coordination of care. Lucio Joseph MD documented in this encounterOS[facility]12-27-[facility] Instructions* Patient Instructions* Shefali Galo RN - 06/28/2024 9:40 AM EST Images from the original note were not included. Start gabapentin one capsule once daily on the first day, one capsule twice daily on the second day, and then one capsule three times daily on day 3 and ongoing. When will my phone call be returned? Our providers will do their best to answer your call quickly. You should expect a returned call within 24 hours. If you have an emergency, please call 911 or go to your local emergency department. When will my Luqit message be returned? Our providers will do their best to answer your questions quickly. However, there are certain timeswhen you won t get a response. Our providers won t respond to messages on nights, weekends or holidays. Luqit messages are not for urgent issues, and you can expect a response within 3 business days. If you have an emergency, please call 911 or go to your local emergency department. A business day is Monday through Monday 8 a.m. to 4:30 p.m. When are my results released? Patients have access to most test results as soon as they are available. These results and notes could include sensitive information such as a cancer diagnosis. You always have the choice to wait to view your information in Luqit until you speak with your provider. When will my FMLA/Paperwork be returned? Please allow 7-10 business days for completion of FMLA/Paperwork to be returned. Patient Satisfaction Surveys: Your opinion matters! If you receive a patient satisfaction survey in the mail we would appreciate your thoughts. Please help us get better! Store controlled substances (for example - opioids/narcotics, certain stimulants, certain sedatives, etc.) in a locked cabinet or in an area only accessible to you. When you no longer need the controlled substances that have been prescribed for you, do NOT bring them to [facility]. We are NOT permitted under law to accept controlled substances from a patient for disposal. You may dispose of controlled substances, as well as other old or klkg-jdv-zrrahhz and prescription medications, by one of the safe methods listed below: A drug take-back program - this is the best method to dispose of medications safely. You can locatethe take-back program closest to you @ https://takebackday.[facility].gov under the COLLECTION SITE [employer]ER PIPELINES tab. The [facility] of pharmacy homepage also has an RX Disposal Ground Products Director tool @https://www.pharmacy.[place].gov/Compliance/DrugDisposal. If you cannot locate a drug take-back program, never dispose of medications down the sink or toilet. Instead, place the medication in a sealable storage bag and mix with damp coffee grounds, dirt, orcat litter, then seal the bag, and dispose of in your regular trash. If you have or unused cancer medication or hazardous drugs (this does not include Tamoxifen, Anastrozole, Letrozole or Exemestane), these may be potentially donated to our [facility] repository drug program and then given to other patients who are uninsured or underinsured. Ask your [facility] pharmacist about this program. documented in this encounterMer[facility]. [facility]12-20-2024 History of Present illness Narrative* Carlie Mejia RN - 06/21/2024 8:30 AM EST Patient received Taxol today - completed Cycle 3 Day 15.Patient tolerated infusion without incident. Patient to return for next treatment on 06/28/2024. See Teaching/Learning Flowsheet for education information. Patient discharged from clinic with her . Pt ambulated out without difficulty. Patient denied complaints upon discharge. Patient's next appointment verified. Instructed patient to call with any questions or concerns. Patient states understanding. documented in this [facility]OS[facility]12-13-[facility] History of Present illness Narrative* Sarah Prater RN - 06/14/2024 2:00 PM EST Pt has new breast pain like menstrual in left breast, just started today, no lumps or tender to touch just zingers. Also endorses continued DIAZ from last week but pt stated having dry nasal areas and bloody noses. RN instructed pt to call in next week if breast pain does not resolve and DIAZ are not better after initiating humidifier then notify team. * Kathe Giordano RN - 06/14/2024 2:[address] received taxol - completed [id number]. Patient to return for next treatment on 06/21. Patient's next appointment has been verified by RN. documented in this encounterOSU [facility]12-13-[facility] History of Present illness Narrative* Esperanza Conn RDCS - 06/14/2024 11:[address] was offered and declined a Medical Supervisor Spring Up for this exam/procedure/test 06/14/2024. documented in this encounterU [facility]12-03-20[facility] History of Present illness Narrative* Leonila Dewey RN - 06/04/2024 11:[address] seen in Medical Oncology clinic today. Nursing documentation of today's clinic visitreviewed. Milad Lane received taxol - completed [id number]. Patient to return for next treatment on 06/14/24. Patient's next appointment has been verified by RN. * Carlie Mejia RN - 06/04/2024 11:[address] seen in Medical Oncology clinic today. Nursing documentation of today's clinic visitreviewed. Message sent to [facility] Infusion Scheduling Pool to schedule patient for future appointments. Arrivalmessage sent to pharmacy to release saline and premeds as indicated. documented in this encounterMercy Health [facility]. [facility]12-03-2024 History of Present illness Narrative* Jenifer Olivo RN - 06/04/2024 10:20 AM EST Patient offered a medical mechanical adjuster for sensitive exam. Pt accepted Jenifer Olivo RN served as medical mechanical adjuster for the sensitive exam. Clinic to Infusion Handoff Report S - Patient coming from Exam to Infusion for treatment B - Clinic Nurse reviewed the following: Allergies yes Medications yes Vital signs within treatment parameters yes Patient accessed yes A - Reviewed patient assessment and verified following: ECOG/Toxicity yes Ht/wt yes Labs within treatment parameters Yes If no, MD/PRADEEP notified. Ok to Treat order entered Yes If no, MD/PRADEEP notified. Treatment plans signed yes If no, MD/PRADEEP notified. Report called to R - Recommendations for plan of care: Describe any changes to plan of care: none Patient has AVS, completed check out, and discharged to infusion unit For questions, please call: Jenifer Olivo RN * Lucio Joseph MD - 06/04/2024 10:20 AM EST History of Present Illness: Ms Lane presented to our clinic for breast cancer. She started to feel a mass in her right breast in January 2024. Bilateral diagnostic mammogram and right breast ultrasound showed 1.9x2.2x1.7 cm mass in right breast at 3 position along with 2.4x1.2x1.5 cm abnormal right axillary node. Biopsy of the mass showed IDC, grade 3, ER > 95%, VA 32%, HER2 equivocal, FISH negative, Ki-67 75%. Biopsy of the axillary node was positive for carcinoma. She has been referred to genetics. We discussed that itis reasonable to try to downstage the axilla with neoadjuvant chemo based on grade 3 and high Ki-67. We discussed possible side effects of ddACT and she agreed to proceed. We also briefly discussed adjuvant treatment with AI and abemaciclib. Breast MRI done on 02/21/24 showed 3.3x3x2.4 cm cancer in right breast, enlarged right axillary and internal mammary nodes. Bone scan done on 02/13/[address] Scan C/A/P done on 02/13/24 showed possible hepatic hemangiomas. MRI-abdomen done on 02/25/24 showed hepatic hemangiomas. TTE done on 02/15/24 showed EF 60- 65%. Port was placed on 02/16/24. She started ddAC on 02/23/24. Genetic testing was negative. Interval history: The patient presented for follow-up of her breast cancer and treatment. She will get dose 7 of Taxol this visit. She has grade 2 fatigue. She also has shortness of breath on exertion and edema in both legs. We discussed getting TTE. ANC is 1.69. Review of Systems: 11 point ROS is positive for grade 2 fatigue and shortness of breath on exertion. Physical Exam: Vitals: BP 141/69 (BP Location: Right arm, BP Position: Sitting) Pulse 68 Temp 98.1 F (36.7 C)(Oral) Resp 18 Wt 112.2 kg (247 lb 6.4 oz) SpO2 100% BMI 41.17 kg/m Smoking Status Never Patient's Current Performance Status 0 General/Constitutional: Well developed, well nourished female, No acute distress. HEENT: Head: Normocephalic and atraumatic. Sclerae are anicteric. Neck: Supple, non-tender, with nolymphadenopathy. Cardiac: Regular rate and rhythm. Normal S1, S2. No murmurs, rubs or gallops. Pulmonary/Chest: Lungs are clear to auscultation bilaterally. No wheezes, rhonchi or rales noted. Abdominal: Abdomen with normoactive bowel sounds in all four quadrants. Soft, non-tender, non-distended. Extremities: moderate pitting edema in both legs. Skin: Skin is warm and dry. She is not diaphoretic. Psychiatric: Appropriate mood and affect. Breast exam: done in presence of a mechanical adjuster: palpable mass in right breast at 3 position is very small, hard to measure, no palpable lymph nodes. Impression and Recommendations: Right breast IDC, cT2N3b, grade 3, ER > 95%, VA 32%, HER2 equivocal, FISH negative, Ki-67 75%. We discussed that it is reasonable to try to downstage the axilla with neoadjuvant chemo based on grade 3 and high Ki-67. We discussed possible side effects of ddACT and she agreed to proceed. We also briefly discussed adjuvant treatment with AI and abemaciclib. Breast MRI done on 02/21/24 showed 3.3x3x2.4 cm cancer in right breast, enlarged right axillary and internal mammary nodes. Bone scan done on 02/13/[address] Scan C/A/P done on 02/13/24 showed possible hepatic hemangiomas. MRI-abdomen done on 02/25/24 showed hepatic hemangiomas. TTE done on 02/15/24 showed EF 60-65%. Port was placed on 02/16/24. She started ddAC on 02/23/24. Genetic testing was negative. She will get dose 7 of Taxol this visit. She has grade 2 fatigue. She also has shortness of breath on exertion and edema in both legs. We discussed getting TTE. Continue with Taxol. Follow-up on 06/28. I spent 45 minutes taking care of the patient with > 50% of the time spent in consultation, education and coordination of care. Lucio Joseph MD documented [facility] this [facility]12-03-[facility]24 Instructions* Patient Instructions* Jenifer Olivo RN - 06/04/2024 10:20 AM EST Images from the original note were not included. When will my phone call be returned? Our providers will do their best to answer your call quickly. You should expect a returned call within 24 hours. If you have an emergency, please call 911 or go to your local emergency department. When will my Luqit message be returned? Our providers will do their best to answer your questions quickly. However, there are certain timeswhen you won t get a response. Our providers won t respond to messages on nights, weekends or holidays. Luqit messages are not for urgent issues, and you can expect a response within 3 business days. If you have an emergency, please call 911 or go to your local emergency department. A business day is Monday through Monday 8 a.m. to 4:30 p.m. When are my results released? Patients have access to most test results as soon as they are available. These results and notes could include sensitive information such as a cancer diagnosis. You always have the choice to wait to view your information in Luqit until you speak with your provider. When will my FMLA/Paperwork be returned? Please allow 7-10 business days for completion of FMLA/Paperwork to be returned. Patient Satisfaction Surveys: Your opinion matters! If you receive a patient satisfaction survey in the mail we would appreciate your thoughts. Please help us get better! Store controlled substances (for example - opioids/narcotics, certain stimulants, certain sedatives, etc.) in a locked cabinet or in an area only accessible to you. When you no longer need the controlled substances that have been prescribed for you, do NOT bring them to [facility]. We are NOT permitted under law to accept controlled substances from a patient for disposal. You may dispose of controlled substances, as well as other old or fgkc-wpy-kwenskp and prescription medications, by one of the safe methods listed below: A drug take-back program - this is the best method to dispose of medications safely. You can locatethe take-back program closest to you @ https://takebackday.[facility].gov under the COLLECTION SITE [employer]ER PIPELINES tab. The [facility] of pharmacy homepage also has an RX Disposal Ground Products Director tool @https://www.pharmacy.[place].gov/Compliance/DrugDisposal. If you cannot locate a drug take-back program, never dispose of medications down the sink or toilet. Instead, place the medication in a sealable storage bag and mix with damp coffee grounds, dirt, orcat litter, then seal the bag, and dispose of in your regular trash. If you have or unused cancer medication or hazardous drugs (this does not include Tamoxifen, Anastrozole, Letrozole or Exemestane), these may be potentially donated to our [facility] drug program and then given to other patients who are uninsured or underinsured. Ask your [facility] pharmacist about this program. documented in this [facility]11-22-2024 History of Present illness Narrative* Carlie Mejia RN - 05/24/2024 9:00 AM EST Patient received Taxol today - completed Cycle 2 Day 15.Patient tolerated infusion without incident. Patient to return for next treatment on 06/04/2024. See Teaching/Learning Flowsheet for education information. Patient discharged from clinic with her friend. Pt ambulated out without difficulty. Patient denied complaints upon discharge. Patient's next appointment verified. Instructed patient to call with any questions or concerns. Patient states understanding. Milad Lane received Flu Vaccine today. Patient tolerated and will return. documented in this encounterMercy [facility]. [facility]11-18-2024 History of Present illness Narrative* ROME Boucher - 05/20/2024 10:15 AM EST Subjective Clinical Care Team: -Referring Provider for today's consult: Emperatriz Jordan MD -Primary Care Provider: Emperatriz Jordan History of Present Illness: Chief Complaint Patient presents with Follow-up Mid chemo check, patient tolerating treatment well. Milad Lane is a 59 y.o. female who presents to the [facility] for follow up during chemotherapy. Shereports she is tolerating the chemotherapy well overall. She has been considering bilateral mastectomy with autologous flap reconstruction but is not yet decided. Review of presentation and treatment: 01/12/24 bilateral screening mammogram showed new right breast mass in the central medial anterior aspect of the right breast measuring 1.6 x 1.2 cm. Enlarged axillary lymph nodes were noted. Right axilla showed 2.4 x 1.5 cm irregular appearing lymph node in the right axilla with increased blood flow (BIRADS-5). Biopsy was recommended. 01/19/24 right breast biopsy showed invasive ductal carcinoma, grade 3, ER positive (>95%, strongintensity), VA positive (32%, moderate intensity), HER2 1- 2+ (equivocal) and FISH not amplified. Lymph node positive for metastatic carcinoma consistent with breast primary. 02/01/24 [facility] review of outside films showed suspicious right breast masses having undergonebiopsy at right breast 3:00 and in right axilla. It is not clear if clips were placed or type of clips placed. There is suggestion of possible associated calcifications extending outside the mass butcould represent artifact. This could be reassessed on diagnostic mammogram and repeat US could be performed to get better assessment of true size. 02/05/2024 presents to establish in Surg/Onc breast clinic with Dr. An. She reports right breast lump about six weeks prior to her screening mammogram but thought this may be a benign finding as hermother had a similar symptom in her past. She does report some pain and itching. She has noted somenumbness and tingling in the left arm for about 1 month. She is accompanied by her and daughter to today's visit. 02/13/2024: staging scans (CT C/A/P, nuc bone scan) No evidence of metastatic osseous/pulmonary, or in abdomen/pelvis. There is a 4.7 cm liver lesion - likely hemangioma 02/13/2024: genetic testing - negative 02/21/2024: breast MRI: 3.3x3x2.4 cm cancer in right breast, enlarged right axillary and internal mammary nodes 02/21/24: Dragonfly clip placed in previously biopsied right axillary node 02/23/2024: start neoadjuvant chemotherapy ddAC 02/25/2024: MRI abdomen - benign hepatic hemangioma, no evidence of metastatic disease in the abdomen 05/10/2024: cycle #2 Taxol She has a family history of breast cancer in her maternal aunt at age 72 and mother had pancreatic cancer at age 60 with recurrence at 71. He mother also had many skin cancers removed from her face (unknown origin). Her brother had bladder cancer at 72. I have reviewed Milad Lane medical, surgical and other pertinent history in detail, and have updated where appropriate in the computerized patient record. Oncologic History: Cancer Staging Malignant neoplasm of overlapping sites of right breast in female, estrogen receptor positive Staging form: Breast, AJCC 8th Edition - Clinical stage from 02/05/2024: Stage IIB (cT2, cN1(f), cM0, G3, ER+, VA+, HER2-) Oncology History Malignant neoplasm of overlapping sites of right breast in female, estrogen receptor positive 01/19/2024 Initial Diagnosis Malignant neoplasm of overlapping sites of right breast in female, grade 3, estrogen/progesterone receptor positive, HER2 1-2 + (equivocal), FISH pending with positive axillary lymph node. 02/05/2024 - Cancer Staged Staging form: Breast, AJCC 8th Edition - Clinical stage from 02/05/2024: Stage IIB (cT2, cN1(f), cM0, G3, ER+, VA+, HER2-) Medical/Surgical History: Past Medical History: Diagnosis Date Anxiety Essential hypertension, benign Goiter Malignant neoplasm of overlapping sites of right breast in female, estrogen receptor positive 01/19/2024 IDC, ER+/VA+/HER2 equivocal Uterine fibroid Past Surgical History: Procedure Laterality Date INSERTION CVC TUNNELED W/ PORT PUMP Left 02/16/2024 Laterality: Left; Surgeon: Leonila An MD; [facility]IOP GUIDANCE U/S VASCULAR ACCESS PROCEDURES ADD-ON PX Left 02/16/2024 Laterality: Left; Surgeon: Leonila An MD; [facility] GUIDANCE FLUOROSCOPIC PLACEMENT REPLACEMENT REMOVAL OF CVAD ADD-ON PX Left 02/16/2024 Laterality: Left; Surgeon: Leonila An MD; [facility] PERIOP CORE BIOPSY OF THE BREAST Right 01/19/2024 Malignant neoplasm of overlapping sites of right breast in female, estrogen receptor positive SECTION 1988 SECTION 1987 SECTION 1983 CHOLECYSTECTOMY 1983 HYSTERECTOMY OOPHORECTOMY LAVERN AND BSO 40's Family/Social History: Family History Problem Relation Age of Onset Cancer- Other Mother 60 pancreatic- 60, recurrance at 71. Multiple skin cancers pt thinks melanoma Cancer- Other Brother bladder passed at age 72 Cancer- Other Paternal Grandmother unknown type passed at age 39 Breast Cancer Maternal Aunt 76 recently diagnosed Cancer Maternal Uncle unknown type Cancer Maternal Uncle unknown type Breast Cancer Maternal Cousin 60 - 69 Leukemia Maternal Cousin 60 - 69 Ovarian Cancer Neg Hx Uterine Cancer Neg Hx Social History Socioeconomic History Marital status: Tobacco Use Smoking status: Never Smokeless tobacco: Never Vaping Use Vaping status: Never Used Substance and Sexual Activity Alcohol use: Yes Alcohol/week: 1.0 - 3.0 standard drink of alcohol Types: 1 - 3 Standard drinks or equivalent per week Drug use: Never Sexual activity: Yes Partners: Male control/protection: Hysterectomy 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 Patient denies hormonal therapy at this time. BREAST (GENERAL): Patient admits to self-breast exams and does them several times per month. Date of patient's first mammogram: Age 39 Date of most recent mammogram: 01/12/2024 Bra/Cup Size: 38DD BREAST(HISTORICAL BIOPSY/THERAPY/TREATMENT) Patient admits to previous breast biopsy(s). Patient admits to being told they personally have breast cancer or a breast malignancy. Patient denies chemotherapy, hormone therapy or radiation therapy during the last month. Social Determinants of Health Financial Resource Strain: Low Risk (05/20/2024) Overall Financial Resource Strain (CARDIA) Difficulty of Paying Living Expenses: Not hard at all Food Insecurity: No Food Insecurity (05/20/2024) Hunger Vital Sign Worried About Running Out of Food in the Last Year: Never true Ran Out of Food in the Last Year: Never true Transportation Needs: No Transportation Needs (05/20/2024) PRAPARE - Transportation Lack of Transportation (Medical): No Lack of Transportation (Non-Medical): No Medications/Allergies/Immunizations: Her current medication(s) include has a current medication list which includes the following prescription(s): Acetaminophen 325 MG tablet, B Complex Vitamins (VITAMIN B COMPLEX PO), ergocalciferol 1.25 MG (58543 UT) capsule, hydroCHLOROthiazide 25 MG tablet, Ibuprofen 400 MG tablet, levothyroxine 50 MCG tablet, Lidocaine-prilocaine 2.5-2.5 % cream, magnesium oxide 400 MG tablet, [place]-3 Fatty Acids (OMEGA 3 PO), PACLITAXEL IV, Prochlorperazine 10 MG tablet, vitamin E 400 units capsule, and Zolpidem (Ambien) 5 MG tablet. Allergies: Metronidazole and Tegaderm ag mesh [silver], Immunizations: Immunization History Administered Date(s) Administered Influenza Vaccine 05/24/2024 Social History Socioeconomic History Marital status: Spouse name: Not on file Number of children: Not on file Years of education: Not on file Highest education level: Not on file Occupational History Not on file Tobacco Use Smoking status: Never Smokeless tobacco: Never Vaping Use Vaping status: Never Used Substance and Sexual Activity Alcohol use: Yes Alcohol/week: 1.0 - 3.0 standard drink of alcohol Types: 1 - 3 Standard drinks or equivalent per week Drug use: Never Sexual activity: Yes Partners: Male control/protection: Hysterectomy Other Topics Concern Not on file 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 Patient denies hormonal therapy at this time. BREAST (GENERAL): Patient admits to self-breast exams and does them several times per month. Date of patient's first mammogram: Age 39 Date of most recent mammogram: 01/12/2024 Bra/Cup Size: 38DD BREAST(HISTORICAL BIOPSY/THERAPY/TREATMENT) Patient admits to previous breast biopsy(s). Patient admits to being told they personally have breast cancer or a breast malignancy. Patient denies chemotherapy, hormone therapy or radiation therapy during the last month. Social Determinants of Health Financial Resource Strain: Low Risk (05/20/2024) Overall Financial Resource Strain (CARDIA) Difficulty of Paying Living Expenses: Not hard at all Food Insecurity: No Food Insecurity (05/20/2024) Hunger Vital Sign Worried About Running Out of Food in the Last Year: Never true Ran Out of Food in the Last Year: Never true Transportation Needs: No Transportation Needs (05/20/2024) PRAPARE - Transportation Lack of Transportation (Medical): No Lack of Transportation (Non-Medical): No Physical Activity: Not on file Stress: Not on file Social Connections: Not on file Intimate Partner Violence: Not on file Housing Stability: Not on file Review of Systems: Review of Systems Constitutional: Negative. HENT: Negative. Eyes: Negative. Respiratory: Negative. Cardiovascular: Negative. Gastrointestinal: Negative. Endocrine: Negative. Genitourinary: Negative. Musculoskeletal: Negative. Allergic/Immunologic: Negative. Neurological: Negative. Hematological: Negative. Psychiatric/Behavioral: Negative. Objective Physical Exam: BP 144/81 (BP Location: Right arm, BP Position: Sitting) Pulse 78 Temp 97.9 F (36.6 C) (Oral) Wt 106.6 kg (235 lb) BMI 39.11 kg/m Smoking Status Never General/Constitutional: No acute distress. HEENT: Head: Normocephalic and atraumatic. Eyes: Extraocular movements are intact. Sclerae are anicteric. Neck: Supple, non-tender. Cardiac: Regular rate and rhythm. Pulmonary/Chest: Lungs are clear to ascultation bilaterally. Breast/lymphatics: Deferred to Dr. An Skin: Skin is warm and dry. Flush, pallor and rash absent. Abdominal: Soft, non-tender, non-distended. Extremities: Normal range of motion in all four extremities. Neurological: Conscious, alert and oriented. No focal neurologic deficit. Psychiatric: Appropriate mood and affect for clinical situation. Imaging: None new Path: Pathologic Diagnosis Outside Slides: [id number] (01/24/2024) A. Right Axillary Lymph Node, Core Biopsy: Fragments of lymph node with metastatic carcinoma (3 mm deposit) Comment: The provided immunohistochemical stains for pankeratin and GATA3 ae positive, supporting breast primary. B. Right Breast, Core Biopsy: Invasive ductal carcinoma, grade 3 (score: tubule 3, nuclear 3, mitotic 3), 0.8 cm in greatest length Biomarker results using slides and reports from the outside institution: ER: Positive (95%, strong intensity) VA: Positive (30%, moderate intensity) HER2: Equivocal (score 2+) HER2 FISH: Negative (ratio: 1.0, HER2/cell: 2.1) per report Comment: The provided immunohistochemical stains for MOC31 and CK8 are positive while CK5/6, calponin and p40 are negative. E-cadherin shows membranous staining, supporting ductal phenotype. Assessment & Plan Assessment & Plan: Milad Lane is a 59 y.o. female with right breast ER/VA positive, HER2 negative with positive axillary lymph node, AWD. Cancer Staging Malignant neoplasm of overlapping sites of right breast in female, estrogen receptor positive Staging form: Breast, AJCC 8th Edition - Clinical stage from 02/05/2024: Stage IIB (cT2, cN1(f), cM0, G3, ER+, VA+, HER2-) Patient seen and evaluated with Dr. Leonila An, who formulated the treatment plan. Please see Dr. An's note from the same day for further assessment and plan details. Attending Addendum I have seen the patient in conjunction with ROME Boucher and formulated the medical decision making, as above. I personally interviewed and examined the patient. I have reviewed all the available medical records, pertinent laboratory and diagnostic tests today. The plan was developed mutually at the time of this visit. I edited the above clinic note entirely and it reflects the details ofmy interview, exam, and medical decision making. Milad Lane is a 59 y.o. female that presented with right breast cancer with lymph node involvement. She noted a palpable lesion in the right breast just prior to scheduled mammogram. On mammogramshe was found to have 2.2cm mass at 3:00 in area of palpable concern. She had followup imaging which showed one abnormal right axillary lymph node measuring 2.4cm in greatest dimension with an additional normal appearing lymph node. She underwent biopsy of the right breast mass coil clip good and lymph node now with dragonfly clip which showed IDC, grade 3, ER/VA positive, HER2 negative on FISH with lymph node involvement. Breast: The breasts are examined in the upright and supine position. There are no palpable masses, skin retraction, nipple retraction in the left breast. In the right breast at 3:00 there is some fullness but overall improved since initial assessment. Lymphatics: There is no cervical or supraclavicular adenopathy present bilaterally. The right axillary node is not easily palpable today. There is no left axillary lymphadenopathy. Imaging reviewed in detail as per above. Path reviewed in detail. Assessment & Plan: Milad Lane is a 59 y.o. female with right breast cancer with lymph node involvement, AWD. I have reviewed with the patient their diagnosis of beast cancer with lymph node involvement. Surgical options for the treatment of breast cancer were reviewed. These include lumpectomy followed by radiation therapy and mastectomy with or without reconstruction were discussed with the patient. The equivalent survival between lumpectomy with adjuvant radiation therapy and mastectomy with or without reconstruction was discussed with the patient. Given the size of the lesion and the patient's breast size it was explained to the patient that she remains an excellent candidate for breast conservation therapy. We discussed at length the expected outcomes and recovery course of lumpectomy and RT as it compares to bilateral mastectomy with autologous reconstruction. With regards to axillary staging she should be a candidate for targeted axillary dissection to include removal of the radioactive seed localized node and sentinel with possible axillary lymph node dissection should she continue to have good response to therapy. She would need radioactive seed localization of the node if this is the case. We will review case with Dr. Joseph regarding follow up MRI at end of chemotherapy for radiologic assessment of response to therapy. She will follow up with Plastics to finalize reconstructive plan should she decide to proceed with bilateral mastectomy with flap reconstruction as well as to discuss possible pLVBP given possible need for axillary lymph node dissection. She will also need PT for pre-op lymphedema assessment. Patient will next us know in the next couple of weeks if she would like to proceed with lumpectomy or bilateral mastectomy with recon. We will plan for follow up in clinic near end of chemotherapy for surgical planning. Time spent: 45 minutes I spent the above mentioned duration reviewing this patient's case independently, discussing the case with colleagues, reviewing imaging and/or outside hospital reports, reviewing pathology reports, and development of documentation. Leonila An MD, FACS Surgical Oncology * Seda Bran RN - 05/20/2024 10:15 AM EST Patient offered a medical mechanical adjuster for sensitive exam. Patient declined mechanical adjuster. [facility] History of Present illness Narrative* Jenise An - 05/17/2024 1:30 PM EST DISPENSED & BILLED MED MUT- JR KRITSAL 6. TRIMMED & STEAMED BANGS. GAVE WIG LINER INSTEAD OF WIG KIT. [facility] History of Present illness Narrative* Marjorie Marmolejo RN - 05/17/2024 9:[address] received taxol - completed [id number]. Patient to return for next treatment on 05/24/24. Patient's next appointment has been verified by RN. Patient wearing ice mittens and socks intermittently during chemo today. documented in this [facility]11-08-2024 History of Present illness Narrative* Carlie Mejia RN - 05/10/2024 9:[address] seen in Medical Oncology clinic today. Nursing documentation of today's clinic visitreviewed. Message sent to [facility] Infusion Scheduling Pool to schedule patient for future appointments. Arrivalmessage sent to pharmacy to release saline and premeds as indicated. Patient received Taxol today - completed Cycle 2 Day 1.Patient tolerated infusion without incident.Patient to return for next treatment on 05/17/2024. See Teaching/Learning Flowsheet for education information. Patient discharged from clinic with her . Pt ambulated out without difficulty. Patient denied complaints upon discharge. Patient's next appointment verified. Instructed patient to call with any questions or concerns. Patient states understanding. [facility] History of Present illness Narrative* Jorje Jimenez MD - 05/10/2024 8:30 AM EST History of Present Illness: Ms Lane presented to our clinic for breast cancer. She started to feel a mass in her right breast in January 2024. Bilateral diagnostic mammogram and right breast ultrasound showed 1.9x2.2x1.7 cm mass in right breast at 3 position along with 2.4x1.2x1.5 cm abnormal right axillary node. Biopsy of the mass showed IDC, grade 3, ER > 95%, VA 32%, HER2 equivocal, FISH negative, Ki-67 75%. Biopsy of the axillary node was positive for carcinoma. She has been referred to genetics. We discussed that itis reasonable to try to downstage the axilla with neoadjuvant chemo based on grade 3 and high Ki-67. We discussed possible side effects of ddACT and she agreed to proceed. We also briefly discussed adjuvant treatment with AI and abemaciclib. Breast MRI done on 02/21/24 showed 3.3x3x2.4 cm cancer in right breast, enlarged right axillary and internal mammary nodes. Bone scan done on 02/13/[address] Scan C/A/P done on 02/13/24 showed possible hepatic hemangiomas. MRI-abdomen done on 02/25/24 showed hepatic hemangiomas. TTE done on 02/15/24 showed EF 60- 65%. Port was placed on 02/16/24. She started ddAC on 02/23/24. Genetic testing was negative. Interval history: The patient presented for follow-up of her breast cancer and treatment. She is doing well with Taxol and feels she is tolerating better than the AC. She has fatigue and bone/joint pain but is able todo all ADLs and IADLs. She did have very intermittent midsternal chest pain yesterday but it resolved on its own and was reproducible to palpation. No other new concerns at this time. No N/V and no neuropathy. Review of Systems: 10-point ROS negative other than as discussed in HPI Physical Exam: Vitals: Smoking Status Never Patient's Current Performance Status 0 General/Constitutional: Well developed, well nourished female, No acute distress. HEENT: Head: Normocephalic and atraumatic. Sclerae are anicteric. Neck: Supple, non-tender, with nolymphadenopathy. Cardiac: Regular rate and rhythm. Normal S1, S2. No murmurs, rubs or gallops. Pulmonary/Chest: Lungs are clear to auscultation bilaterally. No wheezes, rhonchi or rales noted. Abdominal: Abdomen with normoactive bowel sounds in all four quadrants. Soft, non-tender, non-distended. Extremities: N No cyanosis or clubbing or peripheral edema. Skin: Skin is warm and dry. She is not diaphoretic. Psychiatric: Appropriate mood and affect. Breast exam: done in presence of a mechanical adjuster: mass in right breast at 3 position is not easily palpable, no palpable lymph nodes. Impression and Recommendations: Right breast IDC, cT2N3b, grade 3, ER > 95%, VA 32%, HER2 equivocal, FISH negative, Ki-67 75%. We discussed that it is reasonable to try to downstage the axilla with neoadjuvant chemo based on grade 3 and high Ki-67. We discussed possible side effects of ddACT and she agreed to proceed. We also briefly discussed adjuvant treatment with AI and abemaciclib. Breast MRI done on 02/21/24 showed 3.3x3x2.4 cm cancer in right breast, enlarged right axillary and internal mammary nodes. -Bone scan done on 02/13/24 showed [place]. -CT Scan C/A/P done on 02/13/24 showed possible hepatic hemangiomas. -MRI-abdomen done on 02/25/24 showed hepatic hemangiomas. -TTE done on 02/15/24 showed EF 60-65%. -Port was placed on 02/16/24. -She started ddAC on 02/23/24. -Genetic testing was negative. Dose #4 Taxol today. ANC 2.64, Hb 11.5, PLT 197 She gets transient fatigue and mild nausea. Follow-up on 05/17, 05/24 for chemo and 06/04 for in clinic visit Patient seen and discussed with Dr. Opal Jimenez MD PGY-5, Fellow Hematology/Medical Oncology I saw Ms Lane with Dr Jimenez in clinic. I agree with the history, exam, assessment and plan as detailed above. She is tolerating Taxol well with good clinical response. Continue with weekly Taxol. Follow-up as above. I spent 40 minutes taking care of the patient with > 50% of the time spent in consultation, education and coordination of care. Lucio Joseph. * Jenifer Olivo RN - 05/10/2024 8:30 AM EST Patient offered a medical mechanical adjuster for sensitive exam. Pt accepted Jenifer Olivo RN served as medical mechanical adjuster for the sensitive exam. Clinic to Infusion Handoff Report S - Patient coming from Exam to Infusion for treatment B - Clinic Nurse reviewed the following: Allergies yes Medications yes Vital signs within treatment parameters yes Patient accessed yes A - Reviewed patient assessment and verified following: ECOG/Toxicity yes Ht/wt yes Labs within treatment parameters Yes If no, MD/PRADEEP notified. Ok to Treat order entered Yes If no, MD/PRADEEP notified. Treatment plans signed yes If no, MD/PRADEEP notified. Report called to R - Recommendations for plan of care: Describe any changes to plan of care: none Patient has AVS, completed check out, and discharged to infusion unit For questions, please call: Jenifer Olivo RN [facility] in this [facility] Instructions* Patient Instructions* Jenifer Olivo RN - 05/10/2024 8:30 AM EST Images from the original note were not included. When will my phone call be returned? Our providers will do their best to answer your call quickly. You should expect a returned call within 24 hours. If you have an emergency, please call 911 or go to your local emergency department. When will my Luqit message be returned? Our providers will do their best to answer your questions quickly. However, there are certain timeswhen you won t get a response. Our providers won t respond to messages on nights, weekends or holidays. Luqit messages are not for urgent issues, and you can expect a response within 3 business days. If you have an emergency, please call 911 or go to your local emergency department. A business day is Monday through Monday 8 a.m. to 4:30 p.m. When are my results released? Patients have access to most test results as soon as they are available. These results and notes could include sensitive information such as a cancer diagnosis. You always have the choice to wait to view your information in Tuxebot until you speak with your provider. When will my FMLA/Paperwork be returned? Please allow 7-10 business days for completion of FMLA/Paperwork to be returned. Patient Satisfaction Surveys: Your opinion matters! If you receive a patient satisfaction survey in the mail we would appreciate your thoughts. Please help us get better! Store controlled substances (for example - opioids/narcotics, certain stimulants, certain sedatives, etc.) in a locked cabinet or in an area only accessible to you. When you no longer need the controlled substances that have been prescribed for you, do NOT bring them to [facility]. We are NOT permitted under law to accept controlled substances from a patient for disposal. You may dispose of controlled substances, as well as other old or [id number] and prescription medications, by one of the safe methods listed below: A drug take-back program - this is the best method to dispose of medications safely. You can locatethe take-back program closest to you @ https://takebackday.[place].gov under the [employer]ES tab. The [facility] Board of pharmacy homepage also has an RX Disposal Ground Products Director tool @https://www.pharmacy.[place].gov/Compliance/DrugDisposal. If you cannot locate a drug take-back program, never dispose of medications down the sink or toilet. Instead, place the medication in a sealable storage bag and mix with damp coffee grounds, dirt, orcat litter, then seal the bag, and dispose of in your regular trash. If you have or unused cancer medication or hazardous drugs (this does not include Tamoxifen, Anastrozole, Letrozole or Exemestane), these may be potentially donated to our [facility] repository drug program and then given to other patients who are uninsured or underinsured. Ask your [facility] pharmacist about this program. documented in this [facility] History of Present illness Narrative* Zaria Cortes RN - 05/03/2024 9:00 AM EDT Patient arrived to infusion. Message sent to pharmacy to notify of arrival. Pt asking for tylenol for a headache. Called charge nurse as unsure who was covering. Per charge nurse, Panchito Croft, PAc will place order. 1017 Tylenol 650mg given for headache. Still awaiting chemo to be ready from pharmacy. Milad Lane received Taxol today - completed Cycle 1 Day 15. Patient tolerated well and will return for next treatment on 05/10/24 for cycle 2 day 1. See Teaching/Learning Flowsheet for education information. Patient discharged from clinic. Patient denied complaints upon discharge. Patient's nextappointment verified. Instructed patient to call with any questions or concerns. Patient states understanding. * Kayce Croft PA-C - 05/03/2024 9:00 AM EDT Chemo RN reports Patient with headache- tylenol 650 mg x 1 ordered [facility] History of Present illness Narrative* Zaria Cortes RN - 04/26/2024 9:00 AM EDT Patient arrived to infusion. Message sent to pharmacy to notify of arrival. 1009 Taxol # 2 initiated per protocol. Reviewed s/sx's of HSR with patient and family. RN remains at bedside to monitor for first 15 minutes. Stat kit available. Milad Lane received Taxol today - completed Cycle 1 Day 8. Patient tolerated well and will return for next treatment on 05/03/24 for cycle 1 day 15. See Teaching/Learning Flowsheet for education information. Patient discharged from clinic. Patient denied complaints upon discharge. Patient's nextappointment verified. Instructed patient to call with any questions or concerns. Patient states understanding. documented in this encounter[facility] History of Present illness Narrative* Megan Snyder RN - 04/19/2024 11:[address] seen in Medical Oncology clinic today. Nursing documentation of today's clinic visitreviewed. Message sent to [facility] Infusion Scheduling Pool to schedule patient for future appointments. Arrival message sent to pharmacy to release saline and premeds as indicated. RTC as previously scheduled. Milad Lane received Taxol today - completed Cycle 1 Day 1. No signs or symptoms of a reaction noted. Patient to return for next treatment on 04/26. Pt left ambulatory accompanied by family. documented in this encounterMer[facility]10-18-20[facility] History of Present illness Narrative* Shefali Galo RN - 04/19/2024 10:20 AM EDT Shefali Galo RN served as medical mechanical adjuster for sensitive exam. Clinic to Infusion Handoff Report S - Patient coming from Exam to Infusion for treatment - Taxol B - Clinic Nurse reviewed the following: Allergies yes Medications yes Vital signs within treatment parameters yes Patient accessed yes A - Reviewed patient assessment and verified following: ECOG/Toxicity yes Ht/wt yes Labs within treatment parameters Yes If no, MD/PRADEEP notified. Ok to Treat order entered N/A If no, MD/PRADEEP notified. Treatment plans signed yes If no, MD/PRADEEP notified. R - Recommendations for plan of care: Describe any changes to plan of care: none Patient has AVS, completed check out, and discharged to infusion unit. For questions, please call: Shefali Galo RN * Lucio Joseph MD - 04/19/2024 10:20 AM EDT History of Present Illness: Ms Lane presented to our clinic for breast cancer. She started to feel a mass in her right breast in January 2024. Bilateral diagnostic mammogram and right breast ultrasound showed 1.9x2.2x1.7 cm mass in right breast at 3 position along with 2.4x1.2x1.5 cm abnormal right axillary node. Biopsy of the mass showed IDC, grade 3, ER > 95%, VA 32%, HER2 equivocal, FISH negative, Ki-67 75%. Biopsy of the axillary node was positive for carcinoma. She has been referred to genetics. We discussed that itis reasonable to try to downstage the axilla with neoadjuvant chemo based on grade 3 and high Ki-67. We discussed possible side effects of ddACT and she agreed to proceed. We also briefly discussed adjuvant treatment with AI and abemaciclib. Breast MRI done on 02/21/24 showed 3.3x3x2.4 cm cancer in right breast, enlarged right axillary and internal mammary nodes. Bone scan done on 02/13/[address] Scan C/A/P done on 02/13/24 showed possible hepatic hemangiomas. MRI-abdomen done on 02/25/24 showed hepatic hemangiomas. TTE done on 02/15/24 showed EF 60- 65%. Port was placed on 02/16/24. She started ddAC on 02/23/24. Genetic testing was negative. Interval history: The patient presented for follow-up of her breast cancer and treatment. She will start Taxol this visit. ANC 3.1, Hb 11.5, PLT 191. She gets transient fatigue and mild nausea. Review of Systems: 11 point ROS is positive for mild transient fatigue, mild nausea and chronic foot pain. Physical Exam: Vitals: BP 126/60 (BP Location: Right arm, BP Position: Sitting) Pulse 66 Temp 97.6 F (36.4 C) (Oral) Resp 18 Wt 104 kg (229 lb 3.2 oz) SpO2 99% BMI 38.14 kg/m Smoking Status Never Patient's Current Performance Status 0 General/Constitutional: Well developed, well nourished female, No acute distress. HEENT: Head: Normocephalic and atraumatic. Sclerae are anicteric. Neck: Supple, non-tender, with nolymphadenopathy. Cardiac: Regular rate and rhythm. Normal S1, S2. No murmurs, rubs or gallops. Pulmonary/Chest: Lungs are clear to auscultation bilaterally. No wheezes, rhonchi or rales noted. Abdominal: Abdomen with normoactive bowel sounds in all four quadrants. Soft, non-tender, non-distended. Extremities: N No cyanosis or clubbing or peripheral edema. Skin: Skin is warm and dry. She is not diaphoretic. Psychiatric: Appropriate mood and affect. Breast exam: done in presence of a mechanical adjuster: palpable mass in right breast at 3 position is not easily palpable, no palpable lymph nodes. Impression and Recommendations: Right breast IDC, cT2N3b, grade 3, ER > 95%, VA 32%, HER2 equivocal, FISH negative, Ki-67 75%. We discussed that it is reasonable to try to downstage the axilla with neoadjuvant chemo based on grade 3 and high Ki-67. We discussed possible side effects of ddACT and she agreed to proceed. We also briefly discussed adjuvant treatment with AI and abemaciclib. Breast MRI done on 02/21/24 showed 3.3x3x2.4 cm cancer in right breast, enlarged right axillary and internal mammary nodes. Bone scan done on 02/13/[address] Scan C/A/P done on 02/13/24 showed possible hepatic hemangiomas. MRI-abdomen done on 02/25/24 showed hepatic hemangiomas. TTE done on 02/15/24 showed EF 60-65%. Port was placed on 02/16/24. She started ddAC on 02/23/24. Genetic testing was negative. She will start Taxol this visit. ANC 3.1, Hb 11.5, PLT 191. She gets transient fatigue and mild nausea. Taxol on 04/26 and 05/03. Follow-up on 05/10 for labs, clinic visit and Taxol. I spent 40 minutes taking care of the patient with > 50% of the time spent in consultation, education and coordination of care. Lucio Joseph MD documented in this encounterMercy Health St[facility]10-18-2024 Instructions* Patient Instructions* Shefali Galo RN - 04/19/2024 10:20 AM EDT Images from the original note were not included. When will my phone call be returned? Our providers will do their best to answer your call quickly. You should expect a returned call within 24 hours. If you have an emergency, please call 911 or go to your local emergency department. When will my Luqit message be returned? Our providers will do their best to answer your questions quickly. However, there are certain timeswhen you won t get a response. Our providers won t respond to messages on nights, weekends or holidays. Luqit messages are not for urgent issues, and you can expect a response within 3 business days. If you have an emergency, please call 911 or go to your local emergency department. A business day is Monday through Monday 8 a.m. to 4:30 p.m. When are my results released? Patients have access to most test results as soon as they are available. These results and notes could include sensitive information such as a cancer diagnosis. You always have the choice to wait to view your information in Luqit until you speak with your provider. When will my FMLA/Paperwork be returned? Please allow 7-10 business days for completion of FMLA/Paperwork to be returned. Patient Satisfaction Surveys: Your opinion matters! If you receive a patient satisfaction survey in the mail we would appreciate your thoughts. Please help us get better! Store controlled substances (for example - opioids/narcotics, certain stimulants, certain sedatives, etc.) in a locked cabinet or in an area only accessible to you. When you no longer need the controlled substances that have been prescribed for you, do NOT bring them to [facility]. We are NOT permitted under law to accept controlled substances from a patient for disposal. You may dispose of controlled substances, as well as other old or ywrz-dar-rkgpbkr and prescription medications, by one of the safe methods listed below: A drug take-back program - this is the best method to dispose of medications safely. You can locatethe take-back program closest to you @ https://takebackday.[facility].gov under the COLLECTION SITE LABORER PIPELINES tab. The [facility] of pharmacy homepage also has an RX Disposal Ground Products Director tool @https://www.pharmacy.[place].gov/Compliance/DrugDisposal. If you cannot locate a drug take-back program, never dispose of medications down the sink or toilet. Instead, place the medication in a sealable storage bag and mix with damp coffee grounds, dirt, orcat litter, then seal the bag, and dispose of in your regular trash. If you have or unused cancer medication or hazardous drugs (this does not include Tamoxifen, Anastrozole, Letrozole or Exemestane), these may be potentially donated to our [facility] repository drug program and then given to other patients who are uninsured or underinsured. Ask your [facility] pharmacist about this program. * Attachments The following attachments cannot be sent through Care Everywhere. * Mouth Sores - Managing Cancer Side Effects ([facility]) ([place]) documented in this encounterMercy Health St. [facility]10-04-2024 History of Present illness Narrative* Gloria Nava RN - 04/05/2024 11:[address] received treatment today - completed Cycle 4 Day 1. Patient to return for next treatment on 04/19/24. OnBody Injector Application Neulasta (Pegfilgrastim): On-body Injector Patient instructed to call their [facility] physician if there are any concerns- Time and date of OBI removal reviewed with pt. and - pt. and verbalized understanding of instructions. Green light flashing. yes documented in this encounterMercy Health St. [facility]10-04-2024 History of Present illness Narrative* Wayne López, COUNTY HOME DEMONSTRATION AGENT-SERVICE ADMINISTRATOR - 04/05/2024 10:00 AM EDT History of Present Illness: Milad Lane presented to our clinic for breast cancer. She felt a mass in her right breast in January 2024. Bilateral diagnostic mammogram and right breast ultrasound showed 1.9x2.2x1.7 cm mass in right breast at 3 position along with 2.4x1.2x1.5 cm abnormal right axillary node. Biopsy of the mass showed IDC, grade 3, ER > 95%, VA 32%, HER2 equivocal, FISH negative, Ki-67 75%. Biopsy of the axillary node was positive for carcinoma. She has been referred to genetics. We discussed that it is reasonable to try to downstage the axilla with neoadjuvant chemo based on grade 3 and high Ki-67. We discussed possible side effects of ddACT and she agreed to proceed. We also briefly discussed adjuvant treatment with AI and abemaciclib. Interval history: C4 AC She reports R foot pain. 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 She uses Tylenol for the pain. This has been present since before chemo. Symptoms are stable. She reports nausea for several days after chemo. By Monday energy is improved and nausea is improved She denies any diarrhea or constipation. She takes magnesium and this has kept her constipation normalized She reports mouth sores that resolved on their own. She reports a rash on her legs. This was discussed at her last visit. She uses hydrocortisone for itching. Review of Systems: 11 point ROS is positive as noted above Physical Exam: Vitals: Vitals: 04/05/24 1036 BP: 139/66 Pulse: 68 Resp: 16 Temp: 97.4 degrees F (36.3 degrees C) TempSrc: Oral SpO2: 100% Weight: 101.5 kg (223 lb 12.8 oz) Wt Readings from Last 3 Encounters: 04/05/24 101.5 kg (223 lb 12.8 oz) 03/22/24 99.8 kg (220 lb) 03/08/24 98 kg (216 lb) Smoking Status Never Patient's Current Performance Status 0 General/Constitutional: Well developed, well nourished female, No acute distress. HEENT: Head: Normocephalic and atraumatic. Sclerae are anicteric. Neck: Supple, non-tender, with nolymphadenopathy. Cardiac: Regular rate and rhythm. Normal S1, S2. No murmurs, rubs or gallops. Pulmonary/Chest: Lungs are clear to auscultation bilaterally. No wheezes, rhonchi or rales noted. Abdominal: Abdomen with normoactive bowel sounds in all four quadrants. Soft, non-tender, non-distended. Extremities: N No cyanosis or clubbing or peripheral edema. Skin: Skin is warm and dry. She is not diaphoretic. Psychiatric: Appropriate mood and affect. Breast exam: palpable mass in right breast at 3 position, no palpable lymph nodes. Impression and Recommendations: Right breast IDC, cT2N3b, grade 3, ER > 95%, VA 32%, HER2 equivocal, FISH negative, Ki-67 75%. We discussed that it is reasonable to try to downstage the axilla with neoadjuvant chemo based on grade 3 and high Ki-67. We discussed possible side effects of ddACT and she agreed to proceed. We also briefly discussed adjuvant treatment with AI and abemaciclib. Breast MRI done on 02/21/24 showed 3.3x3x2.4 cm cancer in right breast, enlarged right axillary and internal mammary nodes. Bone scan done on 02/13/[address] Scan C/A/P done on 02/13/24 showed possible hepatic hemangiomas. MRI-abdomen done on 02/25/24 showed hepatic hemangiomas. TTE done on 02/15/24 showed EF 60-65%. Port was placed on 02/16/24. She started ddAC on 02/23/24. 04/05/2024 C4 AC. Labs reviewed and appropriate for treatment. Genetic testing was negative. RTC 2 weeks Bader, labs, C1D1 taxol Return for 2 weeks Bader, labs, C1 taxol. ROME Farley * Hodan Raphael RN - 04/05/2024 10:00 AM EDT Patient offered a medical mechanical adjuster for sensitive exam. Pt declined Clinic to Infusion Handoff Report S - Patient coming from Exam to Infusion for treatment C4 AC B - Clinic Nurse reviewed the following: Allergies yes Medications yes Vital signs within treatment parameters yes Patient accessed yes, port A - Reviewed patient assessment and verified following: ECOG/Toxicity yes Ht/wt yes Labs within treatment parameters Yes If no, MD/PRADEEP notified. Ok to Treat order entered N/A If no, MD/PRADEEP notified. Treatment plans signed yes If no, MD/PRADEEP notified. Report called to R - Recommendations for plan of care: Describe any changes to plan of care: other, see notes above Patient has AVS, completed check out, and discharged to infusion unit For questions, please call: Hodan Raphael RN documented in this encounterMercy Health St. [facility]10-04-2024 Instructions* Patient Instructions* Hodan Raphael RN - 04/05/2024 10:00 AM EDT Images from the original note were not included. When will my phone call be returned? Our providers will do their best to answer your call quickly. You should expect a returned call within 24 hours. If you have an emergency, please call 911 or go to your local emergency department. When will my Luqit message be returned? Our providers will do their best to answer your questions quickly. However, there are certain timeswhen you won t get a response. Our providers won t respond to messages on nights, weekends or holidays. Luqit messages are not for urgent issues, and you can expect a response within 3 business days. If you have an emergency, please call 911 or go to your local emergency department. A business day is Monday through Monday 8 a.m. to 4:30 p.m. When are my results released? Patients have access to most test results as soon as they are available. These results and notes could include sensitive information such as a cancer diagnosis. You always have the choice to wait to view your information in MyChart until you speak with your provider. When will my FMLA/Paperwork be returned? Please allow 7-10 business days for completion of FMLA/Paperwork to be returned. Patient Satisfaction Surveys: Your opinion matters! If you receive a patient satisfaction survey in the mail we would appreciate your thoughts. Please help us get better! Store controlled substances (for example - opioids/narcotics, certain stimulants, certain sedatives, etc.) in a locked cabinet or in an area only accessible to you. When you no longer need the controlled substances that have been prescribed for you, do NOT bring them to [facility]. We are NOT permitted under law to accept controlled substances from a patient for disposal. You may dispose of controlled substances, as well as other old or kkzh-jdu-fvbmfnp and prescription medications, by one of the safe methods listed below: A drug take-back program - this is the best method to dispose of medications safely. You can locatethe take-back program closest to you @ https://takebackday.[facility].gov under the COLLECTION SITE LABORER PIPELINES tab. The [facility] of pharmacy homepage also has an RX Disposal Ground Products Director tool @https://www.pharmacy.[place].gov/Compliance/DrugDisposal. If you cannot locate a drug take-back program, never dispose of medications down the sink or toilet. Instead, place the medication in a sealable storage bag and mix with damp coffee grounds, dirt, orcat litter, then seal the bag, and dispose of in your regular trash. If you have or unused cancer medication or hazardous drugs (this does not include Tamoxifen, Anastrozole, Letrozole or Exemestane), these may be potentially donated to our [facility] repository drug program and then given to other patients who are uninsured or underinsured. Ask your [facility] pharmacist about this program. documented in this encounterMercy Health St. [facility]10-02-2024 NoteRequest received from Leonila An MD for second opinion consultation on slides received: Please review breast slides from outside institution. Dr. An 02/04. Pre-Op Diagnosis: right breast mass.[facility] Comment on above:Performed By: #### SURGP ####[facility] (DEFAULT)[address] [place] [address] [id number] History of Present illness Narrative* Evelyn Handy RN - 03/22/2024 10:30 AM EDT Message sent to [facility] Infusion Scheduling Pool to schedule patient for future appointments. Arrivalmessage sent to pharmacy to release saline and premeds as indicated. * Shilpi Howell RN - 03/22/2024 10:30 AM EDT OnBody Injector Application Neulasta (Pegfilgrastim): On-body Injector On-body injector was applied: 03/22/24 1255 Dose delivery will start around: 03/23/24 1555 Lot # on kit containing all contents (7 digits): [id number] Lot # on OBI device (13 digits): [id number] Patient instructed to call their [place] physician at [phone] for concerns * Sebastián Guaman RN - 03/22/2024 10:[address] received Adriamycin, Cytoxan, neulasta OBI - completed [id number]. RN checked for blood return every 2-3 mls while giving Adriamycin. No redness, swelling or signs of extravasation during IV push. Patient to return for next treatment on 04/05/24. Patient's next appointment has been verified by RN. documented in this encounterOS[facility]09-20-[facility] History of Present illness Narrative* Linnea Orellana RN - 03/22/2024 9:20 AM EDT Patient offered a medical mechanical adjuster for sensitive exam. Pt declined. Clinic to Infusion Handoff Report S - Patient coming from Exam to Infusion for treatment ddAC B - Clinic Nurse reviewed the following: Allergies yes Medications yes Vital signs within treatment parameters yes Patient accessed yes A - Reviewed patient assessment and verified following: ECOG/Toxicity yes Ht/wt yes Labs within treatment parameters Yes If no, MD/PRADEEP notified. Ok to Treat order entered N/A If no, MD/PRADEEP notified. Treatment plans signed yes If no, MD/PRADEEP notified. Report called to R - Recommendations for plan of care: Describe any changes to plan of care: none Patient has AVS, completed check out, and discharged to infusion unit For questions, please call: Linnea Orellana RN * Lucio Joseph MD - 03/22/2024 9:20 AM EDT History of Present Illness: Ms Lane presented to our clinic for breast cancer. She started to feel a mass in her right breast in January 2024. Bilateral diagnostic mammogram and right breast ultrasound showed 1.9x2.2x1.7 cm mass in right breast at 3 position along with 2.4x1.2x1.5 cm abnormal right axillary node. Biopsy of the mass showed IDC, grade 3, ER > 95%, VA 32%, HER2 equivocal, FISH negative, Ki-67 75%. Biopsy of the axillary node was positive for carcinoma. She has been referred to genetics. We discussed that itis reasonable to try to downstage the axilla with neoadjuvant chemo based on grade 3 and high Ki-67. We discussed possible side effects of ddACT and she agreed to proceed. We also briefly discussed adjuvant treatment with AI and abemaciclib. Interval history: The patient presented for follow-up of her breast cancer and treatment. Breast MRI done on 02/21/24 showed 3.3x3x2.4 cm cancer in right breast, enlarged right axillary and internal mammary nodes. Bonescan done on 02/13/[address] Scan C/A/P done on 02/13/24 showed possible hepatic hemangiomas.MRI-abdomen done on 02/25/24 showed hepatic hemangiomas. TTE done on 02/15/24 showed EF 60-65%. Port was placed on 02/16/24. She started ddAC on 02/23/24. Genetic testing was negative. She will get cycle3 AC this visit. She has mild transient fatigue, mild nausea, and grade 1 rash for which she has been using topical hydrocortisone. Review of Systems: 11 point ROS is positive for mild transient fatigue, mild nausea, and grade 1 rash for which she has been using topical hydrocortisone. Physical Exam: Vitals: BP 132/64 (BP Location: Right arm, BP Position: Sitting) Pulse 70 Temp 97.8 F (36.6 C) (Oral) Resp 16 Wt 99.8 kg (220 lb) SpO2 100% BMI 36.61 kg/m Smoking Status Never Patient's Current Performance Status 0 General/Constitutional: Well developed, well nourished female, No acute distress. HEENT: Head: Normocephalic and atraumatic. Sclerae are anicteric. Neck: Supple, non-tender, with nolymphadenopathy. Cardiac: Regular rate and rhythm. Normal S1, S2. No murmurs, rubs or gallops. Pulmonary/Chest: Lungs are clear to auscultation bilaterally. No wheezes, rhonchi or rales noted. Abdominal: Abdomen with normoactive bowel sounds in all four quadrants. Soft, non-tender, non-distended. Extremities: N No cyanosis or clubbing or peripheral edema. Skin: Skin is warm and dry. She is not diaphoretic. Psychiatric: Appropriate mood and affect. Breast exam: done in presence of a mechanical adjuster: palpable mass in right breast at 3 position measuringaround 1 cm, I could not feel lymph nodes. Impression and Recommendations: Right breast IDC, cT2N3b, grade 3, ER > 95%, VA 32%, HER2 equivocal, FISH negative, Ki-67 75%. We discussed that it is reasonable to try to downstage the axilla with neoadjuvant chemo based on grade 3 and high Ki-67. We discussed possible side effects of ddACT and she agreed to proceed. We also briefly discussed adjuvant treatment with AI and abemaciclib. Breast MRI done on 02/21/24 showed 3.3x3x2.4 cm cancer in right breast, enlarged right axillary and internal mammary nodes. Bone scan done on 02/13/[address] Scan C/A/P done on 02/13/24 showed possible hepatic hemangiomas. MRI-abdomen done on 02/25/24 showed hepatic hemangiomas. TTE done on 02/15/24 showed EF 60-65%. Port was placed on 02/16/24. She started ddAC on 02/23/24. Genetic testing was negative. She will get cycle 3 AC this visit. She has mild transient fatigue, mild nausea, and grade 1 rash for which she has been using topical hydrocortisone. Follow-up in 2 weeks for labs, clinic visit and cycle 4 AC. I spent 50 minutes taking care of the patient with > 50% of the time spent in consultation, education and coordination of care. Lucio Joseph MD documented in this encounterMercy Health St. [facility]09-20-2024 Instructions* Patient Instructions* Linnea Orellana RN - 03/22/2024 9:20 AM EDT Images from the original note were not included. When will my phone call be returned? Our providers will do their best to answer your call quickly. You should expect a returned call within 24 hours. If you have an emergency, please call 911 or go to your local emergency department. When will my Luqit message be returned? Our providers will do their best to answer your questions quickly. However, there are certain timeswhen you won t get a response. Our providers won t respond to messages on nights, weekends or holidays. Luqit messages are not for urgent issues, and you can expect a response within 3 business days. If you have an emergency, please call 911 or go to your local emergency department. A business day is Monday through Monday 8 a.m. to 4:30 p.m. When are my results released? Patients have access to most test results as soon as they are available. These results and notes could include sensitive information such as a cancer diagnosis. You always have the choice to wait to view your information in Luqit until you speak with your provider. When will my FMLA/Paperwork be returned? Please allow 7-10 business days for completion of FMLA/Paperwork to be returned. Patient Satisfaction Surveys: Your opinion matters! If you receive a patient satisfaction survey in the mail we would appreciate your thoughts. Please help us get better! Store controlled substances (for example - opioids/narcotics, certain stimulants, certain sedatives, etc.) in a locked cabinet or in an area only accessible to you. When you no longer need the controlled substances that have been prescribed for you, do NOT bring them to [facility]. We are NOT permitted under law to accept controlled substances from a patient for disposal. You may dispose of controlled substances, as well as other old or xzie-fgh-idamusr and prescription medications, by one of the safe methods listed below: A drug take-back program - this is the best method to dispose of medications safely. You can locatethe take-back program closest to you @ https://takebackday.[facility].gov under the COLLECTION SITE LABORER PIPELINES tab. The [facility] of pharmacy homepage also has an RX Disposal Ground Products Director tool @https://www.pharmacy.[place].gov/Compliance/DrugDisposal. If you cannot locate a drug take-back program, never dispose of medications down the sink or toilet. Instead, place the medication in a sealable storage bag and mix with damp coffee grounds, dirt, orcat litter, then seal the bag, and dispose of in your regular trash. If you have or unused cancer medication or hazardous drugs (this does not include Tamoxifen, Anastrozole, Letrozole or Exemestane), these may be potentially donated to our [facility] repository drug program and then given to other patients who are uninsured or underinsured. Ask your [facility] pharmacist about this program. documented in this encounter[facility] History of Present illness Narrative* Jenise An - 03/08/2024 1:00 PM EDT MILAD HAS MED MUTUAL & HAS REACHED HER OUT OF POCKET. DISPENSED & BILLED MED CLARENCE- JR VILLANUEVA S4. JR GILL . LAKESHIA SANCHEZ. STEAMED SIDE PART. 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 SHE GOT A WIG LAST WEEK. C50.811 OPAL. documented in this encounter[facility] History of Present illness Narrative* Kathe Giordano RN - 03/08/2024 11:[address] seen in Medical Oncology clinic today. Nursing documentation of today's clinic visitreviewed. Message sent to [facility] Infusion Scheduling Pool to schedule patient for future appointments. Arrivalmessage sent to pharmacy to release saline and premeds as indicated. * Marjorie Marmolejo RN - 03/08/2024 11:00 AM EDT Last echo done on 02/15/24 and LVEF=55-60%, -21.8% .GLS OnBody Injector Application Neulasta (Pegfilgrastim): On-body Injector On-body injector was applied: 03/08/24date 1340 time AM/PM Dose delivery will start around: 03/09/24date 1640time AM/PM Lot # on kit containing all contents (7 digits): [id number] Lot # on OBI device (13 digits): [id number], [id number] Patient instructed to call their [place] physician at [phone] received AC - completed [id number]. Patient to return for next treatment on 03/22/24. Patient's next appointment has been verified by RN. Patient ate popsicle during the adriamycin IVP. Patient to [facility] after chemo today. documented in this encounterOS[facility] Miscellaneous Notes* Addendum Note - Marjorie Marmolejo RN - 03/08/2024 11:00 AM EDTAddended by: MARJORIE MARMOLEJO on: 03/08/2024 05:33 PM Modules accepted: Level of Service documented in this encounterOS[facility] Note* Addendum Note - Marjorie Marmolejo RN - 03/08/2024 11:00 AM EDTAddended by: MARJORIE MARMOLEJO on: 03/08/2024 05:33 PM Modules accepted: Level of Service [facility] History of Present illness Narrative* Wayne López, LUDIVINA-EMERALD - 03/08/2024 10:00 AM EDT History of Present Illness: Milad Lane presented to our clinic for breast cancer. She felt a mass in her right breast in January 2024. Bilateral diagnostic mammogram and right breast ultrasound showed 1.9x2.2x1.7 cm mass in right breast at 3 position along with 2.4x1.2x1.5 cm abnormal right axillary node. Biopsy of the mass showed IDC, grade 3, ER > 95%, VA 32%, HER2 equivocal, FISH negative, Ki-67 75%. Biopsy of the axillary node was positive for carcinoma. She has been referred to genetics. We discussed that it is reasonable to try to downstage the axilla with neoadjuvant chemo based on grade 3 and high Ki-67. We discussed possible side effects of ddACT and she agreed to proceed. She will get baseline labs, TTE and port. We also briefly discussed adjuvant treatment with AI and abemaciclib. Interval History C2 AC She reports some baseline tingling in her fingers that she attributes to carpal tunnel. This is thesame. She reports some sob with exertion. It resolves with rest. She reports pain in her R foot. She had imaging that confirmed arthritis. She reports some small itchy bumps on her legs bilaterally. She is using hydrocortisone cream with relief She denies any concerns with her appetite. We discussed dietary needs while on chemo. Glass Technician referral placed. She reports headaches when waking, resolve on their own. She reports new personal stress. Her stepson recently unexpectedly. She reports that she has a good support system. Patient denies any chest pressure or pain, headache, joint pain, changes in mouth sores, hot flashes, vaginal dryness, swelling, fever, rashes or other skin changes . Stylist Apprentice History: , , menarche at age 11, LMP in her early forties. Medical/Surgical History: Past Medical History: Diagnosis Date Anxiety Essential hypertension, benign Goiter Malignant neoplasm of overlapping sites of right breast in female, estrogen receptor positive 01/19/2024 IDC, ER+/VA+/HER2 equivocal Uterine fibroid Past Surgical History: Procedure Laterality Date INSERTION CVC TUNNELED W/ PORT PUMP Left 02/16/2024 Laterality: Left; Surgeon: Leonila An MD; [facility] U/S VASCULAR ACCESS PROCEDURES ADD-ON PX Left 02/16/2024 Laterality: Left; Surgeon: Leonila An MD; [facility]OP GUIDANCE FLUOROSCOPIC PLACEMENT REPLACEMENT REMOVAL OF CVAD ADD-ON PX Left 02/16/2024 Laterality: Left; Surgeon: Leonila An MD; [facility]IOP CORE BIOPSY OF THE BREAST Right 01/19/2024 Malignant neoplasm of overlapping sites of right breast in female, estrogen receptor positive SECTION 1988 SECTION 1987 SECTION 1983 CHOLECYSTECTOMY 1983 HYSTERECTOMY OOPHORECTOMY LAVERN AND BSO 40's Family/Social History: Her family history includes Breast Cancer (age of onset: 60 - 69) in her maternal cousin; Breast Cancer (age of onset: 76) in her maternal aunt; Cancer in her maternal uncle and maternal uncle; Cancer- Other in her brother and paternal grandmother; Cancer- Other (age of onset: 60) in her mother; Leukemia (age of onset: 60 - 69) in her maternal cousin. She reports that she has never smoked. She has never used smokeless tobacco. She reports current alcohol use of about 1.0 - 3.0 standard drink of alcohol per week. She reports that she does not use drugs. Medications/Allergies/Immunizations: Her current medication(s) include has a current medication list which includes the following prescription(s): Acetaminophen 325 MG tablet, CYCLOPHOSPHAMIDE IV, DOXORUBICIN HCL IV, ergocalciferol 1.25MG (08410 UT) capsule, hydroCHLOROthiazide 25 MG tablet, Ibuprofen 400 MG tablet, levothyroxine 50 MCG tablet, Lidocaine-prilocaine 2.5-2.5 % cream, magnesium oxide 400 MG tablet, OLANZapine 5 MG tablet, Prochlorperazine 10 MG tablet, and Zolpidem (Ambien) 5 MG tablet. Allergies: Metronidazole Review of Systems: General/Constitutional: positive for fatigue, Negative for fever, chills, recent weight gain or loss. HEENT: No visual disturbances. No hearing loss, tinnitus, sore throat, nosebleeds or rhinorrhea. Nodysphagia. Cardiovascular: Negative for palpitations, chest pain or dyspnea on exertion. Respiratory: Negative for chronic or productive cough, hemoptysis, or asthma. Gastrointestinal: Negative for abdominal pain, nausea, vomiting, diarrhea, constipation or changes in bowel habits. Genitourinary: Negative for dysuria or hematuria. No frequency, urgency, or hesitancy. Musculoskeletal: Negative for arthralgias, myalgias, or back pain. Neurological: Negative for dizziness, focal weakness or headaches. Psychiatric: Negative for depression, anxiety or mood disorders. Lymph/Heme: No history of hematologic malignancies or bleeding disorders. Endocrine: Negative for polyuria, polydipsia or hot/cold intolerance Skin: Negative for acute skin lesions. Physical Exam: Vitals: Vitals: 03/08/24 0928 BP: (!) 130/98 Pulse: 67 Resp: 18 Temp: 97.5 degrees F (36.4 degrees C) TempSrc: Oral SpO2: 97% Weight: 98 kg (216 lb) Smoking Status Never Patient's Current Performance Status 0 General/Constitutional: Well developed, well nourished female, No acute distress. HEENT: Head: Normocephalic and atraumatic. Sclerae are anicteric. Neck: Supple, non-tender, with nolymphadenopathy. Cardiac: Regular rate and rhythm. Normal S1, S2. No murmurs, rubs or gallops. Pulmonary/Chest: Lungs are clear to auscultation bilaterally. No wheezes, rhonchi or rales noted. Abdominal: Abdomen with normoactive bowel sounds in all four quadrants. Soft, non-tender, non-distended. Extremities: N No cyanosis or clubbing or peripheral edema. Neurological: Conscious, alert and oriented. No focal neurologic deficit. Skin: Skin is warm and dry. She is not diaphoretic. Psychiatric: Appropriate mood and affect. Breast exam: palpable mass in right breast at 3 position, palpable right axillary node, no skin changes. Impression and Recommendations: Right breast IDC, cT2N1, grade 3, ER > 95%, VA 32%, HER2 equivocal, FISH negative, Ki-67 75%. She has CT Scan C/A/P and bone scan scheduled on 02/12, ordered by surgery team. She has been referred to genetics. We discussed that it is reasonable to try to downstage the axilla with neoadjuvant chemo based on grade 3 and high Ki-67. We discussed possible side effects of ddACT and she agreed to proceed. We also briefly discussed adjuvant treatment with AI and abemaciclib. 03/08/2024 C2 AC Labs reviewed and appropriate for treatment today 02/14 Echo 60-65% 02/15 Port placed 02/20 MRI showed- internal mammary lymph node Her stepson recently unexpectedly. She reports that she has a good support system and sees a therapist. We discussed the importance of getting enough nutrition while on treatment. She is trying to still lose weight. Referral to proof tester placed. Orders Placed This Encounter CBC, EDIF, PLATELET CBC AND ELECTRONIC DIFF MANUAL DIFF AMB REFERRAL TO BENCH MOLDER APPRENTICE Return for 2w Bader, labs, C3 AC. ROME Farley * Joan Pinzon RN - 03/08/2024 10:00 AM EDT Patient offered a medical mechanical adjuster for sensitive exam. Pt declined * Joan Pinzon RN - 03/08/2024 10:00 AM EDT Clinic to Infusion Handoff Report S - Patient coming from Exam to Infusion for treatment B - Clinic Nurse reviewed the following: Allergies yes Medications yes Vital signs within treatment parameters yes Patient accessed yes A - Reviewed patient assessment and verified following: ECOG/Toxicity yes Ht/wt yes Labs within treatment parameters Yes If no, MD/PRADEEP notified. Ok to Treat order entered No If no, MD/PRADEEP notified. Treatment plans signed yes If no, MD/PRADEEP notified. Report called to R - Recommendations for plan of care: Describe any changes to plan of care: none Patient has AVS, completed check out, and discharged to infusion unit For questions, please call: Joan Pinzon RN documented in this encounterOS[facility] Instructions* Patient Instructions* Joan Pinzon RN - 03/08/2024 10:00 AM EDT Images from the original note were not included. When will my phone call be returned? Our providers will do their best to answer your call quickly. You should expect a returned call within 24 hours. If you have an emergency, please call 911 or go to your local emergency department. When will my Tuxebot message be returned? Our providers will do their best to answer your questions quickly. However, there are certain timeswhen you won t get a response. Our providers won t respond to messages on nights, weekends or holidays. Luqit messages are not for urgent issues, and you can expect a response within 3 business days. If you have an emergency, please call 911 or go to your local emergency department. A business day is Monday through Monday 8 a.m. to 4:30 p.m. When are my results released? Patients have access to most test results as soon as they are available. These results and notes could include sensitive information such as a cancer diagnosis. You always have the choice to wait to view your information in Tuxebot until you speak with your provider. When will my FMLA/Paperwork be returned? Please allow 7-10 business days for completion of FMLA/Paperwork to be returned. Patient Satisfaction Surveys: Your opinion matters! If you receive a patient satisfaction survey in the mail we would appreciate your thoughts. Please help us get better! Store controlled substances (for example - opioids/narcotics, certain stimulants, certain sedatives, etc.) in a locked cabinet or in an area only accessible to you. When you no longer need the controlled substances that have been prescribed for you, do NOT bring them to [facility]. We are NOT permitted under law to accept controlled substances from a patient for disposal. You may dispose of controlled substances, as well as other old or govv-tqk-uhqumox and prescription medications, by one of the safe methods listed below: A drug take-back program - this is the best method to dispose of medications safely. You can locatethe take-back program closest to you @ https://takebackday.[place].gov under the COLLECTION SITE LABORER PIPELINES tab. The [facility] of pharmacy homepage also has an RX Disposal Ground Products Director tool @https://www.pharmacy.[place].gov/Compliance/DrugDisposal. If you cannot locate a drug take-back program, never dispose of medications down the sink or toilet. Instead, place the medication in a sealable storage bag and mix with damp coffee grounds, dirt, orcat litter, then seal the bag, and dispose of in your regular trash. If you have or unused cancer medication or hazardous drugs (this does not include Tamoxifen, Anastrozole, Letrozole or Exemestane), these may be potentially donated to our [facility] repository drug program and then given to other patients who are uninsured or underinsured. Ask your [facility] pharmacist about this program. documented in this encounterMer[facility]-20[facility] History of Present illness Narrative* Zaria Cortes RN - 02/23/2024 10:[address] seen in Medical Oncology clinic today. Nursing documentation of today's clinic visitand ISBAR communication reviewed. Message sent to [facility] Infusion Scheduling Pool to schedule patient for future appointments. Arrivalmessage sent to pharmacy to release saline and premeds as indicated. * Sarah Prater RN - 02/23/2024 10:[address] seen in Medical Oncology clinic today. Nursing documentation of today's clinic visitreviewed. Message sent to [facility] Infusion Scheduling Pool to schedule patient for future appointments. Arrivalmessage sent to pharmacy to release saline and premeds as indicated. Milad Lane received AC - completed Cycle 1 Day 1. Patient to return for next treatment on 03/08/24. Patient's next appointment has been verified by RN. Patient tolerated well. documented in this encounterMer[facility]08-23-20[facility] History of Present illness Narrative* Joan Pinzon RN - 02/23/2024 9:40 AM EDT Patient offered a medical mechanical adjuster for sensitive exam. Pt declined Clinic to Infusion Handoff Report S - Patient coming from Exam to Infusion for treatment B - Clinic Nurse reviewed the following: Allergies yes Medications yes Vital signs within treatment parameters yes Patient accessed yes A - Reviewed patient assessment and verified following: ECOG/Toxicity yes Ht/wt yes Labs within treatment parameters Yes If no, MD/PRADEEP notified. Ok to Treat order entered No If no, MD/PRADEEP notified. Treatment plans signed yes If no, MD/PRADEEP notified. Report called to R - Recommendations for plan of care: Describe any changes to plan of care: none Patient has AVS, completed check out, and discharged to infusion unit For questions, please call: Joan Pinzon RN * Wayne López, COUNTY HOME DEMONSTRATION AGENT-SERVICE ADMINISTRATOR - 02/23/2024 9:40 AM EDT History of Present Illness: Milad Lane presented to our clinic for breast cancer. She felt a mass in her right breast in January 2024. Bilateral diagnostic mammogram and right breast ultrasound showed 1.9x2.2x1.7 cm mass in right breast at 3 position along with 2.4x1.2x1.5 cm abnormal right axillary node. Biopsy of the mass showed IDC, grade 3, ER > 95%, VA 32%, HER2 equivocal, FISH negative, Ki-67 75%. Biopsy of the axillary node was positive for carcinoma. She has been referred to genetics. We discussed that it is reasonable to try to downstage the axilla with neoadjuvant chemo based on grade 3 and high Ki-67. We discussed possible side effects of ddACT and she agreed to proceed. She will get baseline labs, TTE and port. We also briefly discussed adjuvant treatment with AI and abemaciclib. Interval History C1 AC She reports some baseline tingling in her fingers that she attributes to carpal tunnel. Patient denies any sob, chest pressure or pain, headache, joint pain, changes in bowel habits including constipation and diarrhea, changes in appetite, N/V, unintentional weight loss, mouth sores, hot flashes, vaginal dryness, swelling, fever, rashes or other skin changes . Stylist Apprentice History: , , menarche at age 11, LMP in her early forties. Medical/Surgical History: Past Medical History: Diagnosis Date Anxiety Essential hypertension, benign Goiter Malignant neoplasm of overlapping sites of right breast in female, estrogen receptor positive 01/19/2024 IDC, ER+/VA+/HER2 equivocal Uterine fibroid Past Surgical History: Procedure Laterality Date INSERTION CVC TUNNELED W/ PORT PUMP Left 02/16/2024 Laterality: Left; Surgeon: Leonila An MD; [facility] U/S VASCULAR ACCESS PROCEDURES ADD-ON PX Left 02/16/2024 Laterality: Left; Surgeon: Leonila An MD; [facility] GUIDANCE FLUOROSCOPIC PLACEMENT REPLACEMENT REMOVAL OF CVAD ADD-ON PX Left 02/16/2024 Laterality: Left; Surgeon: Leonila An MD; [facility] CORE BIOPSY OF THE BREAST Right 01/19/2024 Malignant neoplasm of overlapping sites of right breast in female, estrogen receptor positive SECTION 1988 SECTION 1987 SECTION 1983 CHOLECYSTECTOMY 1983 HYSTERECTOMY OOPHORECTOMY LAVERN AND BSO 40's Family/Social History: Her family history includes Breast Cancer (age of onset: 60 - 69) in her maternal cousin; Breast Cancer (age of onset: 76) in her maternal aunt; Cancer in her maternal uncle and maternal uncle; Cancer- Other in her brother and paternal grandmother; Cancer- Other (age of onset: 60) in her mother; Leukemia (age of onset: 60 - 69) in her maternal cousin. She reports that she has never smoked. She has never used smokeless tobacco. She reports current alcohol use of about 1.0 - 3.0 standard drink of alcohol per week. She reports that she does not use drugs. Medications/Allergies/Immunizations: Her current medication(s) include has a current medication list which includes the following prescription(s): Acetaminophen 325 MG tablet, ergocalciferol 1.25 MG (87000 UT) capsule, hydroCHLOROthiazide 25 MG tablet, Ibuprofen 400 MG tablet, levothyroxine 50 MCG tablet, Lidocaine-prilocaine 2.5-2.5 % cream, magnesium oxide 400 MG tablet, OLANZapine 5 MG tablet, Prochlorperazine 10 MG tablet, and Zolpidem (Ambien) 5 MG tablet. Allergies: Metronidazole Review of Systems: General/Constitutional: positive for fatigue, Negative for fever, chills, recent weight gain or loss. HEENT: No visual disturbances. No hearing loss, tinnitus, sore throat, nosebleeds or rhinorrhea. Nodysphagia. Cardiovascular: Negative for palpitations, chest pain or dyspnea on exertion. Respiratory: Negative for chronic or productive cough, hemoptysis, or asthma. Gastrointestinal: Negative for abdominal pain, nausea, vomiting, diarrhea, constipation or changes in bowel habits. Genitourinary: Negative for dysuria or hematuria. No frequency, urgency, or hesitancy. Musculoskeletal: Negative for arthralgias, myalgias, or back pain. Neurological: Negative for dizziness, focal weakness or headaches. Psychiatric: Negative for depression, anxiety or mood disorders. Lymph/Heme: No history of hematologic malignancies or bleeding disorders. Endocrine: Negative for polyuria, polydipsia or hot/cold intolerance Skin: Negative for acute skin lesions. Physical Exam: Vitals: Smoking Status Never Patient's Current Performance Status 0 General/Constitutional: Well developed, well nourished female, No acute distress. HEENT: Head: Normocephalic and atraumatic. Sclerae are anicteric. Neck: Supple, non-tender, with nolymphadenopathy. Cardiac: Regular rate and rhythm. Normal S1, S2. No murmurs, rubs or gallops. Pulmonary/Chest: Lungs are clear to auscultation bilaterally. No wheezes, rhonchi or rales noted. Abdominal: Abdomen with normoactive bowel sounds in all four quadrants. Soft, non-tender, non-distended. Extremities: N No cyanosis or clubbing or peripheral edema. Neurological: Conscious, alert and oriented. No focal neurologic deficit. Skin: Skin is warm and dry. She is not diaphoretic. Psychiatric: Appropriate mood and affect. Breast exam: palpable mass in right breast at 3 position measuring around 3x2 cm, palpable right axillary node, no skin changes. Impression and Recommendations: Right breast IDC, cT2N1, grade 3, ER > 95%, VA 32%, HER2 equivocal, FISH negative, Ki-67 75%. She has CT Scan C/A/P and bone scan scheduled on 02/12, ordered by surgery team. She has been referred to genetics. We discussed that it is reasonable to try to downstage the axilla with neoadjuvant chemo based on grade 3 and high Ki-67. We discussed possible side effects of ddACT and she agreed to proceed. We also briefly discussed adjuvant treatment with AI and abemaciclib. 02/23/2024 C1 AC Labs reviewed and appropriate for treatment today 02/14 Echo 60-65% 02/15 Port placed 02/20 MRI showed- internal mammary lymph node Orders Placed This Encounter CBC, EDIF, PLATELET CMPN WITHOUT GLUCOSE GLUCOSE CBC AND ELECTRONIC DIFF Return for 2w Maribel, labs, C2 AC. ROME Farley documented in this encounterMercy [facility]08-23-2024 Instructions* Patient Instructions* Joan Pinzon RN - 02/23/2024 9:40 AM EDT Images from the original note were not included. When will my phone call be returned? Our providers will do their best to answer your call quickly. You should expect a returned call within 24 hours. If you have an emergency, please call 911 or go to your local emergency department. When will my Luqit message be returned? Our providers will do their best to answer your questions quickly. However, there are certain timeswhen you won t get a response. Our providers won t respond to messages on nights, weekends or holidays. Luqit messages are not for urgent issues, and you can expect a response within 3 business days. If you have an emergency, please call 911 or go to your local emergency department. A business day is Monday through Monday 8 a.m. to 4:30 p.m. When are my results released? Patients have access to most test results as soon as they are available. These results and notes could include sensitive information such as a cancer diagnosis. You always have the choice to wait to view your information in MyChart until you speak with your provider. When will my FMLA/Paperwork be returned? Please allow 7-10 business days for completion of FMLA/Paperwork to be returned. Patient Satisfaction Surveys: Your opinion matters! If you receive a patient satisfaction survey in the mail we would appreciate your thoughts. Please help us get better! Store controlled substances (for example - opioids/narcotics, certain stimulants, certain sedatives, etc.) in a locked cabinet or in an area only accessible to you. When you no longer need the controlled substances that have been prescribed for you, do NOT bring them to [facility]. We are NOT permitted under law to accept controlled substances from a patient for disposal. You may dispose of controlled substances, as well as other old or xiky-nne-apcjxrr and prescription medications, by one of the safe methods listed below: A drug take-back program - this is the best method to dispose of medications safely. You can locatethe take-back program closest to you @ https://takebackday.[facility].gov under the COLLECTION SITE [employer]ORER PIPELINES tab. The [facility] Board of pharmacy homepage also has an RX Disposal Ground Products Director tool @https://www.pharmacy.[place].gov/Compliance/DrugDisposal. If you cannot locate a drug take-back program, never dispose of medications down the sink or toilet. Instead, place the medication in a sealable storage bag and mix with damp coffee grounds, dirt, orcat litter, then seal the bag, and dispose of in your regular trash. If you have or unused cancer medication or hazardous drugs (this does not include Tamoxifen, Anastrozole, Letrozole or Exemestane), these may be potentially donated to our [facility] repository drug program and then given to other patients who are uninsured or underinsured. Ask your [facility] pharmacist about this program. documented in this [facility] History of Present illness Narrative* Joan Kirk - 02/21/2024 4:20 PM EDT Second technologist present for imaging. No need for medical mechanical adjuster. documented in this encounterOS[facility] History of Present illness Narrative* Jenise An - 02/21/2024 2:30 PM EDT DISPENSED & BILLED MED MUTUAL- EST MARY SORTO $500 ORDERED- LAKESHIA REYNAGAKIKA PHILIPPE BRN Didn't have Maryana, IN HOLD- JR documented in this encounterOSAvita Health System08-21-2024 NoteEXAM: US CLIP PLACEMENT FOR MAMMOGRAPHY, 02/21/2024 10:07 AM PRE-PROCEDURE DIAGNOSIS: Biopsy-proven metastatic right-sided IDC to the right axilla. This is performed to have a hydromark clip in the axilla POST-PROCEDURE DIAGNOSIS: Biopsy-proven metastatic right-sided IDC to the right axilla PERFORMING PHYSICIAN: Diane South DO TAPPER HELPER: Alanna Chilel M.D. COMPARISON: February 05, 2024 FINDINGS: Consent: Following a thorough discussion of the risks, benefits and alternatives of the procedure written informed consent was obtained. Time out was performed. Position: The patient was placed in a supine position on the US table and a preliminary scan was obtained. The abnormality again identified in the right axilla. Preparation: The patient's skin was cleansed, and the skin and subcutaneous tissues anesthetized with 1% lidocaine solution. Procedure: The hydromark dragonfly was positioned into the site. The clip introducer was removed and handheld pressure was applied. The estimated blood loss is none. The patient tolerated the procedure well without evidence of immediate complications. [id number] History of Present illness Narrative* Shaneka Sim - 02/21/2024 10:00 AM EDT Completed a Right axillary ultrasound guided clip placement only. Patient tolerated procedure well.Bandage was applied to site. documented in this [facility] Procedure note* Diane South DO - 02/21/2024 10:00 AM EDTAssociated Order(s): GENERAL PROCEDURE History and Physical Update: The H&P completed on 02/15/24 was reviewed and patient was assessed. No changes were noted. Diane South DO, 02/21/2024, 9:55 AM. Procedures [facility] Work Phone: 1(101) 640-548808-21-2024 Procedure note* Diane South DO - 02/21/2024 10:00 AM EDTAssociated Order(s): GENERAL PROCEDURE History and Physical Update: The H&P completed on 02/15/24 was reviewed and patient was assessed. No changes were noted. Diane South DO, 02/21/2024, 9:55 AM. Procedures documented in this encounterOSAvita Health System08-19-2024 Telephone encounter Note* Telephone Encounter - Linnea Orellana RN - 02/19/2024 8:45 AM EDT Both [employer] paperwork and Letter sent to patient via email. [facility]08-19-2024 Miscellaneous Notes* Telephone Encounter - Linnea Orellana RN - 02/19/2024 8:45 AM EDT Both [employer] paperwork and Letter sent to patient via email. * Telephone Encounter - Linnea Orellaan RN - 02/16/2024 4:29 PM EDT [employer] paperwork completed for patient. Signed by Dr. Joseph. Sent to patient via [employer]. Original in team folder, copy placed in AYESHA and copy printed for patient. documented in this encounterOSU [facility]08-19-2024 Note* Addendum Note - ROME Farley - 02/19/2024 8:21 AM EDTAddended by: WAYNE LÓPEZ on: 02/19/2024 08:21 AM Modules accepted: Orders [facility]08[facility]24 Miscellaneous Notes* Addendum Note - ROME Farley - 02/19/2024 8:21 AM EDTAddended by: WAYNE LÓPEZ on: 02/19/2024 08:21 AM Modules accepted: Orders * Addendum Note - ROME Farley - 02/16/2024 9:21 AM EDTAddended by: WAYNE LÓPEZ on: 02/16/2024 09:21 AM Modules accepted: Orders * Telephone Encounter - Linnea Orellana RN - 02/15/2024 4:36 PM EDT Chemo Class Education Visit Attendees: Milad and Roly (spouse) Chemotherapy class education provided via in person (insert either in-person visit or telephone call) Vital signs and Allergies Complete and Reviewed: No Chemo Regimen Reviewed: AC-T TYPE Education Slides Reviewed:Yes Tour of Infusion Complete: Yes Time Spent: 1 hour All Questions Answered: Yes Concerns for Follow Up: EMLA cream, wig, and Hope's referral documented in this encounterOS[facility]08-16-2024 Telephone encounter Note* Telephone Encounter - Linnea Orellana RN - 02/16/2024 4:29 PM EDT [employer] paperwork completed for patient. Signed by Dr. Joseph. Sent to patient via [employer]. Original in team folder, copy placed in AYESHA and copy printed for patient. [facility]08-16-2024 Nurse Note* Nursing Notes - Ida Fung RN - 02/16/2024 10:42 AM EDT 1042 : [facility]. Vital signs taken and stable. Patient given drink and snacks. Family called to bedside. Patient assessed. 1100 : Patient and family member given copy of AVS, all prescriptions, and supplies. Patient and family member present for discharge teaching. All questions answered at this time. 1107 : IV removed per policy. 1117 : Patient meets ASU discharge criteria and discharged per MD order to home. Patient taken by wheelchair by ZAIDA Louie to awaiting car. All belongings gathered with patient. Family/friend to drive patient home and care for patient 24 hours post-op. [facility]08-16-2024 Miscellaneous Notes* Nursing Notes - Ida Fung RN - 02/16/2024 10:42 AM EDT 1042 : [facility]. Vital signs taken and stable. Patient given drink and snacks. Family called to bedside. Patient assessed. 1100 : Patient and family member given copy of AVS, all prescriptions, and supplies. Patient and family member present for discharge teaching. All questions answered at this time. 1107 : IV removed per policy. 1117 : Patient meets ASU discharge criteria and discharged per MD order to home. Patient taken by wheelchair by ZAIDA Louie to awaiting car. All belongings gathered with patient. Family/friend to drive patient home and care for patient 24 hours post-op. * Op Note - Leonila An MD - 02/16/2024 9:54 AM EDT Name: Milad Lane ([id number]) Pre-Operative Diagnosis: Malignant neoplasm of overlapping sites of right breast in female, estrogen receptor positive [C50.811, Z17.0] Post-Operative Diagnosis: Malignant neoplasm of overlapping sites of right breast in female, estrogen receptor positive [C50.811, Z17.0] Procedure(s) Performed: Left internal jugular single lumen power port placement with fluoroscopy and US guidance Attending Surgeon(s): Surgeons and Role: * Leonila An MD - Primary Anesthesiologist: Anesthesiologist: Braulio Haddad MD NUT THREADER: FIFI Rios Surgical Staff: Ski Patrol Director: Macy Loza RN Nurse Practitioner: ROME Luna Physician Header Boss: Autumn Gardner PA-C Relief Ski Patrol Director: Jad Tapia RN Relief Scrub: Laura Barroso RN Scrub Person: Marisela Gordon Estimated Blood Loss: Minimal Implant: Implant Name Type Inv. Item Serial No. Laundry Sorter Lot No. LRB No. Used Action PORT POWERPORT SLIM CLEARVUE AIRGUARD 6FR 1 LUMEN LOW - [id number] PORT POWERPORT SLIM CLEARVUE AIRGUARD 6FR 1 LUMEN LOW BARD PERIPHERAL VASCULAR [id number] Left 1 Implanted Drains: None Intra-Operative Findings: No abnormal findings Indications: Milad Lane is a 58 y.o. female that was diagnosed with right breast cancer. Given the need for central venous access the risks and benefits of port placement were discussed with the patient. After discussion the patient elected to proceed and informed written consent was obtained. Narrative: The patient was taken to the operating room and placed in supine position. Anesthesia was induced without complication. The neck and chest were prepped and draped in normal sterile fashion. A timeoutfor patient safety was performed. The left IJ was identified with the ultrasound and was accessed under US guidance with return of venous blood. The wire was placed through the needle using the Seldinger technique. Placement in the SVC was confirmed with fluoroscopy. The chest and neck were then anesthetized with a mixture of 1% Lid ocaine with epi and 0.25% Marcaine plain. A subcutaneous pocket for the port was created; this was performed by dividing the skin and subcutaneous tissues. We then made a small knick in the skin at the site of IJ access in the neck. The catheter was then tunneled through the neck to the site of venous access. The port was placed in the pocket. The catheter was measured and cut to length. The dilator and sheath were then passed over the wire using the Seldinger technique under direct fluoroscopic guidance. The wire and dilator were removed. The catheter was placed through the sheath. The sheath was broken free and removed. The port was then accessed with the Nielson needle. There was easy return of venous blood and easy forward flush with Heparinized saline. A final fluoroscopic image was taken confirming port position. The port was then secured in place in the subcutaneous pocket with 2-0PDS. The skin was closed with interrupted deep dermal sutures of 3-0 Vicryl followed by a running subcuticular stitch of 4-0 Monocryl. Dermabond was applied as a dressing. The patient tolerated the procedure well, without complication. All counts were correct at the end of the case. CXR to be done in PACU was ordered. Autumn Gardner PA-C was the trust manager assistant on this case as no other qualified resident was available. The paraprofessional education assistant provided exposure, retraction, hemostasis, dissection, and expedited the woundclosure. It was not possible to perform this procedure without assistance because the attending surgeon would be unable to adequately and safely visualize the surgical site for dissection, obtain hemostasis, and complete all the necessary steps of the procedure without significantly increasing the time required to complete it and the risk of complications. Leonila An MD Surgical Oncology February 16, 2024 9:54 AM * Brief Op Note - Leonila An MD - 02/16/2024 9:51 AM EDT Milad Ariana ([id number]) PRE OPERATIVE DIAGNOSIS Malignant neoplasm of overlapping sites of right breast in female, estrogen receptor positive [C50.811, Z17.0] POST OPERATIVE DIAGNOSIS Malignant neoplasm of overlapping sites of right breast in female, estrogen receptor positive [C50.811, Z17.0] PROCEDURE PERFORMED Procedure(s) (LRB): INSERTION CVC TUNNELED W/ PORT PUMP (Left) GUIDANCE U/S VASCULAR ACCESS PROCEDURES ADD-ON PX (Left) GUIDANCE FLUOROSCOPIC PLACEMENT REPLACEMENT REMOVAL OF CVAD ADD-ON PX (Left) PRIMARY CLOSURE Yes INTRAOPERATIVE FINDINGS No significant abnormalities SURGEON Surgeons and Role: * Leonila An MD - Primary ANESTHESIOLOGIST Anesthesiologist: Braulio Haddad MD NUT THREADER: Chiara Durbin, COUNTY HOME DEMONSTRATION AGENT-NUT THREADER SURGICAL STAFF Ski Patrol Director: Macy Loza RN Nurse Practitioner: Neelam Kunz APRN-EMERALD Physician Header Boss: Autumn Gardner PA-C Relief Ski Patrol Director: Jad Tapia RN Relief Scrub: Laura Barroso RN Scrub Person: Marisela Leyva COMPLICATIONS None ESTIMATED BLOOD LOSS Minimal SPECIMENS No specimen sent * No specimens in log * Implant Name Type Inv. Item Serial No. Laundry Sorter Lot No. LRB No. Used Action PORT POWERPORT SLIM CLEARVUE AIRGUARD 6FR 1 LUMEN LOW - [id number] PORT POWERPORT SLIM CLEARVUE AIRGUARD 6FR 1 LUMEN LOW BARD PERIPHERAL VASCULAR [id number] Left 1 Implanted Leonila An MD February 16, 2024 9:57 AM documented in this [facility]08-16-2024 Hospital Discharge instructions* Discharge Instructions* Autumn Gardner PA-C - 02/16/2024 10:03 AM EDT Do not shower for 48 hours. Do not perform any vigorous activity or heavy exercise for 2 weeks. Do not submerge in water for 2 weeks. You should SCHEDULE taking Tylenol and Ibuprofen alternately every 4 hours around the clock for thefirst 3 to 5 days following surgery. Prescription pain medication can be used NEEDED for moderate to severe pain. Do not take them at the same time. Acetaminophen 975 mg by mouth should be taken every 8 hours alternating with doses of Ibuprofen 400 mg by mouth every 8 hours. Ibuprofen is easier to take on a full stomach. Here is an example of a schedule: 8:00 am: Take Ibuprofen 400 mg by mouth 12:00 pm: Take Acetaminophen 975 mg by mouth 4:00 pm: Take Ibuprofen 400 mg by mouth 8:00 pm: Take Acetaminophen 975 mg by mouth 12:00 am: Take Ibuprofen 400 mg by mouth (if you are unable to sleep or concerned you will wake up in pain) Notes: Do not take more than 3,000 mg of Acetaminophen in 24 hours. Opioid medications are taken ONLY if the Acetaminophen and Ibuprofen are not controlling your pain. * Attachments The following attachments cannot be sent through Care Everywhere. * Port: Implanted: Post-op (Nigerien) documented in this encounterOSU [facility]08-16-[facility] Surgery Postoperative evaluation and management note* Op Note - Leonila An MD - 02/16/2024 9:54 AM EDT Name: Milad Lane ([id number]) Pre-Operative Diagnosis: Malignant neoplasm of overlapping sites of right breast in female, estrogen receptor positive [C50.811, Z17.0] Post-Operative Diagnosis: Malignant neoplasm of overlapping sites of right breast in female, estrogen receptor positive [C50.811, Z17.0] Procedure(s) Performed: Left internal jugular single lumen power port placement with fluoroscopy and US guidance Attending Surgeon(s): Surgeons and Role: * Leonila An MD - Primary Anesthesiologist: Anesthesiologist: Braulio Haddad MD NUT THREADER: Chiara Durbin APRN-LUCILA Surgical Staff: Ski Patrol Director: Macy Loza RN Nurse Practitioner: Neelam Kunz APRN-SERVICE ADMINISTRATOR Physician Header Boss: Autumn Gardner PA-C Relief Ski Patrol Director: Jad Tapia RN Relief Scrub: Laura Barroso RN Scrub Person: Marisela Leyva Estimated Blood Loss: Minimal Implant: Implant Name Type Inv. Item Serial No. Laundry Sorter Lot No. LRB No. Used Action PORT POWERPORT SLIM CLEARVUE AIRGUARD 6FR 1 LUMEN LOW - [id number] PORT POWERPORT SLIM CLEARVUE AIRGUARD 6FR 1 LUMEN LOW BARD PERIPHERAL VASCULAR [id number] Left 1 Implanted Drains: None Intra-Operative Findings: No abnormal findings Indications: Milad Lane is a 58 y.o. female that was diagnosed with right breast cancer. Given the need for central venous access the risks and benefits of port placement were discussed with the patient. After discussion the patient elected to proceed and informed written consent was obtained. Narrative: The patient was taken to the operating room and placed in supine position. Anesthesia was induced without complication. The neck and chest were prepped and draped in normal sterile fashion. A timeoutfor patient safety was performed. The left IJ was identified with the ultrasound and was accessed under US guidance with return of venous blood. The wire was placed through the needle using the Seldinger technique. Placement in the SVC was confirmed with fluoroscopy. The chest and neck were then anesthetized with a mixture of 1% Lid ocaine with epi and 0.25% Marcaine plain. A subcutaneous pocket for the port was created; this was performed by dividing the skin and subcutaneous tissues. We then made a small knick in the skin at the site of IJ access in the neck. The catheter was then tunneled through the neck to the site of venous access. The port was placed in the pocket. The catheter was measured and cut to length. The dilator and sheath were then passed over the wire using the Seldinger technique under direct fluoroscopic guidance. The wire and dilator were removed. The catheter was placed through the sheath. The sheath was broken free and removed. The port was then accessed with the Nielson needle. There was easy return of venous blood and easy forward flush with Heparinized saline. A final fluoroscopic image was taken confirming port position. The port was then secured in place in the subcutaneous pocket with 2-0PDS. The skin was closed with interrupted deep dermal sutures of 3-0 Vicryl followed by a running subcuticular stitch of 4-0 Monocryl. Dermabond was applied as a dressing. The patient tolerated the procedure well, without complication. All counts were correct at the end of the case. CXR to be done in PACU was ordered. Autumn Gardner PA-C was the trust manager assistant on this case as no other qualified resident was available. The paraprofessional education assistant provided exposure, retraction, hemostasis, dissection, and expedited the woundclosure. It was not possible to perform this procedure without assistance because the attending surgeon would be unable to adequately and safely visualize the surgical site for dissection, obtain hemostasis, and complete all the necessary steps of the procedure without significantly increasing the time required to complete it and the risk of complications. Leonila An MD Surgical Oncology February 16, 2024 9:[address] [facility] Work Phone: 1(362) 741-326908-16-2024 Surgery Postoperative evaluation and management note* Brief Op Note - Leonila An MD - 02/16/2024 9:[address] ([id number]) PRE OPERATIVE DIAGNOSIS Malignant neoplasm of overlapping sites of right breast in female, estrogen receptor positive [C50.811, Z17.0] POST OPERATIVE DIAGNOSIS Malignant neoplasm of overlapping sites of right breast in female, estrogen receptor positive [C50.811, Z17.0] PROCEDURE PERFORMED Procedure(s) (LRB): INSERTION CVC TUNNELED W/ PORT PUMP (Left) GUIDANCE U/S VASCULAR ACCESS PROCEDURES ADD-ON PX (Left) GUIDANCE FLUOROSCOPIC PLACEMENT REPLACEMENT REMOVAL OF CVAD ADD-ON PX (Left) PRIMARY CLOSURE Yes INTRAOPERATIVE FINDINGS No significant abnormalities SURGEON Surgeons and Role: * Leonila An MD - Primary ANESTHESIOLOGIST Anesthesiologist: Braulio Haddad MD NUT THREADER: Chiara Durbin APRN-NUT THREADER SURGICAL STAFF Ski Patrol Director: Macy Loza RN Nurse Practitioner: Neelam Kunz APRN-EMERALD Physician Header Boss: Autumn Gardner PA-C Relief Ski Patrol Director: Jad Tapia RN Relief Scrub: Laura Barroso RN Scrub Person: Marisela Leyva COMPLICATIONS None ESTIMATED BLOOD LOSS Minimal SPECIMENS No specimen sent * No specimens in log * Implant Name Type Inv. Item Serial No. Laundry Sorter Lot No. LRB No. Used Action PORT POWERPORT SLIM CLEARVUE AIRGUARD 6FR 1 LUMEN LOW - [id number] PORT POWERPORT SLIM CLEARVUE AIRGUARD 6FR 1 LUMEN LOW BARD PERIPHERAL VASCULAR [id number] Left 1 Implanted Leonila An MD February 16, 2024 9:[address] [facility]08-16-2024 Nurse Surgical operation note* Macy Loza RN - 02/16/2024 9:28 AM EDT Family notified of procedure start @ [address] [facility]08-16-2024 Nurse Note* Macy Loza RN - 02/16/2024 9:28 AM EDT Family notified of procedure start @ 0918 * Casie Napier RN - 02/16/2024 7:29 AM EDT Pt denies history of chemo and radiation. Pt denies metal or foreign objects in body. Denies history of seizures. documented in this encounterOSAv[facility]08-16-2024 Note* Addendum Note - ROME Farley - 02/16/2024 9:21 AM EDTAddended by: WAYNE LÓPEZ on: 02/16/2024 09:21 AM Modules accepted: Orders [facility] Work Phone: 1(469) 430-805608-16-2024 Note* Addendum Note - ROME Farley - 02/16/2024 9:21 AM EDTAddended by: WAYNE LÓPEZ on: 02/16/2024 09:21 AM Modules accepted: Orders [facility]08-16-2024 Miscellaneous Notes* Addendum Note - ROME Farley - 02/16/2024 9:21 AM EDTAddended by: WAYNE LÓPEZ on: 02/16/2024 09:21 AM Modules accepted: Orders * Telephone Encounter - Linnea Orellana RN - 02/15/2024 4:36 PM EDT Chemo Class Education Visit Attendees: Kirstin (spouse) Chemotherapy class education provided via in person (insert either in-person visit or telephone call) Vital signs and Allergies Complete and Reviewed: No Chemo Regimen Reviewed: AC-T TYPE Education Slides Reviewed:Yes Tour of Infusion Complete: Yes Time Spent: 1 hour All Questions Answered: Yes Concerns for Follow Up: EMLA cream, wig, and Hope's referral documented in this encounterMer[facility] History and physical note* ROME Wallace - 02/16/2024 7:36 AM EDTSummary: Interval H&P PERIOPERATIVE SURGICAL HISTORY AND PHYSICAL UPDATE Pre-op Diagnoses: Malignant neoplasm of overlapping sites of right breast in female, estrogen receptor positive [C50.811, Z17.0] Procedure(s): INSERTION CVC TUNNELED W/ PORT PUMP Surgeon(s): Surgeons and Role: * Leonila An MD - Primary History and Physical Update: Blood pressure 139/76, pulse 66, temperature 97.8 F (36.6 C), temperature source Oral, resp. rate 16, height 1.651 m (5' 5), weight 98 kg (216 lb), SpO2 99%. I have reviewed Milad Lane's medical, surgical and other pertinent history, and I have updated the medication and allergy information in the computerized patient record. I have examined the patient, reviewed the previous H&P completed on date (02/05/2024) and thereare no changes. Pt has no new complaints today and denies F/C, CP/SOB, N/V/D or trips to urgent care/ED since last being seen. Today's surgical history and physical update was completed by ROME Wallace, 02/16/2024, 7:[address] [facility] Work Phone: [phone] History and physical note* ROME Wallace - 02/16/2024 7:36 AM EDTSummary: Interval H&P PERIOPERATIVE SURGICAL HISTORY AND PHYSICAL UPDATE Pre-op Diagnoses: Malignant neoplasm of overlapping sites of right breast in female, estrogen receptor positive [C50.811, Z17.0] Procedure(s): INSERTION CVC TUNNELED W/ PORT PUMP Surgeon(s): Surgeons and Role: * Leonila An MD - Primary History and Physical Update: Blood pressure 139/76, pulse 66, temperature 97.8 F (36.6 C), temperature source Oral, resp. rate 16, height 1.651 m (5' 5), weight 98 kg (216 lb), SpO2 99%. I have reviewed Milad Lane's medical, surgical and other pertinent history, and I have updated the medication and allergy information in the computerized patient record. I have examined the patient, reviewed the previous H&P completed on date (02/05/2024) and thereare no changes. Pt has no new complaints today and denies F/C, CP/SOB, N/V/D or trips to urgent care/ED since last being seen. Today's surgical history and physical update was completed by ROME Wallace, 02/16/2024, 7:37 AM. documented in this [facility]OS[facility] Nurse Surgical operation note* Casie Napier RN - 02/16/2024 7:29 AM EDT Pt denies history of chemo and radiation. Pt denies metal or foreign objects in body. Denies history of seizures. [facility]08-15-2024 Telephone encounter Note* Telephone Encounter - Linnea Orellana RN - 02/15/2024 4:36 PM EDT Chemo Class Education Visit Attendees: Kirstin (spouse) Chemotherapy class education provided via in person (insert either in-person visit or telephone call) Vital signs and Allergies Complete and Reviewed: No Chemo Regimen Reviewed: AC-T TYPE Education Slides Reviewed:Yes Tour of Infusion Complete: Yes Time Spent: 1 hour All Questions Answered: Yes Concerns for Follow Up: EMLA cream, wig, and Hope's referral [facility]08-15-2024 History of Present illness Narrative* Chiara Martinez Himasunni, COUNTY HOME DEMONSTRATION AGENT-SERVICE ADMINISTRATOR - 02/15/2024 1:30 PM EDT RADIATION ONCOLOGY NEW PATIENT VISIT Referring Physician: Self, Self Patient Name: Milad Lane Provider: Taisha Gonzales MD Surgical Oncologist: Dr. An Medical Oncologist: Dr. Joseph Plastic Surgeon: : 1965 Date: 02/15/2024 Reason for visit: Milad Lane is a 58 y.o. 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 She is s/p right breast and right axilla lymph node biopsy on 01/23/24. Anatomic Stage IIB / ClinicalPrognostic Stage IIB, [id number](pending MRI of abdomen). She presents today as a new patient for evalu ation and discussion of treatment recommendations. History of Present Illness: December 2023, patient self palpated a right breast 01/12/24: Screening Mammogram 01/19/24: Right Breast Diagnostic Mammogram and US. 2.2 cm x 1.9 cm x 1.7 cm hypoechoic irregular nodule with posterior shadowing at the 3:00 position of the breast and 2.4 cm x 1.5 cm x 1.2 cm irregular appearing lymph node in the right axilla 01/19/24: Right breast and axilla lymph node biopsy. + IDC of right breast with metastatic disease to lymph node. 02/05/24: Consult with surg/onc, Dr. An 02/08/24: Consult with plastics, Dr. Morales, patient reports she is leaning toward a bilateral mastectomy with delayed reconstruction 02/09/24: Consult with med/onc, Dr. Joseph. Plan for ddACT 02/13/24: Staging Scans with CT Chest, CT Abdomen/Pelvis, and Bone Scan 4.7 cm liver lesion, likely a hemangioma, but MRI could be considered for confirmation. Discussed at tumor board, recommendation for up-front chemotherapy in an effort to deescalate surgery in the axilla. Upcomin02/16/24: Port placement 02/21/24: To begin neoadjuvant chemotherapy with Dr. Joseph. Plan for ddACT 02/25/24: MRI of abdomen to further evaluate liver lesion Pt presents with her , Roly. She is doing fairly well overall. Her PMH includes nothing significant. Her PSH includes LAVERN-BSO. She is a former smoker. She denies alcohol and drug use. She began menses at 11. She is , with first at age 18. She went through menopause at age in her 39 with LAVERN-BSO. She denies HRT. She has family hx of breast in m aunt and cousin, denies ovarian, or uterine cancer. She has not undergone genetic workup. She denies Pacemaker/ICD. She has medication allergies. She has a current medication list which includes the following prescription(s): ashwagandha, ergocalciferol, HERBAL PRODUCT, hydrochlorothiazide, levothyroxine, magnesium oxide, turmeric, and zolpidem.. She has a current medication list which includes the following long-term medication(s): ergocalciferol, hydrochlorothiazide, magnesium oxide, and zolpidem. . She lives in [place], with her . Clinical Trial: Not eligible for radiation oncology clinical trials at this time ROS: A full ROS was queried and is negative other than HPI and RN note. RN note and history reviewed with the patient. Radiation History: History of prior radiation: no History of auto-immune disease: no History of connective tissue disorder: no Pacemaker: no Able to lay flat: yes Tolerates prone position: yes Transportation available: yes Performance Status: Performance status: Karnofsky scale 90 (ECOG grade 0) Performs normal activity with minor effort Physical Exam: Vital Signs: Smoking Status Never General/Constitutional: Well developed, well nourished female, who looks her stated age of 58 y.o..No acute distress. HEENT: Head: Normocephalic and atraumatic. Moist mucus membranes. Eyes: Sclerae are anicteric. Neck: Supple, with no lymphadenopathy.. Pulmonary/Chest: Normal respiratory effort. . Breasts: pt examined in supine and sitting positions. Left breast normal size and contour with normal NAC. Right breast with palpable mass noted to lower inner quadrant, normal NAC. Right axilla withpalpable lymphadenopathy Neurological: Conscious, alert and oriented. No focal neurologic deficit. Skin: Skin is warm and dry. Flush, pallor and rash absent. Abdomen: Non-distended. Extremities: Normal range of motion in all four extremities. Pathology/Lab Results: All pertinent lab and pathology results were reviewed. See above. Imaging: As above. We personally reviewed the images and reports, which confirm the findings noted in the HPI. Assessment and Plan: Milad Lane is a 58 y.o. 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 She is s/p right breast and right axilla lymph node biopsy on 01/23/24. Anatomic Stage IIB / Clinical Prognostic Stage IIB, [id number]. We discussed the natural history and general treatment paradigm for her disease. Please see attending attestation for more detail. Specifically, we reviewed the practicalities of radiation treatment, the treatment planning process, and the typical radiation treatment course, including potential early and late toxicities. We explained what a course of breast radiation entails. Radiation proceeds over several weeks time and is de livered Monday through Monday, 5 days per week. The process for planning a radiation course including the need for CT simulation in the prone position, placement of tattoos, generation of a virtual 3dimensional conformal radiation therapy plan from the acquired CT images, and the need for verification of the computer generated plan prior to beginning treatment was explained. We reviewed with patient the acute side effects of treatment and the risk potential for late complications. She was made aware that the acute side effects she may experience include, but are not limited to, skin erythema, tanning, breast discomfort, peeling, breast swelling, and fatigue. The temporary nature of these symptoms was explained, the supportive therapies that are available should they occur reviewed and the average timeline for their resolution was given. We did discuss that there froylan risk for permanent complications from breast irradiation. These include but are not limited to a,10-15% risk of permanent skin color change on the treated breast that is usually tanning but can behypopigmentation, a 10-15 % risk of increased firmness of the breast that does not generally alter the breast appearance significantly and a 2-3% risk of severe radiation fibrosis that can impact thebreast appearance. Finally there is a rare < 1% risk for radiation pneumonitis when a portion ofthe ipsilateral lung is included in the field, and a remote < 0.1% risk for a secondary cancer. Patient reports she is leaning toward a bilateral mastectomy with delayed reconstruction MRI Bilateral breast for franci evaluation pre treatment. CT Chest noted 12 x 13 mm low density right thyroid lobe nodule with peripheral calcification. Patient does have a chronic thyroid goiter that is being monitored by her grinder hardboard. She is going to update him regarding her recent CT chest findings and request his recommendations. Patient is interested in receiving her radiation treatment at [facility] in [place]. Will reach out to their team in attempt to coordinate. Ms. Milad Lane 's questions were answered to her satisfaction. Pt seen and plan reviewed with attending physician, Dr. Gonzales. ROME Boogie Department of Radiation Oncology * Taisha Gonzales MD - 02/15/2024 1:30 PM EDT Attending Attestation: I saw and evaluated the patient with ROME Boogie. I provided a substantive portion ofthe care for this patient. I personally performed all aspects of the medical decision making for this encounter. I have reviewed and verified this documentation and it accurately reflects our care. Idiscussed my findings and the therapeutic plan with the SERVICE ADMINISTRATOR. I agree with the entry level sales representative history, physicalexamination, and medical decisions as outlined. I independently reviewed her imaging and pathology reports. Milad Lane is a 58 y.o. 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 She presents today as a new patient for evaluation and discussion of treatment recommendations. US Axilla on 02/05/2024 showed Abnormal right axillary lymph node. Milad Lane is feeling overall well with no clinical concerns. She is not sure of the surgical route she will proceed with, but is currently leaning towards bilateral mastectomy with delayed reconstruction. She lives in [place], and may decide to receive RT at [facility]. She is not established with an OB-MOTOR VEHICLE TECHNICIAN. Patient notes hx of total hysterectomy. Denies blurry vision, dizziness, imbalance. On exam, palpable right breast mass and palpable right axillary lymph node. Left breast with dense breast tissue with no palpable left axillary lymph nodes. No palpable supraclavicular or neck lymph nodes. Imaging CT Chest (02/13/2024) Right breast nodule with asymmetrically prominent right axillary lymph nodes concerning for neoplasia No pulmonary nodule, adenopathy within the chest, or conspicuous bony metastasis 12 x 13 mm low density right thyroid lobe nodule with peripheral calcification series 2 images 2-6. CT abdomen/pelvis (02/13/2024) - 4.7 cm liver lesion, likely a hemangioma, but MRI could be considered for confirmation. - No evidence of metastatic disease in the abdomen or pelvis. Bone scan negative. MMG Diagnostic Right Breast (02/05/2024) There is an irregular 2.3 cm mass in the 3:00 position of the right breast with a coil clip in appropriate position. There are a few scattered microcalcifications identified in the right breast however there is no group of suspicious microcalcifications posterior to the patient's mass. There are no suspicious masses, calcifications, or architectural distortions. BI-RADS: 6: Known biopsy proven malignancy A/P: Upon my review of her CT chest, I noticed a few enlarged L IMNs. MRI Breast ordered to evaluate nodes in order to plan for treatment. We will tentatively plan for 5-6 weeks of treatment (25-30 fx); subject to change depending on surgical route and final surgical pathology. The logistics of treatment and anticipated short and nursing home side effects were discussed. We will reach out to the Radiation Oncology team located at [facility] in [place] to coordinate care. Thank you for allowing me to participate in her care. Please don't hesitate to contact me with questions or concerns. Documented by Eulalio Lin, for Dr. Taisha Gonzales on 02/15/2024 at 3:27 PM. All medical record entries made by the Delia were at my direction and personally dictated by me, Taisha Gonzales MD . I have reviewed and edited the chart and agree that the record accurately reflects my personal performance of the history, physical exam, assessment and plan. I have also personally directed, reviewed, and agree with the discharge instructions. Taisha Gonzales MD [facility] Radiation Oncology Department * Gloria Yost RN - 02/15/2024 1:30 PM EDT New Patient and Breast Cancer (New patient visit to discuss RT for RIGHT breast cancer) The patient resides with , Roly, Drive time about 1.5 hours. The patient does have available transportation. Implantable Devices: No Pain Assessment: Presence of Pain: denies pain/discomfort Patient Concerns: Patient reports has been in touch with social work regarding housing. Discussed FMLA, RN answered patient's questions. Patient Handouts: Advanced Directives Packet, Spiritual Care, [facility] Care for Life, and Parenting Through Cancer Milad Lane was offered and declined a Medical Supervisor Spring Up for this exam/procedure/test 02/15/2024. Report given to ROME Boogie RN documented in this encounter[facility] Instructions* Patient Instructions* Taisha Gonzales MD - 02/15/2024 1:30 PM EDT Your Radiation Oncology Team Doctor: Taisha Gonzales MD Advanced Practice Provider(s): ROME Boogie; LAUREN Beverly CNP; Dalia Harrington PA-C; ROME Hickman Primary Nurses: FERCHO Guerin, [place], RN; NOLBERTO RuvalcabaN, RN; NOLBERTO CastroN, RN We are available to take calls at [phone] Monday-Monday 8:00am-4:30pm. Please allow 24 hours for non-urgent return phone calls and MyChart messages. During non-business hours and holidays, phone calls will be managed by after- hours [facility] RN's. Please allow at least 10 business days for your team to complete any paperwork. When requesting medication refills, please try to provide as much notice when possible (5 days) in order to ensure that you do not run out of medication. TAKE BACK PROGRAM: A drug take-back program is the best method to dispose of un-needed opioids safely. You can locate the take-back program closest to you @ https://takebackday.[facility].gov under the COLLECTION SITE [employer]ORER PIPELINES tab. Today's Summary: -You have a stage 2 breast cancer of your right breast that is ER positive, VA positive, HER2 negative -We will discuss your case with the radiation oncology team at [place] -Radiation therapy is generally recommended after lumpectomy to help reduce the risks of recurrence, to help improve survival, and to help you conserve your breast -If you have lymph node involvement at time of lumpectomy, we recommend recommend radiation to the whole breast and regional lymph nodes (under the arm, collar bone, and breast bone) for 25-30 treatments. -If you have a mastectomy and cancer in your lymph nodes, we would recommend treatment to the chestwall and regional lymph nodes for 25-30 treatments. -All of our treatment recommendations may change pending final pathology from your surgery. -If radiation therapy is recommended and you would like to proceed, the next step is a planning session for the radiation -This involves a CT scan in the treatment position -Please schedule a telehealth video visit with ROME Boogie 3 weeks after surgery. -It was a pleasure to meet you today and please call [phone] if you have any questions -Thank you! Dr. Christian MD/ROME Boogie [facility], Radiation Oncology documented in this encounterMer[facility]08[facility] Hospital Discharge instructions* Patient Instructions* Cruz Doyle - 02/13/2024 1:00 PM EDT The Department of Radiology Imaging Services Contrast Medication Post Instructions During your Radiology Procedure today you were given IV contrast medication (Omnipaque). This contrast medication is clear and will be excreted through your kidneys. Please follow the instructions below. If you are not on any fluid restrictions, please drink 8-10 glasses of water within the next 24 hours, to flush your kidneys. Thank you for choosing the Department of Radiology at [facility]. If you need further follow up please do not hesitate to contact us. Contact documented in this encounterOSU [facility] History of Present illness Narrative* Nkechi Morgan RN - 02/13/2024 9:30 AM EDT Patient offered a medical mechanical adjuster for sensitive exam. Patient declined mechanical adjuster. * ROME Us - 02/13/2024 9:[address] returns to the clinic for pre op discussion of port placement with Dr. An. She has staging scans scheduled today and port placement scheduled 02/16/24. We reviewed pre and post op instructions for port placement. Discussed treatment plan and related questions to date. We will see her back near the end of her chemotherapy in the Surg/Onc clinic to plan for surgery. We will call her to arrange this. All questions were answered. documented in this encounterMer[facility]08-[facility]-2024 Instructions* Patient Instructions* Roel García, COUNTY HOME DEMONSTRATION AGENT-SERVICE ADMINISTRATOR - 02/13/2024 9:30 AM EDT Patient Medication Instructions: Here is a list of your current medications we have on file: Current Outpatient Medications Medication Sig ASHWAGANDHA PO Take 1 tablet by mouth daily. ergocalciferol 1.25 MG (97826 UT) capsule Take 1 capsule by mouth Every other week. HERBAL PRODUCT Take 1 tablet by mouth daily. Magnesium hydroCHLOROthiazide 25 MG tablet Take 1 tablet by mouth daily. levothyroxine 50 MCG tablet Take 1 tablet by mouth daily. magnesium oxide 400 MG tablet Take 1 tablet by mouth daily. Zolpidem (Ambien) 5 MG tablet Take 1 tablet by mouth At bedtime as needed for Sleep. Turmeric (QC TUMERIC COMPLEX PO) Take 1 tablet by mouth daily. (Patient not taking: Reported on 02/13/2024) - Only take levothyroxine on the morning of surgery with a sip of water. Do not take any of your other medications on the morning of surgery. -If you use inhalers, use all your inhalers on the morning of surgery. - Do NOT take Herbal Medication (including fish oil ([place]-3), garlic, Glucosamine - Chondroitin ,gingko, ginseng, Vitamin E) 2 weeks before surgery. - Do NOT take aspirin, ibuprofen, Advil, Motrin, naproxen, or Aleve for 7 days before surgery. -If you are taking prescription blood thinning medications, we will advise you on stopping these medications as recommended by the medical provider who writes that prescription. -If you are having surgery at [facility]), please bring your home medications in their original bottles to take while at this facility. If having surgery at [facility]), this is not indicated. Patient Pre-Operative Instructions: -Shower or bathe with the Chlorhexidine soap you were given in clinic for five days before surgery,including just before you leave to report to the hospital for surgery. See the instructions in yourpreoperative teaching book for more information. - Do NOT shave, or pluck hair from anywhere near the surgical site the day of or the day before surgery. - Starting at midnight the day before surgery, you must stop eating and drinking anything but water. You may drink water only until two hours before the time you need to report to the hospital for surgery. Starting two hours before your report time do not eat or drink anything, including water. (NoCandy, Mints and/or Gum.) -DO NOT take any medications the morning of surgery unless your provider or nurse has instructed you to take them. You may take pills you have been given permission to take with water two hours before you report for surgery. - Do NOT wear any jewelry, watches, rings, hairpieces, makeup, or contact lenses the day of surgery. You may wear your eye glasses or hearing aids, the nurse will work with you to store these during surgery. - [place] your teeth and rinse your mouth the morning of surgery. - Do NOT bring your dentures with you into surgery. They may be lost. Give them to someone to bringto you after surgery. - If you use a CPAP or BiPAP mask and machine, please bring it with you to the hospital. -Please bring a shirt which opens in the front and loose fitting pants (or shorts) such as sweat pants to wear home from the hospital. * Attachments The following attachments cannot be sent through Care Everywhere. * Port: Implanted: Pre-op ([place]) documented in this encounterU [facility] History of Present illness Narrative* Jenifer Olivo RN - 02/09/2024 9:40 AM EDT Patient offered a medical mechanical adjuster for sensitive exam. Pt accepted Jenifer Olivo RN served as medical mechanical adjuster for the sensitive exam. * Lucio Joseph MD - 02/09/2024 9:40 AM EDT History of Present Illness: Ms Lane presented to our clinic for breast cancer. She started to feel a mass in her right breast in January 2024. Bilateral diagnostic mammogram and right breast ultrasound showed 1.9x2.2x1.7 cm mass in right breast at 3 position along with 2.4x1.2x1.5 cm abnormal right axillary node. Biopsy of the mass showed IDC, grade 3, ER > 95%, VA 32%, HER2 equivocal, FISH negative, Ki-67 75%. Biopsy of the axillary node was positive for carcinoma. She has been referred to genetics. We discussed that itis reasonable to try to downstage the axilla with neoadjuvant chemo based on grade 3 and high Ki-67. We discussed possible side effects of ddACT and she agreed to proceed. She will get baseline labs,TTE and port. We also briefly discussed adjuvant treatment with AI and abemaciclib. Stylist Apprentice History: , , menarche at age 11, LMP in her early forties. Medical/Surgical History: Past Medical History: Diagnosis Date Anxiety Essential hypertension, benign Goiter Malignant neoplasm of overlapping sites of right breast in female, estrogen receptor positive 01/19/2024 IDC, ER+/VA+/HER2 equivocal Uterine fibroid Past Surgical History: Procedure Laterality Date CORE BIOPSY OF THE BREAST Right 01/19/2024 Malignant neoplasm of overlapping sites of right breast in female, estrogen receptor positive SECTION 1988 SECTION 1987 SECTION 1983 CHOLECYSTECTOMY 1983 HYSTERECTOMY OOPHORECTOMY LAVERN AND BSO 40's Family/Social History: Her family history includes Breast Cancer (age of onset: 76) in her maternal aunt; Cancer- Other inher brother, mother, and paternal grandmother. She reports that she has never smoked. She has never used smokeless tobacco. She reports current alcohol use of about 1.0 - 3.0 standard drink of alcohol per week. She reports that she does not use drugs. Medications/Allergies/Immunizations: Her current medication(s) include has a current medication list which includes the following prescription(s): ASHWAGANDHA PO, ergocalciferol 1.25 MG (28447 UT) capsule, HERBAL PRODUCT, hydroCHLOROthiazide 25 MG tablet, levothyroxine 50 MCG tablet, magnesium oxide 400 MG tablet, Turmeric (QC TUMERICCOMPLEX PO), and Zolpidem (Ambien) 5 MG tablet. Allergies: Metronidazole Review of Systems: General/Constitutional: positive for fatigue, Negative for fever, chills, recent weight gain or loss. HEENT: No visual disturbances. No hearing loss, tinnitus, sore throat, nosebleeds or rhinorrhea. Nodysphagia. Cardiovascular: Negative for palpitations, chest pain or dyspnea on exertion. Respiratory: Negative for chronic or productive cough, hemoptysis, or asthma. Gastrointestinal: Negative for abdominal pain, nausea, vomiting, diarrhea, constipation or changes in bowel habits. Genitourinary: Negative for dysuria or hematuria. No frequency, urgency, or hesitancy. Musculoskeletal: Negative for arthralgias, myalgias, or back pain. Neurological: Negative for dizziness, focal weakness or headaches. Psychiatric: Negative for depression, anxiety or mood disorders. Lymph/Heme: No history of hematologic malignancies or bleeding disorders. Endocrine: Negative for polyuria, polydipsia or hot/cold intolerance Skin: Negative for acute skin lesions. Physical Exam: Vitals: BP 127/77 (BP Location: Left arm, BP Position: Sitting) Pulse 58 Temp 97.3 F (36.3 C) (Oral) Resp 16 Wt 97.6 kg (215 lb 1.6 oz) SpO2 99% BMI 35.79 kg/m Smoking Status Never Patient's Current Performance Status 0 General/Constitutional: Well developed, well nourished female, No acute distress. HEENT: Head: Normocephalic and atraumatic. Sclerae are anicteric. Neck: Supple, non-tender, with nolymphadenopathy. Cardiac: Regular rate and rhythm. Normal S1, S2. No murmurs, rubs or gallops. Pulmonary/Chest: Lungs are clear to auscultation bilaterally. No wheezes, rhonchi or rales noted. Abdominal: Abdomen with normoactive bowel sounds in all four quadrants. Soft, non-tender, non-distended. Extremities: N No cyanosis or clubbing or peripheral edema. Neurological: Conscious, alert and oriented. No focal neurologic deficit. Skin: Skin is warm and dry. She is not diaphoretic. Psychiatric: Appropriate mood and affect. Breast exam: done in presence of a mechanical adjuster: palpable mass in right breast at 3 position measuringaround 3x2 cm, palpable right axillary node, no skin changes. Impression and Recommendations: Right breast IDC, cT2N1, grade 3, ER > 95%, VA 32%, HER2 equivocal, FISH negative, Ki-67 75%. She has CT Scan C/A/P and bone scan scheduled on 02/12, ordered by surgery team. She has been referred to genetics. We discussed that it is reasonable to try to downstage the axilla with neoadjuvant chemo based on grade 3 and high Ki-67. We discussed possible side effects of ddACT and she agreed to proceed. She will get baseline labs, TTE and port. We also briefly discussed adjuvant treatment with AI and abemaciclib. Follow-up in 2 weeks to start treatment. I spent 60 minutes taking care of the patient with > 50% of the time spent in consultation, education and coordination of care. Lucio Joseph MD documented in [facility] Instructions* Patient Instructions* Jenifer Olivo RN - 02/09/2024 9:40 AM EDT Images from the original note were not included. When will my phone call be returned? Our providers will do their best to answer your call quickly. You should expect a returned call within 24 hours. If you have an emergency, please call 911 or go to your local emergency department. When will my Luqit message be returned? Our providers will do their best to answer your questions quickly. However, there are certain timeswhen you won t get a response. Our providers won t respond to messages on nights, weekends or holidays. Luqit messages are not for urgent issues, and you can expect a response within 3 business days. If you have an emergency, please call 911 or go to your local emergency department. A business day is Monday through Monday 8 a.m. to 4:30 p.m. When are my results released? Patients have access to most test results as soon as they are available. These results and notes could include sensitive information such as a cancer diagnosis. You always have the choice to wait to view your information in Luqit until you speak with your provider. When will my FMLA/Paperwork be returned? Please allow 7-10 business days for completion of FMLA/Paperwork to be returned. Patient Satisfaction Surveys: Your opinion matters! If you receive a patient satisfaction survey in the mail we would appreciate your thoughts. Please help us get better! Store controlled substances (for example - opioids/narcotics, certain stimulants, certain sedatives, etc.) in a locked cabinet or in an area only accessible to you. When you no longer need the controlled substances that have been prescribed for you, do NOT bring them to [facility]. We are NOT permitted under law to accept controlled substances from a patient for disposal. You may dispose of controlled substances, as well as other old or uabm-onh-sfukqip and prescription medications, by one of the safe methods listed below: A drug take-back program - this is the best method to dispose of medications safely. You can locatethe take-back program closest to you @ https://takebackday.[facility].gov under the [employer]LE[employer] tab. The [facility] of pharmacy homepage also has an RX Disposal Ground Products Director tool @https://www.pharmacy.[place].gov/Compliance/DrugDisposal. If you cannot locate a drug take-back program, never dispose of medications down the sink or toilet. Instead, place the medication in a sealable storage bag and mix with damp coffee grounds, dirt, orcat litter, then seal the bag, and dispose of in your regular trash. If you have or unused cancer medication or hazardous drugs (this does not include Tamoxifen, Anastrozole, Letrozole or Exemestane), these may be potentially donated to our [facility] repository drug program and then given to other patients who are uninsured or underinsured. Ask your [facility] pharmacist about this program. * Attachments The following attachments cannot be sent through Care Everywhere. * paclitaxel ([place]) * AC: Doxorubicin and Cyclophosphamide ([facility]) ([place]) documented in this encounterMer[facility]08-[facility]-2024 History of Present illness Narrative* Yenny Rojas MD - 02/08/2024 12:30 PM EDT Chief Complaint Patient presents with New Patient Referring Physcian: Leonila An MD HPI: Milad Lane is a 58 y.o. female with a new diagnosis of clinical stage IIB (cT2, cN1(f), cM0, G3, ER+, VA+, HER2-) RIGHT breast cancer On 01/12/2024, bilateral screening mammogram was performed. Per outside imaging: Breast composition: There are scattered areas of fibroglandular density. Thereis evidence of a new 1.6 cm x 1.2 cm mass in the central medial anterior aspect of the right breast. There is also enlargement of the right axilla lymph nodes at this time. Biopsy recommended. No other significant abnormalities are identified. Per [facility] radiology review: The breasts have scattered areas of fibroglandular density. There is a mass in the central medial right breast middle depth. There is also an abnormal appearing right axillary lymph node. There are questionable calcifications extending posterior to the mass, although this may be artifact related to technique. No suspicious masses, suspicious calcifications or areas of distortion identified in the left breast. On 01/19/2024, right breast and axillary ultrasound was performed. Per outside read, this showed: The right axilla was examined with ultrasound. There is a 2.4 cm x 1.5 cm x 1.2 cm irregular appearing lymph node in the right axilla with increased blood flow. Biopsy recommended. There is also evidence of the 2, benign appearing lymph nodes in the axilla. The larger measures 1.2 cm x 1.2 cm x 0.5cm. There is evidence of a 2.2 cm x 1.9 cm x 1.7 cm hypoechoic irregular nodule with posterior shadowing at the 3:00 position of the breast at 2 cm from nipple. Per [facility] radiology review: Corresponding to the mammographic finding at the 3:00 position there is an irregular hypoechoic mass measuring 1.9 x 2.2 x 1.7 cm. On cine images the mass may be slightly larger than the measurements provided. This is suspicious. Images of the right axilla demonstrate an abnormal right axillary lymph node measuring 2.4 x 1.2 x 1.5 cm with markedly thickened cortex and eff aced hilum. This is suspicious Additional normal-appearing lymph node is noted. On 01/08/2029, she underwent ultrasound guided right axilla and breast core biopsies. Per outside pathology: Right axillary lymph node core biopsy Metastatic carcinoma, consistent with breast primary Right breast, 3:00 2 cm from nipple, core biopsy Invasive ductal carcinoma, grade 3, greatest dimension 9 mm ER+ (>95%), VA+ (32%), HER2 IHC1-2+ with FISH negative and Ki-67 of 75% [facility] second opinion pathology review was requested on 02/01/2024. On 02/05/2024, she met with Dr. Leonila An from [facility]urg [facility]c. Repeat imaging was performed, as detailed below. Staging scans with CT CAP and bone scan are also planned for 02/13/2024. On 02/05/2024, she underwent right diagnostic mammogram and [facility] as well as right breast and axillary ultrasounds. Mammo: There is an irregular 2.3 cm mass in the 3:00 position of the right breast with a coil clip in appropriate position. There are a few scattered microcalcifications identified in the right breast however there is no group of suspicious microcalcifications posterior to the patient's mass. Thereare no suspicious masses, calcifications, or architectural distortions. US breast: In the 3:00 position the right breast, 3.4 cm from the nipple is an irregular hypoechoic2.4 x 1.9 x 2.8 cm mass with internal vascularity and shadowing. There is a clip in the center of the mass. This is consistent with the patient's history of biopsy-proven malignancy Right axilla: In the inferior right axilla, again seen is an enlarged right axillary lymph node which measures 2.3 x 1.3 x 1.6 cm. Within this, there is a hyperechoic biopsy tract and probable echogenic biopsy marker. According to outside hospital report, the biopsy marker is a ribbon clip which isnot well evaluated on ultrasound. If neoadjuvant therapy is desired, consider placement of a Hydromark biopsy marker for localization. She is referred for a reconstructive opinion. She is accompanied by her . Patient characteristics Significant medical history: HTN, Hypothyroid, Obesity, Anxiety, Fatty liver, Arthritis Prior abdominal surgery: Open fide, C section x3, TAHBSO Tobacco use: Never Current bra size: 38DD Desired bra size: Same Handedness: Right BMI: Estimated body mass index is 35.74 kg/m as calculated from the following: Height as of this encounter: 1.651 m (5' 5). Weight as of this encounter: 97.4 kg (214 lb 12.8 oz). PMH/FH of DVT/PE: No though mother and brother have varicose veins and mother also had phlebitis PMH/FH of miscarriages: Personal history of 2 miscarriages Occupation: Counselor PAST MEDICAL HISTORY Hypertension Hypothyroidism Obesity Anxiety Fatty liver Arthritis History of edema History of irregular heartbeat - patient reports this is rare Back pain Varicose veins noted on exam PAST SURGICAL HISTORY Open cholecystectomy C section x3 Total abdominal hysterectomy and BSO in her 40s. Colonoscopy in 2021 Right MOTOR VEHICLE TECHNICIAN HISTORY with history of 2 miscarriages. She had menarche at 11 and was 18 at first . She underwent TAHBSO in her 40s. She reports she only took HRT for 2 months. SOCIAL HISTORY She is a never smoker. She drinks alcohol occasionally. She denies drug use She is . She lives with her . She works as an independent licensed professional clinical counselor FAMILY HISTORY Mother with pancreatic cancer at age 60 with recurrent at age 71. She also had multiple skin cancers treated with surgery only. Patient is unsure if this included melanoma. She also had varicose veins and history of phlebitis Brother with bladder cancer at age 72 Brother with varicose veins. Maternal aunt recently diagnosed with breast cancer around age 76 Past Medical History: Diagnosis Date Anxiety Essential hypertension, benign Goiter Malignant neoplasm of overlapping sites of right breast in female, estrogen receptor positive 01/19/2024 IDC, ER+/VA+/HER2 equivocal Uterine fibroid Past Surgical History: Procedure Laterality Date CORE BIOPSY OF THE BREAST Right 01/19/2024 Malignant neoplasm of overlapping sites of right breast in female, estrogen receptor positive SECTION 1988 SECTION 1987 SECTION 1983 CHOLECYSTECTOMY 1983 HYSTERECTOMY OOPHORECTOMY LAVERN AND BSO 40's Current Outpatient Medications: ASHWAGANDHA PO, Take 1 tablet by mouth daily., Disp: , Rfl: ergocalciferol 1.25 MG (16860 UT) capsule, Take 1 capsule by mouth Every other week., Disp: , Rfl: HERBAL PRODUCT, Take 1 tablet by mouth daily. Neuro cognitive, Disp: , Rfl: hydroCHLOROthiazide 25 MG tablet, Take 1 tablet by mouth daily., Disp: , Rfl: levothyroxine 50 MCG tablet, Take 1 tablet by mouth daily., Disp: , Rfl: magnesium oxide 400 MG tablet, Take 1 tablet by mouth daily., Disp: , Rfl: Zolpidem (Ambien) 5 MG tablet, Take 1 tablet by mouth At bedtime as needed for Sleep., Disp: , Rfl: Turmeric (QC TUMERIC COMPLEX PO), Take 1 tablet by mouth daily., Disp: , Rfl: is allergic to metronidazole. Family History Problem Relation Age of Onset Cancer- Other Mother pancreatic- 60, recurrance at 71. Multiple skin cancers pt thinks melanoma Cancer- Other Brother bladder Breast Cancer Maternal Aunt 76 Cancer- Other Paternal Grandmother Social History Socioeconomic History Marital status: Spouse name: Not on file Number of children: Not on file Years of education: Not on file Highest education level: Not on file Occupational History Not on file Tobacco Use Smoking status: Never Smokeless tobacco: Never Vaping Use Vaping status: Never Used Substance and Sexual Activity Alcohol use: Yes Alcohol/week: 1.0 - 3.0 standard drink of alcohol Types: 1 - 3 Standard drinks or equivalent per week Drug use: Never Sexual activity: Yes Partners: Male control/protection: Hysterectomy Other Topics Concern Not on file Social History Narrative MOTOR VEHICLE TECHNICIAN: Para: 3 Age at of first child: 18 Age of menarche: 11 Age of menopause: 40's- pt had a complete hysterectomy, was on estradiol patch x few months following. Patient denies hormonal therapy at this time. BREAST (GENERAL): Patient admits to self-breast exams and does them several times per month. Date of patient's first mammogram: Age 39 Date of most recent mammogram: 01/12/2024 Bra/Cup Size: 38DD BREAST(HISTORICAL BIOPSY/THERAPY/TREATMENT) Patient admits to previous breast biopsy(s). Patient admits to being told they personally have breast cancer or a breast malignancy. Patient denies chemotherapy, hormone therapy or radiation therapy during the last month. Social Determinants of Health Financial Resource Strain: Medium Risk (02/05/2024) Overall Financial Resource Strain (CARDIA) Difficulty of Paying Living Expenses: Somewhat hard Food Insecurity: No Food Insecurity (02/05/2024) Hunger Vital Sign Worried About Running Out of Food in the Last Year: Never true Ran Out of Food in the Last Year: Never true Transportation Needs: No Transportation Needs (02/05/2024) PRAPARE - Transportation Lack of Transportation (Medical): No Lack of Transportation (Non-Medical): No Physical Activity: Not on file Stress: Not on file Social Connections: Not on file Intimate Partner Violence: Not on file Housing Stability: Not on file Physical Exam: BP 156/78 (BP Location: Right arm, BP Position: Sitting) Pulse 66 Temp 98 F (36.7 C) (Oral) Resp 16 Ht 1.651 m (5' 5) Wt 97.4 kg (214 lb 12.8 oz) SpO2 97% BMI 35.74 kg/m Smoking Status Never Body mass index is 35.74 kg/m . General: female who appears her stated age, in no acute distress. Breast: - Size: Appears stated size - Symmetry: Right slightly larger - Deformity: Mild tuberous breast - Ptosis: Grade 1 - Scars: None - Masses: Right breast with ill defined mass/ fullness centrally at 3:00. No left breast masses - LN: No cervical, supraclavicular or left axillary adenopathy. Right axilla adenopathy, about 2 cmand mobile with tenderness to palpation - Measurements: R L N-N 29 cm 29 cm N-IMF 7 cm 6 cm AD 5 cm 5 cm N-ML 11.5 cm 11 cm BW 13-14 cm 13-14 cm Abdomen: General: Soft nontender Previous incision scars: Pfannenstiel and right subcostal scars Rectus abdominis muscle: contracts normally bilaterally Hernias: Possible small umbilical hernia. Soft tissue is sufficient for breast reconstruction (bilateral) Back: - Scars: None - Latissimus dorsi muscle: contracts normally bilaterally Extremities: warm and well perfused. Few varicosities noted of right kim - Buttocks: deferred - Thighs: deferred Assessment and Plan: Pertinent reconstruction options were presented as outlined below. A detailed conversation was had regarding the patient s options for breast reconstruction. Five main points, which are explained to all breast reconstruction patients, were discussed. Breast reconstruction is an optional process. In addition, breast reconstruction can be performed in an immediate and delayed fashion. Even if a patient does not opt for reconstruction now, it can performed at a later time. Breast reconstruction is a multi-stage process which involves multiple surgeries spaced several months apart. The entire process can take over one year. The patient can stop within this process and/or resume it again at any time. The major goal of breast reconstruction is to have the patient look normal in clothing. When naked,there will always be scars and other stigmata of the breast reconstruction process. Asymmetries are often present during the reconstruction process. Several operations may be needed, including surgery to the non-cancerous breast, to achieve satisfactory results. No matter the reconstructive method, there are ways that the reconstruction can fail and a secondary reconstructive plan would need to be created. Next, a general discussion regarding all available methods of breast reconstruction were discussed.The types of reconstructions described included: Tissue clerical order filler and implant based reconstruction, both single and multi-stage approaches. Autologous only reconstructions, including free abdominal-tissue based reconstructions. Combination procedures, particularly latissismus dorsi flaps combined with either expanders or implants. Oncoplastic breast reconstruction in the setting of lumpectomy and adjuvant radiation. For each of the reconstruction methods mentioned above, the risks, benefits, alternatives, scarring, and recovery time were discussed in great detail. Specific risks detailed included bleeding, infection, hematoma, seroma, scarring, pain, wound healing complications, partial or total flap loss, fat necrosis, capsular contracture, rippling, need for implant removal, donor site complications, bulge, hernia, umbilical necrosis, need for urgent reoperation, need for further surgery and need for dressing changes were discussed. With respect to reconstruction involving breast implants, we discussed that breast implant-associated anaplastic large cell lymphoma (JORDYN-ALCL) is a rare and treatable type of T-cell lymphoma that can develop around breast implants. JORDYN-ALCL is not a cancer of the breast tissue itself. According tothe most recent data available, the risk of association between breast implants and ALCL is extremely low. The current lifetime risk of JORDYN-ALCL in the [place] is estimated to be 1:30,000 women with textured implants based upon current confirmed cases. We discussed that if the patient has any further questions on this subject, that they should not hesitate to inquire with me. We discussed that using ADMs in breast reconstruction and other breast surgeries is off-label and not approved. ADMs have FDA approval for certain uses. Other treatments, prescriptions, and therapieshave been explained. The patient expressed understanding of their benefits, risks, and disadvantages. The risks and complications of the mastectomy and the off-label use of ADMs have been explained to me. They may include: Fluid buildup under the skin (seroma). It may require drains for a long time Breast infection Slow healing or opening of the incision (wound dehiscence) Bleeding (hematoma) A breast implant or tissue clerical order filler may become exposed. It would need to be removed The skin on the breast could (skin necrosis) Capsular contraction could happen again The implant could move around in the breast ADM may not incorporate. It would need to be removed For oncoplastic reconstruction, I discussed the rationale, objectives, incisions/scars, duration, recovery time, postoperative restrictions, and follow-up. I discussed the possibility of drains. Risks that were discussed include surgical (bleeding, infection, hematoma, seroma, wound breakdown, need for further surgery, pain, numbness, weakness, asymmetry, cosmetic deformity, injury to structures,nipple loss, nipple numbness) and medical (heart attack, pneumonia, DVT/PE, ). I discussed thepossibility of the need for further surgery based on final pathologic margin status, which can potentially be more difficult following the breast tissue rearrangement that occurs with oncoplastic breast reconstruction. I discussed the option of contralateral breast reduction, including performed concurrently with ipsilateral oncoplastic breast reconstruction, at a subsequent stage, or not at all,and the relative risks and benefits. I discussed the unpredictable effects of radiation therapy, which might result in asymmetry, and therefore in some cases a potential role for additional reconstructive surgery at a later time. Once all reconstruction options were presented, a focused discussion was had regarding the patient's suitability for each of these procedures. I had a long discussion with the patient regarding the potential involvement of plastic surgery in oncoplastic reduction. She understands goals of plastic surgery are to improve her overall symmetry and aesthetics. I first discussed the expected natural history following a lumpectomy with radiationtherapy. She understands the lumpectomy defect will initially be filled with seroma fluid, however following radiation therapy I would anticipate this cavity may collapse leaving her with an unpredictable contour irregularity. She understands that full correction of this irregularity afterward may be difficult following radiation therapy. I explained the goals of the oncoplastic breast reduction are to rearrange the remaining breast tissue following the lumpectomy to prevent this seroma cavity and its later collapse. This utilizes techniques similar to standard breast reduction. She understands that following the surgery her breast will be slightly smaller. She also understands that following radiation therapy they will be in unpredictable amount of parenchymal shrinkage, perhaps in the 10 -15% range, and that this volume loss may take several months to fully develop. Due to this unpredictable volume loss following radiation therapy I explained two strategies. One would be initially toreduce the oncoplastic side slightly less than the contralateral side, anticipating some volume loss from radiation. Second would be to stage the procedures, performing the contralateral balancing procedure approximately 3-6 months following the completion of radiation therapy to allow any volume loss be evident. I did explain that volume loss may still occur in the radiated side up to 2 years following radiation therapy. The need for postoperative drains as well as the expected postoperative course of recovery were all explained to her. The expected scar pattern was also illustrated for the patient. I discussed recommendations for post-mastectomy reconstruction in consideration of the increased likelihood that the patient may receive postmastectomy radiation therapy. With respect to timing of reconstruction, I recommended delayed breast reconstruction. I discussed the recommendation to wait at least 6 months from completion of postmastectomy radiation therapy before pursuing breast reconstruction, and the rationale. I discussed that in some cases it is necessary to wait 12+ months. With respect to method of reconstruction, I recommended a form of breast reconstruction that includes a component of autologous tissue, and the rationale. I discussed that the patient would be a candidate for 2-stage LD/implant or autologous reconstruction from the abdomen. I discussed that the final recommendation about reconstructive method will depend in part on radiation changes. I discussed that radiation therapy makes attaining symmetry more complicated and that in general we aim for symmetry in a bra but that there will likely be some degree of asymmetry outside of a bra. We discussed LD/implant based vs. autologous breast reconstruction. In regards to combination procedures, we discussed placing a tissue clerical order filler at the time of latissimus dorsi musculocutaneous flap. We discussed that larger breast size and larger implant size are associated with increased rates of complications. We discussed the use of acellular dermal matrix in breast reconstruction and that the use of ADM may be associated with increased risk of seroma, infection and loss of reconstruction. Advantages of ADM include more rapid expansion and possibly better aesthetic outcomes as well as controlling where the device sits though this is less likely needed with 2-stage LD/ implant reconstruction. Other benefits of this type of implant based reconstruction were discussed such as reliable volume, decreasedoperative times, decreased hospital stays and recovery time. In addition, we discussed the risks associated with LD/ implant based reconstruction such as bleeding, seroma, capsular contracture, need for possible replacement, lifelong risk of infection, use of a foreign material, rupture, rippling, implant malposition, scar on the back, LD sacrifice and failure of the implant to change and age with the rest of the body. We discussed the risk of breast implant associated anaplastic large cell lymphoma, which has been associated with silicone breast implants. The best estimates currently are 1:30 ,000. We discussed that as more data is collected these risks may be end up being higher or lower. In addition, we discussed that textured implants are believed to be significantly more likely to be associated with this disease than smooth implants. We discussed the differences between saline and silicone breast implants. Advantages of saline implant include that if an implant ruptures that the saline will be reabsorbed into the tissues and the ability to customize the implant size within a defined range. Disadvantages include more likely to show rippling and in some patient's view a less natural feel. Silicone breast implants are less likely to ripple and may feel more natural, however, some patients worry about having silicone in their body. She was reminded that saline implants also use a silicone outer shell. Symptoms such as fatigue, memory loss, rash, brain fog, and joint pain have been reported by some patients with breast implants. Some patients may use the term breast implant illness (BII) to describe these symptoms. Researchers are investigating these symptoms to better understand their origins. These symptoms and what causes them are poorly understood. In some cases, removal of the breast implants without replacement is reported to reverse symptoms of breast implant illness. At this point plastic surgeons and plastic surgery societies (ASPS, ASAPS) cannot yet define BII and therefore cannotsay with any certainty that it exists, because we do not have any tests we can run to prove or disprove its existence. We did discuss options including removal of the implants, which may or may not provide relief. We next discussed autologous reconstruction. We discussed the difference between a free TRAM vs. msfree TRAM and KARSTEN flaps. If she decides to undergo breast reconstruction with a KARSTEN flap she is aware that we may need to take muscle as indicated. We discussed secondary donor sites including medial thigh (PAP, TUG, DUG) and buttock (SGAP). We discussed the need for undergoing delayed autologous reconstruction including uncertainty in regards to the patient's need for radiation postoperatively and the inability to coordinate the breast surgeon and the plastic surgeons for autologous breast reconstruction cases. We discussed the possibility of placing a prepectoral tissue clerical order filler in this circumstance to help and preserve the la posta breast skin. Advantages would be preserving the skin and reducing the size of the skin paddle required to be taken from the abdomen. Disadvantages would be the need to undergo tissue expansion and the risks associated with that process. We discussed the benefits of autologous tissue such a no foreign body, no lifetime risk of infection, no need for replacement, no rupture concerns, the ability of the flaps to age and change with the la posta tissue of thepatient more naturally. We also discussed the risks such as prolonged operative time, additional scars, weakness, bulging and/or hernia with abdominal flaps, longer recovery, longer hospital stay, and possible partial or even total flap loss, which occurs at 1-10% rate depending upon the flap type.If interested in undergoing autologous reconstruction we discussed that we will obtain a CTA of thetissue that we are planning to transfer to better understand blood flow patterns. I discussed the condition of lymphedema, including its pathophysiology and the management. I discussed that not all patients who undergo therapy for breast cancer develop lymphedema. I discussed thatcurrently there is no cure for lymphedema and that lymphedema is traditionally managed with physical therapy, such as compression and massage. I discussed lymphovenous bypass surgery. I discussed with the patient the option of prophylactic lymphovenous bypass surgery (P-LVB) at the time of surgical therapy for breast cancer to prevent lymphedema. This discussion included a detailed review of the risks, benefits, alternatives, and complications. I discussed that even if a patient undergoes P-LVB, that they can still develop lymphedema. The patient was educated on signs and symptoms of lymphedema, and to return for further evaluation if these were to develop. All of the patient's questions/concerns were addressed. The patient would be a candidate for: - Implant based reconstruction: Not recommended given need for radiation - Abdominally based free flap reconstruction: Yes in a delayed fashion - LD+implant based reconstruction: Yes in a delayed fashion - Oncoplastic breast reconstruction: Yes - RIGHT axilla pLVB: Yes After a long discussion about these factors, the patient is unsure what she would like to pursue interms of breast reconstruction as work up/ staging is incomplete. Ultimately, I discussed that if mastectomy is recommended and she desires reconstruction, I would recommend delayed reconstruction using some form of autologous tissue given need for radiation. She is interested in pLVB if ALND is required. Outside pathology has not been read by [facility] pathology yet - referral placed for review on 02/01/2024 Med Onc appointment on 02/09/2024 Genetics appointment on 02/13/2024 Staging scans scheduled for 02/13/2024 Rad Onc appointment on 02/15/2024 PT referral placed for lymphedema education and baseline measurements We will get financial/ precert team involved regarding lymphatic surgery If she proceeds to surgery and desires reconstruction, we will plan to see her for a preoperative visit once a surgical date has been identified. 40 minutes were spent face to face with the patient, of which over half were counseling and coordination of care. [facility] History of Present illness Narrative* Zohreh Lara - 02/05/2024 11:17 AM EDT Patient offered a medical mechanical adjuster for sensitive exam. Patient declined. [facility] History of Present illness Narrative* ROME Us - 02/05/2024 9:30 AM EDT Subjective Clinical Care Team: -Referring Provider for today's consult: Rachel Vaz MD -Primary Care Provider: Emperatriz Jordan History of Present Illness: Chief Complaint Patient presents with New Patient New right breast IDC at 3:00. ER/VA+ HER2 FISH pending with +LN. Found on screening mammogram. Pt endorses a palpable mass which the patient feels is getting larger. Pt also endorses intermittent pain and itching as well. Milad Lane is a 58 y.o. female who presents to the [facility] for diagnosis of right breast cancer. 01/12/24 bilateral screening mammogram showed new right breast mass in the central medial anterior aspect of the right breast measuring 1.6 x 1.2 cm. Enlarged axillary lymph nodes were noted. Right axilla showed 2.4 x 1.5 cm irregular appearing lymph node in the right axilla with increased blood flow (BIRADS-5). Biopsy was recommended. 01/19/24 right breast biopsy showed invasive ductal carcinoma, grade 3, ER positive (>95%, strongintensity), VA positive (32%, moderate intensity), HER2 1- 2+ (equivocal) and FISH not amplified. Lymph node positive for metastatic carcinoma consistent with breast primary. 02/01/24 [facility] review of outside films showed suspicious right breast masses having undergonebiopsy at right breast 3:00 and in right axilla. It is not clear if clips were placed or type of clips placed. There is suggestion of possible associated calcifications extending outside the mass butcould represent artifact. This could be reassessed on diagnostic mammogram and repeat US could be performed to get better assessment of true size. 02/05/24 presents to establish in Surg/Onc breast clinic with Dr. An. She reports right breast lump about six weeks prior to her screening mammogram but thought this may be a benign finding as hermother had a similar symptom in her past. She does report some pain and itching. She has noted somenumbness and tingling in the left arm for about 1 month. She is accompanied by her and daughter to today's visit. She has a family history of breast cancer in her maternal aunt at age 72 and mother had pancreatic cancer at age 60 with recurrence at 71. He mother also had many skin cancers removed from her face (unknown origin). Her brother had bladder cancer at 72. I have reviewed [facility] medical, surgical and other pertinent history in detail, and have updated where appropriate in the computerized patient record. Oncologic History: Cancer Staging Malignant neoplasm of overlapping sites of right breast in female, estrogen receptor positive Staging form: Breast, AJCC 8th Edition - Clinical stage from 02/05/2024: Stage IIB (cT2, cN1(f), cM0, G3, ER+, VA+, HER2-) Oncology History Malignant neoplasm of overlapping sites of right breast in female, estrogen receptor positive 01/19/2024 Initial Diagnosis Malignant neoplasm of overlapping sites of right breast in female, grade 3, estrogen/progesterone receptor positive, HER2 1-2 + (equivocal), FISH pending with positive axillary lymph node. 02/05/2024 - Cancer Staged Staging form: Breast, AJCC 8th Edition - Clinical stage from 02/05/2024: Stage IIB (cT2, cN1(f), cM0, G3, ER+, VA+, HER2-) Medical/Surgical History: Past Medical History: Diagnosis Date Anxiety Essential hypertension, benign Goiter Malignant neoplasm of overlapping sites of right breast in female, estrogen receptor positive 01/19/2024 IDC, ER+/VA+/HER2 equivocal Uterine fibroid Past Surgical History: Procedure Laterality Date CORE BIOPSY OF THE BREAST Right 2023 SECTION 1988 SECTION 1987 SECTION 1984 CHOLECYSTECTOMY 1984 LAVERN AND BSO 40's Family/Social History: Family History Problem Relation Age of Onset Cancer- Other Mother pancreatic- 60, recurrance at 71. Multiple skin cancers pt thinks melanoma Cancer- Other Brother bladder Breast Cancer Maternal Aunt 76 Social History Socioeconomic History Marital status: Tobacco Use Smoking status: Never Smokeless tobacco: Never Vaping Use Vaping status: Never Used Substance and Sexual Activity Alcohol use: Yes Alcohol/week: 1.0 - 3.0 standard drink of alcohol Types: 1 - 3 Standard drinks or equivalent per week Drug use: Never Sexual activity: Yes Partners: Male control/protection: Hysterectomy Social History Narrative MOTOR VEHICLE TECHNICIAN: Para: 3 Age at of first child: 18 Age of menarche: 11 Age of menopause: 40's- pt had a complete hysterectomy, was on estradiol patch x few months following. Patient denies hormonal therapy at this time. BREAST (GENERAL): Patient admits to self-breast exams and does them several times per month. Date of patient's first mammogram: Age 39 Date of most recent mammogram: 01/12/2024 Bra/Cup Size: 38DD BREAST(HISTORICAL BIOPSY/THERAPY/TREATMENT) Patient admits to previous breast biopsy(s). Patient admits to being told they personally have breast cancer or a breast malignancy. Patient denies chemotherapy, hormone therapy or radiation therapy during the last month. Social Determinants of Health Financial Resource Strain: Medium Risk (02/05/2024) Overall Financial Resource Strain (CARDIA) Difficulty of Paying Living Expenses: Somewhat hard Food Insecurity: No Food Insecurity (02/05/2024) Hunger Vital Sign Worried About Running Out of Food in the Last Year: Never true Ran Out of Food in the Last Year: Never true Transportation Needs: No Transportation Needs (02/05/2024) PRAPARE - Transportation Lack of Transportation (Medical): No Lack of Transportation (Non-Medical): No Medications/Allergies/Immunizations: Her current medication(s) include has a current medication list which includes the following prescription(s): ASHWAGANDHA PO, ergocalciferol 1.25 MG (36453 UT) capsule, HERBAL PRODUCT, hydroCHLOROthiazide 25 MG tablet, levothyroxine 50 MCG tablet, magnesium oxide 400 MG tablet, and Turmeric (QC TUMERIC COMPLEX PO). Allergies: Metronidazole, Immunizations: There is no immunization history on file for this patient. 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 Patient denies hormonal therapy at this time. BREAST (GENERAL): Patient admits to self-breast exams and does them several times per month. Date of patient's first mammogram: Age 39 Date of most recent mammogram: 01/12/2024 Bra/Cup Size: 38DD BREAST(HISTORICAL BIOPSY/THERAPY/TREATMENT) Patient admits to previous breast biopsy(s). Patient admits to being told they personally have breast cancer or a breast malignancy. Patient denies chemotherapy, hormone therapy or radiation therapy during the last month. Social Determinants of Health Financial Resource Strain: Medium Risk (02/05/2024) Overall Financial Resource Strain (CARDIA) Difficulty of Paying Living Expenses: Somewhat hard Food Insecurity: No Food Insecurity (02/05/2024) Hunger Vital Sign Worried About Running Out of Food in the Last Year: Never true Ran Out of Food in the Last Year: Never true Transportation Needs: No Transportation Needs (02/05/2024) PRAPARE - Transportation Lack of Transportation (Medical): No Lack of Transportation (Non-Medical): No Physical Activity: Not on file Stress: Not on file Social Connections: Not on file Intimate Partner Violence: Not on file Housing Stability: Not on file Review of Systems: Review of Systems Constitutional: Negative. HENT: Negative. Eyes: Negative. Respiratory: Negative. Cardiovascular: Negative. Gastrointestinal: Negative. Endocrine: Negative. Genitourinary: Negative. Musculoskeletal: Negative. Allergic/Immunologic: Negative. Neurological: Negative. Hematological: Negative. Psychiatric/Behavioral: Negative. Objective Physical Exam: BP 176/84 (BP Location: Left arm, BP Position: Sitting) Pulse 63 Temp 97.4 F (36.3 C) (Oral) Ht 1.65 m (5' 4.96) Wt 97.1 kg (214 lb) BMI 35.65 kg/m Smoking Status Never General/Constitutional: No acute distress. HEENT: Head: Normocephalic and atraumatic. Eyes: Extraocular movements are intact. Sclerae are anicteric. Neck: Supple, non-tender. Cardiac: Regular rate and rhythm. Pulmonary/Chest: Lungs are clear to ascultation bilaterally. Breast/lymphatics: Deferred to Dr. An Skin: Skin is warm and dry. Flush, pallor and rash absent. Abdominal: Soft, non-tender, non-distended. Extremities: Normal range of motion in all four extremities. Neurological: Conscious, alert and oriented. No focal neurologic deficit. Psychiatric: Appropriate mood and affect for clinical situation. Imaging: Deferred to Dr. An IMPRESSION: 1. Suspicious right breast masses undergone biopsy demonstrating malignancy at 3:00. Suspicious right axillary lymph node is also undergone biopsy demonstrating metastatic disease. It is not clear if clips were placed over the type of clip was placed therefore right diagnostic mammogram is recommended to document clip placement and type. Additionally, there is suggestion of possible associated calcifications extending outside the mass although due to technical factors this could represent artifact. This can also be reassessed on diagnostic mammogram with magnification views performed if required. Additionally, repeat ultrasound of the index mass could be performed for better assessment of true size. 2. Negative left mammogram. Path: [facility] review of outside slides pending Assessment & Plan Assessment & Plan: Milad Lane is a 58 y.o. female with right breast ER/VA positive, HER2 negative with positive axillary lymph node. Cancer Staging Malignant neoplasm of overlapping sites of right breast in female, estrogen receptor positive Staging form: Breast, AJCC 8th Edition - Clinical stage from 02/05/2024: Stage IIB (cT2, cN1(f), cM0, G3, ER+, VA+, HER2-) Patient seen and evaluated with Dr. Leonila An, who formulated the treatment plan. Please see Dr. An's note from the same day for further assessment and plan details. Attending Addendum I have seen the patient in conjunction with ROME Cheema and formulated the medical decision making, as above. I personally interviewed and examined the patient. I have reviewed all the available medical records, pertinent laboratory and diagnostic tests today. The plan was developed mutually at the time of this visit. I edited the above clinic note entirely and it reflects the details of my interview, exam, and medical decision making. Milad Lane is a 58 y.o. female presenting with right breast cancer with lymph node involvement.She noted a palpable lesion in the right breast just prior to scheduled mammogram. On mammogram shewas found to have 2.2cm mass at 3:00 in area of palpable concern. She had followup imaging which showed one abnormal right axillary lymph node measuring 2.4cm in greatest dimension with an additionalnormal appearing lymph node. She underwent biopsy of the right breast mass and lymph node which showed IDC, grade 3, ER/VA positive, HER2 negative on FISH with lymph node involvement. On second opinion imaging it was unclear if clips were placed at either biopsy site and ultimate size of the primary was uncertain and thus additional imaging was recommended and performed today with following results: IMPRESSION: 1. Coil clip in appropriate position at the 3:00 right breast in the center of the patient's known malignancy. Size of mass 2.8cm in greatest dimension. 2. No suspicious microcalcifications identified posterior to the patient's malignancy. 3. Abnormal right axillary lymph node which correlates with the biopsy-proven metastatic lymphadenopathy. According to outside hospital report, the biopsy marker is a ribbon clip which is not well evaluated on ultrasound. If neoadjuvant therapy is desired, consider placement of a Hydromark biopsy marker for localization. Breast: The breasts are examined in the upright and supine position. There are no palpable masses, skin retraction, nipple retraction in the left breast. In the right breast at 3:00 there is ill-defined palpable fullness measuring about 3cm without overlying skin changes, nipple retraction or discharge. Lymphatics: There is no cervical or supraclavicular adenopathy present bilaterally. There is a palpable tender right axillary lymph node. There is no left axillary lymphadenopathy. Imaging reviewed in detail as per above. Path reviewed in detail. Assessment & Plan: Milad Lane is a 58 y.o. female with right breast cancer with lymph node involvement, AWD. I have reviewed with the patient their diagnosis of stage II invasive ductal carcinoma and the natural history of this disease process. Treatment options for stage II breast cancer, including lumpectomy followed by radiation therapy and mastectomy with or without reconstruction were discussed with the patient. The equivalent survival between lumpectomy with adjuvant radiation therapy and mastectomy with or without reconstruction was discussed with the patient. Given the size of the lesion and the patient's breast size it was explained to the patient that she would be a candidate for breast conserving therapy. We discussed that the management of her axilla would be dependent on timing of systemic therapy andadditional staging scans if surgery is done up front given that she has one lymph node that was biopsy proven positive. With regards to systemic therapy we discussed the possibility of consideration of upfront systemic therapy particularly if interested in pursuing ISPY-2 trial which is a trial looking at neoadjuvant therapy for all subtypes of breast cancer. She is going to think about this possibility. We will plan to discuss her case at our multidisciplinary tumor board regarding time of treatment and should hopefully have a more finalized plan for order of treatment when she is meeting with Med Oncology Monday this week. She is also scheduled to meet with Plastics this week as well. We will get her set up for staging scans to include CT TAP and bone scan given lymph node involvement. We will also refer her to genetics for urgent genetic testing as this may direct her surgical decision making particularly if surgery is pursued upfront. We will set up follow up pending additional work up and ordering of treatment. Time spent: 55 minutes I spent the above mentioned duration reviewing this patient's case independently, discussing the case with colleagues, reviewing imaging and/or outside hospital reports, reviewing pathology reports, and development of documentation. Leonila An MD, FACS Surgical Oncology * Dalia Simpson RN - 02/05/2024 9:30 AM EDT Patient offered a medical mechanical adjuster for sensitive exam. Patient declined mechanical adjuster. JOCScreening Are you able to walk the length of two city blocks (500 feet)? yes Do you have trouble breathing when you lie flat? no Have you had a heart attack, blood clot, stroke, or cardiac stent in the past 3 months? no Do you have a pacemaker or implantable defibrillator? no If yes, further review required. Are you diabetic? no If so, is your blood sugar over 300 three or more days per week? no Have you had your A1C checked? no If so, is it over 8? N/A Have you previously had anesthesia? yes If so, were you told that there was trouble placing a breathing tube? no documented [facility] Telephone encounter Note* Telephone Encounter - Kari Moody RN - 02/02/2024 11:29 AM EDT February 02, 2024 Clinical Information: new outside cancer from [facility] right lymph node and rightbreast 3 o'clock, 2.0 cm from the nipple. Screening mammogram Scanned Documents Date 01/12/24 Historic screening mammograms for comparison- Scanned Documents Date Diagnostic mammogram- scanned documents Date 01/12/24 Ultrasound- Reports are in Care Everywhere Date 01/19/24 Biopsy Ultrasound or Stereotactic: Scanned Documents Date 01/19/24 Pathology: Scanned Documents Date 01/19/24 MRI: No previous images completed Date n/a [facility]08-02-2024 Miscellaneous Notes* Telephone Encounter - Kari Moody RN - 02/02/2024 11:29 AM EDT February 02, 2024 Clinical Information: new outside cancer from [facility] right lymph node and rightbreast 3 o'clock, 2.0 cm from the nipple. Screening mammogram Scanned Documents Date 01/12/24 Historic screening mammograms for comparison- Scanned Documents Date Diagnostic mammogram- scanned documents Date 01/12/24 Ultrasound- Reports are in Care Everywhere Date 01/19/24 Biopsy Ultrasound or Stereotactic: Scanned Documents Date 01/19/24 Pathology: Scanned Documents Date 01/19/24 MRI: No previous images completed Date n/a [facility] Tele[facility] encounter Note * Telephone Encounter - Kari Moody RN - 01/30/2024 2:56 PM EDT Requested imaging/path slides from: FACILITY: [facility] Pathology Request date: /January 30, 2024 FEDEX#: [id number] [facility]07-30-2024 Miscellaneous Notes* Telephone Encounter - Kari Moody RN - 01/30/2024 2:56 PM EDT Requested imaging/path slides from: FACILITY: [facility] Pathology Request date: January 30, 2024 FEDEX#: [id number] [facility] Diagnosis Onset Date Resolution Status Screening for intestinal cancer acute [facility] Work Phone: Evaluation noteNo assessment information available [facility] Work Phone: Evaluation note* Diagnosis Malignant neoplasm of overlapping sites of right breast in female, estrogen receptor positive Breast cancer metastasized to axillary lymph node, right [facility] Diagnosis History of right breast cancer- Primary [facility]* Diagnosis Malignant neoplasm of female breast, unspecified estrogen receptor status, unspecified laterality, unspecified site of breast [facility] Diagnosis Malignant neoplasm of female breast, unspecified estrogen receptor status, unspecified laterality, unspecified site of breast [facility] Diagnosis Malignant neoplasm of female breast, unspecified estrogen receptor status, unspecified laterality, unspecified site of breast- Primary Observation for suspected malignant neoplasm Malignant neoplasm of female breast, unspecified estrogen receptor status, unspecified laterality, unspecified site of breast Malignant neoplasm of female breast, unspecified estrogen receptor status, unspecified laterality, unspecified site of breast Malignant neoplasm of female breast, unspecified estrogen receptor status, unspecified laterality, unspecified site of breast [facility] Diagnosis Malignant neoplasm of overlapping sites of right breast in female, estrogen receptor positive- Primary Malignant neoplasm of overlapping sites of right breast in female, estrogen receptor positive [facility] Diagnosis Malignant neoplasm of overlapping sites of right breast in female, estrogen receptor positive- Primary Malignant neoplasm of overlapping sites of right breast in female, estrogen receptor positive documented [facility] Diagnosis Malignant neoplasm of overlapping sites of right breast in female, estrogen receptor positive- Primary Malignant neoplasm of overlapping sites of right breast in female, estrogen receptor positive [facility] Diagnosis Malignant neoplasm of female breast, unspecified estrogen receptor status, unspecified laterality, unspecified site of breast Observation for suspected malignant neoplasm Malignant neoplasm of female breast, unspecified estrogen receptor status, unspecified laterality, unspecified site of breast- Primary Observation for suspected malignant neoplasm Malignant neoplasm of overlapping sites of right breast in female, estrogen receptor positive [facility] this [facility] Diagnosis Malignant neoplasm of female breast, unspecified estrogen receptor status, unspecified laterality, unspecified site of breast Observation for suspected malignant neoplasm Malignant neoplasm of female breast, unspecified estrogen receptor status, unspecified laterality, unspecified site of breast- Primary Observation for suspected malignant neoplasm Malignant neoplasm of overlapping sites of right breast in female, estrogen receptor positive documented [facility] this [facility] Diagnosis Malignant neoplasm of female breast, unspecified estrogen receptor status, unspecified laterality, unspecified site of breast Observation for suspected malignant neoplasm Malignant neoplasm of overlapping sites of right breast in female, estrogen receptor positive [facility] Diagnosis Malignant neoplasm of female breast, unspecified estrogen receptor status, unspecified laterality, unspecified site of breast Observation for suspected malignant neoplasm Malignant neoplasm of overlapping sites of right breast in female, estrogen receptor positive [facility]* Diagnosis Encounter for antineoplastic chemotherapy- Primary Malignant neoplasm of overlapping sites of right breast in female, estrogen receptor positive [facility]* Diagnosis Malignant neoplasm of overlapping sites of right breast in female, estrogen receptor positive [facility]* Diagnosis Malignant neoplasm of overlapping sites of right breast in female, estrogen receptor positive- Primary [facility] Diagnosis Malignant neoplasm of overlapping sites of right female breast, unspecified estrogen receptor status- Primary documented in this encounter [facility]* Diagnosis Malignant neoplasm of overlapping sites of right breast in female, estrogen receptor positive documented in this encounter [facility] note* Diagnosis Breast cancer metastasized to axillary lymph node, right documented in this encounter [facility]* Diagnosis Malignant neoplasm of overlapping sites of right breast in female, estrogen receptor positive- Primary [facility] in this encounter [facility]* Diagnosis Malignant neoplasm of overlapping sites of right breast in female, estrogen receptor positive- Primary documented in this encounter [facility]* Diagnosis Breast cancer metastasized to axillary lymph node, right Observation for suspected malignant neoplasm Abnormal findings on diagnostic imaging of liver Nonspecific (abnormal) findings on radiological and other examination of biliary tract documented in this encounter [facility]* Diagnosis Malignant neoplasm of overlapping sites of right breast in female, estrogen receptor positive- Primary documented in this encounter [facility]* Diagnosis Malignant neoplasm of overlapping sites of right breast in female, estrogen receptor positive- Primary documented in this encounter [facility]* Diagnosis Malignant neoplasm of overlapping sites of right breast in female, estrogen receptor positive- Primary documented in this encounter [facility]* Diagnosis Malignant neoplasm of overlapping sites of right breast in female, estrogen receptor positive- Primary Malignant neoplasm of overlapping sites of right breast in female, estrogen receptor positive [facility]* Diagnosis Malignant neoplasm of overlapping sites of right breast in female, estrogen receptor positive- Primary [facility]* Diagnosis Malignant neoplasm of overlapping sites of right breast in female, estrogen receptor positive- Primary [facility]* Diagnosis Malignant neoplasm of overlapping sites of right breast in female, estrogen receptor positive- Primary [facility]* Diagnosis Malignant neoplasm of overlapping sites of right breast in female, estrogen receptor positive- Primary [facility]* Diagnosis Malignant neoplasm of overlapping sites of right breast in female, estrogen receptor positive- Primary [facility]* Diagnosis Malignant neoplasm of overlapping sites of right breast in female, estrogen receptor positive- Primary documented [facility] this [facility]* Diagnosis Breast cancer metastasized to axillary lymph node, right- Primary documented [facility]* Diagnosis Malignant neoplasm of overlapping sites of right breast in female, estrogen receptor positive- Primary [facility]* Diagnosis Malignant neoplasm of overlapping sites of right breast in female, estrogen receptor positive- Primary Bilateral leg edema Edema documented in this encounter [facility]* Diagnosis Bilateral leg edema Edema documented in this [facility]* Diagnosis Malignant neoplasm of overlapping sites of right breast in female, estrogen receptor positive- Primary [facility] Diagnosis Malignant neoplasm of overlapping sites of right breast in female, estrogen receptor positive- Primary 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 documented [facility] this [facility]* Diagnosis Malignant neoplasm of overlapping sites of right breast in female, estrogen receptor positive- Primary Breast cancer metastasized to axillary lymph node, right- Primary Malignant neoplasm of overlapping sites of right breast in female, estrogen receptor positive [facility]* Diagnosis Breast cancer metastasized to axillary lymph node, right Breast cancer metastasized to axillary lymph node, right- Primary Malignant neoplasm of overlapping sites of right breast in female, estrogen receptor positive [facility] Diagnosis Breast cancer metastasized to axillary lymph node, right- Primary Malignant neoplasm of overlapping sites of right breast in female, estrogen receptor positive Breast cancer metastasized to axillary lymph node, right Malignant neoplasm of overlapping sites of right breast in female, estrogen receptor positive [facility] Diagnosis Breast cancer metastasized to axillary lymph node, right Malignant neoplasm of overlapping sites of right breast in female, estrogen receptor positive Breast cancer metastasized to axillary lymph node, right [facility]* Diagnosis S/P breast lumpectomy- Primary Other postprocedural status Breast cancer metastasized to axillary lymph node, right Malignant neoplasm of overlapping sites of right breast in female, estrogen receptor positive S/P breast lumpectomy Other postprocedural status [facility]* Diagnosis Mass of right breast, unspecified quadrant [facility]* Diagnosis Breast cancer metastasized to axillary lymph node, right [facility] Diagnosis Breast cancer metastasized to axillary lymph node, right Malignant neoplasm of overlapping sites of right breast in female, estrogen receptor positive documented [facility] this [facility] Diagnosis Malignant neoplasm of overlapping sites of right breast in female, estrogen receptor positive- Primary Breast cancer metastasized to axillary lymph node, right documented [facility] this [facility] Diagnosis Malignant neoplasm of overlapping sites of right breast in female, estrogen receptor positive- Primary documented [facility] Diagnosis Malignant neoplasm of overlapping sites of right breast in female, estrogen receptor positive- Primary Breast cancer metastasized to axillary lymph node, right [facility] Diagnosis Malignant neoplasm of overlapping sites of right breast in female, estrogen receptor positive Aromatase inhibitor use Use of aromatase inhibitors documented [facility] this [facility] Diagnosis Malignant neoplasm of overlapping sites of right breast in female, estrogen receptor positive- Primary Aromatase inhibitor use Use of aromatase inhibitors Osteopenia after menopause Malignant neoplasm of overlapping sites of right breast in female, estrogen receptor positive Aromatase inhibitor use Use of aromatase inhibitors [facility] Diagnosis Malignant neoplasm of overlapping sites of right breast in female, estrogen receptor positive [facility] Diagnosis Malignant neoplasm of overlapping sites of right breast in female, estrogen receptor positive- Primary Hyponatremia Hyposmolality and/or hyponatremia documented [facility] Diagnosis Malignant neoplasm of overlapping sites of right breast in female, estrogen receptor positive- Primary Acute hyponatremia Hyposmolality and/or hyponatremia documented [facility] this [facility]ative)* Unlisted Procedure Code (Routine) - New Request Specialty Diagnoses / Procedures Referred By Contac t Referred To Contact Procedures NO MECHANICAL DVT PROPHYLAXIS Autumn Gardner PA-C [address] [place] [address] [place] [address] Referral ID Status Reason Start Date Expiration Date V isits Requested Visits Authorized [id number] New Request 02/16/2024 03/12/2025 1 1 * Unlisted Procedure Code (Routine) - New Request Specialty Diagnoses / Procedures Referred By Contac t Referred To Contact Procedures LOW RISK - NO PHARMACOLOGICAL DVT PROPHYLAXIS Autumn Gardner PA-C [address] [facility] [address] [place] [address] Referral ID Status Reason Start Date Expiration Date V isits Requested Visits Authorized [id number] New Request 02/16/2024 03/12/2025 1 1 * Unlisted Procedure Code (Routine) - New Request Specialty Diagnoses / Procedures Referred By Contac t Referred To Contact Procedures DVT/VTE RISK ASSESSMENT Autumn Gardner PA-C [address] [facility] [address] [place] [address] Referral ID Status Reason Start Date Expiration Date V isits Requested Visits Authorized [id number] New Request 02/16/2024 03/12/2025 1 1 * Radiology (Routine) - New Request Specialty Diagnoses / Procedures Referred By Perla t Referred To Contact Procedures US IMAGING ANTONIO OR Leonila An MD [address] [place] [address] Referral ID Status Reason Start Date Expiration Date V isits Requested Visits Authorized [id number] New Request 02/16/2024 03/12/2025 1 1 [facility] Consultation (Routine) - New Request Specialty Diagnoses / Procedures Referred By Contac t Referred To Contact Nutrition and Dietetics Diagnoses Malignant neoplasm of overlapping sites of right breast in female, estrogen receptor positive Wayne López APRN-SERVICE ADMINISTRATOR [address] [place] [address] Nutrition And Dietetics [facility] [address] [facility] [address] [place] [address] Referral ID Status Reason Start Date Expiration Date Visits Requested Visits Authorized [id number] New Request Workload 03/08/2024 04/02/2025 1 1 Electronically signed by Wayne López [employer] HOME DEMONSTRATION AGENT-SERVICE ADMINISTRATOR at 03/08/2024 10:50 AM EDT [facility] ([facility] Consultation (Urgent) - Pending Review Specialty Diagnoses / Procedures Referred By Contac t Referred To Contact Diagnoses Malignant neoplasm of overlapping sites of right breast in female, estrogen receptor positive Chiara Mata [employer] HOME DEMONSTRATION AGENT-SERVICE ADMINISTRATOR [address] [place] [address] Referral ID Status Reason Start Date Expiration Date V isits Requested Visits Authorized [id number] Pending Review 02/21/2024 03/17/2025 1 1 * Radiology (Emergency) - Closed Specialty Diagnoses / Procedures Referred By Contac t Referred To Contact Diagnoses Malignant neoplasm of overlapping sites of right breast in female, estrogen receptor positive Procedures MRI BREAST BILATERAL WITH AND WITHOUT CONTRAST CHG MRI BREAST WITHOUT&WITH CONTRAST W/CAD BILATERAL Chiara Mata APRN-CNP [address] [place] [address] Referral ID Status Reason Start Date Expiration Date Visits Re quested Visits Authorized [id number] Closed 02/15/2024 03/11/2025 1 1 [facility] for referral (narrative)* Unlisted Procedure Code (Routine) - New Request Specialty Diagnoses / Procedures Referred By Contac t Referred To Contact Procedures NO MECHANICAL DVT PROPHYLAXIS Leonila An MD [address] [place], [place] [id number] Referral ID Status Reason Start Date Expiration Date V isits Requested Visits Authorized [id number] New Request 08/09/2024 09/03/2025 1 1 * Unlisted Procedure Code (Routine) - New Request Specialty Diagnoses / Procedures Referred By Contac t Referred To Contact Procedures LOW RISK - NO PHARMACOLOGICAL DVT PROPHYLAXIS Leonila An MD [address] [place] [address] Referral ID Status Reason Start Date Expiration Date V isits Requested Visits Authorized [id number] New Request 08/09/2024 09/03/2025 1 1 * Unlisted Procedure Code (Routine) - New Request Specialty Diagnoses / Procedures Referred By Contac t Referred To Contact Procedures DVT/VTE RISK ASSESSMENT Leonila An MD [address] [place] [address] Referral ID Status Reason Start Date Expiration Date V isits Requested Visits Authorized [id number] New Request 08/09/2024 09/03/2025 [address] [facility] [address] (narrative)No reason for referral information [facility]WAs[facility] Work Phone: Reason for visit Narrative* Auth/Cert Specialty Diagnoses / Procedures Referred By Perla weaver Referred To Contact Diagnoses Breast cancer metastasized to axillary lymph node, right Malignant neoplasm of overlapping sites of right breast in female, estrogen receptor positive Breast cancer metastasized to axillary lymph node, right [C50.911, C77.3] Malignant neoplasm of overlapping sites of right breast in female, estrogen receptor positive [C50.811, Z17.0] Procedures VA MASTECTOMY PARTIAL MASTECTOMY PARTIAL ([place]PECT[place]) [place] [address] [place] [address] [facility] [address] [place] [address] Referral ID Status Reason Start Date Expiration Date Visits Re quested Visits Authorized [id number] [facility] Narrative* Radiology (Routine) - New Request Specialty Diagnoses / Procedures Referred By Perla t Referred To Contact Diagnoses Malignant neoplasm of overlapping sites of right breast in female, estrogen receptor positive Aromatase inhibitor use Procedures BONE DENSITY AXIAL (HIP, PELVIS, [place]) [place] [address] [place] [address] Phone: tel: fax: Referral ID Status Reason Start Date Expiration Date V isits Requested Visits Authorized [id number] New Request 11/08/2024 12/03/2025 [address] [facility] Narrative* Auth/Cert (Routine) Specialty Diagnoses / Procedures Referred By Contac t Referred To Contact Diagnoses Malignant neoplasm of overlapping sites of right breast in female, estrogen receptor positive Malignant neoplasm of overlapping sites of right breast in female, estrogen receptor positive [C50.811, Z17.0] Procedures VA RMVL [facility] CTR VAD W/SUBQ PORT/SAFE DEPOSIT ATTENDANT CTR/PRPH INSJ REMOVAL CENTRAL VENOUS ACCESS DEVICE TUNNELED W/ PORT PUMP Ihisschedule, Interventional Rad [address] [place] [address] Phone: tel: fax: [facility] [address] [place] [address] Referral ID Status Reason Start Date Expiration Date Visits Re quested Visits Authorized [id number] [address] [facility] Summary Purpose Family History No Family History Records Found Relationship Condition Age at Onset Recorded Date/T madonna mother Malignant neoplasm 60 aunt Malignant neoplasm of breast 76 uncle Malignant neoplasm Unknown brother Malignant neoplasm Unknown grandmother Malignant neoplasm Unknown Advance Directives No Advanced Directives Records Found Advance Directive Response Recorded Date/ Time Living Will Yes October 13, 2021 1:31pm Power of Architectural Practice Manager Yes October 13 1:31pm Advance Directive Response Recorded Date/ Time Name of Medical Power of Architectural Practice Manager JESSA JEFFERS October 13, 2021 1:31pm Living Will Yes October 13, 2021 1:31pm Power of Architectural Practice Manager Yes October 13 1:31pm Advance Directive Response Recorded Date/ Time Living Will Yes October 13, 2021 12:31pm Power of Architectural Practice Manager Yes October 13 12:31pm Date Activated Date Inactivated Comments 02/16/2024 6:59 AM Date Activated Date Inactivated Comments 02/16/2024 6:59 AM Documents on File Type Date Recorded Patient Charge Entry Clerk Expl anation HealthCare Power of Architectural Practice Manager 03/08/2024 12:59 PM Milad Garcia h Care Power of Architectural Practice Manager Advance Directives/Living Will 03/08/2024 12:[address] Li ving Will Documents on File Type Date Recorded Patient Charge Entry Clerk Expl anation HealthCare Power of Architectural Practice Manager 03/08/2024 12:59 PM [facility] Power of Architectural Practice Manager Advance Directives/Living Will 03/08/2024 12:59 PM Milad Small Li ving Will Date Activated Date Inactivated Comments 08/09/2024 8:20 AM Date Activated Date Inactivated Comments 02/16/2024 6:59 AM 08/09/2024 8:20 AM Date Activated Date Inactivated Comments 08/09/2024 2:03 PM Date Activated Date Inactivated Comments 08/09/2024 8:20 AM 08/09/2024 2:03 PM Date Activated Date Inactivated Comments 02/16/2024 6:59 AM 08/09/2024 8:20 AM Date Activated Date Inactivated Comments 08/09/2024 2:03 PM Date Activated Date Inactivated Comments 08/09/2024 8:20 AM 08/09/2024 2:03 PM Date Activated Date Inactivated Comments 02/16/2024 6:59 AM 08/09/2024 8:20 AM Chief Complaint and Reason for Visit Chief Complaint COVID TEST OA SCANNING ONLY Amb Documentation Pre-Surgical Testing PAT Reason for Visit Screening for intest inal cancer Chief Complaint OA SCANNING ONLY Amb Documentation Pre-Surgical Testing PAT Reason for Visit Screening for intest inal cancer Chief Complaint OA SCANNING ONLY Amb Documentation Pre-Surgical Testing PAT SCREENING Reason for Visit Screening for intest inal cancer Chief Complaint Pre-Surgical Testing PAT SCREENING Reason for Visit Screening for intest inal cancer Chief Complaint SCREENING Chief Complaint Admit Date CONSULT - BREAST September 02, 2024 8:55 am OTV September 26, 2024 2:3 3pm OTV October 02, 2024 2:46 pm xrt October 03, 2024 2:40 pm PORT FLUSH October 03, 2024 3:00 pm Reason for Visit Admit Date 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 September 02, 2024 8:55am Axillary lymphadenopathy September 26 2:33pm 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 September 26, 2024 2:33pm Malignant neoplasm of overla pping sites of right female breast October 02, 2024 2:46pm Chief Complaint Admit Date CONSULT - BREAST September 02, 2024 8:55 am OTV September 26, 2024 2:3 3pm OTV October 02, 2024 2:46 pm PORT FLUSH October 03, 2024 3:00 pm OTV October 09, 2024 2:38 pm OTV October 17, 2024 2:2 8pm OTV October 24, 2024 2:3 3pm OTV October 31, 2024 2:32pm OTV November 04, 2024 2:22pm xrt November 04, 2024 2:40pm 1 MONTH F/U POST RT December 02, 2024 9:23a m Reason for Visit Admit Date 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 September 02, 2024 8:55am Axillary lymphadenopathy September 26 2:33pm 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 September 26, 2024 2:33pm Malignant neoplasm of overla pping sites of right female breast October 02, 2024 2:46pm Malignant neoplasm of overla pping sites of right female breast October 09, 2024 2:38pm Axillary lymphadenopathy October 17 2:28pm 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 October 17, 2024 2:28pm Axillary lymphadenopathy October 24 2:33pm 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 October 24, 2024 2:33pm Axillary lymphadenopathy October 31, 2024 2 :32pm 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 October 31, 2024 2:32pm Axillary lymphadenopathy November 04, 2024 2 :22pm 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 November 04, 2024 2:22pm Reason for Visit Admit Date 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 September 02, 2024 8:55am Axillary lymphadenopathy September 26 2:33pm 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 September 26, 2024 2:33pm Malignant neoplasm of overla pping sites of right female breast October 02, 2024 2:46pm Malignant neoplasm of overla pping sites of right female breast October 09, 2024 2:38pm Axillary lymphadenopathy October 17 2:28pm 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 October 17, 2024 2:28pm Axillary lymphadenopathy October 24 2:33pm 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 October 24, 2024 2:33pm Axillary lymphadenopathy October 31, 2024 2 :32pm 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 October 31, 2024 2:32pm Axillary lymphadenopathy November 04, 2024 2 :22pm 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 November 04, 2024 2:22pm 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 December 02, 2024 9:23am Reason for Referral Specialty Diagnoses / Procedures Referred By Contac t Referred To Contact Diagnoses Malignant neoplasm of overlapping sites of right breast in female, estrogen receptor positive Breast cancer metastasized to axillary lymph node, right Procedures BREAST IMAGING SECOND OPINION READING Roel García [employer]ON[employer]ATION AGENT-SERVICE ADMINISTRATOR [address] [place] [address] Referral ID Status Reason Start Date Expiration Date V isits Requested Visits Authorized [id number] New Request 02/01/2024 02/25/2025 1 1 Specialty Diagnoses / Procedures Referred By Contac t Referred To Contact Diagnoses Malignant neoplasm of female breast, unspecified estrogen receptor status, unspecified laterality, unspecified site of breast Procedures MAMMO DIAGNOSTIC RIGHT Roel García [employer]ON[employer]ATION AGENT-SERVICE ADMINISTRATOR [address] [phone] Referral ID Status Reason Start Date Expiration Date V isits Requested Visits Authorized [id number] New Request 02/05/2024 03/01/2025 1 1 Specialty Diagnoses / Procedures Referred By Contac t Referred To Contact Diagnoses Malignant neoplasm of female breast, unspecified estrogen receptor status, unspecified laterality, unspecified site of breast Procedures US AXILLA FOR MAMMOGRAPHY RIGHT Roel García [employer]ON[employer]ATION AGENT-SERVICE ADMINISTRATOR [address] [place] [address] Referral ID Status Reason Start Date Expiration Date V isits Requested Visits Authorized [id number] New Request 02/05/2024 03/01/2025 1 1 Specialty Diagnoses / Procedures Referred By Contac t Referred To Contact Diagnoses Malignant neoplasm of female breast, unspecified estrogen receptor status, unspecified laterality, unspecified site of breast Procedures US BREAST LIMITED UNILATERAL RIGHT Roel García [employer]ATION AGENT-SERVICE ADMINISTRATOR [address] [place] [address] Referral ID Status Reason Start Date Expiration Date V isits Requested Visits Authorized [id number] New Request 02/05/2024 03/01/2025 1 1 Specialty Diagnoses / Procedures Referred By Contac t Referred To Contact Diagnoses Malignant neoplasm of female breast, unspecified estrogen receptor status, unspecified laterality, unspecified site of breast Observation for suspected malignant neoplasm Procedures NUC BONE SCAN WHOLE BODY CHG BONE &/JOINT IMAGING WHOLE BODY Roel García [employer]ONSTRATION AGENT-SERVICE ADMINISTRATOR [address] [phone] Referral ID Status Reason Start Date Expiration Date V isits Requested Visits Authorized [id number] Authorized 02/05/2024 03/01/2025 2 2 Specialty Diagnoses / Procedures Referred By Contac t Referred To Contact Diagnoses Malignant neoplasm of female breast, unspecified estrogen receptor status, unspecified laterality, unspecified site of breast Observation for suspected malignant neoplasm Procedures CT CHEST WITH CONTRAST CHG DIAGNOSTIC COMPUTED TOMOGRAPHY THORAX W/CONTRAST Roel García [employer]ONSTRATION AGENT-SERVICE ADMINISTRATOR [address] [phone] Referral ID Status Reason Start Date Expiration Date V isits Requested Visits Authorized [id number] Authorized 02/05/2024 03/01/2025 1 1 Specialty Diagnoses / Procedures Referred By Contac t Referred To Contact Diagnoses Malignant neoplasm of female breast, unspecified estrogen receptor status, unspecified laterality, unspecified site of breast Observation for suspected malignant neoplasm Procedures CT ABDOMEN/PELVIS WITH CONTRAST CHG CT ABDOMEN & PELVIS W/CONTRAST MATERIAL Roel García [employer]ONSTRATION AGENT-SERVICE ADMINISTRATOR [address] [phone] Referral ID Status Reason Start Date Expiration Date V isits Requested Visits Authorized [id number] Authorized 02/05/2024 03/01/2025 1 1 Specialty Diagnoses / Procedures Referred By Contac t Referred To Contact Genetic Counselor / Oncology Diagnoses Malignant neoplasm of female breast, unspecified estrogen receptor status, unspecified laterality, unspecified site of breast Roel García [employer]ONSTRATION AGENT-SERVICE ADMINISTRATOR [address] [phone] [facility] [address] [place] [address] Referral ID Status Reason Start Date Expiration Date V isits Requested Visits Authorized [id number] New Request 02/05/2024 03/01/2025 1 1 Specialty Diagnoses / Procedures Referred By Perla weaver Referred To Contact Social Work Diagnoses Malignant neoplasm of female breast, unspecified estrogen receptor status, unspecified laterality, unspecified site of breast Brianne, Roel Harrington, [employer]ONSTRATION AGENT-SERVICE ADMINISTRATOR [address] [place] [address] Referral ID Status Reason Start Date Expiration Date V isits Requested Visits Authorized [id number] New Request 02/05/2024 03/01/2025 1 1 Specialty Diagnoses / Procedures Referred By Perla weaver Referred To Contact Physical Therapy Diagnoses Malignant neoplasm of overlapping sites of right breast in female, estrogen receptor positive Laura Branch PA-C [address] [facility] [address] [place] [address] Referral ID Status Reason Start Date Expiration Date V isits Requested Visits Authorized [id number] New Request 02/09/2024 03/05/2025 1 1 Specialty Diagnoses / Procedures Referred By Perla weaver Referred To Contact Diagnoses Malignant neoplasm of overlapping sites of right breast in female, estrogen receptor positive Procedures ECHOCARDIOGRAM VA ECHO TTHRC R-T 2D W/WOM-MODE COMPL SPEC&COLR D Lucio Joseph MD [address] [place] [address] Referral ID Status Reason Start Date Expiration Date V isits Requested Visits Authorized [id number] Authorized 02/09/2024 03/05/2025 1 1 Referral ID Status Reason Start Date Expiration Date Visits Re quested Visits Authorized [id number] Closed 02/05/2024 03/01/2025 2 2 Referral ID Status Reason Start Date Expiration Date Visits Re quested Visits Authorized [id number] Closed 02/05/2024 03/01/2025 1 1 Referral ID Status Reason Start Date Expiration Date Visits Re quested Visits Authorized [id number] Closed 02/05/2024 03/01/2025 1 1 Referral ID Status Reason Start Date Expiration Date Visits Re quested Visits Authorized [id number] Closed 02/09/2024 03/05/2025 1 1 Specialty Diagnoses / Procedures Referred By Contac t Referred To Contact Multispecialty Diagnoses Malignant neoplasm of overlapping sites of right breast in female, estrogen receptor positive Wayne López [employer]ONSTRATION AGENT-SERVICE ADMINISTRATOR [address] [place] [address] [facility] [address] [place] [address] Referral ID Status Reason Start Date Expiration Date V isits Requested Visits Authorized [id number] New Request 02/19/2024 03/15/2025 1 1 Specialty Diagnoses / Procedures Referred By Contac t Referred To Contact Diagnoses Malignant neoplasm of overlapping sites of right breast in female, estrogen receptor positive Procedures MRI BREAST BILATERAL WITH AND WITHOUT CONTRAST CHG MRI BREAST WITHOUT&WITH CONTRAST W/CAD BILATERAL Chiara Mata COUNTY HOME DEMONSTRATION AGENT-SERVICE ADMINISTRATOR [address] [place] [address] Referral ID Status Reason Start Date Expiration Date Visits Re quested Visits Authorized [id number] Closed 02/15/2024 03/11/2025 1 1 Specialty Diagnoses / Procedures Referred By Contac t Referred To Contact Diagnoses Breast cancer metastasized to axillary lymph node, right Procedures US CLIP PLACEMENT FOR MAMMOGRAPHY Roel García [employer]ONSTRATION AGENT-SERVICE ADMINISTRATOR [address] [place] [address] Referral ID Status Reason Start Date Expiration Date V isits Requested Visits Authorized [id number] New Request 02/12/2024 03/08/2025 1 1 Specialty Diagnoses / Procedures Referred By Contac t Referred To Contact Diagnoses Breast cancer metastasized to axillary lymph node, right Observation for suspected malignant neoplasm Abnormal findings on diagnostic imaging of liver Procedures MRI ABDOMEN WITH AND WITHOUT CONTRAST CHG MRI ABDOMEN W/O & W/CONTRAST MATERIAL Roel García [employer] DEMONSTRATION AGENT-SERVICE ADMINISTRATOR [address] [place] [address] Referral ID Status Reason Start Date Expiration Date Visits Re quested Visits Authorized [id number] Closed 02/14/2024 03/10/2025 1 1 Specialty Diagnoses / Procedures Referred By Contac t Referred To Contact Physical Therapy Diagnoses Breast cancer metastasized to axillary lymph node, right Theresa Marroquin, [facility] [address] [facility] [address] [place] [address] Referral ID Status Reason Start Date Expiration Date V isits Requested Visits Authorized [id number] New Request 05/21/2024 06/15/2025 1 1 Specialty Diagnoses / Procedures Referred By Contac t Referred To Contact Diagnoses Breast cancer metastasized to axillary lymph node, right Procedures MRI BREAST BILATERAL WITH AND WITHOUT CONTRAST CHG MRI BREAST WITHOUT&WITH CONTRAST W/CAD BILATERAL Theresa Marroquin [facility] [address] [facility] [address] [place] [address] Referral ID Status Reason Start Date Expiration Date V isits Requested Visits Authorized [id number] New Request 05/21/2024 06/15/2025 1 1 Specialty Diagnoses / Procedures Referred By Contac t Referred To Contact Diagnoses Bilateral leg edema Procedures ECHOCARDIOGRAM VA ECHO TTHRC R-T 2D W/WOM-MODE COMPL SPEC&COLR D Lucio Joseph MD [address] [place] [address] Referral ID Status Reason Start Date Expiration Date V isits Requested Visits Authorized [id number] Authorized 06/04/2024 06/29/2025 1 1 Referral ID Status Reason Start Date Expiration Date Visits Re quested Visits Authorized [id number] Closed 06/04/2024 06/29/2025 1 1 Referral ID Status Reason Start Date Expiration Date Visits Re quested Visits Authorized [id number] Closed 05/21/2024 06/15/2025 1 1 Specialty Diagnoses / Procedures Referred By Contac t Referred To Contact Diagnoses Breast cancer metastasized to axillary lymph node, right Malignant neoplasm of overlapping sites of right breast in female, estrogen receptor positive Procedures US GUIDED NEEDLE LOC BREAST RIGHT VA PERQ BREAST LOC DEVICE PLACEMT 1ST LESIO US IMAG VA PERQ BREAST LOC DEVICE PLACEMT EACH LES US IMAGE Theresa MarroquinSAIGEN-SERVICE ADMINISTRATOR [address] [address] Referral ID Status Reason Start Date Expiration Date V isits Requested Visits Authorized [id number] New Request 07/19/2024 08/13/2025 1 1 Specialty Diagnoses / Procedures Referred By Contac t Referred To Contact Diagnoses Breast cancer metastasized to axillary lymph node, right Malignant neoplasm of overlapping sites of right breast in female, estrogen receptor positive Procedures MAMMO GUIDED NEEDLE LOCALIZATION BREAST RIGHT Theresa MarroquinSAIGEN-SERVICE ADMINISTRATOR [address] [address] Referral ID Status Reason Start Date Expiration Date V isits Requested Visits Authorized [id number] New Request 07/19/2024 08/13/2025 1 1 Specialty Diagnoses / Procedures Referred By Contac t Referred To Contact Diagnoses Mass of right breast, unspecified quadrant Procedures MAMMO [place] [address] [place] [address] Referral ID Status Reason Start Date Expiration Date V isits Requested Visits Authorized [id number] New Request 08/07/2024 09/01/2025 1 1 Specialty Diagnoses / Procedures Referred By Contac t Referred To Contact Diagnoses Breast cancer metastasized to axillary lymph node, right Procedures NUC BREAST/LYMPH GLAND INJECTION VA INJ RADIOACTIVE TRACER FOR ID OF SENTINEL NODE Dago Rivera APRN-SERVICE ADMINISTRATOR [address] [place] [address] Referral ID Status Reason Start Date Expiration Date Visits Re quested Visits Authorized [id number] Closed 08/08/2024 09/02/2025 1 1 Specialty Diagnoses / Procedures Referred By Contac t Referred To Contact Diagnoses Breast cancer metastasized to axillary lymph node, right Malignant neoplasm of overlapping sites of right breast in female, estrogen receptor positive Procedures MAMMO SPECIMEN RADIOGRAPH BREAST Leonila An MD [address] [place] [address] Referral ID Status Reason Start Date Expiration Date V isits Requested Visits Authorized [id number] New Request 08/08/2024 09/02/2025 1 1 Additional Source Comments INFORMATION SOURCE (unrecogn ized section and content) DATE CREATED AUTHOR 12/25/2017 [facility] DATE CREATED AUTHOR AUTHOR'S ORGANIZ ATION 04/18/2019 [facility] DATE CREATED AUTHOR AUTHOR'S ORGANIZ ATION 05/21/2020 [facility] DATE CREATED AUTHOR AUTHOR'S ORGANIZ ATION 07/17/2020 [facility] DATE CREATED AUTHOR AUTHOR'S ORGANIZ ATION 02/06/2024 [facility] DATE CREATED AUTHOR AUTHOR'S ORGANIZ ATION 12/18/2024 [facility] DATE CREATED AUTHOR AUTHOR'S ORGANIZ ATION 12/22/2024 [facility] Goals (unrecognized section and content) Goals may be documented in a n alternate sectionGoals may be documented in an alternate sectionGoals may be documented in an alternate sectionGoals may be documented in an alternate sectionGoals may be documented in an alternate sectionGoals may be documented in an alternate sectionGoals may be documented in an alternate sectionGoals may be documented in an alternate sectionGoals may be documented in an alternate section Care Teams (unrecognized sec tion and content) Team Status: Active Member Role Status Dates Dr. Emperatriz Jordan MD Primary Care Provider Active Team Status: Inactive Member Role Status Dates Dr. Emperatriz Jordan MD Primary Care Provider Active Dr. Leti Nava MD Attending Provider, Referring Provider Active Team Status: Inactive Member Role Status Dates Dr. Emperatriz Jordan MD Primary Care Prov ider, Attending Provider, Referring Provider Active After School Teacher Relationship Specialty Start Date End Date Emperatriz Jordan MD [address] [place] [phone] PCP - General Family Medicine 02/05/24 After School Teacher Relationship Specialty Start Date End Date Emperatriz Jordan MD [address] [place] [address] PCP - General Family Medicine 02/05/24 After School Teacher Relationship Specialty Start Date End Date Emperatriz Jordan MD [address] [place] [address] PCP - General Family Medicine 02/05/24 After School Teacher Relationship Specialty Start Date End Date Emperatriz Jordan MD [address] [place] [address] PCP - General Family Medicine 02/05/24 After School Teacher Relationship Specialty Start Date End Date Emperatriz Jordan MD [address] [place] [address] PCP - General Family Medicine 02/05/24 After School Teacher Relationship Specialty Start Date End Date Emperatriz Jordan MD [address] [place] [address] PCP - General Family Medicine 02/05/24 After School Teacher Relationship Specialty Start Date End Date Emperatriz Jordan MD [address] [place] [address] PCP - General Family Medicine 02/05/24 After School Teacher Relationship Specialty Start Date End Date Emperatriz Jordan MD [address] [place] [address] PCP - General Family Medicine 02/05/24 After School Teacher Relationship Specialty Start Date End Date Emperatriz Jordan MD [address] [place] [phone] PCP - General Family Medicine 02/05/24 After School Teacher Relationship Specialty Start Date End Date Emperatriz Jordan MD [address] [place] [phone] PCP - General Family Medicine 02/05/24 After School Teacher Relationship Specialty Start Date End Date Emperatriz Jordan MD [address] [place], [phone] PCP - General Family Medicine 02/05/24 After School Teacher Relationship Specialty Start Date End Date Emperatriz Jordan MD [address] [place], [phone] PCP - General Family Medicine 02/05/24 After School Teacher Relationship Specialty Start Date End Date Emperatriz Jordan MD [address] [place], [phone] PCP - General Family Medicine 02/05/24 After School Teacher Relationship Specialty Start Date End Date Emperatriz Jordan MD [address] [place] [phone] PCP - General Family Medicine 02/05/24 After School Teacher Relationship Specialty Start Date End Date Emperatriz Jordan MD [address] [place] [phone] PCP - General Family Medicine 02/05/24 After School Teacher Relationship Specialty Start Date End Date Emperatriz Jordan MD [address] [place] [phone] PCP - General Family Medicine 02/05/24 After School Teacher Relationship Specialty Start Date End Date Emperatriz Jordan MD [address] [place] [phone] PCP - General Family Medicine 02/05/24 After School Teacher Relationship Specialty Start Date End Date Emperatriz Jordan MD [address] [place] [phone] PCP - General Family Medicine 02/05/24 After School Teacher Relationship Specialty Start Date End Date Emperatriz Jordan MD [address] [place] [phone] PCP - General Family Medicine 02/05/24 After School Teacher Relationship Specialty Start Date End Date Emperatriz Jordan MD [address] [place] [phone] PCP - General Family Medicine 02/05/24 After School Teacher Relationship Specialty Start Date End Date Emperatriz Jordan MD [address] [place] [phone] PCP - General Family Medicine 02/05/24 After School Teacher Relationship Specialty Start Date End Date Emperatriz Jordan MD [address] [place] [address] PCP - General Family Medicine 02/05/24 After School Teacher Relationship Specialty Start Date End Date Emperatriz Jordan MD [address] [place] [address] PCP - General Family Medicine 02/05/24 After School Teacher Relationship Specialty Start Date End Date Emperatriz Jordan MD [address] [place] [address] PCP - General Family Medicine 02/05/24 After School Teacher Relationship Specialty Start Date End Date Emperatriz Jordan MD [address] [place] [address] PCP - General Family Medicine 02/05/24 After School Teacher Relationship Specialty Start Date End Date Emperatriz Jordan MD [address] [place] [address] PCP - General Family Medicine 02/05/24 After School Teacher Relationship Specialty Start Date End Date Emperatriz Jordan MD [address] [place] [address] PCP - General Family Medicine 02/05/24 After School Teacher Relationship Specialty Start Date End Date Emperatriz Jordan MD [address] [place] [address] PCP - General Family Medicine 02/05/24 After School Teacher Relationship Specialty Start Date End Date Emperatriz Jordan MD [address] [place] [phone] PCP - General Family Medicine 02/05/24 After School Teacher Relationship Specialty Start Date End Date Emperatriz Jordan MD [address] [place] [phone] PCP - General Family Medicine 02/05/24 After School Teacher Relationship Specialty Start Date End Date Emperatriz Jordan MD [address] [place], [phone] PCP - General Family Medicine 02/05/24 After School Teacher Relationship Specialty Start Date End Date Emperatriz Jordan MD [address] [place], [phone] PCP - General Family Medicine 02/05/24 After School Teacher Relationship Specialty Start Date End Date Emperatriz Jordan MD [address] [place], [phone] PCP - General Family Medicine 02/05/24 After School Teacher Relationship Specialty Start Date End Date Emperatriz Jordan MD [address] [place] [phone] PCP - General Family Medicine 02/05/24 After School Teacher Relationship Specialty Start Date End Date Emperatriz Jordan MD [address] [place] [phone] PCP - General Family Medicine 02/05/24 After School Teacher Relationship Specialty Start Date End Date Emperatriz Jordan MD [address] [place] [address] PCP - General Family Medicine 02/05/24 After School Teacher Relationship Specialty Start Date End Date Emperatriz Jordan MD [address] [place] [address] PCP - General Family Medicine 02/05/24 After School Teacher Relationship Specialty Start Date End Date Emperatriz Jordan MD [address] [place] [phone] PCP - General Family Medicine 02/05/24 After School Teacher Relationship Specialty Start Date End Date Emperatriz Jordan MD [address] [place] [phone] PCP - General Family Medicine 02/05/24 After School Teacher Relationship Specialty Start Date End Date Emperatriz Jordan MD [address] [place] [address] PCP - General Family Medicine 02/05/24 Team Status: Inactive Member Role Status Dates Dr. Emperatriz Jordan MD Primary Care Provider Active Start: September 02, 2024 End: September 02, 2024 Dr. Emperatriz Jordan MD Referring Provider Active Start: September 02, 2024 End: September 02, 2024 Dr. Thomas Hanson DO Attending Provider Active Start: September 02, 2024 End: September 02, 2024 Team Status: Active Member Role Status Dates Dr. Emperatriz Jordan MD Primary Care Provider Active Start: September 10, 2024 Dr. Thomas Hanson DO Attending Provider Active Start: September 10, 2024 Team Status: Active Member Role Status Dates Dr. Emperatriz Jordan MD Primary Care Provider Active Start: September 19, 2024 Dr. Thomas Hanson DO Attending Provider Active Start: September 19, 2024 Team Status: Active Member Role Status Dates Dr. Emperatriz Jordan MD Primary Care Provider Active Start: September 20, 2024 Dr. Thomas Hanson DO Attending Provider Active Start: September 20, 2024 Team Status: Inactive Member Role Status Dates Dr. Emperatriz Jordan MD Primary Care Provider Active Start: September 26, 2024 End: September 26, 2024 Dr. Emperatriz Jordan MD Referring Provider Active Start: September 26, 2024 End: September 26, 2024 Dr. Thomas Hanson DO Attending Provider Active Start: September 26, 2024 End: September 26, 2024 Team Status: Inactive Member Role Status Dates Dr. Emperatriz Jordan MD Primary Care Provider Active Start: October 02, 2024 End: October 02, 2024 Dr. Emperatriz Jordan MD Referring Provider Active Start: October 02, 2024 End: October 02, 2024 Dr. Nils Pang MD Attending Provider Active Start: October 02, 2024 End: October 02, 2024 Team Status: Active Member Role Status Dates Dr. Emperatriz Jordan MD Primary Care Provider Active Start: October 03, 2024 Dr. Thomas Hanson DO Attending Provider Active Start: October 03, 2024 Dr. Thomas Hanson DO Referring Provider Active Start: October 03, 2024 Team Status: Inactive Member Role Status Dates Dr. Emperatriz Jordan MD Primary Care Provider Active Start: October 03, 2024 End: October 03, 2024 MOISE GARCIA Attending Provider Active Start: Ap 2024 End: October 03, 2024 MOISE GARCIA Referring Provider Active Start: Ap 2024 End: October 03, 2024 After School Teacher Relationship Specialty Start Date End Date Emperatriz Jordan MD PCP - General Family Medicine 02/05/24 After School Teacher Relationship Specialty Start Date End Date Emperatriz Jordan MD PCP - General Family Medicine 02/05/24 After School Teacher Relationship Specialty Start Date End Date Emperatriz Jordan MD PCP - General Family Medicine 02/05/24 After School Teacher Relationship Specialty Start Date End Date Emperatriz Jordan MD PCP - General Family Medicine 02/05/24 After School Teacher Relationship Specialty Start Date End Date Emperatriz Jordan MD PCP - General Family Medicine 02/05/24 Team Status: Active Member Role Status Dates Dr. Emperatriz Jordan MD Primary Care Provider Active Start: September 10, 2024 Dr. Thomas Hanson DO Attending Provider Active Start: September 10, 2024 Dr. Thomas Hanson DO Referring Provider Active Start: September 10, 2024 Team Status: Active Member Role Status Dates Dr. Emperatriz Jordan MD Primary Care Provider Active Start: September 19, 2024 Dr. Thomas Hanson DO Attending Provider Active Start: September 19, 2024 Dr. Thomas Hanson DO Referring Provider Active Start: September 19, 2024 Team Status: Active Member Role Status Dates Dr. Emperatriz Jordan MD Primary Care Provider Active Start: September 20, 2024 Dr. Thomas Hanson DO Attending Provider Active Start: September 20, 2024 Dr. Thomas Hanson DO Referring Provider Active Start: September 20, 2024 Team Status: Inactive Member Role Status Dates Dr. Emperatriz Jordan MD Primary Care Provider Active Start: September 26, 2024 End: September 26, 2024 Dr. Thomas Hanson DO Attending Provider Active Start: September 26, 2024 End: September 26, 2024 Dr. Thomas Hanson DO Referring Provider Active Start: September 26, 2024 End: September 26, 2024 Team Status: Inactive Member Role Status Dates Dr. Emperatriz Jordan MD Primary Care Provider Active Start: October 02, 2024 End: October 02, 2024 Dr. Thomas Hanson DO Attending Provider Active Start: October 02, 2024 End: October 02, 2024 Dr. Thomas Hanson DO Referring Provider Active Start: October 02, 2024 End: October 02, 2024 Team Status: Inactive Member Role Status Dates Dr. Emperatriz Jordan MD Primary Care Provider Active Start: October 09, 2024 End: October 09, 2024 Dr. Thomas Hanson DO Attending Provider Active Start: October 09, 2024 End: October 09, 2024 Dr. Thomas Hanson DO Referring Provider Active Start: October 09, 2024 End: October 09, 2024 Team Status: Inactive Member Role Status Dates Dr. Emperatriz Jordan MD Primary Care Provider Active Start: October 17, 2024 End: October 17, 2024 Dr. Thomas Hanson DO Attending Provider Active Start: October 17, 2024 End: October 17, 2024 Dr. Thomas Hanson DO Referring Provider Active Start: October 17, 2024 End: October 17, 2024 Team Status: Inactive Member Role Status Dates Dr. Emperatriz Jordan MD Primary Care Provider Active Start: October 24, 2024 End: October 24, 2024 Dr. Thomas Hanson DO Attending Provider Active Start: October 24, 2024 End: October 24, 2024 Dr. Thomas Hanson DO Referring Provider Active Start: October 24, 2024 End: October 24, 2024 Team Status: Active Member Role Status Dates Dr. Emperatriz Jordan MD Primary Care Provider Active Start: October 28, 2024 Dr. Thomas Hanson DO Attending Provider Active Start: October 28, 2024 Dr. Thomas Hanson DO Referring Provider Active Start: October 28, 2024 Team Status: Active Member Role Status Dates Dr. Emperatriz Jordan MD Primary Care Provider Active Start: October 29, 2024 Dr. Thomas Hanson DO Attending Provider Active Start: October 29, 2024 Team Status: Inactive Member Role Status Dates Dr. Emperatriz Jordan MD Primary Care Provider Active Start: October 31, 2024 End: October 31, 2024 Dr. Emperatriz Jordan MD Referring Provider Active Start: October 31, 2024 End: October 31, 2024 Dr. Thomas Hanson DO Attending Provider Active Start: October 31, 2024 End: October 31, 2024 Team Status: Inactive Member Role Status Dates Dr. Emperatriz Jordan MD Primary Care Provider Active Start: November 04, 2024 End: November 04, 2024 Dr. Emperatriz Jordan MD Referring Provider Active Start: November 04, 2024 End: November 04, 2024 Dr. Thomas Hanson DO Attending Provider Active Start: November 04, 2024 End: November 04, 2024 Team Status: Active Member Role Status Dates Dr. Emperatriz Jordan MD Primary Care Provider Active Start: November 04, 2024 Dr. Thomas Hanson DO Attending Provider Active Start: November 04, 2024 Dr. Thomas Hanson DO Referring Provider Active Start: November 04, 2024 Team Status: Inactive Member Role Status Dates Dr. Emperatriz Jordan MD Primary Care Provider Active Start: December 02, 2024 End: December 02, 2024 Dr. Emperatriz Jordan MD Referring Provider Active Start: December 02, 2024 End: December 02, 2024 Dr. Thomas Hanson DO Attending Provider Active Start: December 02, 2024 End: December 02, 2024 After School Teacher Relationship Specialty Start Date End Date Emperatriz Jordan MD PCP - General Family Medicine 02/05/24 After School Teacher Relationship Specialty Start Date End Date Emperatriz Jordan MD PCP - General Family Medicine 02/05/24 Team Status: Active Member Role Status Dates Dr. Emperatriz Jordan MD Primary Care Provider Active Start: October 29, 2024 Dr. Thomas Hanson DO Attending Provider Active Start: October 29, 2024 Dr. Thomas Hanson DO Referring Provider Active Start: October 29, 2024 Team Status: Inactive Member Role Status Dates Dr. Emperatriz Jordan MD Primary Care Provider Active Start: October 31, 2024 End: October 31, 2024 Dr. Thomas Hanson DO Attending Provider Active Start: October 31, 2024 End: October 31, 2024 Dr. Thomas Hanson DO Referring Provider Active Start: October 31, 2024 End: October 31, 2024 Team Status: Inactive Member Role Status Dates Dr. Emperatriz Jordan MD Primary Care Provider Active Start: November 04, 2024 End: November 04, 2024 Dr. Thomas Hanson DO Attending Provider Active Start: November 04, 2024 End: November 04, 2024 Dr. Thomas Hanson DO Referring Provider Active Start: November 04, 2024 End: November 04, 2024 Team Status: Inactive Member Role Status Dates ALEJANDRA GARCIA Attending Provider Active Start: J 2024 End: December 16, 2024 ALEJANDRA GARCIA Referring Provider Active Start: J 2024 End: December 16, 2024 Dr. Emperatriz Jordan MD Primary Care Provider Active Start: December 16, 2024 End: December 16, 2024 Source Comments (unrecognize d section and content) In the event this informatio n is protected by the Federal Confidentiality of Alcohol and Drug Abuse Patient Records regulations: The Federal rules restrict any use of the information to criminally investigate or prosecute any alcohol or drug abuse patient.[facility] the event this information is protected by the Federal Confidentiality of Alcohol and Drug Abuse Patient Records regulations: The Federal rules restrict any use of the information to criminally investigate or prosecute any alcohol or drug abuse patient.[facility] the event this information is protected by the Federal Confidentiality of Alcohol and Drug Abuse Patient Records regulations: The Federal rules restrict any use of the information to criminally investigate or prosecute any alcohol or drug abuse patient.[facility] the event this information is protected by the Federal Confidentiality of Alcohol and Drug Abuse Patient Records regulations: The Federal rules restrict any use of the information to criminally investigate or prosecute any alcohol or drug abuse patient.[facility] Reason for Visit (unrecogniz ed section and content) Specialty Diagnoses / Procedures Referred By Perla weaver Referred To Contact Diagnoses Malignant neoplasm of overlapping sites of right breast in female, estrogen receptor positive Breast cancer metastasized to axillary lymph node, right Procedures BREAST IMAGING SECOND OPINION READING Roel García, COUNTY HOME DEMONSTRATION AGENT-SERVICE ADMINISTRATOR [address] [place] [address] Referral ID Status Reason Start Date Expiration Date V isits Requested Visits Authorized [id number] New Request 02/01/2024 02/25/2025 1 1 Specialty Diagnoses / Procedures Referred By Perla weaver Referred To Contact Diagnoses Malignant neoplasm of female breast, unspecified estrogen receptor status, unspecified laterality, unspecified site of breast Procedures MAMMO DIAGNOSTIC RIGHT Roel García [employer]ATION AGENT-SERVICE ADMINISTRATOR [address] [place] [address] Referral ID Status Reason Start Date Expiration Date V isits Requested Visits Authorized [id number] New Request 02/05/2024 03/01/2025 1 1 Specialty Diagnoses / Procedures Referred By Perla t Referred To Contact Diagnoses Malignant neoplasm of female breast, unspecified estrogen receptor status, unspecified laterality, unspecified site of breast Procedures US AXILLA FOR MAMMOGRAPHY RIGHT Roel García [employer]ON[employer]ATION AGENT-SERVICE ADMINISTRATOR [address] [place] [address] Referral ID Status Reason Start Date Expiration Date V isits Requested Visits Authorized [id number] New Request 02/05/2024 03/01/2025 1 1 Specialty Diagnoses / Procedures Referred By Perla weaver Referred To Contact Diagnoses Malignant neoplasm of female breast, unspecified estrogen receptor status, unspecified laterality, unspecified site of breast Procedures US BREAST LIMITED UNILATERAL RIGHT Roel García, [employer]ONSTRATION AGENT-SERVICE ADMINISTRATOR [address] [place] [address] Referral ID Status Reason Start Date Expiration Date V isits Requested Visits Authorized [id number] New Request 02/05/2024 03/01/2025 1 1 Reason Comments New Patient New right breast IDC at 3:00. ER/VA+ HER2 FISH pending with +LN. Found on screening mammogram. Pt endorses a palpable mass which the patient feels is getting larger. Pt also endorses intermittent pain and itching as well. Specialty Diagnoses / Procedures Referred By Perla weaver Referred To Contact Surgical Oncology Diagnoses New Breast ca- IDC ER+, VA+, Her2 pending- records at [facility]- scheduled for MRI on 02/09/24 (should she cancel this) Procedures NEW BREAST SURG ONC Rachel Vaz MD [address] [place] [address] Leonila An MD [address] [place] [address] Referral ID Status Reason Start Date Expiration Date V isits Requested Visits Authorized [id number] New Request 02/05/2024 03/01/2025 1 1 Reason Comments New Patient Specialty Diagnoses / Procedures Referred By Perla t Referred To Contact Medical Oncology / Oncology Diagnoses New Breast ca- IDC ER+, VA+, Her2 pending- records at [facility] Procedures NEW BREAST MED ONC Rachel Vaz MD [address] [place] [address] Vern Corona MD [address] [place] [address] [address], [address] [place] [address] Referral ID Status Reason Start Date Expiration Date V isits Requested Visits Authorized [id number] New Request 02/26/2024 03/22/2025 1 1 Reason Comments Pre-op Exam Here today for preop on port placement Specialty Diagnoses / Procedures Referred By Perla t Referred To Contact Diagnoses Malignant neoplasm of female breast, unspecified estrogen receptor status, unspecified laterality, unspecified site of breast Observation for suspected malignant neoplasm Procedures NUC BONE SCAN WHOLE BODY CHG BONE &/JOINT IMAGING WHOLE BODY Roel García APRN-SERVICE ADMINISTRATOR [address] [place] [address] Referral ID Status Reason Start Date Expiration Date Visits Re quested Visits Authorized [id number] Closed 02/05/2024 03/01/2025 2 2 Specialty Diagnoses / Procedures Referred By Perla t Referred To Contact Diagnoses Malignant neoplasm of female breast, unspecified estrogen receptor status, unspecified laterality, unspecified site of breast Observation for suspected malignant neoplasm Procedures CT CHEST WITH CONTRAST CHG DIAGNOSTIC COMPUTED TOMOGRAPHY THORAX W/CONTRAST Roel García [employer]ONSTRATION AGENT-SERVICE ADMINISTRATOR [address] [place] [address] Referral ID Status Reason Start Date Expiration Date Visits Re quested Visits Authorized [id number] Closed 02/05/2024 03/01/2025 1 1 Specialty Diagnoses / Procedures Referred By Contac t Referred To Contact Diagnoses Malignant neoplasm of female breast, unspecified estrogen receptor status, unspecified laterality, unspecified site of breast Observation for suspected malignant neoplasm Procedures CT ABDOMEN/PELVIS WITH CONTRAST CHG CT ABDOMEN & PELVIS W/CONTRAST MATERIAL Roel García APRN-EMERALD [address] [place] [address] Referral ID Status Reason Start Date Expiration Date Visits Re quested Visits Authorized [id number] Closed 02/05/2024 03/01/2025 1 1 Specialty Diagnoses / Procedures Referred By Contac t Referred To Contact Diagnoses Malignant neoplasm of overlapping sites of right breast in female, estrogen receptor positive Procedures ECHOCARDIOGRAM VA ECHO TTHRC R-T 2D W/WOM-MODE COMPL SPEC&COLR D Lucio Joseph MD [address] [place] [address] Referral ID Status Reason Start Date Expiration Date Visits Re quested Visits Authorized [id number] Closed 02/09/2024 03/05/2025 1 1 Reason Onset Date Comments Patient Education 02/15/2024 Specialty Diagnoses / Procedures Referred By Contac t Referred To Contact Diagnoses Malignant neoplasm of overlapping sites of right breast in female, estrogen receptor positive Malignant neoplasm of overlapping sites of right breast in female, estrogen receptor positive [C50.811, Z17.0] Procedures VA INSJ TUNNELED CTR VAD W/SUBQ PORT AGE 4 YR/> INSERTION CVC TUNNELED W/ [place] [address] [place] [address] [facility] [address] [place] [address] Referral ID Status Reason Start Date Expiration Date Visits Re quested Visits Authorized [id number] 1 1 Reason Onset Date Comments FMLA/Disability 02/16/2024 Reason Onset Date Comments Patient Education 02/15/2024 Reason Comments Hair/Scalp Problem Specialty Diagnoses / Procedures Referred By Perla t Referred To Contact Diagnoses Malignant neoplasm of overlapping sites of right breast in female, estrogen receptor positive Procedures MRI BREAST BILATERAL WITH AND WITHOUT CONTRAST CHG MRI BREAST WITHOUT&WITH CONTRAST W/CAD BILATERAL Chiara Mata Juan, COUNTY HOME DEMONSTRATION AGENT-SERVICE ADMINISTRATOR [address] [place] [address] Referral ID Status Reason Start Date Expiration Date Visits Re quested Visits Authorized [id number] Closed 02/15/2024 03/11/2025 1 1 Specialty Diagnoses / Procedures Referred By Perla t Referred To Contact Diagnoses Breast cancer metastasized to axillary lymph node, right Procedures US CLIP PLACEMENT FOR MAMMOGRAPHY Roel García [employer]ONSTRATION AGENT-SERVICE ADMINISTRATOR [address] [place] [address] Referral ID Status Reason Start Date Expiration Date V isits Requested Visits Authorized [id number] New Request 02/12/2024 03/08/2025 1 1 Reason Comments Chemotherapy AC Reason Comments Chemotherapy AC #1 Specialty Diagnoses / Procedures Referred By Perla weaver Referred To Contact Diagnoses Breast cancer metastasized to axillary lymph node, right Observation for suspected malignant neoplasm Abnormal findings on diagnostic imaging of liver Procedures MRI ABDOMEN WITH AND WITHOUT CONTRAST CHG MRI ABDOMEN W/O & W/CONTRAST MATERIAL Roel García [employer] DEMONSTRATION AGENT-SERVICE ADMINISTRATOR [address] [place] [address] Referral ID Status Reason Start Date Expiration Date Visits Re quested Visits Authorized [id number] Closed 02/14/2024 03/10/2025 1 1 Reason Comments Chemotherapy C2D1 AC Immunization/Injection Neulasta obi Reason Comments Chemotherapy AC Reason Comments New Patient Breast Cancer New patient visit to discuss RT for RIGHT breast cancer Specialty Diagnoses / Procedures Referred By Perla t Referred To Contact Radiation Oncology Diagnoses New Patient Consult- no previous rad tx, pacemaker or defibrillator Procedures OUT PT CONSULT - BREAST Self, Self Andraos, Taisha Asif Schuler MD [address] [place] [address] Referral ID Status Reason Start Date Expiration Date V isits Requested Visits Authorized [id number] Pending Review 02/15/2024 03/11/2025 1 1 Reason Comments Chemotherapy Reason Comments Chemotherapy Breast Cancer Reason Comments Labs Only Reason Comments Chemotherapy AC #4 Reason Comments Chemotherapy C4 AC Reason Comments Chemotherapy Taxol Reason Comments Chemotherapy C2D8 taxol Reason Comments Follow-up Mid chemo check, pat ient tolerating treatment well. Reason Comments Chemotherapy Breast Cancer Specialty Diagnoses / Procedures Referred By Contac t Referred To Contact Diagnoses Bilateral leg edema Procedures ECHOCARDIOGRAM VA ECHO TTHRC R-T 2D W/WOM-MODE COMPL SPEC&COLR D Lucio Joseph MD [address] [place] [address] Referral ID Status Reason Start Date Expiration Date Visits Re quested Visits Authorized [id number] Closed 06/04/2024 06/29/2025 1 1 Specialty Diagnoses / Procedures Referred By Contac t Referred To Contact Diagnoses Breast cancer metastasized to axillary lymph node, right Procedures MRI BREAST BILATERAL WITH AND WITHOUT CONTRAST CHG MRI BREAST WITHOUT&WITH CONTRAST W/CAD BILATERAL Theresa Marroquin APRN-SERVICE ADMINISTRATOR [address] [facility] [address] [place] [address] Referral ID Status Reason Start Date Expiration Date Visits Re quested Visits Authorized [id number] Closed 05/21/2024 06/15/2025 1 1 Reason Comments Pre-op Exam Pr reports ongoing e dasia and fluid retention. Pt completed chemo last week. Specialty Diagnoses / Procedures Referred By Contac t Referred To Contact Diagnoses Breast cancer metastasized to axillary lymph node, right Malignant neoplasm of overlapping sites of right breast in female, estrogen receptor positive Procedures US GUIDED NEEDLE LOC BREAST RIGHT VA PERQ BREAST LOC DEVICE PLACEMT 1ST LESIO US IMAG VA PERQ BREAST LOC DEVICE PLACEMT EACH LES US IMAGE Theresa Marroquin APRN-CNP [address] [facility] [address] [place] [address] Referral ID Status Reason Start Date Expiration Date V isits Requested Visits Authorized [id number] New Request 07/19/2024 08/13/2025 1 1 Specialty Diagnoses / Procedures Referred By Contac t Referred To Contact Diagnoses Breast cancer metastasized to axillary lymph node, right Malignant neoplasm of overlapping sites of right breast in female, estrogen receptor positive Procedures MAMMO GUIDED NEEDLE LOCALIZATION BREAST RIGHT MarroquinTheresa, COUNTY HOME DEMONSTRATION AGENT-SERVICE ADMINISTRATOR [address] [facility] [address] [place] [address] Referral ID Status Reason Start Date Expiration Date V isits Requested Visits Authorized [id number] New Request 07/19/2024 08/13/2025 1 1 Reason Comments Post Op Visit DOS 08/09, pt denies a ny concerns and reports some edema in the right axilla. Reason Comments Breast Problem Reason Comments Breast Cancer Follow-up Reason Comments Infusion Visit zometa Specialty Diagnoses / Procedures Referred By Perla t Referred To Contact Diagnoses Malignant neoplasm of overlapping sites of right breast in female, estrogen receptor positive Lucio Joseph MD [address] [place] [address] Phone: tel: fax: Lucio Joseph MD [address] [place] [address] Phone: tel: fax: Referral ID Status Reason Start Date Expiration Date V isits Requested Visits Authorized [id number] Authorized 12/13/2024 100 100 Reason Comments On Treatment Visit Breast Cancer Scheduled Active and Recently Administ ered Medications (unrecognized section and content) Medication Order 02/14/2024 02/15/2024 02/16/2024 Acetaminophen (TYLENOL) tablet 975 mg (COMPLETED) 975 mg, Oral, ONCE, 1 dose, On Mon02/16/24 at 0700, Maximum dose of acetaminophen is 4000 mg from all sources in 24 hours., Pre-op/Pre-Proc 0817 (Given - Provid er: Casie Napier RN) Acetaminophen (TYLENOL) tablet 975 mg 975 mg, Oral, EVERY 8 HOURS NON-STANDARD, First dose on Mon02/16/24 at 1045, Until Discontinued, Administer each dose four hours after dose of ibuprofen., Post-op/Post-Proc 1045 (Canceled Entry - Provider: System Discharge - Comment: Automatically canceled at discontinue of medication order) Ibuprofen (MOTRIN) tablet 600 mg 600 mg, Oral, EVERY 8 HOURS NON-STANDARD, First dose on Mon02/16/24 at 1045, Until Discontinued, Administer each dose four hours after dose of acetaminophen., Post-op/Post-Proc 1045 (Canceled Entry - Provider: System Discharge - Comment: Automatically canceled at discontinue of medication order) Scopolamine (TRANSDERM-SCOP) patch 1 patch(Linked Group 1) 1 patch, Transdermal, ONCE, 1 dose, On Mon02/16/24 at 0700, Patient with history of motion sickness and/or previous postoperative nausea/vomiting. Each patch delivers 1 mg over 72 hours., Pre-op/Pre-Proc 0816 (Patch Applied - Provider: Casie Napier RN)1117 (Due: Patch Removed - Provider: System Discharge - Comment: Time automatically adjusted from order being discontinued) VERIFY LINKED PATCH PLACEMENT(Linked Group 1) Other, EVERY 12 HOURS, First dose on Mon02/16/24 at 0900, Until Discontinued, Confirm continued adhesion of scopolamine 1.5 mg/72hr patch at documented site. 0900 (Canceled Entry - Provider: System Discharge - Comment: Automatically canceled at discontinue of medication order) PRN Medication Order 02/14/2024 02/15/2024 02/16/2024 BUPivacaine (PF) (MARCAINE) 0.5 % injection (CANCELED) NEEDED, Starting on Mon02/16/24 at 0920, Until Mon02/16/24 at 1004, Intra-op/Intra-Proc 0920 (Given - Provid er: Leonila An MD - Comment: Mixed 1:1 with 1% lidocaine w/ epi 1:100,000 for a total of 10 mL mixture) ceFAZolin (ANCEF) 2 g in dextrose 100 mL premix IVPB (COMPLETED) 2 g, Intravenous, Administer over 30 Minutes, PATCHER HELPER TO PROCEDURE, 1 dose, Starting on Mon02/16/24 at 0659, Until Mon02/16/24 at 0900, Other, Surgical Prophylaxis, Initiate antibiotic administration 30-60 minutes prior to surgical incision and complete administration prior to surgical incision., Pre-op/Pre-Proc 0900 ($$New Bag$$ - Provider: Braulio Haddad MD) fentaNYL (SUBLIMAZE) injection 25 mcg 25 mcg, Intravenous, Administer over 2 Minutes, EVERY 5 MINUTES NEEDED, 6 doses, Starting on Mon02/16/24 at 0956, Until Mon02/16/24 at 1328, Severe Pain, Moderate Pain, Additional dose may be administered only if first dose did not result in adverse effects (RR<10, decrease in level of consciousness) and was previously documented as ineffective. May give a total of 150mcg in PACU. If pain unrelieved after 150mcg, notify Anesthesia provider., Recovery Haloperidol lactate (HALDOL) injection 1 mg 1 mg, Intravenous, ONCE NEEDED, 1 dose, Starting on Mon02/16/24 at 0956, Until Mon02/16/24 at 1328, FIRST line Nausea/vomiting,, If patient still experiencing nausea/vomiting after 1st dose use 2nd line antiemetic, Recovery Heparin 100 units/mL flush injection (CANCELED) NEEDED, Starting on Mon02/16/24 at 0940, Until Mon02/16/24 at 1004, Intra-op/Intra-Proc 0940 (Given - Provid er: Leonila An MD - Comment: instilled in port) hydrALAZINE (APRESOLINE) injection 5 mg 5 mg, Intravenous, EVERY 15 MINUTES NEEDED, 4 doses, Starting on Mon02/16/24 at 0956, Until Mon02/16/24 at 1328, SBP > 160 mmHg with HR <60 bpm, SECOND line HTN, For SBP > 160 Use if HR < 60. Administer over 2 minutes. May give a total of 20 mg while in PACU. Notify MD if BP still uncontrolled after 20 mg and no other antihypertensive agents are ordered., Recovery Iohexol (OMNIPAQUE) (CANCELED) NEEDED, Starting on Mon02/16/24 at 0920, Until Mon02/16/24 at 1004, Intra-op/Intra-Proc 0920 (Given - Provid er: Leonila An MD) Labetalol (NORMODYNE) injection 5 mg 5 mg, Intravenous, EVERY 15 MINUTES NEEDED, 4 doses, Starting on Mon02/16/24 at 0956, Until Mon02/16/24 at 1328, SBP > 160 mmHg with HR >60 bpm, FIRST line HTN. , For SBP > 160 Hold if HR < 60 and give SECOND line agent. May give a total of 20 mg while in PACU. If blood pressure uncontrolled after 20mg of labetalol administered, use second line agent or notify MD. For vials: labetalol should be treated as a SINGLE USE VIAL. Discard remaining contents after one use., Recovery Lidocaine (XYLOCAINE) 10 mg/mL injection (CANCELED) NEEDED, Starting on Mon02/16/24 at 0920, Until Mon02/16/24 at 1004, Intra-op/Intra-Proc 0920 (Given - Provid er: Leonila An MD - Comment: Mixed 1:1 with 0.25% bupivicaine for a total of 10 mL mixture) Ondansetron 4mg/2ml (ZOFRAN) injection 4 mg 4 mg, Intravenous, EVERY 6 HOURS NEEDED, Starting on Mon02/16/24 at 1039, Until Mon02/16/24 at 1328, Nausea / Vomiting, 1st line, If N/V persists through 1st line, continue 1st line therapy in addition to 2nd line therapy., Post-op/Post-Proc oxyCODONE (ROXICODONE) tablet 5 mg 5 mg, Oral, EVERY 4 HOURS NEEDED, 2 doses, Starting on Mon02/16/24 at 0956, Until Mon02/16/24 at 1328, Mild Pain, Recovery Prochlorperazine (COMPAZINE) injection 10 mg 10 mg, Intravenous, EVERY 6 HOURS NEEDED, Starting on Mon02/16/24 at 1039, Until Mon02/16/24 at 1328, Refractory Nausea Vomiting, In addition to 1st line therapy., Post-op/Post-Proc Prochlorperazine (COMPAZINE) injection 5 mg 5 mg, Intravenous, Administer over 5 Minutes, EVERY 1 HOUR NEEDED, Starting on Mon02/16/24 at 0956, Until Mon02/16/24 at 1328, Refractory Nausea Vomiting, SECOND Line, Use if patient still experiencing nausea/vomiting after 1st line antiemetic. For IV route: dilute dose with 10mL normal saline and give by slow IV push at a rate of 5mg/min. Maximum of 40mg/day., Recovery traMADol (ULTRAM) tablet 50 mg 50 mg, Oral, EVERY 6 HOURS NEEDED, Starting on Mon02/16/24 at 1039, Until Mon02/16/24 at 1328, Mild Pain, Moderate Pain, Post-op/Post-Proc No Frequency Medication Order 02/14/2024 02/15/2024 02/16/2024 Lactated ringers IV solution 1 dose, Starting on Mon02/16/24 at 0732, Until Mon02/16/24 at 1328, Created by cabinet override [id number] (Canceled Entry - Provider: System Discharge - Comment: Automatically canceled at discontinue of medication order) Linked Groups Order Group 1: Scopolamine (TRANSDERM-SCOP) patch 1 patchJump to med 1 patch, Transdermal, ONCE, 1 dose, On Mon02/16/24 at 0700, Patient with history of motion sickness and/or previous postoperative nausea/vomiting. Each patch delivers 1 mg over 72 hours., Pre-op/Pre-Proc And VERIFY LINKED PATCH PLACEMENTJump to med Other, EVERY 12 HOURS, First dose on Mon02/16/24 at 0900, Until Discontinued, Confirm continued adhesion of scopolamine 1.5 mg/72hr patch at documented site. Scheduled Medication Order 08/07/2024 08/08/2024 08/09/2024 Acetaminophen (TYLENOL) tablet 975 mg (COMPLETED) 975 mg, Oral, ONCE, 1 dose, On Mon08/09/24 at 0830, Maximum dose of acetaminophen is 4000 mg from all sources in 24 hours., Pre-op/Pre-Proc 0858 (Given - Provid er: Isamar Nye RN) Acetaminophen (TYLENOL) tablet 975 mg 975 mg, Oral, EVERY 8 HOURS NON-STANDARD, First dose on Mon08/09/24 at 1415, Until Discontinued, Administer each dose four hours after dose of ibuprofen., Post-op/Post-Proc 1415 (Canceled Entry - Provider: System Discharge - Comment: Automatically canceled at discontinue of medication order) Ibuprofen (MOTRIN) tablet 600 mg 600 mg, Oral, EVERY 8 HOURS NON-STANDARD, First dose on Mon08/09/24 at 1415, Until Discontinued, Administer each dose four hours after dose of acetaminophen., Post-op/Post-Proc 1415 (Canceled Entry - Provider: System Discharge - Comment: Automatically canceled at discontinue of medication order) Senna (SENOKOT) tablet 8.6 mg 8.6 mg, Oral, 2 TIMES DAILY, First dose on Mon08/09/24 at 1700, Until Discontinued, Post-op/Post-Proc 1700 (Canceled Entry - Provider: System Discharge - Comment: Automatically canceled at discontinue of medication order) Continuous Medication Order 08/07/2024 08/08/2024 08/09/2024 dextrose 5% and sodium chloride 0.45% 1,000 ml with potassium chloride 20 mEq premix IV solution Intravenous, at 125 mL/hr, CONTINUOUS, Starting on Mon08/09/24 at 1415, Until Mon08/09/24 at 1746, May convert to saline well when tolerating regular diet or 8 hours after exit from PACU, whichever is first., Post-op/Post-Proc 1415 (Canceled Entry - Provider: System Discharge - Comment: Automatically canceled at discontinue of medication order) Lactated ringers IV solution Intravenous, at 20 mL/hr, CONTINUOUS, Starting on Mon08/09/24 at 0915, Until Mon08/09/24 at 1746 0910 ($$New Bag$$ - Provider: Isamar Nye RN)0932 (Paused - Provider: Igor Joy MD - Comment: Switch to gravity)0933 (Restarted - Provider: Igor Joy MD)1234 ($$New Bag$$ - Provider: Igor Joy MD)1248 (Anesthesia Volume Adjustment - Provider: Igor Joy MD) PRN Medication Order 08/07/2024 08/08/2024 08/09/2024 Acetaminophen (TYLENOL) tablet 650 mg 650 mg, Oral, EVERY 6 HOURS NEEDED, Starting on Mon08/09/24 at 1241, Until Mon08/09/24 at 1746, Mild Pain, Contact anesthesiologist prior to administration if patient received acetaminophen perioperatively., Recovery BUPivacaine (PF) (MARCAINE) 0.25 % injection (CANCELED) NEEDED, Starting on Mon08/09/24 at 1015, Until Mon08/09/24 at 1254, Intra-op/Intra-Proc 1015 (Given - Provid er: Leonila An MD - Comment: mixed with marcaine) ceFAZolin (ANCEF) 2 g in dextrose 100 mL premix IVPB (COMPLETED) 2 g, Intravenous, Administer over 30 Minutes, PATCHER HELPER TO PROCEDURE, 1 dose, Starting on Mon08/09/24 at 0819, Until Mon08/09/24 at 0948, Other, Surgical Prophylaxis, Initiate antibiotic administration 30-60 minutes prior to surgical incision and complete administration prior to surgical incision., Pre-op/Pre-Proc 0933 ($$New Bag$$ - Provider: Igor Joy MD) diphenhydrAMINE (BENADRYL) injection 12.5 mg 12.5 mg, Intravenous, EVERY 30 MINUTES NEEDED, 2 doses, Starting on Mon08/09/24 at 1241, Until Mon08/09/24 at 1746, Itching, Use second dose only if first dose did not result in confusion . Do not give if age is > 65yo, Recovery fentaNYL (SUBLIMAZE) injection 50 mcg 50 mcg, Intravenous, Administer over 2 Minutes, EVERY 10 MINUTES NEEDED, 4 doses, Starting on Mon08/09/24 at 1241, Until Mon08/09/24 at 1746, Severe Pain, Recovery 1328 (Given - Provid er: Kaila Meza RN) Haloperidol lactate (HALDOL) injection 1 mg 1 mg, Intravenous, EVERY 1 HOUR NEEDED, 2 doses, Starting on Mon08/09/24 at 1241, Until Mon08/09/24 at 1746, Nausea, SECOND line antiemetic, Recovery hydrALAZINE (APRESOLINE) injection 5 mg 5 mg, Intravenous, EVERY 15 MINUTES NEEDED, 4 doses, Starting on Mon08/09/24 at 1241, Until Mon08/09/24 at 1746, SBP > 180 mmHg, SECOND line HTN, For SBP > 180 Use if HR < 60. Administer over 2 minutes. May give a total of 20 mg while in PACU. Notify MD if BP still uncontrolled after 2 mg and no other antihypertensive agents are ordered., Recovery Isosulfan blue (LYMPHAZURIN) 1 % injection (CANCELED) NEEDED, Starting on Mon08/09/24 at 0948, Until Mon08/09/24 at 1254, Intra-op/Intra-Proc 0948 (Given - Provid er: Leonila An MD) Labetalol (NORMODYNE) injection 5 mg 5 mg, Intravenous, EVERY 15 MINUTES NEEDED, 4 doses, Starting on Mon08/09/24 at 1241, Until Mon08/09/24 at 1746, SBP > 180 mmHg with HR >60 bpm, FIRST line HTN. , For SBP > 180 Hold if HR < 60 and give SECOND line agent. May give a total of 20 mg while in PACU. If blood pressure uncontrolled after 20mg of labetalol administered, use second line agent or notify MD. For vials: labetalol should be treated as a SINGLE USE VIAL. Discard remaining contents after one use., Recovery Lidocaine-epinephrine 1%-1:[id number] injection (CANCELED) NEEDED, Starting on Mon08/09/24 at 1015, Until Mon08/09/24 at 1254, Intra-op/Intra-Proc 1015 (Given - Provid er: Leonila An MD - Comment: mixed with lide w/ epi) Ondansetron (ZOFRAN) tablet 4 mg(Linked Group 1) 4 mg, Oral, EVERY 6 HOURS NEEDED, Starting on Mon08/09/24 at 1403, Until Mon08/09/24 at 1746, Nausea / Vomiting, 1st line, If N/V persists through 1st line, continue 1st line therapy in addition to 2nd line therapy., Post-op/Post-Proc Ondansetron 4mg/2ml (ZOFRAN) injection 4 mg(Linked Group 1) 4 mg, Intravenous, EVERY 6 HOURS NEEDED, Starting on Mon08/09/24 at 1403, Until Mon08/09/24 at 1746, Nausea / Vomiting, 1st line, If N/V persists through 1st line, continue 1st line therapy in addition to 2nd line therapy., Post-op/Post-Proc oxyCODONE (ROXICODONE) tablet 2.5 mg(Linked Group 2) 2.5 mg, Oral, EVERY 4 HOURS NEEDED, Starting on Mon08/09/24 at 1403, Until Mon08/09/24 at 1746, Moderate Pain, Severe Pain, Use as initial dose. Higher dose may be administered if lower dose was previously documented as ineffective and did not result in adverse effects (RR<10, decrease in level of consciousness)., Post-op/Post-Proc oxyCODONE (ROXICODONE) tablet 5 mg(Linked Group 2) 5 mg, Oral, EVERY 4 HOURS NEEDED, Starting on Mon08/09/24 at 1403, Until Mon08/09/24 at 1746, Moderate Pain, Severe Pain, Higher dose may be administered if lower dose was previously documented as ineffective and did not result in adverse effects (RR<10, decrease in level of consciousness). Decrease back to lower dose if patient has adverse effects, or no PRN used in previous 12 hours., Post-op/Post-Proc Prochlorperazine (COMPAZINE) injection 10 mg 10 mg, Intravenous, EVERY 6 HOURS NEEDED, Starting on Mon08/09/24 at 1403, Until Mon08/09/24 at 1746, Nausea / Vomiting, 2nd line, For IV route: dilute dose with 10mL normal saline and give by slow IV push at a rate of 5mg/min. Maximum of 40mg/day., Post-op/Post-Proc Prochlorperazine (COMPAZINE) injection 5 mg 5 mg, Intravenous, EVERY 1 HOUR NEEDED, 2 doses, Starting on Mon08/09/24 at 1241, Until Mon08/09/24 at 1746, Nausea / Vomiting, FIRST Line antiemetic, Do not administer within 6 hours of intra-operative dose. For IV route: dilute dose with 10mL normal saline and give by slow IV push at a rate of 5mg/min. Maximum of 40mg/day., Recovery 1337 (Given - Provid er: Kaila Meza RN) traMADol (ULTRAM) tablet 50 mg 50 mg, Oral, EVERY 6 HOURS NEEDED, Starting on Mon08/09/24 at 1301, Until Mon08/09/24 at 1746, Severe Pain 1314 (Given - Provid er: Kaila Meza RN) Linked Groups Order Group 1: Ondansetron 4mg/2ml (ZOFRAN) injection 4 mgJump to med 4 mg, Intravenous, EVERY 6 HOURS NEEDED, Starting on Mon08/09/24 at 1403, Until Mon08/09/24 at 1746, Nausea / Vomiting, 1st line, If N/V persists through 1st line, continue 1st line therapy in addition to 2nd line therapy., Post-op/Post-Proc Or Ondansetron (ZOFRAN) tablet 4 mgJump to med 4 mg, Oral, EVERY 6 HOURS NEEDED, Starting on Mon08/09/24 at 1403, Until Mon08/09/24 at 1746, Nausea / Vomiting, 1st line, If N/V persists through 1st line, continue 1st line therapy in addition to 2nd line therapy., Post-op/Post-Proc Group 2: oxyCODONE (ROXICODONE) tablet 2.5 mgJump to med 2.5 mg, Oral, EVERY 4 HOURS NEEDED, Starting on Mon08/09/24 at 1403, Until Mon08/09/24 at 1746, Moderate Pain, Severe Pain, Use as initial dose. Higher dose may be administered if lower dose was previously documented as ineffective and did not result in adverse effects (RR<10, decrease in level of consciousness)., Post-op/Post-Proc Or oxyCODONE (ROXICODONE) tablet 5 mgJump to med 5 mg, Oral, EVERY 4 HOURS NEEDED, Starting on Mon08/09/24 at 1403, Until Mon08/09/24 at 1746, Moderate Pain, Severe Pain, Higher dose may be administered if lower dose was previously documented as ineffective and did not result in adverse effects (RR<10, decrease in level of consciousness). Decrease back to lower dose if patient has adverse effects, or no PRN used in previous 12 hours., Post-op/Post-Proc Scheduled Medication Order 11/24/2024 11/25/2024 11/26/2024 Flumazenil (ROMAZICON) injection 0.2 mg 0.2 mg, Intravenous, SEE ADMIN INSTRUCTIONS, Starting on Mon11/26/24 at 1059, Until Mon11/26/24 at 1428, Vial to bedside in procedure room. Administer ONLY UNDER THE DIRECTION OF PHYSICIAN. Reversal of Conscious Sedation Initial dose: 0.2 mg Repeat doses: 0.2 mg repeated at one-minute intervals Maximum total cumulative dose: 1mg, Intra-op/Intra-Proc Naloxone (NARCAN) injection 0.1 mg(Linked Group 1) 0.1 mg, Intravenous, SEE ADMIN INSTRUCTIONS, Starting on Mon11/26/24 at 1059, Until Mon11/26/24 at 1428, If RR </= 7 per min and difficult to arouse give naloxone 0.1 mg q 2 mins until RR > 8/min and/or drowsiness abates. Contact provider. If no response is noted after 4 doses, consider other causes of respiratory depression. Vial to bedside in procedure room. Administer ONLY UNDER THE DIRECTION OF PHYSICIAN to a maximum dose of 2mg., Intra-op/Intra-Proc Naloxone (NARCAN) injection 0.4 mg(Linked Group 1) 0.4 mg, Intravenous, SEE ADMIN INSTRUCTIONS, Starting on Mon11/26/24 at 1059, Until Mon11/26/24 at 1428, If patient APNEIC and difficult to arouse: Give naloxone 0.4 mg q2 minutes until RR> 8/min and call a 'code blue'. If no response is noted after 4 doses, consider other causes of respiratory depression. Vial to bedside in procedure room. Administer ONLY UNDER THE DIRECTION OF PHYSICIAN to a maximum dose of 2mg., Intra-op/Intra-Proc PRN Medication Order 11/24/2024 11/25/2024 11/26/2024 Acetaminophen (TYLENOL) tablet 650 mg 650 mg, Oral, EVERY 6 HOURS NEEDED, Starting on Mon11/26/24 at 1142, Until Mon11/26/24 at 1428, Mild Pain, Maximum dose of acetaminophen is 4000 mg from all sources in 24 hours., Post-op/Post-Proc fentaNYL (SUBLIMAZE) injection 0-300 mcg 0-300 mcg, Intravenous, Administer over 2 Minutes, ADMINISTER DIRECTED, Starting on Mon11/26/24 at 1059, Until Mon11/26/24 at 1428, intraoperative pain management, Administer during procedure as directed by physician. Recorded MAR dose is cumulative amount given during procedure., Intra-op/Intra-Proc 1112 (Given - Provid er: Vitaliy Mcarthur RN)1116 (Given - Provider: Vitaliy Mcarthur RN) lidocaine-epinephrine 2 %-1:[id number] injection (COMPLETED) ONCE NEEDED, 1 dose, Starting on Mon11/26/24 at 1125, Until Mon11/26/24 at 1125, Intra-op/Intra-Proc 1125 (Given - Provid er: Kaylin Mai MD) midazolam (VERSED) injection 0-10 mg 0-10 mg, Intravenous, ADMINISTER DIRECTED, Starting on Mon11/26/24 at 1059, Until Mon11/26/24 at 1428, Procedural sedation, Administer during procedure as directed by physician. Recorded MAR dose is cumulative amount given during procedure., Intra-op/Intra-Proc 1112 (Given - Provid er: Vitaliy Mcarthur RN)1116 (Given - Provider: Vitaliy Mcarthur RN) Ondansetron (ZOFRAN) tablet 4 mg(Linked Group 2) 4 mg, Oral, EVERY 6 HOURS NEEDED, Starting on Mon11/26/24 at 1142, Until Mon11/26/24 at 1428, Nausea / Vomiting, Try oral dose form first. , Post-op/Post-Proc Ondansetron 4mg/2ml (ZOFRAN) injection 4 mg 4 mg, Intravenous, ONCE NEEDED, 1 dose, Starting on Mon11/26/24 at 1059, Until Mon11/26/24 at 1428, Nausea, Intra-op/Intra-Proc Ondansetron 4mg/2ml (ZOFRAN) injection 4 mg(Linked Group 2) 4 mg, Intravenous, EVERY 6 HOURS NEEDED, Starting on Mon11/26/24 at 1142, Until Mon11/26/24 at 1428, Nausea / Vomiting, Try oral dose form first. , Post-op/Post-Proc Linked Groups Order Group 1: Naloxone (NARCAN) injection 0.1 mgJump to med 0.1 mg, Intravenous, SEE ADMIN INSTRUCTIONS, Starting on Mon11/26/24 at 1059, Until Mon11/26/24 at 1428, If RR </= 7 per min and difficult to arouse give naloxone 0.1 mg q 2 mins until RR > 8/min and/or drowsiness abates. Contact provider. If no response is noted after 4 doses, consider other causes of respiratory depression. Vial to bedside in procedure room. Administer ONLY UNDER THE DIRECTION OF PHYSICIAN to a maximum dose of 2mg., Intra-op/Intra-Proc Or Naloxone (NARCAN) injection 0.4 mgJump to med 0.4 mg, Intravenous, SEE ADMIN INSTRUCTIONS, Starting on Mon11/26/24 at 1059, Until Mon11/26/24 at 1428, If patient APNEIC and difficult to arouse: Give naloxone 0.4 mg q2 minutes until RR> 8/min and call a 'code blue'. If no response is noted after 4 doses, consider other causes of respiratory depression. Vial to bedside in procedure room. Administer ONLY UNDER THE DIRECTION OF PHYSICIAN to a maximum dose of 2mg., Intra-op/Intra-Proc Group 2: Ondansetron (ZOFRAN) tablet 4 mgJump to med 4 mg, Oral, EVERY 6 HOURS NEEDED, Starting on Mon11/26/24 at 1142, Until Mon11/26/24 at 1428, Nausea / Vomiting, Try oral dose form first. , Post-op/Post-Proc Or Ondansetron 4mg/2ml (ZOFRAN) injection 4 mgJump to med 4 mg, Intravenous, EVERY 6 HOURS NEEDED, Starting on Mon11/26/24 at 1142, Until Mon11/26/24 at 1428, Nausea / Vomiting, Try oral dose form first. , Post-op/Post-Proc FOR RECORDS PERTAINING TO PATIENTS WHO ARE OR HAVE BEEN ENROLLED IN A CHEMICAL DEPENDENCY/SUBSTANCEABUSE PROGRAM, SOME INFORMATION MAY BE OMITTED. This clinical summary was aggregated from multiple sources. Caution should be exercised in using it in the provision of clinical care. This summary normalizes information from multiple sources, and as a consequence, information in this document may materially change the coding, format and clinical context of patient data. In addition, data may be omitted in some cases. CLINICAL DECISIONS SHOULD BE BASED ON THE PRIMARY CLINICAL RECORDS. [facility]. provides no warranty or guarantee of the accuracy or completeness of information in this document.
[2024-12-26 11:19] LABS: AST(SGOT) 17 U/L (<=31); Alanine Aminotransfer ALT/SGPT 18 U/L (<=34); Albumin, Serum 4.4 g/dL (3.4-4.8); Alkaline Phosphatase 72 U/L (35-104); Anion Gap 10 (5-15); BUN 13 mg/dL (4-19); BUN/Creat Ratio 15.9 RATIO (10-20); Bilirubin, Direct 0.17 mg/dL (0.00-0.30); Calcium,Total 8.9 mg/dL (7.6-11.0); Carbon Dioxide 23.4 mmol/L (21.0-32.0); Chloride 104 mmol/L (98-108); Cholesterol 224 mg/dL (<=200); Creatinine, Serum 0.81 mg/dL (0.70-1.20); EST Glomerular Filtration Rate 83 (>60); Globulin 2.4 g/dL (2.2-4.2); Glucose 81 mg/dL (70-99); High Density Lipoprotein 57 mg/dL; Low Density Lipoprotein Calc. 131 mg/dL; Magnesium 2.4 mg/dL (1.5-2.2); Potassium 4.4 mmol/L (3.3-5.1); Protein, Total 6.8 g/dL (5.9-8.4); Sodium Level 137 mmol/L (133-145); Total Bilirubin 0.39 mg/dL (0.00-1.30); Triglycerides 178 mg/dL; Very Low Density Lipoprotein 36 mg/dL (5-40); cholesterol:hdl ratio screen 3.92
== END | disposition home or self-care (01) ==
LOC: MTLAB 07:03
PROVIDERS: PCP Family Medicine; Referring Provider Family Medicine; Visit Provider Family Medicine
DX: C50.811 Malignant neoplasm of overlapping sites of right female breast (principal); Z17.0 Estrogen receptor positive status [ER+]; E78.5 Hyperlipidemia, unspecified
CPT/HCPCS: 36415; 80048; 80061; 80076; 83735

== ENCOUNTER → 2024-12-27 | Outpatient (CLI) | payer OTHER, SELFPAY ==
[2024-12-27 14:31] LABS: Absolute Lymphocyte Count 0.55 X10^3/uL (0.83-4.51); Absolute Neutrophil Count 1.8 X10^3/uL (2.0-7.7); Basophil# 0.03 X10^3/uL; Basophil% 1.1 % (0-1); Eosinophil# 0.12 X10^3/uL; Eosinophils% 4.4 % (0-5); Hematocrit 31.9 % (37-47); Hemoglobin 11.4 g/dL (12.0-15.0); Lymphocyte # 0.55 X10^3/ul (0.83-4.51); Lymphocyte % 20.3 % (19-41); Mean Corp Hgb Conc 35.7 g/dL (32-36); Mean Corpuscular Hgb 32.7 pg (27.0-32.0); Mean Corpuscular Volume 91.4 fL (81-99); Mean Platelet Vol. 9.9 fl (6.2-12.0); Monocyte# 0.16 X10^3/uL; Monocyte% 5.9 % (0-10); NRBC Flagged by Analyzer 0 % (0-5); Neutrophil # 1.83 X10^3/uL (2.7-7.7); Neutrophil % 67.6 % (47-70); POSITIVE DIFFERENTIAL YES; Platelet Count 143 K/mm3 (150-450); RBC Distribution Width CV 15.9 % (11.6-14.6); RBC Distribution Width SD 51.9 fl (35.1-43.9); Red Blood Count 3.49 M/mm3 (4.2-5.4); White Blood Count 2.7 K/mm3 (4.4-11.0)
[2024-12-27 14:34] LABS: Differential Indicated SCAN CRITERIA MET
[2024-12-27 17:28] LABS: Differential Comment SCANNED
[2024-12-27 17:29] LABS: Platelet Estimate SLT DEC (ADEQ)
== END | disposition home or self-care (01) ==
LOC: MTLAB 13:12
PROVIDERS: PCP Family Medicine
DX: C50.811 Malignant neoplasm of overlapping sites of right female breast (principal)
CPT/HCPCS: 36415; 85025